=== PATIENT | male | born 1965 | race Native Hawaiian/Other Pacific Islander ===

== ENCOUNTER 2017-03-05 01:44 | Observation (INO) | payer SELFPAY ==
[2017-03-05] MEDS ORDERED: Tetanus/Diphtheria Toxoids 0.5 ml Syringe IM ONE (02:34)
[2017-03-05] MEDS ORDERED: Multivitamin (MVI) 10 ML, Thiamine 100 MG, Folic Acid 1 MG in Sodium Chloride 0.9% 1,00... IV ONE (02:34)
--- NOTE | 2017-03-05 02:36 | C.PDOC ---
History Of Present Illness <Lauren Kaur - Last Filed: 03/05/17 06:36> <Mauricio Millard - Last Filed: 03/05/17 14:21> 51 male BIBA due to public intoxication. At present time, pt appears intoxicated , awake, noted some scratches to Left index finger with mild finger. Pt unable to provide history of present illness due to intoxication. (Lauren Kaur) History Per: Patient, EMS <AaronoscarLauren shankar - Last Filed: 03/05/17 06:36> <Mauricio Millard - Last Filed: 03/05/17 14:21> Time Seen by Provider: 03/05/17 02:10 Chief Complaint (Nursing): Substance Abuse Past Medical History Reviewed: Historical Data, Nursing Documentation, Vital Signs - Medical History PMH: HTN Family History: States: Unknown Family Hx - Social History Hx Tobacco Use: No Hx Alcohol Use: Yes Hx Substance Use: No - Immunization History Hx Tetanus Toxoid Vaccination: No Hx Influenza Vaccination: No Hx Pneumococcal Vaccination: No <Lauren Kaur - Last Filed: 03/05/17 06:36> Review Of Systems Review Of Systems: ROS cannot be obtained secondary to pt's inabilty to answer questions. (pt intoxicated) <Lauren Kaur - Last Filed: 03/05/17 06:36> Physical Exam - Physical Exam Appears: Well Skin: Normal Color, Warm, Dry, Other (Left hand small punture wounds to Right 2nd and 3rd fingers. No cellulitis.) Eye(s): bilateral: PERRL (slugish eactive B/L) Nose: No Flaring Oral Mucosa: Moist Neck: Supple Cardiovascular: Rhythm Regular Respiratory: No Decreased Breath Sounds, No Accessory Muscle Use, No Rales, No Rhonchi, No Stridor, No Wheezing Gastrointestinal/Abdominal: Soft, No Tenderness, No Distention, No Guarding Extremity: Normal ROM, No Tenderness, No Pedal Edema, No Deformity Neurological/Psych: Normal Motor, Normal Reflexes <Lauren Kaur - Last Filed: 03/05/17 06:36> ED Course And Treatment - Laboratory Results Result Diagrams: 03/05/17 02:55 03/05/17 02:59 O2 Sat by Pulse Oximetry: 100 <Lauren Karu - Last Filed: 03/05/17 06:36> - Laboratory Results Result Diagrams: 03/05/17 02:55 03/05/17 02:59 <Mauricio Millard - Last Filed: 03/05/17 14:21> ED OBSERVATION Date of observation admission: 03/05/17 Time of observation admission: 02:10 <Lauren Kaur - Last Filed: 03/05/17 06:36> Discharge: Yes <Mauricio Millard - Last Filed: 03/05/17 14:21> - Observation admission statement Patient is being placed in observation because:: Alcohol intoxication (Lauren Kaur) - Goals of Observation Goals of observation are:: Diagnostics, neuro-re recheck, sx tx, sobriety, re-evaluation (Lauren Kaur) - Progress Note Progress Note: 03/05/17 03:43, pt sleeping comfortably, not n nay apparent distress. Pt is easily arousal to verbal stimuli. Neurologicaly intact. Blood work review and appears without acute abnormalities. Alcohol, serum 400 Bana bag infusion. 05:51, pt sleeping comfortably, not n nay apparent distress. Pt is easily arousal to verbal stimuli. Neurologicaly intact. Hydration continue At 06:36, pt sleeping , not in any apparent distress. case sign out to CAITLYN Hood and . Sobriety, re-evaluation, dispo- pending (Lauren Kaur) 830 Sleeping. 1030 Sleeping. 1230 Sleeping. 1420 Patient awake, dressed, steady gait, will discharge. (Mauricio Millard) Disposition <Lauren Kaur - Last Filed: 03/05/17 06:36> - Disposition Disposition Time: 02:10 <Mauricio Millard - Last Filed: 03/05/17 14:21> - Disposition Disposition: HOME/ ROUTINE Condition: STABLE - Clinical Impression Clinical Impression: Intoxication
[2017-03-05 02:59] LABS: BASO # 0.1 K/uL (0.0-0.2); BASO % 1.7 % (0.0-2.0); EOS % 0.7 % (0.0-4.0); LYMPH # 1.9 K/uL (1.0-4.3); LYMPH % 38.2 % (20.0-40.0); MEAN CELL VOLUME 78.4 fL (80.0-94.0); MEAN CORPUSCULAR HEMOGLOBIN 24.8 pg (27.0-31.0); MEAN CORPUSCULAR HGB CONC 31.7 g/dL (33.0-37.0); MONO # 0.4 K/uL (0.0-0.8); NRBC % 0.3 % (0.0-2.0); RED CELL DISTRIBUTION WIDTH 21.2 % (11.5-14.5); WHITE BLOOD COUNT 4.9 K/uL (4.8-10.8)
[2017-03-05 03:04] LABS: CHLORIDE 95 mmol/L (98-107); SODIUM 142 mmol/L (132-148)
[2017-03-05 03:06] LABS: GFR AFRICAN-AMERICAN > 60
[2017-03-05 03:07] LABS: ALB/GLOB RATIO 0.9 (1.0-2.1); ALKALINE PHOSPHATASE 181 U/L (38-126); ALT/SGPT 44 U/L (21-72); AST/SGOT 195 U/L (17-59); BILIRUBIN,TOTAL 1.4 mg/dL (0.2-1.3); BLOOD UREA NITROGEN 8 mg/dL (9-20); CALCIUM 8.2 mg/dl (8.6-10.4); CARBON DIOXIDE 26 mmol/L (22-30); GLUCOSE,RANDOM 81 mg/dL (75-110); TOTAL PROTEIN 7.5 g/dL (6.3-8.3)
[2017-03-05 03:30] LABS: ALCOHOL SERUM 460 mg/dl (0-10)
[2017-03-05 07:23] VITALS: TEMP 97.7
[2017-03-05 14:29] VITALS: BP 119/80; PULSE 79; RESP 15; O2SAT 99
== END 2017-03-05 14:21 | disposition home or self-care (01) ==
LOC: C.ER 01:44 → C.9OBSV 02:35
PROVIDERS: ADMIT Emergency Medicine; ATTEND Emergency Medicine
DX: F10.120 Alcohol abuse with intoxication, uncomplicated (principal); Y90.8 Blood alcohol level of 240 mg/100 ml or more; I10 Essential (primary) hypertension
CPT/HCPCS: 80053; 85025; 90471; 90714; 99284; G0378; G0480; J3411; J7040

== ENCOUNTER 2017-06-07 00:37 | Emergency (ER) | payer SELFPAY ==
[2017-06-07 01:13] VITALS: O2SAT 100
--- NOTE | 2017-06-07 05:06 | C.PDOC ---
History Of Present Illness 51 year old male presents to the ER with a complaint of chronic body aches. Patient admits to ETOH use tonight; denies fever or other complaints at this time. Time Seen by Provider: 06/07/17 02:02 Chief Complaint (Nursing): Abdominal Pain History Per: Patient History/Exam Limitations: no limitations Onset/Duration Of Symptoms: Hrs Current Symptoms Are (Timing): Still Present Location Of Pain/Discomfort: Other (Chronic body aches) Radiation Of Pain To:: None Quality Of Discomfort: Unable To Describe Associated Symptoms: denies: Fever, Chills Exacerbating Factors: None Alleviating Factors: None Recent travel outside of the [place]: No Past Medical History Reviewed: Historical Data, Nursing Documentation, Vital Signs Vital Signs: Last Vital Signs Temp 97.6 F 06/07/17 01:10 Pulse 98 H 06/07/17 01:10 Resp 16 06/07/17 01:10 BP 117/84 06/07/17 01:10 Pulse Ox 100 06/07/17 05:12 - Medical History PMH: HTN Surgical History: No Surg Hx Family History: States: Unknown Family Hx - Social History Hx Tobacco Use: No Hx Alcohol Use: Yes Hx Substance Use: No - Immunization History Hx Tetanus Toxoid Vaccination: No Hx Influenza Vaccination: No Hx Pneumococcal Vaccination: No Review Of Systems Constitutional: Positive for: Other (Chronic body aches). Negative for: Fever, Chills Gastrointestinal: Negative for: Nausea, Vomiting, Diarrhea Physical Exam - Physical Exam Appears: Non-toxic, No Acute Distress, Other (ETOH on breath) Skin: Normal Color, Warm, Dry Head: Atraumatic, Normacephalic Eye(s): bilateral: Normal Inspection, EOMI Oral Mucosa: Moist Neck: Normal, No Midline Cervical Tenderness, No Paracervical Tenderness, Supple Chest: Symmetrical, No Tenderness Cardiovascular: Rhythm Regular Respiratory: Normal Breath Sounds, No Rales, No Rhonchi, No Wheezing Gastrointestinal/Abdominal: Soft, No Tenderness Back: No CVA Tenderness, No Vertebral Tenderness, No Paraspinal Tenderness Extremity: Normal ROM (x4) Extremity: Bilateral: Atraumatic Neurological/Psych: Oriented x3, Normal Speech Gait: Unsteady ED Course And Treatment O2 Sat by Pulse Oximetry: 100 (Room air) Pulse Ox Interpretation: Normal Progress Note: Pt is now awake and ambulatory in ED with steady gait Disposition - Disposition Disposition: HOME/ ROUTINE Disposition Time: 06:15 Condition: STABLE Instructions: Abuse of Alcohol (ED) Forms: [email or web address] (Fijian) - Clinical Impression Clinical Impression: Alcohol dependence - Scribe Statement The provider has reviewed the documentation as recorded by the Scribsalvatore Huffman All medical record entries made by the Scribe were at my direction and personally dictated by me. I have reviewed the chart and agree that the record accurately reflects my personal performance of the history, physical exam, medical decision making, and the department course for this patient. I have also personally directed, reviewed, and agree with the discharge instructions and disposition.
[2017-06-07 06:51] VITALS: BP 126/72; PULSE 76; RESP 20; TEMP 98.2
== END 2017-06-07 06:30 | disposition home or self-care (01) ==
LOC: C.ER 00:37
DX: F10.20 Alcohol dependence, uncomplicated (principal); Y90.9 Presence of alcohol in blood, level not specified

== ENCOUNTER 2017-06-22 20:28 | Emergency (ER) | payer SELFPAY ==
--- NOTE | 2017-06-22 20:51 | C.PDOC ---
History Of Present Illness 51 year old male is brought to the ED by EMS for evaluation after he was found publicly intoxicated prior to arrival. Patient admits he has been drinking since noon today and has no physical complaints at this time. Chief Complaint (Nursing): Substance Abuse History Per: Patient, EMS History/Exam Limitations: intoxication Onset/Duration Of Symptoms: Hrs Current Symptoms Are (Timing): Still Present Suicide/Self Injury Attempted (Context): None Modifying Factor(s): Alcohol Associated Symptoms: denies: Suicidal Thoughts, Suicidal Plan Involuntary Hold By: None Recent travel outside of the [place]: No Additional History Per: Patient, EMS Past Medical History Reviewed: Historical Data, Nursing Documentation, Vital Signs Vital Signs: Last Vital Signs Temp 98.8 F 06/23/17 01:24 Pulse 98 H 06/23/17 01:24 Resp 18 06/23/17 01:24 BP 100/50 L 06/23/17 01:24 Pulse Ox 97 06/23/17 01:24 - Medical History PMH: HTN Surgical History: No Surg Hx Family History: States: Unknown Family Hx - Social History Hx Tobacco Use: No Hx Alcohol Use: Yes Hx Substance Use: No - Immunization History Hx Tetanus Toxoid Vaccination: No Hx Influenza Vaccination: No Hx Pneumococcal Vaccination: No Review Of Systems Psych: Positive for: Other (EtOH intoxication ). Negative for: Suicidal ideation Physical Exam - Physical Exam Appears: No Acute Distress, Other (visibly intoxicated ) Skin: Normal Color, Warm, Dry Head: Atraumatic, Normacephalic Eye(s): bilateral: Normal Inspection Oral Mucosa: Moist, Other (alcohol odor on breath ) Neck: Supple Chest: Symmetrical, No Deformity, No Tenderness Cardiovascular: Rhythm Regular, No Murmur Respiratory: Normal Breath Sounds, No Rales, No Rhonchi, No Wheezing Extremity: Normal ROM, Capillary Refill (less than 2 seconds ) Neurological/Psych: Other (arousable to touch and verbal stimuli) Gait: Unsteady ED Course And Treatment O2 Sat by Pulse Oximetry: 98 (on RA) Pulse Ox Interpretation: Normal Disposition Counseled Patient/Family Regarding: Diagnosis - Disposition Referrals: [facility] [Outside] Disposition: HOME/ ROUTINE Disposition Time: 06:00 Condition: STABLE Instructions: Alcohol Intoxication (GEN), Abuse of Alcohol (ED) Forms: [employer] (Swiss) - POA Present On Arrival: None - Clinical Impression Clinical Impression: Intoxication, Alcohol abuse - Scribe Statement The provider has reviewed the documentation as recorded by the Scribe (Lesly Peng) Provider Attestation: All medical record entries made by the Scribe were at my direction and personally dictated by me. I have reviewed the chart and agree that the record accurately reflects my personal performance of the history, physical exam, medical decision making, and the department course for this patient. I have also personally directed, reviewed, and agree with the discharge instructions and disposition.
[2017-06-23 01:26] VITALS: RESP 18
[2017-06-23 05:06] VITALS: O2SAT 98
[2017-06-23 05:19] VITALS: BP 111/61; PULSE 90; TEMP 98.6
== END 2017-06-23 05:21 | disposition home or self-care (01) ==
LOC: C.ER 20:28
DX: F10.129 Alcohol abuse with intoxication, unspecified (principal); Y90.9 Presence of alcohol in blood, level not specified

== ENCOUNTER 2017-07-17 21:11 | Inpatient (IN) | payer OTHER ==
[2017-07-17] MEDS ORDERED: Multivitamin (MVI) 10 ML, Thiamine 100 MG, Folic Acid 1 MG in Sodium Chloride 0.9% 1,00... IV ONE (21:49)
[2017-07-17] MEDS ORDERED: Sodium Chloride 0.9% 1,000 ML ONE (21:55)
--- NOTE | 2017-07-17 21:57 | C.PDOC ---
History Of Present Illness 51 y/o M BIBEMS with alcohol intoxication. Patient states he has had abdominal pain for 1 week with NBNB vomiting and NB diarrhea. Denies fever, chills, chest pain, dyspnea. Time Seen by Provider: 07/17/17 21:30 Chief Complaint (Nursing): Substance Abuse Past Medical History Vital Signs: Last Vital Signs Temp 98.3 F 07/17/17 21:24 Pulse 84 07/17/17 21:24 Resp 18 07/17/17 21:24 BP 113/71 07/17/17 21:24 Pulse Ox 100 07/18/17 00:27 - Medical History PMH: HTN Denies: Chronic Kidney Disease Family History: States: Unknown Family Hx - Social History Hx Tobacco Use: No Hx Alcohol Use: Yes Hx Substance Use: No - Immunization History Hx Tetanus Toxoid Vaccination: No Hx Influenza Vaccination: No Hx Pneumococcal Vaccination: No Review Of Systems Except As Marked, All Systems Reviewed And Found Negative. Constitutional: Negative for: Fever Cardiovascular: Negative for: Chest Pain Physical Exam - Physical Exam Additional Physical Exam Comments: Constitutional: No acute distress. Head: Normocephalic. Atraumatic. Eyes: PERRL. ENT: Moist mucous membranes. Neck: Supple. Cardiovascular: Regular rate. Radial pulse 2+ bilaterally. Chest: No tenderness. Respiratory: Clear to auscultation bilaterally. GI: Soft. RUQ tenderness. Nondistended. Back: No CVA tenderness. Musculoskeletal: No tenderness or swelling of extremities. Skin: No rash. Neurologic: Alert, no focal deficit. No hand tremor. No tongue fasciculations. ED Course And Treatment - Laboratory Results Result Diagrams: 07/17/17 22:18 07/17/17 22:18 O2 Sat by Pulse Oximetry: 100 Medical Decision Making Medical Decision Making: CXR no acute disease. IMPRESSION: Significant bowel wall thickening involving the colon, appearance most consistent with acute colitis, cannot exclude underlying neoplasm. Small to moderate ascites. Fatty infiltration of the liver. Heterogeneous appearance to hepatic parenchyma. Some of appearance may be due to transient hepatic attenuation differences, concern for underlying lesion. Followup multiphase CT imaging with dedicated protocol or MRI recommended. Hiatal hernia. Cipro/Flagyl administered. EKG NSR 95 bpm, no ST elevations. Potassium supplementation initiated. Disposition - Disposition Disposition: HOSPITALIZED Disposition Time: 00:31 Condition: GUARDED Forms: [employer] (Serbian) - Clinical Impression Clinical Impression: Hypokalemia, Acute colitis, Alcohol intoxication
[2017-07-17 22:26] LABS: BASO # 0.1 K/uL (0.0-0.2); BASO % 1.5 % (0.0-2.0); LYMPH # 1.5 K/uL (1.0-4.3); LYMPH % 18.6 % (20.0-40.0); MEAN CELL VOLUME 87.5 fL (80.0-94.0); MEAN CORPUSCULAR HEMOGLOBIN 29.6 pg (27.0-31.0); MEAN CORPUSCULAR HGB CONC 33.8 g/dL (33.0-37.0); MEAN PLATELET VOLUME 7.6 fL (7.2-11.7); MONO # 0.7 K/uL (0.0-0.8); MONO % 8.9 % (0.0-10.0); NEUT # 5.8 K/uL (1.8-7.0); NRBC % 0.1 % (0.0-2.0); RBC 2.79 Mil/uL (4.40-5.90); RED CELL DISTRIBUTION WIDTH 23.1 % (11.5-14.5); WHITE BLOOD COUNT 8.2 K/uL (4.8-10.8)
[2017-07-17 22:27] LABS: HEMOGLOBIN 8.3 g/dL (12.0-18.0)
[2017-07-17 22:40] LABS: ALB/GLOB RATIO 0.8 (1.0-2.1); ALBUMIN 2.9 g/dL (3.5-5.0); ALT/SGPT 41 U/L (21-72); AST/SGOT 201 U/L (17-59); BLOOD UREA NITROGEN 4 mg/dL (9-20); CALCIUM 7.1 mg/dl (8.6-10.4); GFR AFRICAN-AMERICAN > 60; GFR NON-AFRICAN AMERICAN > 60; LIPASE 116 U/L (23-300)
[2017-07-17] MEDS ORDERED: Iodixanol 320 MG/ML 100 ML BOTTLE IV ONE (23:03)
--- NOTE | 2017-07-18 00:25 | CT ---
EXAM: CT Abdomen and Pelvis With Intravenous Contrast CLINICAL HISTORY: 51 years old, male; Pain; Abdominal pain; Generalized; Additional info: Abd pain TECHNIQUE: Axial computed tomography images of the abdomen and pelvis with intravenous contrast. All CT scans at this facility use one or more dose reduction techniques, viz.: automated exposure control; ma/kV adjustment per patient size (including targeted exams where dose is matched to indication; i.e. head); or iterative reconstruction technique. Coronal and sagittal reformatted images were created and reviewed. CONTRAST: 100 mL of [id number] administered intravenously. COMPARISON: No relevant prior studies available. FINDINGS: Lower thorax: Small left effusion. ABDOMEN: Liver: Fatty infiltration of the liver. Heterogeneous appearance to hepatic parenchyma. Some of appearance may be due to transient hepatic attenuation differences, concern for underlying lesion. Followup multiphase imaging recommended. Gallbladder and bile ducts: No acute abnormality as visualized. Pancreas: No acute abnormality as visualized. Spleen: No splenomegaly. Adrenals: No acute abnormality as visualized. Kidneys and ureters: Symmetric emhancement. No hydronephrosis. Stomach and bowel: Limited evaluation without enteric contrast. Small hiatal hernia. Significant bowel wall thickening involving the colon, appearance most consistent with acute colitis, cannot exclude underlying neoplasm. No obstruction. PELVIS: Bladder: No acute abnormality as visualized. Reproductive: No acute abnormality as visualized. ABDOMEN and PELVIS: Intraperitoneal space: Small to moderate ascites. No free air. Bones: Degenerative changes. Soft tissues: No acute abnormality as visualized. Vasculature: No acute abnormality as visualized. No abdominal aortic aneurysm. Lymph nodes: No acute abnormality as visualized. IMPRESSION: Significant bowel wall thickening involving the colon, appearance most consistent with acute colitis, cannot exclude underlying neoplasm. Small to moderate ascites. Fatty infiltration of the liver. Heterogeneous appearance to hepatic parenchyma. Some of appearance may be due to transient hepatic attenuation differences, concern for underlying lesion. Followup multiphase CT imaging with dedicated protocol or MRI recommended. Hiatal hernia.
[2017-07-18] MEDS ORDERED: Ciprofloxacin 400mg/200ml D5W 400 MG/200 ML BAG IVPB STA (00:30)
[2017-07-18] MEDS ORDERED: metroNIDAZOLE IV 500 mg/100 ml 500 MG/100 ML BAG IVPB STA (00:30)
[2017-07-18] MEDS ORDERED: Multivitamin (MVI) 10 ML, Thiamine 100 MG, Folic Acid 1 MG in Sodium Chloride 0.9% 1,00... IV ONE (01:32)
[2017-07-18] MEDS: Potassium Chloride 20 mEq ER Tab PO SCH ×4 (01:55→14:39)
[2017-07-18] MEDS ORDERED: Potassium Chloride 20 mEq ER Tab PO ONE ×2 (01:56→01:58)
[2017-07-18] MEDS ORDERED: Ciprofloxacin 400mg/200ml D5W 400 MG/200 ML BAG IVPB SCH (02:00)
[2017-07-18] MEDS ORDERED: metroNIDAZOLE IV 500 mg/100 ml 500 MG/100 ML BAG ONE (02:15)
[2017-07-18] MEDS ORDERED: Ciprofloxacin 400mg/200ml D5W 400 MG/200 ML BAG IVPB ONE (02:16)
--- NOTE | 2017-07-18 02:51 | CP.PCM.HP ---
<Tima Beth - Last Filed: 07/18/17 02:53> History of Present Illness - History of Present Illness History of Present Illness: PGY-1 H&P for Dr[address] Tinajero CC: abdominal pain This is a 51 year old male with PMHx alcohol abuse who presents to the ED complaining of abdominal pain that began 1 week ago. Patient states that it is a sharp pain localized on the right side of the abdomen and radiates diffusely. It is constant and nothing seems to alleviate it. Patient complains of 8-10 bouts of diarrhea during this week as well. Denies fever, chills, nausea, vomiting, chest pain, dyspnea, dysuria. PMHx: Denies PSHx: Denies Allergies: Denies Social: Denies ever smoking. Denies drugs. Patient has 2-3 drinks of Bacardi daily. Family Hx: denies PMD: denies Present on Admission - Present on Admission Any Indicators Present on Admission: No Review of Systems - Constitutional Constitutional: absent: Chills, Fever - EENT Eyes: absent: Change in Vision Ears: absent: Decreased Hearing Nose/Mouth/Throat: absent: Nasal Congestion - Cardiovascular Cardiovascular: absent: Chest Pain - Respiratory Respiratory: absent: Dyspnea - Gastrointestinal Gastrointestinal: Abdominal Pain (right sided), Diarrhea. absent: Constipation , Nausea, Vomiting - Genitourinary Genitourinary: absent: Dysuria - Musculoskeletal Musculoskeletal: absent: Back Pain - Integumentary Integumentary: absent: Rash - Neurological Neurological: absent: Weakness - Psychiatric Psychiatric: absent: Anxiety - Endocrine Endocrine: absent: Fatigue, Palpitations Past Patient History - Infectious Disease Hx of Infectious Diseases: None - Past Social History Smoking Status: Never Smoked - CARDIAC Hx Hypertension: Yes - PULMONARY Hx Respiratory Disorders: No - NEUROLOGICAL Hx Neurological Disorder: No - HEENT Hx HEENT Problems: No - RENAL Hx Chronic Kidney Disease: No - ENDOCRINE/METABOLIC Hx Endocrine Disorders: No - HEMATOLOGICAL/ONCOLOGICAL Hx Blood Disorders: No - INTEGUMENTARY Hx Dermatological Problems: No - MUSCULOSKELETAL/RHEUMATOLOGICAL Hx Musculoskeletal Disorders: No - GASTROINTESTINAL Hx Gastrointestinal Disorders: Yes Hx Liver Failure: Yes Other/Comment: LIVER CIRRHOSIS AND ASCITES. - GENITOURINARY/GYNECOLOGICAL Hx Genitourinary Disorders: No - PSYCHIATRIC Hx Substance Use: No - SURGICAL HISTORY Hx Surgeries: No - ANESTHESIA Hx Anesthesia: No Meds Allergies/Adverse Reactions: Allergies Allergy/AdvReac Type Severity Reaction Status Date / Time No Known Allergies Allergy Verified 06/22/17 20:40 Physical Exam - Constitutional Appears: No Acute Distress - Head Exam Head Exam: ATRAUMATIC, NORMOCEPHALIC - Eye Exam Eye Exam: EOMI, PERRL - ENT Exam ENT Exam: Mucous Membranes Moist - Respiratory Exam Respiratory Exam: Clear to Auscultation Bilateral. absent: Rales, Rhonchi, Wheezes - Cardiovascular Exam Cardiovascular Exam: REGULAR RHYTHM, +S1, +S2 - GI/Abdominal Exam GI & Abdominal Exam: Distended, Guarding, Normal Bowel Sounds, Soft, Tenderness (diffusely). absent: Firm - Extremities Exam Extremities exam: Positive for: pedal pulses present. Negative for: pedal edema , tenderness - Neurological Exam Neurological exam: Alert, CN II-XII Intact, Oriented x3 - Psychiatric Exam Psychiatric exam: Normal Affect, Normal Mood - Skin Skin Exam: Dry, Warm Results - Vital Signs Recent Vital Signs: Last Vital Signs Temp 97.8 F 07/18/17 02:30 Pulse 83 07/18/17 02:30 Resp 16 07/18/17 02:30 BP 115/76 07/18/17 02:30 Pulse Ox 95 07/18/17 02:30 - Labs Result Diagrams: 07/17/17 22:18 07/17/17 22:18 Labs: Laboratory Results - last 24 hr 07/17/17 07/17/17 07/17/17 21:35 22:18 22:18 WBC 8.2 D RBC 2.79 L Hgb 8.3 L Hct 24.4 L MCV 87.5 D MCH 29.6 MCHC 33.8 RDW 23.1 H Plt Count 215 D MPV 7.6 Neut % (Auto) 71.0 Lymph % (Auto) 18.6 L Whitman % (Auto) 8.9 Eos % (Auto) 0.0 Baso % (Auto) 1.5 Neut # 5.8 Lymph # 1.5 Whitman # 0.7 Eos # 0.0 Baso # 0.1 Sodium 134 Potassium 1.8 L* D Chloride 94 L Carbon Dioxide 26 Anion Gap 16 BUN 4 L Creatinine 0.5 L Est GFR ( Amer) > 60 Est GFR (Non-Af Amer) > 60 POC Glucose (mg/dL) 130 H Random Glucose 120 H Calcium 7.1 L Magnesium Total Bilirubin 2.2 H AST 201 H ALT 41 Alkaline Phosphatase 267 H Total Protein 6.5 Albumin 2.9 L Globulin 3.7 Albumin/Globulin Ratio 0.8 L Lipase 116 Alcohol, Quantitative 292 H 07/18/17 01:12 WBC RBC Hgb Hct MCV MCH MCHC RDW Plt Count MPV Neut % (Auto) Lymph % (Auto) Whitman % (Auto) Eos % (Auto) Baso % (Auto) Neut # Lymph # Whitman # Eos # Baso # Sodium Potassium Chloride Carbon Dioxide Anion Gap BUN Creatinine Est GFR ( Amer) Est GFR (Non-Af Amer) POC Glucose (mg/dL) Random Glucose Calcium Magnesium 1.4 L Total Bilirubin AST ALT Alkaline Phosphatase Total Protein Albumin Globulin Albumin/Globulin Ratio Lipase Alcohol, Quantitative Assessment & Plan - Assessment and Plan (Free Text) Plan: Colitis CT abd/pelvis with IV contrast: Significant bowel wall thickening involving the colon, appearance most consistent with acute colitis, cannot exclude underlying neoplasm. Small to moderate ascites. Fatty infiltration of the liver. Heterogeneous appearance to hepatic parenchyma. Some of appearance may be due to transient hepatic attenuation differences, concern for underlying lesion. Cipro 400 IV daily Flagyl 500 IV Q8 Alcohol abuse Elevated serum alcohol Initiated Ativan taper due to elevated LFTs CIWA protocol Seizure and aspiration precautions Banana Bag x1 IV multivitamins IV folate and thiamine NS 100cc/hr Hypokalemia K riders given in ED Kdurr 40 mEq PO Q4H Prophylactic Measure SCDs NPO for now Case DW Dr. Tanvi Beth PGY-1 <Julio Tinajero - Last Filed: 07/18/17 05:35> Results - Vital Signs Recent Vital Signs: Last Vital Signs Temp 97.4 F L 07/18/17 03:32 Pulse 103 H 07/18/17 03:45 Resp 21 07/18/17 03:32 BP 112/71 07/18/17 03:32 Pulse Ox 97 07/18/17 03:32 - Labs Result Diagrams: 07/17/17 22:18 07/17/17 22:18 Labs: Laboratory Results - last 24 hr 07/17/17 07/17/17 07/17/17 21:35 22:18 22:18 WBC 8.2 D RBC 2.79 L Hgb 8.3 L Hct 24.4 L MCV 87.5 D MCH 29.6 MCHC 33.8 RDW 23.1 H Plt Count 215 D MPV 7.6 Neut % (Auto) 71.0 Lymph % (Auto) 18.6 L Whitman % (Auto) 8.9 Eos % (Auto) 0.0 Baso % (Auto) 1.5 Neut # 5.8 Lymph # 1.5 Whitman # 0.7 Eos # 0.0 Baso # 0.1 Sodium 134 Potassium 1.8 L* D Chloride 94 L Carbon Dioxide 26 Anion Gap 16 BUN 4 L Creatinine 0.5 L Est GFR ( Amer) > 60 Est GFR (Non-Af Amer) > 60 POC Glucose (mg/dL) 130 H Random Glucose 120 H Calcium 7.1 L Magnesium Total Bilirubin 2.2 H AST 201 H ALT 41 Alkaline Phosphatase 267 H Total Protein 6.5 Albumin 2.9 L Globulin 3.7 Albumin/Globulin Ratio 0.8 L Lipase 116 Alcohol, Quantitative 292 H 07/18/17 01:12 WBC RBC Hgb Hct MCV MCH MCHC RDW Plt Count MPV Neut % (Auto) Lymph % (Auto) Whitman % (Auto) Eos % (Auto) Baso % (Auto) Neut # Lymph # Whitman # Eos # Baso # Sodium Potassium Chloride Carbon Dioxide Anion Gap BUN Creatinine Est GFR ( Amer) Est GFR (Non-Af Amer) POC Glucose (mg/dL) Random Glucose Calcium Magnesium 1.4 L Total Bilirubin AST ALT Alkaline Phosphatase Total Protein Albumin Globulin Albumin/Globulin Ratio Lipase Alcohol, Quantitative Assessment & Plan - Date & Time Date: 07/18/17 (I have seen and examined the patient. I agree with the findings and plan of care as documented by Dr. Beth. Patient with colitis. Cipro and Flagyl for now. Also with hypokalemia. Replete. Check Magnesium level. [facility] protocol for history of alcohol abuse. Monitor for acute changes.) Time: 05:33 Attending/Attestation - Attestation I have personally seen and examined this patient.: Yes I have fully participated in the care of the patient.: Yes I have reviewed all pertinent clinical information: Yes
[2017-07-18] MEDS ORDERED: Moxifloxacin IV 400mg/250ml NS 400 MG/250 ML BAG IVPB SCH (05:00)
[2017-07-18] MEDS ORDERED: metroNIDAZOLE IV 500 mg/100 ml 500 MG/100 ML BAG IVPB SCH ×2 (06:00→08:00)
[2017-07-18] MEDS: metroNIDAZOLE IV 500 mg/100 ml 500 MG/100 ML BAG IVPB SCH ×2 (08:27→15:56)
[2017-07-18] MEDS ORDERED: Sodium Chloride 0.9% 1,000 ML IV SCH ×2 (08:30→11:28)
--- NOTE | 2017-07-18 08:38 | RAD ---
HISTORY: hypokalemia COMPARISON: Comparison is made with 11/18/2015 FINDINGS: LUNGS: No evidence of new infiltrate or consolidation in the lungs PLEURA: No significant pleural effusion identified, no pneumothorax apparent. CARDIOVASCULAR: Normal. OSSEOUS STRUCTURES: No significant abnormalities. VISUALIZED UPPER ABDOMEN: Normal. OTHER FINDINGS: None. IMPRESSION: No significant interval change in the lungs noted since the previous exam.
[2017-07-18 08:40] LABS: BASO # 0.1 K/uL (0.0-0.2); EOS % 0.4 % (0.0-4.0); HEMOGLOBIN 8.6 g/dL (12.0-18.0); LYMPH # 1.5 K/uL (1.0-4.3); LYMPH % 21.6 % (20.0-40.0); MEAN CELL VOLUME 88.2 fL (80.0-94.0); MEAN CORPUSCULAR HEMOGLOBIN 29.7 pg (27.0-31.0); MEAN CORPUSCULAR HGB CONC 33.7 g/dL (33.0-37.0); MEAN PLATELET VOLUME 8.1 fL (7.2-11.7); MONO # 0.5 K/uL (0.0-0.8); MONO % 7.3 % (0.0-10.0); RBC 2.9 Mil/uL (4.40-5.90); RED CELL DISTRIBUTION WIDTH 23.2 % (11.5-14.5)
[2017-07-18] MEDS ORDERED: Magnesium Sulfate 1 gm in D5W 1 GM/100 ML BAG IVPB ONE ×2 (09:30→16:00)
[2017-07-18 09:52] LABS: ALB/GLOB RATIO 0.7 (1.0-2.1); ALBUMIN 2.5 g/dL (3.5-5.0); ALT/SGPT 34 U/L (21-72); AST/SGOT 217 U/L (17-59); BLOOD UREA NITROGEN 4 mg/dL (9-20); CALCIUM 6.9 mg/dl (8.6-10.4); GFR AFRICAN-AMERICAN > 60; GFR NON-AFRICAN AMERICAN > 60
[2017-07-18] MEDS: Thiamine 100 mg/ml Inj IV SCH (10:18)
--- NOTE | 2017-07-18 11:16 | CP.PCM.PN ---
<Abebe Kendrick - Last Filed: 07/18/17 12:06> Subjective - Date & Time of Evaluation Date of Evaluation: 07/18/17 Time of Evaluation: 11:14 - Subjective Subjective: PGY-[address] Huitron. No acute events overnight noted. Patient states he has diffuse abdominal pain but states it is worse in the upper right quadrant. He had 3 episodes of diarrhea last night. He denies vomiting. He remains lethargic but is able to follow commands. He denies chest pain, shortness of breath, fever, chills. Objective - Vital Signs/Intake and Output Vital Signs (last 24 hours): Temp Pulse Resp BP Pulse Ox 97.7 F 104 H 20 123/79 99 07/18/17 07:52 07/18/17 07:52 07/18/17 07:52 07/18/17 07:52 07/18/17 07:52 - Medications Medications: Current Medications Folic Acid 1 mg/ Sodium (Chloride) 100.2 mls @ 60 mls/hr IV DAILY [facility] Metronidazole (Flagyl) 500 mg in 100 mls @ 100 mls/hr IVPB Q8H [facility] Last Admin: 07/18/17 08:27 Dose: 100 mls/hr Ciprofloxacin (Cipro 400mg/200ml Dsw) 400 mg in 200 mls @ 133 mls/hr IVPB Q12H [facility] Sodium Chloride (Sodium Chloride 0.9%) 1,000 mls @ 100 mls/hr IV .Q10H [facility] Potassium Chloride (Potassium Chloride 20 Meq/100 Ml) 20 meq in 100 mls @ 50 mls/hr IVPB ONCE ONE Stop: 07/18/17 12:04 Lorazepam (Ativan) 2 mg PO Q4H [facility] PRN Reason: Taper Stop: 07/23/17 01:44 Last Admin: 07/18/17 05:39 Dose: 2 mg Pneumococcal Polyvalent Vaccine (Pneumovax 23 Vaccine) 0.5 ml IM .ONCE ONE Stop: 07/20/17 14:01 Potassium Chloride (K-Dur 20 Meq Er Tab) 40 meq PO Q4H [facility] Stop: 07/19/17 01:46 Last Admin: 07/18/17 05:39 Dose: 40 meq Thiamine HCl (Vitamin B1 Inj) 100 mg IV DAILY [facility] - Labs Labs: 07/18/17 08:18 07/18/17 09:37 - Additional Findings Additional findings: - Constitutional Appears: No Acute Distress - Head Exam Head Exam: ATRAUMATIC, NORMOCEPHALIC - Eye Exam Eye Exam: EOMI, PERRL - ENT Exam ENT Exam: Mucous Membranes Moist - Respiratory Exam Respiratory Exam: Clear to Auscultation Bilateral. absent: Rales, Rhonchi, Wheezes - Cardiovascular Exam Cardiovascular Exam: REGULAR RHYTHM, +S1, +S2 - GI/Abdominal Exam GI & Abdominal Exam: Distended, Guarding, Normal Bowel Sounds, Soft, Tenderness (diffusely). absent: Firm - Extremities Exam Extremities exam: Positive for: pedal pulses present. Negative for: pedal edema , tenderness - Neurological Exam Neurological exam: Alert, CN II-XII Intact, Oriented x3 No asterixis visible - Psychiatric Exam Psychiatric exam: Normal Affect, Normal Mood - Skin Skin Exam: Dry, Warm Assessment and Plan - Assessment and Plan (Free Text) Assessment: Colitis No leukocytosis, afebrile Consult GI, Dr South F/U Stool Giardia Ag, F/U Blood Culture, F/U Stool Culture, F/U Stool Ova and Parastie, F/U Stool leukocytes, F/U Clostridium Difficile Imaging: CT abd/pelvis with IV contrast 07/17: Significant bowel wall thickening involving the colon, appearance most consistent with acute colitis, cannot exclude underlying neoplasm. Small to moderate ascites. Fatty infiltration of the liver. Heterogeneous appearance to hepatic parenchyma. Some of appearance may be due to transient hepatic attenuation differences, concern for underlying lesion. Meds: Cipro 400 IV daily Flagyl 500 IV Q8 Alcohol abuse Elevated serum alcohol on admission 292 CIWA protocol Seizure and aspiration precautions Banana Bag x1, IV multivitamins, IV folate and thiamine Lipase NORMAL Ativan 2mg PO Q4h PRN NS 100cc/h F/U ammonia Ascites Consult GI, Dr South Likely 2/2 to [address] liver disease CT abd/pelvis shows small to moderate ascites IR for paracentesis * F/U cell count/differential, culture, albumin, total protein, cytology, amylase, triglycerides Hypokalemia Potassium 1.8 on admission K riders 20meq x3 given 07/17/17-07/18/17 Kdur 40 mEq PO Q4H Prophylactic Measure SCDs NPO for now Will wait for INR to return before starting pharm VTE prophylaxis <Kumaresan,Arulnangai - Last Filed: 07/19/17 14:58> Objective - Vital Signs/Intake and Output Vital Signs (last 24 hours): Temp Pulse Resp BP Pulse Ox 99.1 F 123 H 20 131/82 99 07/18/17 15:20 07/18/17 15:20 07/18/17 15:20 07/18/17 15:20 07/18/17 15:20 Intake and Output: 07/18/17 07/19/17 18:59 06:59 Intake Total 1220 Output Total 500 Balance 720 - Medications Medications: Current Medications Folic Acid 1 mg/ Sodium (Chloride) 100.2 mls @ 60 mls/hr IV DAILY [facility] Last Admin: 07/18/17 10:00 Dose: 60 mls/hr Metronidazole (Flagyl) 500 mg in 100 mls @ 100 mls/hr IVPB Q8H [facility] Last Admin: 07/18/17 15:56 Dose: 100 mls/hr Ciprofloxacin (Cipro 400mg/200ml Dsw) 400 mg in 200 mls @ 133 mls/hr IVPB Q12H [facility] Last Admin: 07/18/17 14:39 Dose: 133 mls/hr Potassium Chloride 20 meq/ (Sodium Chloride) 1,010 mls @ 100 mls/hr IV .Q10H6M [facility] Last Admin: 07/18/17 18:25 Dose: 100 mls/hr Lorazepam (Ativan) 2 mg PO Q4H PRN Pneumococcal Polyvalent Vaccine (Pneumovax 23 Vaccine) 0.5 ml IM .ONCE ONE Stop: 07/20/17 14:01 Potassium Chloride (Potassium Chloride Oral Soln) 40 meq PO Q6 [facility] Stop: 07/19/17 07:00 Last Admin: 07/18/17 17:26 Dose: 40 meq Thiamine HCl (Vitamin B1 Inj) 100 mg IV DAILY [facility] Last Admin: 07/18/17 10:18 Dose: Not Given - Labs Labs: 07/18/17 08:18 07/18/17 13:55 PT 16.9 SECONDS (9.7-12.2) H 07/18/17 13:52 INR 1.5 07/18/17 13:52 APTT 34 SECONDS (21-34) 07/18/17 13:52 Attending/Attestation - Attestation I have personally seen and examined this patient.: Yes I have fully participated in the care of the patient.: Yes I have reviewed all pertinent clinical information, including history, physical exam and plan: Yes Notes (Text): Patient was seen and examined.He was sleepy. case discussed with the resident plan-continue antibiotics,follow stool srudy paracentesis tomorrow. continue K supplement and monitor potassium level closely
--- NOTE | 2017-07-18 12:57 | CP.PCM.CON ---
History of Present Illness - History of Present Illness History of Present Illness: This is a 51 year old man withabdominal pain and diarrhea. Patient has a history of alcohol abuse, 2-3 drinks of rum daily, who developed sharp abdominal pain, maximal in the RUQ but radiating diffusely, one week ago. In addition , he noted diarrhea, 8-10 times daily, without bleeding. He denies having fever, chills, nausea, vomiting. Evaluation i [facility] ER showed anemia, HGB 8.3, hypokalemia (1.8), and elevated LFTs: AST 201, ALT 41, ALKP 267, TBILI 2.2. CT scan showed fatty liver, normal GB and bile ducts, colonic wall thickening suggestive of colitis, small to moderate ascites. Review of Systems - Constitutional Constitutional: absent: Chills, Fever - Cardiovascular Cardiovascular: absent: Chest Pain - Gastrointestinal Gastrointestinal: Abdominal Pain, Diarrhea. absent: Constipation, Nausea, Vomiting - Genitourinary Genitourinary: absent: Dysuria - Musculoskeletal Musculoskeletal: absent: Back Pain - Integumentary Integumentary: absent: Rash Past Patient History - Infectious Disease Hx of Infectious Diseases: None - Past Medical History & Family History Past Medical History?: Yes - Past Social History Smoking Status: Never Smoked - CARDIAC Hx Hypertension: Yes - PULMONARY Hx Respiratory Disorders: No - NEUROLOGICAL Hx Neurological Disorder: No - HEENT Hx HEENT Problems: No - RENAL Hx Chronic Kidney Disease: No - ENDOCRINE/METABOLIC Hx Endocrine Disorders: No - HEMATOLOGICAL/ONCOLOGICAL Hx Blood Disorders: No - INTEGUMENTARY Hx Dermatological Problems: No - MUSCULOSKELETAL/RHEUMATOLOGICAL Hx Musculoskeletal Disorders: No Hx Falls: No - GASTROINTESTINAL Hx Gastrointestinal Disorders: Yes Hx Liver Failure: Yes Other/Comment: LIVER CIRRHOSIS AND ASCITES. - GENITOURINARY/GYNECOLOGICAL Hx Genitourinary Disorders: No - PSYCHIATRIC Hx Substance Use: No - SURGICAL HISTORY Hx Surgeries: No - ANESTHESIA Hx Anesthesia: No Meds Allergies/Adverse Reactions: Allergies Allergy/AdvReac Type Severity Reaction Status Date / Time No Known Allergies Allergy Verified 06/22/17 20:40 - Medications Medications: Current Medications Folic Acid 1 mg/ Sodium (Chloride) 100.2 mls @ 60 mls/hr IV DAILY [facility] Last Admin: 07/18/17 10:00 Dose: 60 mls/hr Metronidazole (Flagyl) 500 mg in 100 mls @ 100 mls/hr IVPB Q8H [facility] Last Admin: 07/18/17 08:27 Dose: 100 mls/hr Ciprofloxacin (Cipro 400mg/200ml Dsw) 400 mg in 200 mls @ 133 mls/hr IVPB Q12H [facility] Sodium Chloride (Sodium Chloride 0.9%) 1,000 mls @ 100 mls/hr IV .Q10H [facility] Last Admin: 07/18/17 11:41 Dose: 100 mls/hr Lorazepam (Ativan) 2 mg PO Q4H [facility]N Pneumococcal Polyvalent Vaccine (Pneumovax 23 Vaccine) 0.5 ml IM .ONCE ONE Stop: 07/20/17 14:01 Potassium Chloride (K-Dur 20 Meq Er Tab) 40 meq PO Q4H [facility] Stop: 07/19/17 01:46 Last Admin: 07/18/17 10:32 Dose: 40 meq Thiamine HCl (Vitamin B1 Inj) 100 mg IV DAILY [facility] Physical Exam - Head Exam Head Exam: ATRAUMATIC, NORMOCEPHALIC - Neck Exam Neck exam: Negative for: Lymphadenopathy, Thyromegaly - Respiratory Exam Respiratory Exam: NORMAL BREATHING PATTERN. absent: Rales, Rhonchi, Wheezes - Cardiovascular Exam Cardiovascular Exam: REGULAR RHYTHM, +S1, +S2. absent: Gallop, Rubs, Systolic Murmur - GI/Abdominal Exam GI & Abdominal Exam: Distended, Normal Bowel Sounds, Soft. absent: Mass, Organomegaly, Tenderness - Rectal Exam Rectal Exam: Deferred - Extremities Exam Extremities exam: Negative for: calf tenderness, pedal edema Results - Vital Signs Recent Vital Signs: Last Vital Signs Temp 97.7 F 07/18/17 07:52 Pulse 104 H 07/18/17 07:52 Resp 20 07/18/17 07:52 BP 123/79 07/18/17 07:52 Pulse Ox 99 07/18/17 07:52 - Labs Result Diagrams: 07/18/17 08:18 07/18/17 09:37 Labs: Laboratory Results - last 24 hr 07/17/17 07/17/17 07/17/17 21:35 22:18 22:18 WBC 8.2 D RBC 2.79 L Hgb 8.3 L Hct 24.4 L MCV 87.5 D MCH 29.6 MCHC 33.8 RDW 23.1 H Plt Count 215 D MPV 7.6 Neut % (Auto) 71.0 Lymph % (Auto) 18.6 L [place] % (Auto) 8.9 Eos % (Auto) 0.0 Baso % (Auto) 1.5 Neut # 5.8 Lymph # 1.5 [place] # 0.7 Eos # 0.0 Baso # 0.1 Sodium 134 Potassium 1.8 L* D Chloride 94 L Carbon Dioxide 26 Anion Gap 16 BUN 4 L Creatinine 0.5 L Est GFR ( Amer) > 60 Est GFR (Non-Af Amer) > 60 POC Glucose (mg/dL) 130 H Random Glucose 120 H Calcium 7.1 L Magnesium Total Bilirubin 2.2 H AST 201 H ALT 41 Alkaline Phosphatase 267 H Total Protein 6.5 Albumin 2.9 L Globulin 3.7 Albumin/Globulin Ratio 0.8 L Lipase 116 Alcohol, Quantitative 292 H 07/18/17 07/18/17 07/18/17 01:12 08:18 09:37 WBC 7.0 RBC 2.90 L Hgb 8.6 L Hct 25.6 L MCV 88.2 MCH 29.7 MCHC 33.7 RDW 23.2 H Plt Count 192 MPV 8.1 Neut % (Auto) Lymph % (Auto) 21.6 [place] % (Auto) 7.3 Eos % (Auto) 0.4 Baso % (Auto) 1.0 Neut # Lymph # 1.5 [place] # 0.5 Eos # 0.0 Baso # 0.1 Sodium 135 Potassium 2.1 L* Chloride 98 Carbon Dioxide 26 Anion Gap 13 BUN 4 L Creatinine 0.4 L Est GFR ( Amer) > 60 Est GFR (Non-Af Amer) > 60 POC Glucose (mg/dL) Random Glucose 95 Calcium 6.9 L Magnesium 1.4 L Total Bilirubin 2.2 H AST 217 H ALT 34 Alkaline Phosphatase 244 H Total Protein 6.0 L Albumin 2.5 L Globulin 3.5 Albumin/Globulin Ratio 0.7 L Lipase Alcohol, Quantitative Assessment & Plan (1) Alcoholic hepatitis Assessment and Plan: CT shows fatty liver, and the AST is elevated disproportionately, consistent with alcoholic hepatitis. Agree with checking the PT so that the discriminant function can be calculated. Status: Acute (2) Diarrhea Assessment and Plan: Diarrhea is of recent onset, and investigation should be directed at finding possible infections. If stool cultures are negative, will consider colonoscopy. Status: Acute (3) Ascites Assessment and Plan: Ascites is apparently of recent onset. Agree with plans for paracentesis. Status: Acute
[2017-07-18 14:11] LABS: INR 1.5; PROTHROMBIN TIME 16.9 SECONDS (9.7-12.2)
[2017-07-18 14:30] LABS: IRON 110 ug/dL (49-181)
[2017-07-18] MEDS: Ciprofloxacin 400mg/200ml D5W 400 MG/200 ML BAG IVPB SCH (14:39)
[2017-07-18 14:40] LABS: ALB/GLOB RATIO 0.7 (1.0-2.1); ALBUMIN 2.5 g/dL (3.5-5.0); ALT/SGPT 34 U/L (21-72); AST/SGOT 194 U/L (17-59); BLOOD UREA NITROGEN 3 mg/dL (9-20); CALCIUM 7.2 mg/dl (8.6-10.4); GFR AFRICAN-AMERICAN > 60; GFR NON-AFRICAN AMERICAN > 60
[2017-07-18 14:43] LABS: TOTAL IRON BINDING CAPACITY 152 ug/dL (250-450)
[2017-07-18 14:44] LABS: % IRON SATURATION 73 (20-55)
[2017-07-18 15:45] LABS: FOLATE > 20.0 ng/mL
[2017-07-18] MEDS ORDERED: Albumin Human 25% (12.5 gm/50 ml) IV ONE (15:55)
[2017-07-18] MEDS ORDERED: Potassium Chloride 20 mEq/15 ml LIQ UD PO STA (16:16)
[2017-07-18] MEDS: Potassium Chloride 20 mEq/15 ml LIQ UD PO SCH (17:26)
[2017-07-18 19:50] LABS: MAGNESIUM 1.5 mg/dL (1.6-2.3)
[2017-07-19] MEDS ORDERED: Ciprofloxacin 400mg/200ml D5W 400 MG/200 ML BAG IVPB SCH
[2017-07-19] MEDS: Potassium Chloride 20 mEq/15 ml LIQ UD PO SCH ×2 (00:53→05:28)
[2017-07-19] MEDS: metroNIDAZOLE IV 500 mg/100 ml 500 MG/100 ML BAG IVPB SCH ×3 (00:53→16:41)
[2017-07-19] MEDS: Ciprofloxacin 400mg/200ml D5W 400 MG/200 ML BAG IVPB SCH ×2 (02:26→15:05)
[2017-07-19 07:47] LABS: BASO # 0.1 K/uL (0.0-0.2); BASO % 0.7 % (0.0-2.0); EOS % 0.1 % (0.0-4.0); LYMPH # 1.3 K/uL (1.0-4.3); LYMPH % 15.9 % (20.0-40.0); MEAN CELL VOLUME 89.4 fL (80.0-94.0); MEAN CORPUSCULAR HEMOGLOBIN 30.2 pg (27.0-31.0); MEAN CORPUSCULAR HGB CONC 33.7 g/dL (33.0-37.0); MEAN PLATELET VOLUME 8.4 fL (7.2-11.7); MONO # 0.8 K/uL (0.0-0.8); MONO % 9.1 % (0.0-10.0); NEUT # 6.2 K/uL (1.8-7.0); NEUT % 74.2 % (50.0-75.0); NRBC % 0.5 % (0.0-2.0); RBC 2.64 Mil/uL (4.40-5.90); RED CELL DISTRIBUTION WIDTH 22.8 % (11.5-14.5); WHITE BLOOD COUNT 8.4 K/uL (4.8-10.8)
[2017-07-19 08:11] LABS: ALB/GLOB RATIO 0.8 (1.0-2.1); ALBUMIN 2.5 g/dL (3.5-5.0); ALT/SGPT 35 U/L (21-72); AST/SGOT 173 U/L (17-59); BLOOD UREA NITROGEN < 2 mg/dL (9-20); CALCIUM 6.9 mg/dl (8.6-10.4); GFR AFRICAN-AMERICAN > 60; GFR NON-AFRICAN AMERICAN > 60; MAGNESIUM 1.3 mg/dL (1.6-2.3)
--- NOTE | 2017-07-19 08:58 | CP.PCM.PN ---
Subjective - Date & Time of Evaluation Date of Evaluation: 07/19/17 Time of Evaluation: 08:55 - Subjective Subjective: Patient continues to complain of RUQ pain. He denies having nausea or vomiting. Paracentesis is scheduled for today. Objective - Vital Signs/Intake and Output Vital Signs (last 24 hours): Temp Pulse Resp BP Pulse Ox 98.3 F 118 H 20 121/79 95 07/19/17 07:58 07/19/17 07:58 07/19/17 07:58 07/19/17 07:58 07/19/17 07:58 Intake and Output: 07/19/17 07/19/17 06:59 18:59 Intake Total 450 Output Total 700 Balance -250 - Medications Medications: Current Medications Folic Acid 1 mg/ Sodium (Chloride) 100.2 mls @ 60 mls/hr IV DAILY [facility] Last Admin: 07/18/17 10:00 Dose: 60 mls/hr Metronidazole (Flagyl) 500 mg in 100 mls @ 100 mls/hr IVPB Q8H [facility] Last Admin: 07/19/17 08:23 Dose: 100 mls/hr Ciprofloxacin (Cipro 400mg/200ml Dsw) 400 mg in 200 mls @ 133 mls/hr IVPB Q12H [facility] Last Admin: 07/19/17 02:26 Dose: 133 mls/hr Potassium Chloride 20 meq/ (Sodium Chloride) 1,010 mls @ 100 mls/hr IV .Q10H6M [facility] Last Admin: 07/19/17 05:29 Dose: 100 mls/hr Lorazepam (Ativan) 2 mg PO Q4H [facility] Last Admin: 07/19/17 00:53 Dose: 2 mg Pneumococcal Polyvalent Vaccine (Pneumovax 23 Vaccine) 0.5 ml IM .ONCE ONE Stop: 07/20/17 14:01 Thiamine HCl (Vitamin B1 Inj) 100 mg IV DAILY [facility] Last Admin: 07/18/17 10:18 Dose: Not Given - Labs Labs: 07/19/17 07:37 07/19/17 07:37 PT 16.9 SECONDS (9.7-12.2) H 07/18/17 13:52 INR 1.5 07/18/17 13:52 APTT 34 SECONDS (21-34) 07/18/17 13:52 - Constitutional Appears: No Acute Distress - Head Exam Head Exam: ATRAUMATIC, NORMOCEPHALIC - Neck Exam Neck Exam: absent: Lymphadenopathy, Thyromegaly - Respiratory Exam Respiratory Exam: NORMAL BREATHING PATTERN. absent: Rales, Rhonchi, Wheezes - Cardiovascular Exam Cardiovascular Exam: REGULAR RHYTHM, +S1, +S2. absent: Gallop, Rubs, Murmur - GI/Abdominal Exam GI & Abdominal Exam: Soft, Normal Bowel Sounds. absent: Tenderness, Mass, Organomegaly - Rectal Exam Rectal Exam: Deferred - Extremities Exam Extremities Exam: absent: Calf Tenderness, Pedal Edema Assessment and Plan (1) Alcoholic hepatitis Assessment & Plan: Repeat LFTs show AST 173 (217), ALT 35 (34), ALKP 236 (244), TBILI 4.5 (2.2). The Discriminant Function is 27, below the threshold for considering steroid therapy. Status: Acute (2) Diarrhea Assessment & Plan: Stool cultures pending. Status: Acute (3) Ascites Assessment & Plan: Paracentesis is scheduled for today. Status: Acute
--- NOTE | 2017-07-19 10:40 | PCM.SURG1 ---
Surgeon's Initial Post Op Note - Surgeon's Notes Surgeon: Eagle Mendoza MD [employer] Equipment Operator: None Type of Anesthesia: Local Pre-Operative Diagnosis: Ascites Operative Findings: Moderate ascites Post-Operative Diagnosis: Same Operation Performed: US guided paracentesis Specimen/Specimens Removed: 2.1 L straw-colored fluid removed. Sample submitted. Estimated Blood Loss: EBL {In ML}: 0 Date of Surgery/Procedure: 07/19/17 Time of Surgery/Procedure: 10:00
--- NOTE | 2017-07-19 10:44 | CP.PCM.PN ---
<Amanda Whitley - Last Filed: 07/19/17 12:57> Subjective - Date & Time of Evaluation Date of Evaluation: 07/19/17 Time of Evaluation: 10:00 - Subjective Subjective: PGY1- Medicine Note- Dr. Huitron's service Patient seen and examined s/p paracentesis. Patient says he is feeling very tired and weak. Patient admits to nausea, diarrhea, and abdominal pain. Patient denies shortness of breath or chest pain. Objective - Vital Signs/Intake and Output Vital Signs (last 24 hours): Temp Pulse Resp BP Pulse Ox 98.3 F 118 H 20 121/79 95 07/19/17 07:58 07/19/17 07:58 07/19/17 07:58 07/19/17 07:58 07/19/17 07:58 Intake and Output: 07/19/17 07/19/17 06:59 18:59 Intake Total 450 Output Total 700 Balance -250 - Medications Medications: Current Medications Folic Acid 1 mg/ Sodium (Chloride) 100.2 mls @ 60 mls/hr IV DAILY [facility] Last Admin: 07/18/17 10:00 Dose: 60 mls/hr Metronidazole (Flagyl) 500 mg in 100 mls @ 100 mls/hr IVPB Q8H [facility] Last Admin: 07/19/17 08:23 Dose: 100 mls/hr Ciprofloxacin (Cipro 400mg/200ml Dsw) 400 mg in 200 mls @ 133 mls/hr IVPB Q12H [facility] Last Admin: 07/19/17 02:26 Dose: 133 mls/hr Magnesium Sulfate/Dextrose (Magnesium Sulfate 1 Gm/100 Ml D5w) 1 gm in 100 mls @ 100 mls/hr IVPB Q1H [facility] Stop: 07/19/17 12:14 Lorazepam (Ativan) 2 mg PO Q4H [facility]N Last Admin: 07/19/17 00:53 Dose: 2 mg Pneumococcal Polyvalent Vaccine (Pneumovax 23 Vaccine) 0.5 ml IM .ONCE ONE Stop: 07/20/17 14:01 Thiamine HCl (Vitamin B1 Inj) 100 mg IV DAILY [facility] Last Admin: 07/18/17 10:18 Dose: Not Given - Labs Labs: 07/19/17 07:37 07/19/17 07:37 PT 16.9 SECONDS (9.7-12.2) H 07/18/17 13:52 INR 1.5 07/18/17 13:52 APTT 34 SECONDS (21-34) 07/18/17 13:52 - Constitutional Appears: Non-toxic, No Acute Distress - Head Exam Head Exam: ATRAUMATIC, NORMAL INSPECTION, NORMOCEPHALIC - Eye Exam Eye Exam: EOMI, Normal appearance - ENT Exam ENT Exam: Mucous Membranes Moist - Respiratory Exam Respiratory Exam: Clear to Ausculation Bilateral, NORMAL BREATHING PATTERN. absent: Rales, Rhonchi, Wheezes - Cardiovascular Exam Cardiovascular Exam: REGULAR RHYTHM, +S1 - GI/Abdominal Exam GI & Abdominal Exam: Distended, Soft, Tenderness, Normal Bowel Sounds - Extremities Exam Extremities Exam: Normal Inspection. absent: Pedal Edema - Neurological Exam Neurological Exam: Alert, Awake - Psychiatric Exam Psychiatric exam: Normal Affect, Normal Mood - Skin Skin Exam: Dry, Normal Color, Warm Assessment and Plan - Assessment and Plan (Free Text) Assessment: Colitis No leukocytosis, afebrile Consult GIDr South F/U Stool Giardia Ag, F/U Blood Culture, F/U Stool Culture, F/U Stool Ova and Parastie, F/U Stool leukocytes, F/U Clostridium Difficile Imaging: CT abd/pelvis with IV contrast 07/17: Significant bowel wall thickening involving the colon, appearance most consistent with acute colitis, cannot exclude underlying neoplasm. Small to moderate ascites. Fatty infiltration of the liver. Heterogeneous appearance to hepatic parenchyma. Some of appearance may be due to transient hepatic attenuation differences, concern for underlying lesion. Meds: Cipro 400 IV daily Flagyl 500 IV Q8 Alcohol abuse Elevated serum alcohol on admission 292 [facility] protocol Seizure and aspiration precautions Lipase NORMAL 07/19/17: AST: 173, ALT: 35, Alk Phos: 236 T bili: 4.5 ammonia 32 on 07/18/17 Ativan 2mg PO Q4h PRN Thiamine 100 mg daily Folic acid 1 mg daily Ascites Consult Dr Brannon WALKER Likely 2/[address] to [address] liver disease CT abd/pelvis shows small to moderate ascites Paracentesis done today 07/19/17 with 2.1 L straw colored fluid removed. * f/u fluid culture, albumin, total protein, cytology, amylase, triglycerides * Fluid WBC: 147, RBC: 216, neut: 41, lymph: 43, monocyte/macrophage: 15 Hypokalemia, resolved K on 07/19: 3.7 NS with KCl stopped Potassium 1.8 on admission K riders 20meq x3 given 07/17/17-07/18/17 + Kdur 40 mEq PO Q4H Hypomagnesemia 1.3mg , 2g given on 07/19/17 monitor Anemia H/H: 03/09.6, monitor- will transfuse if continues to decrease stool occult blood negative Prophylactic Measure SCDs NS @75 cc/hr CLD, will upgrade further if tolerating <Ruth Huitron - Last Filed: 07/19/17 15:01> Objective - Vital Signs/Intake and Output Vital Signs (last 24 hours): Temp Pulse Resp BP Pulse Ox 98.3 F 118 H 20 121/79 95 07/19/17 07:58 07/19/17 07:58 07/19/17 07:58 07/19/17 07:58 07/19/17 07:58 Intake and Output: 07/19/17 07/19/17 06:59 18:59 Intake Total 450 Output Total 700 Balance -250 - Medications Medications: Current Medications Folic Acid 1 mg/ Sodium (Chloride) 100.2 mls @ 60 mls/hr IV DAILY [facility] Last Admin: 07/19/17 13:23 Dose: 60 mls/hr Metronidazole (Flagyl) 500 mg in 100 mls @ 100 mls/hr IVPB Q8H [facility] Last Admin: 07/19/17 08:23 Dose: 100 mls/hr Ciprofloxacin (Cipro 400mg/200ml Dsw) 400 mg in 200 mls @ 133 mls/hr IVPB Q12H [facility] Last Admin: 07/19/17 02:26 Dose: 133 mls/hr Sodium Chloride (Sodium Chloride 0.9%) 1,000 mls @ 75 mls/hr IV .[id number] [facility] Last Admin: 07/19/17 13:25 Dose: 75 mls/hr Lorazepam (Ativan) 2 mg PO Q4H PRN Last Admin: 07/19/17 00:53 Dose: 2 mg Pneumococcal Polyvalent Vaccine (Pneumovax 23 Vaccine) 0.5 ml IM .ONCE ONE Stop: 07/20/17 14:01 Thiamine HCl (Vitamin B1 Inj) 100 mg IV DAILY [facility] Last Admin: 07/19/17 10:52 Dose: 100 mg - Labs Labs: 07/19/17 07:37 07/19/17 07:37 PT 16.9 SECONDS (9.7-12.2) H 07/18/17 13:52 INR 1.5 07/18/17 13:52 APTT 34 SECONDS (21-34) 07/18/17 13:52 Attending/Attestation - Attestation I have personally seen and examined this patient.: Yes I have fully participated in the care of the patient.: Yes I have reviewed all pertinent clinical information, including history, physical exam and plan: Yes Notes (Text): Seen and examined He is more alert and talkative today Mild abdominal pain,no fever s/p Paracentesis continue antibiotics for his colitis, amonia level noted. PT evaluation monitor for alcohol withdrawal Anemia likely chronic disease.His stool OB negative need out pt colonoscopy to rule out colon malignancy
--- NOTE | 2017-07-19 10:47 | US ---
PROCEDURE: ULTRASOUND-GUIDED PARACENTESIS CLINICAL HISTORY: 51-year-old male with alcoholic hepatitis and ascites is referred to Interventional Radiology for ultrasound-guided paracentesis. COMPARISON: Correlations made to CT scan of the abdomen and pelvis dated 07/17/2017. PROCEDURE: 1. Ultrasound-guided paracentesis. PRE-PROCEDURE FINDINGS: 1. Moderate volume ascites. POST-PROCEDURE FINDINGS: 1. No evidence of post-procedural complication. INTERVENTIONAL RADIOLOGIST: Eagle Mendoza M.D. (the attending was present for the entire procedure) ANESTHESIA: None. MEDICATION: Lidocaine 1% for local subcutaneous analgesia. COMPLICATIONS: None. PROCEDURE DESCRIPTION AND FINDINGS: The risks, benefits, alternatives and possible complications of the procedure were fully discussed; all questions were answered and informed consent was obtained. The patient was brought into the interventional suite and a pre-procedure 'time-out' was performed. The patient was placed on the fluoroscopy table in the supine position. Preliminary ultrasound images of the right lower quadrant demonstrate a moderate amount of ascites. The right lower quadrant was prepped and draped in the usual sterile fashion. Maximum sterile barrier precautions were maintained throughout the entire procedure. Following subcutaneous infiltration of lidocaine 1% for local analgesia, under real-time ultrasound guidance, a 5 [place] centesis catheter was advanced into the right lower quadrant with real-time visualization of needle entry. The ultrasound images were permanently recorded and submitted to the PACS. The inner stylet was removed and the catheter was attached to gentle vacuum suction. A total of 2.1 liters of straw-colored fluid were aspirated. A sample was submitted to the laboratory for analysis. The drainage catheter was then removed. A sterile adhesive bandage was placed over the puncture site. The patient tolerated the procedure well without immediate post-procedure complications and was transferred back to the floor in stable condition. IMPRESSION: SUCCESSFUL ULTRASOUND-GUIDED DIAGNOSTIC AND THERAPEUTIC PARACENTESIS.
[2017-07-19] MEDS: Thiamine 100 mg/ml Inj IV SCH (10:52)
[2017-07-19] MEDS: Magnesium Sulfate 1 gm in D5W 1 GM/100 ML BAG IVPB SCH ×2 (10:53→12:16)
[2017-07-19 11:34] LABS: BODY FLUID TYPE PERITONEAL
[2017-07-19 12:15] LABS: BODY FLUID MONO/MACROPHAGE 15 % (0-0)
[2017-07-19 12:16] LABS: BF GROSS APPEARANCE SL CLOUDY (CLEAR)
[2017-07-19 13:08] LABS: C DIFF TOXIN A B NEGATIVE (NEGATIVE)
--- NOTE | 2017-07-19 13:20 | CARD ---
APPROVED REPORT EKG Measurement Heart [id number] <Conclusion> Normal sinus rhythm ST & T wave abnormality, consider inferior ischemia Abnormal ECG
[2017-07-19] MEDS: Sodium Chloride 0.9% 1,000 ML IV SCH (13:25)
[2017-07-19 15:13] LABS: FECAL LEUKOCYTES NEGATIVE (NEGATIVE)
[2017-07-20] MEDS: metroNIDAZOLE IV 500 mg/100 ml 500 MG/100 ML BAG IVPB SCH ×3 (00:23→16:28)
[2017-07-20] MEDS: Ciprofloxacin 400mg/200ml D5W 400 MG/200 ML BAG IVPB SCH ×2 (01:24→14:02)
[2017-07-20 07:49] LABS: BASO # 0.1 K/uL (0.0-0.2); EOS % 0.4 % (0.0-4.0); HEMOGLOBIN 7.9 g/dL (12.0-18.0); LYMPH # 1.6 K/uL (1.0-4.3); LYMPH % 18.3 % (20.0-40.0); MEAN CELL VOLUME 89.1 fL (80.0-94.0); MEAN CORPUSCULAR HEMOGLOBIN 29.7 pg (27.0-31.0); MEAN CORPUSCULAR HGB CONC 33.4 g/dL (33.0-37.0); MEAN PLATELET VOLUME 8.4 fL (7.2-11.7); MONO # 0.5 K/uL (0.0-0.8); MONO % 5.3 % (0.0-10.0); NEUT # 6.7 K/uL (1.8-7.0); NRBC % 0.3 % (0.0-2.0); RBC 2.64 Mil/uL (4.40-5.90)
[2017-07-20 08:20] LABS: ALB/GLOB RATIO 0.7 (1.0-2.1); ALBUMIN 2.3 g/dL (3.5-5.0); ALT/SGPT 32 U/L (21-72); AST/SGOT 127 U/L (17-59); BLOOD UREA NITROGEN < 2 mg/dL (9-20); CALCIUM 6.7 mg/dl (8.6-10.4); GFR AFRICAN-AMERICAN > 60; GFR NON-AFRICAN AMERICAN > 60; MAGNESIUM 1.2 mg/dL (1.6-2.3)
[2017-07-20] MEDS ORDERED: Potassium Chloride 20 mEq ER Tab PO ONE ×2 (08:54→13:00)
--- NOTE | 2017-07-20 09:48 | CP.PCM.PN ---
<Amanda Whitley - Last Filed: 07/20/17 14:56> Subjective - Date & Time of Evaluation Date of Evaluation: 07/20/17 Time of Evaluation: 07:00 - Subjective Subjective: PGY1- Medicine Note- Dr. Huitron's Service Patient seen and examined at bedside and in no acute distress. Patient complains of abdominal pain, about 6 episodes of diarrhea and trouble falling and staying asleep. He also feels some pins and needles on his left foot. Patient denies chest pain, shortness of breath, nausea, or vomiting. Objective - Vital Signs/Intake and Output Vital Signs (last 24 hours): Temp Pulse Resp BP Pulse Ox 98.5 F 109 H 20 121/76 95 07/20/17 08:13 07/20/17 08:13 07/20/17 08:13 07/20/17 08:13 07/20/17 08:13 Intake and Output: 07/20/17 07/20/17 06:59 18:59 Intake Total 900 Output Total 200 Balance 700 - Medications Medications: Current Medications Folic Acid 1 mg/ Sodium (Chloride) 100.2 mls @ 60 mls/hr IV DAILY [facility] Last Admin: 07/19/17 13:23 Dose: 60 mls/hr Metronidazole (Flagyl) 500 mg in 100 mls @ 100 mls/hr IVPB Q8H [facility] Last Admin: 07/20/17 08:34 Dose: 100 mls/hr Ciprofloxacin (Cipro 400mg/200ml Dsw) 400 mg in 200 mls @ 133 mls/hr IVPB Q12H [facility] Last Admin: 07/20/17 01:24 Dose: 133 mls/hr Sodium Chloride (Sodium Chloride 0.9%) 1,000 mls @ 75 mls/hr IV .[id number] [facility] Last Admin: 07/19/17 13:25 Dose: 75 mls/hr Potassium Chloride (Potassium Chloride 10 Meq/100 Ml) 10 meq in 100 mls @ 100 mls/hr IVPB ONCE ONE Stop: 07/20/17 09:53 Lorazepam (Ativan) 2 mg PO Q4H PRN Last Admin: 07/19/17 00:53 Dose: 2 mg Pneumococcal Polyvalent Vaccine (Pneumovax 23 Vaccine) 0.5 ml IM .ONCE ONE Stop: 07/20/17 14:01 Potassium Chloride (K-Dur 20 Meq Er Tab) 40 meq PO ONCE ONE Stop: 07/20/17 13:01 Thiamine HCl (Vitamin B1 Inj) 100 mg IV DAILY [facility] Last Admin: 07/19/17 10:52 Dose: 100 mg - Labs Labs: 07/20/17 07:40 07/20/17 07:40 PT 16.9 SECONDS (9.7-12.2) H 07/18/17 13:52 INR 1.5 07/18/17 13:52 APTT 34 SECONDS (21-34) 07/18/17 13:52 - Constitutional Appears: Non-toxic, No Acute Distress, Chronically Ill - Head Exam Head Exam: ATRAUMATIC, NORMAL INSPECTION, NORMOCEPHALIC - Eye Exam Eye Exam: EOMI, Normal appearance - ENT Exam ENT Exam: Mucous Membranes Moist - Respiratory Exam Respiratory Exam: Clear to Ausculation Bilateral, NORMAL BREATHING PATTERN - Cardiovascular Exam Cardiovascular Exam: REGULAR RHYTHM, +S1, +S2 - GI/Abdominal Exam GI & Abdominal Exam: Distended, Soft, Normal Bowel Sounds - Extremities Exam Extremities Exam: Normal Inspection. absent: Pedal Edema - Neurological Exam Neurological Exam: Alert, Awake - Psychiatric Exam Psychiatric exam: Normal Affect, Normal Mood - Skin Skin Exam: Intact, Normal Color, Warm Assessment and Plan - Assessment and Plan (Free Text) Assessment: Colitis No leukocytosis, afebrile Consult Dr Brannon WALKER stool ova and parasite negative, stool culture negative, blood culture negative Imaging: CT abd/pelvis with IV contrast 07/17: Significant bowel wall thickening involving the colon, appearance most consistent with acute colitis, cannot exclude underlying neoplasm. Small to moderate ascites. Fatty infiltration of the liver. Heterogeneous appearance to hepatic parenchyma. Some of appearance may be due to transient hepatic attenuation differences, concern for underlying lesion. Meds: Cipro 400 IV daily Flagyl 500 IV Q8 Alcohol abuse Elevated serum alcohol on admission 292 CICT protocol Seizure and aspiration precautions Lipase NORMAL 07/19/17: AST: 173, ALT: 35, Alk Phos: 236 T bili: 4.5 ammonia 32 on 07/18/17 Ativan 2mg PO Q4h PRN Thiamine 100 mg daily Folic acid 1 mg daily Ascites Consult Dr Brannon WALKER Likely 2/2 to [address] liver disease CT abd/pelvis shows small to moderate ascites Paracentesis done today 07/19/17 with 2.1 L straw colored fluid removed. * peritoneal fluid no growth * Fluid WBC: 147, RBC: 216, neut: 41, lymph: 43, monocyte/macrophage: 15 Hypokalemia K on 07/20: 2.7- 40kdur given x2 and 10KCl IV K on 07/19: 3.7 NS with KCl stopped Potassium 1.8 on admission K riders 20meq x3 given 07/17/17-07/18/17 + Kdur 40 mEq PO Q4H Hypomagnesemia 1.2mg, 2g given on 07/20/17 1.3mg , 2g given on 07/19/17 monitor Anemia HgB decreased to 7.9 Heme/onc consulted, Dr. Tran help appreciated transfuse 1 u PRBC as per Dr. Tran stool occult blood negative Prophylactic Measure SCDs NS @75 cc/hr CLD, will upgrade further if tolerating <Ruth Huitron - Last Filed: 08/24/17 08:15> Objective - Vital Signs/Intake and Output Vital Signs (last 24 hours): Temp Pulse Resp BP Pulse Ox 98.2 F 97 H 20 103/71 98 08/23/17 23:50 08/24/17 00:00 08/23/17 23:50 08/23/17 23:50 08/23/17 23:50 Intake and Output: 08/24/17 08/24/17 06:59 18:59 Output Total 750 Balance -750 - Medications Medications: Current Medications Albuterol/Ipratropium (Duoneb 3 Mg/0.5 Mg (3 Ml) Ud) 3 ml INH RBID [facility] Last Admin: 08/23/17 20:50 Dose: 3 ml Cholestyramine Resin (Questran) 4 gm PO TIDPC [facility] Last Admin: 08/23/17 18:44 Dose: 4 gm Folic Acid (Folic Acid) 1 mg PO DAILY [facility] Last Admin: 08/23/17 10:00 Dose: 1 mg Lactulose (Enulose) 10 gm PO BID [facility] Last Admin: 08/23/17 18:43 Dose: Not Given Pantoprazole Sodium (Protonix Ec Tab) 40 mg PO DAILY [facility] Last Admin: 08/23/17 09:59 Dose: 40 mg Petrolatum (Desitin Original) 1 gm TOP TID [facility] Last Admin: 02/06/18 21:20 Dose: 1 applic Rifaximin (Xifaxan) 550 mg PO BID [facility] Last Admin: 08/23/17 18:44 Dose: 550 mg Sodium Bicarbonate (Sodium Bicarbonate Tab) 1,300 mg PO TID [facility] Last Admin: 08/23/17 18:44 Dose: 1,300 mg Sodium Chloride (Sodium Chloride Tab) 1 gm PO BID [facility] Last Admin: 08/23/17 18:44 Dose: 1 gm Spironolactone (Aldactone) 50 mg PO BID [facility] Last Admin: 08/23/17 18:42 Dose: 50 mg Thiamine HCl (Vitamin B1 Tab) 100 mg PO BID [facility] Last Admin: 08/23/17 18:44 Dose: 100 mg - Labs Labs: 08/22/17 11:37 08/22/17 11:37 PT 17.9 SECONDS (9.7-12.2) H 08/16/17 07:11 INR 1.6 08/16/17 07:11 APTT 34 SECONDS (21-34) 07/18/17 13:52 Attending/Attestation - Attestation I have personally seen and examined this patient.: Yes I have fully participated in the care of the patient.: Yes I have reviewed all pertinent clinical information, including history, physical exam and plan: Yes Notes (Text): Seen and examined I agree with the documentation
[2017-07-20] MEDS: Thiamine 100 mg/ml Inj IV SCH (10:07)
--- NOTE | 2017-07-20 11:26 | CP.PCM.CON ---
History of Present Illness - History of Present Illness History of Present Illness: 51 year old male with a history of alcohol abuse, admitted with abdominal pain, with anemia. The patient reports to increasing sharp abdominal pain associated with diarrhea. He denies fevers and chills. He has mild nausea but no vomiting. He denies abnormal bleeding and bruising. Hgb has nadired at 7.9. CT scan shows bowel wall thickening. Past medical history: alcohol abuse Past surgical history: None Family history: Denies hematologic and oncologic problems Social history: Drinks 4-5 "small" bottles of liquor, denies illicit drug use. Allergies: NKA Review of systems: All remaining review of systems including HEENT, cardiovascular, respiratory, gastrointestinal, genitourinary, musculoskeletal, dermatologic, neurologic, and psychiatric are negative unless mentioned in the HPI. Past Patient History - Infectious Disease Hx of Infectious Diseases: None - Past Medical History & Family History Past Medical History?: Yes - Past Social History Smoking Status: Never Smoked - CARDIAC Hx Hypertension: Yes - PULMONARY Hx Respiratory Disorders: No - NEUROLOGICAL Hx Neurological Disorder: No - HEENT Hx HEENT Problems: No - RENAL Hx Chronic Kidney Disease: No - ENDOCRINE/METABOLIC Hx Endocrine Disorders: No - HEMATOLOGICAL/ONCOLOGICAL Hx Blood Disorders: No - INTEGUMENTARY Hx Dermatological Problems: No - MUSCULOSKELETAL/RHEUMATOLOGICAL Hx Musculoskeletal Disorders: No Hx Falls: No - GASTROINTESTINAL Hx Gastrointestinal Disorders: Yes Hx Liver Failure: Yes Other/Comment: LIVER CIRRHOSIS AND ASCITES. - GENITOURINARY/GYNECOLOGICAL Hx Genitourinary Disorders: No - PSYCHIATRIC Hx Substance Use: No - SURGICAL HISTORY Hx Surgeries: No - ANESTHESIA Hx Anesthesia: No Meds Allergies/Adverse Reactions: Allergies Allergy/AdvReac Type Severity Reaction Status Date / Time No Known Allergies Allergy Verified 06/22/17 20:40 - Medications Medications: Current Medications Folic Acid 1 mg/ Sodium (Chloride) 100.2 mls @ 60 mls/hr IV DAILY [facility] Last Admin: 07/20/17 11:00 Dose: 60 mls/hr Metronidazole (Flagyl) 500 mg in 100 mls @ 100 mls/hr IVPB Q8H [facility] Last Admin: 07/20/17 08:34 Dose: 100 mls/hr Ciprofloxacin (Cipro 400mg/200ml Dsw) 400 mg in 200 mls @ 133 mls/hr IVPB Q12H [facility] Last Admin: 07/20/17 01:24 Dose: 133 mls/hr Sodium Chloride (Sodium Chloride 0.9%) 1,000 mls @ 75 mls/hr IV .[id number] [facility] Last Admin: 07/19/17 13:25 Dose: 75 mls/hr Magnesium Sulfate/Dextrose (Magnesium Sulfate 1 Gm/100 Ml D5w) 1 gm in 100 mls @ 300 mls/hr IVPB Q30M [facility] Stop: 07/20/17 12:04 Lorazepam (Ativan) 2 mg PO Q4H PRN Last Admin: 07/19/17 00:53 Dose: 2 mg Pneumococcal Polyvalent Vaccine (Pneumovax 23 Vaccine) 0.5 ml IM .ONCE ONE Stop: 07/20/17 14:01 Potassium Chloride (K-Dur 20 Meq Er Tab) 40 meq PO ONCE ONE Stop: 07/20/17 13:01 Thiamine HCl (Vitamin B1 Inj) 100 mg IV DAILY [facility] Last Admin: 07/20/17 10:07 Dose: 100 mg Physical Exam - Head Exam Head Exam: ATRAUMATIC - Eye Exam Eye Exam: Normal appearance - ENT Exam ENT Exam: Mucous Membranes Dry - Respiratory Exam Respiratory Exam: NORMAL BREATHING PATTERN - Cardiovascular Exam Cardiovascular Exam: +S1, +S2 - GI/Abdominal Exam GI & Abdominal Exam: Normal Bowel Sounds - Extremities Exam Extremities exam: Positive for: normal inspection Results - Vital Signs Recent Vital Signs: Last Vital Signs Temp 98.5 F 07/20/17 08:13 Pulse 109 H 07/20/17 08:13 Resp 20 07/20/17 08:13 BP 121/76 07/20/17 08:13 Pulse Ox 95 07/20/17 08:13 - Labs Result Diagrams: 07/20/17 07:40 07/20/17 16:47 Labs: Laboratory Results - last 24 hr 07/18/17 07/19/17 07/19/17 12:04 11:22 11:29 WBC RBC Hgb Hct MCV MCH MCHC RDW Plt Count MPV Neut % (Auto) Lymph % (Auto) Cotton % (Auto) Eos % (Auto) Baso % (Auto) Neut # Lymph # Cotton # Eos # Baso # Sodium Potassium Chloride Carbon Dioxide Anion Gap BUN Creatinine Est GFR ( Amer) Est GFR (Non-Af Amer) Random Glucose Calcium Phosphorus Magnesium Total Bilirubin AST ALT Alkaline Phosphatase Ammonia Total Protein Albumin Globulin Albumin/Globulin Ratio Fluid Source Peritoneal Fluid Appearance Sl cloudy Fluid WBC 147.0 Fluid RBC 216.0 H Fluid Tot Cell Count TEST NOT PERFORMED Fluid Neutrophils 41.0 H Fluid Lymphocytes 43.0 H Fld Monocyte/Macrophag 15 H Fluid Comment Stool Occult Blood Negative Stool Leukocytes, Qual Negative C. difficile Ag & Toxin Negative 07/20/17 07/20/17 07/20/17 07:40 07:40 07:40 WBC 9.0 RBC 2.64 L Hgb 7.9 L Hct 23.5 L MCV 89.1 MCH 29.7 MCHC 33.4 RDW 23.0 H Plt Count 158 MPV 8.4 Neut % (Auto) 75.0 Lymph % (Auto) 18.3 L Cotton % (Auto) 5.3 Eos % (Auto) 0.4 Baso % (Auto) 1.0 Neut # 6.7 Lymph # 1.6 Cotton # 0.5 Eos # 0.0 Baso # 0.1 Sodium 134 Potassium 2.7 L Chloride 100 Carbon Dioxide 27 Anion Gap 9 L BUN < 2 L Creatinine 0.5 L Est GFR ( Amer) > 60 Est GFR (Non-Af Amer) > 60 Random Glucose 104 Calcium 6.7 L Phosphorus 1.9 L Magnesium 1.2 L Total Bilirubin 6.1 H AST 127 H D ALT 32 Alkaline Phosphatase 212 H Ammonia 20 D Total Protein 5.7 L Albumin 2.3 L Globulin 3.4 Albumin/Globulin Ratio 0.7 L Fluid Source Fluid Appearance Fluid WBC Fluid RBC Fluid Tot Cell Count Fluid Neutrophils Fluid Lymphocytes Fld Monocyte/Macrophag Fluid Comment Stool Occult Blood Stool Leukocytes, Qual C. difficile Ag & Toxin Assessment & Plan (1) Anemia Assessment and Plan: anemia consistent with hypoproliferative erythroid response anemia of chronic disease, bone marrow suppression from ETOH fractionate rising tbili transfusion support PRN Status: Acute (2) Colonic thickening Assessment and Plan: by CT scan outpatient surveillance colonoscopy Thank you for this interesting consult. Status: Acute
[2017-07-20] MEDS: Magnesium Sulfate 1 gm in D5W 1 GM/100 ML BAG IVPB SCH ×2 (11:45→12:05)
--- NOTE | 2017-07-20 13:55 | PCM.PSYCH ---
Initial Psychiatric Evaluation - Initial Psychiatric Evaluation Type of Admission: Voluntary Chief Complaint (in patient's own words): Alcohol Detox History of Present Illness and Precipitating Events: Consultation requested by medical team for alcohol abuse. Patient is a 51 year old American male with an unknown past medical history, who is with 2 children (in their 20s), unemployed, and homeless. The patient stays at [facility]. 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 Patient reports he drinks 2-3 mini bottles of Bacardi daily for 15-16 years. He drinks every day and states he has never been sober. Patient's last drink was right before coming to the hospital; he does not remember how much or what he drank. Patient is a poor historian and states he does not remember a lot of his history. He states he thinks he has been to rehab once, but does not remember why, when, or where. Patient denies ever having DT's, hallucinations, or tremors. Patient denies using drugs or smoking cigarettes, however, admits to using chewing tobacco since he was 18 years old. Patient denies having a past medical history or past psychiatric history. Patient says his father used tobacco, but denies any other family history. Patient is oriented to person, place, and time. PMHX: denies FamHx: Father- tobacco; otherwise denies Current Medications: Active Medications Generic Name Dose Route Start Last Admin Trade Name Freq PRN Reason Stop Dose Admin Folic Acid 1 mg/ Sodium 100.2 mls @ 60 mls/hr 07/18/17 10:00 07/20/17 11:00 Chloride IV 60 mls/hr DAILY [facility] Administration Metronidazole 500 mg in 100 mls @ 100 mls/hr 07/18/17 08:00 07/20/17 08:34 Flagyl IVPB 100 mls/hr Q8H [facility] Administration Ciprofloxacin 400 mg in 200 mls @ 133 mls/hr 07/18/17 14:00 07/20/17 01:24 Cipro 400mg/200ml Dsw IVPB 133 mls/hr Q12H [facility] Administration Sodium Chloride 1,000 mls @ 75 mls/hr 07/19/17 13:00 07/19/17 13:25 Sodium Chloride 0.9% IV 75 mls/hr .[id number] [facility] Administration Lorazepam 2 mg 07/18/17 11:59 07/19/17 00:53 Ativan PO 2 mg Q4H PRN Administration Nicotine 1 patch 07/21/17 10:00 Nicoderm Cq TD DAILY [facility] Pneumococcal Polyvalent Vaccine 0.5 ml 07/20/17 14:00 Pneumovax 23 Vaccine IM 07/20/17 14:01 .ONCE ONE Thiamine HCl 100 mg 07/18/17 10:00 07/20/17 10:07 Vitamin B1 Inj IV 100 mg DAILY [facility] Administration Past Psychiatric History - Past Psychiatric History Pertinent Medical Hx (Current Medical&Sleep Prob, Allergies): Allergies Allergy/AdvReac Type Severity Reaction Status Date / Time No Known Allergies Allergy Verified 06/22/17 20:40 No Known Home Med 11/18/15 Review of Systems - Neurological Neurological: Memory Loss, Tremor - Psychiatric Psychiatric: Memory Loss. absent: Anxiety, Auditory Hallucinations, Depression , Hallucinations, Visual Hallucinations, Tactile Hallucinations Mental Status Examination - Personal Presentation Personal Presentation: Looks older than stated age - Affect Affect: Constricted - Motor Activity Motor Activity: Calm - Reliability in Providing Information Reliability in Providing Information: Other (Poor, due to memory loss and poor historian) - Speech Speech: Organized - Mood Mood: Neutral - Formal Thought Process Formal Thought Process: No Impairment - Obsessions/Compulsions Obsessions: No Compulsions: No - Cognitive Functions Orientation: Person, Place, Situation, Time Sensorium: Alert Attention/Concentration: Attentive Estimate of Intelligence: Below average Judgement: Imparied, as evidence by: Poor judgement Memory: Remote impaired as evidenced by: Inability to recall historical events - Risk Risk: Withdrawal, Diminished functioning - Limitations Limitations: Decreased memory, recent, Other (homeless, no family support) DSM 5 DX - DSM 5 DSM 5 Diagnosis: Alcohol Use Disorder - Recommended/Plan of Treatment Treatment Recommendations and Plan of Treatment: Alcohol detox Elevated serum alcohol on admission: 292 CIWA protocol Seizure and aspiration precaution Ativan taper - 2mg Q6 on 07/20 - 2mg Q8 on 07/21, - 2mg Q12 on 07/22, - 2mg Q24 on 07/23 Ativan 1mg Q4 PRN Continue Folic acid, Thiamine Refer to outpatient follow up, AA meetings Smoking cessation with Nicotine patch 34 min - Smoking Cessation Smoking Cessation Initiated: Yes
[2017-07-20] MEDS ORDERED: Pneumococcal 23-Valent Vaccine IM ONE (14:00)
[2017-07-20] MEDS ORDERED: Magnesium Citrate Oral SOL (300 ml) PO ONE (16:38)
--- NOTE | 2017-07-20 16:44 | CP.PCM.PN ---
Subjective - Date & Time of Evaluation Date of Evaluation: 07/20/17 Time of Evaluation: 16:41 - Subjective Subjective: Patient continues to complain of abdominal pain. Nurses report persistent diarrhea. Objective - Vital Signs/Intake and Output Vital Signs (last 24 hours): Temp Pulse Resp BP Pulse Ox 98.6 F 106 H 20 100/69 98 07/20/17 15:40 07/20/17 15:40 07/20/17 15:40 07/20/17 15:40 07/20/17 15:40 Intake and Output: 07/20/17 07/20/17 06:59 18:59 Intake Total 900 Output Total 200 Balance 700 - Medications Medications: Current Medications Folic Acid 1 mg/ Sodium (Chloride) 100.2 mls @ 60 mls/hr IV DAILY [facility] Last Admin: 07/20/17 11:00 Dose: 60 mls/hr Metronidazole (Flagyl) 500 mg in 100 mls @ 100 mls/hr IVPB Q8H [facility] Last Admin: 07/20/17 16:28 Dose: 100 mls/hr Ciprofloxacin (Cipro 400mg/200ml Dsw) 400 mg in 200 mls @ 133 mls/hr IVPB Q12H [facility] Last Admin: 07/20/17 14:02 Dose: 133 mls/hr Sodium Chloride (Sodium Chloride 0.9%) 1,000 mls @ 75 mls/hr IV .[id number] [facility] Last Admin: 07/19/17 13:25 Dose: 75 mls/hr Lorazepam (Ativan) 1 mg PO Q4H PRN PRN Reason: Anxiety Lorazepam (Ativan) 2 mg IVP Q6H [facility] Stop: 07/21/17 00:01 Last Admin: 07/20/17 16:29 Dose: 2 mg Lorazepam (Ativan) 2 mg IVP Q8H [facility] Stop: 07/22/17 00:01 Lorazepam (Ativan) 2 mg IVP Q12H [facility] Stop: 07/23/17 00:01 Lorazepam (Ativan) 2 mg IVP Q24H [facility] Stop: 07/24/17 00:01 Magnesium Citrate (Citrate Of Mag) 300 ml PO ONCE ONE Stop: 07/20/17 16:39 Nicotine (Nicoderm Cq) 1 patch TD DAILY [facility] Thiamine HCl (Vitamin B1 Inj) 100 mg IV DAILY [facility] Last Admin: 07/20/17 10:07 Dose: 100 mg Trazodone HCl (Desyrel) 50 mg PO HS [facility] - Labs Labs: 07/20/17 07:40 07/20/17 07:40 PT 16.9 SECONDS (9.7-12.2) H 07/18/17 13:52 INR 1.5 07/18/17 13:52 APTT 34 SECONDS (21-34) 07/18/17 13:52 - Constitutional Appears: No Acute Distress - Head Exam Head Exam: ATRAUMATIC, NORMOCEPHALIC - Neck Exam Neck Exam: absent: Lymphadenopathy, Thyromegaly - Respiratory Exam Respiratory Exam: NORMAL BREATHING PATTERN. absent: Rales, Rhonchi, Wheezes - Cardiovascular Exam Cardiovascular Exam: REGULAR RHYTHM, +S1, +S2. absent: Gallop, Rubs, Murmur - GI/Abdominal Exam GI & Abdominal Exam: Distended, Soft, Tenderness, Normal Bowel Sounds. absent: Organomegaly - Rectal Exam Rectal Exam: Deferred - Extremities Exam Extremities Exam: absent: Calf Tenderness, Pedal Edema Assessment and Plan (1) Alcoholic hepatitis Assessment & Plan: Transaminases are improving, AST 127, ALT 32, but bilirubin continues to rise. Will repeat PT. Status: Acute (2) Diarrhea Assessment & Plan: Diarrhea continues, with negative leukocytes, occult blood and leukocytes. Will schedule colonoscopy for tomorrow. Status: Acute (3) Ascites Assessment & Plan: Paracentesis shows 147 WBC, 41% polys, not consistent with SBP. Chemistry on the fluid is piending. Status: Acute
[2017-07-20] MEDS: Sodium Chloride 0.9% 1,000 ML IV SCH (16:48)
[2017-07-20 17:12] LABS: BLOOD UREA NITROGEN < 2 mg/dL (9-20); CALCIUM 6.6 mg/dl (8.6-10.4); GFR AFRICAN-AMERICAN > 60; GFR NON-AFRICAN AMERICAN > 60
[2017-07-20] MEDS ORDERED: Potassium Chloride 20 mEq ER Tab PO STA (17:22)
[2017-07-20 19:33] LABS: SQUAMOUS EPITHIAL 1 /hpf (0-5); URINE BILIRUBIN 1+ (NEGATIVE); URINE BLOOD 3+ (NEGATIVE); URINE CLARITY Clear (Clear); URINE COLOR Amber (YELLOW); URINE GLUCOSE (UA) NORMAL (Normal); URINE LEUKOCYTE ESTERASE TRACE Leu/uL (Negative); URINE NITRATE NEGATIVE (NEGATIVE); URINE PROTEIN 1+ mg/dL (NEGATIVE)
[2017-07-21] MEDS: metroNIDAZOLE IV 500 mg/100 ml 500 MG/100 ML BAG IVPB SCH ×3 (00:29→15:57)
[2017-07-21] MEDS: Ciprofloxacin 400mg/200ml D5W 400 MG/200 ML BAG IVPB SCH ×2 (01:40→13:12)
[2017-07-21] MEDS: Sodium Chloride 0.9% 1,000 ML IV SCH ×3 (06:28→22:32)
[2017-07-21 07:07] LABS: BASO % 0.5 % (0.0-2.0); EOS % 0.3 % (0.0-4.0); LYMPH # 1.3 K/uL (1.0-4.3); LYMPH % 14.3 % (20.0-40.0); MEAN CELL VOLUME 88.3 fL (80.0-94.0); MEAN CORPUSCULAR HEMOGLOBIN 29.9 pg (27.0-31.0); MEAN CORPUSCULAR HGB CONC 33.9 g/dL (33.0-37.0); MEAN PLATELET VOLUME 8.6 fL (7.2-11.7); MONO # 0.4 K/uL (0.0-0.8); MONO % 5.1 % (0.0-10.0); NEUT % 79.8 % (50.0-75.0); NRBC % 0.2 % (0.0-2.0); RBC 3.02 Mil/uL (4.40-5.90); RED CELL DISTRIBUTION WIDTH 21.4 % (11.5-14.5); WHITE BLOOD COUNT 8.8 K/uL (4.8-10.8)
[2017-07-21 07:31] LABS: ALB/GLOB RATIO 0.7 (1.0-2.1); ALBUMIN 2.6 g/dL (3.5-5.0); ALT/SGPT 36 U/L (21-72); AST/SGOT 116 U/L (17-59); BILIRUBIN,DIRECT 3.7 mg/dL (0.0-0.4); BLOOD UREA NITROGEN < 2 mg/dL (9-20); CALCIUM 7.3 mg/dl (8.6-10.4); GFR AFRICAN-AMERICAN > 60; GFR NON-AFRICAN AMERICAN > 60; MAGNESIUM 1.7 mg/dL (1.6-2.3)
[2017-07-21] MEDS ORDERED: Potassium Phosphate 15 MMOLE in Sodium Chloride 0.9% 250 ML IVPB ONE (10:00)
[2017-07-21] MEDS: Thiamine 100 mg/ml Inj IV SCH (11:36)
[2017-07-21 12:20] LABS: INR 2.1
--- NOTE | 2017-07-21 13:11 | CP.PCM.PN ---
Subjective - Date & Time of Evaluation Date of Evaluation: 07/21/17 Time of Evaluation: 13:09 - Subjective Subjective: Patient was brought to Endoscopy for colonoscopy, but was found to be confused, in restraints. No family was available to provide consent, so the procedure was canceled. Today's blood work shows a slight improvement in TBILI and AST: TBILI is now 5.1 (down from 6.1) , AST 116 (127). Objective - Vital Signs/Intake and Output Vital Signs (last 24 hours): Temp Pulse Resp BP Pulse Ox 98.2 F 115 H 20 109/78 95 07/21/17 08:02 07/21/17 08:02 07/21/17 08:02 07/21/17 08:02 07/21/17 08:02 Intake and Output: 07/21/17 07/21/17 06:59 18:59 Intake Total 531 Output Total 500 Balance 31 - Medications Medications: Current Medications Folic Acid 1 mg/ Sodium (Chloride) 100.2 mls @ 60 mls/hr IV DAILY [facility] Last Admin: 07/21/17 11:36 Dose: 60 mls/hr Metronidazole (Flagyl) 500 mg in 100 mls @ 100 mls/hr IVPB Q8H [facility] Last Admin: 07/21/17 08:20 Dose: 100 mls/hr Ciprofloxacin (Cipro 400mg/200ml Dsw) 400 mg in 200 mls @ 133 mls/hr IVPB Q12H [facility] Last Admin: 07/21/17 01:40 Dose: 133 mls/hr Sodium Chloride (Sodium Chloride 0.9%) 1,000 mls @ 75 mls/hr IV .[id number] [facility] Last Admin: 07/21/17 06:28 Dose: 75 mls/hr Potassium Phosphate 15 mmole/ (Sodium Chloride) 255 mls @ 42.5 mls/hr IVPB ONCE ONE Stop: 07/21/17 15:59 Last Admin: 07/21/17 11:00 Dose: 42.5 mls/hr Lorazepam (Ativan) 1 mg PO Q4H PRN PRN Reason: Anxiety Lorazepam (Ativan) 2 mg IVP Q8H [facility] Stop: 07/22/17 00:01 Last Admin: 07/21/17 10:26 Dose: 2 mg Lorazepam (Ativan) 2 mg IVP Q12H [facility] Stop: 07/23/17 00:01 Lorazepam (Ativan) 2 mg IVP Q24H [facility] Stop: 07/24/17 00:01 Nicotine (Nicoderm Cq) 1 patch TD DAILY [facility] Last Admin: 07/21/17 10:20 Dose: 1 patch Thiamine HCl (Vitamin B1 Inj) 100 mg IV DAILY [facility] Last Admin: 07/21/17 11:36 Dose: 100 mg Trazodone HCl (Desyrel) 50 mg PO HS [facility] Last Admin: 07/20/17 21:36 Dose: 50 mg - Labs Labs: 07/21/17 06:56 07/21/17 06:56 PT 25.0 SECONDS (9.7-12.2) H D 07/21/17 12:08 INR 2.1 D 07/21/17 12:08 APTT 34 SECONDS (21-34) 07/18/17 13:52 - Constitutional Appears: Confused - Head Exam Head Exam: ATRAUMATIC, NORMOCEPHALIC - Eye Exam Eye Exam: EOMI, Scleral icterus - Neck Exam Neck Exam: absent: Lymphadenopathy, Thyromegaly - Respiratory Exam Respiratory Exam: NORMAL BREATHING PATTERN. absent: Rales, Rhonchi, Wheezes - Cardiovascular Exam Cardiovascular Exam: REGULAR RHYTHM, +S1, +S2. absent: Gallop, Rubs, Murmur - GI/Abdominal Exam GI & Abdominal Exam: Distended, Soft, Normal Bowel Sounds. absent: Tenderness, Organomegaly - Rectal Exam Rectal Exam: Deferred - Extremities Exam Extremities Exam: absent: Calf Tenderness, Pedal Edema Assessment and Plan (1) Alcoholic hepatitis Assessment & Plan: Bilirubin is improving slowly. Discriminant function today is Status: Acute (2) Diarrhea Assessment & Plan: Awaiting consent for colonoscopy. Status: Acute (3) Ascites Assessment & Plan: Awaiting results of albumin, total protein, cytology Status: Acute
[2017-07-21] MEDS ORDERED: Phytonadione 10 mg/ml Inj (Adult) SC STA ×2 (13:14→13:40)
[2017-07-21] MEDS ORDERED: Albumin Human 25% (12.5 gm/50 ml) IV ONE ×2 (13:39→14:00)
--- NOTE | 2017-07-21 13:51 | CP.PCM.PN ---
<Amanda Whitley - Last Filed: 07/21/17 13:48> Subjective - Date & Time of Evaluation Date of Evaluation: 07/21/17 Time of Evaluation: 07:00 - Subjective Subjective: PGY1- Medicine Note- Dr. Huitron's Service Patient seen and examined at bedside and in no acute distress. As per nursing patient was agitated overnight and had to be placed in restraints. Today patient is lethargic but not agitated. He complains of mild generalized abdominal pain. Patient denies any chest pain, nausea, vomiting. Objective - Vital Signs/Intake and Output Vital Signs (last 24 hours): Temp Pulse Resp BP Pulse Ox 98.4 F 100 H 20 112/76 99 07/21/17 13:37 07/21/17 13:37 07/21/17 13:37 07/21/17 13:37 07/21/17 13:37 Intake and Output: 07/21/17 07/21/17 06:59 18:59 Intake Total 531 Output Total 500 Balance 31 - Medications Medications: Current Medications Albumin Human (Albumin Human 25% (12.5 Gm/50 Ml)) 12.5 gm IV ONCE ONE Stop: 07/21/17 13:40 Albumin Human (Albumin Human 25% (12.5 Gm/50 Ml)) 12.5 gm IV ONCE ONE Stop: 07/21/17 13:41 Folic Acid 1 mg/ Sodium (Chloride) 100.2 mls @ 60 mls/hr IV DAILY [facility] Last Admin: 07/21/17 11:36 Dose: 60 mls/hr Metronidazole (Flagyl) 500 mg in 100 mls @ 100 mls/hr IVPB Q8H [facility] Last Admin: 07/21/17 08:20 Dose: 100 mls/hr Ciprofloxacin (Cipro 400mg/200ml Dsw) 400 mg in 200 mls @ 133 mls/hr IVPB Q12H [facility] Last Admin: 07/21/17 13:12 Dose: 133 mls/hr Sodium Chloride (Sodium Chloride 0.9%) 1,000 mls @ 75 mls/hr IV .[id number] [facility] Last Admin: 07/21/17 06:28 Dose: 75 mls/hr Potassium Phosphate 15 mmole/ (Sodium Chloride) 255 mls @ 42.5 mls/hr IVPB ONCE ONE Stop: 07/21/17 15:59 Last Admin: 07/21/17 11:00 Dose: 42.5 mls/hr Lorazepam (Ativan) 1 mg PO Q4H PRN PRN Reason: Anxiety Lorazepam (Ativan) 2 mg IVP Q8H [facility] Stop: 07/22/17 00:01 Last Admin: 07/21/17 10:26 Dose: 2 mg Lorazepam (Ativan) 2 mg IVP Q12H [facility] Stop: 07/23/17 00:01 Lorazepam (Ativan) 2 mg IVP Q24H [facility] Stop: 07/24/17 00:01 Nicotine (Nicoderm Cq) 1 patch TD DAILY [facility] Last Admin: 07/21/17 10:20 Dose: 1 patch Thiamine HCl (Vitamin B1 Inj) 100 mg IV DAILY [facility] Last Admin: 07/21/17 11:36 Dose: 100 mg Trazodone HCl (Desyrel) 50 mg PO HS [facility] Last Admin: 07/20/17 21:36 Dose: 50 mg - Labs Labs: 07/21/17 06:56 07/21/17 06:56 PT 25.0 SECONDS (9.7-12.2) H D 07/21/17 12:08 INR 2.1 D 07/21/17 12:08 APTT 34 SECONDS (21-34) 07/18/17 13:52 - Constitutional Appears: Non-toxic, Chronically Ill - Head Exam Head Exam: ATRAUMATIC, NORMAL INSPECTION, NORMOCEPHALIC - Eye Exam Eye Exam: EOMI, Normal appearance - ENT Exam ENT Exam: Mucous Membranes Moist - Respiratory Exam Respiratory Exam: Clear to Ausculation Bilateral, NORMAL BREATHING PATTERN. absent: Rales, Rhonchi, Wheezes, Respiratory Distress, Stridor - Cardiovascular Exam Cardiovascular Exam: REGULAR RHYTHM, +S1, +S2 - GI/Abdominal Exam GI & Abdominal Exam: Distended, Soft, Normal Bowel Sounds. absent: Tenderness - Extremities Exam Extremities Exam: Normal Inspection. absent: Pedal Edema - Neurological Exam Neurological Exam: Alert, Awake - Psychiatric Exam Psychiatric exam: Normal Affect, Normal Mood - Skin Skin Exam: Intact, Normal Color, Warm Assessment and Plan - Assessment and Plan (Free Text) Assessment: Colitis No leukocytosis, afebrile Consult GI, Dr Brannon ma dif neg, giardia negative, stool ova and parasite negative, stool culture negative, blood culture negative patient to get colonoscopy once consent is obtained Imaging: CT abd/pelvis with IV contrast 07/17: Significant bowel wall thickening involving the colon, appearance most consistent with acute colitis, cannot exclude underlying neoplasm. Small to moderate ascites. Fatty infiltration of the liver. Heterogeneous appearance to hepatic parenchyma. Some of appearance may be due to transient hepatic attenuation differences, concern for underlying lesion. Meds: Cipro 400 IV daily Flagyl 500 IV Q8 Alcohol abuse Elevated serum alcohol on admission 292 CIWA protocol Seizure and aspiration precautions Lipase NORMAL 07/19/17: AST: 173, ALT: 35, Alk Phos: 236 T bili: 4.5 ammonia 32 on 07/18/17 Ativan 1mg PO Q4h PRN Ativan taper Thiamine 100 mg daily Folic acid 1 mg daily Psych consult, Dr. Man, help appreciated Ascites Consult GI, Dr South Likely 08/19 to [address] liver disease CT abd/pelvis shows small to moderate ascites Paracentesis done today 07/19/17 with 2.1 L straw colored fluid removed. 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 Tran help appreciated stool occult blood negative Tobacco use disorder Nicotine patch Urinary Retention bladder scan showed 337ml retained, probably due to clogged valdez d/c valdez monitor urine output Prophylactic Measure SCDs NS @75 cc/hr CLD, will upgrade further if tolerating <Ruth Huitron - Last Filed: 07/21/17 17:20> Objective - Vital Signs/Intake and Output Vital Signs (last 24 hours): Temp Pulse Resp BP Pulse Ox 99.1 F 94 H 20 108/73 98 07/21/17 15:20 07/21/17 15:20 07/21/17 15:20 07/21/17 15:20 07/21/17 15:20 Intake and Output: 07/21/17 07/21/17 06:59 18:59 Intake Total 531 100 Output Total 500 Balance 31 100 - Medications Medications: Current Medications Albumin Human (Albumin Human 25% (12.5 Gm/50 Ml)) 12.5 gm IV Q1H [facility] Stop: 07/21/17 18:01 Folic Acid 1 mg/ Sodium (Chloride) 100.2 mls @ 60 mls/hr IV DAILY [facility] Last Admin: 07/21/17 11:36 Dose: 60 mls/hr Metronidazole (Flagyl) 500 mg in 100 mls @ 100 mls/hr IVPB Q8H [facility] Last Admin: 07/21/17 15:57 Dose: 100 mls/hr Ciprofloxacin (Cipro 400mg/200ml Dsw) 400 mg in 200 mls @ 133 mls/hr IVPB Q12H [facility] Last Admin: 07/21/17 13:12 Dose: 133 mls/hr Sodium Chloride (Sodium Chloride 0.9%) 1,000 mls @ 75 mls/hr IV .[id number] [facility] Last Admin: 07/21/17 06:28 Dose: 75 mls/hr Lorazepam (Ativan) 1 mg PO Q4H PRN PRN Reason: Anxiety Lorazepam (Ativan) 2 mg IVP Q8H [facility] Stop: 07/22/17 00:01 Last Admin: 07/21/17 15:57 Dose: 2 mg Lorazepam (Ativan) 2 mg IVP Q12H [facility] Stop: 07/23/17 00:01 Lorazepam (Ativan) 2 mg IVP Q24H [facility] Stop: 07/24/17 00:01 Nicotine (Nicoderm Cq) 1 patch TD DAILY [facility] Last Admin: 07/21/17 10:20 Dose: 1 patch Phytonadione (Vitamin K Inj) 10 mg SC ONCE ONE Stop: 07/22/17 10:01 Thiamine HCl (Vitamin B1 Inj) 100 mg IV DAILY [facility] Last Admin: 07/21/17 11:36 Dose: 100 mg Trazodone HCl (Desyrel) 50 mg PO HS [facility] Last Admin: 07/20/17 21:36 Dose: 50 mg - Labs Labs: 07/21/17 06:56 07/21/17 06:56 PT 25.0 SECONDS (9.7-12.2) H D 07/21/17 12:08 INR 2.1 D 07/21/17 12:08 APTT 34 SECONDS (21-34) 07/18/17 13:52 Attending/Attestation - Attestation I have personally seen and examined this patient.: Yes I have fully participated in the care of the patient.: Yes I have reviewed all pertinent clinical information, including history, physical exam and plan: Yes Notes (Text): Patient was seen and examined He is confused and pulling things.d/w RN Patient was interviewed with the help of Gujarati speaking senior financial reporting accountant He states that he lives in [place].not oriented to place,person and time this afternoon Colonoscopy was canceled. seen by psychiatrist.continue ativan for alcohol withdrawal. d/w the resident I agree with the documentation of the resident's assessment and the plan 07/21/17 17:16
[2017-07-21] MEDS: Albumin Human 25% (12.5 gm/50 ml) IV SCH ×2 (17:18→18:21)
[2017-07-21 22:51] LABS: TRIGLYCERIDES PERITONEAL FLUID 50 mg/dL (<65)
--- NOTE | 2017-07-21 23:24 | RAD ---
EXAM: XR Chest, 1 View CLINICAL HISTORY: 51 years old, male; Signs and symptoms; Other: Fever TECHNIQUE: Frontal view of the chest. COMPARISON: CR - CHEST PORTABLE 2015-11-18 12:20 FINDINGS: Lungs: Moderate underinflation. Minimal subsegmental atelectasis. Mild patchy opacity left lung base. Probable RUL calcified granuloma. Pleural space: Cannot exclude small pleural effusions. No pneumothorax. Heart: No cardiomegaly. Mediastinum: Unremarkable. Bones/joints: No acute fracture. Tubes, lines and devices: Leads overlying chest. IMPRESSION: 1. Left basilar atelectasis versus pneumonia. 2. Incidental/non-acute findings are described above.
[2017-07-22] MEDS: metroNIDAZOLE IV 500 mg/100 ml 500 MG/100 ML BAG IVPB SCH ×3 (00:44→16:17)
[2017-07-22 00:47] LABS: BASO % 0.5 % (0.0-2.0); EOS % 0.1 % (0.0-4.0); HEMOGLOBIN 8.6 g/dL (12.0-18.0); LYMPH # 1.2 K/uL (1.0-4.3); LYMPH % 14.1 % (20.0-40.0); MEAN CELL VOLUME 88.4 fL (80.0-94.0); MEAN CORPUSCULAR HEMOGLOBIN 29.7 pg (27.0-31.0); MEAN CORPUSCULAR HGB CONC 33.7 g/dL (33.0-37.0); MEAN PLATELET VOLUME 8.9 fL (7.2-11.7); MONO # 0.7 K/uL (0.0-0.8); MONO % 8.1 % (0.0-10.0); NEUT # 6.8 K/uL (1.8-7.0); NEUT % 77.2 % (50.0-75.0); NRBC % 0.1 % (0.0-2.0); RBC 2.9 Mil/uL (4.40-5.90); RED CELL DISTRIBUTION WIDTH 21.9 % (11.5-14.5); WHITE BLOOD COUNT 8.8 K/uL (4.8-10.8)
[2017-07-22 00:55] LABS: ALBUMIN 2.7 g/dL (3.5-5.0); ALT/SGPT 32 U/L (21-72); AST/SGOT 101 U/L (17-59); BLOOD UREA NITROGEN 2 mg/dL (9-20); CALCIUM 7.2 mg/dl (8.6-10.4); GFR AFRICAN-AMERICAN > 60; GFR NON-AFRICAN AMERICAN > 60
[2017-07-22 00:57] LABS: ALB/GLOB RATIO 0.8 (1.0-2.1)
[2017-07-22 01:19] LABS: GRANULAR CAST 5 /lpf (0-1); SQUAMOUS EPITHIAL 2 /hpf (0-5); URINE BACTERIA RARE (<OCC); URINE BILIRUBIN 1+ (NEGATIVE); URINE BLOOD 2+ (NEGATIVE); URINE CLARITY Clear (Clear); URINE COLOR Amber (YELLOW); URINE GLUCOSE (UA) NORMAL (Normal); URINE HYALINE CAST >20 /lpf (0-2); URINE LEUKOCYTE ESTERASE 1+ Leu/uL (Negative); URINE NITRATE NEGATIVE (NEGATIVE); URINE PROTEIN 2+ mg/dL (NEGATIVE)
[2017-07-22] MEDS: Ciprofloxacin 400mg/200ml D5W 400 MG/200 ML BAG IVPB SCH ×2 (01:40→13:43)
[2017-07-22 01:45] LABS: VENOUS BLOOD GAS BASE EXCESS -0.9 mmol/L (0.0-2.0); VENOUS BLOOD GAS PCO2 31 mmHg (40-60); VENOUS BLOOD GAS PO2 31 mm/Hg (30-55); VENOUS BLOOD PH 7.46 (7.32-7.43)
[2017-07-22 02:52] LABS: AMYLASE PERITONEAL FLUID <10 U/L
[2017-07-22 07:25] LABS: BASO # 0.1 K/uL (0.0-0.2); BASO % 0.7 % (0.0-2.0); EOS % 0.5 % (0.0-4.0); HEMOGLOBIN 8.1 g/dL (12.0-18.0); LYMPH # 1.4 K/uL (1.0-4.3); LYMPH % 17.9 % (20.0-40.0); MEAN CELL VOLUME 89.1 fL (80.0-94.0); MEAN CORPUSCULAR HEMOGLOBIN 30.1 pg (27.0-31.0); MEAN CORPUSCULAR HGB CONC 33.8 g/dL (33.0-37.0); MEAN PLATELET VOLUME 8.5 fL (7.2-11.7); MONO # 0.5 K/uL (0.0-0.8); NEUT # 5.7 K/uL (1.8-7.0); NEUT % 73.9 % (50.0-75.0); NRBC % 0.1 % (0.0-2.0); RBC 2.7 Mil/uL (4.40-5.90); RED CELL DISTRIBUTION WIDTH 21.7 % (11.5-14.5); WHITE BLOOD COUNT 7.7 K/uL (4.8-10.8)
[2017-07-22 07:32] LABS: INR 2.4; PROTHROMBIN TIME 27.3 SECONDS (9.7-12.2)
--- NOTE | 2017-07-22 08:17 | CP.PCM.PN ---
Subjective - Date & Time of Evaluation Date of Evaluation: 07/22/17 Time of Evaluation: 08:12 - Subjective Subjective: Patient is calmer, out of restraints. He has no new complaints. Objective - Vital Signs/Intake and Output Vital Signs (last 24 hours): Temp Pulse Resp BP Pulse Ox 97.6 F 102 H 20 113/74 95 07/22/17 07:23 07/22/17 07:23 07/22/17 07:23 07/22/17 07:23 07/22/17 07:23 Intake and Output: 07/22/17 07/22/17 06:59 18:59 Intake Total 380 300 Output Total 100 185 Balance 280 115 - Medications Medications: Current Medications Folic Acid 1 mg/ Sodium (Chloride) 100.2 mls @ 60 mls/hr IV DAILY [facility] Last Admin: 07/21/17 11:36 Dose: 60 mls/hr Metronidazole (Flagyl) 500 mg in 100 mls @ 100 mls/hr IVPB Q8H [facility] Last Admin: 07/22/17 00:44 Dose: 100 mls/hr Ciprofloxacin (Cipro 400mg/200ml Dsw) 400 mg in 200 mls @ 133 mls/hr IVPB Q12H [facility] Last Admin: 07/22/17 01:40 Dose: 133 mls/hr Potassium Chloride 20 meq/ (Sodium Chloride) 1,010 mls @ 100 mls/hr IV .Q10H6M [facility] Lorazepam (Ativan) 1 mg PO Q4H PRN PRN Reason: Anxiety Lorazepam (Ativan) 2 mg IVP Q12H [facility] Stop: 07/23/17 00:01 Last Admin: 07/22/17 00:25 Dose: 2 mg Lorazepam (Ativan) 2 mg IVP Q24H [facility] Stop: 07/24/17 00:01 Nicotine (Nicoderm Cq) 1 patch TD DAILY [facility] Last Admin: 07/21/17 10:20 Dose: 1 patch Phytonadione (Vitamin K Inj) 10 mg SC ONCE ONE Stop: 07/22/17 10:01 Potassium Chloride (Potassium Chloride Oral Soln) 40 meq PO ONCE ONE Stop: 07/22/17 08:00 Thiamine HCl (Vitamin B1 Inj) 100 mg IV DAILY [facility] Last Admin: 07/21/17 11:36 Dose: 100 mg Trazodone HCl (Desyrel) 50 mg PO [facility] Last Admin: 07/21/17 22:00 Dose: 50 mg - Labs Labs: 07/22/17 07:16 07/22/17 00:36 PT 27.3 SECONDS (9.7-12.2) H 07/22/17 07:16 INR 2.4 07/22/17 07:16 APTT 34 SECONDS (21-34) 07/18/17 13:52 - Constitutional Appears: No Acute Distress - Head Exam Head Exam: ATRAUMATIC, NORMOCEPHALIC - Neck Exam Neck Exam: absent: Lymphadenopathy, Thyromegaly - Respiratory Exam Respiratory Exam: NORMAL BREATHING PATTERN. absent: Rales, Rhonchi, Wheezes - Cardiovascular Exam Cardiovascular Exam: REGULAR RHYTHM, +S1, +S2. absent: Gallop, Rubs, Murmur - GI/Abdominal Exam GI & Abdominal Exam: Distended, Soft, Normal Bowel Sounds. absent: Tenderness, Organomegaly Additional comments: Positive fluid wave - Rectal Exam Rectal Exam: Deferred - Extremities Exam Extremities Exam: absent: Calf Tenderness, Pedal Edema Assessment and Plan (1) Alcoholic hepatitis Assessment & Plan: Total bilirubin (4.4) and other LFTs (ast 101, alt 32, alkp 199) continue to improve slowly. However, the PT is up to 27.3. Will continue to follow PT and monitor. Status: Acute (2) Diarrhea Assessment & Plan: Stool culture and O and P are negative. If consent is obtained, colonoscopy can be scheduled for Tuesday. Status: Acute (3) Ascites Assessment & Plan: Fluid total protein is <3.0, not consistent with CHF. Amylase and triglycerides are within normal limits. Awaiting ascitic fluid albumin. Status: Acute
[2017-07-22] MEDS ORDERED: Potassium Chloride 20 mEq/15 ml LIQ UD PO ONE (08:30)
[2017-07-22 08:34] LABS: ALB/GLOB RATIO 0.7 (1.0-2.1); ALBUMIN 2.4 g/dL (3.5-5.0); ALT/SGPT 29 U/L (21-72); AST/SGOT 78 U/L (17-59); BLOOD UREA NITROGEN 2 mg/dL (9-20); GFR AFRICAN-AMERICAN > 60; GFR NON-AFRICAN AMERICAN > 60; MAGNESIUM 1.3 mg/dL (1.6-2.3)
[2017-07-22] MEDS ORDERED: Phytonadione 10 mg/ml Inj (Adult) SC ONE (10:00)
[2017-07-22] MEDS ORDERED: Potassium Phosphate 15 MMOLE in Sodium Chloride 0.9% 250 ML IVPB ONE (10:00)
[2017-07-22] MEDS: Magnesium Sulfate 1 gm in D5W 1 GM/100 ML BAG IVPB SCH ×2 (10:13→11:20)
[2017-07-22] MEDS: Thiamine 100 mg/ml Inj IV SCH (10:14)
[2017-07-22 12:07] LABS: HEPATITIS B SURFACE AG NEGATIVE (NEGATIVE)
[2017-07-22 12:12] LABS: HEPATITIS A IGM NEGATIVE (NEGATIVE); HEPATITIS B CORE AB Negative (NEGATIVE)
[2017-07-22 12:24] LABS: HEPATITIS C ANTIBODY Negative (NEGATIVE)
[2017-07-22] MEDS ORDERED: Potassium Chloride 20 mEq ER Tab PO ONE (13:00)
--- NOTE | 2017-07-22 13:44 | PCM.PYCHPN ---
Psychiatric Progress Note - Psychiatric Progress Note Patient seen today, length of contact: 16 Patient Chief Complaint: Alcohol Detox Problems Identified/Issues Discussed: Theptis seen, chart reviewed, case discussed with staff. Theptis compliant with medications and reports no side-effects. Symptoms are improving but needs more time to stabilize.Patient reports feeling tired. While speaking with patient, required multiple attempts to regain attention and focus as he kept falling asleep. Patient denies tremors, auditory and visual hallucinations. Oriented x3. After care discussed, support andpsychoeducationgiven. Medication Change: Yes (daily detox changes) Medical Record Reviewed: Yes Mental Status Examination - Cognitive Function Orientation: Person, Place, Situation, Time Attention: Poor Concentration: Poor Fund of Knowledge: Poor - Mood Mood: Neutral - Affect Affect: Constricted - Speech Speech: Soft (mumbling) - Suicidal Ideation Suicidal Ideation: No - Homicidal Ideation Homicidal Ideation: No Goal/Treatment Plan - Goal/Treatment Plan Need for Continued Stay: Discharge may exacerbated symptoms, Severe functional impairment Progress Toward Problem(s) and Goals/Treatment Plan: Alcohol detox Elevated serum alcohol on admission: 292 CIWA protocol Seizure and aspiration precaution Ativan taper - 2mg Q12 on 07/22 - 2mg Q24 on 07/23 Ativan 1mg Q4 PRN Continue Folic acid, Thiamine Refer to outpatient follow up, AA meetings Smoking cessation with Nicotine patch - Smoking Cessation Smoking Cessation Initiated: Yes
--- NOTE | 2017-07-22 15:01 | CP.PCM.PN ---
Addendum entered and electronically signed by Amanda Whitley 07/22/17 16:25 : Toby Peng () - [phone] Luis (friend) - [phone] Original Note: <Amanda Whitley Nehemiah - Last Filed: 07/22/17 14:46> Subjective - Date & Time of Evaluation Date of Evaluation: 07/22/17 Time of Evaluation: 07:00 - Subjective Subjective: PGY1- Medicine Note- Dr. Huitron's service Patient seen and examined at bedside and in no acute distress. Patient is oriented x3, but forgetful. Today patient is less lethargic than yesterday and not agitated. He complains of generalized abdominal pain which comes and goes. Patient is still having diarrhea. Patient denies any chest pain, nausea, vomiting. He understands that he will need a colonoscopy. Patient has minimal appetite and says he is not hungry despite only being on liquid diet. Patient explains he has a and friend which he is somewhat in contact with and provided me with phone numbers. Patient's called, but she was not home. Objective - Vital Signs/Intake and Output Vital Signs (last 24 hours): Temp Pulse Resp BP Pulse Ox 97.6 F 102 H 20 113/74 95 07/22/17 07:23 07/22/17 07:23 07/22/17 07:23 07/22/17 07:23 07/22/17 07:23 Intake and Output: 07/22/17 07/22/17 06:59 18:59 Intake Total 380 500 Output Total 100 185 Balance 280 315 - Medications Medications: Current Medications Folic Acid 1 mg/ Sodium (Chloride) 100.2 mls @ 60 mls/hr IV DAILY [facility] Last Admin: 07/22/17 10:13 Dose: 60 mls/hr Metronidazole (Flagyl) 500 mg in 100 mls @ 100 mls/hr IVPB Q8H [facility] Last Admin: 07/22/17 08:33 Dose: 100 mls/hr Ciprofloxacin (Cipro 400mg/200ml Dsw) 400 mg in 200 mls @ 133 mls/hr IVPB Q12H [facility] Last Admin: 07/22/17 13:43 Dose: 133 mls/hr Potassium Chloride 20 meq/ (Sodium Chloride) 1,010 mls @ 100 mls/hr IV .Q10H6M [facility] Last Admin: 07/22/17 11:18 Dose: 100 mls/hr Lactulose (Enulose) 20 gm PO DAILY [facility] Last Admin: 07/22/17 10:21 Dose: 20 gm Lorazepam (Ativan) 1 mg PO Q4H PRN PRN Reason: Anxiety Lorazepam (Ativan) 2 mg IVP Q12H [facility] Stop: 07/23/17 00:01 Last Admin: 07/22/17 11:51 Dose: Not Given Lorazepam (Ativan) 2 mg IVP Q24H [facility] Stop: 07/24/17 00:01 Nicotine (Nicoderm Cq) 1 patch TD DAILY [facility] Last Admin: 07/22/17 10:13 Dose: 1 patch Phytonadione (Vitamin K Inj) 10 mg SC ONCE [facility] Rifaximin (Xifaxan) 550 mg PO BID [facility] Last Admin: 07/22/17 11:50 Dose: 550 mg Thiamine HCl (Vitamin B1 Inj) 100 mg IV DAILY [facility] Last Admin: 07/22/17 10:14 Dose: 100 mg Trazodone HCl (Desyrel) 50 mg PO HS [facility] Last Admin: 07/21/17 22:00 Dose: 50 mg - Labs Labs: 07/22/17 07:16 07/22/17 07:16 PT 27.3 SECONDS (9.7-12.2) H 07/22/17 07:16 INR 2.4 07/22/17 07:16 APTT 34 SECONDS (21-34) 07/18/17 13:52 - Constitutional Appears: Non-toxic, No Acute Distress - Head Exam Head Exam: ATRAUMATIC, NORMAL INSPECTION, NORMOCEPHALIC - Eye Exam Eye Exam: EOMI, Normal appearance - ENT Exam ENT Exam: Mucous Membranes Dry - Neck Exam Neck Exam: Full ROM - Respiratory Exam Respiratory Exam: Clear to Ausculation Bilateral, NORMAL BREATHING PATTERN - Cardiovascular Exam Cardiovascular Exam: REGULAR RHYTHM, +S1, +S2 - GI/Abdominal Exam GI & Abdominal Exam: Distended, Soft, Tenderness, Normal Bowel Sounds - Extremities Exam Extremities Exam: Normal Inspection. absent: Pedal Edema - Neurological Exam Neurological Exam: Alert, Awake, Oriented x3 - Psychiatric Exam Psychiatric exam: Normal Affect, Normal Mood - Skin Skin Exam: Intact, Normal Color, Warm Assessment and Plan - Assessment and Plan (Free Text) Assessment: Colitis No leukocytosis, afebrile Consult GI, Dr Brannon ma dif neg, giardia negative, stool ova and parasite negative, stool culture negative, blood culture negative patient to get colonoscopy once consent is obtained Imaging: CT abd/pelvis with IV contrast 07/17: Significant bowel wall thickening involving the colon, appearance most consistent with acute colitis, cannot exclude underlying neoplasm. Small to moderate ascites. Fatty infiltration of the liver. Heterogeneous appearance to hepatic parenchyma. Some of appearance may be due to transient hepatic attenuation differences, concern for underlying lesion. Meds: Cipro 400 IV daily Flagyl 500 IV Q8 f/u repeat c dif f/u HIV and Hep panel Alcohol abuse Elevated serum alcohol on admission 292 CIWA protocol Seizure and aspiration precautions Lipase NORMAL 07/19/17: AST: 173, ALT: 35, Alk Phos: 236 T bili: 4.5 ammonia 32 on 07/18/17 Ativan 1mg PO Q4h PRN Ativan taper Thiamine 100 mg daily Folic acid 1 mg daily Psych consult, Dr. Man, help appreciated Ascites Consult GI, Dr South Likely 08/[address] to [address] liver disease CT abd/pelvis shows small to moderate ascites Paracentesis done today 07/19/17 with 2.1 L straw colored fluid removed. 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 Tran help appreciated stool occult blood negative Tobacco use disorder Nicotine patch Urinary Retention bladder scan prn monitor urine output Prophylactic Measure SCDs NS @75 cc/hr diarrhea management diet, soft <[id number] - Last Filed: 08/24/17 08:37> Objective - Vital Signs/Intake and Output Vital Signs (last 24 hours): Temp Pulse Resp BP Pulse Ox 97.9 F 112 H 18 125/81 100 07/22/17 15:20 07/22/17 19:03 07/22/17 15:20 07/22/17 15:20 07/22/17 15:20 Intake and Output: 07/22/17 07/23/17 18:59 06:59 Intake Total 500 Output Total 185 Balance 315 - Medications Medications: Current Medications Folic Acid 1 mg/ Sodium (Chloride) 100.2 mls @ 60 mls/hr IV DAILY [facility] Last Admin: 07/22/17 10:13 Dose: 60 mls/hr Metronidazole (Flagyl) 500 mg in 100 mls @ 100 mls/hr IVPB Q8H [facility] Last Admin: 07/22/17 16:17 Dose: 100 mls/hr Ciprofloxacin (Cipro 400mg/200ml Dsw) 400 mg in 200 mls @ 133 mls/hr IVPB Q12H [facility] Last Admin: 07/22/17 13:43 Dose: 133 mls/hr Potassium Chloride 20 meq/ (Sodium Chloride) 1,010 mls @ 100 mls/hr IV .Q10H6M [facility] Last Admin: 07/22/17 18:21 Dose: Not Given Lactulose (Enulose) 20 gm PO DAILY [facility] Last Admin: 07/22/17 10:21 Dose: 20 gm Lorazepam (Ativan) 1 mg PO Q4H PRN PRN Reason: Anxiety Lorazepam (Ativan) 2 mg IVP Q12H [facility] Stop: 07/23/17 00:01 Last Admin: 07/22/17 11:51 Dose: Not Given Lorazepam (Ativan) 2 mg IVP Q24H [facility] Stop: 07/24/17 00:01 Multivitamins (Hexavitamin) 1 tab PO DAILY [facility] Last Admin: 07/22/17 16:17 Dose: 1 tab Nicotine (Nicoderm Cq) 1 patch TD DAILY [facility] Last Admin: 07/22/17 10:13 Dose: 1 patch Phytonadione (Vitamin K Inj) 10 mg SC ONCE [facility] Rifaximin (Xifaxan) 550 mg PO BID [facility] Last Admin: 07/22/17 17:13 Dose: 550 mg Thiamine HCl (Vitamin B1 Inj) 100 mg IV DAILY [facility] Last Admin: 07/22/17 10:14 Dose: 100 mg Trazodone HCl (Desyrel) 50 mg PO [facility] Last Admin: 07/21/17 22:00 Dose: 50 mg - Labs Labs: 07/22/17 07:16 07/22/17 07:16 PT 27.3 SECONDS (9.7-12.2) H 07/22/17 07:16 INR 2.4 07/22/17 07:16 APTT 34 SECONDS (21-34) 07/18/17 13:52 Attending/Attestation - Attestation I have personally seen and examined this patient.: Yes I have fully participated in the care of the patient.: Yes I have reviewed all pertinent clinical information, including history, physical exam and plan: Yes
[2017-07-22] MEDS: Multiple Vitamins Tab PO SCH (16:17)
[2017-07-23] MEDS: metroNIDAZOLE IV 500 mg/100 ml 500 MG/100 ML BAG IVPB SCH ×3 (01:39→17:46)
[2017-07-23] MEDS: Ciprofloxacin 400mg/200ml D5W 400 MG/200 ML BAG IVPB SCH ×2 (02:41→13:54)
[2017-07-23 07:31] LABS: BASO # 0.1 K/uL (0.0-0.2); BASO % 0.7 % (0.0-2.0); EOS # 0.1 K/uL (0.0-0.7); EOS % 0.8 % (0.0-4.0); HEMOGLOBIN 8.1 g/dL (12.0-18.0); LYMPH # 1.3 K/uL (1.0-4.3); LYMPH % 16.8 % (20.0-40.0); MEAN CELL VOLUME 89.7 fL (80.0-94.0); MEAN CORPUSCULAR HGB CONC 33.5 g/dL (33.0-37.0); MEAN PLATELET VOLUME 8.6 fL (7.2-11.7); MONO # 0.7 K/uL (0.0-0.8); MONO % 9.9 % (0.0-10.0); NEUT # 5.4 K/uL (1.8-7.0); NEUT % 71.8 % (50.0-75.0); NRBC % 0.1 % (0.0-2.0); RBC 2.69 Mil/uL (4.40-5.90); RED CELL DISTRIBUTION WIDTH 22.3 % (11.5-14.5); WHITE BLOOD COUNT 7.5 K/uL (4.8-10.8)
[2017-07-23 07:36] LABS: INR 2.1; PROTHROMBIN TIME 24.7 SECONDS (9.7-12.2)
[2017-07-23 08:01] LABS: ALB/GLOB RATIO 0.7 (1.0-2.1); ALBUMIN 2.2 g/dL (3.5-5.0); ALT/SGPT 29 U/L (21-72); AST/SGOT 68 U/L (17-59); BLOOD UREA NITROGEN 3 mg/dL (9-20); CALCIUM 7.1 mg/dl (8.6-10.4); GFR AFRICAN-AMERICAN > 60; GFR NON-AFRICAN AMERICAN > 60
[2017-07-23] MEDS: Multiple Vitamins Tab PO SCH (09:44)
[2017-07-23] MEDS ORDERED: Phytonadione 10 mg/ml Inj (Adult) SC SCH (10:00)
[2017-07-23 10:20] LABS: MAGNESIUM 1.6 mg/dL (1.6-2.3)
--- NOTE | 2017-07-23 12:06 | CP.PCM.PN ---
Subjective - Date & Time of Evaluation Date of Evaluation: 07/23/17 Time of Evaluation: 12:03 - Subjective Subjective: Covering dr South +Diarrhea, begun on Lactulose. Also on Rifaximin for Hepatic encephalopathy Alert, follows simple commands Disoriented Objective - Vital Signs/Intake and Output Vital Signs (last 24 hours): Temp Pulse Resp BP Pulse Ox 98.8 F 106 H 18 105/72 97 07/23/17 07:35 07/23/17 07:35 07/23/17 07:35 07/23/17 07:35 07/23/17 07:35 Intake and Output: 07/23/17 07/23/17 06:59 18:59 Intake Total 2100 Output Total 200 Balance 1900 - Medications Medications: Current Medications Folic Acid 1 mg/ Sodium (Chloride) 100.2 mls @ 60 mls/hr IV DAILY [facility] Last Admin: 07/22/17 10:13 Dose: 60 mls/hr Metronidazole (Flagyl) 500 mg in 100 mls @ 100 mls/hr IVPB Q8H [facility] Last Admin: 07/23/17 01:39 Dose: 100 mls/hr Ciprofloxacin (Cipro 400mg/200ml Dsw) 400 mg in 200 mls @ 133 mls/hr IVPB Q12H [facility] Last Admin: 07/23/17 02:41 Dose: 133 mls/hr Potassium Chloride 20 meq/ (Sodium Chloride) 1,010 mls @ 100 mls/hr IV .Q10H6M [facility] Last Admin: 07/22/17 18:21 Dose: Not Given Lorazepam (Ativan) 1 mg PO Q4H PRN PRN Reason: Anxiety Lorazepam (Ativan) 2 mg IVP Q24H [facility] Stop: 07/24/17 00:01 Last Admin: 07/23/17 01:38 Dose: Not Given Multivitamins (Hexavitamin) 1 tab PO DAILY [facility] Last Admin: 07/23/17 09:44 Dose: 1 tab Nicotine (Nicoderm Cq) 1 patch TD DAILY [facility] Last Admin: 07/22/17 10:13 Dose: 1 patch Phytonadione (Vitamin K Inj) 10 mg SC ONCE [facility] Rifaximin (Xifaxan) 550 mg PO BID [facility] Last Admin: 07/23/17 09:44 Dose: 550 mg Thiamine HCl (Vitamin B1 Inj) 100 mg IV DAILY [facility] Last Admin: 07/22/17 10:14 Dose: 100 mg Trazodone HCl (Desyrel) 50 mg PO HS [facility] Last Admin: 07/22/17 21:27 Dose: 50 mg - Labs Labs: 07/23/17 07:41 07/23/17 07:20 PT 24.7 SECONDS (9.7-12.2) H 07/23/17 07:20 INR 2.1 07/23/17 07:20 APTT 34 SECONDS (21-34) 07/18/17 13:52 - Constitutional Appears: Confused, Chronically Ill - Head Exam Head Exam: NORMOCEPHALIC - Eye Exam Eye Exam: Scleral icterus - Cardiovascular Exam Cardiovascular Exam: REGULAR RHYTHM - GI/Abdominal Exam GI & Abdominal Exam: Soft. absent: Tenderness Assessment and Plan (1) Alcoholic hepatitis Assessment & Plan: Remains unchanged. Encephalopathic. SAAG > 1.1 consistent with cirrhosis Supportive care in progress Continue Rifaximin Status: Acute (2) Diarrhea Assessment & Plan: Stool studies negative Would not add lactulose in presence of diarrhea Colonoscopy by Dr South if/when consent can be obtained Status: Acute
[2017-07-23] MEDS ORDERED: Potassium Chloride 20 mEq ER Tab PO ONE ×2 (12:28→16:00)
[2017-07-23] MEDS: Thiamine 100 mg/ml Inj IV SCH (14:56)
--- NOTE | 2017-07-23 16:37 | CP.PCM.PN ---
Subjective - Date & Time of Evaluation Date of Evaluation: 07/23/17 Time of Evaluation: 10:00 - Subjective Subjective: Seen and examined,lying comfortable, poor appetite D/W [employer],pt is incontinent of urine,Has condom catheter,Has small amount of diarrhea/non bloody greenish stool with mucus,intake poor on IV fluids unable to reach his family Toby Peng () - [phone] Luis (friend) - [phone] Objective - Vital Signs/Intake and Output Vital Signs (last 24 hours): Temp Pulse Resp BP Pulse Ox 98.8 F 115 H 18 105/72 97 07/23/17 07:35 07/23/17 09:00 07/23/17 07:35 07/23/17 07:35 07/23/17 07:35 Intake and Output: 07/23/17 07/23/17 06:59 18:59 Intake Total 2100 Output Total 200 Balance 1900 - Medications Medications: Current Medications Folic Acid 1 mg/ Sodium (Chloride) 100.2 mls @ 60 mls/hr IV DAILY [facility] Last Admin: 07/23/17 11:00 Dose: 60 mls/hr Metronidazole (Flagyl) 500 mg in 100 mls @ 100 mls/hr IVPB Q8H [facility] Last Admin: 07/23/17 11:00 Dose: 100 mls/hr Ciprofloxacin (Cipro 400mg/200ml Dsw) 400 mg in 200 mls @ 133 mls/hr IVPB Q12H [facility] Last Admin: 07/23/17 13:54 Dose: 133 mls/hr Potassium Chloride 20 meq/ (Sodium Chloride) 1,010 mls @ 100 mls/hr IV .Q10H6M [facility] Last Admin: 07/22/17 18:21 Dose: Not Given Lorazepam (Ativan) 1 mg PO Q4H PRN PRN Reason: Anxiety Lorazepam (Ativan) 2 mg IVP Q24H [facility] Stop: 07/24/17 00:01 Last Admin: 07/23/17 01:38 Dose: Not Given Multivitamins (Hexavitamin) 1 tab PO DAILY [facility] Last Admin: 07/23/17 09:44 Dose: 1 tab Nicotine (Nicoderm Cq) 1 patch TD DAILY [facility] Last Admin: 07/23/17 15:06 Dose: 1 patch Phytonadione (Vitamin K Inj) 10 mg SC ONCE [facility] Rifaximin (Xifaxan) 550 mg PO BID [facility] Last Admin: 07/23/17 09:44 Dose: 550 mg Thiamine HCl (Vitamin B1 Inj) 100 mg IV DAILY [facility] Last Admin: 07/23/17 14:56 Dose: 100 mg Trazodone HCl (Desyrel) 50 mg PO HS [facility] Last Admin: 07/22/17 21:27 Dose: 50 mg - Labs Labs: 07/23/17 07:41 07/23/17 07:20 PT 24.7 SECONDS (9.7-12.2) H 07/23/17 07:20 INR 2.1 07/23/17 07:20 APTT 34 SECONDS (21-34) 07/18/17 13:52 - Constitutional Appears: Non-toxic, No Acute Distress - Head Exam Head Exam: ATRAUMATIC - Eye Exam Pupil Exam: NORMAL ACCOMODATION - ENT Exam ENT Exam: Mucous Membranes Moist - Neck Exam Neck Exam: Full ROM - Respiratory Exam Respiratory Exam: Clear to Ausculation Bilateral, NORMAL BREATHING PATTERN - Cardiovascular Exam Cardiovascular Exam: REGULAR RHYTHM - GI/Abdominal Exam GI & Abdominal Exam: Distended, Soft, Normal Bowel Sounds. absent: Guarding, Mass - Back Exam Back Exam: NORMAL INSPECTION - Neurological Exam Neurological Exam: Alert. absent: Oriented x3 (confused) - Psychiatric Exam Psychiatric exam: Normal Mood - Skin Skin Exam: Rash (deidre anal) Assessment and Plan - Assessment and Plan (Free Text) Plan: 1.Colitis and Diarrhea No leukocytosis, afebrile c dif neg, giardia negative, stool ova and parasite negative, stool culture negative, blood culture negative negative HIV and hep panel patient to get colonoscopy once consent is obtained . (Toby Peng () - [phone] Luis (friend) - [phone] ) stool study fos fat content done Imaging: CT abd/pelvis with IV contrast 07/17: Significant bowel wall thickening involving the colon, appearance most consistent with acute colitis, cannot exclude underlying neoplasm. Small to moderate ascites. Fatty infiltration of the liver. Heterogeneous appearance to hepatic parenchyma. Some of appearance may be due to transient hepatic attenuation differences, concern for underlying lesion. Meds: Cipro 400 IV daily Flagyl 500 IV Q8 2.Alcohol abuse/alcohol intoxication/alcohol withdrawal Elevated serum alcohol on admission 292 Seizure and aspiration precautions Ativan taper Thiamine 100 mg daily Folic acid 1 mg daily Psych consult, Dr. Man, help appreciated 3. Ascites and hepatic encephalopathy Consult GI, Dr South CT abd/pelvis shows small to moderate ascites Paracentesis done today 07/19/17 with 2.1 L straw colored fluid removed. 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 Tran help appreciated stool occult blood negative 6.Tobacco use disorder Nicotine patch 7 .S/P Urinary Retention monitor urine output 7.Prophylactic Measure/supportive care SCDs IV fluids
--- NOTE | 2017-07-23 20:07 | CP.PCM.PN ---
Subjective - Date & Time of Evaluation Date of Evaluation: 07/23/17 Time of Evaluation: 18:00 - Subjective Subjective: Appears comfortable Objective - Vital Signs/Intake and Output Vital Signs (last 24 hours): Temp Pulse Resp BP Pulse Ox 98.8 F 115 H 18 105/72 97 07/23/17 07:35 07/23/17 09:00 07/23/17 07:35 07/23/17 07:35 07/23/17 07:35 - Medications Medications: Current Medications Famotidine (Pepcid) 20 mg PO BID [facility] Last Admin: 07/23/17 17:46 Dose: 20 mg Folic Acid 1 mg/ Sodium (Chloride) 100.2 mls @ 60 mls/hr IV DAILY [facility] Last Admin: 07/23/17 11:00 Dose: 60 mls/hr Metronidazole (Flagyl) 500 mg in 100 mls @ 100 mls/hr IVPB Q8H [facility] Last Admin: 07/23/17 17:46 Dose: 100 mls/hr Ciprofloxacin (Cipro 400mg/200ml Dsw) 400 mg in 200 mls @ 133 mls/hr IVPB Q12H [facility] Last Admin: 07/23/17 13:54 Dose: 133 mls/hr Lorazepam (Ativan) 1 mg PO Q4H PRN PRN Reason: Anxiety Lorazepam (Ativan) 2 mg IVP Q24H [facility] Stop: 07/24/17 00:01 Last Admin: 07/23/17 01:38 Dose: Not Given Morphine Sulfate (Morphine) 1 mg IVP Q6H PRN PRN Reason: Pain, severe (8-10) Last Admin: 07/23/17 19:35 Dose: 1 mg Multivitamins (Hexavitamin) 1 tab PO DAILY [facility] Last Admin: 07/23/17 09:44 Dose: 1 tab Nicotine (Nicoderm Cq) 1 patch TD DAILY [facility] Last Admin: 07/23/17 15:06 Dose: 1 patch Phytonadione (Vitamin K Inj) 10 mg SC ONCE [facility] Rifaximin (Xifaxan) 550 mg PO BID [facility] Last Admin: 07/23/17 17:46 Dose: 550 mg Thiamine HCl (Vitamin B1 Inj) 100 mg IV DAILY [facility] Last Admin: 07/23/17 14:56 Dose: 100 mg Trazodone HCl (Desyrel) 50 mg PO [facility] Last Admin: 07/22/17 21:27 Dose: 50 mg - Labs Labs: 07/23/17 07:41 07/23/17 07:20 PT 24.7 SECONDS (9.7-12.2) H 07/23/17 07:20 INR 2.1 07/23/17 07:20 APTT 34 SECONDS (21-34) 07/18/17 13:52 - Head Exam Head Exam: ATRAUMATIC - ENT Exam ENT Exam: Mucous Membranes Dry - Respiratory Exam Respiratory Exam: NORMAL BREATHING PATTERN - Cardiovascular Exam Cardiovascular Exam: +S1, +S2 - GI/Abdominal Exam GI & Abdominal Exam: Normal Bowel Sounds Assessment and Plan (1) Anemia Assessment & Plan: H/H fairly stable chronic disease/ETOH for possible colonoscopy no iron/b12/folate deficiency Status: Acute (2) Colonic thickening Status: Acute
[2017-07-24] MEDS: metroNIDAZOLE IV 500 mg/100 ml 500 MG/100 ML BAG IVPB SCH ×4 (01:49→23:05)
[2017-07-24] MEDS: Ciprofloxacin 400mg/200ml D5W 400 MG/200 ML BAG IVPB SCH ×2 (01:52→14:07)
[2017-07-24 08:51] LABS: BASO # 0.1 K/uL (0.0-0.2); BASO % 1.2 % (0.0-2.0); EOS # 0.1 K/uL (0.0-0.7); EOS % 0.8 % (0.0-4.0); HEMOGLOBIN 8.3 g/dL (12.0-18.0); LYMPH # 1.2 K/uL (1.0-4.3); LYMPH % 16.3 % (20.0-40.0); MEAN CORPUSCULAR HEMOGLOBIN 30.8 pg (27.0-31.0); MEAN CORPUSCULAR HGB CONC 34.2 g/dL (33.0-37.0); MEAN PLATELET VOLUME 8.8 fL (7.2-11.7); MONO # 0.8 K/uL (0.0-0.8); MONO % 11.4 % (0.0-10.0); NEUT % 70.3 % (50.0-75.0); RBC 2.68 Mil/uL (4.40-5.90); RED CELL DISTRIBUTION WIDTH 22.7 % (11.5-14.5); WHITE BLOOD COUNT 7.1 K/uL (4.8-10.8)
[2017-07-24 09:19] LABS: ALB/GLOB RATIO 0.6 (1.0-2.1); ALBUMIN 2.1 g/dL (3.5-5.0); ALT/SGPT 28 U/L (21-72); AST/SGOT 74 U/L (17-59); BLOOD UREA NITROGEN 4 mg/dL (9-20); CALCIUM 7.1 mg/dl (8.6-10.4); GFR AFRICAN-AMERICAN > 60; GFR NON-AFRICAN AMERICAN > 60; MAGNESIUM 1.4 mg/dL (1.6-2.3)
[2017-07-24] MEDS ORDERED: Albumin Human 25% (12.5 gm/50 ml) IV ONE (10:14)
[2017-07-24] MEDS: Multiple Vitamins Tab PO SCH (11:00)
[2017-07-24] MEDS: Potassium Chloride 20 mEq ER Tab PO SCH ×2 (11:29→14:13)
[2017-07-24] MEDS: Thiamine 100 mg/ml Inj IV SCH (11:39)
[2017-07-24] MEDS: Magnesium Sulfate 1 gm in D5W 1 GM/100 ML BAG IVPB SCH ×2 (11:48→13:33)
[2017-07-24] MEDS ORDERED: Iodixanol 320 MG/ML 100 ML BOTTLE IV ONE (16:20)
--- NOTE | 2017-07-24 17:38 | CP.PCM.PN ---
<Amanda Whitley - Last Filed: 07/24/17 17:32> Subjective - Date & Time of Evaluation Date of Evaluation: 07/24/17 Time of Evaluation: 07:00 - Subjective Subjective: PGY1- Medicine Note- Dr. Huitron's patient Patient seen and examined at bedside and in no acute distress. Patient is much more alert and awake today. Patient is answering questions in Arabic. Patient says his abdominal pain is decreasing. Patient says he is still having diarrhea , but it is less watery and more formed now. Patient denies any shortness of breath, chest pain, nausea, or vomiting. When asked where patient is he gets quiet and doesn't answer. When asked what city we are in patient doesn't answer. Objective - Vital Signs/Intake and Output Vital Signs (last 24 hours): Temp Pulse Resp BP Pulse Ox 98.6 F 93 H 20 120/83 98 07/24/17 15:54 07/24/17 16:00 07/24/17 15:54 07/24/17 15:54 07/24/17 15:54 Intake and Output: 07/24/17 07/24/17 06:59 18:59 Intake Total 300 Balance 300 - Medications Medications: Current Medications Famotidine (Pepcid) 20 mg PO BID [facility] Last Admin: 07/24/17 17:27 Dose: 20 mg Folic Acid 1 mg/ Sodium (Chloride) 100.2 mls @ 60 mls/hr IV DAILY [facility] Last Admin: 07/24/17 11:25 Dose: 60 mls/hr Metronidazole (Flagyl) 500 mg in 100 mls @ 100 mls/hr IVPB Q8H [facility] Last Admin: 07/24/17 17:27 Dose: 100 mls/hr Ciprofloxacin (Cipro 400mg/200ml Dsw) 400 mg in 200 mls @ 133 mls/hr IVPB Q12H [facility] Last Admin: 07/24/17 14:07 Dose: 133 mls/hr Lorazepam (Ativan) 1 mg PO Q4H PRN PRN Reason: Anxiety Morphine Sulfate (Morphine) 1 mg IVP Q6H PRN PRN Reason: Pain, severe (8-10) Last Admin: 07/23/17 19:35 Dose: 1 mg Multivitamins (Hexavitamin) 1 tab PO DAILY [facility] Last Admin: 07/24/17 11:00 Dose: 1 tab Nicotine (Nicoderm Cq) 1 patch TD DAILY [facility] Last Admin: 07/24/17 11:00 Dose: 1 patch Phytonadione (Vitamin K Inj) 10 mg SC ONCE [facility] Rifaximin (Xifaxan) 550 mg PO BID [facility] Last Admin: 07/24/17 17:27 Dose: 550 mg Thiamine HCl (Vitamin B1 Inj) 100 mg IV DAILY [facility] Last Admin: 07/24/17 11:39 Dose: 100 mg Trazodone HCl (Desyrel) 50 mg PO HS [facility] Last Admin: 07/23/17 22:03 Dose: 50 mg - Labs Labs: 07/24/17 08:39 07/24/17 08:37 PT 23.0 SECONDS (9.7-12.2) H 07/24/17 08:39 INR 2.0 07/24/17 08:39 APTT 34 SECONDS (21-34) 07/18/17 13:52 - Constitutional Appears: Non-toxic, No Acute Distress - Head Exam Head Exam: ATRAUMATIC, NORMAL INSPECTION, NORMOCEPHALIC - Eye Exam Eye Exam: EOMI, Normal appearance - ENT Exam ENT Exam: Mucous Membranes Moist - Respiratory Exam Respiratory Exam: Clear to Ausculation Bilateral, NORMAL BREATHING PATTERN. absent: Rales, Rhonchi, Wheezes, Respiratory Distress, Stridor - Cardiovascular Exam Cardiovascular Exam: Tachycardia, REGULAR RHYTHM, +S1, +S2 - GI/Abdominal Exam GI & Abdominal Exam: Distended, Soft, Normal Bowel Sounds. absent: Tenderness - Extremities Exam Extremities Exam: Normal Inspection. absent: Pedal Edema, Tenderness - Neurological Exam Neurological Exam: Alert, Awake. absent: Oriented x3 - Psychiatric Exam Psychiatric exam: Normal Affect, Normal Mood - Skin Skin Exam: Intact, Normal Color, Warm Assessment and Plan - Assessment and Plan (Free Text) Assessment: 1.Colitis and Diarrhea No leukocytosis, afebrile giardia negative, stool ova and parasite negative, stool culture negative blood culture negative negative HIV and hep panel fecal fat study: normal c dif neg x 2, f/u 3rd c dif Imaging: CT abd/pelvis with IV contrast 07/17: Significant bowel wall thickening involving the colon, appearance most consistent with acute colitis, cannot exclude underlying neoplasm. Small to moderate ascites. Fatty infiltration of the liver. Heterogeneous appearance to hepatic parenchyma. Some of appearance may be due to transient hepatic attenuation differences, concern for underlying lesion. Meds: Cipro 400 IV daily Flagyl 500 IV Q8 patient to get colonoscopy once consent is obtained: Toby Peng () - ; Luis (friend) - [phone] 2.Alcohol abuse/alcohol intoxication/alcohol withdrawal Elevated serum alcohol on admission 292 Seizure and aspiration precautions Ativan taper Thiamine 100 mg daily Folic acid 1 mg daily Psych consult, Dr. Man, help appreciated 3. Ascites and hepatic encephalopathy Consult GI, Dr South CT abd/pelvis shows small to moderate ascites Paracentesis done today 07/19/17 with 2.1 L straw colored fluid removed. 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 Tran help appreciated stool occult blood negative 6.Tobacco use disorder Nicotine patch 7 .S/P Urinary Retention condom catheter monitor urine output 7.Prophylactic Measure/supportive care Pepcid 20mg po BID SCDs IV fluids <Ruth Huitron - Last Filed: 07/24/17 18:45> Objective - Vital Signs/Intake and Output Vital Signs (last 24 hours): Temp Pulse Resp BP Pulse Ox 98.6 F 93 H 20 120/83 98 07/24/17 15:54 07/24/17 16:00 07/24/17 15:54 07/24/17 15:54 07/24/17 15:54 Intake and Output: 07/24/17 07/24/17 06:59 18:59 Intake Total 300 Balance 300 - Medications Medications: Current Medications Famotidine (Pepcid) 20 mg PO BID [facility] Last Admin: 07/24/17 17:27 Dose: 20 mg Folic Acid 1 mg/ Sodium (Chloride) 100.2 mls @ 60 mls/hr IV DAILY [facility] Last Admin: 07/24/17 11:25 Dose: 60 mls/hr Metronidazole (Flagyl) 500 mg in 100 mls @ 100 mls/hr IVPB Q8H [facility] Last Admin: 07/24/17 17:27 Dose: 100 mls/hr Ciprofloxacin (Cipro 400mg/200ml Dsw) 400 mg in 200 mls @ 133 mls/hr IVPB Q12H [facility] Last Admin: 07/24/17 14:07 Dose: 133 mls/hr Lorazepam (Ativan) 1 mg PO Q4H PRN PRN Reason: Anxiety Morphine Sulfate (Morphine) 1 mg IVP Q6H PRN PRN Reason: Pain, severe (8-10) Last Admin: 07/23/17 19:35 Dose: 1 mg Multivitamins (Hexavitamin) 1 tab PO DAILY [facility] Last Admin: 07/24/17 11:00 Dose: 1 tab Nicotine (Nicoderm Cq) 1 patch TD DAILY [facility] Last Admin: 07/24/17 11:00 Dose: 1 patch Phytonadione (Vitamin K Inj) 10 mg SC ONCE [facility] Rifaximin (Xifaxan) 550 mg PO BID [facility] Last Admin: 07/24/17 17:27 Dose: 550 mg Thiamine HCl (Vitamin B1 Inj) 100 mg IV DAILY [facility] Last Admin: 07/24/17 11:39 Dose: 100 mg Trazodone HCl (Desyrel) 50 mg PO HS [facility] Last Admin: 07/23/17 22:03 Dose: 50 mg - Labs Labs: 07/24/17 08:39 07/24/17 08:37 PT 23.0 SECONDS (9.7-12.2) H 07/24/17 08:39 INR 2.0 07/24/17 08:39 APTT 34 SECONDS (21-34) 07/18/17 13:52 Attending/Attestation - Attestation I have personally seen and examined this patient.: Yes I have fully participated in the care of the patient.: Yes I have reviewed all pertinent clinical information, including history, physical exam and plan: Yes Notes (Text): Seen and examined feels better today,alert and oriented.Oriented to person,not place and time Unable to reach his .Spoke to his friend.He is coming to see him tomorrow.He wants to help.As per his friend pt doesn't have good relationship with his .He is planning to go back to [place] [facility] () - [phone] Luis (friend) - [phone] d/w resident I agree with the assessment and the plan of the resident
[2017-07-25] MEDS: Ciprofloxacin 400mg/200ml D5W 400 MG/200 ML BAG IVPB SCH ×2 (01:04→13:55)
--- NOTE | 2017-07-25 08:03 | CP.PCM.PN ---
Subjective - Date & Time of Evaluation Date of Evaluation: 07/25/17 Time of Evaluation: 07:00 - Subjective Subjective: PGY1- Medicine Note- Dr. Tony's service Patient seen and examined at bedside and in no acute distress. Patient is alert and awake today and explains his abdominal pain is less. Patient says he only had 5 episodes of soft stools yesterday and that his diarrhea is getting better. Patient is using the urinal instead of the condom catheter today. Patient understands he may be going for a colonoscopy today. Patient told his friend was going to come today and had little response. Patient told he would need to sign a consent for the colonoscopy and he agreed. Patient told he would first have to answer some questions to which he said he did not want to answer more questions and became quite. Patient unable to state which city he is in, but says he is at [facility]. Patient able to state his birthday. Patient denies any chest pain, shortness of breath, nausea, or vomiting. Objective - Vital Signs/Intake and Output Vital Signs (last 24 hours): Temp Pulse Resp BP Pulse Ox 98.4 F 99 H 20 121/78 99 07/24/17 23:31 07/24/17 23:57 07/24/17 23:31 07/24/17 23:31 07/24/17 23:31 - Medications Medications: Current Medications Famotidine (Pepcid) 20 mg PO BID [facility] Last Admin: 07/24/17 17:27 Dose: 20 mg Folic Acid 1 mg/ Sodium (Chloride) 100.2 mls @ 60 mls/hr IV DAILY [facility] Last Admin: 07/24/17 11:25 Dose: 60 mls/hr Metronidazole (Flagyl) 500 mg in 100 mls @ 100 mls/hr IVPB Q8H [facility] Last Admin: 07/24/17 23:05 Dose: 100 mls/hr Ciprofloxacin (Cipro 400mg/200ml Dsw) 400 mg in 200 mls @ 133 mls/hr IVPB Q12H [facility] Last Admin: 07/25/17 01:04 Dose: 133 mls/hr Lorazepam (Ativan) 1 mg PO Q4H PRN PRN Reason: Anxiety Morphine Sulfate (Morphine) 1 mg IVP Q6H PRN PRN Reason: Pain, severe (8-10) Last Admin: 07/23/17 19:35 Dose: 1 mg Multivitamins (Hexavitamin) 1 tab PO DAILY [facility] Last Admin: 07/24/17 11:00 Dose: 1 tab Nicotine (Nicoderm Cq) 1 patch TD DAILY [facility] Last Admin: 07/24/17 11:00 Dose: 1 patch Phytonadione (Vitamin K Inj) 10 mg SC ONCE [facility] Rifaximin (Xifaxan) 550 mg PO BID [facility] Last Admin: 07/24/17 17:27 Dose: 550 mg Thiamine HCl (Vitamin B1 Inj) 100 mg IV DAILY [facility] Last Admin: 07/24/17 11:39 Dose: 100 mg Trazodone HCl (Desyrel) 50 mg PO HS [facility] Last Admin: 07/24/17 21:22 Dose: 50 mg - Labs Labs: 07/24/17 08:39 07/24/17 08:37 PT 23.0 SECONDS (9.7-12.2) H 07/24/17 08:39 INR 2.0 07/24/17 08:39 APTT 34 SECONDS (21-34) 07/18/17 13:52 - Additional Findings Additional findings: - Constitutional Appears: Non-toxic, No Acute Distress - Head Exam Head Exam: ATRAUMATIC, NORMAL INSPECTION, NORMOCEPHALIC - Eye Exam Eye Exam: EOMI, Normal appearance - ENT Exam ENT Exam: Mucous Membranes Moist - Respiratory Exam Respiratory Exam: Clear to Ausculation Bilateral, NORMAL BREATHING PATTERN. absent: Rales, Rhonchi, Wheezes, Respiratory Distress, Stridor - Cardiovascular Exam Cardiovascular Exam: Tachycardia, REGULAR RHYTHM, +S1, +S2 - GI/Abdominal Exam GI & Abdominal Exam: Distended, Soft, Normal Bowel Sounds. absent: Tenderness - Extremities Exam Extremities Exam: Normal Inspection. absent: Pedal Edema, Tenderness - Neurological Exam Neurological Exam: Alert, Awake. absent: Oriented x3 - Psychiatric Exam Psychiatric exam: Normal Affect, Normal Mood - Skin Skin Exam: Intact, Normal Color, Warm Assessment and Plan - Assessment and Plan (Free Text) Assessment: 1.Colitis and Diarrhea No leukocytosis, afebrile giardia negative, stool ova and parasite negative, stool culture negative blood culture negative negative HIV and hep panel fecal fat study: normal c dif neg x 3 Imaging: CT abd/pelvis with IV contrast 07/17: Significant bowel wall thickening involving the colon, appearance most consistent with acute colitis, cannot exclude underlying neoplasm. Small to moderate ascites. Fatty infiltration of the liver. Heterogeneous appearance to hepatic parenchyma. Some of appearance may be due to transient hepatic attenuation differences, concern for underlying lesion. Meds: Cipro 400 IV daily Flagyl 500 IV Q8 patient to get colonoscopy once consent is obtained: Toby Peng () - [phone]; Luis (friend) - [phone] 2.Alcohol abuse/alcohol intoxication/alcohol withdrawal Elevated serum alcohol on admission 292 Seizure and aspiration precautions Ativan taper Thiamine 100 mg daily Folic acid 1 mg daily Psych consult, Dr. Man, help appreciated 3. Ascites and hepatic encephalopathy Consult GI, Dr South CT abd/pelvis shows small to moderate ascites Paracentesis done today 07/19/17 with 2.1 L straw colored fluid removed. 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 Tran help appreciated stool occult blood negative 6.Tobacco use disorder Nicotine patch 7 .S/P Urinary Retention patient urinating in urinal today monitor urine output 7.Prophylactic Measure/supportive care Pepcid 20mg po BID SCDs IV fluids
[2017-07-25] MEDS: metroNIDAZOLE IV 500 mg/100 ml 500 MG/100 ML BAG IVPB SCH ×2 (08:37→16:50)
--- NOTE | 2017-07-25 09:59 | CP.PCM.PN ---
Subjective - Date & Time of Evaluation Date of Evaluation: 07/25/17 Time of Evaluation: 09:56 - Subjective Subjective: No new complaints. Objective - Vital Signs/Intake and Output Vital Signs (last 24 hours): Temp Pulse Resp BP Pulse Ox 98.4 F 95 H 20 121/78 99 07/24/17 23:31 07/25/17 07:45 07/24/17 23:31 07/24/17 23:31 07/24/17 23:31 - Medications Medications: Current Medications Famotidine (Pepcid) 20 mg PO BID [facility] Last Admin: 07/24/17 17:27 Dose: 20 mg Folic Acid 1 mg/ Sodium (Chloride) 100.2 mls @ 60 mls/hr IV DAILY [facility] Last Admin: 07/24/17 11:25 Dose: 60 mls/hr Metronidazole (Flagyl) 500 mg in 100 mls @ 100 mls/hr IVPB Q8H [facility] Last Admin: 07/25/17 08:37 Dose: 100 mls/hr Ciprofloxacin (Cipro 400mg/200ml Dsw) 400 mg in 200 mls @ 133 mls/hr IVPB Q12H [facility] Last Admin: 07/25/17 01:04 Dose: 133 mls/hr Lorazepam (Ativan) 1 mg PO Q4H PRN PRN Reason: Anxiety Morphine Sulfate (Morphine) 1 mg IVP Q6H PRN PRN Reason: Pain, severe (8-10) Last Admin: 07/23/17 19:35 Dose: 1 mg Multivitamins (Hexavitamin) 1 tab PO DAILY [facility] Last Admin: 07/24/17 11:00 Dose: 1 tab Nicotine (Nicoderm Cq) 1 patch TD DAILY [facility] Last Admin: 07/24/17 11:00 Dose: 1 patch Phytonadione (Vitamin K Inj) 10 mg SC ONCE [facility] Phytonadione (Vitamin K Inj) 10 mg SC ONCE ONE Stop: 07/25/17 10:01 Rifaximin (Xifaxan) 550 mg PO BID [facility] Last Admin: 07/24/17 17:27 Dose: 550 mg Thiamine HCl (Vitamin B1 Inj) 100 mg IV DAILY [facility] Last Admin: 07/24/17 11:39 Dose: 100 mg Trazodone HCl (Desyrel) 50 mg PO HS [facility] Last Admin: 07/24/17 21:22 Dose: 50 mg - Labs Labs: 07/24/17 08:39 07/24/17 08:37 PT 23.0 SECONDS (9.7-12.2) H 07/24/17 08:39 INR 2.0 07/24/17 08:39 APTT 34 SECONDS (21-34) 07/18/17 13:52 - Constitutional Appears: No Acute Distress - Head Exam Head Exam: ATRAUMATIC, NORMOCEPHALIC - Neck Exam Neck Exam: absent: Lymphadenopathy, Thyromegaly - Respiratory Exam Respiratory Exam: NORMAL BREATHING PATTERN. absent: Rales, Rhonchi, Wheezes - Cardiovascular Exam Cardiovascular Exam: REGULAR RHYTHM, +S1, +S2. absent: Gallop, Rubs, Murmur - GI/Abdominal Exam GI & Abdominal Exam: Distended, Soft, Normal Bowel Sounds. absent: Tenderness, Organomegaly - Rectal Exam Rectal Exam: Deferred - Extremities Exam Extremities Exam: absent: Calf Tenderness, Pedal Edema Assessment and Plan (1) Alcoholic hepatitis Assessment & Plan: Bilirubin and AST continue to improve, now 3.7 and 74, respectively. Coagulopathy is also slightly better after vitamin K, PT 23, INR 2.0, down from 27.3, INR 2.4. Continue to follow LFTs. Will need a formal evaluation of patient's competence to give informed consent. Status: Acute (2) Diarrhea Status: Acute (3) Ascites Assessment & Plan: SAAG is 2.0 (2.5-0.5), consistent with portal hypertension. The cell count is not suggestive of SBP. Status: Acute
[2017-07-25] MEDS ORDERED: Phytonadione 10 mg/ml Inj (Adult) SC ONE (10:00)
[2017-07-25] MEDS: Multiple Vitamins Tab PO SCH (10:12)
[2017-07-25 10:13] LABS: BASO # 0.1 K/uL (0.0-0.2); BASO % 0.8 % (0.0-2.0); EOS % 0.3 % (0.0-4.0); HEMOGLOBIN 8.3 g/dL (12.0-18.0); LYMPH # 1.8 K/uL (1.0-4.3); LYMPH % 19.8 % (20.0-40.0); MEAN CELL VOLUME 91.7 fL (80.0-94.0); MEAN CORPUSCULAR HEMOGLOBIN 29.7 pg (27.0-31.0); MEAN CORPUSCULAR HGB CONC 32.4 g/dL (33.0-37.0); MEAN PLATELET VOLUME 8.6 fL (7.2-11.7); MONO # 1.3 K/uL (0.0-0.8); MONO % 14.3 % (0.0-10.0); NEUT # 5.9 K/uL (1.8-7.0); NEUT % 64.8 % (50.0-75.0); NRBC % 0.1 % (0.0-2.0); RBC 2.81 Mil/uL (4.40-5.90); WHITE BLOOD COUNT 9.1 K/uL (4.8-10.8)
[2017-07-25] MEDS: Thiamine 100 mg/ml Inj IV SCH (10:16)
[2017-07-25 10:17] LABS: PROTHROMBIN TIME 22.8 SECONDS (9.7-12.2)
[2017-07-25 11:07] LABS: ALB/GLOB RATIO 0.7 (1.0-2.1); ALBUMIN 2.3 g/dL (3.5-5.0); ALT/SGPT 28 U/L (21-72); AST/SGOT 77 U/L (17-59); BLOOD UREA NITROGEN 5 mg/dL (9-20); CALCIUM 7.1 mg/dl (8.6-10.4); GFR AFRICAN-AMERICAN > 60; GFR NON-AFRICAN AMERICAN > 60; MAGNESIUM 1.4 mg/dL (1.6-2.3)
[2017-07-26] MEDS: metroNIDAZOLE IV 500 mg/100 ml 500 MG/100 ML BAG IVPB SCH ×3 (00:10→16:29)
[2017-07-26] MEDS: Ciprofloxacin 400mg/200ml D5W 400 MG/200 ML BAG IVPB SCH ×2 (02:04→13:38)
[2017-07-26 08:23] LABS: BASO # 0.1 K/uL (0.0-0.2); BASO % 1.3 % (0.0-2.0); EOS % 0.2 % (0.0-4.0); HEMOGLOBIN 8.9 g/dL (12.0-18.0); LYMPH # 1.3 K/uL (1.0-4.3); LYMPH % 16.6 % (20.0-40.0); MEAN CELL VOLUME 91.2 fL (80.0-94.0); MEAN CORPUSCULAR HGB CONC 32.9 g/dL (33.0-37.0); NEUT # 5.6 K/uL (1.8-7.0); NEUT % 69.9 % (50.0-75.0); NRBC % 0.1 % (0.0-2.0); RBC 2.95 Mil/uL (4.40-5.90); RED CELL DISTRIBUTION WIDTH 22.6 % (11.5-14.5)
[2017-07-26 08:28] LABS: INR 1.9; PROTHROMBIN TIME 21.9 SECONDS (9.7-12.2)
--- NOTE | 2017-07-26 08:49 | PCM.PYCHPN ---
Psychiatric Progress Note - Psychiatric Progress Note Patient seen today, length of contact: 17 min Patient Chief Complaint: "Pain in my stomach" Problems Identified/Issues Discussed: Seen with a staff cruise staff member. Not as confused: "Kamlesh... Hesham...2016..?" close mistakes Calm and cooperative Knows his illness but minimizes alcoholism. Agrees with treatment though Not delusional but had AH during his delirium Wdw sxs under control Not depressed, not suicidal Currently he has the capacity to make decisions Medication Change: No Medical Record Reviewed: Yes Mental Status Examination - Cognitive Function Orientation: Person, Place, Situation, Time Memory: Intact Attention: Poor Concentration: Poor Association: WNL Fund of Knowledge: Poor - Mood Mood: Neutral - Affect Affect: Constricted - Speech Speech: Soft (mumbling) - Formal Thought Process Formal Thought Process: No Impairment - Suicidal Ideation Suicidal Ideation: No - Homicidal Ideation Homicidal Ideation: No Goal/Treatment Plan - Goal/Treatment Plan Need for Continued Stay: Other (medical) Progress Toward Problem(s) and Goals/Treatment Plan: Continue supportive tx SW can refer him to [facility] in [place] when he is medically cleared, or if rejected by , he can go to [facility] on [facility] and stay in a halfway Psych will sign off
[2017-07-26 09:01] LABS: ALB/GLOB RATIO 0.7 (1.0-2.1); ALBUMIN 2.5 g/dL (3.5-5.0); ALT/SGPT 30 U/L (21-72); AST/SGOT 103 U/L (17-59); BLOOD UREA NITROGEN 6 mg/dL (9-20); CALCIUM 7.1 mg/dl (8.6-10.4); GFR AFRICAN-AMERICAN > 60; GFR NON-AFRICAN AMERICAN > 60; MAGNESIUM 1.2 mg/dL (1.6-2.3)
[2017-07-26] MEDS: Thiamine 100 mg/ml Inj IV SCH (10:44)
[2017-07-26] MEDS: Multiple Vitamins Tab PO SCH (10:44)
--- NOTE | 2017-07-26 11:12 | CP.PCM.PN ---
Subjective - Date & Time of Evaluation Date of Evaluation: 07/26/17 Time of Evaluation: 11:07 - Subjective Subjective: Patient continues to complain of abdominal pain and diarrhea. Weights have not been charted with I and O. Objective - Vital Signs/Intake and Output Vital Signs (last 24 hours): Temp Pulse Resp BP Pulse Ox 98.4 F 100 H 18 107/70 98 07/26/17 08:00 07/26/17 08:00 07/26/17 08:00 07/26/17 10:45 07/26/17 08:00 Intake and Output: 07/26/17 07/26/17 06:59 18:59 Intake Total 800 Output Total 450 Balance 350 - Medications Medications: Current Medications Famotidine (Pepcid) 20 mg PO BID [facility] Last Admin: 07/26/17 10:44 Dose: 20 mg Furosemide (Lasix) 40 mg PO DAILY [facility] Last Admin: 07/26/17 10:45 Dose: 40 mg Folic Acid 1 mg/ Sodium (Chloride) 100.2 mls @ 60 mls/hr IV DAILY [facility] Last Admin: 07/25/17 10:16 Dose: 60 mls/hr Metronidazole (Flagyl) 500 mg in 100 mls @ 100 mls/hr IVPB Q8H [facility] Last Admin: 07/26/17 08:02 Dose: 100 mls/hr Ciprofloxacin (Cipro 400mg/200ml Dsw) 400 mg in 200 mls @ 133 mls/hr IVPB Q12H [facility] Last Admin: 07/26/17 02:04 Dose: 133 mls/hr Lorazepam (Ativan) 1 mg PO Q4H PRN PRN Reason: Anxiety Morphine Sulfate (Morphine) 1 mg IVP Q6H PRN PRN Reason: Pain, severe (8-10) Last Admin: 07/23/17 19:35 Dose: 1 mg Multivitamins (Hexavitamin) 1 tab PO DAILY [facility] Last Admin: 07/26/17 10:44 Dose: 1 tab Nicotine (Nicoderm Cq) 1 patch TD DAILY [facility] Last Admin: 07/26/17 10:44 Dose: 1 patch Phytonadione (Vitamin K Inj) 10 mg SC ONCE [facility] Phytonadione (Vitamin K Tab) 5 mg PO DAILY [facility] Rifaximin (Xifaxan) 550 mg PO BID [facility] Last Admin: 07/26/17 10:44 Dose: 550 mg Spironolactone (Aldactone) 25 mg PO BID [facility] Last Admin: 07/26/17 10:43 Dose: 25 mg Thiamine HCl (Vitamin B1 Inj) 100 mg IV DAILY [facility] Last Admin: 07/26/17 10:44 Dose: 100 mg Trazodone HCl (Desyrel) 50 mg PO HS [facility] Last Admin: 07/25/17 21:34 Dose: 50 mg - Labs Labs: 07/26/17 08:16 07/26/17 08:16 PT 21.9 SECONDS (9.7-12.2) H 07/26/17 08:16 INR 1.9 07/26/17 08:16 APTT 34 SECONDS (21-34) 07/18/17 13:52 - Constitutional Appears: No Acute Distress - Neck Exam Neck Exam: absent: Lymphadenopathy, Thyromegaly - Respiratory Exam Respiratory Exam: NORMAL BREATHING PATTERN. absent: Rales, Rhonchi, Wheezes - Cardiovascular Exam Cardiovascular Exam: REGULAR RHYTHM, +S1, +S2. absent: Gallop, Rubs, Murmur - GI/Abdominal Exam GI & Abdominal Exam: Distended, Soft, Normal Bowel Sounds. absent: Tenderness - Rectal Exam Rectal Exam: Deferred - Extremities Exam Extremities Exam: absent: Calf Tenderness, Pedal Edema Assessment and Plan (1) Alcoholic hepatitis Assessment & Plan: Bilirubin continues to decline, now 3.4, compared to maximal value of 6.1 last week. There has been slight improvement in PT which is now 21.9, INR 1.9, compared to maximal value of 27.3 with INR 2.4. Plan to follow LFTs and PT. Status: Acute (2) Diarrhea Assessment & Plan: Patient continues to complain of diarrhea, and nurses notes indicate 5 bowel movements yesterday. Stool analysis has been non-diagnostic. Plan is for colonoscopy on . Status: Acute (3) Ascites Assessment & Plan: Abdomen seems more distended. Check daily weights. EGD to rule out esophageal varices. Check urine sodium. Consider repeat paracentesis. Status: Acute
[2017-07-26] MEDS ORDERED: Sodium Chloride 0.9% 500 ML IV ONE (17:11)
--- NOTE | 2017-07-26 17:32 | CP.PCM.PN ---
Subjective - Date & Time of Evaluation Date of Evaluation: 07/26/17 Time of Evaluation: 07:00 - Subjective Subjective: PGY1- Medicine Note- Dr. Tony's service Patient seen and examined at bedside and in no acute distress. Patient is alert and awake today and explains his abdominal pain is less. Patient thinks his diarrhea is decreasing. Patient has abdominal pain and distention. Patient denies any chest pain, shortness of breath, nausea, or vomiting. Objective - Vital Signs/Intake and Output Vital Signs (last 24 hours): Temp Pulse Resp BP Pulse Ox 99.6 F 109 H 20 100/66 97 07/26/17 16:18 07/26/17 16:18 07/26/17 16:18 07/26/17 16:18 07/26/17 16:18 Intake and Output: 07/26/17 07/26/17 06:59 18:59 Intake Total 800 Output Total 450 Balance 350 - Medications Medications: Current Medications Famotidine (Pepcid) 20 mg PO BID [facility] Last Admin: 07/26/17 10:44 Dose: 20 mg Furosemide (Lasix) 40 mg PO DAILY [facility] Last Admin: 07/26/17 10:45 Dose: 40 mg Folic Acid 1 mg/ Sodium (Chloride) 100.2 mls @ 60 mls/hr IV DAILY [facility] Last Admin: 07/26/17 11:52 Dose: 60 mls/hr Metronidazole (Flagyl) 500 mg in 100 mls @ 100 mls/hr IVPB Q8H [facility] Last Admin: 07/26/17 16:29 Dose: 100 mls/hr Ciprofloxacin (Cipro 400mg/200ml Dsw) 400 mg in 200 mls @ 133 mls/hr IVPB Q12H [facility] Last Admin: 07/26/17 13:38 Dose: 133 mls/hr Sodium Chloride (Sodium Chloride 0.9%) 500 mls @ 1,000 mls/hr IV .Q30M ONE Stop: 07/26/17 17:40 Lorazepam (Ativan) 1 mg PO Q4H PRN PRN Reason: Anxiety Morphine Sulfate (Morphine) 1 mg IVP Q6H PRN PRN Reason: Pain, severe (8-10) Last Admin: 07/23/17 19:35 Dose: 1 mg Multivitamins (Hexavitamin) 1 tab PO DAILY [facility] Last Admin: 07/26/17 10:44 Dose: 1 tab Nicotine (Nicoderm Cq) 1 patch TD DAILY [facility] Last Admin: 07/26/17 10:44 Dose: 1 patch Phytonadione (Vitamin K Tab) 5 mg PO DAILY [facility] Stop: 07/30/17 10:01 Last Admin: 07/26/17 13:37 Dose: 5 mg Rifaximin (Xifaxan) 550 mg PO BID [facility] Last Admin: 07/26/17 10:44 Dose: 550 mg Simethicone (Mylicon Chew Tab) 80 mg PO BID [facility] Spironolactone (Aldactone) 25 mg PO BID [facility] Last Admin: 07/26/17 10:43 Dose: 25 mg Thiamine HCl (Vitamin B1 Inj) 100 mg IV DAILY [facility] Last Admin: 07/26/17 10:44 Dose: 100 mg Trazodone HCl (Desyrel) 50 mg PO HS [facility] Last Admin: 07/25/17 21:34 Dose: 50 mg - Labs Labs: 07/26/17 08:16 07/26/17 08:16 PT 21.9 SECONDS (9.7-12.2) H 07/26/17 08:16 INR 1.9 07/26/17 08:16 APTT 34 SECONDS (21-34) 07/18/17 13:52 - Additional Findings Additional findings: - Constitutional Appears: Non-toxic, No Acute Distress - Head Exam Head Exam: ATRAUMATIC, NORMAL INSPECTION, NORMOCEPHALIC - Eye Exam Eye Exam: EOMI, Normal appearance - ENT Exam ENT Exam: Mucous Membranes Moist - Respiratory Exam Respiratory Exam: Clear to Ausculation Bilateral, NORMAL BREATHING PATTERN. absent: Rales, Rhonchi, Wheezes, Respiratory Distress, Stridor - Cardiovascular Exam Cardiovascular Exam: Tachycardia, REGULAR RHYTHM, +S1, +S2 - GI/Abdominal Exam GI & Abdominal Exam: Distended, Soft, Normal Bowel Sounds. absent: Tenderness - Extremities Exam Extremities Exam: Normal Inspection. absent: Pedal Edema, Tenderness - Neurological Exam Neurological Exam: Alert, Awake. absent: Oriented x3 - Psychiatric Exam Psychiatric exam: Normal Affect, Normal Mood - Skin Skin Exam: Intact, Normal Color, Warm Assessment and Plan - Assessment and Plan (Free Text) Assessment: 1.Colitis and Diarrhea No leukocytosis, afebrile giardia negative, stool ova and parasite negative, stool culture negative blood culture negative negative HIV and hep panel fecal fat study: normal c dif neg x 3 Imaging: CT abd/pelvis with IV contrast 07/17: Significant bowel wall thickening involving the colon, appearance most consistent with acute colitis, cannot exclude underlying neoplasm. Small to moderate ascites. Fatty infiltration of the liver. Heterogeneous appearance to hepatic parenchyma. Some of appearance may be due to transient hepatic attenuation differences, concern for underlying lesion. Meds: Cipro 400 IV daily Flagyl 500 IV Q8 patient to get colonoscopy on 07/28/17 2.Alcohol abuse/alcohol intoxication/alcohol withdrawal Elevated serum alcohol on admission 292 Seizure and aspiration precautions Ativan taper Thiamine 100 mg daily Folic acid 1 mg daily Psych consult, Dr. Man, help appreciated 3. Ascites and hepatic encephalopathy Consult GI, Dr South CT abd/pelvis shows small to moderate ascites Paracentesis done today 07/19/17 with 2.1 L straw colored fluid removed. 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 Tran help appreciated stool occult blood negative 6.Tobacco use disorder Nicotine patch 7 .S/P Urinary Retention patient urinating in urinal today monitor urine output 8. Elevated INR trending down Vitamin K 5mg po daily continue to monitor 9.Prophylactic Measure/supportive care Pepcid 20mg po BID SCDs IV fluids
[2017-07-26] MEDS: Simethicone 80 mg Chewtab PO SCH (18:25)
[2017-07-27] MEDS: metroNIDAZOLE IV 500 mg/100 ml 500 MG/100 ML BAG IVPB SCH ×3 (00:47→18:48)
[2017-07-27] MEDS: Ciprofloxacin 400mg/200ml D5W 400 MG/200 ML BAG IVPB SCH ×2 (03:00→19:53)
--- NOTE | 2017-07-27 06:22 | CP.PCM.PN ---
Subjective - Date & Time of Evaluation Date of Evaluation: 07/27/17 Time of Evaluation: 07:00 - Subjective Subjective: PGY1- Medicine Note- Dr. Tony's service Patient seen and examined at bedside and in no acute distress. Patient is alert and awake today and explains his abdominal pain is less. Patient thinks his diarrhea is decreasing. Patient has abdominal pain and distention. Patient denies any chest pain, shortness of breath, nausea, or vomiting. Objective - Vital Signs/Intake and Output Vital Signs (last 24 hours): Temp Pulse Resp BP Pulse Ox 98.2 F 97 H 18 117/76 97 07/27/17 00:00 07/27/17 04:00 07/27/17 00:00 07/27/17 00:00 07/27/17 00:00 Intake and Output: 07/26/17 07/27/17 18:59 06:59 Intake Total 1100 Balance 1100 - Medications Medications: Current Medications Famotidine (Pepcid) 20 mg PO BID [facility] Last Admin: 07/26/17 18:25 Dose: 20 mg Furosemide (Lasix) 40 mg PO DAILY [facility] Last Admin: 07/26/17 10:45 Dose: 40 mg Folic Acid 1 mg/ Sodium (Chloride) 100.2 mls @ 60 mls/hr IV DAILY [facility] Last Admin: 07/26/17 11:52 Dose: 60 mls/hr Metronidazole (Flagyl) 500 mg in 100 mls @ 100 mls/hr IVPB Q8H [facility] Last Admin: 07/27/17 00:47 Dose: 100 mls/hr Ciprofloxacin (Cipro 400mg/200ml Dsw) 400 mg in 200 mls @ 133 mls/hr IVPB Q12H [facility] Last Admin: 07/27/17 03:00 Dose: 133 mls/hr Lorazepam (Ativan) 1 mg PO Q4H PRN PRN Reason: Anxiety Morphine Sulfate (Morphine) 1 mg IVP Q6H PRN PRN Reason: Pain, severe (8-10) Last Admin: 07/23/17 19:35 Dose: 1 mg Multivitamins (Hexavitamin) 1 tab PO DAILY [facility] Last Admin: 07/26/17 10:44 Dose: 1 tab Nicotine (Nicoderm Cq) 1 patch TD DAILY [facility] Last Admin: 07/26/17 10:44 Dose: 1 patch Phytonadione (Vitamin K Tab) 5 mg PO DAILY [facility] Stop: 07/30/17 10:01 Last Admin: 07/26/17 13:37 Dose: 5 mg Rifaximin (Xifaxan) 550 mg PO BID [facility] Last Admin: 07/26/17 18:25 Dose: 550 mg Simethicone (Mylicon Chew Tab) 80 mg PO BID [facility] Last Admin: 07/26/17 18:25 Dose: 80 mg Spironolactone (Aldactone) 25 mg PO BID [facility] Last Admin: 07/26/17 18:25 Dose: 25 mg Thiamine HCl (Vitamin B1 Inj) 100 mg IV DAILY [facility] Last Admin: 07/26/17 10:44 Dose: 100 mg Trazodone HCl (Desyrel) 50 mg PO [facility] Last Admin: 07/26/17 21:46 Dose: 50 mg - Labs Labs: 07/26/17 08:16 07/26/17 08:16 PT 21.9 SECONDS (9.7-12.2) H 07/26/17 08:16 INR 1.9 07/26/17 08:16 APTT 34 SECONDS (21-34) 07/18/17 13:52 - Additional Findings Additional findings: - Constitutional Appears: Non-toxic, No Acute Distress - Head Exam Head Exam: ATRAUMATIC, NORMAL INSPECTION, NORMOCEPHALIC - Eye Exam Eye Exam: EOMI, Normal appearance - ENT Exam ENT Exam: Mucous Membranes Moist - Respiratory Exam Respiratory Exam: Clear to Ausculation Bilateral, NORMAL BREATHING PATTERN. absent: Rales, Rhonchi, Wheezes, Respiratory Distress, Stridor - Cardiovascular Exam Cardiovascular Exam: Tachycardia, REGULAR RHYTHM, +S1, +S2 - GI/Abdominal Exam GI & Abdominal Exam: Distended, Soft, Normal Bowel Sounds. absent: Tenderness - Extremities Exam Extremities Exam: Normal Inspection. absent: Pedal Edema, Tenderness - Neurological Exam Neurological Exam: Alert, Awake. absent: Oriented x3 - Psychiatric Exam Psychiatric exam: Normal Affect, Normal Mood - Skin Skin Exam: Intact, Normal Color, Warm Assessment and Plan - Assessment and Plan (Free Text) Assessment: 1.Colitis and Diarrhea No leukocytosis, afebrile giardia negative, stool ova and parasite negative, stool culture negative blood culture negative negative HIV and hep panel fecal fat study: normal c dif neg x 3 Imaging: CT abd/pelvis with IV contrast 07/17: Significant bowel wall thickening involving the colon, appearance most consistent with acute colitis, cannot exclude underlying neoplasm. Small to moderate ascites. Fatty infiltration of the liver. Heterogeneous appearance to hepatic parenchyma. Some of appearance may be due to transient hepatic attenuation differences, concern for underlying lesion. Meds: Cipro 400 IV daily Flagyl 500 IV Q8 patient to get colonoscopy on 07/28/17 2.Alcohol abuse/alcohol intoxication/alcohol withdrawal Elevated serum alcohol on admission 292 Seizure and aspiration precautions Ativan taper Thiamine 100 mg daily Folic acid 1 mg daily Psych consult, Dr. Man, help appreciated 3. Ascites and hepatic encephalopathy Consult GI, Dr South CT abd/pelvis shows small to moderate ascites Paracentesis done today 07/19/17 with 2.1 L straw colored fluid removed. * peritoneal fluid no growth * Fluid WBC: 147, RBC: 216, neut: 41, lymph: 43, monocyte/macrophage: 15 Albumin 12.5 gm x 2 given on 07/21/17 ammonia level: increased to 64 on 07/22/17 Continue xifaxan 550mg po BID,not on lactulose due to diarrhea no paracentesis at this time started Lasix 40 mg po daily and Aldactone 25mg po BID on 07/25/17 4.Hypokalemia and Hypomagnesemia follow levels with supplementation Mg 1.1 on 07/27 K 2.5 on 07/27 5. 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 Tran help appreciated stool occult blood negative 6.Tobacco use disorder Nicotine patch 7 . S/P Urinary Retention patient urinating in urinal today monitor urine output 8. Elevated INR trending down Vitamin K 5mg po daily continue to monitor 9.Prophylactic Measure/supportive care Pepcid 20mg po BID SCDs IV fluids
[2017-07-27 08:33] LABS: BASO # 0.1 K/uL (0.0-0.2); BASO % 1.2 % (0.0-2.0); EOS % 0.2 % (0.0-4.0); HEMOGLOBIN 8.2 g/dL (12.0-18.0); LYMPH % 20.3 % (20.0-40.0); MEAN CELL VOLUME 90.4 fL (80.0-94.0); MEAN CORPUSCULAR HGB CONC 33.2 g/dL (33.0-37.0); MEAN PLATELET VOLUME 8.8 fL (7.2-11.7); MONO # 1.1 K/uL (0.0-0.8); NEUT # 6.5 K/uL (1.8-7.0); NEUT % 67.3 % (50.0-75.0); RBC 2.72 Mil/uL (4.40-5.90); RED CELL DISTRIBUTION WIDTH 22.3 % (11.5-14.5); WHITE BLOOD COUNT 9.7 K/uL (4.8-10.8)
[2017-07-27 08:37] LABS: INR 1.8; PROTHROMBIN TIME 21.3 SECONDS (9.7-12.2)
[2017-07-27] MEDS: Multiple Vitamins Tab PO SCH (09:37)
[2017-07-27] MEDS: Simethicone 80 mg Chewtab PO SCH ×2 (09:37→18:41)
[2017-07-27 10:06] LABS: ALB/GLOB RATIO 0.7 (1.0-2.1); ALBUMIN 2.4 g/dL (3.5-5.0); ALT/SGPT 27 U/L (21-72); AST/SGOT 112 U/L (17-59); BLOOD UREA NITROGEN 6 mg/dL (9-20); CALCIUM 6.9 mg/dl (8.6-10.4); GFR AFRICAN-AMERICAN > 60; GFR NON-AFRICAN AMERICAN > 60; MAGNESIUM 1.1 mg/dL (1.6-2.3)
[2017-07-27] MEDS: Magnesium Sulfate 1 gm in D5W 1 GM/100 ML BAG IVPB SCH ×3 (10:52→23:59)
[2017-07-27] MEDS ORDERED: Potassium Chloride 20 mEq ER Tab PO ONE (11:00)
[2017-07-27] MEDS: Potassium Chloride 20 mEq ER Tab PO SCH ×3 (11:46→23:42)
[2017-07-27] MEDS: Thiamine 100 mg/ml Inj IV SCH (12:59)
[2017-07-27] MEDS: Magnesium Oxide 400 mg Tab UD PO SCH ×2 (14:25→18:40)
[2017-07-27] MEDS ORDERED: Enoxaparin 40 mg Syringe SC ONE ×2 (17:25→18:30)
[2017-07-27] MEDS ORDERED: Peg-Electrolyte Oral Soln 4L (Golytely) PO ONE (18:00)
[2017-07-27 22:01] LABS: BLOOD UREA NITROGEN 5 mg/dL (9-20); CALCIUM 6.4 mg/dl (8.6-10.4); GFR AFRICAN-AMERICAN > 60; GFR NON-AFRICAN AMERICAN > 60; MAGNESIUM 1.4 mg/dL (1.6-2.3)
[2017-07-28] MEDS: metroNIDAZOLE IV 500 mg/100 ml 500 MG/100 ML BAG IVPB SCH ×3 (00:06→18:47)
[2017-07-28 01:19] LABS: STOOL SODIUM 57.5 mEq/L
[2017-07-28] MEDS ORDERED: Peg-Electrolyte Oral Soln 4L (Golytely) PO ONE (06:00)
[2017-07-28] MEDS: Magnesium Sulfate 1 gm in D5W 1 GM/100 ML BAG IVPB SCH (06:08)
[2017-07-28] MEDS: Ciprofloxacin 400mg/200ml D5W 400 MG/200 ML BAG IVPB SCH (06:09)
[2017-07-28 08:25] LABS: BASO # 0.1 K/uL (0.0-0.2); BASO % 0.7 % (0.0-2.0); EOS % 0.2 % (0.0-4.0); HEMOGLOBIN 8.2 g/dL (12.0-18.0); LYMPH # 1.2 K/uL (1.0-4.3); LYMPH % 13.8 % (20.0-40.0); MEAN CELL VOLUME 90.6 fL (80.0-94.0); MEAN CORPUSCULAR HEMOGLOBIN 30.4 pg (27.0-31.0); MEAN CORPUSCULAR HGB CONC 33.6 g/dL (33.0-37.0); MEAN PLATELET VOLUME 8.9 fL (7.2-11.7); MONO # 0.8 K/uL (0.0-0.8); MONO % 9.9 % (0.0-10.0); NEUT # 6.4 K/uL (1.8-7.0); NEUT % 75.4 % (50.0-75.0); NRBC % 0.1 % (0.0-2.0); RBC 2.69 Mil/uL (4.40-5.90); RED CELL DISTRIBUTION WIDTH 21.6 % (11.5-14.5); WHITE BLOOD COUNT 8.4 K/uL (4.8-10.8)
[2017-07-28 08:28] LABS: INR 1.8; PROTHROMBIN TIME 20.4 SECONDS (9.7-12.2)
[2017-07-28 08:56] LABS: ALB/GLOB RATIO 0.7 (1.0-2.1); ALBUMIN 2.4 g/dL (3.5-5.0); ALT/SGPT 36 U/L (21-72); AST/SGOT 122 U/L (17-59); BLOOD UREA NITROGEN 5 mg/dL (9-20); CALCIUM 7.1 mg/dl (8.6-10.4); GFR AFRICAN-AMERICAN > 60; GFR NON-AFRICAN AMERICAN > 60; MAGNESIUM 1.8 mg/dL (1.6-2.3)
[2017-07-28] MEDS: Magnesium Oxide 400 mg Tab UD PO SCH ×2 (10:07→18:50)
[2017-07-28] MEDS: Multiple Vitamins Tab PO SCH (10:08)
[2017-07-28] MEDS: Thiamine 100 mg/ml Inj IV SCH (10:09)
[2017-07-28] MEDS: Simethicone 80 mg Chewtab PO SCH ×2 (12:03→18:47)
[2017-07-28] MEDS ORDERED: Lactated Ringer's 1,000 ML IV ONE (13:15)
[2017-07-28] MEDS ORDERED: Propofol 10 mg/ml Inj (20 ML) ONE ×3 (13:20→13:38)
--- NOTE | 2017-07-28 15:01 | CP.PCM.PN ---
Subjective - Date & Time of Evaluation Date of Evaluation: 07/28/17 Time of Evaluation: 07:00 - Subjective Subjective: PGY1- Medicine Note- Dr. Tony's service Patient seen and examined at bedside and in no acute distress. Patient is alert and awake today. Patient is having difficulty with drinking all of his [place] for his endoscopy and colonoscopy. Patient denies any chest pain, shortness of breath, nausea, or vomiting. Objective - Vital Signs/Intake and Output Vital Signs (last 24 hours): Temp Pulse Resp BP Pulse Ox 98.4 F 81 18 102/70 100 07/28/17 14:45 07/28/17 14:45 07/28/17 14:45 07/28/17 14:45 07/28/17 14:45 Intake and Output: 07/28/17 07/28/17 06:59 18:59 Intake Total 900 Balance 900 - Medications Medications: Current Medications Famotidine (Pepcid) 20 mg PO BID [facility] Last Admin: 07/28/17 12:02 Dose: 20 mg Furosemide (Lasix) 40 mg PO DAILY [facility] Last Admin: 07/28/17 10:08 Dose: Not Given Folic Acid 1 mg/ Sodium (Chloride) 100.2 mls @ 60 mls/hr IV DAILY [facility] Last Admin: 07/28/17 11:40 Dose: 60 mls/hr Metronidazole (Flagyl) 500 mg in 100 mls @ 100 mls/hr IVPB Q8H [facility] Last Admin: 07/28/17 10:07 Dose: 100 mls/hr Ciprofloxacin (Cipro 400mg/200ml Dsw) 400 mg in 200 mls @ 133 mls/hr IVPB Q12H [facility] Last Admin: 07/28/17 06:09 Dose: 133 mls/hr Lorazepam (Ativan) 1 mg PO Q4H PRN PRN Reason: Anxiety Magnesium Oxide (Mag-Ox) 800 mg PO TID [facility] Last Admin: 07/28/17 10:07 Dose: 800 mg Morphine Sulfate (Morphine) 1 mg IVP Q6H PRN PRN Reason: Pain, severe (8-10) Last Admin: 07/23/17 19:35 Dose: 1 mg Multivitamins (Hexavitamin) 1 tab PO DAILY [facility] Last Admin: 07/28/17 10:08 Dose: 1 tab Nicotine (Nicoderm Cq) 1 patch TD DAILY [facility] Last Admin: 07/28/17 10:09 Dose: 1 patch Phytonadione (Vitamin K Tab) 5 mg PO DAILY [facility] Stop: 07/30/17 10:01 Last Admin: 07/28/17 10:09 Dose: 5 mg Rifaximin (Xifaxan) 550 mg PO BID [facility] Last Admin: 07/28/17 10:09 Dose: 550 mg Simethicone (Mylicon Chew Tab) 80 mg PO BID [facility] Last Admin: 07/28/17 12:03 Dose: Not Given Spironolactone (Aldactone) 25 mg PO BID [facility] Last Admin: 07/28/17 10:07 Dose: 25 mg Thiamine HCl (Vitamin B1 Inj) 100 mg IV DAILY [facility] Last Admin: 07/28/17 10:09 Dose: 100 mg Trazodone HCl (Desyrel) 50 mg PO HS [facility] Last Admin: 07/27/17 21:30 Dose: 50 mg - Labs Labs: 07/28/17 08:17 07/28/17 08:17 PT 20.4 SECONDS (9.7-12.2) H 07/28/17 08:17 INR 1.8 07/28/17 08:17 APTT 34 SECONDS (21-34) 07/18/17 13:52 - Additional Findings Additional findings: - Constitutional Appears: Non-toxic, No Acute Distress - Head Exam Head Exam: ATRAUMATIC, NORMAL INSPECTION, NORMOCEPHALIC - Eye Exam Eye Exam: EOMI, Normal appearance - ENT Exam ENT Exam: Mucous Membranes Moist - Respiratory Exam Respiratory Exam: Clear to Ausculation Bilateral, NORMAL BREATHING PATTERN. absent: Rales, Rhonchi, Wheezes, Respiratory Distress, Stridor - Cardiovascular Exam Cardiovascular Exam: Tachycardia, REGULAR RHYTHM, +S1, +S2 - GI/Abdominal Exam GI & Abdominal Exam: Distended, Soft, Normal Bowel Sounds. absent: Tenderness - Extremities Exam Extremities Exam: Normal Inspection. absent: Pedal Edema, Tenderness - Neurological Exam Neurological Exam: Alert, Awake. absent: Oriented x3 - Psychiatric Exam Psychiatric exam: Normal Affect, Normal Mood - Skin Skin Exam: Intact, Normal Color, Warm Assessment and Plan - Assessment and Plan (Free Text) Assessment: 1.Colitis and Diarrhea No leukocytosis, afebrile giardia negative, stool ova and parasite negative, stool culture negative blood culture negative negative HIV and hep panel fecal fat study: normal c dif neg x 3 Imaging: CT abd/pelvis with IV contrast 07/17: Significant bowel wall thickening involving the colon, appearance most consistent with acute colitis, cannot exclude underlying neoplasm. Small to moderate ascites. Fatty infiltration of the liver. Heterogeneous appearance to hepatic parenchyma. Some of appearance may be due to transient hepatic attenuation differences, concern for underlying lesion. Meds: Cipro 400 IV daily Flagyl 500 IV Q8 patient went for colonoscopy and endoscopy today 07/28/17 2.Alcohol abuse/alcohol intoxication/alcohol withdrawal Elevated serum alcohol on admission 292 Seizure and aspiration precautions Ativan taper Thiamine 100 mg daily Folic acid 1 mg daily Psych consult, Dr. Man, help appreciated 3. Ascites and hepatic encephalopathy Consult GI, Dr South CT abd/pelvis shows small to moderate ascites Paracentesis done today 07/19/17 with 2.1 L straw colored fluid removed. * peritoneal fluid no growth * Fluid WBC: 147, RBC: 216, neut: 41, lymph: 43, monocyte/macrophage: 15 Albumin 12.5 gm x 2 given on 07/21/17 ammonia level: increased to 64 on 07/22/17 Continue xifaxan 550mg po BID,not on lactulose due to diarrhea no paracentesis at this time started Lasix 40 mg po daily and Aldactone 25mg po BID on 07/25/17 4.Hypokalemia and Hypomagnesemia follow levels with supplementation Mg 1.8 on 07/28 from 1.1 on 07/27 K 3.5 on 07/28 from 2.5 on 07/27 5. 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 Tran help appreciated stool occult blood negative 6.Tobacco use disorder Nicotine patch 7 . S/P Urinary Retention patient urinating in urinal today monitor urine output 8. Elevated INR trending down Vitamin K 5mg po daily continue to monitor 9.Prophylactic Measure/supportive care Pepcid 20mg po BID [facility] Simethicone 80mg po BID PT/OT
[2017-07-29] MEDS: metroNIDAZOLE IV 500 mg/100 ml 500 MG/100 ML BAG IVPB SCH ×4 (00:09→23:48)
[2017-07-29] MEDS: Ciprofloxacin 400mg/200ml D5W 400 MG/200 ML BAG IVPB SCH ×2 (01:36→13:58)
[2017-07-29 07:32] LABS: INR 1.7; PROTHROMBIN TIME 20.2 SECONDS (9.7-12.2)
[2017-07-29 07:45] LABS: BASO # 0.1 K/uL (0.0-0.2); BASO % 1.1 % (0.0-2.0); EOS % 0.2 % (0.0-4.0); HEMOGLOBIN 7.7 g/dL (12.0-18.0); LYMPH # 1.2 K/uL (1.0-4.3); LYMPH % 15.6 % (20.0-40.0); MEAN CELL VOLUME 89.9 fL (80.0-94.0); MEAN CORPUSCULAR HEMOGLOBIN 30.1 pg (27.0-31.0); MEAN CORPUSCULAR HGB CONC 33.4 g/dL (33.0-37.0); MONO # 0.7 K/uL (0.0-0.8); MONO % 8.4 % (0.0-10.0); NEUT # 5.9 K/uL (1.8-7.0); NEUT % 74.7 % (50.0-75.0); NRBC % 0.1 % (0.0-2.0); RBC 2.55 Mil/uL (4.40-5.90); RED CELL DISTRIBUTION WIDTH 21.4 % (11.5-14.5); WHITE BLOOD COUNT 7.8 K/uL (4.8-10.8)
--- NOTE | 2017-07-29 08:18 | CP.PCM.PN ---
Subjective - Date & Time of Evaluation Date of Evaluation: 07/29/17 Time of Evaluation: 08:15 - Subjective Subjective: Patient continues to complain of diarrhea. EGD yesterday showed hiatal hernia, mild gastritis; biopsies were taken to rule out celiac disease. Colonoscopy showed mucosal nodules of uncertain clinical significance. There was no endoscopic evidence of colitis. Objective - Vital Signs/Intake and Output Vital Signs (last 24 hours): Temp Pulse Resp BP Pulse Ox 98.8 F 103 H 20 96/66 L 96 07/29/17 07:05 07/29/17 07:05 07/29/17 07:05 07/29/17 07:05 07/29/17 07:05 - Medications Medications: Current Medications Famotidine (Pepcid) 20 mg PO BID [facility] Last Admin: 07/28/17 18:47 Dose: 20 mg Furosemide (Lasix) 40 mg PO DAILY [facility] Last Admin: 07/28/17 10:08 Dose: Not Given Folic Acid 1 mg/ Sodium (Chloride) 100.2 mls @ 60 mls/hr IV DAILY [facility] Last Admin: 07/28/17 11:40 Dose: 60 mls/hr Metronidazole (Flagyl) 500 mg in 100 mls @ 100 mls/hr IVPB Q8H [facility] Last Admin: 07/29/17 00:09 Dose: 100 mls/hr Ciprofloxacin (Cipro 400mg/200ml Dsw) 400 mg in 200 mls @ 133 mls/hr IVPB Q12H [facility] Last Admin: 07/29/17 01:36 Dose: 133 mls/hr Lorazepam (Ativan) 1 mg PO Q4H PRN PRN Reason: Anxiety Magnesium Oxide (Mag-Ox) 800 mg PO TID [facility] Last Admin: 07/28/17 18:50 Dose: 800 mg Morphine Sulfate (Morphine) 1 mg IVP Q6H PRN PRN Reason: Pain, severe (8-10) Last Admin: 07/23/17 19:35 Dose: 1 mg Multivitamins (Hexavitamin) 1 tab PO DAILY [facility] Last Admin: 07/28/17 10:08 Dose: 1 tab Nicotine (Nicoderm Cq) 1 patch TD DAILY [facility] Last Admin: 07/28/17 10:09 Dose: 1 patch Phytonadione (Vitamin K Tab) 5 mg PO DAILY [facility] Stop: 07/30/17 10:01 Last Admin: 07/28/17 10:09 Dose: 5 mg Rifaximin (Xifaxan) 550 mg PO BID [facility] Last Admin: 07/28/17 18:47 Dose: 550 mg Simethicone (Mylicon Chew Tab) 80 mg PO BID [facility] Last Admin: 07/28/17 18:47 Dose: 80 mg Spironolactone (Aldactone) 25 mg PO BID [facility] Last Admin: 07/28/17 18:47 Dose: 25 mg Thiamine HCl (Vitamin B1 Inj) 100 mg IV DAILY [facility] Last Admin: 07/28/17 10:09 Dose: 100 mg Trazodone HCl (Desyrel) 50 mg PO HS [facility] Last Admin: 07/28/17 22:27 Dose: 50 mg - Labs Labs: 07/29/17 07:14 07/29/17 07:14 PT 20.2 SECONDS (9.7-12.2) H 07/29/17 07:14 INR 1.7 07/29/17 07:14 APTT 34 SECONDS (21-34) 07/18/17 13:52 - Constitutional Appears: No Acute Distress - Head Exam Head Exam: ATRAUMATIC, NORMOCEPHALIC - Neck Exam Neck Exam: absent: Lymphadenopathy, Thyromegaly - Respiratory Exam Respiratory Exam: NORMAL BREATHING PATTERN. absent: Rales, Rhonchi, Wheezes - Cardiovascular Exam Cardiovascular Exam: REGULAR RHYTHM, +S1, +S2. absent: Gallop, Rubs, Murmur - GI/Abdominal Exam GI & Abdominal Exam: Distended, Soft, Normal Bowel Sounds. absent: Tenderness, Mass - Rectal Exam Rectal Exam: Deferred - Extremities Exam Extremities Exam: absent: Calf Tenderness, Pedal Edema Assessment and Plan (1) Alcoholic hepatitis Assessment & Plan: LFTs continue to improve slowly. TBILI is down to 3.0 and PT to 20.2. Status: Acute (2) Diarrhea Assessment & Plan: Biopsies from EGD and colonoscopy are pending. Status: Acute (3) Ascites Status: Acute
[2017-07-29 08:20] LABS: ALB/GLOB RATIO 0.7 (1.0-2.1); ALBUMIN 2.2 g/dL (3.5-5.0); ALT/SGPT 32 U/L (21-72); AST/SGOT 130 U/L (17-59); BLOOD UREA NITROGEN 5 mg/dL (9-20); GFR AFRICAN-AMERICAN > 60; GFR NON-AFRICAN AMERICAN > 60; MAGNESIUM 1.6 mg/dL (1.6-2.3)
[2017-07-29] MEDS: Magnesium Oxide 400 mg Tab UD PO SCH ×3 (09:48→17:23)
[2017-07-29] MEDS: Multiple Vitamins Tab PO SCH (09:48)
[2017-07-29] MEDS: Simethicone 80 mg Chewtab PO SCH ×2 (09:48→17:23)
[2017-07-29] MEDS: Thiamine 100 mg/ml Inj IV SCH (09:49)
[2017-07-29] MEDS ORDERED: Potassium Chloride 20 mEq ER Tab PO ONE (10:00)
[2017-07-29] MEDS ORDERED: Magnesium Sulfate 1 gm in D5W 1 GM/100 ML BAG IVPB ONE (13:51)
--- NOTE | 2017-07-29 14:07 | CP.PCM.PN ---
Subjective - Date & Time of Evaluation Date of Evaluation: 07/29/17 Time of Evaluation: 07:00 - Subjective Subjective: PGY1- Medicine Note- Dr. Tony's service Patient seen and examined at bedside and in no acute distress. Patient is alert and awake today. Patient had colonoscopy and endoscopy yesterday. Patient still having diarrhea. Patient denies any chest pain, shortness of breath, nausea, or vomiting. Objective - Vital Signs/Intake and Output Vital Signs (last 24 hours): Temp Pulse Resp BP Pulse Ox 98.8 F 103 H 20 99/66 L 96 07/29/17 07:05 07/29/17 07:05 07/29/17 07:05 07/29/17 09:51 07/29/17 07:05 - Medications Medications: Current Medications Cholestyramine Resin (Questran) 4 gm PO DAILY [facility] Famotidine (Pepcid) 20 mg PO BID [facility] Last Admin: 07/29/17 09:48 Dose: 20 mg Furosemide (Lasix) 40 mg PO DAILY [facility] Last Admin: 07/29/17 09:51 Dose: Not Given Folic Acid 1 mg/ Sodium (Chloride) 100.2 mls @ 60 mls/hr IV DAILY [facility] Last Admin: 07/29/17 09:48 Dose: 60 mls/hr Metronidazole (Flagyl) 500 mg in 100 mls @ 100 mls/hr IVPB Q8H [facility] Last Admin: 07/29/17 08:30 Dose: 100 mls/hr Ciprofloxacin (Cipro 400mg/200ml Dsw) 400 mg in 200 mls @ 133 mls/hr IVPB Q12H [facility] Last Admin: 07/29/17 01:36 Dose: 133 mls/hr Magnesium Sulfate/Dextrose (Magnesium Sulfate 1 Gm/100 Ml D5w) 1 gm in 100 mls @ 200 mls/hr IVPB ONCE ONE Stop: 07/29/17 14:20 Lorazepam (Ativan) 1 mg PO Q4H PRN PRN Reason: Anxiety Magnesium Oxide (Mag-Ox) 800 mg PO TID [facility] Last Admin: 07/29/17 09:48 Dose: 800 mg Multivitamins (Hexavitamin) 1 tab PO DAILY [facility] Last Admin: 07/29/17 09:48 Dose: 1 tab Nicotine (Nicoderm Cq) 1 patch TD DAILY [facility] Last Admin: 07/29/17 09:49 Dose: 1 patch Phytonadione (Vitamin K Tab) 5 mg PO DAILY [facility] Stop: 07/30/17 10:01 Last Admin: 07/29/17 09:50 Dose: 5 mg Rifaximin (Xifaxan) 550 mg PO BID [facility] Last Admin: 07/29/17 09:50 Dose: 550 mg Simethicone (Mylicon Chew Tab) 80 mg PO BID [facility] Last Admin: 07/29/17 09:48 Dose: 80 mg Spironolactone (Aldactone) 25 mg PO BID [facility] Last Admin: 07/29/17 09:48 Dose: 25 mg Thiamine HCl (Vitamin B1 Inj) 100 mg IV DAILY [facility] Last Admin: 07/29/17 09:49 Dose: 100 mg Trazodone HCl (Desyrel) 50 mg PO HS [facility] Last Admin: 07/28/17 22:27 Dose: 50 mg - Labs Labs: 07/29/17 07:14 07/29/17 07:14 PT 20.2 SECONDS (9.7-12.2) H 07/29/17 07:14 INR 1.7 07/29/17 07:14 APTT 34 SECONDS (21-34) 07/18/17 13:52 - Constitutional Appears: Non-toxic, No Acute Distress - Head Exam Head Exam: ATRAUMATIC, NORMAL INSPECTION, NORMOCEPHALIC - Eye Exam Eye Exam: EOMI, Normal appearance - ENT Exam ENT Exam: Mucous Membranes Moist - Respiratory Exam Respiratory Exam: Clear to Ausculation Bilateral, NORMAL BREATHING PATTERN. absent: Rales, Rhonchi, Wheezes, Respiratory Distress, Stridor - Cardiovascular Exam Cardiovascular Exam: REGULAR RHYTHM, RRR, +S1, +S2 - GI/Abdominal Exam GI & Abdominal Exam: Distended, Firm, Tenderness, Normal Bowel Sounds - Extremities Exam Extremities Exam: Normal Inspection. absent: Pedal Edema - Neurological Exam Neurological Exam: Alert, Awake, Oriented x3 - Psychiatric Exam Psychiatric exam: Normal Affect, Normal Mood - Skin Skin Exam: Intact, Normal Color, Warm Assessment and Plan - Assessment and Plan (Free Text) Assessment: 1.Colitis and Diarrhea No leukocytosis, afebrile giardia negative, stool ova and parasite negative, stool culture negative blood culture negative negative HIV and hep panel fecal fat study: normal c dif neg x 3 Imaging: CT abd/pelvis with IV contrast 07/17: Significant bowel wall thickening involving the colon, appearance most consistent with acute colitis, cannot exclude underlying neoplasm. Small to moderate ascites. Fatty infiltration of the liver. Heterogeneous appearance to hepatic parenchyma. Some of appearance may be due to transient hepatic attenuation differences, concern for underlying lesion. Meds: Cipro 400 IV daily Flagyl 500 IV Q8 Endoscopy (07/28): small hiatal hernia, patchy mild inflammation in gastric antrum biopsies, scalloped mucosa found in duodenum, suspicious for celiac disease- biopsied Colonoscopy (07/28): internal hemorrhoids, mucosal nodule in the sigmoid colon, in transverse colon and in the ascending colon- biopsied 2.Alcohol abuse/alcohol intoxication/alcohol withdrawal Elevated serum alcohol on admission 292 Seizure and aspiration precautions Ativan 1mg q4h prn for agitation Thiamine 100 mg daily Folic acid 1 mg daily Psych consult, Dr. Man, help appreciated 3. Ascites and hepatic encephalopathy Consult GI, Dr South CT abd/pelvis shows small to moderate ascites Paracentesis done today 07/19/17 with 2.1 L straw colored fluid removed. * peritoneal fluid no growth * Fluid WBC: 147, RBC: 216, neut: 41, lymph: 43, monocyte/macrophage: 15 Albumin 12.5 gm x 2 given on 07/21/17 ammonia level: increased to 64 on 07/22/17 Continue xifaxan 550mg po BID,not on lactulose due to diarrhea no paracentesis at this time started Lasix 40 mg po daily and Aldactone 25mg po BID on 07/25/17 Lasix held on 07/29/17 due to hypotension, restart when blood pressure increases 4.Hypokalemia and Hypomagnesemia follow levels with supplementation 5. 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 Tran help appreciated stool occult blood negative 6.Tobacco use disorder Nicotine patch 7 . S/P Urinary Retention patient urinating in urinal today monitor urine output 8. Elevated INR trending down Vitamin K 5mg po daily for a total of 5 days (day 1 on 07/26, last dose to be given on 07/30) continue to monitor 9.Prophylactic Measure/supportive care Pepcid 20mg po BID SCDs, Lovenox 40mg sc daily Simethicone 80mg po BID PT/OT
[2017-07-29] MEDS: Enoxaparin 40 mg Syringe SC SCH (14:54)
[2017-07-29] MEDS: Cholestyramine 4 gm/Pkt UD PO SCH (14:54)
[2017-07-29 16:52] LABS: BASO # 0.1 K/uL (0.0-0.2); BASO % 0.7 % (0.0-2.0); EOS % 0.3 % (0.0-4.0); LYMPH # 1.6 K/uL (1.0-4.3); LYMPH % 16.1 % (20.0-40.0); MEAN CELL VOLUME 90.3 fL (80.0-94.0); MEAN CORPUSCULAR HEMOGLOBIN 29.9 pg (27.0-31.0); MEAN CORPUSCULAR HGB CONC 33.1 g/dL (33.0-37.0); MEAN PLATELET VOLUME 8.6 fL (7.2-11.7); MONO % 10.1 % (0.0-10.0); NEUT # 7.3 K/uL (1.8-7.0); NEUT % 72.8 % (50.0-75.0); RBC 2.66 Mil/uL (4.40-5.90); RED CELL DISTRIBUTION WIDTH 20.9 % (11.5-14.5)
[2017-07-29 17:07] LABS: ALB/GLOB RATIO 0.7 (1.0-2.1); ALBUMIN 2.3 g/dL (3.5-5.0); ALT/SGPT 37 U/L (21-72); AST/SGOT 150 U/L (17-59); BLOOD UREA NITROGEN 6 mg/dL (9-20); CALCIUM 7.3 mg/dl (8.6-10.4); GFR AFRICAN-AMERICAN > 60; GFR NON-AFRICAN AMERICAN > 60
[2017-07-30] MEDS: Ciprofloxacin 400mg/200ml D5W 400 MG/200 ML BAG IVPB SCH ×3 (01:17→15:02)
--- NOTE | 2017-07-30 07:51 | CP.PCM.PN ---
<Domonique Gerard - Last Filed: 07/30/17 12:22> Subjective - Date & Time of Evaluation Date of Evaluation: 07/30/17 Time of Evaluation: 12:22 - Subjective Subjective: Progress note for Dr. Shepard Patient seen and examined at bedside. He is still complaining of non-bloody, watery diarrhea. Admits to dizziness, weakness, abdominal pain. denies fatigue, chest pain, headache, cough, constipation Objective - Vital Signs/Intake and Output Vital Signs (last 24 hours): Temp Pulse Resp BP Pulse Ox 98.4 F 93 H 20 113/80 100 07/29/17 23:15 07/30/17 04:00 07/29/17 23:15 07/29/17 23:15 07/29/17 23:15 Intake and Output: 07/30/17 07/30/17 06:59 18:59 Intake Total 100 Balance 100 - Medications Medications: Current Medications Cholestyramine Resin (Questran) 4 gm PO DAILY [facility] Last Admin: 07/29/17 14:54 Dose: 4 gm Enoxaparin Sodium (Lovenox) 40 mg SC DAILY [facility] Last Admin: 07/29/17 14:54 Dose: 40 mg Famotidine (Pepcid) 20 mg PO BID [facility] Last Admin: 07/29/17 17:23 Dose: 20 mg Furosemide (Lasix) 40 mg PO DAILY [facility] Last Admin: 07/29/17 09:51 Dose: Not Given Folic Acid 1 mg/ Sodium (Chloride) 100.2 mls @ 60 mls/hr IV DAILY [facility] Last Admin: 07/29/17 09:48 Dose: 60 mls/hr Metronidazole (Flagyl) 500 mg in 100 mls @ 100 mls/hr IVPB Q8H [facility] Last Admin: 07/29/17 23:48 Dose: 100 mls/hr Ciprofloxacin (Cipro 400mg/200ml Dsw) 400 mg in 200 mls @ 133 mls/hr IVPB Q12H [facility] Last Admin: 07/30/17 01:17 Dose: 133 mls/hr Lorazepam (Ativan) 1 mg PO Q4H PRN PRN Reason: Anxiety Magnesium Oxide (Mag-Ox) 800 mg PO TID [facility] Last Admin: 07/29/17 17:23 Dose: 800 mg Multivitamins (Hexavitamin) 1 tab PO DAILY [facility] Last Admin: 07/29/17 09:48 Dose: 1 tab Nicotine (Nicoderm Cq) 1 patch TD DAILY [facility] Last Admin: 07/29/17 09:49 Dose: 1 patch Phytonadione (Vitamin K Tab) 5 mg PO DAILY [facility] Stop: 07/30/17 10:01 Last Admin: 07/29/17 09:50 Dose: 5 mg Rifaximin (Xifaxan) 550 mg PO BID [facility] Last Admin: 07/29/17 17:23 Dose: 550 mg Simethicone (Mylicon Chew Tab) 80 mg PO TID [facility] Last Admin: 07/29/17 17:23 Dose: 80 mg Spironolactone (Aldactone) 25 mg PO BID [facility] Last Admin: 07/29/17 17:23 Dose: 25 mg Thiamine HCl (Vitamin B1 Inj) 100 mg IV DAILY [facility] Last Admin: 07/29/17 09:49 Dose: 100 mg Trazodone HCl (Desyrel) 50 mg PO HS [facility] Last Admin: 07/29/17 21:24 Dose: 50 mg - Labs Labs: 07/29/17 16:43 07/29/17 16:43 PT 20.2 SECONDS (9.7-12.2) H 07/29/17 07:14 INR 1.7 07/29/17 07:14 APTT 34 SECONDS (21-34) 07/18/17 13:52 - Constitutional Appears: Non-toxic, No Acute Distress - Head Exam Head Exam: NORMAL INSPECTION - Eye Exam Eye Exam: EOMI, Normal appearance Pupil Exam: NORMAL ACCOMODATION - ENT Exam ENT Exam: Mucous Membranes Moist - Neck Exam Neck Exam: Full ROM - Respiratory Exam Respiratory Exam: Decreased Breath Sounds, NORMAL BREATHING PATTERN - Cardiovascular Exam Cardiovascular Exam: REGULAR RHYTHM, +S1, +S2 - GI/Abdominal Exam GI & Abdominal Exam: Distended, Soft, Tenderness, Normal Bowel Sounds - Extremities Exam Extremities Exam: Full ROM - Neurological Exam Neurological Exam: Alert, Awake, CN II-XII Intact - Psychiatric Exam Psychiatric exam: Normal Affect, Normal Mood - Skin Skin Exam: Dry, Normal Color, Warm Assessment and Plan - Assessment and Plan (Free Text) Assessment: 41M with PMH alcohol abuse, presents with abdominal pain for one week, with diarrhea. 1.Colitis and Diarrhea No leukocytosis, afebrile giardia negative, stool ova and parasite negative, stool culture negative blood culture negative negative HIV and hep panel fecal fat study: normal c dif neg x 3 Imaging: CT abd/pelvis with IV contrast 07/17: Significant bowel wall thickening involving the colon, appearance most consistent with acute colitis, cannot exclude underlying neoplasm. Small to moderate ascites. Fatty infiltration of the liver. Heterogeneous appearance to hepatic parenchyma. Some of appearance may be due to transient hepatic attenuation differences, concern for underlying lesion. Meds: Cipro 400 IV daily Flagyl 500 IV Q8 Endoscopy (07/28): small hiatal hernia, patchy mild inflammation in gastric antrum biopsies, scalloped mucosa found in duodenum, suspicious for celiac disease- biopsied Colonoscopy (07/28): internal hemorrhoids, mucosal nodule in the sigmoid colon, in transverse colon and in the ascending colon- biopsied f/u upright abdominal xray and repeat c diff toxin 2.Alcohol abuse/alcohol intoxication/alcohol withdrawal Elevated serum alcohol on admission 292 Seizure and aspiration precautions Ativan 1mg q4h prn for agitation Thiamine 100 mg daily Folic acid 1 mg daily Psych consult, Dr. Man, help appreciated 3. Ascites and hepatic encephalopathy Consult GI, Dr South CT abd/pelvis shows small to moderate ascites Paracentesis done today 07/19/17 with 2.1 L straw colored fluid removed. * peritoneal fluid no growth * Fluid WBC: 147, RBC: 216, neut: 41, lymph: 43, monocyte/macrophage: 15 Albumin 12.5 gm x 2 given on 07/21/17 ammonia level: increased to 64 on 07/22/17 Continue xifaxan 550mg po BID,not on lactulose due to diarrhea no paracentesis at this time started Lasix 40 mg po daily and Aldactone 25mg po BID on 07/25/17 Lasix held on 07/29/17 due to hypotension, restart when blood pressure increases 4.Hypokalemia and Hypomagnesemia follow levels with supplementation 5. 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 Tran help appreciated stool occult blood negative 6.Tobacco use disorder Nicotine patch 7 . S/P Urinary Retention patient urinating in urinal today monitor urine output 8. Elevated INR trending down Vitamin K 5mg po daily for a total of 5 days (day 1 on 07/26, last dose to be given on 07/30) continue to monitor 9.Prophylactic Measure/supportive care Pepcid 20mg po BID SCD[facility], Lovenox 40mg sc daily Simethicone 80mg po BID PT/OT discussed with Dr. Devyn Gerard, DO PGY1 <Purnima Shepard V - Last Filed: 07/30/17 17:53> Objective - Vital Signs/Intake and Output Vital Signs (last 24 hours): Temp Pulse Resp BP Pulse Ox 98 F 94 H 20 117/82 98 07/30/17 15:00 07/30/17 16:00 07/30/17 15:00 07/30/17 15:00 07/30/17 15:00 Intake and Output: 07/30/17 07/30/17 06:59 18:59 Intake Total 100 Balance 100 - Medications Medications: Current Medications [facility] Enoxaparin Sodium (Lovenox) 40 mg SC DAILY [facility] Last Admin: 07/30/17 09:55 Dose: 40 mg Famotidine (Pepcid) 20 mg PO BID [facility] Last Admin: 07/30/17 09:56 Dose: 20 mg Furosemide (Lasix) 40 mg PO DAILY [facility] Last Admin: 07/29/17 09:51 Dose: Not Given Folic Acid 1 mg/ Sodium (Chloride) 100.2 mls @ 60 mls/hr IV DAILY [facility] Last Admin: 07/30/17 10:06 Dose: 60 mls/hr Metronidazole (Flagyl) 500 mg in 100 mls @ 100 mls/hr IVPB Q8H [facility] Last Admin: 07/30/17 08:14 Dose: 100 mls/hr Ciprofloxacin (Cipro 400mg/200ml Dsw) 400 mg in 200 mls @ 133 mls/hr IVPB Q12H [facility] Last Admin: 07/30/17 15:02 Dose: 133 mls/hr Lorazepam (Ativan) 1 mg PO Q4H PRN PRN Reason: Anxiety Magnesium Oxide (Mag-Ox) 800 mg PO TID [facility] Last Admin: 07/30/17 15:04 Dose: 800 mg Multivitamins (Hexavitamin) 1 tab PO DAILY [facility] Last Admin: 07/30/17 09:57 Dose: 1 tab Nicotine (Nicoderm Cq) 1 patch TD DAILY [facility] Last Admin: 07/30/17 09:55 Dose: 1 patch Rifaximin (Xifaxan) 550 mg PO BID [facility] Last Admin: 07/30/17 09:54 Dose: 550 mg Simethicone (Mylicon Chew Tab) 80 mg PO TID [facility] Last Admin: 07/30/17 15:04 Dose: 80 mg Spironolactone (Aldactone) 25 mg PO BID [facility] Last Admin: 07/30/17 09:54 Dose: 25 mg Thiamine HCl (Vitamin B1 Inj) 100 mg IV DAILY [facility] Last Admin: 07/30/17 09:54 Dose: 100 mg Trazodone HCl (Desyrel) 50 mg PO HS [facility] Last Admin: 07/29/17 21:24 Dose: 50 mg - Labs Labs: 07/30/17 07:56 07/30/17 07:56 PT 18.5 SECONDS (9.7-12.2) H 07/30/17 07:56 INR 1.6 07/30/17 07:56 APTT 34 SECONDS (21-34) 07/18/17 13:52 Attending/Attestation - Attestation I have personally seen and examined this patient.: Yes I have fully participated in the care of the patient.: Yes I have reviewed all pertinent clinical information, including history, physical exam and plan: Yes Notes (Text): Patient seen, examined, case discussed with biomedical engineer. This is a first encounter with the patient with a prior history of alcohol abuse alcohol withdrawal associated ascites. Patient is postoperative day 1 of colonoscopy. Patient was started on cholestyramine last night for chronic diarrhea of unknown etiology. Patient on exam does report 5 watery stools on general exam he is distended with hyperactive bowel sounds. Patient is ordered for an upright abdominal x-ray and CAT scan abdomen and pel pelvis patient is currently on IV antibiotics to cover her colitis. Patient has prior 3 negative C. difficile. Electrolytes supplemented. Assessment/Plan 1.Colitis and Diarrhea * Dr. South (GI) on board-->helpa appreciated * No leukocytosis, afebrile * giardia negative, stool ova and parasite negative, stool culture negative * Blood culture (07/18/17): no growth after 5 days X2 * Blood cultures (07/21/17): no growth after 5 days X2 * negative HIV and hep panel * fecal fat study: normal * c dif neg x 3 * Stool ova and parasite (07/18/17): no ova and parasite * Endoscopy (07/18/17): Small hiatus hernia. Gastritis, Scalloped mucosa was found duodenum, suspicious for celiac disease. Biopsied * Colonoscopy (07/28/17): internal hemorrhoids. Mucosal nodule in the sigmoid colon, in the tranverse colon, and in the ascending colon Imaging: * CT abd/pelvis with IV contrast 07/17: Significant bowel wall thickening involving the colon, appearance most consistent with acute colitis, cannot exclude underlying neoplasm. Small to moderate ascites. Fatty infiltration of the liver. Heterogeneous appearance to hepatic parenchyma. Some of appearance may be due to transient hepatic attenuation differences, concern for underlying lesion. * Upright Abdominal Xray (07/30/17): luceny in the right hemidiaphragm, possibly atelectasis at the right lung base rather than free air. Meds: * Cipro 400mg IVPB Q12H (active since 07/18/17) * Flagyl 500 IV Q8H (active since 07/18/17) 2.Alcohol abuse/alcohol intoxication/alcohol withdrawal * Psych consult, Dr. Man, help appreciated * Elevated serum alcohol on admission 292 (07/17) * Seizure and aspiration precautions * Ativan 1mg q4h prn for agitation * Thiamine 100 mg daily * Folic acid 1 mg daily 3. Ascites and hepatic encephalopathy * Consult GI, Dr South on board help appreciated * CT abd/pelvis with IV contrast 07/17: Significant bowel wall thickening involving the colon, appearance most consistent with acute colitis, cannot exclude underlying neoplasm. Small to moderate ascites. Fatty infiltration of the liver. Heterogeneous appearance to hepatic parenchyma. Some of appearance may be due to transient hepatic attenuation differences, concern for underlying lesion. * Paracentesis--> 07/19/17--> 2.1 L straw colored fluid removed. * Peritoneal fluid no growth * Fluid WBC: 147, RBC: 216, neut: 41, lymph: 43, monocyte/macrophage: 15 * ammonia level: increased to 64 on 07/22/17 * Continue xifaxan 550mg po BID,not on lactulose due to diarrhea * Started Lasix 40 mg PO daily and Aldactone 25mg po BID * Lasix held on 07/29/17 due to hypotension, restart when blood pressure increases 4. Hypokalemia and Hypomagnesemia * follow levels with supplementation 5. Anemia * Heme/onc consulted, Dr. Tran help appreciated * secondary to bone marrow suppression from ETOH * patient transfused 1 u PRBC on 07/20/17 * stool occult blood negative 6.Tobacco use disorder * Nicotine patch 7 . S/P Urinary Retention * patient urinating in urinal today * monitor urine output 8. Coagulopathy * Vitamin K 5mg po daily for a total of 5 days (day 1 on 07/26, last dose to be given on 07/30) * trending down * continue to monitor 9.Prophylactic Measure * Pepcid 20mg po BID * SCDs * Lovenox 40mg subq daily * Simethicone 80mg po BID * PT/OT
[2017-07-30 08:08] LABS: BASO # 0.1 K/uL (0.0-0.2); BASO % 0.8 % (0.0-2.0); EOS % 0.3 % (0.0-4.0); LYMPH # 1.3 K/uL (1.0-4.3); LYMPH % 14.2 % (20.0-40.0); MEAN CELL VOLUME 90.1 fL (80.0-94.0); MEAN CORPUSCULAR HEMOGLOBIN 30.9 pg (27.0-31.0); MEAN CORPUSCULAR HGB CONC 34.3 g/dL (33.0-37.0); MEAN PLATELET VOLUME 8.8 fL (7.2-11.7); MONO # 0.7 K/uL (0.0-0.8); MONO % 7.2 % (0.0-10.0); NEUT # 7.3 K/uL (1.8-7.0); NEUT % 77.5 % (50.0-75.0); RBC 2.6 Mil/uL (4.40-5.90); RED CELL DISTRIBUTION WIDTH 20.5 % (11.5-14.5); WHITE BLOOD COUNT 9.4 K/uL (4.8-10.8)
[2017-07-30] MEDS: metroNIDAZOLE IV 500 mg/100 ml 500 MG/100 ML BAG IVPB SCH ×2 (08:14→15:35)
[2017-07-30 08:15] LABS: INR 1.6; PROTHROMBIN TIME 18.5 SECONDS (9.7-12.2)
[2017-07-30 08:33] LABS: ALB/GLOB RATIO 0.6 (1.0-2.1); ALBUMIN 2.2 g/dL (3.5-5.0); ALT/SGPT 41 U/L (21-72); AST/SGOT 144 U/L (17-59); BLOOD UREA NITROGEN 5 mg/dL (9-20); CALCIUM 7.2 mg/dl (8.6-10.4); GFR AFRICAN-AMERICAN > 60; GFR NON-AFRICAN AMERICAN > 60; MAGNESIUM 1.5 mg/dL (1.6-2.3)
[2017-07-30] MEDS: Thiamine 100 mg/ml Inj IV SCH (09:54)
[2017-07-30] MEDS: Simethicone 80 mg Chewtab PO SCH ×3 (09:54→18:13)
[2017-07-30] MEDS: Enoxaparin 40 mg Syringe SC SCH (09:55)
[2017-07-30] MEDS: Magnesium Oxide 400 mg Tab UD PO SCH ×4 (09:57→18:13)
[2017-07-30] MEDS: Multiple Vitamins Tab PO SCH (09:57)
[2017-07-30] MEDS: Magnesium Sulfate 1 gm in D5W 1 GM/100 ML BAG IVPB SCH ×2 (11:18→12:36)
--- NOTE | 2017-07-30 12:43 | CP.PCM.PN ---
Subjective - Date & Time of Evaluation Date of Evaluation: 07/30/17 Time of Evaluation: 12:40 - Subjective Subjective: COVERING DR VIDAL Reports five loose stools today Pathology pending from endoscopic workup C diff negative Objective - Vital Signs/Intake and Output Vital Signs (last 24 hours): Temp Pulse Resp BP Pulse Ox 98.5 F 85 20 110/75 97 07/30/17 07:35 07/30/17 07:35 07/30/17 07:35 07/30/17 07:35 07/30/17 07:35 Intake and Output: 07/30/17 07/30/17 06:59 18:59 Intake Total 100 Balance 100 - Medications Medications: Current Medications Cholestyramine Resin (Questran) 4 gm PO DAILY [facility] Last Admin: 07/29/17 14:54 Dose: 4 gm Enoxaparin Sodium (Lovenox) 40 mg SC DAILY [facility] Last Admin: 07/30/17 09:55 Dose: 40 mg Famotidine (Pepcid) 20 mg PO BID [facility] Last Admin: 07/30/17 09:56 Dose: 20 mg Furosemide (Lasix) 40 mg PO DAILY [facility] Last Admin: 07/29/17 09:51 Dose: Not Given Folic Acid 1 mg/ Sodium (Chloride) 100.2 mls @ 60 mls/hr IV DAILY [facility] Last Admin: 07/30/17 10:06 Dose: 60 mls/hr Metronidazole (Flagyl) 500 mg in 100 mls @ 100 mls/hr IVPB Q8H [facility] Last Admin: 07/30/17 08:14 Dose: 100 mls/hr Ciprofloxacin (Cipro 400mg/200ml Dsw) 400 mg in 200 mls @ 133 mls/hr IVPB Q12H [facility] Last Admin: 07/30/17 01:17 Dose: 133 mls/hr Potassium Chloride (Potassium Chloride 20 Meq/100 Ml) 20 meq in 100 mls @ 50 mls/hr IVPB ONCE ONE Stop: 07/30/17 13:04 Last Admin: 07/30/17 11:19 Dose: 50 mls/hr Lorazepam (Ativan) 1 mg PO Q4H PRN PRN Reason: Anxiety Magnesium Oxide (Mag-Ox) 800 mg PO TID [facility] Last Admin: 07/30/17 09:57 Dose: 800 mg Multivitamins (Hexavitamin) 1 tab PO DAILY [facility] Last Admin: 07/30/17 09:57 Dose: 1 tab Nicotine (Nicoderm Cq) 1 patch TD DAILY [facility] Last Admin: 07/30/17 09:55 Dose: 1 patch Rifaximin (Xifaxan) 550 mg PO BID [facility] Last Admin: 07/30/17 09:54 Dose: 550 mg Simethicone (Mylicon Chew Tab) 80 mg PO TID [facility] Last Admin: 07/30/17 09:54 Dose: 80 mg Spironolactone (Aldactone) 25 mg PO BID [facility] Last Admin: 07/30/17 09:54 Dose: 25 mg Thiamine HCl (Vitamin B1 Inj) 100 mg IV DAILY [facility] Last Admin: 07/30/17 09:54 Dose: 100 mg Trazodone HCl (Desyrel) 50 mg PO HS [facility] Last Admin: 07/29/17 21:24 Dose: 50 mg - Labs Labs: 07/30/17 07:56 07/30/17 07:56 PT 18.5 SECONDS (9.7-12.2) H 07/30/17 07:56 INR 1.6 07/30/17 07:56 APTT 34 SECONDS (21-34) 07/18/17 13:52 - Constitutional Appears: No Acute Distress - Head Exam Head Exam: ATRAUMATIC, NORMOCEPHALIC - Eye Exam Eye Exam: EOMI, PERRL - Respiratory Exam Respiratory Exam: NORMAL BREATHING PATTERN - Cardiovascular Exam Cardiovascular Exam: REGULAR RHYTHM - GI/Abdominal Exam GI & Abdominal Exam: Soft, Normal Bowel Sounds. absent: Distended, Firm, Guarding, Tenderness, Mass - Extremities Exam Extremities Exam: Normal Inspection Assessment and Plan (1) Alcoholic hepatitis Assessment & Plan: Labs continue to trend down. abstain from alcohol ingestion. Repeat labs next week. Status: Acute (2) Ascites Assessment & Plan: Likely due to above. Status: Acute (3) Diarrhea Assessment & Plan: Etiology remains unclear. Nodularity seen on colonoscopy yesterday and biopsies and fecal studies pending. C diff toxin and Ag both negative. Continue supportive care Status: Acute
[2017-07-30] MEDS: Cholestyramine 4 gm/Pkt UD PO SCH ×2 (12:45→18:30)
--- NOTE | 2017-07-30 15:50 | RAD ---
HISTORY: abdominal distension COMPARISON: CT abdomen and pelvis with IV contrast performed 07/17/17 FINDINGS: Bibasilar atelectasis/infiltrates. BOWEL: Nonobstructive bowel gas pattern. Question lucency at the right hemidiaphragm ; this is favored to reflect artifact and possibly atelectasis at the right lung base rather than free air. BONES: Osseous demineralization. Degenerative changes. OTHER FINDINGS: None. IMPRESSION: Question lucency at the right hemidiaphragm ; this is favored to reflect artifact and possibly atelectasis at the right lung base rather than free air. Recommend clinical correlation. PA and lateral chest x-ray including the upper abdomen recommended for further evaluation if indicated. Findings discussed with patient's RN Natasha on 07/30/17 at 3:33 p.m..
[2017-07-30] MEDS ORDERED: Iohexol 240 (50 ml) PO ONE (20:30)
--- NOTE | 2017-07-31 01:15 | CT ---
EXAM: CT Abdomen and Pelvis With Intravenous Contrast EXAM DATE/TIME: 07/30/2017 4:17 PM CLINICAL HISTORY: 51 years old, male; Signs and symptoms; Bloating; Additional info: Minor watery bowel movements, increased distension TECHNIQUE: Axial computed tomography images of the abdomen and pelvis with intravenous contrast. All CT scans at this facility use one or more dose reduction techniques, viz.: automated exposure control; ma/kV adjustment per patient size (including targeted exams where dose is matched to indication; i.e. head); or iterative reconstruction technique. Coronal and sagittal reformatted images were created and reviewed. CONTRAST: 50 mL of [id number] administered intravenously. COMPARISON: CT - ABD PELVIS IV CONTRAST ONLY 2017-07-17 23:34 FINDINGS: Lower thorax: Heart size is normal. There are coronary artery calcifications. There is decreased attenuation of cardiac borders myocardium. There has been interval increase in the size of the left effusion. There is now a small right effusion. There are atelectatic changes at the lung bases left greater than right. There is small granulomas in the left lower lobe. ABDOMEN: Liver: Hepatic contours are nodular. Attenuation of the liver is heterogeneous. The liver is enlarged. Gallbladder and bile ducts: Gallbladder is incompletely distended. Common duct is unremarkable. Pancreas: Pancreas is atrophic. There is edema in and around the pancreatic head. Spleen: unremarkable Adrenals: unremarkable Kidneys and ureters: unremarkable Stomach and bowel: Stomach is almost completely empty. There is mild duodenal wall thickening. Rotation is normal. There is mild proximal small bowel wall thickening. Small bowel wall thickening decreases distally. There is fluid and air throughout the small bowel. There is contrast in mid and distal small bowel. There is mild terminal ileal wall thickening. There is diffuse colonic wall thickening. Appendix: See stomach and bowel PELVIS: Bladder: unremarkable Reproductive: Seminal vesicles and prostate are unremarkable. ABDOMEN and PELVIS: Intraperitoneal space: There is large volume ascites in the abdomen and pelvis. There is no free air. Bones/joints: There are no acute osseous abnormalities. Soft tissues: unremarkable Vasculature: Vascular structures are unremarkable. Lymph nodes: There is no pathologic adenopathy. IMPRESSION: Enterocolitis; possible pancreatitis; cirrhosis, fatty liver and ascites, similar finding seen on the prior study; bibasilar atelectasis with interval increase in left pleural effusion with new right effusion Additional nonemergent findings as described above.
[2017-07-31] MEDS: Ciprofloxacin 400mg/200ml D5W 400 MG/200 ML BAG IVPB SCH ×2 (01:23→14:41)
[2017-07-31] MEDS: metroNIDAZOLE IV 500 mg/100 ml 500 MG/100 ML BAG IVPB SCH ×3 (07:49→15:35)
[2017-07-31 08:34] LABS: BASO # 0.1 K/uL (0.0-0.2); BASO % 1.1 % (0.0-2.0); EOS % 0.3 % (0.0-4.0); HEMOGLOBIN 8.2 g/dL (12.0-18.0); LYMPH # 1.9 K/uL (1.0-4.3); LYMPH % 17.5 % (20.0-40.0); MEAN CELL VOLUME 89.8 fL (80.0-94.0); MEAN CORPUSCULAR HEMOGLOBIN 30.5 pg (27.0-31.0); MEAN CORPUSCULAR HGB CONC 33.9 g/dL (33.0-37.0); MEAN PLATELET VOLUME 8.9 fL (7.2-11.7); MONO # 0.7 K/uL (0.0-0.8); MONO % 6.3 % (0.0-10.0); NEUT # 8.2 K/uL (1.8-7.0); NEUT % 74.8 % (50.0-75.0); RBC 2.7 Mil/uL (4.40-5.90); RED CELL DISTRIBUTION WIDTH 20.6 % (11.5-14.5); WHITE BLOOD COUNT 10.9 K/uL (4.8-10.8)
[2017-07-31 08:52] LABS: ALBUMIN 2.3 g/dL (3.5-5.0)
[2017-07-31 08:53] LABS: ALB/GLOB RATIO 0.7 (1.0-2.1)
[2017-07-31 08:55] LABS: ALT/SGPT 38 U/L (21-72); AST/SGOT 165 U/L (17-59); BLOOD UREA NITROGEN 4 mg/dL (9-20); CALCIUM 7.3 mg/dl (8.6-10.4); GFR AFRICAN-AMERICAN > 60; GFR NON-AFRICAN AMERICAN > 60; LIPASE 35 U/L (23-300); MAGNESIUM 1.5 mg/dL (1.6-2.3)
[2017-07-31] MEDS: Enoxaparin 40 mg Syringe SC SCH (10:11)
[2017-07-31] MEDS: Magnesium Oxide 400 mg Tab UD PO SCH ×3 (10:11→18:24)
[2017-07-31] MEDS: Multiple Vitamins Tab PO SCH (10:11)
[2017-07-31] MEDS: Cholestyramine 4 gm/Pkt UD PO SCH ×2 (10:12→17:56)
[2017-07-31] MEDS: Simethicone 80 mg Chewtab PO SCH ×3 (10:16→17:55)
[2017-07-31] MEDS: Potassium Chloride 20 mEq ER Tab PO SCH ×2 (12:05→14:46)
--- NOTE | 2017-07-31 13:00 | CP.PCM.PN ---
Subjective - Date & Time of Evaluation Date of Evaluation: 07/31/17 Time of Evaluation: 12:57 - Subjective Subjective: COVERING DR VIDAL Still with diarrhea but somewhat less Pathology pending Objective - Vital Signs/Intake and Output Vital Signs (last 24 hours): Temp Pulse Resp BP Pulse Ox 97.3 F L 96 H 20 127/79 97 07/31/17 07:50 07/31/17 12:52 07/31/17 07:50 07/31/17 07:50 07/31/17 07:50 Intake and Output: 07/31/17 07/31/17 06:59 18:59 Intake Total 700 Output Total 500 Balance 200 - Medications Medications: Current Medications Cholestyramine Resin (Questran) [facility] Last Admin: 07/31/17 10:12 Dose: 4 gm Enoxaparin Sodium (Lovenox) 40 mg SC DAILY [facility] Last Admin: 07/31/17 10:11 Dose: 40 mg Famotidine (Pepcid) 20 mg PO BID [facility] Last Admin: 07/31/17 10:11 Dose: 20 mg Folic Acid (Folic Acid) 1 mg PO DAILY [facility] Last Admin: 07/31/17 10:11 Dose: 1 mg Furosemide (Lasix) 40 mg PO DAILY [facility] Last Admin: 07/29/17 09:51 Dose: Not Given Metronidazole (Flagyl) 500 mg in 100 mls @ 100 mls/hr IVPB Q8H [facility] Last Admin: 07/31/17 07:49 Dose: 100 mls/hr Ciprofloxacin (Cipro 400mg/200ml Dsw) 400 mg in 200 mls @ 133 mls/hr IVPB Q12H [facility] Last Admin: 07/31/17 01:23 Dose: 133 mls/hr Lorazepam (Ativan) 1 mg PO Q4H PRN PRN Reason: Anxiety Magnesium Oxide (Mag-Ox) 800 mg PO TID [facility] Last Admin: 07/31/17 10:11 Dose: 800 mg Multivitamins (Hexavitamin) 1 tab PO DAILY [facility] Last Admin: 07/31/17 10:11 Dose: 1 tab Nicotine (Nicoderm Cq) 1 patch TD DAILY [facility] Last Admin: 07/31/17 10:12 Dose: 1 patch Potassium Chloride (K-Dur 20 Meq Er Tab) 40 meq PO Q4H [facility] Stop: 07/31/17 15:46 Last Admin: 07/31/17 12:05 Dose: 40 meq Rifaximin (Xifaxan) 550 mg PO BID [facility] Last Admin: 07/31/17 10:13 Dose: 550 mg Simethicone (Mylicon Chew Tab) 80 mg PO TID [facility] Last Admin: 07/31/17 10:16 Dose: 80 mg Spironolactone (Aldactone) 25 mg PO BID [facility] Last Admin: 07/31/17 10:11 Dose: 25 mg Thiamine HCl (Vitamin B1 Tab) 100 mg PO BID [facility] Last Admin: 07/31/17 10:11 Dose: 100 mg - Labs Labs: 07/31/17 08:22 07/31/17 08:22 PT 18.5 SECONDS (9.7-12.2) H 07/30/17 07:56 INR 1.6 07/30/17 07:56 APTT 34 SECONDS (21-34) 07/18/17 13:52 - Constitutional Appears: No Acute Distress - Head Exam Head Exam: ATRAUMATIC, NORMOCEPHALIC - Respiratory Exam Respiratory Exam: NORMAL BREATHING PATTERN - Cardiovascular Exam Cardiovascular Exam: REGULAR RHYTHM - GI/Abdominal Exam GI & Abdominal Exam: Soft, Normal Bowel Sounds. absent: Distended, Tenderness, Rebound - Extremities Exam Extremities Exam: Normal Inspection Assessment and Plan (1) Alcoholic hepatitis Assessment & Plan: No real change in LFTs. Continue supportive care and abstinence. Status: Acute (2) Ascites Status: Acute (3) Diarrhea Assessment & Plan: Awaiting biopsies from colonoscopy On Cholestyramine bid as bile acid binder, improves diarrhea. Status: Acute
--- NOTE | 2017-07-31 15:17 | CP.PCM.PN ---
Subjective - Date & Time of Evaluation Date of Evaluation: 07/31/17 Time of Evaluation: 13:00 - Subjective Subjective: Seen and examined Pt was interviewed with the help of RN leighs Eliot "Feels Better today" Knows that he is at [facility],no able to tell date, month and year. Had totla 4 Bm,yellow and watery as per the pt,no nausea,no vomiting. lying comfortable mild right side abdominal pain. Objective - Vital Signs/Intake and Output Vital Signs (last 24 hours): Temp Pulse Resp BP Pulse Ox 97.3 F L 96 H 20 127/79 97 07/31/17 07:50 07/31/17 12:52 07/31/17 07:50 07/31/17 07:50 07/31/17 07:50 Intake and Output: 07/31/17 07/31/17 06:59 18:59 Intake Total 700 600 Output Total 500 Balance 200 600 - Medications Medications: Current Medications Cholestyramine Resin (Questran) 4 gm PO BIDPC [facility] Last Admin: 07/31/17 10:12 Dose: 4 gm Enoxaparin Sodium (Lovenox) 40 mg SC DAILY [facility] Last Admin: 07/31/17 10:11 Dose: 40 mg Famotidine (Pepcid) 20 mg PO BID [facility] Last Admin: 07/31/17 10:11 Dose: 20 mg Folic Acid (Folic Acid) 1 mg PO DAILY [facility] Last Admin: 07/31/17 10:11 Dose: 1 mg Furosemide (Lasix) 40 mg PO DAILY [facility] Last Admin: 07/29/17 09:51 Dose: Not Given Metronidazole (Flagyl) 500 mg in 100 mls @ 100 mls/hr IVPB Q8H [facility] Last Admin: 07/31/17 07:49 Dose: 100 mls/hr Ciprofloxacin (Cipro 400mg/200ml Dsw) 400 mg in 200 mls @ 133 mls/hr IVPB Q12H [facility] Last Admin: 07/31/17 14:41 Dose: 133 mls/hr Lorazepam (Ativan) 1 mg PO Q4H PRN PRN Reason: Anxiety Magnesium Oxide (Mag-Ox) 800 mg PO TID [facility] Last Admin: 07/31/17 14:44 Dose: 800 mg Multivitamins (Hexavitamin) 1 tab PO DAILY [facility] Last Admin: 07/31/17 10:11 Dose: 1 tab Nicotine (Nicoderm Cq) 1 patch TD DAILY [facility] Last Admin: 07/31/17 10:12 Dose: 1 patch Potassium Chloride (K-Dur 20 Meq Er Tab) 40 meq PO Q4H [facility] Stop: 07/31/17 15:46 Last Admin: 07/31/17 14:46 Dose: 40 meq Rifaximin (Xifaxan) 550 mg PO BID [facility] Last Admin: 07/31/17 10:13 Dose: 550 mg Simethicone (Mylicon Chew Tab) 80 mg PO TID [facility] Last Admin: 07/31/17 15:04 Dose: 80 mg Spironolactone (Aldactone) 25 mg PO BID [facility] Last Admin: 07/31/17 10:11 Dose: 25 mg Thiamine HCl (Vitamin B1 Tab) 100 mg PO BID [facility] Last Admin: 07/31/17 10:11 Dose: 100 mg - Labs Labs: 07/31/17 08:22 07/31/17 08:22 PT 18.5 SECONDS (9.7-12.2) H 07/30/17 07:56 INR 1.6 07/30/17 07:56 APTT 34 SECONDS (21-34) 07/18/17 13:52 - Constitutional Appears: Non-toxic - Head Exam Head Exam: NORMAL INSPECTION - Eye Exam Eye Exam: Normal appearance - ENT Exam ENT Exam: Mucous Membranes Moist - Neck Exam Neck Exam: Normal Inspection - Respiratory Exam Respiratory Exam: Clear to Ausculation Bilateral - Cardiovascular Exam Cardiovascular Exam: REGULAR RHYTHM - GI/Abdominal Exam GI & Abdominal Exam: Distended, Soft, Normal Bowel Sounds - Extremities Exam Extremities Exam: Full ROM - Back Exam Back Exam: NORMAL INSPECTION - Neurological Exam Neurological Exam: Altered, Awake - Psychiatric Exam Psychiatric exam: Normal Mood - Skin Skin Exam: Intact Assessment and Plan - Assessment and Plan (Free Text) Plan: 1.Colitis and Diarrhea GI follow up appreciated He has No leukocytosis, afebrile,giardia negative, stool ova and parasite negative, stool culture negative , Blood culture (07/18/17) and (07/21/17),negative HIV and hep panel,fecal fat study is normal ,c dif neg x 3 Stool ova and parasite (07/18/17): no ova and parasite EGD (07/18/17): Small hiatus hernia. Gastritis, Scalloped mucosa was found duodenum, suspicious for celiac disease. Biopsied Colonoscopy (07/28/17): internal hemorrhoids. Mucosal nodule in the sigmoid colon , in the tranverse colon, and in the ascending colon.Follow biopsy Imaging-CT abd/pelvis with IV contrast 07/17: Significant bowel wall thickening involving the colon, appearance most consistent with acute colitis, cannot exclude underlying neoplasm. Small to moderate ascites. Fatty infiltration of the liver. Heterogeneous appearance to hepatic parenchyma. Some of appearance may be due to transient hepatic attenuation differences, concern for underlying lesion. Upright Abdominal Xray (07/30/17): luceny in the right hemidiaphragm, possibly atelectasis at the right lung base rather than free air. Meds:On Cipro 400mg IVPB Q12H (active since 07/18/17),Flagyl 500 IV Q8H (active since 07/18/17) Started on Cholestyramine bile acid binder 2.Alcohol abuse/alcohol intoxication/alcohol withdrawal Improving Dr. Man, help appreciated follow LFT , * Thiamine 100 mg daily * Folic acid 1 mg daily 3. Ascites and hepatic encephalopathy s/p Paracentesis--> 07/19/17--> 2.1 L straw colored fluid removed. fluid no growth Follow amonia as needed Continue xifaxan 550mg po BID,not on lactulose due to diarrhea Started Lasix 40 mg PO daily and Aldactone 25mg po BID 4. Hypokalemia and Hypomagnesemia * follow levels with supplementation 5. Anemia * Heme/onc consulted, Dr. Tran help appreciated * secondary to bone marrow suppression from ETOH * patient transfused 1 u PRBC on 07/20/17 * stool occult blood negative 6.Tobacco use disorder * Nicotine patch 7 . S/P Urinary Retention * patient urinating in urinal today * monitor urine output 8. Coagulopathy Continue to monitor 9.Prophylactic Measure * Pepcid 20mg po BID * SCDs * Lovenox 40mg subq daily * PT/OT
[2017-08-01] MEDS: metroNIDAZOLE IV 500 mg/100 ml 500 MG/100 ML BAG IVPB SCH ×3 (00:03→17:35)
[2017-08-01] MEDS: Ciprofloxacin 400mg/200ml D5W 400 MG/200 ML BAG IVPB SCH ×2 (01:02→14:40)
[2017-08-01 01:07] LABS: CK-MB 0.52 ng/mL (0.0-3.38)
[2017-08-01 08:01] LABS: BASO # 0.1 K/uL (0.0-0.2); BASO % 0.7 % (0.0-2.0); EOS % 0.1 % (0.0-4.0); HEMOGLOBIN 8.3 g/dL (12.0-18.0); LYMPH % 16.6 % (20.0-40.0); MEAN CELL VOLUME 89.7 fL (80.0-94.0); MEAN CORPUSCULAR HEMOGLOBIN 30.1 pg (27.0-31.0); MEAN CORPUSCULAR HGB CONC 33.5 g/dL (33.0-37.0); MEAN PLATELET VOLUME 8.7 fL (7.2-11.7); MONO # 0.7 K/uL (0.0-0.8); MONO % 5.9 % (0.0-10.0); NEUT # 9.3 K/uL (1.8-7.0); NEUT % 76.7 % (50.0-75.0); RBC 2.77 Mil/uL (4.40-5.90); WHITE BLOOD COUNT 12.2 K/uL (4.8-10.8)
--- NOTE | 2017-08-01 08:10 | CP.PCM.PN ---
<Tima Beth - Last Filed: 08/01/17 18:17> Subjective - Date & Time of Evaluation Date of Evaluation: 08/01/17 Time of Evaluation: 08:00 - Subjective Subjective: Medicine progress note for Dr. Huitron Patient seen and examined at bedside. Patient admits to 6 episodes of watery stools today and 10 episodes yesterday. Patient admits to continued abdominal tenderness but states that he is otherwise feeling well. Patient's stool was witnessed as green and mucoid, watery with some formed element. Objective - Vital Signs/Intake and Output Vital Signs (last 24 hours): Temp Pulse Resp BP Pulse Ox 98.5 F 102 H 18 106/78 97 07/31/17 23:50 07/31/17 23:50 07/31/17 23:50 07/31/17 23:50 07/31/17 23:50 Intake and Output: 08/01/17 08/01/17 06:59 18:59 Output Total 140 Balance -140 - Medications Medications: Current Medications Cholestyramine Resin (Questran) 4 gm PO BIDPC [facility] Last Admin: 07/31/17 17:56 Dose: 4 gm Enoxaparin Sodium (Lovenox) 40 mg SC DAILY [facility] Last Admin: 07/31/17 10:11 Dose: 40 mg Famotidine (Pepcid) 20 mg PO BID [facility] Last Admin: 07/31/17 17:55 Dose: 20 mg Folic Acid (Folic Acid) 1 mg PO DAILY [facility] Last Admin: 07/31/17 10:11 Dose: 1 mg Furosemide (Lasix) 40 mg PO DAILY [facility] Last Admin: 07/29/17 09:51 Dose: Not Given Metronidazole (Flagyl) 500 mg in 100 mls @ 100 mls/hr IVPB Q8H [facility] Last Admin: 08/01/17 00:03 Dose: 100 mls/hr Ciprofloxacin (Cipro 400mg/200ml Dsw) 400 mg in 200 mls @ 133 mls/hr IVPB Q12H [facility] Last Admin: 08/01/17 01:02 Dose: 133 mls/hr Lorazepam (Ativan) 1 mg PO Q4H PRN PRN Reason: Anxiety Magnesium Oxide (Mag-Ox) 800 mg PO TID [facility] Last Admin: 07/31/17 18:24 Dose: 800 mg Multivitamins (Hexavitamin) 1 tab PO DAILY [facility] Last Admin: 07/31/17 10:11 Dose: 1 tab Nicotine (Nicoderm Cq) 1 patch TD DAILY [facility] Last Admin: 07/31/17 10:12 Dose: 1 patch Rifaximin (Xifaxan) 550 mg PO BID [facility] Last Admin: 07/31/17 17:55 Dose: 550 mg Simethicone (Mylicon Chew Tab) 80 mg PO TID [facility] Last Admin: 07/31/17 17:55 Dose: 80 mg Spironolactone (Aldactone) 25 mg PO BID [facility] Last Admin: 07/31/17 17:55 Dose: 25 mg Thiamine HCl (Vitamin B1 Tab) 100 mg PO BID [facility] Last Admin: 07/31/17 17:55 Dose: 100 mg - Labs Labs: 07/31/17 08:22 07/31/17 08:22 PT 18.5 SECONDS (9.7-12.2) H 07/30/17 07:56 INR 1.6 07/30/17 07:56 APTT 34 SECONDS (21-34) 07/18/17 13:52 - Constitutional Appears: No Acute Distress - Head Exam Head Exam: ATRAUMATIC, NORMOCEPHALIC - Eye Exam Eye Exam: EOMI, Normal appearance - ENT Exam ENT Exam: Mucous Membranes Moist - Respiratory Exam Respiratory Exam: Clear to Ausculation Bilateral. absent: Rales, Rhonchi, Wheezes - Cardiovascular Exam Cardiovascular Exam: REGULAR RHYTHM, +S1, +S2 - GI/Abdominal Exam GI & Abdominal Exam: Distended, Soft, Tenderness (right sided tenderness worse in upper quadrant than the lower quadrant), Normal Bowel Sounds - Extremities Exam Extremities Exam: absent: Pedal Edema - Back Exam Additional comments: Excoriation on the gluteals and sacral area due to incontinence of loose stools. - Neurological Exam Neurological Exam: Alert, Awake - Psychiatric Exam Psychiatric exam: Normal Affect, Normal Mood - Skin Skin Exam: Dry, Warm Assessment and Plan - Assessment and Plan (Free Text) Plan: 1.Colitis and Diarrhea No leukocytosis, afebrile giardia negative, stool ova and parasite negative, stool culture negative blood culture negative negative HIV and hep panel fecal fat study: normal c dif neg x 3 Desitin cream ordered for gluteal and sacral excoriations due to the uncontrolled loose stools Imaging: CT abd/pelvis with IV contrast 07/17: Significant bowel wall thickening involving the colon, appearance most consistent with acute colitis, cannot exclude underlying neoplasm. Small to moderate ascites. Fatty infiltration of the liver. Heterogeneous appearance to hepatic parenchyma. Some of appearance may be due to transient hepatic attenuation differences, concern for underlying lesion. Meds: Cipro 400 IV daily Flagyl 500 IV Q8 Endoscopy (07/28): small hiatal hernia, patchy mild inflammation in gastric antrum biopsies, scalloped mucosa found in duodenum, suspicious for celiac disease- biopsied Colonoscopy (07/28): internal hemorrhoids, mucosal nodule in the sigmoid colon, in transverse colon and in the ascending colon- biopsied f/u upright abdominal xray and repeat c diff toxin Per Dr. South, he suspects pancreatic insufficiency as possible cause due to low stool pancreatic elastase and ordered an MRCP f/u MRCP Dr. South consulted Dr. Guerrero (help appreciated) for evaluation of possible chronic pancreatitis and possible EUS work up 2.Alcohol abuse/alcohol intoxication/alcohol withdrawal Elevated serum alcohol on admission 292 Seizure and aspiration precautions Ativan 1mg q4h prn for agitation Thiamine 100 mg daily Folic acid 1 mg daily Psych consult, Dr. Man, help appreciated 3. Ascites and hepatic encephalopathy Consult GI, Dr South CT abd/pelvis shows small to moderate ascites Paracentesis done today 07/19/17 with 2.1 L straw colored fluid removed. * peritoneal fluid no growth * Fluid WBC: 147, RBC: 216, neut: 41, lymph: 43, monocyte/macrophage: 15 Albumin 12.5 gm x 2 given on 07/21/17 ammonia level: increased to 64 on 07/22/17 Continue xifaxan 550mg po BID,not on lactulose due to diarrhea no paracentesis at this time started Lasix 40 mg po daily and Aldactone 25mg po BID on 07/25/17 Lasix held on 07/29/17 due to hypotension, restart when blood pressure increases 4.Hypokalemia and Hypomagnesemia follow levels with supplementation 5. 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 Tran help appreciated stool occult blood negative 6.Tobacco use disorder Nicotine patch 7 . S/P Urinary Retention patient urinating in urinal today monitor urine output 8. Elevated INR trending down Vitamin K 5mg po daily for a total of 5 days (day 1 on 07/26, last dose to be given on 07/30) continue to monitor 9.Prophylactic Measure/supportive care Pepcid 20mg po BID SCDs, Lovenox 40mg sc daily Simethicone 80mg po BID PT/OT Case DW Dr. Tomy Beth PGY-1 <Ruth Huitron - Last Filed: 08/03/17 19:19> Objective - Vital Signs/Intake and Output Vital Signs (last 24 hours): Temp Pulse Resp BP Pulse Ox 98.5 F 99 H 20 100/67 97 08/01/17 16:40 08/01/17 16:40 08/01/17 16:40 08/01/17 16:40 08/01/17 16:40 Intake and Output: 08/01/17 08/01/17 06:59 18:59 Intake Total 700 Output Total 140 Balance -140 700 - Medications Medications: Current Medications Cholestyramine Resin (Questran) 4 gm PO BIDPC [facility] Last Admin: 08/01/17 09:21 Dose: 4 gm Enoxaparin Sodium (Lovenox) 40 mg SC DAILY [facility] Last Admin: 08/01/17 09:21 Dose: 40 mg Folic Acid (Folic Acid) 1 mg PO DAILY [facility] Last Admin: 08/01/17 09:21 Dose: 1 mg Furosemide (Lasix) 40 mg PO DAILY [facility] Last Admin: 07/29/17 09:51 Dose: Not Given Metronidazole (Flagyl) 500 mg in 100 mls @ 100 mls/hr IVPB Q8H [facility] Last Admin: 08/01/17 09:09 Dose: 100 mls/hr Ciprofloxacin (Cipro 400mg/200ml Dsw) 400 mg in 200 mls @ 133 mls/hr IVPB Q12H [facility] Last Admin: 08/01/17 14:40 Dose: 133 mls/hr Lorazepam (Ativan) 1 mg PO Q4H PRN PRN Reason: Anxiety Magnesium Oxide (Mag-Ox) 800 mg PO TID [facility] Last Admin: 08/01/17 14:47 Dose: Not Given Multivitamins (Hexavitamin) 1 tab PO DAILY [facility] Last Admin: 08/01/17 09:21 Dose: 1 tab Nicotine (Nicoderm Cq) 1 patch TD DAILY [facility] Last Admin: 08/01/17 09:21 Dose: 1 patch Pantoprazole Sodium (Protonix Ec Tab) 40 mg PO DAILY [facility] Petrolatum (Desitin Original) 1 gm TOP TID [facility] Last Admin: 08/01/17 15:21 Dose: 1 applic Simethicone (Mylicon Chew Tab) 80 mg PO TID [facility] Last Admin: 08/01/17 14:41 Dose: 80 mg Spironolactone (Aldactone) 50 mg PO BID [facility] Thiamine HCl (Vitamin B1 Tab) 100 mg PO BID [facility] Last Admin: 08/01/17 09:20 Dose: 100 mg - Labs Labs: 08/01/17 07:50 08/01/17 07:50 PT 18.5 SECONDS (9.7-12.2) H 07/30/17 07:56 INR 1.6 07/30/17 07:56 APTT 34 SECONDS (21-34) 07/18/17 13:52 Attending/Attestation - Attestation I have personally seen and examined this patient.: Yes I have fully participated in the care of the patient.: Yes I have reviewed all pertinent clinical information, including history, physical exam and plan: Yes Notes (Text): patient was seen and examined c/o diarrhea d/w resident and I agree with the documentation of the assessment and the plan
[2017-08-01 08:30] LABS: ALB/GLOB RATIO 0.7 (1.0-2.1); ALBUMIN 2.2 g/dL (3.5-5.0); ALT/SGPT 50 U/L (21-72); AST/SGOT 184 U/L (17-59); BLOOD UREA NITROGEN 4 mg/dL (9-20); CALCIUM 6.8 mg/dl (8.6-10.4); GFR AFRICAN-AMERICAN > 60; GFR NON-AFRICAN AMERICAN > 60; MAGNESIUM 1.3 mg/dL (1.6-2.3)
[2017-08-01] MEDS: Simethicone 80 mg Chewtab PO SCH ×3 (09:20→18:59)
[2017-08-01] MEDS: Multiple Vitamins Tab PO SCH (09:21)
[2017-08-01] MEDS: Cholestyramine 4 gm/Pkt UD PO SCH ×2 (09:21→18:58)
[2017-08-01] MEDS: Enoxaparin 40 mg Syringe SC SCH (09:21)
[2017-08-01] MEDS ORDERED: Potassium Chloride 20 mEq ER Tab PO ONE ×2 (09:57→14:15)
--- NOTE | 2017-08-01 10:11 | CP.PCM.PN ---
Subjective - Date & Time of Evaluation Date of Evaluation: 08/01/17 Time of Evaluation: 10:08 - Subjective Subjective: Patient remains more alert. He denies having nausea, vomiting. Abdominal pain in RUQ is unchanged. Diarrhea persists. Objective - Vital Signs/Intake and Output Vital Signs (last 24 hours): Temp Pulse Resp BP Pulse Ox 98.8 F 68 20 108/80 98 08/01/17 08:31 08/01/17 08:31 08/01/17 08:31 08/01/17 08:31 08/01/17 08:31 Intake and Output: 08/01/17 08/01/17 06:59 18:59 Output Total 140 Balance -140 - Medications Medications: Current Medications Cholestyramine Resin (Questran) 4 gm PO BIDPC [facility] Last Admin: 08/01/17 09:21 Dose: 4 gm Enoxaparin Sodium (Lovenox) 40 mg SC DAILY [facility] Last Admin: 08/01/17 09:21 Dose: 40 mg Famotidine (Pepcid) 20 mg PO BID [facility] Last Admin: 08/01/17 09:21 Dose: 20 mg Folic Acid (Folic Acid) 1 mg PO DAILY [facility] Last Admin: 08/01/17 09:21 Dose: 1 mg Furosemide (Lasix) 40 mg PO DAILY [facility] Last Admin: 07/29/17 09:51 Dose: Not Given Metronidazole (Flagyl) 500 mg in 100 mls @ 100 mls/hr IVPB Q8H [facility] Last Admin: 08/01/17 09:09 Dose: 100 mls/hr Ciprofloxacin (Cipro 400mg/200ml Dsw) 400 mg in 200 mls @ 133 mls/hr IVPB Q12H [facility] Last Admin: 08/01/17 01:02 Dose: 133 mls/hr Magnesium Sulfate/Dextrose (Magnesium Sulfate 1 Gm/100 Ml D5w) 1 gm in 100 mls @ 200 mls/hr IVPB Q30M [facility] Stop: 08/01/17 10:59 Lorazepam (Ativan) 1 mg PO Q4H PRN PRN Reason: Anxiety Magnesium Oxide (Mag-Ox) 800 mg PO TID [facility] Last Admin: 07/31/17 18:24 Dose: 800 mg Multivitamins (Hexavitamin) 1 tab PO DAILY [facility] Last Admin: 08/01/17 09:21 Dose: 1 tab Nicotine (Nicoderm Cq) 1 patch TD DAILY [facility] Last Admin: 08/01/17 09:21 Dose: 1 patch Potassium Chloride (K-Dur 20 Meq Er Tab) 20 meq PO ONCE ONE Stop: 08/01/17 09:58 Rifaximin (Xifaxan) 550 mg PO BID [facility] Last Admin: 08/01/17 09:21 Dose: 550 mg Simethicone (Mylicon Chew Tab) 80 mg PO TID [facility] Last Admin: 08/01/17 09:20 Dose: 80 mg Spironolactone (Aldactone) 25 mg PO BID [facility] Last Admin: 08/01/17 09:20 Dose: 25 mg Thiamine HCl (Vitamin B1 Tab) 100 mg PO BID [facility] Last Admin: 08/01/17 09:20 Dose: 100 mg - Labs Labs: 08/01/17 07:50 08/01/17 07:50 PT 18.5 SECONDS (9.7-12.2) H 07/30/17 07:56 INR 1.6 07/30/17 07:56 APTT 34 SECONDS (21-34) 07/18/17 13:52 - Constitutional Appears: No Acute Distress - Head Exam Head Exam: ATRAUMATIC, NORMOCEPHALIC - Eye Exam Eye Exam: EOMI, PERRL - Neck Exam Neck Exam: absent: Lymphadenopathy, Thyromegaly - Respiratory Exam Respiratory Exam: NORMAL BREATHING PATTERN. absent: Rales, Rhonchi, Wheezes - Cardiovascular Exam Cardiovascular Exam: REGULAR RHYTHM, +S1, +S2. absent: Gallop, Rubs, Murmur - GI/Abdominal Exam GI & Abdominal Exam: Distended, Soft, Normal Bowel Sounds. absent: Tenderness, Mass - Rectal Exam Rectal Exam: Deferred - Extremities Exam Extremities Exam: absent: Calf Tenderness, Pedal Edema Assessment and Plan (1) Alcoholic hepatitis Assessment & Plan: LIver continues to improve slowly: TBILI down to 2.5, PT 18.5, INR 1.6. Status: Acute (2) Diarrhea Assessment & Plan: Diarrhea persists. Stool cultures have been non-diagnostic. We are awaiting the results of colon biopsies. However, fecal elastase is low at 52, consistent with pancreatic exocrine insufficiency. No anatomic abnormalities of the pancreatic duct have been described on CT. Will order MRCP; consider EUS Status: Acute (3) Ascites Status: Acute
--- NOTE | 2017-08-01 12:30 | CP.PCM.CON ---
<Laurie Suarez - Last Filed: 08/01/17 15:18> History of Present Illness - History of Present Illness History of Present Illness: GI consult note for Dr Guerrero's service. Reason for consult: Low fecal elastase, r/o chronic pancreatitis Patient is a 51 y/o male with PMH of alcohol abuse presented on 07/17 with sharp right upper quadrant abdominal pain and 8-10 bouts of watery, non- bloody diarrhea. Gi is being consulted for low fecal elastase. On presentation, patient had a CT abdomen and pelvis revealing acute colitis, small to moderate ascites and fatty infiltration of the liver. Patients discriminant function on 07/18/17 was 23.8 points, with MELD score of 16 points. Patient was started on antibiotics for colitis. Patient underwent paracentesis on the with the removal of 2.1 litters of ascetic fluid, SBP was rule out. Admission labs with AST of 200s, and normal ALT, T micki 2.2. Patient was also anemic with hemoglobin of 8.3 with electrolytes imbalance. Alcohol level was 292. Patient became agitated and altered at some point during the admission likely due to alcohol DTs versus hepatic encephalopathy with elevated ammonia level. Patient underwent alcohol detox, and was also started on rifaximin. Patient underwent hep panel with negative results. Patient underwent EGD and colonoscopy 07/28/16 revealing small hiatal hernia, gastritis, scalloped mucosa in the duodenum. On the colonoscopy patient was found to have internal hemorrhoids, mucosal nodule in the sigmoid, and transverse colon. Gastric biopsy revealed gastritis with no h pylo on the pathology report. Pending colonoscopy pathology report. Patients abdominal pain somewhat persisted with persistent diarrhea. Stool cultures were normal. Repeat CT abdomen and pelvis on 07/30 revealing pancreatitis, cirrhosis, fatty liver and ascites with pleural effusion and atelectasis. Stool pancreatic elastase was low at 52, thus Dr. Guerrero was consulted to r/o chronic pancreatitis. Patient was seen and examined at the bed side. Patient states the abdominal pain is still persistent. States the abdominal pain is more diffuse. Pt states he is still experiencing watery, non-bloody diarrhea, had 5 episodes so far today. Admits to nausea, denies vomiting. Denies sob, or chest pain. Denies fever, but admits to occasional chills. As of today, Meld score as of 1/8 is 25 points, with discriminant function of 53.1. AST has been fluctuating, went down to 77, however trended up to 184 today. Electrolytes has also been worsening with hyponatremia, hypomagnesemia and hypokalemia. PMH: Alcohol abuse PSH: Denies FMH: Denies Social: states he chews tobacco since age of 18, drinks 3 glasses of rum daily for the past 15 years. Homeless. Home meds: None Allergy: NKDA Review of Systems - Constitutional Constitutional: Chills, Fatigue, Weakness. absent: Fever, Headache, Increased Appetite, Malaise - EENT Eyes: absent: Blurred Vision, Change in Vision Ears: absent: Dizziness Nose/Mouth/Throat: absent: Bleeding Gums, Dysphagia, Sore Throat - Cardiovascular Cardiovascular: absent: Chest Pain, Chest Pain at Rest, Dyspnea, Dyspnea on Exertion, Edema - Respiratory Respiratory: absent: Cough, Hemoptysis, Wheezing - Gastrointestinal Gastrointestinal: Abdominal Pain, Diarrhea, Nausea. absent: Belching, Bloating , Change in Bowel Habits, Coffee Ground Emesis, Constipation, Cramping, Early Satiety, Excessive Flatus, Fecal Incontinence, Heartburn, Hematemesis, Hematochezia, Melena, Odynophagia, Temesmus, Vomiting - Genitourinary Genitourinary: absent: Difficulty Urinating, Dysuria, Hematuria - Musculoskeletal Musculoskeletal: absent: Arthralgias, Atrophy, Back Pain - Integumentary Integumentary: absent: Rash - Neurological Neurological: absent: Dizziness, Syncope - Psychiatric Psychiatric: absent: Confusion, Depression - Endocrine Endocrine: Fatigue. absent: Polyphagia, Polyuria Past Patient History - Infectious Disease Hx of Infectious Diseases: None - Tetanus Immunizations Tetanus Immunization: Unknown - Past Medical History & Family History Past Medical History?: Yes - Past Social History Smoking Status: Never Smoked Chewing Tobacco Use: Yes Alcohol: > 2 Drinks/Day Drugs: Denies Home Situation {Lives}: Homeless - CARDIAC Hx Hypertension: Yes - PULMONARY Hx Respiratory Disorders: No - NEUROLOGICAL Hx Neurological Disorder: No - HEENT Hx HEENT Problems: No - RENAL Hx Chronic Kidney Disease: No - ENDOCRINE/METABOLIC Hx Endocrine Disorders: No - HEMATOLOGICAL/ONCOLOGICAL Hx Blood Disorders: No - INTEGUMENTARY Hx Dermatological Problems: No - MUSCULOSKELETAL/RHEUMATOLOGICAL Hx Musculoskeletal Disorders: No Hx Falls: No - GASTROINTESTINAL Hx Gastrointestinal Disorders: Yes Hx Liver Failure: Yes Other/Comment: LIVER CIRRHOSIS AND ASCITES. - GENITOURINARY/GYNECOLOGICAL Hx Genitourinary Disorders: No - PSYCHIATRIC Hx Substance Use: No - SURGICAL HISTORY Hx Surgeries: No - ANESTHESIA Hx Anesthesia: No Meds Allergies/Adverse Reactions: Allergies Allergy/AdvReac Type Severity Reaction Status Date / Time No Known Allergies Allergy Verified 06/22/17 20:40 - Medications Medications: Current Medications Cholestyramine Resin (Questran) 4 gm PO BIDPC [facility] Last Admin: 08/01/17 09:21 Dose: 4 gm Enoxaparin Sodium (Lovenox) 40 mg SC DAILY [facility] Last Admin: 08/01/17 09:21 Dose: 40 mg Famotidine (Pepcid) 20 mg PO BID [facility] Last Admin: 08/01/17 09:21 Dose: 20 mg Folic Acid (Folic Acid) 1 mg PO DAILY [facility] Last Admin: 08/01/17 09:21 Dose: 1 mg Furosemide (Lasix) 40 mg PO DAILY [facility] Last Admin: 07/29/17 09:51 Dose: Not Given Metronidazole (Flagyl) 500 mg in 100 mls @ 100 mls/hr IVPB Q8H [facility] Last Admin: 08/01/17 09:09 Dose: 100 mls/hr Ciprofloxacin (Cipro 400mg/200ml Dsw) 400 mg in 200 mls @ 133 mls/hr IVPB Q12H [facility] Last Admin: 08/01/17 01:02 Dose: 133 mls/hr Lorazepam (Ativan) 1 mg PO Q4H PRN PRN Reason: Anxiety Magnesium Oxide (Mag-Ox) 800 mg PO TID [facility] Last Admin: 07/31/17 18:24 Dose: 800 mg Multivitamins (Hexavitamin) 1 tab PO DAILY [facility] Last Admin: 08/01/17 09:21 Dose: 1 tab Nicotine (Nicoderm Cq) 1 patch TD DAILY [facility] Last Admin: 08/01/17 09:21 Dose: 1 patch Rifaximin (Xifaxan) 550 mg PO BID [facility] Last Admin: 08/01/17 09:21 Dose: 550 mg Simethicone (Mylicon Chew Tab) 80 mg PO TID [facility] Last Admin: 08/01/17 09:20 Dose: 80 mg Spironolactone (Aldactone) 25 mg PO BID [facility] Last Admin: 08/01/17 09:20 Dose: 25 mg Thiamine HCl (Vitamin B1 Tab) 100 mg PO BID [facility] Last Admin: 08/01/17 09:20 Dose: 100 mg Physical Exam - Constitutional Appears: No Acute Distress, Older Than Stated Age, Cachectic, Chronically Ill - Head Exam Head Exam: ATRAUMATIC, NORMAL INSPECTION, NORMOCEPHALIC - Eye Exam Eye Exam: EOMI, PERRL, Scleral icterus. absent: Normal appearance Pupil Exam: NORMAL ACCOMODATION - ENT Exam ENT Exam: Mucous Membranes Dry - Neck Exam Neck exam: Positive for: Normal Inspection. Negative for: Lymphadenopathy - Respiratory Exam Respiratory Exam: Rales (mild at the bases), NORMAL BREATHING PATTERN. absent: Prolonged Expiratory Phase, Rhonchi, Wheezes, Respiratory Distress, Stridor - Cardiovascular Exam Cardiovascular Exam: Tachycardia, Irregular Rhythm, +S1, +S2, Systolic Murmur. absent: Clicks, Gallop, JVD, Rubs - GI/Abdominal Exam GI & Abdominal Exam: Distended, Firm, Normal Bowel Sounds, Rigid, Tenderness ( ruq). absent: Guarding, Rebound Additional comments: + fluid wave, + ecchymosis on the abdomen. - Extremities Exam Extremities exam: Positive for: normal inspection. Negative for: pedal edema, tenderness - Back Exam Back exam: NORMAL INSPECTION - Neurological Exam Neurological exam: Alert, Oriented x3, Reflexes Normal - Psychiatric Exam Psychiatric exam: Normal Affect, Normal Mood - Skin Skin Exam: Abrasion, Dry, Intact, Warm Additional comments: + Jaundice Results - Vital Signs Recent Vital Signs: Last Vital Signs Temp 98.8 F 08/01/17 08:31 Pulse 68 08/01/17 08:31 Resp 20 08/01/17 08:31 BP 108/80 08/01/17 08:31 Pulse Ox 98 08/01/17 08:31 - Labs Result Diagrams: 08/01/17 07:50 08/01/17 07:50 Labs: Laboratory Results - last 24 hr 07/31/17 08/01/17 08/01/17 18:01 00:16 07:50 WBC 12.2 H RBC 2.77 L Hgb 8.3 L Hct 24.8 L MCV 89.7 MCH 30.1 MCHC 33.5 RDW 20.0 H Plt Count 250 MPV 8.7 Neut % (Auto) 76.7 H Lymph % (Auto) 16.6 L [place] % (Auto) 5.9 Eos % (Auto) 0.1 Baso % (Auto) 0.7 Neut # 9.3 H Lymph # 2.0 [place] # 0.7 Eos # 0.0 Baso # 0.1 Sodium Potassium Chloride Carbon Dioxide Anion Gap BUN Creatinine Est GFR ( Amer) Est GFR (Non-Af Amer) Random Glucose Calcium Phosphorus Magnesium Total Bilirubin AST ALT Alkaline Phosphatase Total Creatine Kinase < 20 L CK-MB (Mass) 0.52 Troponin I < 0.0120 Total Protein Albumin Globulin Albumin/Globulin Ratio C. difficile Ag & Toxin Negative 08/01/17 07:50 WBC RBC Hgb Hct MCV MCH MCHC RDW Plt Count MPV Neut % (Auto) Lymph % (Auto) [place] % (Auto) Eos % (Auto) Baso % (Auto) Neut # Lymph # [place] # Eos # Baso # Sodium 125 L Potassium 3.4 L Chloride 98 Carbon Dioxide 21 L Anion Gap 9 L BUN 4 L Creatinine 0.5 L Est GFR ( Amer) > 60 Est GFR (Non-Af Amer) > 60 Random Glucose 97 Calcium 6.8 L Phosphorus 2.9 Magnesium 1.3 L Total Bilirubin 2.5 H AST 184 H ALT 50 Alkaline Phosphatase 163 H Total Creatine Kinase CK-MB (Mass) Troponin I Total Protein 5.5 L Albumin 2.2 L Globulin 3.3 Albumin/Globulin Ratio 0.7 L C. difficile Ag & Toxin Assessment & Plan - Assessment and Plan (Free Text) Assessment: Patient is a 51 y/o with PMH of alcohol abuse presented with abdominal pain with profuse diarrhea and was found to have alcohol hepatitis, ascites, and cirrhosis of the liver currnelty being managed by Dr South. Dr Guerrero is consulted for low pancreatic elastase rule out chronic pancreatitis. Plan: 1) Pancreatic insufficiency 2) Possibly chronic pancreatitis 3) Liver cirrhosis 4) Alcohol hepatitis 5) Ascites 6) Electrolytes disturbances Will increase spironolactone to 50mg bid, Continue with Lasix 40 mg daily. Will start patient of pancreatic enzymes. Recommending vitamin deficiency work up including folate, vit D, iron. Follow up as outpatient for EUS. Patient seen, examined and case discussed with Dr Guerrero. - Date & Time Date: 08/01/17 Time: 11:30 <Frantz Guerrero - Last Filed: 08/01/17 20:54> Meds - Medications Medications: Current Medications Cholestyramine Resin (Questran) 4 gm PO BIDPC [facility] Last Admin: 08/01/17 18:58 Dose: 4 gm Enoxaparin Sodium (Lovenox) 40 mg SC DAILY [facility] Last Admin: 08/01/17 09:21 Dose: 40 mg Folic Acid (Folic Acid) 1 mg PO DAILY [facility] Last Admin: 08/01/17 09:21 Dose: 1 mg Furosemide (Lasix) 40 mg PO DAILY [facility] Last Admin: 07/29/17 09:51 Dose: Not Given Metronidazole (Flagyl) 500 mg in 100 mls @ 100 mls/hr IVPB Q8H [facility] Last Admin: 08/01/17 17:35 Dose: 100 mls/hr Ciprofloxacin (Cipro 400mg/200ml Dsw) 400 mg in 200 mls @ 133 mls/hr IVPB Q12H [facility] Last Admin: 08/01/17 14:40 Dose: 133 mls/hr Lorazepam (Ativan) 1 mg PO Q4H PRN PRN Reason: Anxiety Magnesium Oxide (Mag-Ox) 800 mg PO TID [facility] Last Admin: 08/01/17 14:47 Dose: Not Given Multivitamins (Hexavitamin) 1 tab PO DAILY [facility] Last Admin: 08/01/17 09:21 Dose: 1 tab Nicotine (Nicoderm Cq) 1 patch TD DAILY [facility] Last Admin: 08/01/17 09:21 Dose: 1 patch Pantoprazole Sodium (Protonix Ec Tab) 40 mg PO DAILY [facility] Last Admin: 08/01/17 18:59 Dose: 40 mg Petrolatum (Desitin Original) 1 gm TOP TID [facility] Last Admin: 08/01/17 18:59 Dose: 1 applic Simethicone (Mylicon Chew Tab) 80 mg PO TID [facility] Last Admin: 08/01/17 18:59 Dose: 80 mg Spironolactone (Aldactone) 50 mg PO BID [facility] Last Admin: 08/01/17 18:59 Dose: 50 mg Thiamine HCl (Vitamin B1 Tab) 100 mg PO BID [facility] Last Admin: 08/01/17 18:59 Dose: 100 mg Results - Vital Signs Recent Vital Signs: Last Vital Signs Temp 98.5 F 08/01/17 16:40 Pulse 99 H 08/01/17 16:40 Resp 20 08/01/17 16:40 BP 100/67 08/01/17 16:40 Pulse Ox 97 08/01/17 16:40 - Labs Result Diagrams: 08/01/17 07:50 08/01/17 07:50 Labs: Laboratory Results - last 24 hr 07/31/17 08/01/17 08/01/17 18:01 00:16 07:50 WBC 12.2 H RBC 2.77 L Hgb 8.3 L Hct 24.8 L MCV 89.7 MCH 30.1 MCHC 33.5 RDW 20.0 H Plt Count 250 MPV 8.7 Neut % (Auto) 76.7 H Lymph % (Auto) 16.6 L [place] % (Auto) 5.9 Eos % (Auto) 0.1 Baso % (Auto) 0.7 Neut # 9.3 H Lymph # 2.0 [place] # 0.7 Eos # 0.0 Baso # 0.1 Sodium Potassium Chloride Carbon Dioxide Anion Gap BUN Creatinine Est GFR ( Amer) Est GFR (Non-Af Amer) Random Glucose Calcium Phosphorus Magnesium Total Bilirubin AST ALT Alkaline Phosphatase Total Creatine Kinase < 20 L CK-MB (Mass) 0.52 Troponin I < 0.0120 Total Protein Albumin Globulin Albumin/Globulin Ratio C. difficile Ag & Toxin Negative 08/01/17 07:50 WBC RBC Hgb Hct MCV MCH MCHC RDW Plt Count MPV Neut % (Auto) Lymph % (Auto) [place] % (Auto) Eos % (Auto) Baso % (Auto) Neut # Lymph # [place] # Eos # Baso # Sodium 125 L Potassium 3.4 L Chloride 98 Carbon Dioxide 21 L Anion Gap 9 L BUN 4 L Creatinine 0.5 L Est GFR ( Amer) > 60 Est GFR (Non-Af Amer) > 60 Random Glucose 97 Calcium 6.8 L Phosphorus 2.9 Magnesium 1.3 L Total Bilirubin 2.5 H AST 184 H ALT 50 Alkaline Phosphatase 163 H Total Creatine Kinase CK-MB (Mass) Troponin I Total Protein 5.5 L Albumin 2.2 L Globulin 3.3 Albumin/Globulin Ratio 0.7 L C. difficile Ag & Toxin Attending/Attestation - Attestation I have personally seen and examined this patient.: Yes I have fully participated in the care of the patient.: Yes I have reviewed all pertinent clinical information: Yes Notes (Text): 08/01/17 20:48 51 year old male with h/o EtOH Abuse, Alcoholic cirrhosis c/b ascites and encephalopathy, also with chronic diarrhea, we are consulted for possible chronic pancreatitis. 1. Pancreatic insufficiency 2. Chronic pancreatitis Plan: -overall clinical picture is suggestive of chronic pancreatitis with h/o significant etoh abuse, evidence of pancreatic atrophy on CT scan, and pancreatic insufficiency on stool studies in the setting of chronic diarrhea -agree with plan for MRI -CT imaging reviewed, no evidence of pancreatic mass, calcifications, or ductal dilation, just atrophy -an elective EUS may be helpful in establishing the diagnosis of chronic pancreatitis, as there may be findings evident on EUS prior to CT scan, however , would pursue this on an elective outpatient basis, as opposed to inpatient evaluation -would recommend empiric therapy for chronic pancreatitis and pancreatic insufficiency with enzyme replacement therapy, would give [id number] units of lipase with each meal along with daily PPI to see if this improves his diarrhea -would also recommend checking for vitamin deficiencies such as vitamin d and b12 and replace as necessary -advised etoh abstinence and smoking abstinence
[2017-08-01] MEDS: Magnesium Sulfate 1 gm in D5W 1 GM/100 ML BAG IVPB SCH ×4 (14:35→14:46)
[2017-08-01] MEDS: Magnesium Oxide 400 mg Tab UD PO SCH (14:47)
[2017-08-01] MEDS: Zinc Oxide Topical 30 gm Tube TOP SCH ×2 (15:21→18:59)
[2017-08-01] MEDS: LIPASE/PROTEASE/AMYLASE 4,200 U ECC PO SCH (18:58)
[2017-08-01] MEDS: Pantoprazole 40 mg EC Tab PO SCH (18:59)
[2017-08-02] MEDS: metroNIDAZOLE IV 500 mg/100 ml 500 MG/100 ML BAG IVPB SCH ×3 (00:38→16:30)
[2017-08-02] MEDS: Ciprofloxacin 400mg/200ml D5W 400 MG/200 ML BAG IVPB SCH ×3 (02:10→22:30)
--- NOTE | 2017-08-02 07:13 | CP.PCM.PN ---
<Tima Beth S - Last Filed: 08/02/17 13:15> Subjective - Date & Time of Evaluation Date of Evaluation: 08/02/17 Time of Evaluation: 07:10 - Subjective Subjective: Medicine progress note for Dr. Huitron Patient seen and examined at bedside. Patient states that he is still experiencing diarrhea, 2 bouts as of this morning. Patient is tolerating diet but states that he prefers saltier foods. Objective - Vital Signs/Intake and Output Vital Signs (last 24 hours): Temp Pulse Resp BP Pulse Ox 98.6 F 103 H 20 105/75 97 08/01/17 23:50 08/02/17 04:00 08/01/17 23:50 08/01/17 23:50 08/01/17 23:50 Intake and Output: 08/02/17 08/02/17 06:59 18:59 Intake Total 350 Balance 350 - Medications Medications: Current Medications Cholestyramine Resin (Questran) 4 gm PO BIDPC [facility] Last Admin: 08/01/17 18:58 Dose: 4 gm Enoxaparin Sodium (Lovenox) 40 mg SC DAILY [facility] Last Admin: 08/01/17 09:21 Dose: 40 mg Folic Acid (Folic Acid) 1 mg PO DAILY [facility] Last Admin: 08/01/17 09:21 Dose: 1 mg Furosemide (Lasix) 40 mg PO DAILY [facility] Last Admin: 07/29/17 09:51 Dose: Not Given Metronidazole (Flagyl) 500 mg in 100 mls @ 100 mls/hr IVPB Q8H [facility] Last Admin: 08/02/17 00:38 Dose: 100 mls/hr Ciprofloxacin (Cipro 400mg/200ml Dsw) 400 mg in 200 mls @ 133 mls/hr IVPB Q12H [facility] Last Admin: 08/02/17 02:10 Dose: 133 mls/hr Lorazepam (Ativan) 1 mg PO Q4H PRN PRN Reason: Anxiety Magnesium Oxide (Mag-Ox) 800 mg PO TID [facility] Last Admin: 08/01/17 14:47 Dose: Not Given Multivitamins (Hexavitamin) 1 tab PO DAILY [facility] Last Admin: 08/01/17 09:21 Dose: 1 tab Nicotine (Nicoderm Cq) 1 patch TD DAILY [facility] Last Admin: 08/01/17 09:21 Dose: 1 patch Pantoprazole Sodium (Protonix Ec Tab) 40 mg PO DAILY [facility] Last Admin: 08/01/17 18:59 Dose: 40 mg Petrolatum (Desitin Original) 1 gm TOP TID [facility] Last Admin: 08/01/17 18:59 Dose: 1 applic Simethicone (Mylicon Chew Tab) 80 mg PO TID [facility] Last Admin: 08/01/17 18:59 Dose: 80 mg Spironolactone (Aldactone) 50 mg PO BID [facility] Last Admin: 08/01/17 18:59 Dose: 50 mg Thiamine HCl (Vitamin B1 Tab) 100 mg PO BID [facility] Last Admin: 08/01/17 18:59 Dose: 100 mg - Labs Labs: 08/01/17 07:50 08/01/17 07:50 PT 18.5 SECONDS (9.7-12.2) H 07/30/17 07:56 INR 1.6 07/30/17 07:56 APTT 34 SECONDS (21-34) 07/18/17 13:52 - Constitutional Appears: No Acute Distress - Head Exam Head Exam: ATRAUMATIC, NORMOCEPHALIC - Eye Exam Eye Exam: EOMI, Normal appearance - ENT Exam ENT Exam: Mucous Membranes Moist - Respiratory Exam Respiratory Exam: Clear to Ausculation Bilateral. absent: Rales, Rhonchi, Wheezes - Cardiovascular Exam Cardiovascular Exam: REGULAR RHYTHM, +S1, +S2 - GI/Abdominal Exam GI & Abdominal Exam: Distended, Soft, Tenderness (right sided tenderness worse in upper quadrant vs lower), Normal Bowel Sounds - Extremities Exam Extremities Exam: absent: Pedal Edema, Tenderness - Back Exam Additional comments: Excoriation on the gluteals and sacral area due to incontinence of loose stools - Neurological Exam Neurological Exam: Alert, Awake - Psychiatric Exam Psychiatric exam: Normal Affect, Normal Mood - Skin Skin Exam: Dry, Warm Assessment and Plan - Assessment and Plan (Free Text) Plan: 1.Colitis and Diarrhea No leukocytosis, afebrile giardia negative, stool ova and parasite negative, stool culture negative blood culture negative negative HIV and hep panel fecal fat study: normal c dif neg x 3 Desitin cream ordered for gluteal and sacral excoriations due to the uncontrolled loose stools Imaging: CT abd/pelvis with IV contrast 07/17: Significant bowel wall thickening involving the colon, appearance most consistent with acute colitis, cannot exclude underlying neoplasm. Small to moderate ascites. Fatty infiltration of the liver. Heterogeneous appearance to hepatic parenchyma. Some of appearance may be due to transient hepatic attenuation differences, concern for underlying lesion. Meds: Cipro 400 IV daily Flagyl 500 IV Q8 Endoscopy (07/28): small hiatal hernia, patchy mild inflammation in gastric antrum biopsies, scalloped mucosa found in duodenum, suspicious for celiac disease- biopsied Colonoscopy (07/28): internal hemorrhoids, mucosal nodule in the sigmoid colon, in transverse colon and in the ascending colon- biopsied Per Dr. South, he suspects pancreatic insufficiency as possible cause due to low stool pancreatic elastase and ordered an MRCP f/u MRCP Dr. South consulted Dr. Guerrero (help appreciated) for evaluation of possible chronic pancreatitis and possible EUS work up * Per Dr. Guerrero, pursue EUS as an outpatient for definitive diagnosis of chronic pancreatitis * Pancreatic enzymes were started with meals and Aldactone increased to 50 mg PO BID by GI team 2.Alcohol abuse/alcohol intoxication/alcohol withdrawal Elevated serum alcohol on admission 292 Seizure and aspiration precautions Ativan 1mg q4h prn for agitation Thiamine 100 mg daily Folic acid 1 mg daily Psych consult, Dr. Man, help appreciated 3. Ascites and hepatic encephalopathy Consult GI, Dr South CT abd/pelvis shows small to moderate ascites Paracentesis done today 07/19/17 with 2.1 L straw colored fluid removed. * peritoneal fluid no growth * Fluid WBC: 147, RBC: 216, neut: 41, lymph: 43, monocyte/macrophage: 15 Albumin 12.5 gm x 2 given on 07/21/17 ammonia level: increased to 64 on 07/22/17 Continue xifaxan 550mg po BID,not on lactulose due to diarrhea no paracentesis at this time started Lasix 40 mg po daily and Aldactone 25mg po BID on 07/25/17 Lasix held on 07/29/17 due to hypotension, restart when blood pressure increases 4.Hypokalemia and Hypomagnesemia follow levels with supplementation 5. 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 Tran help appreciated stool occult blood negative 6.Tobacco use disorder Nicotine patch 7 . S/P Urinary Retention patient urinating in urinal today monitor urine output 8. Elevated INR trending down Vitamin K 5mg po daily for a total of 5 days (day 1 on 07/26, last dose to be given on 07/30) continue to monitor 9.Prophylactic Measure/supportive care Pepcid 20mg po BID SCDs, Lovenox 40mg sc daily Simethicone 80mg po BID PT/OT Disposition: Patient started on pancreatic enzymes per Dr. Guerrero's team. Patient awaiting MRCP as still not able to get ahold of family for MRI checklist. Case DW Dr. Tomy Beth PGY-1 <Ruth Huitron - Last Filed: 08/03/17 19:26> Objective - Vital Signs/Intake and Output Vital Signs (last 24 hours): Temp Pulse Resp BP Pulse Ox 98.5 F 101 H 20 112/78 97 08/03/17 16:08 08/03/17 16:08 08/03/17 16:08 08/03/17 16:08 08/03/17 16:08 - Medications Medications: Current Medications Cholestyramine Resin (Questran) 4 gm PO BIDPC [facility] Last Admin: 08/03/17 18:21 Dose: 4 gm Enoxaparin Sodium (Lovenox) 40 mg SC DAILY [facility] Last Admin: 08/03/17 10:09 Dose: 40 mg Folic Acid (Folic Acid) 1 mg PO DAILY [facility] Last Admin: 08/03/17 10:00 Dose: Not Given Furosemide (Lasix) 40 mg PO DAILY [facility] Last Admin: 08/03/17 10:00 Dose: Not Given Metronidazole (Flagyl) 500 mg in 100 mls @ 100 mls/hr IVPB Q8H [facility] Last Admin: 08/03/17 15:07 Dose: 100 mls/hr Ciprofloxacin (Cipro 400mg/200ml Dsw) 400 mg in 200 mls @ 133 mls/hr IVPB Q12 [facility] Last Admin: 08/03/17 10:03 Dose: 133 mls/hr Magnesium Sulfate/Dextrose (Magnesium Sulfate 1 Gm/100 Ml D5w) 1 gm in 100 mls @ 100 mls/hr IVPB Q1H [facility] Stop: 08/03/17 21:59 Loperamide HCl (Imodium) 2 mg PO QID PRN PRN Reason: Diarrhea Lorazepam (Ativan) 1 mg PO Q4H PRN PRN Reason: Anxiety Magnesium Oxide (Mag-Ox) 800 mg PO TID [facility] Last Admin: 08/01/17 14:47 Dose: Not Given Multivitamins (Hexavitamin) 1 tab PO DAILY [facility] Last Admin: 08/03/17 10:00 Dose: Not Given Nicotine (Nicoderm Cq) 1 patch TD DAILY [facility] Last Admin: 08/03/17 10:00 Dose: Not Given Pantoprazole Sodium (Protonix Ec Tab) 40 mg PO DAILY [facility] Last Admin: 08/03/17 10:00 Dose: Not Given Petrolatum (Desitin Original) 1 gm TOP TID [facility] Last Admin: 08/03/17 14:00 Dose: Not Given Simethicone (Mylicon Chew Tab) 80 mg PO TID [facility] Last Admin: 08/03/17 18:19 Dose: 80 mg Spironolactone (Aldactone) 50 mg PO BID [facility] Last Admin: 08/03/17 18:22 Dose: 50 mg Thiamine HCl (Vitamin B1 Tab) 100 mg PO BID [facility] Last Admin: 08/03/17 18:19 Dose: 100 mg - Labs Labs: 08/03/17 08:26 08/03/17 08:26 PT 21.0 SECONDS (9.7-12.2) H 08/03/17 08:26 INR 1.8 08/03/17 08:26 APTT 34 SECONDS (21-34) 07/18/17 13:52 Attending/Attestation - Attestation I have personally seen and examined this patient.: Yes I have fully participated in the care of the patient.: Yes I have reviewed all pertinent clinical information, including history, physical exam and plan: Yes Notes (Text): seen and examined patient has diarrhea started on pancreatic enzymes Fecal elastase was low, suggesting pancreatic insufficiency. His friend Mamadou visited him. patient used to stay with his friend and knows him for a long time. His friend is trying to help him and planning to send him back to [facility] when he gets better. He will help to do MRI screen 08/03/17 19:23
[2017-08-02] MEDS: Cholestyramine 4 gm/Pkt UD PO SCH ×2 (09:24→17:25)
[2017-08-02] MEDS: Zinc Oxide Topical 30 gm Tube TOP SCH ×3 (10:00→17:27)
[2017-08-02] MEDS: Enoxaparin 40 mg Syringe SC SCH (10:23)
[2017-08-02] MEDS: Pantoprazole 40 mg EC Tab PO SCH (11:19)
[2017-08-02] MEDS: LIPASE/PROTEASE/AMYLASE 4,200 U ECC PO SCH ×3 (11:20→17:37)
[2017-08-02] MEDS: Multiple Vitamins Tab PO SCH (11:20)
[2017-08-02] MEDS: Simethicone 80 mg Chewtab PO SCH ×3 (11:20→17:25)
[2017-08-02 12:32] LABS: BASO # 0.1 K/uL (0.0-0.2); BASO % 0.9 % (0.0-2.0); EOS % 0.2 % (0.0-4.0); HEMOGLOBIN 8.1 g/dL (12.0-18.0); LYMPH # 1.2 K/uL (1.0-4.3); LYMPH % 12.3 % (20.0-40.0); MEAN CORPUSCULAR HEMOGLOBIN 30.3 pg (27.0-31.0); MEAN CORPUSCULAR HGB CONC 33.6 g/dL (33.0-37.0); MEAN PLATELET VOLUME 8.7 fL (7.2-11.7); MONO # 0.7 K/uL (0.0-0.8); MONO % 7.4 % (0.0-10.0); NEUT # 7.9 K/uL (1.8-7.0); NEUT % 79.2 % (50.0-75.0); RBC 2.68 Mil/uL (4.40-5.90)
[2017-08-02 13:03] LABS: ALB/GLOB RATIO 0.5 (1.0-2.1); ALBUMIN 2.2 g/dL (3.5-5.0); ALT/SGPT 50 U/L (21-72); AST/SGOT 185 U/L (17-59); BLOOD UREA NITROGEN 3 mg/dL (9-20); GFR AFRICAN-AMERICAN > 60; GFR NON-AFRICAN AMERICAN > 60; MAGNESIUM 1.3 mg/dL (1.6-2.3)
[2017-08-02] MEDS: Magnesium Sulfate 1 gm in D5W 1 GM/100 ML BAG IVPB SCH ×2 (13:30→14:30)
--- NOTE | 2017-08-02 16:39 | CP.PCM.PN ---
Subjective - Date & Time of Evaluation Date of Evaluation: 08/02/17 Time of Evaluation: 16:36 - Subjective Subjective: No new complaints. Patient continues to complain of abdominal pain and diarrhea. Objective - Vital Signs/Intake and Output Vital Signs (last 24 hours): Temp Pulse Resp BP Pulse Ox 97.9 F 107 H 20 99/71 L 99 08/02/17 16:00 08/02/17 16:00 08/02/17 16:00 08/02/17 16:00 08/02/17 16:00 Intake and Output: 08/02/17 08/02/17 06:59 18:59 Intake Total 350 Balance 350 - Medications Medications: Current Medications Cholestyramine Resin (Questran) 4 gm PO BIDPC [facility] Last Admin: 08/02/17 09:24 Dose: 4 gm Enoxaparin Sodium (Lovenox) 40 mg SC DAILY [facility] Last Admin: 08/02/17 10:23 Dose: 40 mg Folic Acid (Folic Acid) 1 mg PO DAILY [facility] Last Admin: 08/02/17 11:20 Dose: 1 mg Furosemide (Lasix) 40 mg PO DAILY [facility] Last Admin: 07/29/17 09:51 Dose: Not Given Metronidazole (Flagyl) 500 mg in 100 mls @ 100 mls/hr IVPB Q8H [facility] Last Admin: 08/02/17 10:00 Dose: 100 mls/hr Ciprofloxacin (Cipro 400mg/200ml Dsw) 400 mg in 200 mls @ 133 mls/hr IVPB Q12H [facility] Last Admin: 08/02/17 13:25 Dose: 133 mls/hr Lorazepam (Ativan) 1 mg PO Q4H PRN PRN Reason: Anxiety Magnesium Oxide (Mag-Ox) 800 mg PO TID [facility] Last Admin: 08/01/17 14:47 Dose: Not Given Multivitamins (Hexavitamin) 1 tab PO DAILY [facility] Last Admin: 08/02/17 11:20 Dose: 1 tab Nicotine (Nicoderm Cq) 1 patch TD DAILY [facility] Last Admin: 08/02/17 11:21 Dose: 1 patch Pantoprazole Sodium (Protonix Ec Tab) 40 mg PO DAILY [facility] Last Admin: 08/02/17 11:19 Dose: 40 mg Petrolatum (Desitin Original) 1 gm TOP TID [facility] Last Admin: 08/02/17 14:38 Dose: Not Given Simethicone (Mylicon Chew Tab) 80 mg PO TID [facility] Last Admin: 08/02/17 14:34 Dose: 80 mg Spironolactone (Aldactone) 50 mg PO BID [facility] Last Admin: 08/02/17 11:20 Dose: 50 mg Thiamine HCl (Vitamin B1 Tab) 100 mg PO BID [facility] Last Admin: 08/02/17 11:19 Dose: 100 mg - Labs Labs: 08/02/17 12:28 08/02/17 12:28 PT 18.5 SECONDS (9.7-12.2) H 07/30/17 07:56 INR 1.6 07/30/17 07:56 APTT 34 SECONDS (21-34) 07/18/17 13:52 - Constitutional Appears: No Acute Distress - Head Exam Head Exam: ATRAUMATIC, NORMOCEPHALIC - Neck Exam Neck Exam: absent: Lymphadenopathy, Thyromegaly - Respiratory Exam Respiratory Exam: NORMAL BREATHING PATTERN. absent: Rales, Rhonchi, Wheezes - Cardiovascular Exam Cardiovascular Exam: REGULAR RHYTHM, +S1, +S2. absent: Gallop, Rubs, Murmur - GI/Abdominal Exam GI & Abdominal Exam: Distended, Soft, Normal Bowel Sounds. absent: Tenderness, Organomegaly Additional comments: Positive fluid wave - Rectal Exam Rectal Exam: Deferred - Extremities Exam Extremities Exam: absent: Calf Tenderness, Pedal Edema Assessment and Plan (1) Alcoholic hepatitis Assessment & Plan: Total bilirubin continues to improve, now down to 2.2. AST was 185 and ALT 50. PT was not done. Status: Acute (2) Diarrhea Assessment & Plan: Fecal elastase was low, suggesting pancreatic insufficiency. Previously, iron level was 110, TIBC 152, ferritin 238, B12 772 and folate 7.2 (as of 07/18/17). Quantitiative fecal fat is pending. Agree with pancreatic enzymes. Dr. Guerrero is planning on EUS as an outpatient. Status: Acute
[2017-08-02] MEDS ORDERED: Ciprofloxacin 400mg/200ml D5W 400 MG/200 ML BAG IVPB SCH (18:15)
--- NOTE | 2017-08-03 00:08 | CARD ---
APPROVED REPORT EKG Measurement Heart [id number] VT [id number] <Conclusion> Sinus tachycardia with fusion complexes Nonspecific T wave abnormality Abnormal ECG
[2017-08-03] MEDS: metroNIDAZOLE IV 500 mg/100 ml 500 MG/100 ML BAG IVPB SCH ×3 (00:55→15:07)
--- NOTE | 2017-08-03 07:11 | CP.PCM.PN ---
<Tima Beth - Last Filed: 08/03/17 19:06> Subjective - Date & Time of Evaluation Date of Evaluation: 08/03/17 Time of Evaluation: 07:40 - Subjective Subjective: Medicine progress note for Dr. Huitron Patient seen and examined at bedside. Patient states he had 5 episodes of watery diarrhea. Patient also complaining of subjective fevers. Objective - Vital Signs/Intake and Output Vital Signs (last 24 hours): Temp Pulse Resp BP Pulse Ox 98.1 F 105 H 20 107/71 97 08/02/17 23:15 08/02/17 23:20 08/02/17 23:15 08/02/17 23:15 08/02/17 23:15 Intake and Output: 08/03/17 08/03/17 06:59 18:59 Intake Total 600 Output Total 100 Balance 500 - Medications Medications: Current Medications Cholestyramine Resin (Questran) 4 gm PO BIDPC [facility] Last Admin: 08/02/17 17:25 Dose: 4 gm Enoxaparin Sodium (Lovenox) 40 mg SC DAILY [facility] Last Admin: 08/02/17 10:23 Dose: 40 mg Folic Acid (Folic Acid) 1 mg PO DAILY [facility] Last Admin: 08/02/17 11:20 Dose: 1 mg Furosemide (Lasix) 40 mg PO DAILY [facility] Last Admin: 07/29/17 09:51 Dose: Not Given Metronidazole (Flagyl) 500 mg in 100 mls @ 100 mls/hr IVPB Q8H [facility] Last Admin: 08/03/17 00:55 Dose: 100 mls/hr Ciprofloxacin (Cipro 400mg/200ml Dsw) 400 mg in 200 mls @ 133 mls/hr IVPB Q12 [facility] Last Admin: 08/02/17 22:30 Dose: Not Given Lorazepam (Ativan) 1 mg PO Q4H PRN PRN Reason: Anxiety Magnesium Oxide (Mag-Ox) 800 mg PO TID [facility] Last Admin: 08/01/17 14:47 Dose: Not Given Multivitamins (Hexavitamin) 1 tab PO DAILY [facility] Last Admin: 08/02/17 11:20 Dose: 1 tab Nicotine (Nicoderm Cq) 1 patch TD DAILY [facility] Last Admin: 08/02/17 11:21 Dose: 1 patch Pantoprazole Sodium (Protonix Ec Tab) 40 mg PO DAILY [facility] Last Admin: 08/02/17 11:19 Dose: 40 mg Petrolatum (Desitin Original) 1 gm TOP TID [facility] Last Admin: 08/02/17 17:27 Dose: Not Given Simethicone (Mylicon Chew Tab) 80 mg PO TID [facility] Last Admin: 08/02/17 17:25 Dose: 80 mg Spironolactone (Aldactone) 50 mg PO BID [facility] Last Admin: 08/02/17 17:25 Dose: 50 mg Thiamine HCl (Vitamin B1 Tab) 100 mg PO BID [facility] Last Admin: 08/02/17 17:25 Dose: 100 mg - Labs Labs: 08/02/17 12:28 08/02/17 12:28 PT 18.5 SECONDS (9.7-12.2) H 07/30/17 07:56 INR 1.6 07/30/17 07:56 APTT 34 SECONDS (21-34) 07/18/17 13:52 - Constitutional Appears: No Acute Distress - Head Exam Head Exam: ATRAUMATIC, NORMOCEPHALIC - Eye Exam Eye Exam: EOMI, Normal appearance - ENT Exam ENT Exam: Mucous Membranes Moist - Respiratory Exam Respiratory Exam: Clear to Ausculation Bilateral. absent: Rales, Rhonchi, Wheezes - Cardiovascular Exam Cardiovascular Exam: REGULAR RHYTHM, +S1, +S2 - GI/Abdominal Exam GI & Abdominal Exam: Distended, Soft, Tenderness (right sided tenderness worse in upper quadrant vs lower), Normal Bowel Sounds - Extremities Exam Extremities Exam: absent: Pedal Edema, Tenderness - Back Exam Additional comments: Excoriation on the gluteals and sacral area due to incontinence of loose stools - Neurological Exam Neurological Exam: Alert, Awake - Psychiatric Exam Psychiatric exam: Normal Affect, Normal Mood - Skin Skin Exam: Dry, Warm Assessment and Plan - Assessment and Plan (Free Text) Plan: 1.Colitis and Diarrhea No leukocytosis, afebrile giardia negative, stool ova and parasite negative, stool culture negative blood culture negative negative HIV and hep panel fecal fat study: normal c dif neg x 3 Desitin cream ordered for gluteal and sacral excoriations due to the uncontrolled loose stools Imaging: CT abd/pelvis with IV contrast 07/17: Significant bowel wall thickening involving the colon, appearance most consistent with acute colitis, cannot exclude underlying neoplasm. Small to moderate ascites. Fatty infiltration of the liver. Heterogeneous appearance to hepatic parenchyma. Some of appearance may be due to transient hepatic attenuation differences, concern for underlying lesion. Meds: Cipro 400 IV daily Flagyl 500 IV Q8 Endoscopy (07/28): small hiatal hernia, patchy mild inflammation in gastric antrum biopsies, scalloped mucosa found in duodenum, suspicious for celiac disease- biopsied Colonoscopy (07/28): internal hemorrhoids, mucosal nodule in the sigmoid colon, in transverse colon and in the ascending colon- biopsied Per Dr. South, he suspects pancreatic insufficiency as possible cause due to low stool pancreatic elastase and ordered an MRCP MRCP unable to be obtained due to patient restlessness Dr. South consulted Dr. Guerrero (help appreciated) for evaluation of possible chronic pancreatitis and possible EUS work up * Per Dr. Guerrero, pursue EUS as an outpatient for definitive diagnosis of chronic pancreatitis * Pancreatic enzymes were started with meals and Aldactone increased to 50 mg PO BID by GI team Pancreaze increased by Dr. Suoth on 08/03/17 2.Alcohol abuse/alcohol intoxication/alcohol withdrawal Elevated serum alcohol on admission 292 Seizure and aspiration precautions Ativan 1mg q4h prn for agitation Thiamine 100 mg daily Folic acid 1 mg daily Psych consult, Dr. Man, help appreciated 3. Ascites and hepatic encephalopathy Consult GI, Dr South CT abd/pelvis shows small to moderate ascites Paracentesis done today 07/19/17 with 2.1 L straw colored fluid removed. * peritoneal fluid no growth * Fluid WBC: 147, RBC: 216, neut: 41, lymph: 43, monocyte/macrophage: 15 Albumin 12.5 gm x 2 given on 07/21/17 ammonia level: increased to 64 on 07/22/17 Continue xifaxan 550mg po BID,not on lactulose due to diarrhea no paracentesis at this time started Lasix 40 mg po daily and Aldactone 25mg po BID on 07/25/17 Lasix held on 07/29/17 due to hypotension, restart when blood pressure increases 4.Hypokalemia and Hypomagnesemia follow levels with supplementation 5. 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 Tran help appreciated stool occult blood negative 6.Tobacco use disorder Nicotine patch 7 . S/P Urinary Retention patient urinating in urinal today monitor urine output 8. Elevated INR trending down Vitamin K 5mg po daily for a total of 5 days (day 1 on 07/26, last dose to be given on 07/30) continue to monitor 9.Prophylactic Measure/supportive care Pepcid 20mg po BID SCDs, Lovenox 40mg sc daily Simethicone 80mg po BID PT/OT Disposition: Per nursing, patient unable to complete MRCP due to restlessness. Pancreatic enzymes were increased and Imodium was started today. Discharge pending later this week. Case DW Dr. Tomy Beth PGY-1 <Ruth Huitron - Last Filed: 08/24/17 10:02> Objective - Vital Signs/Intake and Output Vital Signs (last 24 hours): Temp Pulse Resp BP Pulse Ox 98.3 F 87 20 100/66 100 08/24/17 08:40 08/24/17 08:40 08/24/17 08:40 08/24/17 08:40 08/24/17 08:40 Intake and Output: 08/24/17 08/24/17 06:59 18:59 Output Total 750 Balance -750 - Medications Medications: Current Medications Albuterol/Ipratropium (Duoneb 3 Mg/0.5 Mg (3 Ml) Ud) 3 ml INH RBID [facility] Last Admin: 08/24/17 07:14 Dose: 3 ml Cholestyramine Resin (Questran) 4 gm PO TIDPC [facility] Last Admin: 08/24/17 08:45 Dose: 4 gm Folic Acid (Folic Acid) 1 mg PO DAILY [facility] Last Admin: 08/24/17 09:27 Dose: 1 mg Lactulose (Enulose) 10 gm PO BID [facility] Last Admin: 08/24/17 09:26 Dose: 10 gm Pantoprazole Sodium (Protonix Ec Tab) 40 mg PO DAILY [facility] Last Admin: 08/24/17 09:26 Dose: 40 mg Petrolatum (Desitin Original) 1 gm TOP TID [facility] Last Admin: 08/24/17 09:27 Dose: 1 applic Rifaximin (Xifaxan) 550 mg PO BID [facility] Last Admin: 08/24/17 09:26 Dose: 550 mg Sodium Bicarbonate (Sodium Bicarbonate Tab) 1,300 mg PO TID [facility] Last Admin: 08/24/17 09:26 Dose: 1,300 mg Sodium Chloride (Sodium Chloride Tab) 1 gm PO BID [facility] Last Admin: 08/24/17 09:26 Dose: 1 gm Spironolactone (Aldactone) 50 mg PO BID [facility] Last Admin: 08/24/17 09:27 Dose: 50 mg Thiamine HCl (Vitamin B1 Tab) 100 mg PO BID [facility] Last Admin: 08/24/17 09:27 Dose: 100 mg - Labs Labs: 08/22/17 11:37 08/22/17 11:37 PT 17.9 SECONDS (9.7-12.2) H 08/16/17 07:11 INR 1.6 08/16/17 07:11 APTT 34 SECONDS (21-34) 07/18/17 13:52 Attending/Attestation - Attestation I have personally seen and examined this patient.: Yes I have fully participated in the care of the patient.: Yes I have reviewed all pertinent clinical information, including history, physical exam and plan: Yes Notes (Text): seen and examined I agree withe the documentation 08/24/17 09:55
[2017-08-03] MEDS: LIPASE/PROTEASE/AMYLASE 4,200 U ECC PO SCH ×4 (08:00→18:20)
[2017-08-03 08:31] LABS: BASO # 0.1 K/uL (0.0-0.2); BASO % 0.5 % (0.0-2.0); EOS % 0.2 % (0.0-4.0); HEMOGLOBIN 8.9 g/dL (12.0-18.0); LYMPH # 1.5 K/uL (1.0-4.3); LYMPH % 13.7 % (20.0-40.0); MEAN CELL VOLUME 89.7 fL (80.0-94.0); MEAN CORPUSCULAR HEMOGLOBIN 30.2 pg (27.0-31.0); MEAN CORPUSCULAR HGB CONC 33.7 g/dL (33.0-37.0); MEAN PLATELET VOLUME 8.6 fL (7.2-11.7); MONO # 0.6 K/uL (0.0-0.8); MONO % 5.5 % (0.0-10.0); NEUT # 8.8 K/uL (1.8-7.0); NEUT % 80.1 % (50.0-75.0); RBC 2.96 Mil/uL (4.40-5.90); RED CELL DISTRIBUTION WIDTH 19.4 % (11.5-14.5); WHITE BLOOD COUNT 10.9 K/uL (4.8-10.8)
[2017-08-03 08:43] LABS: INR 1.8
[2017-08-03 08:46] LABS: ALB/GLOB RATIO 0.7 (1.0-2.1); ALBUMIN 2.5 g/dL (3.5-5.0); ALT/SGPT 58 U/L (21-72); AST/SGOT 213 U/L (17-59); BLOOD UREA NITROGEN 3 mg/dL (9-20); CALCIUM 7.3 mg/dl (8.6-10.4); GFR AFRICAN-AMERICAN > 60; GFR NON-AFRICAN AMERICAN > 60; MAGNESIUM 1.4 mg/dL (1.6-2.3)
[2017-08-03] MEDS: Cholestyramine 4 gm/Pkt UD PO SCH ×2 (09:00→18:21)
[2017-08-03] MEDS ORDERED: Midazolam 2 MG/2 ML VIAL ONE (09:14)
[2017-08-03] MEDS ORDERED: Propofol 10 mg/ml Inj (20 ML) ONE (09:14)
[2017-08-03] MEDS ORDERED: Rocuronium 10 mg/ml (5 ml) ONE (09:15)
[2017-08-03] MEDS: Simethicone 80 mg Chewtab PO SCH ×3 (10:00→18:19)
[2017-08-03] MEDS: Zinc Oxide Topical 30 gm Tube TOP SCH ×3 (10:00→16:19)
[2017-08-03] MEDS: Multiple Vitamins Tab PO SCH (10:00)
[2017-08-03] MEDS: Pantoprazole 40 mg EC Tab PO SCH (10:00)
[2017-08-03] MEDS: Ciprofloxacin 400mg/200ml D5W 400 MG/200 ML BAG IVPB SCH ×2 (10:03→23:00)
[2017-08-03] MEDS: Enoxaparin 40 mg Syringe SC SCH (10:09)
--- NOTE | 2017-08-03 15:13 | MRI ---
MRCP Indication: Pancreatic insufficiency, see HR pancreatitis Technique: Multiplanar, multisequence MR images of the abdomen were obtained, including heavily T2 weighted MRCP images of the biliary system. Rotating maximum intensity projection images of the biliary system were generated. A total of 705 images were submitted for review. MRI of the abdomen without and with IV contrast was not performed at this time as examination was suboptimal due to patient condition/motion throughout the initial part of this examination. Comparison: CT of the abdomen and pelvis without IV contrast performed 07/31/17 Findings: Examination markedly limited suboptimal examination due to patient motion/noncompliance with instruction. Nodular hepatic contour. Ascites. Decompressed gallbladder. Dilatation of the common bile duct and pancreatic duct are not appreciated however they are not adequately visualized. The pancreas is not well visualized. The limited noncontrast views of the adrenal glands, kidneys, and spleen appear grossly unremarkable. No bulky abdominal lymphadenopathy is seen. No ascites. Limited visualization of the lung bases demonstrates moderate pleural effusions bilaterally. Small to moderate hiatal hernia. Partially imaged upper abdomen reveals bowel wall thickening possibly related to enteritis/colitis. No acute osseous abnormality is detected. Impression: Examination markedly limited suboptimal examination due to patient motion/noncompliance with instruction. Recommend repeat study when clinically feasible. Nodular hepatic contour. Ascites. Decompressed gallbladder. Dilatation of the common bile duct and pancreatic duct are not appreciated however they are not adequately visualized. Moderate pleural effusions bilaterally. Partially imaged upper abdomen reveals bowel wall thickening possibly related to enteritis/colitis. Small to moderate hiatal hernia.
[2017-08-03] MEDS: Magnesium Sulfate 1 gm in D5W 1 GM/100 ML BAG IVPB SCH ×2 (20:45→22:00)
[2017-08-04] MEDS: metroNIDAZOLE IV 500 mg/100 ml 500 MG/100 ML BAG IVPB SCH ×3 (00:19→17:39)
--- NOTE | 2017-08-04 07:07 | CP.PCM.PN ---
<Tima Beth - Last Filed: 08/04/17 18:06> Subjective - Date & Time of Evaluation Date of Evaluation: 08/04/17 Time of Evaluation: 07:20 - Subjective Subjective: Medicine progress note for Dr. Huitron Patient seen and examined at bedside. Patient continues to complain of diarrhea but there is a discrepancy in frequency based on what the patient reports and how often the clinical partners need to clean. Patient states he is unable to get to the bedside commode in time and will sometimes defecate on the floor. Patient is for therapeutic paracentesis. Objective - Vital Signs/Intake and Output Vital Signs (last 24 hours): Temp Pulse Resp BP Pulse Ox 99 F 104 H 20 113/79 98 08/04/17 00:35 08/04/17 00:35 08/04/17 00:35 08/04/17 00:35 08/04/17 00:35 Intake and Output: 08/04/17 08/04/17 06:59 18:59 Intake Total 760 Balance 760 - Medications Medications: Current Medications Cholestyramine Resin (Questran) 4 gm PO BIDPC [facility] Last Admin: 08/03/17 18:21 Dose: 4 gm Enoxaparin Sodium (Lovenox) 40 mg SC DAILY [facility] Last Admin: 08/03/17 10:09 Dose: 40 mg Folic Acid (Folic Acid) 1 mg PO DAILY [facility] Last Admin: 08/03/17 10:00 Dose: Not Given Furosemide (Lasix) 40 mg PO DAILY [facility] Last Admin: 08/03/17 10:00 Dose: Not Given Metronidazole (Flagyl) 500 mg in 100 mls @ 100 mls/hr IVPB Q8H [facility] Last Admin: 08/04/17 00:19 Dose: 100 mls/hr Ciprofloxacin (Cipro 400mg/200ml Dsw) 400 mg in 200 mls @ 133 mls/hr IVPB Q12 [facility] Last Admin: 08/03/17 23:00 Dose: 133 mls/hr Loperamide HCl (Imodium) 2 mg PO QID PRN PRN Reason: Diarrhea Lorazepam (Ativan) 1 mg PO Q4H PRN PRN Reason: Anxiety Magnesium Oxide (Mag-Ox) 800 mg PO TID [facility] Last Admin: 08/01/17 14:47 Dose: Not Given Multivitamins (Hexavitamin) 1 tab PO DAILY [facility] Last Admin: 08/03/17 10:00 Dose: Not Given Nicotine (Nicoderm Cq) 1 patch TD DAILY [facility] Last Admin: 08/03/17 10:00 Dose: Not Given Pantoprazole Sodium (Protonix Ec Tab) 40 mg PO DAILY [facility] Last Admin: 08/03/17 10:00 Dose: Not Given Petrolatum (Desitin Original) 1 gm TOP TID [facility] Last Admin: 08/03/17 16:19 Dose: 1 applic Simethicone (Mylicon Chew Tab) 80 mg PO TID [facility] Last Admin: 08/03/17 18:19 Dose: 80 mg Spironolactone (Aldactone) 50 mg PO BID [facility] Last Admin: 08/03/17 18:22 Dose: 50 mg Thiamine HCl (Vitamin B1 Tab) 100 mg PO BID [facility] Last Admin: 08/03/17 18:19 Dose: 100 mg - Labs Labs: 08/03/17 08:26 08/03/17 08:26 PT 21.0 SECONDS (9.7-12.2) H 08/03/17 08:26 INR 1.8 08/03/17 08:26 APTT 34 SECONDS (21-34) 07/18/17 13:52 - Constitutional Appears: No Acute Distress - Head Exam Head Exam: ATRAUMATIC, NORMOCEPHALIC - Eye Exam Eye Exam: EOMI, Normal appearance - ENT Exam ENT Exam: Mucous Membranes Moist - Respiratory Exam Respiratory Exam: Clear to Ausculation Bilateral. absent: Rales, Rhonchi, Wheezes - Cardiovascular Exam Cardiovascular Exam: REGULAR RHYTHM, +S1, +S2 - GI/Abdominal Exam GI & Abdominal Exam: Distended, Soft, Tenderness (right sided tenderness worse in upper quadrant vs lower), Normal Bowel Sounds - Extremities Exam Extremities Exam: absent: Pedal Edema, Tenderness - Neurological Exam Neurological Exam: Alert, Awake - Psychiatric Exam Psychiatric exam: Normal Affect, Normal Mood - Skin Skin Exam: Dry, Warm Assessment and Plan - Assessment and Plan (Free Text) Plan: 1.Colitis and Diarrhea No leukocytosis, afebrile giardia negative, stool ova and parasite negative, stool culture negative blood culture negative negative HIV and hep panel fecal fat study: normal c dif neg x 3 Desitin cream ordered for gluteal and sacral excoriations due to the uncontrolled loose stools Imaging: CT abd/pelvis with IV contrast 07/17: Significant bowel wall thickening involving the colon, appearance most consistent with acute colitis, cannot exclude underlying neoplasm. Small to moderate ascites. Fatty infiltration of the liver. Heterogeneous appearance to hepatic parenchyma. Some of appearance may be due to transient hepatic attenuation differences, concern for underlying lesion. Meds: Cipro 400 IV daily Flagyl 500 IV Q8 Endoscopy (07/28): small hiatal hernia, patchy mild inflammation in gastric antrum biopsies, scalloped mucosa found in duodenum, suspicious for celiac disease- biopsied Colonoscopy (07/28): internal hemorrhoids, mucosal nodule in the sigmoid colon, in transverse colon and in the ascending colon- biopsied Per Dr. South, he suspects pancreatic insufficiency as possible cause due to low stool pancreatic elastase and ordered an MRCP MRCP unable to be obtained due to patient restlessness Dr. South consulted Dr. Guerrero (help appreciated) for evaluation of possible chronic pancreatitis and possible EUS work up * Per Dr. Guerrero, pursue EUS as an outpatient for definitive diagnosis of chronic pancreatitis * Pancreatic enzymes were started with meals and Aldactone increased to 50 mg PO BID by GI team Pancreaze increased by Dr. South on 08/03/17 2.Alcohol abuse/alcohol intoxication/alcohol withdrawal Elevated serum alcohol on admission 292 Seizure and aspiration precautions Ativan 1mg q4h prn for agitation Thiamine 100 mg daily Folic acid 1 mg daily Psych consult, Dr. Man, help appreciated 3. Ascites and hepatic encephalopathy Consult GI, Dr South CT abd/pelvis shows small to moderate ascites Paracentesis done today 07/19/17 with 2.1 L straw colored fluid removed. * peritoneal fluid no growth * Fluid WBC: 147, RBC: 216, neut: 41, lymph: 43, monocyte/macrophage: 15 Albumin 12.5 gm x 2 given on 07/21/17 ammonia level: increased to 64 on 07/22/17 Continue xifaxan 550mg po BID,not on lactulose due to diarrhea started Lasix 40 mg po daily and Aldactone 25mg po BID on 07/25/17 Repeat paracentesis 08/04/17--4 Liters removed. Replenished with albumin 12.5 gm x2 doses 4.Hypokalemia and Hypomagnesemia follow levels with supplementation 5. 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 Tran help appreciated stool occult blood negative 6.Tobacco use disorder Nicotine patch 7 . S/P Urinary Retention patient urinating in urinal today monitor urine output 8. Elevated INR trending down Vitamin K 5mg po daily for a total of 5 days (day 1 on 07/26, last dose to be given on 07/30) continue to monitor 9.Prophylactic Measure/supportive care Pepcid 20mg po BID SCDs, Lovenox 40mg sc daily Simethicone 80mg po BID PT/OT Disposition: Bowel movements appear to be less frequent considering how often the patient needs to be cleaned. Paracentesis with improvement in distention. Repleted with 2 doses of Albumin 12.[address] Tomy Beth PGY-1 <uRth Huitron - Last Filed: 08/24/17 15:24> Objective - Vital Signs/Intake and Output Vital Signs (last 24 hours): Temp Pulse Resp BP Pulse Ox 98.3 F 87 20 100/66 100 08/24/17 08:40 08/24/17 08:40 08/24/17 08:40 08/24/17 08:40 08/24/17 08:40 Intake and Output: 08/24/17 08/24/17 06:59 18:59 Output Total 750 Balance -750 - Medications Medications: Current Medications Albuterol/Ipratropium (Duoneb 3 Mg/0.5 Mg (3 Ml) Ud) 3 ml INH RBID [facility] Last Admin: 08/24/17 07:14 Dose: 3 ml Cholestyramine Resin (Questran) 4 gm PO TIDPC [facility] Last Admin: 08/24/17 13:43 Dose: 4 gm Folic Acid (Folic Acid) 1 mg PO DAILY [facility] Last Admin: 08/24/17 09:27 Dose: 1 mg Lactulose (Enulose) 10 gm PO BID [facility] Last Admin: 08/24/17 09:26 Dose: 10 gm Pantoprazole Sodium (Protonix Ec Tab) 40 mg PO DAILY [facility] Last Admin: 08/24/17 09:26 Dose: 40 mg Petrolatum (Desitin Original) 1 gm TOP TID [facility] Last Admin: 08/24/17 09:27 Dose: 1 applic Rifaximin (Xifaxan) 550 mg PO BID [facility] Last Admin: 08/24/17 09:26 Dose: 550 mg Sodium Bicarbonate (Sodium Bicarbonate Tab) 1,300 mg PO TID [facility] Last Admin: 08/24/17 13:43 Dose: 1,300 mg Sodium Chloride (Sodium Chloride Tab) 1 gm PO BID [facility] Last Admin: 08/24/17 09:26 Dose: 1 gm Spironolactone (Aldactone) 50 mg PO BID [facility] Last Admin: 08/24/17 09:27 Dose: 50 mg Thiamine HCl (Vitamin B1 Tab) 100 mg PO BID [facility] Last Admin: 08/24/17 09:27 Dose: 100 mg - Labs Labs: 08/22/17 11:37 08/22/17 11:37 PT 17.9 SECONDS (9.7-12.2) H 08/16/17 07:11 INR 1.6 08/16/17 07:11 APTT 34 SECONDS (21-34) 07/18/17 13:52 Attending/Attestation - Attestation I have personally seen and examined this patient.: Yes I have fully participated in the care of the patient.: Yes I have reviewed all pertinent clinical information, including history, physical exam and plan: Yes Notes (Text): Seen and examined c/o diarrhea,not able to reach bedside commode
[2017-08-04] MEDS: LIPASE/PROTEASE/AMYLASE 4,200 U ECC PO SCH ×3 (08:51→17:40)
[2017-08-04] MEDS: Ciprofloxacin 400mg/200ml D5W 400 MG/200 ML BAG IVPB SCH ×2 (11:23→21:34)
[2017-08-04] MEDS: Cholestyramine 4 gm/Pkt UD PO SCH ×2 (11:23→21:34)
[2017-08-04] MEDS: Simethicone 80 mg Chewtab PO SCH ×3 (11:24→17:39)
[2017-08-04] MEDS: Multiple Vitamins Tab PO SCH (11:24)
[2017-08-04] MEDS: Enoxaparin 40 mg Syringe SC SCH (11:25)
[2017-08-04] MEDS: Zinc Oxide Topical 30 gm Tube TOP SCH ×3 (11:25→17:39)
[2017-08-04] MEDS: Pantoprazole 40 mg EC Tab PO SCH (11:25)
--- NOTE | 2017-08-04 14:16 | CP.PCM.PN ---
Subjective - Date & Time of Evaluation Date of Evaluation: 08/04/17 Time of Evaluation: 14:12 - Subjective Subjective: Patient had repeat paracentesis today. No new complaints. Objective - Vital Signs/Intake and Output Vital Signs (last 24 hours): Temp Pulse Resp BP Pulse Ox 98.3 F 107 H 20 117/83 98 08/04/17 07:40 08/04/17 07:40 08/04/17 07:40 08/04/17 11:38 08/04/17 07:40 Intake and Output: 08/04/17 08/04/17 06:59 18:59 Intake Total 760 Balance 760 - Medications Medications: Current Medications Cholestyramine Resin (Questran) 4 gm PO BIDPC [facility] Last Admin: 08/04/17 11:23 Dose: 4 gm Enoxaparin Sodium (Lovenox) 40 mg SC DAILY [facility] Last Admin: 08/04/17 11:25 Dose: 40 mg Folic Acid (Folic Acid) 1 mg PO DAILY [facility] Last Admin: 08/04/17 11:24 Dose: 1 mg Furosemide (Lasix) 40 mg PO DAILY [facility] Last Admin: 08/04/17 11:38 Dose: 40 mg Metronidazole (Flagyl) 500 mg in 100 mls @ 100 mls/hr IVPB Q8H [facility] Last Admin: 08/04/17 08:51 Dose: 100 mls/hr Ciprofloxacin (Cipro 400mg/200ml Dsw) 400 mg in 200 mls @ 133 mls/hr IVPB Q12 [facility] Last Admin: 08/04/17 11:23 Dose: 133 mls/hr Loperamide HCl (Imodium) 2 mg PO QID PRN PRN Reason: Diarrhea Last Admin: 08/04/17 11:38 Dose: 2 mg Lorazepam (Ativan) 1 mg PO Q4H PRN PRN Reason: Anxiety Magnesium Oxide (Mag-Ox) 800 mg PO TID [facility] Last Admin: 08/01/17 14:47 Dose: Not Given Multivitamins (Hexavitamin) 1 tab PO DAILY [facility] Last Admin: 08/04/17 11:24 Dose: 1 tab Nicotine (Nicoderm Cq) 1 patch TD DAILY [facility] Last Admin: 08/04/17 11:39 Dose: 1 patch Pantoprazole Sodium (Protonix Ec Tab) 40 mg PO DAILY [facility] Last Admin: 08/04/17 11:25 Dose: 40 mg Petrolatum (Desitin Original) 1 gm TOP TID [facility] Last Admin: 08/04/17 11:25 Dose: 1 applic Simethicone (Mylicon Chew Tab) 80 mg PO TID [facility] Last Admin: 08/04/17 11:24 Dose: 80 mg Spironolactone (Aldactone) 50 mg PO BID [facility] Last Admin: 08/04/17 11:38 Dose: 50 mg Thiamine HCl (Vitamin B1 Tab) 100 mg PO BID [facility] Last Admin: 08/04/17 11:24 Dose: 100 mg - Labs Labs: 08/03/17 08:26 08/03/17 08:26 PT 21.0 SECONDS (9.7-12.2) H 08/03/17 08:26 INR 1.8 08/03/17 08:26 APTT 34 SECONDS (21-34) 07/18/17 13:52 - Constitutional Appears: No Acute Distress - Head Exam Head Exam: ATRAUMATIC, NORMOCEPHALIC - Eye Exam Eye Exam: EOMI, PERRL - Neck Exam Neck Exam: absent: Lymphadenopathy, Thyromegaly - Respiratory Exam Respiratory Exam: NORMAL BREATHING PATTERN. absent: Rales, Rhonchi, Wheezes - Cardiovascular Exam Cardiovascular Exam: REGULAR RHYTHM, +S1, +S2. absent: Gallop, Rubs, Murmur - GI/Abdominal Exam GI & Abdominal Exam: Distended, Soft, Normal Bowel Sounds. absent: Tenderness, Mass, Organomegaly - Rectal Exam Rectal Exam: Deferred - Extremities Exam Extremities Exam: absent: Calf Tenderness, Pedal Edema Assessment and Plan (1) Alcoholic hepatitis Assessment & Plan: Liver function has declined slightly, with AST 213, ALT 58, PT 21, TBILI 2.8. Will recheck following paracentesis. Status: Acute (2) Diarrhea Assessment & Plan: Pathology from colonoscopy is still pending. Status: Acute
--- NOTE | 2017-08-04 14:16 | PCM.SURG1 ---
Surgeon's Initial Post Op Note - Surgeon's Notes Surgeon: Luis Carlos Doshi MD Supervisor Composing Room: None Type of Anesthesia: Local Pre-Operative Diagnosis: Ascites Operative Findings: US showed moderate ascites Post-Operative Diagnosis: Ascites Operation Performed: US guided paracentesis. Specimen/Specimens Removed: 4 liters of straw colored fluid Estimated Blood Loss: EBL {In ML}: 0 Blood Products Given: N/A Drains Used: No Drains Post-Op Condition: Fair Date of Surgery/Procedure: 08/04/17 Time of Surgery/Procedure: 14:00
--- NOTE | 2017-08-04 15:04 | US ---
Date of Procedure: 08/04/2017 PROCEDURE: Ultrasound-guided paracentesis, CPT 10304 Medications: 7 cc 1% Lidocaine HISTORY: Ascites, abdominal pain, cirrhosis TECHNIQUE: Following informed consent , the patient was placed supine on the stretcher and the site was marked. A limited abdominal ultrasound was performed that showed a large amount of intra-abdominal fluid. Procedural time out was called and the Pt's abdomen was marked and prepped and draped in the usual sterile fashion. Ultrasound-guided large volume paracentesis performed. A total of 4 liters of straw colored fluid was removed without complication. IMPRESSION: Ultrasound-guided large volume paracentesis.
[2017-08-04] MEDS: Albumin Human 25% (12.5 gm/50 ml) IV SCH ×2 (20:06→21:33)
[2017-08-05] MEDS: metroNIDAZOLE IV 500 mg/100 ml 500 MG/100 ML BAG IVPB SCH ×3 (00:30→17:48)
--- NOTE | 2017-08-05 07:27 | CP.PCM.PN ---
<Tima Beth - Last Filed: 08/06/17 00:05> Subjective - Date & Time of Evaluation Date of Evaluation: 08/05/17 Time of Evaluation: 07:30 - Subjective Subjective: Medicine progress note for Dr. Huitron Patient seen and examined at bedside. Patient still has ongoing diarrhea but they seem to be less frequent. He is able to make it to the commode occasionally now. Objective - Vital Signs/Intake and Output Vital Signs (last 24 hours): Temp Pulse Resp BP Pulse Ox 98.5 F 93 H 20 97/64 L 98 08/04/17 23:50 08/05/17 01:52 08/04/17 23:50 08/04/17 23:50 08/04/17 23:50 Intake and Output: 08/05/17 08/05/17 06:59 18:59 Intake Total 1050 Output Total 450 Balance 600 - Medications Medications: Current Medications Cholestyramine Resin (Questran) 4 gm PO BIDPC [facility] Last Admin: 08/04/17 21:34 Dose: 4 gm Enoxaparin Sodium (Lovenox) 40 mg SC DAILY [facility] Last Admin: 08/04/17 11:25 Dose: 40 mg Folic Acid (Folic Acid) 1 mg PO DAILY [facility] Last Admin: 08/04/17 11:24 Dose: 1 mg Furosemide (Lasix) 40 mg PO DAILY [facility] Last Admin: 08/04/17 11:38 Dose: 40 mg Metronidazole (Flagyl) 500 mg in 100 mls @ 100 mls/hr IVPB Q8H [facility] Last Admin: 08/05/17 00:30 Dose: 100 mls/hr Ciprofloxacin (Cipro 400mg/200ml Dsw) 400 mg in 200 mls @ 133 mls/hr IVPB Q12 [facility] Last Admin: 08/04/17 21:34 Dose: 133 mls/hr Loperamide HCl (Imodium) 2 mg PO QID PRN PRN Reason: Diarrhea Last Admin: 08/04/17 11:38 Dose: 2 mg Magnesium Oxide (Mag-Ox) 800 mg PO TID [facility] Last Admin: 08/01/17 14:47 Dose: Not Given Multivitamins (Hexavitamin) 1 tab PO DAILY [facility] Last Admin: 08/04/17 11:24 Dose: 1 tab Nicotine (Nicoderm Cq) 1 patch TD DAILY [facility] Last Admin: 08/04/17 11:39 Dose: 1 patch Pantoprazole Sodium (Protonix Ec Tab) 40 mg PO DAILY [facility] Last Admin: 08/04/17 11:25 Dose: 40 mg Petrolatum (Desitin Original) 1 gm TOP TID [facility] Last Admin: 08/04/17 17:39 Dose: 1 applic Simethicone (Mylicon Chew Tab) 80 mg PO TID [facility] Last Admin: 08/04/17 17:39 Dose: 80 mg Spironolactone (Aldactone) 50 mg PO BID [facility] Last Admin: 08/04/17 17:38 Dose: Not Given Thiamine HCl (Vitamin B1 Tab) 100 mg PO BID [facility] Last Admin: 08/04/17 17:39 Dose: 100 mg - Labs Labs: 08/03/17 08:26 08/03/17 08:26 PT 21.0 SECONDS (9.7-12.2) H 08/03/17 08:26 INR 1.8 08/03/17 08:26 APTT 34 SECONDS (21-34) 07/18/17 13:52 - Additional Findings Additional findings: - Constitutional Appears: No Acute Distress - Head Exam Head Exam: ATRAUMATIC, NORMOCEPHALIC - Eye Exam Eye Exam: EOMI, Normal appearance - ENT Exam ENT Exam: Mucous Membranes Moist - Respiratory Exam Respiratory Exam: Clear to Ausculation Bilateral. absent: Rales, Rhonchi, Wheezes - Cardiovascular Exam Cardiovascular Exam: REGULAR RHYTHM, +S1, +S2 - GI/Abdominal Exam GI & Abdominal Exam: Distended, Soft, Tenderness (right sided tenderness worse in upper quadrant vs lower), Normal Bowel Sounds - Extremities Exam Extremities Exam: absent: Pedal Edema, Tenderness - Neurological Exam Neurological Exam: Alert, Awake - Psychiatric Exam Psychiatric exam: Normal Affect, Normal Mood - Skin Skin Exam: Dry, Warm Assessment and Plan - Assessment and Plan (Free Text) Plan: 1.Colitis and Diarrhea No leukocytosis, afebrile giardia negative, stool ova and parasite negative, stool culture negative blood culture negative negative HIV and hep panel fecal fat study: normal c dif neg x 3 Desitin cream ordered for gluteal and sacral excoriations due to the uncontrolled loose stools Imaging: CT abd/pelvis with IV contrast 07/17: Significant bowel wall thickening involving the colon, appearance most consistent with acute colitis, cannot exclude underlying neoplasm. Small to moderate ascites. Fatty infiltration of the liver. Heterogeneous appearance to hepatic parenchyma. Some of appearance may be due to transient hepatic attenuation differences, concern for underlying lesion. Meds: Cipro 400 IV daily Flagyl 500 IV Q8 Endoscopy (07/28): small hiatal hernia, patchy mild inflammation in gastric antrum biopsies, scalloped mucosa found in duodenum, suspicious for celiac disease- biopsied Colonoscopy (07/28): internal hemorrhoids, mucosal nodule in the sigmoid colon, in transverse colon and in the ascending colon- biopsied Per Dr. South, he suspects pancreatic insufficiency as possible cause due to low stool pancreatic elastase and ordered an MRCP MRCP unable to be obtained due to patient restlessness Dr. South consulted Dr. Guerrero (help appreciated) for evaluation of possible chronic pancreatitis and possible EUS work up * Per Dr. Guerrero, pursue EUS as an outpatient for definitive diagnosis of chronic pancreatitis * Pancreatic enzymes were started with meals and Aldactone increased to 50 mg PO BID by GI team Pancreaze increased by Dr. South on 08/03/17 2.Alcohol abuse/alcohol intoxication/alcohol withdrawal Elevated serum alcohol on admission 292 Seizure and aspiration precautions Ativan 1mg q4h prn for agitation Thiamine 100 mg daily Folic acid 1 mg daily Psych consult, Dr. Man, help appreciated 3. Ascites and hepatic encephalopathy Consult GI, Dr South CT abd/pelvis shows small to moderate ascites Paracentesis done today 07/19/17 with 2.1 L straw colored fluid removed. * peritoneal fluid no growth * Fluid WBC: 147, RBC: 216, neut: 41, lymph: 43, monocyte/macrophage: 15 Albumin 12.5 gm x 2 given on 07/21/17 ammonia level: increased to 64 on 07/22/17 Continue xifaxan 550mg po BID,not on lactulose due to diarrhea started Lasix 40 mg po daily and Aldactone 25mg po BID on 07/25/17 Repeat paracentesis 08/04/17--4 Liters removed. Replenished with albumin 12.5 gm x2 doses 4.Hypokalemia and Hypomagnesemia follow levels with supplementation 5. 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 Tran help appreciated stool occult blood negative 6.Tobacco use disorder Nicotine patch 7 . S/P Urinary Retention patient urinating in urinal today monitor urine output 8. Elevated INR trending down Vitamin K 5mg po daily for a total of 5 days (day 1 on 07/26, last dose to be given on 07/30) continue to monitor 9.Prophylactic Measure/supportive care Pepcid 20mg po BID SCDs, Lovenox 40mg sc daily Simethicone 80mg po BID PT/OT Disposition: Patient is an unsafe discharge at this time. He is still unsteady on his feet and incontinent of stools. There is no family support. Case DW Dr. Tomy Beth <Ruth Huitron - Last Filed: 08/24/17 15:46> Objective - Vital Signs/Intake and Output Vital Signs (last 24 hours): Temp Pulse Resp BP Pulse Ox 98.3 F 87 20 100/66 100 08/24/17 08:40 08/24/17 08:40 08/24/17 08:40 08/24/17 08:40 08/24/17 08:40 Intake and Output: 08/24/17 08/24/17 06:59 18:59 Output Total 750 Balance -750 - Medications Medications: Current Medications Albuterol/Ipratropium (Duoneb 3 Mg/0.5 Mg (3 Ml) Ud) 3 ml INH RBID [facility] Last Admin: 08/24/17 07:14 Dose: 3 ml Cholestyramine Resin (Questran) 4 gm PO TIDPC [facility] Last Admin: 08/24/17 13:43 Dose: 4 gm Folic Acid (Folic Acid) 1 mg PO DAILY [facility] Last Admin: 08/24/17 09:27 Dose: 1 mg Lactulose (Enulose) 10 gm PO BID [facility] Last Admin: 08/24/17 09:26 Dose: 10 gm Pantoprazole Sodium (Protonix Ec Tab) 40 mg PO DAILY [facility] Last Admin: 08/24/17 09:26 Dose: 40 mg Petrolatum (Desitin Original) 1 gm TOP TID [facility] Last Admin: 08/24/17 09:27 Dose: 1 applic Rifaximin (Xifaxan) 550 mg PO BID [facility] Last Admin: 08/24/17 09:26 Dose: 550 mg Sodium Bicarbonate (Sodium Bicarbonate Tab) 1,300 mg PO TID [facility] Last Admin: 08/24/17 13:43 Dose: 1,300 mg Sodium Chloride (Sodium Chloride Tab) 1 gm PO BID [facility] Last Admin: 08/24/17 09:26 Dose: 1 gm Spironolactone (Aldactone) 50 mg PO BID [facility] Last Admin: 08/24/17 09:27 Dose: 50 mg Thiamine HCl (Vitamin B1 Tab) 100 mg PO BID [facility] Last Admin: 08/24/17 09:27 Dose: 100 mg - Labs Labs: 08/22/17 11:37 08/22/17 11:37 PT 17.9 SECONDS (9.7-12.2) H 08/16/17 07:11 INR 1.6 08/16/17 07:11 APTT 34 SECONDS (21-34) 07/18/17 13:52 Attending/Attestation - Attestation I have personally seen and examined this patient.: Yes I have fully participated in the care of the patient.: Yes I have reviewed all pertinent clinical information, including history, physical exam and plan: Yes Notes (Text): discussed withe resident I agree withe documentation of the resident's assessment and the plan
[2017-08-05 07:49] LABS: BASO # 0.1 K/uL (0.0-0.2); BASO % 0.7 % (0.0-2.0); EOS % 0.3 % (0.0-4.0); HEMOGLOBIN 8.2 g/dL (12.0-18.0); LYMPH # 1.6 K/uL (1.0-4.3); LYMPH % 19.6 % (20.0-40.0); MEAN CELL VOLUME 88.9 fL (80.0-94.0); MEAN CORPUSCULAR HGB CONC 33.8 g/dL (33.0-37.0); MEAN PLATELET VOLUME 8.6 fL (7.2-11.7); MONO # 0.6 K/uL (0.0-0.8); MONO % 7.4 % (0.0-10.0); NEUT # 5.9 K/uL (1.8-7.0); RBC 2.72 Mil/uL (4.40-5.90); RED CELL DISTRIBUTION WIDTH 19.4 % (11.5-14.5); WHITE BLOOD COUNT 8.3 K/uL (4.8-10.8)
[2017-08-05 07:52] LABS: INR 2.3; PROTHROMBIN TIME 26.6 SECONDS (9.7-12.2)
[2017-08-05] MEDS: Cholestyramine 4 gm/Pkt UD PO SCH ×2 (08:15→17:48)
[2017-08-05] MEDS: LIPASE/PROTEASE/AMYLASE 4,200 U ECC PO SCH ×3 (08:16→17:47)
[2017-08-05 08:28] LABS: ALB/GLOB RATIO 0.7 (1.0-2.1); ALBUMIN 2.3 g/dL (3.5-5.0); ALT/SGPT 51 U/L (21-72); AST/SGOT 149 U/L (17-59); BLOOD UREA NITROGEN < 2 mg/dL (9-20); CALCIUM 7.4 mg/dl (8.6-10.4); GFR AFRICAN-AMERICAN > 60; GFR NON-AFRICAN AMERICAN > 60; MAGNESIUM 1.1 mg/dL (1.6-2.3)
[2017-08-05] MEDS: Zinc Oxide Topical 30 gm Tube TOP SCH ×3 (10:00→17:48)
[2017-08-05] MEDS: Enoxaparin 40 mg Syringe SC SCH (10:02)
[2017-08-05] MEDS: Simethicone 80 mg Chewtab PO SCH ×3 (10:03→17:48)
[2017-08-05] MEDS: Pantoprazole 40 mg EC Tab PO SCH (10:03)
[2017-08-05] MEDS: Multiple Vitamins Tab PO SCH (10:03)
[2017-08-05] MEDS: Ciprofloxacin 400mg/200ml D5W 400 MG/200 ML BAG IVPB SCH ×2 (10:07→21:55)
[2017-08-06] MEDS: metroNIDAZOLE IV 500 mg/100 ml 500 MG/100 ML BAG IVPB SCH ×2 (00:40→07:58)
[2017-08-06] MEDS: Potassium Chloride 20 mEq ER Tab PO SCH ×3 (00:40→07:58)
[2017-08-06] MEDS: Magnesium Sulfate 1 gm in D5W 1 GM/100 ML BAG IVPB SCH ×3 (02:40→04:18)
[2017-08-06] MEDS ORDERED: Magnesium Sulfate 1 gm in D5W 1 GM/100 ML BAG IVPB SCH (04:15)
[2017-08-06] MEDS: LIPASE/PROTEASE/AMYLASE 4,200 U ECC PO SCH ×3 (07:59→17:53)
--- NOTE | 2017-08-06 08:33 | CP.PCM.PN ---
Subjective - Date & Time of Evaluation Date of Evaluation: 08/06/17 Time of Evaluation: 08:15 - Subjective Subjective: Patient continues to complain of abdominal pain. The diarrhea also persists, three times this morning. Objective - Vital Signs/Intake and Output Vital Signs (last 24 hours): Temp Pulse Resp BP Pulse Ox 98.4 F 92 H 20 99/70 L 98 08/06/17 07:40 08/06/17 07:40 08/06/17 07:40 08/06/17 07:40 08/06/17 07:40 Intake and Output: 08/06/17 08/06/17 06:59 18:59 Intake Total 800 Balance 800 - Medications Medications: Current Medications Cholestyramine Resin (Questran) 4 gm PO BIDPC [facility] Last Admin: 08/05/17 17:48 Dose: 4 gm Folic Acid (Folic Acid) 1 mg PO DAILY [facility] Last Admin: 08/05/17 10:03 Dose: 1 mg Furosemide (Lasix) 40 mg PO DAILY [facility] Last Admin: 08/05/17 10:03 Dose: 40 mg Metronidazole (Flagyl) 500 mg in 100 mls @ 100 mls/hr IVPB Q8H [facility] Last Admin: 08/06/17 07:58 Dose: 100 mls/hr Ciprofloxacin (Cipro 400mg/200ml Dsw) 400 mg in 200 mls @ 133 mls/hr IVPB Q12 [facility] Last Admin: 08/05/17 21:55 Dose: 133 mls/hr Loperamide HCl (Imodium) 2 mg PO QID PRN PRN Reason: Diarrhea Last Admin: 08/05/17 10:03 Dose: 2 mg Magnesium Oxide (Mag-Ox) 800 mg PO TID [facility] Last Admin: 08/01/17 14:47 Dose: Not Given Multivitamins (Hexavitamin) 1 tab PO DAILY [facility] Last Admin: 08/05/17 10:03 Dose: 1 tab Nicotine (Nicoderm Cq) 1 patch TD DAILY [facility] Last Admin: 08/05/17 10:02 Dose: 1 patch Pantoprazole Sodium (Protonix Ec Tab) 40 mg PO DAILY [facility] Last Admin: 08/05/17 10:03 Dose: 40 mg Petrolatum (Desitin Original) 1 gm TOP TID [facility] Last Admin: 08/05/17 17:48 Dose: 1 applic Potassium Chloride (K-Dur 20 Meq Er Tab) 40 meq PO Q4H [facility] Stop: 08/06/17 08:16 Last Admin: 08/06/17 07:58 Dose: 40 meq Simethicone (Mylicon Chew Tab) 80 mg PO TID [facility] Last Admin: 08/05/17 17:48 Dose: 80 mg Spironolactone (Aldactone) 50 mg PO BID [facility] Last Admin: 08/05/17 17:05 Dose: Not Given Thiamine HCl (Vitamin B1 Tab) 100 mg PO BID [facility] Last Admin: 08/05/17 17:47 Dose: 100 mg - Labs Labs: 08/05/17 07:25 08/05/17 07:25 PT 26.6 SECONDS (9.7-12.2) H D 08/05/17 07:25 INR 2.3 D 08/05/17 07:25 APTT 34 SECONDS (21-34) 07/18/17 13:52 - Constitutional Appears: No Acute Distress - Neck Exam Neck Exam: absent: Lymphadenopathy, Thyromegaly - Respiratory Exam Respiratory Exam: NORMAL BREATHING PATTERN. absent: Rales, Rhonchi, Wheezes - Cardiovascular Exam Cardiovascular Exam: REGULAR RHYTHM, +S1, +S2. absent: Gallop, Rubs, Murmur - GI/Abdominal Exam GI & Abdominal Exam: Distended, Soft, Normal Bowel Sounds. absent: Tenderness, Mass, Organomegaly - Rectal Exam Rectal Exam: Deferred - Extremities Exam Extremities Exam: absent: Calf Tenderness, Pedal Edema Assessment and Plan (1) Alcoholic hepatitis Assessment & Plan: Liver function is declining: TBILI 2.7, PT 26.6, AST 149, ALT 51. Will repeat vitamin K for three days. Status: Acute (2) Diarrhea Assessment & Plan: Diarrhea persists. Will increase pancreatic enzymes to four capsules with each meal. Status: Acute
[2017-08-06] MEDS: Zinc Oxide Topical 30 gm Tube TOP SCH ×3 (10:33→17:53)
[2017-08-06] MEDS: Pantoprazole 40 mg EC Tab PO SCH (10:34)
[2017-08-06] MEDS: Multiple Vitamins Tab PO SCH (10:34)
[2017-08-06] MEDS: Cholestyramine 4 gm/Pkt UD PO SCH ×2 (10:34→17:53)
[2017-08-06] MEDS: Simethicone 80 mg Chewtab PO SCH ×3 (10:34→17:52)
[2017-08-06 13:08] LABS: ALB/GLOB RATIO 0.7 (1.0-2.1); ALBUMIN 2.4 g/dL (3.5-5.0); ALT/SGPT 60 U/L (21-72); AST/SGOT 198 U/L (17-59); BLOOD UREA NITROGEN 2 mg/dL (9-20); CALCIUM 7.6 mg/dl (8.6-10.4); GFR AFRICAN-AMERICAN > 60; GFR NON-AFRICAN AMERICAN > 60; MAGNESIUM 1.7 mg/dL (1.6-2.3)
[2017-08-06] MEDS ORDERED: Phytonadione 10 mg/ml Inj (Adult) SC SCH (17:00)
--- NOTE | 2017-08-06 17:22 | CP.PCM.PN ---
<Js Abdi - Last Filed: 08/06/17 17:28> Subjective - Date & Time of Evaluation Date of Evaluation: 08/06/17 Time of Evaluation: 08:15 - Subjective Subjective: Medicine progress note for Dr. Huitron Patient seen and examined at bedside. Patient reports abdominal pain is mild today. He reports 2 episodes of diarrhea this morning, semi-formed but mainly liquid. He is using the commode. No additional acute complaints. Objective - Vital Signs/Intake and Output Vital Signs (last 24 hours): Temp Pulse Resp BP Pulse Ox 98.0 F 98 H 20 103/72 97 08/06/17 16:11 08/06/17 16:11 08/06/17 16:11 08/06/17 16:11 08/06/17 16:11 Intake and Output: 08/06/17 08/06/17 06:59 18:59 Intake Total 800 450 Output Total 3 Balance 800 447 - Medications Medications: Current Medications Cholestyramine Resin (Questran) 4 gm PO BIDPC [facility] Last Admin: 08/06/17 10:34 Dose: 4 gm Folic Acid (Folic Acid) 1 mg PO DAILY [facility] Last Admin: 08/06/17 10:34 Dose: 1 mg Furosemide (Lasix) 40 mg PO DAILY [facility] Last Admin: 08/06/17 10:34 Dose: 40 mg Loperamide HCl (Imodium) 2 mg PO QID PRN PRN Reason: Diarrhea Last Admin: 08/05/17 10:03 Dose: 2 mg Magnesium Oxide (Mag-Ox) 800 mg PO TID [facility] Last Admin: 08/01/17 14:47 Dose: Not Given Nicotine (Nicoderm Cq) 1 patch TD DAILY [facility] Last Admin: 08/06/17 10:34 Dose: 1 patch Pantoprazole Sodium (Protonix Ec Tab) 40 mg PO DAILY [facility] Last Admin: 08/06/17 10:34 Dose: 40 mg Petrolatum (Desitin Original) 1 gm TOP TID [facility] Last Admin: 08/06/17 13:48 Dose: 1 applic Phytonadione (Vitamin K Inj) 10 mg SC QD5 [facility] Stop: 08/08/17 17:01 Simethicone (Mylicon Chew Tab) 80 mg PO TID [facility] Last Admin: 08/06/17 13:48 Dose: 80 mg Spironolactone (Aldactone) 50 mg PO BID [facility] Last Admin: 08/06/17 10:33 Dose: 50 mg Thiamine HCl (Vitamin B1 Tab) 100 mg PO BID [facility] Last Admin: 08/06/17 10:35 Dose: 100 mg - Labs Labs: 08/05/17 07:25 08/06/17 12:41 PT 26.6 SECONDS (9.7-12.2) H D 08/05/17 07:25 INR 2.3 D 08/05/17 07:25 APTT 34 SECONDS (21-34) 07/18/17 13:52 - Additional Findings Additional findings: - Constitutional Appears: No Acute Distress - Head Exam Head Exam: ATRAUMATIC, NORMOCEPHALIC - Eye Exam Eye Exam: EOMI, Normal appearance - ENT Exam ENT Exam: Mucous Membranes Moist - Respiratory Exam Respiratory Exam: Clear to Ausculation Bilateral. absent: Rales, Rhonchi, Wheezes - Cardiovascular Exam Cardiovascular Exam: REGULAR RHYTHM, +S1, +S2 - GI/Abdominal Exam GI & Abdominal Exam: Distended, Soft, Tenderness (mild right sided tenderness [id number]>[id number]), Normal Bowel Sounds - Extremities Exam Extremities Exam: absent: Pedal Edema, Tenderness - Neurological Exam Neurological Exam: Alert, Awake - Psychiatric Exam Psychiatric exam: Normal Affect, Normal Mood - Skin Skin Exam: Dry, Warm Assessment and Plan - Assessment and Plan (Free Text) Assessment: Colitis and Diarrhea 08/06: persistent 2 episodes this am. GI Dr. South on board -> Will increase pancreatic enzymes to four capsules with each meal. No leukocytosis, afebrile giardia negative, stool ova and parasite negative, stool culture negative blood culture negative negative HIV and hep panel fecal fat study: normal c dif neg x 3 Desitin cream ordered for gluteal and sacral excoriations due to the uncontrolled loose stools Imaging: CT abd/pelvis with IV contrast 07/17: Significant bowel wall thickening involving the colon, appearance most consistent with acute colitis, cannot exclude underlying neoplasm. Small to moderate ascites. Fatty infiltration of the liver. Heterogeneous appearance to hepatic parenchyma. Some of appearance may be due to transient hepatic attenuation differences, concern for underlying lesion. Meds: Cipro 400 IV daily Flagyl 500 IV Q8 Endoscopy (07/28): small hiatal hernia, patchy mild inflammation in gastric antrum biopsies, scalloped mucosa found in duodenum, suspicious for celiac disease- biopsied Colonoscopy (07/28): internal hemorrhoids, mucosal nodule in the sigmoid colon, in transverse colon and in the ascending colon- biopsied Per Dr. South, he suspects pancreatic insufficiency as possible cause due to low stool pancreatic elastase and ordered an MRCP MRCP unable to be obtained due to patient restlessness Dr. South consulted Dr. Guerrero (help appreciated) for evaluation of possible chronic pancreatitis and possible EUS work up * Per Dr. Guerrero, pursue EUS as an outpatient for definitive diagnosis of chronic pancreatitis * Pancreatic enzymes were started with meals and Aldactone increased to 50 mg PO BID by GI team Pancreaze increased by Dr. South on 08/03/17 Alcohol abuse/alcohol intoxication/alcohol withdrawal Elevated serum alcohol on admission 292 Seizure and aspiration precautions Ativan 1mg q4h prn for agitation Thiamine 100 mg daily Folic acid 1 mg daily Psych consult, Dr. Man, help appreciated Ascites and hepatic encephalopathy 08/06: GI Dr. South on board -> Liver function is declining: TBILI 2.7, PT 26.6, AST 149, ALT 51. Will repeat vitamin K for three days. Consult GI, Dr South CT abd/pelvis shows small to moderate ascites Paracentesis done today 07/19/17 with 2.1 L straw colored fluid removed. * peritoneal fluid no growth * Fluid WBC: 147, RBC: 216, neut: 41, lymph: 43, monocyte/macrophage: 15 Albumin 12.5 gm x 2 given on 07/21/17 ammonia level: increased to 64 on 07/22/17 Continue xifaxan 550mg po BID,not on lactulose due to diarrhea started Lasix 40 mg po daily and Aldactone 25mg po BID on 07/25/17 Repeat paracentesis 08/04/17--4 Liters removed. Replenished with albumin 12.5 gm x2 doses Hyponatremia 08/06: Na 122L; likely due to third spacing; Nephro consult Dr. Middleton, f/u recs Hypokalemia and Hypomagnesemia 08/06: K 4.6 / Mg 1.7 - improved; continue to monitor ollow levels with supplementation Anemia 08/06: CBC not drawn; will followup am reading secondary to bone marrow suppresion from ETOH patient transfused 1 u PRBC on 07/20/17 Heme/onc consulted, Dr. Tran help appreciated stool occult blood negative Tobacco use disorder Nicotine patch S/P Urinary Retention patient urinating in urinal today monitor urine output Elevated INR trending down Vitamin K 5mg po daily for a total of 5 days (day 1 on 07/26, last dose to be given on 07/30) continue to monitor Prophylactic Measure/supportive care Pepcid 20mg po BID SCDs, Lovenox 40mg sc daily Simethicone 80mg po BID PT/OT Disposition: Patient is an unsafe discharge at this time. He is still unsteady on his feet and incontinent of stools. There is no family support. Case DW Dr. Tomy Abdi, PGY2 <Ruth Huitron - Last Filed: 08/24/17 17:58> Objective - Vital Signs/Intake and Output Vital Signs (last 24 hours): Temp Pulse Resp BP Pulse Ox 99.0 F 87 20 111/72 100 08/24/17 15:00 08/24/17 15:00 08/24/17 15:00 08/24/17 15:00 08/24/17 15:00 Intake and Output: 08/24/17 08/24/17 06:59 18:59 Output Total 750 Balance -750 - Medications Medications: Current Medications Albuterol/Ipratropium (Duoneb 3 Mg/0.5 Mg (3 Ml) Ud) 3 ml INH RBID [facility] Last Admin: 08/24/17 07:14 Dose: 3 ml Cholestyramine Resin (Questran) 4 gm PO TIDPC [facility] Last Admin: 08/24/17 13:43 Dose: 4 gm Folic Acid (Folic Acid) 1 mg PO DAILY [facility] Last Admin: 08/24/17 09:27 Dose: 1 mg Lactulose (Enulose) 10 gm PO BID [facility] Last Admin: 08/24/17 09:26 Dose: 10 gm Pantoprazole Sodium (Protonix Ec Tab) 40 mg PO DAILY [facility] Last Admin: 08/24/17 09:26 Dose: 40 mg Petrolatum (Desitin Original) 1 gm TOP TID [facility] Last Admin: 08/24/17 09:27 Dose: 1 applic Rifaximin (Xifaxan) 550 mg PO BID [facility] Last Admin: 08/24/17 09:26 Dose: 550 mg Sodium Bicarbonate (Sodium Bicarbonate Tab) 1,300 mg PO TID [facility] Last Admin: 08/24/17 13:43 Dose: 1,300 mg Sodium Chloride (Sodium Chloride Tab) 1 gm PO BID [facility] Last Admin: 08/24/17 09:26 Dose: 1 gm Spironolactone (Aldactone) 50 mg PO BID [facility] Last Admin: 08/24/17 09:27 Dose: 50 mg Thiamine HCl (Vitamin B1 Tab) 100 mg PO BID [facility] Last Admin: 08/24/17 09:27 Dose: 100 mg - Labs Labs: 08/22/17 11:37 08/22/17 11:37 PT 17.9 SECONDS (9.7-12.2) H 08/16/17 07:11 INR 1.6 08/16/17 07:11 APTT 34 SECONDS (21-34) 07/18/17 13:52 Attending/Attestation - Attestation I have personally seen and examined this patient.: Yes I have fully participated in the care of the patient.: Yes I have reviewed all pertinent clinical information, including history, physical exam and plan: Yes Notes (Text): Discussed with the resident I agree with the documentation of the assessment and the plan
--- NOTE | 2017-08-07 09:06 | CP.PCM.PN ---
Subjective - Date & Time of Evaluation Date of Evaluation: 08/07/17 Time of Evaluation: 09:04 - Subjective Subjective: Patient states that the abdominal pain in the RUQ is unchanged. He continues to experience diarrhea, five or six times already today. His appetite is good. he denies having nausea or vomiting. Objective - Vital Signs/Intake and Output Vital Signs (last 24 hours): Temp Pulse Resp BP Pulse Ox 98.3 F 85 20 103/69 98 08/07/17 08:24 08/07/17 08:24 08/07/17 08:24 08/07/17 08:24 08/07/17 08:24 - Medications Medications: Current Medications Cholestyramine Resin (Questran) 4 gm PO BIDPC [facility] Last Admin: 08/06/17 17:53 Dose: 4 gm Folic Acid (Folic Acid) 1 mg PO DAILY [facility] Last Admin: 08/06/17 10:34 Dose: 1 mg Furosemide (Lasix) 40 mg PO DAILY [facility] Last Admin: 08/06/17 10:34 Dose: 40 mg Loperamide HCl (Imodium) 2 mg PO QID PRN PRN Reason: Diarrhea Last Admin: 08/05/17 10:03 Dose: 2 mg Magnesium Oxide (Mag-Ox) 800 mg PO TID [facility] Last Admin: 08/01/17 14:47 Dose: Not Given Nicotine (Nicoderm Cq) 1 patch TD DAILY [facility] Last Admin: 08/06/17 10:34 Dose: 1 patch Pantoprazole Sodium (Protonix Ec Tab) 40 mg PO DAILY [facility] Last Admin: 08/06/17 10:34 Dose: 40 mg Petrolatum (Desitin Original) 1 gm TOP TID [facility] Last Admin: 08/06/17 17:53 Dose: 1 applic Phytonadione (Vitamin K Inj) 10 mg SC QD5 [facility] Stop: 08/08/17 17:01 Simethicone (Mylicon Chew Tab) 80 mg PO TID [facility] Last Admin: 08/06/17 17:52 Dose: 80 mg Spironolactone (Aldactone) 50 mg PO BID [facility] Last Admin: 08/06/17 17:52 Dose: 50 mg Thiamine HCl (Vitamin B1 Tab) 100 mg PO BID [facility] Last Admin: 08/06/17 17:52 Dose: 100 mg - Labs Labs: 08/05/17 07:25 08/06/17 12:41 PT 26.6 SECONDS (9.7-12.2) H D 08/05/17 07:25 INR 2.3 D 08/05/17 07:25 APTT 34 SECONDS (21-34) 07/18/17 13:52 - Constitutional Appears: No Acute Distress - Head Exam Head Exam: ATRAUMATIC, NORMOCEPHALIC - Eye Exam Eye Exam: absent: Scleral icterus - Neck Exam Neck Exam: absent: Lymphadenopathy, Thyromegaly - Respiratory Exam Respiratory Exam: NORMAL BREATHING PATTERN. absent: Rales, Rhonchi, Wheezes - Cardiovascular Exam Cardiovascular Exam: REGULAR RHYTHM, +S1, +S2. absent: Gallop, Rubs, Murmur - GI/Abdominal Exam GI & Abdominal Exam: Distended, Soft, Normal Bowel Sounds. absent: Tenderness, Organomegaly Additional comments: Positive fluid wave - Rectal Exam Rectal Exam: Deferred - Extremities Exam Extremities Exam: absent: Calf Tenderness, Pedal Edema Assessment and Plan (1) Alcoholic hepatitis Assessment & Plan: Liver function is slowly worsening, with increasing bilirubin and prothrombin time. today's labs are pending. As of 08/06/17, TBILI was 2.6, up from renea of 2.2. The most recent PT/INR was 26.6/2.3, up from naidr of 18.5/1.6. Status: Acute (2) Diarrhea Assessment & Plan: Diarrhea persists despite increased dose of pancreatic enzyme supplements. Status: Acute
[2017-08-07] MEDS: Simethicone 80 mg Chewtab PO SCH ×3 (09:45→18:21)
[2017-08-07] MEDS: Pantoprazole 40 mg EC Tab PO SCH (09:45)
[2017-08-07] MEDS: LIPASE/PROTEASE/AMYLASE 4,200 U ECC PO SCH ×3 (09:54→18:20)
[2017-08-07] MEDS: Cholestyramine 4 gm/Pkt UD PO SCH ×2 (09:56→18:21)
[2017-08-07] MEDS: Zinc Oxide Topical 30 gm Tube TOP SCH ×3 (09:57→18:24)
[2017-08-07] MEDS ORDERED: Sodium Chloride 0.9% 500 ML IV ONE (11:07)
[2017-08-07 12:18] LABS: INR 1.9; PROTHROMBIN TIME 21.8 SECONDS (9.7-12.2)
[2017-08-07 12:19] LABS: BASO # 0.1 K/uL (0.0-0.2); BASO % 0.8 % (0.0-2.0); EOS % 0.3 % (0.0-4.0); HEMOGLOBIN 8.4 g/dL (12.0-18.0); LYMPH # 1.7 K/uL (1.0-4.3); LYMPH % 16.3 % (20.0-40.0); MEAN CELL VOLUME 89.1 fL (80.0-94.0); MEAN CORPUSCULAR HEMOGLOBIN 30.1 pg (27.0-31.0); MEAN CORPUSCULAR HGB CONC 33.8 g/dL (33.0-37.0); MONO # 0.8 K/uL (0.0-0.8); MONO % 7.6 % (0.0-10.0); NEUT # 7.6 K/uL (1.8-7.0); NRBC % 0.1 % (0.0-2.0); RBC 2.81 Mil/uL (4.40-5.90); RED CELL DISTRIBUTION WIDTH 19.2 % (11.5-14.5); WHITE BLOOD COUNT 10.2 K/uL (4.8-10.8)
[2017-08-07 12:28] LABS: OSMOLALITY,URINE 461 mosm/kg (300-1000)
[2017-08-07 12:57] LABS: ALB/GLOB RATIO 0.7 (1.0-2.1); ALBUMIN 2.4 g/dL (3.5-5.0); ALT/SGPT 62 U/L (21-72); AST/SGOT 190 U/L (17-59); BLOOD UREA NITROGEN 3 mg/dL (9-20); CALCIUM 7.7 mg/dl (8.6-10.4); GFR AFRICAN-AMERICAN > 60; GFR NON-AFRICAN AMERICAN > 60; MAGNESIUM 1.5 mg/dL (1.6-2.3)
--- NOTE | 2017-08-07 15:13 | CP.PCM.CON ---
History of Present Illness - History of Present Illness History of Present Illness: RENAL CONSULT for Hyponatremia HPI: 51 yo M w/ pmh of etoh abuse, cirrhosis that was initially admitted w/ acute colitis and concern for HALE. He was treated w/ abx for the colitis and as work up for his cirrhosis had paracenesis performed. He also had EGD and colo during the admission as well. He has continued to have persistent diarrhea through the admission. His NA has been dropping in the interim and we are consulted for the hyponatremia. The etiology of cirrhosis presumable is secondary to etoh cirrhosis. ros: a full detailed ros is negative except as in my hpi PMH: Alcohol abuse PSH: Denies FMH: Denies esrd Social: + etoh, + tobacco no ivdu states he chews tobacco since age of 18, drinks 3 glasses of rum daily for the past 15 years. Homeless. Home meds: None Allergy: NKDA vs as below gen: nad sclera non icteric op clear poor dentition neck supple cv: +S1+s2 no rub lungs cta anteriorlly abd slightly distended neuro: follows command psych: flat skin no rash imp: hyponatremia / colitis / anemia / hypomagnesemia/ cirrhosis plan: Na - not clear if hyponatremia is due to cirrhosis or hypovolemia from diuretics. Would suggest trial of holding timoteo and lasix to see if na improves. replete mag f/u GI re: cirrhosis monitor H and H discussed w/ hospitalist. Past Patient History - Infectious Disease Hx of Infectious Diseases: None - Tetanus Immunizations Tetanus Immunization: Unknown - Past Medical History & Family History Past Medical History?: Yes - Past Social History Smoking Status: Never Smoked Chewing Tobacco Use: Yes Alcohol: > 2 Drinks/Day Drugs: Denies Home Situation {Lives}: Homeless - CARDIAC Hx Hypertension: Yes - PULMONARY Hx Respiratory Disorders: No - NEUROLOGICAL Hx Neurological Disorder: No - HEENT Hx HEENT Problems: No - RENAL Hx Chronic Kidney Disease: No - ENDOCRINE/METABOLIC Hx Endocrine Disorders: No - HEMATOLOGICAL/ONCOLOGICAL Hx Blood Disorders: No - INTEGUMENTARY Hx Dermatological Problems: No - MUSCULOSKELETAL/RHEUMATOLOGICAL Hx Musculoskeletal Disorders: No Hx Falls: No - GASTROINTESTINAL Hx Gastrointestinal Disorders: Yes Hx Liver Failure: Yes Other/Comment: LIVER CIRRHOSIS AND ASCITES. - GENITOURINARY/GYNECOLOGICAL Hx Genitourinary Disorders: No - PSYCHIATRIC Hx Substance Use: No - SURGICAL HISTORY Hx Surgeries: No - ANESTHESIA Hx Anesthesia: No Meds Allergies/Adverse Reactions: Allergies Allergy/AdvReac Type Severity Reaction Status Date / Time No Known Allergies Allergy Verified 06/22/17 20:40 - Medications Medications: Current Medications Cholestyramine Resin (Questran) 4 gm PO BIDPC [facility] Last Admin: 08/07/17 09:56 Dose: 4 gm Folic Acid (Folic Acid) 1 mg PO DAILY [facility] Last Admin: 08/07/17 09:45 Dose: 1 mg Furosemide (Lasix) 40 mg PO DAILY [facility] Last Admin: 08/07/17 09:56 Dose: Not Given Sodium Chloride (Sodium Chloride 0.9%) 500 mls @ 100 mls/hr IV .Q5H ONE Stop: 08/07/17 16:06 Last Admin: 08/07/17 11:23 Dose: 100 mls/hr Loperamide HCl (Imodium) 2 mg PO QID PRN PRN Reason: Diarrhea Last Admin: 08/07/17 09:45 Dose: 2 mg Magnesium Oxide (Mag-Ox) 800 mg PO TID [facility] Last Admin: 08/01/17 14:47 Dose: Not Given Nicotine (Nicoderm Cq) 1 patch TD DAILY [facility] Last Admin: 08/07/17 09:56 Dose: 1 patch Pantoprazole Sodium (Protonix Ec Tab) 40 mg PO DAILY [facility] Last Admin: 08/07/17 09:45 Dose: 40 mg Petrolatum (Desitin Original) 1 gm TOP TID [facility] Last Admin: 08/07/17 13:24 Dose: 1 applic Phytonadione (Vitamin K Inj) 10 mg SC QD5 [facility] Stop: 08/08/17 17:01 Simethicone (Mylicon Chew Tab) 80 mg PO TID [facility] Last Admin: 08/07/17 13:20 Dose: 80 mg Spironolactone (Aldactone) 50 mg PO BID [facility] Last Admin: 08/07/17 09:45 Dose: 50 mg Thiamine HCl (Vitamin B1 Tab) 100 mg PO BID [facility] Last Admin: 08/07/17 09:45 Dose: 100 mg Results - Vital Signs Recent Vital Signs: Last Vital Signs Temp 98.3 F 08/07/17 08:24 Pulse 85 08/07/17 08:24 Resp 20 08/07/17 08:24 BP 103/69 08/07/17 08:24 Pulse Ox 98 01/21/18 08:24 - Labs Result Diagrams: 08/07/17 12:06 08/07/17 12:06 Labs: Laboratory Results - last 24 hr 08/06/17 08/07/17 08/07/17 22:58 12:06 12:06 WBC 10.2 RBC 2.81 L Hgb 8.4 L Hct 25.0 L MCV 89.1 MCH 30.1 MCHC 33.8 RDW 19.2 H Plt Count 237 MPV 9.0 Neut % (Auto) 75.0 Lymph % (Auto) 16.3 L Lake % (Auto) 7.6 Eos % (Auto) 0.3 Baso % (Auto) 0.8 Neut # 7.6 H Lymph # 1.7 Lake # 0.8 Eos # 0.0 Baso # 0.1 PT INR Sodium 125 L Potassium 4.5 Chloride 96 L Carbon Dioxide 22 Anion Gap 11 BUN 3 L Creatinine 0.6 L Est GFR ( Amer) > 60 Est GFR (Non-Af Amer) > 60 Random Glucose 108 Serum Osmolality 270 L Calcium 7.7 L Phosphorus 2.6 Magnesium 1.5 L Total Bilirubin 2.0 H AST 190 H ALT 62 Alkaline Phosphatase 196 H Total Protein 5.8 L Albumin 2.4 L Globulin 3.4 Albumin/Globulin Ratio 0.7 L Urine Osmolality Ur Random Sodium 08/07/17 08/07/17 12:06 12:13 WBC RBC Hgb Hct MCV MCH MCHC RDW Plt Count MPV Neut % (Auto) Lymph % (Auto) Lake % (Auto) Eos % (Auto) Baso % (Auto) Neut # Lymph # Lake # Eos # Baso # PT 21.8 H INR 1.9 Sodium Potassium Chloride Carbon Dioxide Anion Gap BUN Creatinine Est GFR ( Amer) Est GFR (Non-Af Amer) Random Glucose Serum Osmolality Calcium Phosphorus Magnesium Total Bilirubin AST ALT Alkaline Phosphatase Total Protein Albumin Globulin Albumin/Globulin Ratio Urine Osmolality 461 Ur Random Sodium 43
--- NOTE | 2017-08-07 20:56 | CP.PCM.PN ---
<Js Abdi - Last Filed: 08/07/17 20:54> Subjective - Date & Time of Evaluation Date of Evaluation: 08/07/17 Time of Evaluation: 08:05 - Subjective Subjective: Medicine progress note for Dr. Huitron Patient seen and examined at bedside. Patient reports continued diffuse abdominal pain, rated 3/10. He continues to reports diarrhea, 3 episodes today, however per nursing, frequency / volume. Denies nausea / vomiting. Patient is ambulating. No additional acute complaints. Objective - Vital Signs/Intake and Output Vital Signs (last 24 hours): Temp Pulse Resp BP Pulse Ox 98.3 F 112 H 20 103/68 95 08/07/17 15:00 08/07/17 16:00 08/07/17 15:00 08/07/17 15:00 08/07/17 15:00 Intake and Output: 08/07/17 08/08/17 18:59 06:59 Intake Total 1020 Balance 1020 - Medications Medications: Current Medications Cholestyramine Resin (Questran) 4 gm PO BIDPC [facility] Last Admin: 08/07/17 18:21 Dose: 4 gm Folic Acid (Folic Acid) 1 mg PO DAILY [facility] Last Admin: 08/07/17 09:45 Dose: 1 mg Furosemide (Lasix) 40 mg PO DAILY [facility] Last Admin: 08/07/17 09:56 Dose: Not Given Loperamide HCl (Imodium) 2 mg PO QID PRN PRN Reason: Diarrhea Last Admin: 08/07/17 09:45 Dose: 2 mg Magnesium Oxide (Mag-Ox) 800 mg PO TID [facility] Last Admin: 08/01/17 14:47 Dose: Not Given Nicotine (Nicoderm Cq) 1 patch TD DAILY [facility] Last Admin: 08/07/17 09:56 Dose: 1 patch Pantoprazole Sodium (Protonix Ec Tab) 40 mg PO DAILY [facility] Last Admin: 08/07/17 09:45 Dose: 40 mg Petrolatum (Desitin Original) 1 gm TOP TID [facility] Last Admin: 08/07/17 18:24 Dose: 1 applic Phytonadione (Vitamin K Inj) 10 mg SC QD5 [facility] Stop: 08/08/17 17:01 Simethicone (Mylicon Chew Tab) 80 mg PO TID [facility] Last Admin: 08/07/17 18:21 Dose: 80 mg Spironolactone (Aldactone) 50 mg PO BID [facility] Last Admin: 08/07/17 09:45 Dose: 50 mg Thiamine HCl (Vitamin B1 Tab) 100 mg PO BID [facility] Last Admin: 08/07/17 18:21 Dose: 100 mg - Labs Labs: 08/07/17 12:06 08/07/17 12:06 PT 21.8 SECONDS (9.7-12.2) H 08/07/17 12:06 INR 1.9 08/07/17 12:06 APTT 34 SECONDS (21-34) 07/18/17 13:52 - Additional Findings Additional findings: - Constitutional Appears: No Acute Distress - Head Exam Head Exam: ATRAUMATIC, NORMOCEPHALIC - Eye Exam Eye Exam: EOMI, Normal appearance - ENT Exam ENT Exam: Mucous Membranes Moist - Respiratory Exam Respiratory Exam: Clear to Ausculation Bilateral. absent: Rales, Rhonchi, Wheezes - Cardiovascular Exam Cardiovascular Exam: REGULAR RHYTHM, +S1, +S2 - GI/Abdominal Exam GI & Abdominal Exam: Distended, Soft, Tenderness (mild diffuse), Normal Bowel Sounds - Extremities Exam Extremities Exam: absent: Pedal Edema, Tenderness - Neurological Exam Neurological Exam: Alert, Awake - Psychiatric Exam Psychiatric exam: Normal Affect, Normal Mood - Skin Skin Exam: Dry, Warm Assessment and Plan - Assessment and Plan (Free Text) Assessment: Colitis and Diarrhea 08/07: diarrhea persists, however patient may not be a great historian (possible 2/2 ETOH dementia). 08/06: persistent 2 episodes this am. GI Dr. South on board -> Will increase pancreatic enzymes to four capsules with each meal. No leukocytosis, afebrile giardia negative, stool ova and parasite negative, stool culture negative blood culture negative negative HIV and hep panel fecal fat study: normal c dif neg x 3 Desitin cream ordered for gluteal and sacral excoriations due to the uncontrolled loose stools Imaging: CT abd/pelvis with IV contrast 07/17: Significant bowel wall thickening involving the colon, appearance most consistent with acute colitis, cannot exclude underlying neoplasm. Small to moderate ascites. Fatty infiltration of the liver. Heterogeneous appearance to hepatic parenchyma. Some of appearance may be due to transient hepatic attenuation differences, concern for underlying lesion. Meds: Cipro 400 IV daily Flagyl 500 IV Q8 Endoscopy (07/28): small hiatal hernia, patchy mild inflammation in gastric antrum biopsies, scalloped mucosa found in duodenum, suspicious for celiac disease- biopsied Colonoscopy (07/28): internal hemorrhoids, mucosal nodule in the sigmoid colon, in transverse colon and in the ascending colon- biopsied Per Dr. South, he suspects pancreatic insufficiency as possible cause due to low stool pancreatic elastase and ordered an MRCP MRCP unable to be obtained due to patient restlessness Dr. South consulted Dr. Guerrero (help appreciated) for evaluation of possible chronic pancreatitis and possible EUS work up * Per Dr. Guerrero, pursue EUS as an outpatient for definitive diagnosis of chronic pancreatitis * Pancreatic enzymes were started with meals and Aldactone increased to 50 mg PO BID by GI team Pancreaze increased by Dr. South on 08/03/17 Alcohol abuse/alcohol intoxication/alcohol withdrawal Elevated serum alcohol on admission 292 Seizure and aspiration precautions Ativan 1mg q4h prn for agitation Thiamine 100 mg daily Folic acid 1 mg daily Psych consult, Dr. Man, help appreciated Ascites and hepatic encephalopathy 08/07: Liver function slightly worst today. AST 198. Patient in no acute distress. GI on board. 08/06: GI Dr. South on board -> Liver function is declining: TBILI 2.7, PT 26.6, AST 149, ALT 51. Will repeat vitamin K for three days. Consult GI, Dr South CT abd/pelvis shows small to moderate ascites Paracentesis done today 07/19/17 with 2.1 L straw colored fluid removed. * peritoneal fluid no growth * Fluid WBC: 147, RBC: 216, neut: 41, lymph: 43, monocyte/macrophage: 15 Albumin 12.5 gm x 2 given on 07/21/17 ammonia level: increased to 64 on 07/22/17 Continue xifaxan 550mg po BID,not on lactulose due to diarrhea started Lasix 40 mg po daily and Aldactone 25mg po BID on 07/25/17 Repeat paracentesis 08/04/17--4 Liters removed. Replenished with albumin 12.5 gm x2 doses Hyponatremia 08/07: Dr. Middleton, Nephro on board -> not clear if hyponatremia is due to cirrhosis or hypovolemia from diuretics. Trial of holding John and lasix performed. f/u repeat labs. 08/06: Na 122L; likely due to third spacing; Nephro consult Dr. Middleton, f/u recs Hypokalemia and Hypomagnesemia 08/07: resolved 08/06: K 4.6 / Mg 1.7 - improved; continue to monitor ollow levels with supplementation Anemia 08/07: patient stable. Hemeonc on board. Likely 2/2 bone marrow suppresion from ETOH 08/06: CBC not drawn; will followup am reading patient transfused 1 u PRBC on 07/20/17 Heme/onc consulted, Dr. Tran help appreciated stool occult blood negative Tobacco use disorder Nicotine patch S/P Urinary Retention patient urinating in urinal today monitor urine output Elevated INR trending down Vitamin K 5mg po daily for a total of 5 days (day 1 on 07/26, last dose to be given on 07/30) continue to monitor Prophylactic Measure/supportive care Pepcid 20mg po BID SCDs, Lovenox 40mg sc daily Simethicone 80mg po BID PT/OT Disposition: Patient is an unsafe discharge at this time. He is still unsteady on his feet and incontinent of stools. There is no family support. Case DW Dr. Tomy Abdi, PGY2 <Ruth Huitron - Last Filed: 08/07/17 22:37> Objective - Vital Signs/Intake and Output Vital Signs (last 24 hours): Temp Pulse Resp BP Pulse Ox 98.3 F 112 H 20 103/68 95 08/07/17 15:00 08/07/17 16:00 08/07/17 15:00 08/07/17 15:00 08/07/17 15:00 Intake and Output: 08/07/17 08/08/17 18:59 06:59 Intake Total 1020 Balance 1020 - Medications Medications: Current Medications Cholestyramine Resin (Questran) 4 gm PO BIDPC [facility] Last Admin: 08/07/17 18:21 Dose: 4 gm Folic Acid (Folic Acid) 1 mg PO DAILY [facility] Last Admin: 08/07/17 09:45 Dose: 1 mg Furosemide (Lasix) 40 mg PO DAILY [facility] Last Admin: 08/07/17 09:56 Dose: Not Given Loperamide HCl (Imodium) 2 mg PO QID PRN PRN Reason: Diarrhea Last Admin: 08/07/17 09:45 Dose: 2 mg Magnesium Oxide (Mag-Ox) 800 mg PO TID [facility] Last Admin: 08/01/17 14:47 Dose: Not Given Nicotine (Nicoderm Cq) 1 patch TD DAILY [facility] Last Admin: 08/07/17 09:56 Dose: 1 patch Pantoprazole Sodium (Protonix Ec Tab) 40 mg PO DAILY [facility] Last Admin: 08/07/17 09:45 Dose: 40 mg Petrolatum (Desitin Original) 1 gm TOP TID [facility] Last Admin: 08/07/17 18:24 Dose: 1 applic Phytonadione (Vitamin K Inj) 10 mg SC QD5 [facility] Stop: 08/08/17 17:01 Simethicone (Mylicon Chew Tab) 80 mg PO TID [facility] Last Admin: 08/07/17 18:21 Dose: 80 mg Spironolactone (Aldactone) 50 mg PO BID [facility] Last Admin: 08/07/17 09:45 Dose: 50 mg Thiamine HCl (Vitamin B1 Tab) 100 mg PO BID [facility] Last Admin: 08/07/17 18:21 Dose: 100 mg - Labs Labs: 08/07/17 12:06 08/07/17 12:06 PT 21.8 SECONDS (9.7-12.2) H 08/07/17 12:06 INR 1.9 08/07/17 12:06 APTT 34 SECONDS (21-34) 07/18/17 13:52 Attending/Attestation - Attestation I have personally seen and examined this patient.: Yes I have fully participated in the care of the patient.: Yes I have reviewed all pertinent clinical information, including history, physical exam and plan: Yes Notes (Text): Seen and examined C/O diarrhea. d/w RN patient was able to walk to toilet himself. Rn is not sure how many BM. Pt states that he had diarrhea His sodium is low. D/W Dr Smiley . recommended to hold lasix and aldactone and give NS 500ml we will follow sodium level d/w the resident I agree with the assessment and the plan 08/07/17 22:35
--- NOTE | 2017-08-08 07:35 | CP.PCM.PN ---
<Tima Beth S - Last Filed: 08/08/17 17:10> Subjective - Date & Time of Evaluation Date of Evaluation: 08/08/17 Time of Evaluation: 07:50 - Subjective Subjective: Medicine progress note for Dr. Evans Patient seen and examined at bedside. Patient reporting 2 bowel movements in the middle of the night and 3 this morning. Patient is able to make it to the bathroom in time now which is an improvement from before. Right sided abdominal pain remains the same. Patient tolerating diet and has no other acute complaints at this time. Objective - Vital Signs/Intake and Output Vital Signs (last 24 hours): Temp Pulse Resp BP Pulse Ox 98.8 F 99 H 20 102/67 98 08/07/17 23:55 08/07/17 23:55 08/07/17 23:55 08/07/17 23:55 08/07/17 23:55 Intake and Output: 08/08/17 08/08/17 06:59 18:59 Intake Total 700 Balance 700 - Medications Medications: Current Medications Cholestyramine Resin (Questran) 4 gm PO BIDPC [facility] Last Admin: 08/07/17 18:21 Dose: 4 gm Folic Acid (Folic Acid) 1 mg PO DAILY [facility] Last Admin: 08/07/17 09:45 Dose: 1 mg Furosemide (Lasix) 40 mg PO DAILY [facility] Last Admin: 08/07/17 09:56 Dose: Not Given Loperamide HCl (Imodium) 2 mg PO QID PRN PRN Reason: Diarrhea Last Admin: 08/07/17 09:45 Dose: 2 mg Magnesium Oxide (Mag-Ox) 800 mg PO TID [facility] Last Admin: 08/01/17 14:47 Dose: Not Given Nicotine (Nicoderm Cq) 1 patch TD DAILY [facility] Last Admin: 08/07/17 09:56 Dose: 1 patch Pantoprazole Sodium (Protonix Ec Tab) 40 mg PO DAILY [facility] Last Admin: 08/07/17 09:45 Dose: 40 mg Petrolatum (Desitin Original) 1 gm TOP TID [facility] Last Admin: 08/07/17 18:24 Dose: 1 applic Phytonadione (Vitamin K Inj) 10 mg SC QD5 [facility] Stop: 08/08/17 17:01 Simethicone (Mylicon Chew Tab) 80 mg PO TID [facility] Last Admin: 08/07/17 18:21 Dose: 80 mg Spironolactone (Aldactone) 50 mg PO BID [facility] Last Admin: 08/07/17 09:45 Dose: 50 mg Thiamine HCl (Vitamin B1 Tab) 100 mg PO BID [facility] Last Admin: 08/07/17 18:21 Dose: 100 mg - Labs Labs: 08/07/17 12:06 08/07/17 12:06 PT 21.8 SECONDS (9.7-12.2) H 08/07/17 12:06 INR 1.9 08/07/17 12:06 APTT 34 SECONDS (21-34) 07/18/17 13:52 - Additional Findings Additional findings: - Constitutional Appears: No Acute Distress - Head Exam Head Exam: ATRAUMATIC, NORMOCEPHALIC - Eye Exam Eye Exam: EOMI, Normal appearance - ENT Exam ENT Exam: Mucous Membranes Moist - Respiratory Exam Respiratory Exam: Clear to Ausculation Bilateral. absent: Rales, Rhonchi, Wheezes - Cardiovascular Exam Cardiovascular Exam: REGULAR RHYTHM, +S1, +S2 - GI/Abdominal Exam GI & Abdominal Exam: Distended (mild), Soft, Tenderness (mild right sided upper and lower quadrants), Normal Bowel Sounds - Extremities Exam Extremities Exam: absent: Pedal Edema, Tenderness - Neurological Exam Neurological Exam: Alert, Awake - Psychiatric Exam Psychiatric exam: Normal Affect, Normal Mood - Skin Skin Exam: Dry, Warm Assessment and Plan - Assessment and Plan (Free Text) Plan: Colitis and Diarrhea 08/07: diarrhea persists, however patient may not be a great historian (possible 2/2 ETOH dementia). 08/06: persistent 2 [address] am[address] GI Dr. South on board -> Will increase pancreatic enzymes to four capsules with each meal. No leukocytosis, afebrile giardia negative, stool ova and parasite negative, stool culture negative blood culture negative negative HIV and hep panel fecal fat study: normal c dif neg x 3 Desitin cream ordered for gluteal and sacral excoriations due to the uncontrolled loose stools Imaging: CT abd/pelvis with IV contrast 07/17: Significant bowel wall thickening involving the colon, appearance most consistent with acute colitis, cannot exclude underlying neoplasm. Small to moderate ascites. Fatty infiltration of the liver. Heterogeneous appearance to hepatic parenchyma. Some of appearance may be due to transient hepatic attenuation differences, concern for underlying lesion. Meds: Cipro 400 IV daily Flagyl 500 IV Q8 Endoscopy (07/28): small hiatal hernia, patchy mild inflammation in gastric antrum biopsies, scalloped mucosa found in duodenum, suspicious for celiac disease- biopsied Colonoscopy (07/28): internal hemorrhoids, mucosal nodule in the sigmoid colon, in transverse colon and in the ascending colon- biopsied Per Dr. South, he suspects pancreatic insufficiency as possible cause due to low stool pancreatic elastase and ordered an MRCP MRCP unable to be obtained due to patient restlessness Dr. South consulted Dr. Guerrero (help appreciated) for evaluation of possible chronic pancreatitis and possible EUS work up * Per Dr. Guerrero, pursue EUS as an outpatient for definitive diagnosis of chronic pancreatitis * Pancreatic enzymes were started with meals and Aldactone increased to 50 mg PO BID by GI team [place] [address] units TID with meals Alcohol abuse/alcohol intoxication/alcohol withdrawal Elevated serum alcohol on admission 292 Seizure and aspiration precautions Ativan 1mg q4h prn for agitation Thiamine 100 mg daily Folic acid 1 mg daily Psych consult, Dr. Man, help appreciated Ascites and hepatic encephalopathy 08/07: Liver function slightly worst today. AST 198. Patient in no acute distress. GI on board. 08/06: GI Dr. South on board -> Liver function is declining: TBILI 2.7, PT 26.6, AST 149, ALT 51. Will repeat vitamin K for three days. Consult GI, Dr South CT abd/pelvis shows small to moderate ascites Paracentesis done today 07/19/17 with 2.1 L straw colored fluid removed. * peritoneal fluid no growth * Fluid WBC: 147, RBC: 216, neut: 41, lymph: 43, monocyte/macrophage: 15 Albumin 12.5 gm x 2 given on 07/21/17 ammonia level: increased to 64 on 07/22/17 Continue xifaxan 550mg po BID,not on lactulose due to diarrhea started Lasix 40 mg po daily and Aldactone 25mg po BID on 07/25/17 Repeat paracentesis 08/04/17--4 Liters removed. Replenished with albumin 12.5 gm x2 doses Hyponatremia Nephrology consult Dr. Middleton, help appreciated Unclear if hyponatremia is due to cirrhosis or hypovolemia from diuretics. Trial of holding John and lasix performed. f/u repeat labs, though patient refusing so far. Hypokalemia and Hypomagnesemia f/u and replete, though patient refusing morning labs today Anemia patient transfused 1 u PRBC on 07/20/17 Heme/onc consulted, Dr. Tran help appreciated stool occult blood negative Likely due from bone marrow suppression due to alcohol Tobacco use disorder Nicotine patch S/P Urinary Retention monitor urine output Elevated INR Vitamin K 5mg po daily for a total of 5 days (day 1 on 07/26, last dose to be given on 07/30) continue to monitor Prophylactic Measure/supportive care Pepcid 20mg po BID SCDs, Lovenox 40mg sc daily Simethicone 80mg po BID PT/OT Imodium prn Disposition: Patient is still not a safe discharge at this time. Patient was witnessed walking from the bathroom to his bed slowly. Waiting on hopeful improvement in diarrhea as electrolytes have been needing to be repleted almost daily. No family support. Case DW Dr. Cristina Beth PGY-1 <Js Evans H - Last Filed: 08/08/17 18:06> Objective - Vital Signs/Intake and Output Vital Signs (last 24 hours): Temp Pulse Resp BP Pulse Ox 98.3 F 108 H 20 108/74 98 08/08/17 16:00 08/08/17 16:00 08/08/17 16:00 08/08/17 16:00 08/08/17 16:00 Intake and Output: 08/08/17 08/08/17 06:59 18:59 Intake Total 700 400 Balance 700 400 - Medications Medications: Current Medications Cholestyramine Resin (Questran) 4 gm PO BIDPC [facility] Last Admin: 08/08/17 08:09 Dose: 4 gm Folic Acid (Folic Acid) 1 mg PO DAILY [facility] Last Admin: 08/08/17 09:58 Dose: 1 mg Furosemide (Lasix) 40 mg PO DAILY [facility] Last Admin: 08/07/17 09:56 Dose: Not Given Sodium Chloride (Sodium Chloride 0.9%) 1,000 mls @ 100 mls/hr IV .Q10H [facility] Loperamide HCl (Imodium) 2 mg PO QID PRN PRN Reason: Diarrhea Last Admin: 08/08/17 10:01 Dose: 2 mg Magnesium Oxide (Mag-Ox) 800 mg PO TID [facility] Last Admin: 08/01/17 14:47 Dose: Not Given Nicotine (Nicoderm Cq) 1 patch TD DAILY [facility] Last Admin: 08/08/17 10:01 Dose: 1 patch Pantoprazole Sodium (Protonix Ec Tab) 40 mg PO DAILY [facility] Last Admin: 08/08/17 09:58 Dose: 40 mg Petrolatum (Desitin Original) 1 gm TOP TID [facility] Last Admin: 08/08/17 14:04 Dose: 1 applic Simethicone (Mylicon Chew Tab) 80 mg PO TID [facility] Last Admin: 08/08/17 14:04 Dose: 80 mg Spironolactone (Aldactone) 50 mg PO BID [facility] Last Admin: 08/07/17 09:45 Dose: 50 mg Thiamine HCl (Vitamin B1 Tab) 100 mg PO BID [facility] Last Admin: 08/08/17 09:58 Dose: 100 mg - Labs Labs: 08/07/17 12:06 08/07/17 12:06 PT 21.8 SECONDS (9.7-12.2) H 08/07/17 12:06 INR 1.9 08/07/17 12:06 APTT 34 SECONDS (21-34) 07/18/17 13:52 Attending/Attestation - Attestation I have personally seen and examined this patient.: Yes I have fully participated in the care of the patient.: Yes I have reviewed all pertinent clinical information, including history, physical exam and plan: Yes Notes (Text): 08/08/17 18:06 Medical attending: Patient was seen and examined, I reviewed and agree with the above note by medical lab technologist. This is a patient with extensive alcohol drinking history. When we saw him today he reported that his abdominal pain was subsided however he still having some diarrhea. He said that earlier in the morning the stool seemed more form to him but later on during the day they seem watery in nature. He is being placed on pancreatic enzymes to be used every time he eats. He remains on Cipro and Flagyl at this time With regards to his hyponatremia will continue to monitor lab work, his Lasix and Aldactone are being held at the moment I was able to observe him walking as well as in the room he is able to do so without assistance however slowly. Thank you very much, Js Evans
[2017-08-08] MEDS: LIPASE/PROTEASE/AMYLASE 4,200 U ECC PO SCH ×3 (08:08→18:55)
[2017-08-08] MEDS: Cholestyramine 4 gm/Pkt UD PO SCH ×2 (08:09→18:54)
[2017-08-08] MEDS: Pantoprazole 40 mg EC Tab PO SCH (09:58)
[2017-08-08] MEDS: Simethicone 80 mg Chewtab PO SCH ×3 (09:58→18:54)
[2017-08-08] MEDS: Zinc Oxide Topical 30 gm Tube TOP SCH ×3 (09:59→18:55)
[2017-08-08] MEDS: Sodium Chloride 0.9% 1,000 ML IV SCH (16:20)
--- NOTE | 2017-08-08 18:49 | CP.PCM.PN ---
Subjective - Date & Time of Evaluation Date of Evaluation: 08/08/17 Time of Evaluation: 18:44 - Subjective Subjective: Follow up Nephrology Consultation Note Assessment: Stable Hyponatremia likely hypovolemic, due to diuretics and ongoing GI volume loss due to enterocolitis Cirrhosis, smoker and Etoh abuse Plan agree to hold diuretics. may resume aldactone if allowed by BP will start NS @ 100 ml/hr supplement electrolytes as needed avoid correction in serum Na >6-8 meq/24 hr. no need for hypertonic saline at this time Glycemic control supplement electrolytes as needed Further work up for as per primary team Thanks for allowing me to participate in care of your patient. Will follow patient with you. Please call if any Qs Dr Ciro Middleton Office: [phone] Subjective: Noted events overnight. Patients feels sick Denies chest pain, palpitation, shortness of breath, leg swelling. All other negative except as c/o abdomen distension, multiple episodes of diarrhoea and dcreased oral intake Physical Examination: General Appearance: Comfortable, in no acute respiratory distress, co-operative . ill appearing Vitals reviewed and noted as below Head; Atraumatic, normocephalic ENT: no ulcers no thrush. Tongue is midline. Oropharynx: no rash or ulcers. EYES: Pupils are equal, round and reactive to light accommodation. Eye muscles and extraocular movement intact. Sclera is anicteric. Neck; supple no lymphadenopathy, no thyromegaly or bruit Lungs: Normal respiratory rate/effort. Breath sounds bilateral equal and clear Heart: Increased rate. s1s2 normal. No rub or gallop. Extremities: no edema. No varicose veins Neurological: Patient is alert, awake and oriented to person, place and time. No focal deficit. Strength bilateral appropriate and equal Skin: Warm and dry. Normal turgor. No rash. Palpitation: Normal elasticity for age Abdomen: Abdomen is soft. Bowel sounds +. There is mild abdominal tenderness, no guarding/rigidity no organomegaly. has ascites Psych: normal insight and normal affect/mood MSK: no joint tenderness or swelling. Digits and nails normal, no deformity : kidney or bladder not palpable Labs/imaging reviewed. Past medical history, past surgical history, family history, social history, allergy reviewed and noted as below Family hx: no hx of CKD. Rest non-contributory Imaging: enterocolitis and atrophic pancreas urine Na 43 and urine osmol 401 Objective - Vital Signs/Intake and Output Vital Signs (last 24 hours): Temp Pulse Resp BP Pulse Ox 98.3 F 108 H 20 108/74 98 08/08/17 16:00 08/08/17 16:00 08/08/17 16:00 08/08/17 16:00 08/08/17 16:00 Intake and Output: 08/08/17 08/08/17 06:59 18:59 Intake Total 700 400 Balance 700 400 - Medications Medications: Current Medications Cholestyramine Resin (Questran) 4 gm PO BIDPC [facility] Last Admin: 08/08/17 08:09 Dose: 4 gm Folic Acid (Folic Acid) 1 mg PO DAILY [facility] Last Admin: 08/08/17 09:58 Dose: 1 mg Furosemide (Lasix) 40 mg PO DAILY [facility] Last Admin: 08/07/17 09:56 Dose: Not Given Sodium Chloride (Sodium Chloride 0.9%) 1,000 mls @ 100 mls/hr IV .Q10H [facility] Loperamide HCl (Imodium) 2 mg PO QID PRN PRN Reason: Diarrhea Last Admin: 08/08/17 10:01 Dose: 2 mg Magnesium Oxide (Mag-Ox) 800 mg PO TID [facility] Last Admin: 08/01/17 14:47 Dose: Not Given Nicotine (Nicoderm Cq) 1 patch TD DAILY [facility] Last Admin: 08/08/17 10:01 Dose: 1 patch Pantoprazole Sodium (Protonix Ec Tab) 40 mg PO DAILY [facility] Last Admin: 08/08/17 09:58 Dose: 40 mg Petrolatum (Desitin Original) 1 gm TOP TID [facility] Last Admin: 08/08/17 14:04 Dose: 1 applic Simethicone (Mylicon Chew Tab) 80 mg PO TID [facility] Last Admin: 08/08/17 14:04 Dose: 80 mg Spironolactone (Aldactone) 50 mg PO BID [facility] Last Admin: 08/07/17 09:45 Dose: 50 mg Thiamine HCl (Vitamin B1 Tab) 100 mg PO BID [facility] Last Admin: 08/08/17 09:58 Dose: 100 mg - Labs Labs: 08/07/17 12:06 08/07/17 12:06 PT 21.8 SECONDS (9.7-12.2) H 08/07/17 12:06 INR 1.9 08/07/17 12:06 APTT 34 SECONDS (21-34) 07/18/17 13:52
[2017-08-09] MEDS: Sodium Chloride 0.9% 1,000 ML IV SCH (02:15)
[2017-08-09 08:07] LABS: BASO # 0.1 K/uL (0.0-0.2); BASO % 0.9 % (0.0-2.0); EOS # 0.1 K/uL (0.0-0.7); LYMPH # 1.9 K/uL (1.0-4.3); LYMPH % 18.4 % (20.0-40.0); MEAN CELL VOLUME 88.3 fL (80.0-94.0); MEAN CORPUSCULAR HEMOGLOBIN 29.9 pg (27.0-31.0); MEAN CORPUSCULAR HGB CONC 33.9 g/dL (33.0-37.0); MEAN PLATELET VOLUME 8.7 fL (7.2-11.7); MONO # 0.9 K/uL (0.0-0.8); MONO % 8.4 % (0.0-10.0); NEUT # 7.3 K/uL (1.8-7.0); NEUT % 71.3 % (50.0-75.0); RBC 2.69 Mil/uL (4.40-5.90); WHITE BLOOD COUNT 10.2 K/uL (4.8-10.8)
[2017-08-09 08:26] LABS: ALB/GLOB RATIO 0.7 (1.0-2.1); ALBUMIN 2.3 g/dL (3.5-5.0); ALT/SGPT 60 U/L (21-72); AST/SGOT 159 U/L (17-59); BLOOD UREA NITROGEN 3 mg/dL (9-20); CALCIUM 7.5 mg/dl (8.6-10.4); GFR AFRICAN-AMERICAN > 60; GFR NON-AFRICAN AMERICAN > 60; MAGNESIUM 1.2 mg/dL (1.6-2.3)
[2017-08-09] MEDS ORDERED: Tolvaptan 15 MG TAB PO ONE (09:41)
[2017-08-09] MEDS: LIPASE/PROTEASE/AMYLASE 4,200 U ECC PO SCH ×3 (10:25→17:30)
[2017-08-09] MEDS: Magnesium Sulfate 1 gm in D5W 1 GM/100 ML BAG IVPB SCH ×4 (10:25→15:13)
[2017-08-09] MEDS: Cholestyramine 4 gm/Pkt UD PO SCH ×2 (10:26→22:20)
[2017-08-09] MEDS: Zinc Oxide Topical 30 gm Tube TOP SCH ×3 (10:27→17:32)
[2017-08-09] MEDS: Pantoprazole 40 mg EC Tab PO SCH (10:27)
[2017-08-09] MEDS: Simethicone 80 mg Chewtab PO SCH ×3 (10:27→17:30)
--- NOTE | 2017-08-09 10:29 | CP.PCM.PN ---
<Tima eBth - Last Filed: 08/09/17 17:20> Subjective - Date & Time of Evaluation Date of Evaluation: 08/09/17 Time of Evaluation: 08:10 - Subjective Subjective: Medicine progress note for Dr. Evans Patient seen and examined at bedside. Patient reports ongoing bouts of diarrhea. He stated that he had 9 episodes last night. Patient was later seen on rounds and was tired and sleepy. Objective - Vital Signs/Intake and Output Vital Signs (last 24 hours): Temp Pulse Resp BP Pulse Ox 98.3 F 95 H 20 111/78 97 08/09/17 07:40 08/09/17 08:00 08/09/17 07:40 08/09/17 07:40 08/09/17 07:40 Intake and Output: 08/09/17 08/09/17 06:59 18:59 Intake Total 1500 Balance 1500 - Medications Medications: Current Medications Cholestyramine Resin (Questran) 4 gm PO BIDPC [facility] Last Admin: 08/08/17 18:54 Dose: 4 gm Folic Acid (Folic Acid) 1 mg PO DAILY [facility] Last Admin: 08/08/17 09:58 Dose: 1 mg Furosemide (Lasix) 40 mg PO DAILY [facility] Last Admin: 08/07/17 09:56 Dose: Not Given Sodium Chloride (Sodium Chloride 0.9%) 1,000 mls @ 100 mls/hr IV .Q10H [facility] Last Admin: 08/09/17 02:15 Dose: Not Given Magnesium Sulfate/Dextrose (Magnesium Sulfate 1 Gm/100 Ml D5w) 1 gm in 100 mls @ 300 mls/hr IVPB Q30M [facility] Stop: 08/09/17 10:34 Magnesium Sulfate/Dextrose (Magnesium Sulfate 1 Gm/100 Ml D5w) 1 gm in 100 mls @ 300 mls/hr IVPB Q30M [facility] Stop: 08/09/17 10:49 Loperamide HCl (Imodium) 2 mg PO QID PRN PRN Reason: Diarrhea Last Admin: 08/08/17 10:01 Dose: 2 mg Magnesium Oxide (Mag-Ox) 800 mg PO TID [facility] Last Admin: 08/01/17 14:47 Dose: Not Given Nicotine (Nicoderm Cq) 1 patch TD DAILY [facility] Last Admin: 08/08/17 10:01 Dose: 1 patch Pantoprazole Sodium (Protonix Ec Tab) 40 mg PO DAILY [facility] Last Admin: 08/08/17 09:58 Dose: 40 mg Petrolatum (Desitin Original) 1 gm TOP TID [facility] Last Admin: 08/08/17 18:55 Dose: 1 applic Simethicone (Mylicon Chew Tab) 80 mg PO TID [facility] Last Admin: 08/08/17 18:54 Dose: 80 mg Spironolactone (Aldactone) 50 mg PO BID [facility] Last Admin: 08/07/17 09:45 Dose: 50 mg Thiamine HCl (Vitamin B1 Tab) 100 mg PO BID [facility] Last Admin: 08/08/17 18:54 Dose: 100 mg - Labs Labs: 08/09/17 07:54 08/09/17 07:54 PT 21.8 SECONDS (9.7-12.2) H 08/07/17 12:06 INR 1.9 08/07/17 12:06 APTT 34 SECONDS (21-34) 07/18/17 13:52 - Additional Findings Additional findings: - Constitutional Appears: No Acute Distress - Head Exam Head Exam: ATRAUMATIC, NORMOCEPHALIC - Eye Exam Eye Exam: EOMI, Normal appearance - ENT Exam ENT Exam: Mucous Membranes Moist - Respiratory Exam Respiratory Exam: Clear to Ausculation Bilateral. absent: Rales, Rhonchi, Wheezes - Cardiovascular Exam Cardiovascular Exam: REGULAR RHYTHM, +S1, +S2 - GI/Abdominal Exam GI & Abdominal Exam: Distended (mild with fluid shift), Soft, Tenderness (mild right sided upper and lower quadrants), Normal Bowel Sounds - Extremities Exam Extremities Exam: absent: Pedal Edema, Tenderness - Neurological Exam Neurological Exam: Alert, Awake - Psychiatric Exam Psychiatric exam: Normal Affect, Normal Mood - Skin Skin Exam: Dry, Warm Assessment and Plan - Assessment and Plan (Free Text) Plan: Colitis and Diarrhea 08/07: diarrhea persists, however patient may not be a great historian (possible 2/2 ETOH dementia). 08/06: persistent [address] am[address] GI Dr. South on board -> Will increase pancreatic enzymes to four capsules with each meal. No leukocytosis, afebrile giardia negative, stool ova and parasite negative, stool culture negative blood culture negative negative HIV and hep panel fecal fat study: normal c dif neg x 3 Desitin cream ordered for gluteal and sacral excoriations due to the uncontrolled loose stools Imaging: CT abd/pelvis with IV contrast 07/17: Significant bowel wall thickening involving the colon, appearance most consistent with acute colitis, cannot exclude underlying neoplasm. Small to moderate ascites. Fatty infiltration of the liver. Heterogeneous appearance to hepatic parenchyma. Some of appearance may be due to transient hepatic attenuation differences, concern for underlying lesion. Meds: Cipro 400 IV daily--discontinued Flagyl 500 IV Q8--discontinued Endoscopy (07/28): small hiatal hernia, patchy mild inflammation in gastric antrum biopsies, scalloped mucosa found in duodenum, suspicious for celiac disease- biopsied Colonoscopy (07/28): internal hemorrhoids, mucosal nodule in the sigmoid colon, in transverse colon and in the ascending colon- biopsied Per Dr. South, he suspects pancreatic insufficiency as possible cause due to low stool pancreatic elastase and ordered an MRCP MRCP unable to be obtained due to patient restlessness Dr. South consulted Dr. Guerrero (help appreciated) for evaluation of possible chronic pancreatitis and possible EUS work up * Per Dr. Guerrero, pursue EUS as an outpatient for definitive diagnosis of chronic pancreatitis * Pancreatic enzymes were started with meals and Aldactone increased to 50 mg PO BID by GI team [place] [id number] units TID with meals Alcohol abuse/alcohol intoxication/alcohol withdrawal Elevated serum alcohol on admission 292 Seizure and aspiration precautions Ativan 1mg q4h prn for agitation Thiamine 100 mg daily Folic acid 1 mg daily Psych consult, Dr. Man, help appreciated Ascites and hepatic encephalopathy 08/07: Liver function slightly worst today. AST 198. Patient in no acute distress. GI on board. 08/06: GI Dr. South on board -> Liver function is declining: TBILI 2.7, PT 26.6, AST 149, ALT 51. Will repeat vitamin K for three days. Consult GI, Dr South CT abd/pelvis shows small to moderate ascites Paracentesis done today 07/19/17 with 2.1 L straw colored fluid removed. * peritoneal fluid no growth * Fluid WBC: 147, RBC: 216, neut: 41, lymph: 43, monocyte/macrophage: 15 Repeat paracentesis 08/04/17--4 Liters removed. Replenished with albumin 12.5 gm x2 doses Ammonia level on 08/09: 57--Xifaximin 550 mg PO BID restarted Hyponatremia Nephrology consult Dr. Middleton, help appreciated Unclear if hyponatremia is due to cirrhosis or hypovolemia from diuretics. Trial of holding John and lasix performed. f/u repeat labs, though patient refusing so far. Patient previously on trial of NS 100 cc/hr without improvement Given one dose of Tolvaptan on 08/09/17 Hypokalemia and Hypomagnesemia f/u and replete, though patient intermittently refuses labs Anemia patient transfused 1 u PRBC on 07/20/17 Heme/onc consulted, Dr. Tran help appreciated stool occult blood negative Likely due from bone marrow suppression due to alcohol Tobacco use disorder Nicotine patch S/P Urinary Retention monitor urine output Elevated INR Vitamin K 5mg po daily for a total of 5 days (day 1 on 07/26, last dose to be given on 07/30) continue to monitor Prophylactic Measure/supportive care Pepcid 20mg po BID SCDs, Lovenox 40mg sc daily Simethicone 80mg po BID PT/OT Imodium prn Disposition: Patient is still not a safe discharge at this time. Waiting on hopeful improvement in diarrhea as electrolytes have been needing to be repleted almost daily. No family support. Case DW Dr. Cristina Beth PGY-1 <Js Evans H - Last Filed: 08/09/17 18:30> Objective - Vital Signs/Intake and Output Vital Signs (last 24 hours): Temp Pulse Resp BP Pulse Ox 99.0 F 103 H 20 104/69 98 08/09/17 16:29 08/09/17 16:29 08/09/17 16:29 08/09/17 16:29 08/09/17 16:29 Intake and Output: 08/09/17 08/09/17 06:59 18:59 Intake Total 1500 Balance 1500 - Medications Medications: Current Medications Cholestyramine Resin (Questran) 4 gm PO BIDPC [facility] Last Admin: 08/09/17 10:26 Dose: 4 gm Folic Acid (Folic Acid) 1 mg PO DAILY [facility] Last Admin: 08/09/17 10:27 Dose: 1 mg Furosemide (Lasix) 40 mg PO DAILY [facility] Last Admin: 08/07/17 09:56 Dose: Not Given Sodium Chloride (Hypertonic Saline 3%) 400 mls @ 20 mls/hr IV .Q20H ONE Stop: 08/10/17 13:29 Loperamide HCl (Imodium) 2 mg PO QID PRN PRN Reason: Diarrhea Last Admin: 08/08/17 10:01 Dose: 2 mg Magnesium Oxide (Mag-Ox) 800 mg PO TID [facility] Last Admin: 08/01/17 14:47 Dose: Not Given Nicotine (Nicoderm Cq) 1 patch TD DAILY [facility] Last Admin: 08/09/17 10:31 Dose: 1 patch Pantoprazole Sodium (Protonix Ec Tab) 40 mg PO DAILY [facility] Last Admin: 08/09/17 10:27 Dose: 40 mg Petrolatum (Desitin Original) 1 gm TOP TID [facility] Last Admin: 08/09/17 17:32 Dose: 1 applic Rifaximin (Xifaxan) 550 mg PO BID [facility] Simethicone (Mylicon Chew Tab) 80 mg PO TID [facility] Last Admin: 08/09/17 17:30 Dose: 80 mg Sodium Chloride (Hypertonic Saline 3%) 400 ml IV ONCE ONE Stop: 08/09/17 10:31 Spironolactone (Aldactone) 50 mg PO BID [facility] Last Admin: 08/09/17 17:30 Dose: 50 mg Thiamine HCl (Vitamin B1 Tab) 100 mg PO BID [facility] Last Admin: 08/09/17 10:27 Dose: 100 mg - Labs Labs: 08/09/17 07:54 08/09/17 13:53 PT 21.8 SECONDS (9.7-12.2) H 08/07/17 12:06 INR 1.9 08/07/17 12:06 APTT 34 SECONDS (21-34) 07/18/17 13:52 Attending/Attestation - Attestation I have personally seen and examined this patient.: Yes I have fully participated in the care of the patient.: Yes I have reviewed all pertinent clinical information, including history, physical exam and plan: Yes Notes (Text): 08/09/17 18:30 Medical attending: Patient was seen and examined by me, reviewed the above note by certified medical records coder and agree Today when we came and examined the patient he was awake and verbal however he appeared confused today. He was not following commands like he was previous day. We checked additional lab work after we saw the patient in appears that he has elevated ammonia level. He did previously have an elevated ammonia level when he came in and at that time was placed on both lactulose as well as Xifaxan. Because of his ongoing diarrhea we didn't restart the lactulose but he will restart the Xifaxan at this time. And were to continue to monitor his mental status. Nephrology is attempting to address the hyponatremia with hypertonic saline as well as PO tolvaptam Thank you very much, Js Evans
[2017-08-09] MEDS ORDERED: Sodium Chloride 0.9% 1,000 ML IV SCH ×2 (10:30→17:15)
--- NOTE | 2017-08-09 12:36 | CP.PCM.PN ---
Subjective - Date & Time of Evaluation Date of Evaluation: 08/09/17 Time of Evaluation: 10:00 - Subjective Subjective: Follow up Nephrology Consultation Note Assessment: critical Hyponatremia likely hypovolemic, due to diuretics and ongoing GI volume loss due to enterocolitis Cirrhosis, smoker and Etoh abuse Lethargy less likely due to hyponatremia considering more or less stable Na over last 1 week Hypomagnesemia Plan agree to hold diuretics. may resume aldactone if allowed by BP d/c normal saline. supplement electrolytes as needed avoid correction in serum Na >6-8 meq/24 hr. will give hypertonic saline 100 mL over 1 hr then next 400 mL @ 20 ml/hr. plan to d/c it once serum Na 129. d/w floor RN Glycemic control supplement electrolytes as needed Further work up for AMS as per primary team Thanks for allowing me to participate in care of your patient. Will follow patient with you. Please call if any Qs. d/w team Dr Ciro Middleton Office: [phone] Subjective: Noted events overnight. Patients sleepy today. not able to provide much hx Physical Examination: General Appearance: Comfortable, in no acute respiratory distress, co-operative . ill appearing Vitals reviewed and noted as below Head; Atraumatic, normocephalic ENT: no ulcers no thrush. Tongue is midline. Oropharynx: no rash or ulcers. EYES: Pupils are equal, round and reactive to light accommodation. Eye muscles and extraocular movement intact. Sclera is anicteric. Neck; supple no lymphadenopathy, no thyromegaly or bruit Lungs: Normal respiratory rate/effort. Breath sounds bilateral equal and clear Heart: normal rate. s1s2 normal. No rub or gallop. Extremities: no edema. No varicose veins Neurological: Patient is arousable but intermittently sleepy Skin: Warm and dry. Normal turgor. No rash. Palpitation: Normal elasticity for age Abdomen: Abdomen is soft. Bowel sounds +. There is mild abdominal tenderness, no guarding/rigidity no organomegaly. has ascites Psych: unable MSK: no joint tenderness or swelling. Digits and nails normal, no deformity : kidney or bladder not palpable Labs/imaging reviewed. Past medical history, past surgical history, family history, social history, allergy reviewed and noted as below Family hx: no hx of CKD. Rest non-contributory Imaging: enterocolitis and atrophic pancreas urine Na 43 and urine osmol 401 Objective - Vital Signs/Intake and Output Vital Signs (last 24 hours): Temp Pulse Resp BP Pulse Ox 98.3 F 95 H 20 111/78 97 08/09/17 07:40 08/09/17 08:00 08/09/17 07:40 08/09/17 07:40 08/09/17 07:40 Intake and Output: 08/09/17 08/09/17 06:59 18:59 Intake Total 1500 Balance 1500 - Medications Medications: Current Medications Cholestyramine Resin (Questran) 4 gm PO BIDPC [facility] Last Admin: 08/09/17 10:26 Dose: 4 gm Folic Acid (Folic Acid) 1 mg PO DAILY [facility] Last Admin: 08/09/17 10:27 Dose: 1 mg Furosemide (Lasix) 40 mg PO DAILY [facility] Last Admin: 08/07/17 09:56 Dose: Not Given Loperamide HCl (Imodium) 2 mg PO QID PRN PRN Reason: Diarrhea Last Admin: 08/08/17 10:01 Dose: 2 mg Magnesium Oxide (Mag-Ox) 800 mg PO TID [facility] Last Admin: 08/01/17 14:47 Dose: Not Given Nicotine (Nicoderm Cq) 1 patch TD DAILY [facility] Last Admin: 08/09/17 10:31 Dose: 1 patch Pantoprazole Sodium (Protonix Ec Tab) 40 mg PO DAILY [facility] Last Admin: 08/09/17 10:27 Dose: 40 mg Petrolatum (Desitin Original) 1 gm TOP TID [facility] Last Admin: 08/09/17 10:27 Dose: 1 applic Simethicone (Mylicon Chew Tab) 80 mg PO TID [facility] Last Admin: 08/09/17 10:27 Dose: 80 mg Sodium Chloride (Hypertonic Saline 3%) 100 ml IV ONCE ONE Stop: 08/09/17 10:31 Sodium Chloride (Hypertonic Saline 3%) 400 ml IV ONCE ONE Stop: 08/09/17 10:31 Spironolactone (Aldactone) 50 mg PO BID [facility] Last Admin: 08/09/17 10:27 Dose: 50 mg Thiamine HCl (Vitamin B1 Tab) 100 mg PO BID [facility] Last Admin: 08/09/17 10:27 Dose: 100 mg - Labs Labs: 08/09/17 07:54 08/09/17 07:54 PT 21.8 SECONDS (9.7-12.2) H 08/07/17 12:06 INR 1.9 08/07/17 12:06 APTT 34 SECONDS (21-34) 07/18/17 13:52
[2017-08-09] MEDS ORDERED: Magnesium Sulfate 1 gm in D5W 1 GM/100 ML BAG IVPB SCH (14:00)
[2017-08-09] MEDS ORDERED: Tolvaptan 15 MG TAB PO STA (16:07)
[2017-08-10 02:52] LABS: MAGNESIUM 1.6 mg/dL (1.6-2.3)
--- NOTE | 2017-08-10 07:33 | CP.PCM.PN ---
<Tima Beth - Last Filed: 08/10/17 13:32> Subjective - Date & Time of Evaluation Date of Evaluation: 08/10/17 Time of Evaluation: 07:50 - Subjective Subjective: Medicine progress note for Dr. Evans Patient seen and examined at bedside. Patient states that he continues to have abdominal pain and diarrhea. He has stopped keeping track of the number after having 5 bowel movements. Patient feels sleepy and fatigued but has no other complaints at this time. Objective - Vital Signs/Intake and Output Vital Signs (last 24 hours): Temp Pulse Resp BP Pulse Ox 98.8 F 98 H 18 99/68 L 97 08/10/17 00:00 08/10/17 04:00 08/10/17 00:00 08/10/17 00:00 08/10/17 00:00 Intake and Output: 08/10/17 08/10/17 06:59 18:59 Intake Total 150 Output Total 900 Balance -750 - Medications Medications: Current Medications Cholestyramine Resin (Questran) 4 gm PO BIDPC [facility] Last Admin: 08/09/17 22:20 Dose: 4 gm Folic Acid (Folic Acid) 1 mg PO DAILY [facility] Last Admin: 08/09/17 10:27 Dose: 1 mg Furosemide (Lasix) 40 mg PO DAILY [facility] Last Admin: 08/07/17 09:56 Dose: Not Given Sodium Chloride (Hypertonic Saline 3%) 400 mls @ 20 mls/hr IV .Q20H ONE Stop: 08/10/17 13:29 Last Admin: 08/09/17 19:18 Dose: 20 mls/hr Loperamide HCl (Imodium) 2 mg PO QID PRN PRN Reason: Diarrhea Last Admin: 08/08/17 10:01 Dose: 2 mg Magnesium Oxide (Mag-Ox) 800 mg PO TID [facility] Last Admin: 08/01/17 14:47 Dose: Not Given Nicotine (Nicoderm Cq) 1 patch TD DAILY [facility] Last Admin: 08/09/17 10:31 Dose: 1 patch Pantoprazole Sodium (Protonix Ec Tab) 40 mg PO DAILY [facility] Last Admin: 08/09/17 10:27 Dose: 40 mg Petrolatum (Desitin Original) 1 gm TOP TID [facility] Last Admin: 08/09/17 17:32 Dose: 1 applic Rifaximin (Xifaxan) 550 mg PO BID [facility] Last Admin: 08/09/17 22:20 Dose: 550 mg Simethicone (Mylicon Chew Tab) 80 mg PO TID [facility] Last Admin: 08/09/17 17:30 Dose: 80 mg Spironolactone (Aldactone) 50 mg PO BID [facility] Last Admin: 08/09/17 17:30 Dose: 50 mg Thiamine HCl (Vitamin B1 Tab) 100 mg PO BID [facility] Last Admin: 08/09/17 22:20 Dose: 100 mg - Labs Labs: 08/09/17 07:54 08/10/17 02:35 PT 21.8 SECONDS (9.7-12.2) H 08/07/17 12:06 INR 1.9 08/07/17 12:06 APTT 34 SECONDS (21-34) 07/18/17 13:52 - Additional Findings Additional findings: - Constitutional Appears: No Acute Distress - Head Exam Head Exam: ATRAUMATIC, NORMOCEPHALIC - Eye Exam Eye Exam: EOMI, Normal appearance - ENT Exam ENT Exam: Mucous Membranes Moist - Respiratory Exam Respiratory Exam: Clear to Ausculation Bilateral. absent: Rales, Rhonchi, Wheezes - Cardiovascular Exam Cardiovascular Exam: REGULAR RHYTHM, +S1, +S2 - GI/Abdominal Exam GI & Abdominal Exam: Distended (fluid shift), Soft, Tenderness (diffuse but primarily on the right side), Normal Bowel Sounds - Extremities Exam Extremities Exam: absent: Pedal Edema, Tenderness - Neurological Exam Neurological Exam: Awake Additional Comments: Not oriented to place and time. - Psychiatric Exam Psychiatric exam: Normal Affect, Normal Mood - Skin Skin Exam: Dry, Warm Assessment and Plan - Assessment and Plan (Free Text) Plan: Colitis and Diarrhea 08/07: diarrhea persists, however patient may not be a great historian (possible 2/2 ETOH dementia). 08/06: persistent 2 episodes this am. GI Dr. South on board -> Will increase pancreatic enzymes to four capsules with each meal. No leukocytosis, afebrile giardia negative, stool ova and parasite negative, stool culture negative blood culture negative negative HIV and hep panel fecal fat study: normal c dif neg x 3 Desitin cream ordered for gluteal and sacral excoriations due to the uncontrolled loose stools Imaging: CT abd/pelvis with IV contrast 07/17: Significant bowel wall thickening involving the colon, appearance most consistent with acute colitis, cannot exclude underlying neoplasm. Small to moderate ascites. Fatty infiltration of the liver. Heterogeneous appearance to hepatic parenchyma. Some of appearance may be due to transient hepatic attenuation differences, concern for underlying lesion. Meds: Cipro 400 IV daily--discontinued Flagyl 500 IV Q8--discontinued Endoscopy (07/28): small hiatal hernia, patchy mild inflammation in gastric antrum biopsies, scalloped mucosa found in duodenum, suspicious for celiac disease- biopsied Colonoscopy (07/28): internal hemorrhoids, mucosal nodule in the sigmoid colon, in transverse colon and in the ascending colon- biopsied Per Dr. South, he suspects pancreatic insufficiency as possible cause due to low stool pancreatic elastase and ordered an MRCP MRCP unable to be obtained due to patient restlessness Dr. South consulted Dr. Guerrero (help appreciated) for evaluation of possible chronic pancreatitis and possible EUS work up * Per Dr. Guerrero, pursue EUS as an outpatient for definitive diagnosis of chronic pancreatitis * Pancreatic enzymes were started with meals and Aldactone increased to 50 mg PO BID by GI team [place] [address] units TID with meals Alcohol abuse/alcohol intoxication/alcohol withdrawal Elevated serum alcohol on admission 292 Seizure and aspiration precautions Ativan 1mg q4h prn for agitation Thiamine 100 mg daily Folic acid 1 mg daily Psych consult, Dr. Man, help appreciated Ascites and hepatic encephalopathy Consult GI, Dr South, help appreciated CT abd/pelvis shows small to moderate ascites Paracentesis done 07/19/17 with 2.1 L straw colored fluid removed. * peritoneal fluid no growth * Fluid WBC: 147, RBC: 216, neut: 41, lymph: 43, monocyte/macrophage: 15 Repeat paracentesis 08/04/17--4 Liters removed. Replenished with albumin 12.5 gm x2 doses Ammonia level on 08/09: 57--Xifaximin 550 mg PO BID restarted Lactulose 20 mg PO BID was added on 08/10 due to current mental status. Hyponatremia Nephrology consult Dr. Middleton, help appreciated Unclear if hyponatremia is due to cirrhosis or hypovolemia from diuretics. Trial of holding John and lasix performed. f/u repeat labs, though patient refusing so far. Patient previously on trial of NS 100 cc/hr without improvement Hypertonic saline solution on 08/09/17--corrected sodium to 130 Hypokalemia and Hypomagnesemia f/u and replete, though patient intermittently refuses labs Anemia patient transfused 1 u PRBC on 07/20/17 Heme/onc consulted, Dr. Tran help appreciated stool occult blood negative Likely due from bone marrow suppression due to alcohol Tobacco use disorder Nicotine patch S/P Urinary Retention monitor urine output Elevated INR Vitamin K 5mg po daily for a total of 5 days (day 1 on 07/26, last dose to be given on 07/30) continue to monitor Prophylactic Measure/supportive care Pepcid 20mg po BID SCDs, Lovenox 40mg sc daily Simethicone 80mg po BID PT/OT Imodium prn Disposition: Patient currently encephalopathic. Lactulose was added to the Xifaxin despite the side effect of diarrhea because it was felt that the benefits outweigh the risks. Case DW Dr. Cristina Beth PGY-1 <Js Evans H - Last Filed: 08/10/17 14:42> Objective - Vital Signs/Intake and Output Vital Signs (last 24 hours): Temp Pulse Resp BP Pulse Ox 99.1 F 107 H 20 100/68 97 08/10/17 07:45 08/10/17 08:00 08/10/17 07:45 08/10/17 10:39 08/10/17 07:45 Intake and Output: 08/10/17 08/10/17 06:59 18:59 Intake Total 150 Output Total 900 Balance -750 - Medications Medications: Current Medications [facility] Last Admin: 08/10/17 09:24 Dose: 4 gm Folic Acid (Folic Acid) 1 mg PO DAILY [facility] Last Admin: 08/10/17 09:23 Dose: 1 mg Furosemide (Lasix) 40 mg PO DAILY [facility] Last Admin: 08/10/17 10:39 Dose: 40 mg Lactulose (Enulose) 20 gm PO BID [facility] Loperamide HCl (Imodium) 2 mg PO QID PRN PRN Reason: Diarrhea Last Admin: 08/08/17 10:01 Dose: 2 mg Magnesium Oxide (Mag-Ox) 800 mg PO TID [facility] Last Admin: 08/01/17 14:47 Dose: Not Given Nicotine (Nicoderm Cq) 1 patch TD DAILY [facility] Last Admin: 08/10/17 09:22 Dose: 1 patch Pantoprazole Sodium (Protonix Ec Tab) 40 mg PO DAILY [facility] Last Admin: 08/10/17 09:22 Dose: 40 mg Petrolatum (Desitin Original) 1 gm TOP TID [facility] Last Admin: 08/10/17 14:08 Dose: 1 applic Rifaximin (Xifaxan) 550 mg PO BID [facility] Last Admin: 08/10/17 09:22 Dose: 550 mg Simethicone (Mylicon Chew Tab) 80 mg PO TID [facility] Last Admin: 08/10/17 14:08 Dose: 80 mg Spironolactone (Aldactone) 50 mg PO BID [facility] Last Admin: 08/10/17 09:23 Dose: 50 mg Thiamine HCl (Vitamin B1 Tab) 100 mg PO BID [facility] Last Admin: 08/10/17 09:22 Dose: 100 mg - Labs Labs: 08/10/17 08:08 08/10/17 08:24 PT 21.8 SECONDS (9.7-12.2) H 08/07/17 12:06 INR 1.9 08/07/17 12:06 APTT 34 SECONDS (21-34) 07/18/17 13:52 Attending/Attestation - Attestation I have personally seen and examined this patient.: Yes I have fully participated in the care of the patient.: Yes I have reviewed all pertinent clinical information, including history, physical exam and plan: Yes Notes (Text): 08/10/17 14:42 Medical attending: Patient was seen and examined by me, agrees the above note by medical stenographer. Patient status has declined substantially The patient was awake, however confused. He did not know person place and time. We had to have a doubler helper with us. He has been observed still walking around however less frequently than before. He needs assistance. Because of the ammonia levels the patient placed back on Xifaxan and lactulose. And will have to monitor his mental status. This being said he still having ongoing diarrhea Overall prognosis is very poor Thank you very much, Js Evans
[2017-08-10 08:24] LABS: BASO # 0.1 K/uL (0.0-0.2); BASO % 1.3 % (0.0-2.0); EOS % 0.5 % (0.0-4.0); HEMOGLOBIN 7.9 g/dL (12.0-18.0); LYMPH # 1.8 K/uL (1.0-4.3); LYMPH % 17.8 % (20.0-40.0); MEAN CELL VOLUME 88.8 fL (80.0-94.0); MEAN CORPUSCULAR HEMOGLOBIN 30.1 pg (27.0-31.0); MEAN CORPUSCULAR HGB CONC 33.9 g/dL (33.0-37.0); MEAN PLATELET VOLUME 9.1 fL (7.2-11.7); MONO # 0.7 K/uL (0.0-0.8); MONO % 7.2 % (0.0-10.0); NEUT # 7.3 K/uL (1.8-7.0); NEUT % 73.2 % (50.0-75.0); RBC 2.64 Mil/uL (4.40-5.90); RED CELL DISTRIBUTION WIDTH 18.1 % (11.5-14.5)
[2017-08-10 09:12] LABS: ALB/GLOB RATIO 0.7 (1.0-2.1); ALBUMIN 2.3 g/dL (3.5-5.0); ALT/SGPT 61 U/L (21-72); AST/SGOT 149 U/L (17-59); BLOOD UREA NITROGEN 4 mg/dL (9-20); CALCIUM 7.8 mg/dl (8.6-10.4); GFR AFRICAN-AMERICAN > 60; GFR NON-AFRICAN AMERICAN > 60
[2017-08-10] MEDS: Pantoprazole 40 mg EC Tab PO SCH (09:22)
[2017-08-10] MEDS: LIPASE/PROTEASE/AMYLASE 4,200 U ECC PO SCH ×3 (09:22→16:22)
[2017-08-10] MEDS: Simethicone 80 mg Chewtab PO SCH ×3 (09:23→18:36)
[2017-08-10] MEDS: Cholestyramine 4 gm/Pkt UD PO SCH ×2 (09:24→18:36)
[2017-08-10] MEDS: Zinc Oxide Topical 30 gm Tube TOP SCH ×3 (10:39→18:39)
--- NOTE | 2017-08-10 16:04 | CP.PCM.PN ---
Subjective - Date & Time of Evaluation Date of Evaluation: 08/10/17 Time of Evaluation: 16:01 - Subjective Subjective: Follow up Nephrology Consultation Note Assessment: critical Hyponatremia likely hypovolemic, due to diuretics and ongoing GI volume loss due to enterocolitis Cirrhosis, smoker and Etoh abuse Lethargy less likely due to hyponatremia considering more or less stable Na over last 1 week Hypomagnesemia Plan continue to hold diuretics. can resume aldactone if allowed by BP supplement electrolytes as needed avoid correction in serum Na >6-8 meq/24 hr. d/c hypertonic saline as serum Na 130 Glycemic control supplement electrolytes as needed repeat urine studies as urine Na/osmol Further work up as per primary team Thanks for allowing me to participate in care of your patient. Will follow patient with you. Please call if any Qs. Dr Ciro Middleton Office: [phone] Subjective: Noted events overnight. Patients irritable today. not able to provide much significant reliable hx Physical Examination: General Appearance: Comfortable, in no acute respiratory distress, co-operative . ill appearing Vitals reviewed and noted as below Head; Atraumatic, normocephalic ENT: no ulcers no thrush. Tongue is midline. Oropharynx: no rash or ulcers. EYES: Pupils are equal, round and reactive to light accommodation. Eye muscles and extraocular movement intact. Sclera is anicteric. Neck; supple no lymphadenopathy, no thyromegaly or bruit Lungs: Normal respiratory rate/effort. Breath sounds bilateral equal and clear Heart: normal rate. s1s2 normal. No rub or gallop. Extremities: no edema. No varicose veins Neurological: Patient is awake but irritable Skin: Warm and dry. Normal turgor. No rash. Palpitation: Normal elasticity for age Abdomen: Abdomen is soft. Bowel sounds +. There is mild abdominal tenderness, no guarding/rigidity no organomegaly. has ascites Psych: unable MSK: no joint tenderness or swelling. Digits and nails normal, no deformity : kidney or bladder not palpable Labs/imaging reviewed. Past medical history, past surgical history, family history, social history, allergy reviewed and noted as below Family hx: no hx of CKD. Rest non-contributory Imaging: enterocolitis and atrophic pancreas urine Na 43 and urine osmol 401 Objective - Vital Signs/Intake and Output Vital Signs (last 24 hours): Temp Pulse Resp BP Pulse Ox 99.1 F 103 H 20 100/68 97 08/10/17 07:45 08/10/17 15:53 08/10/17 07:45 08/10/17 10:39 08/10/17 07:45 Intake and Output: 08/10/17 08/10/17 06:59 18:59 Intake Total 150 300 Output Total 900 Balance -750 300 - Medications Medications: Current Medications [facility] Last Admin: 08/10/17 09:24 Dose: 4 gm Folic Acid (Folic Acid) 1 mg PO DAILY [facility] Last Admin: 08/10/17 09:23 Dose: 1 mg Furosemide (Lasix) 40 mg PO DAILY [facility] Last Admin: 08/10/17 10:39 Dose: 40 mg Lactulose (Enulose) 20 gm PO BID [facility] Loperamide HCl (Imodium) 2 mg PO QID PRN PRN Reason: Diarrhea Last Admin: 08/08/17 10:01 Dose: 2 mg Magnesium Oxide (Mag-Ox) 800 mg PO TID [facility] Last Admin: 08/01/17 14:47 Dose: Not Given Nicotine (Nicoderm Cq) 1 patch TD DAILY [facility] Last Admin: 08/10/17 09:22 Dose: 1 patch Pantoprazole Sodium (Protonix Ec Tab) 40 mg PO DAILY [facility] Last Admin: 08/10/17 09:22 Dose: 40 mg Petrolatum (Desitin Original) 1 gm TOP TID [facility] Last Admin: 08/10/17 14:08 Dose: 1 applic Rifaximin (Xifaxan) 550 mg PO BID [facility] Last Admin: 08/10/17 09:22 Dose: 550 mg Simethicone (Mylicon Chew Tab) 80 mg PO TID [facility] Last Admin: 08/10/17 14:08 Dose: 80 mg Spironolactone (Aldactone) 50 mg PO BID [facility] Last Admin: 08/10/17 09:23 Dose: 50 mg Thiamine HCl (Vitamin B1 Tab) 100 mg PO BID [facility] Last Admin: 08/10/17 09:22 Dose: 100 mg - Labs Labs: 08/10/17 08:08 08/10/17 08:24 PT 21.8 SECONDS (9.7-12.2) H 08/07/17 12:06 INR 1.9 08/07/17 12:06 APTT 34 SECONDS (21-34) 07/18/17 13:52
[2017-08-11 05:09] LABS: SQUAMOUS EPITHIAL 1 /hpf (0-5); URINE BACTERIA RARE (<OCC); URINE BILIRUBIN NEGATIVE (NEGATIVE); URINE BLOOD 2+ (NEGATIVE); URINE CLARITY Clear (Clear); URINE COLOR Yellow (YELLOW); URINE GLUCOSE (UA) NORMAL (Normal); URINE LEUKOCYTE ESTERASE NEG Leu/uL (Negative); URINE NITRATE NEGATIVE (NEGATIVE); URINE PROTEIN 2+ mg/dL (NEGATIVE); URINE UROBILINOGEN NORMAL mg/dL (0.2-1.0)
[2017-08-11 06:23] LABS: OSMOLALITY,URINE 348 mosm/kg (300-1000)
--- NOTE | 2017-08-11 06:54 | CP.PCM.PN ---
<Tima Beth - Last Filed: 08/11/17 11:19> Subjective - Date & Time of Evaluation Date of Evaluation: 08/11/17 Time of Evaluation: 07:10 - Subjective Subjective: Medicine progress note for Dr. Evans Patient seen and examined at bedside. Patient complains of ongoing diarrhea and abdominal pain. He seems to be more alert when seen in the morning, but when we returned for rounds, patient was more lethargic. Patient continues to refuse morning labs per sewing machine repairer helper. Objective - Vital Signs/Intake and Output Vital Signs (last 24 hours): Temp Pulse Resp BP Pulse Ox 99.2 F 96 H 20 99/67 L 97 08/10/17 23:23 08/10/17 23:23 08/10/17 23:23 08/10/17 23:23 08/10/17 23:23 Intake and Output: 08/10/17 08/11/17 18:59 06:59 Intake Total 300 350 Output Total 350 Balance 300 0 - Medications Medications: Current Medications Cholestyramine Resin (Questran) 4 gm PO BIDPC [facility] Last Admin: 08/10/17 18:36 Dose: 4 gm Folic Acid (Folic Acid) 1 mg PO DAILY [facility] Last Admin: 08/10/17 09:23 Dose: 1 mg Furosemide (Lasix) 40 mg PO DAILY [facility] Last Admin: 08/10/17 10:39 Dose: 40 mg Lactulose (Enulose) 20 gm PO BID [facility] Last Admin: 08/10/17 18:36 Dose: 20 gm Loperamide HCl (Imodium) 2 mg PO QID PRN PRN Reason: Diarrhea Last Admin: 08/08/17 10:01 Dose: 2 mg Magnesium Oxide (Mag-Ox) 800 mg PO TID [facility] Last Admin: 08/01/17 14:47 Dose: Not Given Nicotine (Nicoderm Cq) 1 patch TD DAILY [facility] Last Admin: 08/10/17 09:22 Dose: 1 patch Pantoprazole Sodium (Protonix Ec Tab) 40 mg PO DAILY [facility] Last Admin: 08/10/17 09:22 Dose: 40 mg Petrolatum (Desitin Original) 1 gm TOP TID [facility] Last Admin: 08/10/17 18:39 Dose: 1 applic Rifaximin (Xifaxan) 550 mg PO BID [facility] Last Admin: 01/24/18 18:36 Dose: 550 mg Simethicone (Mylicon Chew Tab) 80 mg PO TID [facility] Last Admin: 08/10/17 18:36 Dose: 80 mg Spironolactone (Aldactone) 50 mg PO BID [facility] Last Admin: 08/10/17 18:36 Dose: 50 mg Thiamine HCl (Vitamin B1 Tab) 100 mg PO BID [facility] Last Admin: 08/10/17 18:36 Dose: 100 mg - Labs Labs: 08/10/17 08:08 08/10/17 08:24 PT 21.8 SECONDS (9.7-12.2) H 08/07/17 12:06 INR 1.9 08/07/17 12:06 APTT 34 SECONDS (21-34) 07/18/17 13:52 - Additional Findings Additional findings: - Constitutional Appears: No Acute Distress - Head Exam Head Exam: ATRAUMATIC, NORMOCEPHALIC - Eye Exam Eye Exam: EOMI, Normal appearance - ENT Exam ENT Exam: Mucous Membranes Moist - Respiratory Exam Respiratory Exam: Clear to Ausculation Bilateral. absent: Rales, Rhonchi, Wheezes - Cardiovascular Exam Cardiovascular Exam: REGULAR RHYTHM, +S1, +S2 - GI/Abdominal Exam GI & Abdominal Exam: Distended (fluid shift), Soft, Tenderness (diffuse but primarily on the right side), Normal Bowel Sounds - Extremities Exam Extremities Exam: absent: Pedal Edema, Tenderness - Neurological Exam Neurological Exam: Awake Additional Comments: Oriented to person and year but not month or place. - Psychiatric Exam Psychiatric exam: Normal Affect, Normal Mood - Skin Skin Exam: Dry, Warm Assessment and Plan - Assessment and Plan (Free Text) Plan: Ascites and hepatic encephalopathy Consult GI, Dr South, help appreciated CT abd/pelvis shows small to moderate ascites Paracentesis done 07/19/17 with 2.1 L straw colored fluid removed. * peritoneal fluid no growth * Fluid WBC: 147, RBC: 216, neut: 41, lymph: 43, monocyte/macrophage: 15 Repeat paracentesis 08/04/17--4 Liters removed. Replenished with albumin 12.5 gm x2 doses Ammonia level on 08/09: 57--Xifaximin 550 mg PO BID restarted Lactulose 20 mg PO BID was added on 08/10 due to mental status. Colitis and Diarrhea No leukocytosis, afebrile giardia negative, stool ova and parasite negative, stool culture negative blood culture negative negative HIV and hep panel fecal fat study: normal c dif neg x 3 Desitin cream ordered for gluteal and sacral excoriations due to the uncontrolled loose stools Imaging: CT abd/pelvis with IV contrast 07/17: Significant bowel wall thickening involving the colon, appearance most consistent with acute colitis, cannot exclude underlying neoplasm. Small to moderate ascites. Fatty infiltration of the liver. Heterogeneous appearance to hepatic parenchyma. Some of appearance may be due to transient hepatic attenuation differences, concern for underlying lesion. Meds: Cipro 400 IV daily--discontinued Flagyl 500 IV Q8--discontinued Endoscopy (07/28): small hiatal hernia, patchy mild inflammation in gastric antrum biopsies, scalloped mucosa found in duodenum, suspicious for celiac disease- biopsied Colonoscopy (07/28): internal hemorrhoids, mucosal nodule in the sigmoid colon, in transverse colon and in the ascending colon- biopsied Per Dr. South, he suspects pancreatic insufficiency as possible cause due to low stool pancreatic elastase and ordered an MRCP MRCP unable to be obtained due to patient restlessness Dr. South consulted Dr. Guerrero (help appreciated) for evaluation of possible chronic pancreatitis and possible EUS work up * Per Dr. Guerrero, pursue EUS as an outpatient for definitive diagnosis of chronic pancreatitis * Pancreatic enzymes were started with meals and Aldactone increased to 50 mg PO BID by GI team [place] [address] units TID with meals Alcohol abuse/alcohol intoxication/alcohol withdrawal Elevated serum alcohol on admission 292 Seizure and aspiration precautions Ativan 1mg q4h prn for agitation Thiamine 100 mg daily Folic acid 1 mg daily Psych consult, Dr. Man, help appreciated Hyponatremia Nephrology consult Dr. Middleton, help appreciated Unclear if hyponatremia is due to cirrhosis or hypovolemia from diuretics. Trial of holding John and lasix performed. f/u repeat labs, though patient refusing so far. Patient previously on trial of NS 100 cc/hr without improvement Hypertonic saline solution on 08/09/17--corrected sodium to 130 Hypokalemia and Hypomagnesemia f/u and replete, though patient intermittently refuses labs including today 08/11 Anemia patient transfused 1 u PRBC on 07/20/17 Heme/onc consulted, Dr. Tran help appreciated stool occult blood negative Likely due from bone marrow suppression due to alcohol Tobacco use disorder Nicotine patch S/P Urinary Retention monitor urine output Elevated INR Vitamin K 5mg po daily for a total of 5 days (day 1 on 07/26, last dose to be given on 07/30) continue to monitor Prophylactic Measure/supportive care Pepcid 20mg po BID SCDs, Lovenox 40mg sc daily Simethicone 80mg po BID PT/OT Imodium prn Disposition: Patient with overall poor prognosis. Cirrhosis with ascites, severe pancreatic insufficiency. Palliative care consulted for goals of care. Patient estranged from . Will attempt to reach friend Luis [phone] Cristina Beth <Js Evans H - Last Filed: 08/11/17 15:09> Objective - Vital Signs/Intake and Output Vital Signs (last 24 hours): Temp Pulse Resp BP Pulse Ox 98.6 F 102 H 20 104/70 97 08/11/17 08:00 08/11/17 08:00 08/11/17 08:00 08/11/17 10:30 08/11/17 08:00 Intake and Output: 08/11/17 08/11/17 06:59 18:59 Intake Total 350 Output Total 350 Balance 0 - Medications Medications: Current Medications [facility] Admin: 08/11/17 09:12 Dose: 4 gm Folic Acid (Folic Acid) 1 mg PO DAILY [facility] Last Admin: 08/11/17 09:13 Dose: 1 mg Furosemide (Lasix) 40 mg PO DAILY [facility] Last Admin: 08/11/17 10:30 Dose: 40 mg Lactulose (Enulose) 10 gm PO BID [facility] Loperamide HCl (Imodium) 2 mg PO QID PRN PRN Reason: Diarrhea Last Admin: 08/08/17 10:01 Dose: 2 mg Magnesium Oxide (Mag-Ox) 800 mg PO TID [facility] Last Admin: 08/01/17 14:47 Dose: Not Given Nicotine (Nicoderm Cq) 1 patch TD DAILY [facility] Last Admin: 08/11/17 09:12 Dose: 1 patch Pantoprazole Sodium (Protonix Ec Tab) 40 mg PO DAILY [facility] Last Admin: 08/11/17 09:13 Dose: 40 mg Petrolatum (Desitin Original) 1 gm TOP TID [facility] Last Admin: 08/11/17 14:31 Dose: 1 applic Rifaximin (Xifaxan) 550 mg PO BID [facility] Last Admin: 08/11/17 09:12 Dose: 550 mg Simethicone (Mylicon Chew Tab) 80 mg PO TID [facility] Last Admin: 08/11/17 14:30 Dose: 80 mg Spironolactone (Aldactone) 50 mg PO BID [facility] Last Admin: 08/11/17 10:30 Dose: 50 mg Thiamine HCl (Vitamin B1 Tab) 100 mg PO BID [facility] Last Admin: 08/11/17 09:13 Dose: 100 mg - Labs Labs: 08/10/17 08:08 08/10/17 08:24 PT 21.8 SECONDS (9.7-12.2) H 08/07/17 12:06 INR 1.9 08/07/17 12:06 APTT 34 SECONDS (21-34) 07/18/17 13:52 Attending/Attestation - Attestation I have personally seen and examined this patient.: Yes I have fully participated in the care of the patient.: Yes I have reviewed all pertinent clinical information, including history, physical exam and plan: Yes Notes (Text): Medical attending: Patient was seen and examined by me with the medical records analyst. I reviewed the above note by medical records analyst and agree. I spoke with the palliative care nurse who is able to reach out to a personal friend the patient. This friend is going to try get family members to come and see the patient. However he is not sure if he is able to do so but he will try. Today when we saw the patient he remained lethargic as before. According to the nurses he is able to observed eating earlier in the day We are rechecking another serum ammonia level. He's currently on Xifaxan as well as lactulose at this time. The overall prognosis appears to be poor. He's been refusing lab work from time to time and has to be convinced to do so. thank you sJ Evans
[2017-08-11] MEDS: Cholestyramine 4 gm/Pkt UD PO SCH (09:12)
[2017-08-11] MEDS: Pantoprazole 40 mg EC Tab PO SCH (09:13)
[2017-08-11] MEDS: LIPASE/PROTEASE/AMYLASE 4,200 U ECC PO SCH ×3 (09:13→17:50)
[2017-08-11] MEDS: Simethicone 80 mg Chewtab PO SCH ×3 (09:13→17:50)
[2017-08-11] MEDS: Zinc Oxide Topical 30 gm Tube TOP SCH ×3 (10:31→17:55)
--- NOTE | 2017-08-11 13:26 | CP.PCM.PN ---
Subjective - Date & Time of Evaluation Date of Evaluation: 08/11/17 Time of Evaluation: 13:22 - Subjective Subjective: Patient continues to complain of RUQ pain and diarrhea, unchanged. Objective - Vital Signs/Intake and Output Vital Signs (last 24 hours): Temp Pulse Resp BP Pulse Ox 98.6 F 102 H 20 104/70 97 08/11/17 08:00 08/11/17 08:00 08/11/17 08:00 08/11/17 10:30 08/11/17 08:00 Intake and Output: 08/11/17 08/11/17 06:59 18:59 Intake Total 350 Output Total 350 Balance 0 - Medications Medications: Current Medications [facility] Last Admin: 08/11/17 09:12 Dose: 4 gm Folic Acid (Folic Acid) 1 mg PO DAILY [facility] Last Admin: 08/11/17 09:13 Dose: 1 mg Furosemide (Lasix) 40 mg PO DAILY [facility] Last Admin: 08/11/17 10:30 Dose: 40 mg Lactulose (Enulose) 10 gm PO BID [facility] Loperamide HCl (Imodium) 2 mg PO QID PRN PRN Reason: Diarrhea Last Admin: 08/08/17 10:01 Dose: 2 mg Magnesium Oxide (Mag-Ox) 800 mg PO TID [facility] Last Admin: 08/01/17 14:47 Dose: Not Given Nicotine (Nicoderm Cq) 1 patch TD DAILY [facility] Last Admin: 08/11/17 09:12 Dose: 1 patch Pantoprazole Sodium (Protonix Ec Tab) 40 mg PO DAILY [facility] Last Admin: 08/11/17 09:13 Dose: 40 mg Petrolatum (Desitin Original) 1 gm TOP TID [facility] Last Admin: 08/11/17 10:31 Dose: 1 applic Rifaximin (Xifaxan) 550 mg PO BID [facility] Last Admin: 08/11/17 09:12 Dose: 550 mg Simethicone (Mylicon Chew Tab) 80 mg PO TID [facility] Last Admin: 08/11/17 09:13 Dose: 80 mg Spironolactone (Aldactone) 50 mg PO BID [facility] Last Admin: 08/11/17 10:30 Dose: 50 mg Thiamine HCl (Vitamin B1 Tab) 100 mg PO BID [facility] Last Admin: 01/25/18 09:13 Dose: 100 mg - Labs Labs: 08/10/17 08:08 08/10/17 08:24 PT 21.8 SECONDS (9.7-12.2) H 08/07/17 12:06 INR 1.9 08/07/17 12:06 APTT 34 SECONDS (21-34) 07/18/17 13:52 - Constitutional Appears: No Acute Distress - Head Exam Head Exam: ATRAUMATIC, NORMOCEPHALIC - Eye Exam Eye Exam: absent: Scleral icterus - Neck Exam Neck Exam: absent: Lymphadenopathy, Thyromegaly - Respiratory Exam Respiratory Exam: NORMAL BREATHING PATTERN. absent: Rales, Rhonchi, Wheezes - Cardiovascular Exam Cardiovascular Exam: REGULAR RHYTHM, +S1, +S2. absent: Gallop, Rubs, Murmur - GI/Abdominal Exam GI & Abdominal Exam: Distended, Soft, Normal Bowel Sounds. absent: Tenderness, Organomegaly Additional comments: Positive fluid wave Assessment and Plan (1) Alcoholic hepatitis Assessment & Plan: LFTs are stable. Status: Acute (2) Diarrhea Assessment & Plan: Patient has diarrhea which has not improved with the increased dose of pancreatic enzymes. The quantitative fecal fat is pending. The use of lactulose in this patient is problematic in that it will tend to cause diarrhea and counteract the effects of imodium and cholestyramine. Status: Acute (3) Hyponatremia Assessment & Plan: Serum sodium declined to 122 on 08/06/2017, and with a 1500 cc fluid restriction , has increased to 130 as of 08/10/2017. AASLD guidllines suggest that fluid restriction is unnecessary if the sodium is above 125. I would continue diuretics. Status: Acute
--- NOTE | 2017-08-11 14:23 | CP.PCM.CON ---
History of Present Illness - History of Present Illness History of Present Illness: Palliative consult requested by Ignacia MAC for goals of care discussion Patent is a 51 yo male admited from home intoxicated and with complaints of abdominal pain X 2 weeks. After multiple diagnostic studies and procedures at the hospital, patient was diagnosed with liver cirrhosis and colitis. Doctor Chelsea consulted for evaluation of possible malignancy. Patient is post colonscopy and pathology results are pending. Post paracentesis as well. Per psych eval , patient found capable of decisions making. However, patient is going in and out of confusion. PMH: HTN Soc. Hx: single, unemployed,estranged , two sons in [place], ETOH abuse Fam. Hx: Patient denies significant family Hx Review of Systems - Constitutional Constitutional: Daytime Sleepiness, Fatigue - EENT Eyes: absent: As Per HPI, Blind Spots, Blurred Vision, Change in Vision, Decreased Night Vision, Diplopia, Discharge, Dry Eye, Exophthalmos, Floaters, Irritation, Itchy Eyes, Loss of Peripheral Vision, Pain, Photophobia, Requires Corrective Lenses, Sees Flashes, Spots in Vision, Tunnel Vision, Other Visual Disturbances, Loss of Vision, Other Ears: absent: As Per HPI, Decreased Hearing, Ear Discharge, Ear Pain, Tinnitus, Abnormal Hearing, Disequilibrium, Dizziness, Other Nose/Mouth/Throat: absent: As Per HPI, Epistaxis, Nasal Congestion, Nasal Discharge, Nasal Obstruction, Nasal Trauma, Nose Pain, Post Nasal Drip, Sinus Pain, Sinus Pressure, Bleeding Gums, Change in Voice, Dental Pain, Dry Mouth, Dysphagia, Halitosis, Hoarsness, Lip Swelling, Mouth Lesions, Mouth Pain, Odynophagia, Sore Throat, Throat Swelling, Tongue Swelling, Facial Pain, Neck Pain, Neck Mass, Other - Cardiovascular Cardiovascular: absent: As Per HPI, Acrocyanosis, Chest Pain, Chest Pain at Rest , Chest Pain with Activity, Claudication, Diaphoresis, Dyspnea, Dyspnea on Exertion, Edema, Irregular Heart Rhythm, Pain Radiating to Arm/Neck/Jaw, Leg Edema, Leg Ulcers, Lightheadedness, Orthopnea, Palpitations, Paroxysmal Nocturnal Dyspnea, Pedal Edema, Radiating Pain, Rapid Heart Rate, Slow Heart Rate, Syncope, Other - Respiratory Respiratory: Cough - Gastrointestinal Gastrointestinal: Bloating, Diarrhea - Genitourinary Genitourinary: absent: As Per HPI, Change in Urinary Stream, Difficulty Urinating, Dysuria, Flank Pain, Hematuria, Pyuria, Nocturia, Urinary Incontinence, Urinary Frequency, Urinary Hesitance, Urinary Urgency, Voiding Freq/Small Amts, Freq UTI, Hx Renal/Bladder Calculi, Hx /Renal Surgery, Bladder Distension, Other - Musculoskeletal Musculoskeletal: Limited Range of Motion - Integumentary Integumentary: Change in Pigmentation - Neurological Neurological: Confusion, Memory Loss - Psychiatric Psychiatric: Irritability - Endocrine Endocrine: Fatigue Past Patient History - Infectious Disease Hx of Infectious Diseases: None - Tetanus Immunizations Tetanus Immunization: Unknown - Past Medical History & Family History Past Medical History?: Yes - Past Social History Smoking Status: Never Smoked Chewing Tobacco Use: Yes Alcohol: > 2 Drinks/Day Drugs: Denies Home Situation {Lives}: Homeless - CARDIAC Hx Hypertension: Yes - PULMONARY Hx Respiratory Disorders: No - NEUROLOGICAL Hx Neurological Disorder: No - HEENT Hx HEENT Problems: No - RENAL Hx Chronic Kidney Disease: No - ENDOCRINE/METABOLIC Hx Endocrine Disorders: No - HEMATOLOGICAL/ONCOLOGICAL Hx Blood Disorders: No - INTEGUMENTARY Hx Dermatological Problems: No - MUSCULOSKELETAL/RHEUMATOLOGICAL Hx Musculoskeletal Disorders: No Hx Falls: No - GASTROINTESTINAL Hx Gastrointestinal Disorders: Yes Hx Liver Failure: Yes Other/Comment: LIVER CIRRHOSIS AND ASCITES. - GENITOURINARY/GYNECOLOGICAL Hx Genitourinary Disorders: No - PSYCHIATRIC Hx Substance Use: No - SURGICAL HISTORY Hx Surgeries: No - ANESTHESIA Hx Anesthesia: No Meds Allergies/Adverse Reactions: Allergies Allergy/AdvReac Type Severity Reaction Status Date / Time No Known Allergies Allergy Verified 06/22/17 20:40 - Medications Medications: Current Medications [facility] ([facility] Last Admin: 08/11/17 09:12 Dose: 4 gm Folic Acid (Folic Acid) 1 mg PO DAILY [facility] Last Admin: 08/11/17 09:13 Dose: 1 mg Furosemide (Lasix) 40 mg PO DAILY [facility] Last Admin: 08/11/17 10:30 Dose: 40 mg Lactulose (Enulose) 10 gm PO BID [facility] Loperamide HCl (Imodium) 2 mg PO QID PRN PRN Reason: Diarrhea Last Admin: 08/08/17 10:01 Dose: 2 mg Magnesium Oxide (Mag-Ox) 800 mg PO TID [facility] Last Admin: 08/01/17 14:47 Dose: Not Given Nicotine (Nicoderm Cq) 1 patch TD DAILY [facility] Last Admin: 08/11/17 09:12 Dose: 1 patch Pantoprazole Sodium (Protonix Ec Tab) 40 mg PO DAILY [facility] Last Admin: 08/11/17 09:13 Dose: 40 mg Petrolatum (Desitin Original) 1 gm TOP TID [facility] Last Admin: 08/11/17 10:31 Dose: 1 applic Rifaximin (Xifaxan) 550 mg PO BID [facility] Last Admin: 08/11/17 09:12 Dose: 550 mg Simethicone (Mylicon Chew Tab) 80 mg PO TID [facility] Last Admin: 08/11/17 09:13 Dose: 80 mg Spironolactone (Aldactone) 50 mg PO BID [facility] Last Admin: 08/11/17 10:30 Dose: 50 mg Thiamine HCl (Vitamin B1 Tab) 100 mg PO BID [facility] Last Admin: 08/11/17 09:13 Dose: 100 mg Physical Exam - Constitutional Appears: Chronically Ill - Head Exam Head Exam: ATRAUMATIC, NORMAL INSPECTION, NORMOCEPHALIC - Eye Exam Eye Exam: EOMI, Normal appearance, PERRL, Scleral icterus Pupil Exam: NORMAL ACCOMODATION, PERRL - ENT Exam ENT Exam: Mucous Membranes Dry, Normal Exam - Neck Exam Neck exam: Positive for: Normal Inspection - Respiratory Exam Respiratory Exam: Decreased Breath Sounds, NORMAL BREATHING PATTERN Additional comments: dry cough - Cardiovascular Exam Cardiovascular Exam: Tachycardia - GI/Abdominal Exam GI & Abdominal Exam: Diminished Bowel Sounds, Distended, Firm, Guarding - Rectal Exam Rectal Exam: Deferred - Exam Exam: NORMAL INSPECTION - Extremities Exam Extremities exam: Positive for: normal inspection - Back Exam Back exam: NORMAL INSPECTION - Neurological Exam Neurological exam: Alert, Altered - Psychiatric Exam Psychiatric exam: Anxious - Skin Skin Exam: Pallor Results - Vital Signs Recent Vital Signs: Last Vital Signs Temp 98.6 F 08/11/17 08:00 Pulse 102 H 08/11/17 08:00 Resp 20 08/11/17 08:00 BP 104/70 08/11/17 10:30 Pulse Ox 97 08/11/17 08:00 - Labs Result Diagrams: 08/10/17 08:08 08/10/17 08:24 Labs: Laboratory Results - last 24 hr 01/25/18 01/25/18 01/25/18 04:58 06:05 06:35 POC Glucose (mg/dL) 105 Urine Color Yellow Urine Clarity Clear Urine pH 5.0 Ur Specific Tensed 1.011 Urine Protein 2+ H Urine Glucose (UA) Normal Urine Ketones Negative Urine Blood 2+ H Urine Nitrate Negative Urine Bilirubin Negative Urine Urobilinogen Normal Ur Leukocyte Esterase Neg Urine WBC (Auto) 9 H Urine RBC (Auto) 15 H Ur Squamous Epith Cells 1 Urine Bacteria Rare Hyaline Casts 6-10 H Urine Yeast (Budding) Occ H Urine Osmolality 348 Ur Random Sodium 49 08/11/17 11:22 POC Glucose (mg/dL) 118 H Urine Color Urine Clarity Urine pH Ur Specific Tensed Urine Protein Urine Glucose (UA) Urine Ketones Urine Blood Urine Nitrate Urine Bilirubin Urine Urobilinogen Ur Leukocyte Esterase Urine WBC (Auto) Urine RBC (Auto) Ur Squamous Epith Cells Urine Bacteria Hyaline Casts Urine Yeast (Budding) Urine Osmolality Ur Random Sodium Assessment & Plan - Assessment and Plan (Free Text) Assessment: Palliative consult Code status Full Code, there is no Advance Directive on chart, PPS 20 % I reviewed medical records, all diagnostic studies, examined and interviewed patient in the bed. Patient is alert, altered, looking ill with affect that is anxious. When asked if he knew where he was , patient answered " sometimes I know, sometimes I do not".Skin and sclera yellowish. T Deric elevated at 2.5. Interview was limited due to his intermittent confusion. Patient strongly denid having family members here in [facility], his did not want to hear about him and his two children were in [place]. Than patient insisted he was tired, wanted to sleep and asked me " to come back in 1 hr". Physical exam reveals dry cough; o2Sat 97 % RA, tachycardia HR 102,distended and rigid abdomen , reports abdominal pain. Pain is diffused throughout the whole abdomen and feels like pressure. patient is S/P paracentesis. Patient reports loose BMs. Lactulose on board due to high Amonia level. With help from Rocio I was able to get in touch with patient's friend Mr. Danish Fischer. Mr. Fischer stated knowing patient for > 20 years. Per him, patient has been drinking heavily and left him. Per Mr. Fischer, while patient was more alert, he stated his wishes were to return to [place]. I suggested that it should be further discussed with PMD and my Opinion was that could be a very risky plan due to long flight to [place]. I asked Mr. Fischer to get me patient's children phone numbers in [place], what he promised he was going to do. This was shared with Doctor Cristina. Impression * This is acutelly ill man due to symptoms due to liver cirrhosis 2nd to ETOH * Patient is with intermittent confusion due to elevated Ammonia level * Patient's wishes for end of life care are not known * Patient is unable to participate in decision making process due to confusion * Only call or contact centre manager is patient's friend Danish Fischer [phone] * Per friend, patient wished to return to [facility] * There is no family support, estranged, children in [place] * Abdominal pain due to distention * Day time sleepiness * Fatigue Suggestion * Continue Lactulose * Promote safety * Would consider Morphine 5 mg IV Q 4 hr for severe pain * Will continue to fallow up with patient once his Ammonia level is normal and patient is more alert. Will discuss Code status Time spent in Advance care planing 45 min Thank you very much for consulting Palliative Care
--- NOTE | 2017-08-11 14:46 | CP.PCM.PN ---
Subjective - Date & Time of Evaluation Date of Evaluation: 08/11/17 Time of Evaluation: 14:45 - Subjective Subjective: Follow up Nephrology Consultation Note Assessment: critical Hyponatremia likely hypovolemic, due to diuretics and ongoing GI volume loss due to enterocolitis Cirrhosis, smoker and Etoh abuse Lethargy less likely due to hyponatremia considering more or less stable Na over last 1 week Hypomagnesemia Plan continue to hold diuretics. can resume aldactone if allowed by BP supplement electrolytes as needed avoid correction in serum Na >6-8 meq/24 hr. d/c hypertonic saline as serum Na 130 glycemic control supplement electrolytes as needed repeat BMP Further work up as per primary team Thanks for allowing me to participate in care of your patient. Will follow patient with you. Please call if any Qs. Dr Ciro Middleton Office: [phone] Subjective: Noted events overnight. Patients not able to provide much significant reliable hx due to confusion Physical Examination: General Appearance: Comfortable, in no acute respiratory distress, co-operative . ill appearing Vitals reviewed and noted as below Head; Atraumatic, normocephalic ENT: no ulcers no thrush. Tongue is midline. Oropharynx: no rash or ulcers. EYES: Pupils are equal, round and reactive to light accommodation. Eye muscles and extraocular movement intact. Sclera is anicteric. Neck; supple no lymphadenopathy, no thyromegaly or bruit Lungs: Normal respiratory rate/effort. Breath sounds bilateral equal and clear Heart: normal rate. s1s2 normal. No rub or gallop. Extremities: no edema. No varicose veins Neurological: Patient is awake confused Skin: Warm and dry. Normal turgor. No rash. Palpitation: Normal elasticity for age Abdomen: Abdomen is soft. Bowel sounds +. There is mild abdominal tenderness, no guarding/rigidity no organomegaly. has ascites Psych: unable MSK: no joint tenderness or swelling. Digits and nails normal, no deformity : kidney or bladder not palpable Labs/imaging reviewed. Past medical history, past surgical history, family history, social history, allergy reviewed and noted as below Family hx: no hx of CKD. Rest non-contributory Imaging: enterocolitis and atrophic pancreas urine Na 43 and urine osmol 401 Objective - Vital Signs/Intake and Output Vital Signs (last 24 hours): Temp Pulse Resp BP Pulse Ox 98.6 F 102 H 20 104/70 97 08/11/17 08:00 08/11/17 08:00 08/11/17 08:00 08/11/17 10:30 08/11/17 08:00 Intake and Output: 08/11/17 08/11/17 06:59 18:59 Intake Total 350 Output Total 350 Balance 0 - Medications Medications: Current Medications [facility] Admin: 08/11/17 09:12 Dose: 4 gm Folic Acid (Folic Acid) 1 mg PO DAILY [facility] Last Admin: 08/11/17 09:13 Dose: 1 mg Furosemide (Lasix) 40 mg PO DAILY [facility] Last Admin: 08/11/17 10:30 Dose: 40 mg Lactulose (Enulose) 10 gm PO BID [facility] Loperamide HCl (Imodium) 2 mg PO QID PRN PRN Reason: Diarrhea Last Admin: 08/08/17 10:01 Dose: 2 mg Magnesium Oxide (Mag-Ox) 800 mg PO TID [facility] Last Admin: 08/01/17 14:47 Dose: Not Given Nicotine (Nicoderm Cq) 1 patch TD DAILY [facility] Last Admin: 08/11/17 09:12 Dose: 1 patch Pantoprazole Sodium (Protonix Ec Tab) 40 mg PO DAILY [facility] Last Admin: 08/11/17 09:13 Dose: 40 mg Petrolatum (Desitin Original) 1 gm TOP TID [facility] Last Admin: 08/11/17 14:31 Dose: 1 applic Rifaximin (Xifaxan) 550 mg PO BID [facility] Last Admin: 08/11/17 09:12 Dose: 550 mg Simethicone (Mylicon Chew Tab) 80 mg PO TID [facility] Last Admin: 08/11/17 14:30 Dose: 80 mg Spironolactone (Aldactone) 50 mg PO BID [facility] Last Admin: 08/11/17 10:30 Dose: 50 mg Thiamine HCl (Vitamin B1 Tab) 100 mg PO BID [facility] Last Admin: 08/11/17 09:13 Dose: 100 mg - Labs Labs: 08/10/17 08:08 08/10/17 08:24 PT 21.8 SECONDS (9.7-12.2) H 08/07/17 12:06 INR 1.9 08/07/17 12:06 APTT 34 SECONDS (21-34) 07/18/17 13:52
[2017-08-12] MEDS: LIPASE/PROTEASE/AMYLASE 4,200 U ECC PO SCH ×3 (08:34→16:23)
[2017-08-12] MEDS: Simethicone 80 mg Chewtab PO SCH ×3 (09:34→18:28)
[2017-08-12] MEDS: Pantoprazole 40 mg EC Tab PO SCH (09:34)
[2017-08-12] MEDS: Zinc Oxide Topical 30 gm Tube TOP SCH ×3 (09:37→18:29)
[2017-08-12] MEDS: Cholestyramine 4 gm/Pkt UD PO SCH ×2 (09:38→18:28)
[2017-08-12 11:34] LABS: BASO # 0.1 K/uL (0.0-0.2); EOS # 0.1 K/uL (0.0-0.7); EOS % 0.5 % (0.0-4.0); HEMOGLOBIN 8.1 g/dL (12.0-18.0); INR 1.6; LYMPH % 18.7 % (20.0-40.0); MEAN CELL VOLUME 89.4 fL (80.0-94.0); MEAN CORPUSCULAR HEMOGLOBIN 30.8 pg (27.0-31.0); MEAN CORPUSCULAR HGB CONC 34.5 g/dL (33.0-37.0); MEAN PLATELET VOLUME 8.9 fL (7.2-11.7); MONO # 0.8 K/uL (0.0-0.8); MONO % 7.2 % (0.0-10.0); NEUT # 7.9 K/uL (1.8-7.0); NEUT % 72.6 % (50.0-75.0); PROTHROMBIN TIME 18.6 SECONDS (9.7-12.2); RBC 2.64 Mil/uL (4.40-5.90); WHITE BLOOD COUNT 10.9 K/uL (4.8-10.8)
[2017-08-12 11:50] LABS: ALB/GLOB RATIO 0.7 (1.0-2.1); ALBUMIN 2.4 g/dL (3.5-5.0); ALT/SGPT 45 U/L (21-72); AST/SGOT 122 U/L (17-59); BLOOD UREA NITROGEN 6 mg/dL (9-20); GFR AFRICAN-AMERICAN > 60; GFR NON-AFRICAN AMERICAN > 60; MAGNESIUM 1.3 mg/dL (1.6-2.3)
[2017-08-12] MEDS: Magnesium Sulfate 1 gm in D5W 1 GM/100 ML BAG IVPB SCH ×2 (13:04→13:05)
--- NOTE | 2017-08-12 15:43 | CP.PCM.PN ---
Subjective - Date & Time of Evaluation Date of Evaluation: 08/12/17 Time of Evaluation: 15:41 - Subjective Subjective: Follow up Nephrology Consultation Note Assessment: stable Hyponatremia multifactorial, due to diuretics and ongoing GI volume loss due to enterocolitis, ADH stimulation, chronic etoh Cirrhosis, smoker and Etoh abuse Hypomagnesemia Plan continue to hold diuretics. continue with aldactone as allowed by BP supplement electrolytes as needed avoid correction in serum Na >6-8 meq/24 hr. started NaCl tab 1 gram bid glycemic control supplement electrolytes as needed Further work up as per primary team Thanks for allowing me to participate in care of your patient. Will follow patient with you. Please call if any Qs. Dr Ciro Middleton Office: [phone] Subjective: Noted events overnight. Patients denies CP/palpitation/SOB. had loose stool Physical Examination: General Appearance: Comfortable, in no acute respiratory distress, co-operative . ill appearing Vitals reviewed and noted as below Head; Atraumatic, normocephalic ENT: no ulcers no thrush. Tongue is midline. Oropharynx: no rash or ulcers. EYES: Pupils are equal, round and reactive to light accommodation. Eye muscles and extraocular movement intact. Sclera is anicteric. Neck; supple no lymphadenopathy, no thyromegaly or bruit Lungs: Normal respiratory rate/effort. Breath sounds bilateral equal and clear Heart: Increased rate. s1s2 normal. No rub or gallop. Extremities: no edema. No varicose veins Neurological: Patient is awake but intermittently confused Skin: Warm and dry. Normal turgor. No rash. Palpitation: Normal elasticity for age Abdomen: Abdomen is soft. Bowel sounds +. There is mild abdominal tenderness, no guarding/rigidity no organomegaly. has ascites Psych: unable MSK: no joint tenderness or swelling. Digits and nails normal, no deformity : kidney or bladder not palpable Labs/imaging reviewed. Past medical history, past surgical history, family history, social history, allergy reviewed and noted as below Family hx: no hx of CKD. Rest non-contributory Imaging: enterocolitis and atrophic pancreas urine Na 43 and urine osmol 401 Objective - Vital Signs/Intake and Output Vital Signs (last 24 hours): Temp Pulse Resp BP Pulse Ox 98.8 F 96 H 20 95/64 L 96 08/12/17 08:00 08/12/17 12:11 08/12/17 08:00 08/12/17 09:37 08/12/17 08:00 Intake and Output: 08/12/17 08/12/17 06:59 18:59 Intake Total 360 500 Balance 360 500 - Medications Medications: Current Medications [facility] ([facility] Last Admin: 08/12/17 09:38 Dose: 4 gm Folic Acid (Folic Acid) 1 mg PO DAILY [facility] Last Admin: 08/12/17 09:34 Dose: 1 mg Furosemide (Lasix) 40 mg PO DAILY [facility] Last Admin: 08/12/17 09:37 Dose: Not Given Lactulose (Enulose) 10 gm PO BID [facility] Last Admin: 08/12/17 09:37 Dose: 10 gm Magnesium Oxide (Mag-Ox) 800 mg PO TID [facility] Last Admin: 08/01/17 14:47 Dose: Not Given Nicotine (Nicoderm Cq) 1 patch TD DAILY [facility] Last Admin: 08/12/17 09:36 Dose: 1 patch Pantoprazole Sodium (Protonix Ec Tab) 40 mg PO DAILY [facility] Last Admin: 08/12/17 09:34 Dose: 40 mg Petrolatum (Desitin Original) 1 gm TOP TID [facility] Last Admin: 08/12/17 13:05 Dose: 1 applic Rifaximin (Xifaxan) 550 mg PO BID [facility] Last Admin: 08/12/17 09:36 Dose: 550 mg Simethicone (Mylicon Chew Tab) 80 mg PO TID [facility] Last Admin: 08/12/17 13:04 Dose: 80 mg Sodium Chloride (Sodium Chloride Tab) 1 gm PO BID [facility] Last Admin: 08/12/17 13:09 Dose: 1 gm Spironolactone (Aldactone) 50 mg PO BID [facility] Last Admin: 08/12/17 09:33 Dose: 50 mg Thiamine HCl (Vitamin B1 Tab) 100 mg PO BID [facility] Last Admin: 08/12/17 09:33 Dose: 100 mg - Labs Labs: 08/12/17 11:16 08/12/17 11:16 PT 18.6 SECONDS (9.7-12.2) H 08/12/17 11:16 INR 1.6 08/12/17 11:16 APTT 34 SECONDS (21-34) 07/18/17 13:52
--- NOTE | 2017-08-12 18:45 | CP.PCM.PN ---
Subjective - Date & Time of Evaluation Date of Evaluation: 08/12/17 Time of Evaluation: 07:00 - Subjective Subjective: Medicine Progress Note: Patient seen and examined at bedside. Patient complains of diarrhea and abdominal pain, but states that his abdominal pain has improved. Patient seems more alert today compared to yesterday. Patient oriented to person, and place, but not time. Patient complains of new onset cough without any phlegm production. Patient states that he feels hungry but is unable to eat. Objective - Vital Signs/Intake and Output Vital Signs (last 24 hours): Temp Pulse Resp BP Pulse Ox 98.6 F 110 H 20 117/77 98 08/12/17 16:50 08/12/17 16:50 08/12/17 16:50 08/12/17 16:50 08/12/17 16:50 Intake and Output: 08/12/17 08/12/17 06:59 18:59 Intake Total 360 500 Balance 360 500 - Medications Medications: Current Medications Cholestyramine Resin (Questran) 4 gm PO BIDPC [facility] Last Admin: 08/12/17 18:28 Dose: 4 gm Folic Acid (Folic Acid) 1 mg PO DAILY [facility] Last Admin: 08/12/17 09:34 Dose: 1 mg Furosemide (Lasix) 40 mg PO DAILY [facility] Last Admin: 08/12/17 09:37 Dose: Not Given Lactulose (Enulose) 10 gm PO BID [facility] Last Admin: 08/12/17 18:28 Dose: 10 gm Magnesium Oxide (Mag-Ox) 800 mg PO TID [facility] Last Admin: 08/01/17 14:47 Dose: Not Given Nicotine (Nicoderm Cq) 1 patch TD DAILY [facility] Last Admin: 08/12/17 09:36 Dose: 1 patch Pantoprazole Sodium (Protonix Ec Tab) 40 mg PO DAILY [facility] Last Admin: 08/12/17 09:34 Dose: 40 mg Petrolatum (Desitin Original) 1 gm TOP TID [facility] Last Admin: 08/12/17 18:29 Dose: 1 applic Rifaximin (Xifaxan) 550 mg PO BID [facility] Last Admin: 08/12/17 18:28 Dose: 550 mg Simethicone (Mylicon Chew Tab) 80 mg PO TID [facility] Last Admin: 08/12/17 18:28 Dose: 80 mg Sodium Chloride (Sodium Chloride Tab) 1 gm PO BID [facility] Last Admin: 08/12/17 18:27 Dose: 1 gm Spironolactone (Aldactone) 50 mg PO BID [facility] Last Admin: 08/12/17 18:28 Dose: 50 mg Thiamine HCl (Vitamin B1 Tab) 100 mg PO BID [facility] Last Admin: 08/12/17 18:34 Dose: 100 mg - Labs Labs: 08/12/17 11:16 08/12/17 11:16 PT 18.6 SECONDS (9.7-12.2) H 08/12/17 11:16 INR 1.6 08/12/17 11:16 APTT 34 SECONDS (21-34) 07/18/17 13:52 - Constitutional Appears: No Acute Distress, Chronically Ill - Head Exam Head Exam: ATRAUMATIC, NORMAL INSPECTION - Eye Exam Eye Exam: EOMI, Normal appearance - ENT Exam ENT Exam: Mucous Membranes Moist - Respiratory Exam Respiratory Exam: Clear to Ausculation Bilateral, NORMAL BREATHING PATTERN - Cardiovascular Exam Cardiovascular Exam: REGULAR RHYTHM, +S1, +S2 - GI/Abdominal Exam GI & Abdominal Exam: Distended, Soft, Tenderness (diffuse), Normal Bowel Sounds - Neurological Exam Neurological Exam: Alert, Awake. absent: Oriented x3 (oriented to person and place but not time ) - Psychiatric Exam Psychiatric exam: Normal Affect, Normal Mood - Skin Skin Exam: Dry, Warm Assessment and Plan - Assessment and Plan (Free Text) Assessment: Ascites and hepatic encephalopathy Consult GI, Dr South, help appreciated CT abd/pelvis shows small to moderate ascites Paracentesis done 07/19/17 with 2.1 L straw colored fluid removed. * peritoneal fluid no growth * Fluid WBC: 147, RBC: 216, neut: 41, lymph: 43, monocyte/macrophage: 15 Repeat paracentesis 08/04/17--4 Liters removed. Replenished with albumin 12.5 gm x2 doses Ammonia level on 08/09: 57--Xifaximin 550 mg PO BID restarted Lactulose 20 mg PO BID was added on 08/10 due to mental status. Colitis and Diarrhea No leukocytosis, afebrile giardia negative, stool ova and parasite negative, stool culture negative blood culture negative negative HIV and hep panel fecal fat study: normal c dif neg x 3 Desitin cream ordered for gluteal and sacral excoriations due to the uncontrolled loose stools Imaging: CT abd/pelvis with IV contrast 07/17: Significant bowel wall thickening involving the colon, appearance most consistent with acute colitis, cannot exclude underlying neoplasm. Small to moderate ascites. Fatty infiltration of the liver. Heterogeneous appearance to hepatic parenchyma. Some of appearance may be due to transient hepatic attenuation differences, concern for underlying lesion. Meds: Cipro 400 IV daily--discontinued Flagyl 500 IV Q8--discontinued Endoscopy (07/28): small hiatal hernia, patchy mild inflammation in gastric antrum biopsies, scalloped mucosa found in duodenum, suspicious for celiac disease- biopsied Colonoscopy (07/28): internal hemorrhoids, mucosal nodule in the sigmoid colon, in transverse colon and in the ascending colon- biopsied Per Dr. South, he suspects pancreatic insufficiency as possible cause due to low stool pancreatic elastase and ordered an MRCP MRCP unable to be obtained due to patient restlessness Dr. South consulted Dr. Guerrero (help appreciated) for evaluation of possible chronic pancreatitis and possible EUS work up * Per Dr. Guerrero, pursue EUS as an outpatient for definitive diagnosis of chronic pancreatitis * Pancreatic enzymes were started with meals and Aldactone increased to 50 mg PO BID by GI team [place] [address] units TID with meals Alcohol abuse/alcohol intoxication/alcohol withdrawal Elevated serum alcohol on admission 292 Seizure and aspiration precautions Ativan 1mg q4h prn for agitation Thiamine 100 mg daily Folic acid 1 mg daily Psych consult, Dr. Man, help appreciated Hyponatremia Nephrology consult Dr. Middleton, help appreciated Unclear if hyponatremia is due to cirrhosis or hypovolemia from diuretics. Trial of holding John and lasix performed. f/u repeat labs, though patient refusing so far. Patient previously on trial of NS 100 cc/hr without improvement Hypertonic saline solution on 08/09/17--corrected sodium to 130 Per nephrology to hold diuretics, continue aldactone as allowed by BP Hypokalemia and Hypomagnesemia f/u and replete, though patient intermittently refuses labs including today 08/11 Anemia patient transfused 1 u PRBC on 07/20/17 Heme/onc consulted, Dr. Tran help appreciated stool occult blood negative Likely due from bone marrow suppression due to alcohol Tobacco use disorder Nicotine patch S/P Urinary Retention monitor urine output Elevated INR Vitamin K 5mg po daily for a total of 5 days (day 1 on 07/26, last dose to be given on 07/30) continue to monitor Prophylactic Measure/supportive care Pepcid 20mg po BID SCDs, Lovenox 40mg sc daily Simethicone 80mg po BID PT/OT Imodium prn Disposition: Patient with overall poor prognosis. Cirrhosis with ascites, severe pancreatic insufficiency. Palliative care consulted for goals of care. Patient estranged from . Will attempt to reach friend Luis [phone]
--- NOTE | 2017-08-13 03:07 | CP.PCM.PN ---
<TraceyTima christensen S - Last Filed: 08/13/17 07:38> Subjective - Date & Time of Evaluation Date of Evaluation: 08/13/17 Time of Evaluation: 05:20 - Subjective Subjective: Medicine progress note for Dr. Evans Patient seen and examined at bedside. Patient states that diarrhea is ongoing. Pain has improved slightly. Patient continues to cough intermittently. Patient spiked fever overnight 102.8. Objective - Vital Signs/Intake and Output Vital Signs (last 24 hours): Temp Pulse Resp BP Pulse Ox 102.8 F H 112 H 20 101/64 95 08/12/17 23:50 08/13/17 01:00 08/12/17 23:50 08/12/17 23:50 08/12/17 23:50 Intake and Output: 08/12/17 08/13/17 18:59 06:59 Intake Total 500 Output Total 300 Balance 500 -300 - Medications Medications: Current Medications Cholestyramine Resin (Questran) 4 gm PO BIDPC [facility] Last Admin: 08/12/17 18:28 Dose: 4 gm Folic Acid (Folic Acid) 1 mg PO DAILY [facility] Last Admin: 08/12/17 09:34 Dose: 1 mg Furosemide (Lasix) 40 mg PO DAILY [facility] Last Admin: 08/12/17 09:37 Dose: Not Given Lactulose (Enulose) 10 gm PO BID [facility] Last Admin: 08/12/17 18:28 Dose: 10 gm Magnesium Oxide (Mag-Ox) 800 mg PO TID [facility] Last Admin: 08/01/17 14:47 Dose: Not Given Nicotine (Nicoderm Cq) 1 patch TD DAILY [facility] Last Admin: 08/12/17 09:36 Dose: 1 patch Pantoprazole Sodium (Protonix Ec Tab) 40 mg PO DAILY [facility] Last Admin: 08/12/17 09:34 Dose: 40 mg Petrolatum (Desitin Original) 1 gm TOP TID [facility] Last Admin: 08/12/17 18:29 Dose: 1 applic Rifaximin (Xifaxan) 550 mg PO BID [facility] Last Admin: 08/12/17 18:28 Dose: 550 mg Simethicone (Mylicon Chew Tab) 80 mg PO TID [facility] Last Admin: 08/12/17 18:28 Dose: 80 mg Sodium Chloride (Sodium Chloride Tab) 1 gm PO BID [facility] Last Admin: 08/12/17 18:27 Dose: 1 gm Spironolactone (Aldactone) 50 mg PO BID [facility] Last Admin: 08/12/17 18:28 Dose: 50 mg Thiamine HCl (Vitamin B1 Tab) 100 mg PO BID [facility] Last Admin: 08/12/17 18:34 Dose: 100 mg - Labs Labs: 08/12/17 11:16 08/12/17 11:16 PT 18.6 SECONDS (9.7-12.2) H 08/12/17 11:16 INR 1.6 08/12/17 11:16 APTT 34 SECONDS (21-34) 07/18/17 13:52 - Additional Findings Additional findings: - Constitutional Appears: No Acute Distress, Chronically Ill - Head Exam Head Exam: ATRAUMATIC, NORMAL INSPECTION - Eye Exam Eye Exam: EOMI, Normal appearance - ENT Exam ENT Exam: Mucous Membranes Moist - Respiratory Exam Respiratory Exam: Clear to Ausculation Bilateral, NORMAL BREATHING PATTERN - Cardiovascular Exam Cardiovascular Exam: REGULAR RHYTHM, +S1, +S2 - GI/Abdominal Exam GI & Abdominal Exam: Distended, Soft, Tenderness (diffuse), Normal Bowel Sounds - Neurological Exam Neurological Exam: Alert, Awake. absent: Oriented x3 (oriented to person and place but not time ) - Psychiatric Exam Psychiatric exam: Normal Affect, Normal Mood - Skin Skin Exam: Dry, Warm Assessment and Plan - Assessment and Plan (Free Text) Plan: Ascites and hepatic encephalopathy Consult GI, Dr South, help appreciated CT abd/pelvis shows small to moderate ascites Paracentesis done 07/19/17 with 2.1 L straw colored fluid removed. * peritoneal fluid no growth * Fluid WBC: 147, RBC: 216, neut: 41, lymph: 43, monocyte/macrophage: 15 Repeat paracentesis 08/04/17--4 Liters removed. Replenished with albumin 12.5 gm x2 doses Ammonia level on 08/09: 57--Xifaximin 550 mg PO BID restarted Lactulose 20 mg PO BID was added on 08/10 due to mental status. Colitis and Diarrhea No leukocytosis, afebrile giardia negative, stool ova and parasite negative, stool culture negative blood culture negative negative HIV and hep panel fecal fat study: normal c dif neg x 3 Desitin cream ordered for gluteal and sacral excoriations due to the uncontrolled loose stools Imaging: CT abd/pelvis with IV contrast 07/17: Significant bowel wall thickening involving the colon, appearance most consistent with acute colitis, cannot exclude underlying neoplasm. Small to moderate ascites. Fatty infiltration of the liver. Heterogeneous appearance to hepatic parenchyma. Some of appearance may be due to transient hepatic attenuation differences, concern for underlying lesion. Meds: Cipro 400 IV daily--discontinued Flagyl 500 IV Q8--discontinued Endoscopy (07/28): small hiatal hernia, patchy mild inflammation in gastric antrum biopsies, scalloped mucosa found in duodenum, suspicious for celiac disease- biopsied Colonoscopy (07/28): internal hemorrhoids, mucosal nodule in the sigmoid colon, in transverse colon and in the ascending colon- biopsied Per Dr. South, he suspects pancreatic insufficiency as possible cause due to low stool pancreatic elastase and ordered an MRCP MRCP unable to be obtained due to patient restlessness Dr. South consulted Dr. Guerrero (help appreciated) for evaluation of possible chronic pancreatitis and possible EUS work up * Per Dr. Guerrero, pursue EUS as an outpatient for definitive diagnosis of chronic pancreatitis * Pancreatic enzymes were started with meals and Aldactone increased to 50 mg PO BID by GI team [place] [address] units TID with meals Alcohol abuse/alcohol intoxication/alcohol withdrawal Elevated serum alcohol on admission 292 Seizure and aspiration precautions Ativan 1mg q4h prn for agitation Thiamine 100 mg daily Folic acid 1 mg daily Psych consult, Dr. Man, help appreciated Hyponatremia Nephrology consult Dr. Middleton, help appreciated Unclear if hyponatremia is due to cirrhosis or hypovolemia from diuretics. Trial of holding John and lasix performed. f/u repeat labs, though patient refusing so far. Patient previously on trial of NS 100 cc/hr without improvement Hypertonic saline solution on 08/09/17--corrected sodium to 130 Per nephrology to hold diuretics, continue aldactone as allowed by BP Hypokalemia and Hypomagnesemia f/u and replete, though patient intermittently refuses labs including today 08/11 Anemia patient transfused 1 u PRBC on 07/20/17 Heme/onc consulted, Dr. Tran help appreciated stool occult blood negative Likely due from bone marrow suppression due to alcohol Tobacco use disorder Nicotine patch S/P Urinary Retention monitor urine output Elevated INR Vitamin K 5mg po daily for a total of 5 days (day 1 on 07/26, last dose to be given on 07/30) continue to monitor Prophylactic Measure/supportive care Pepcid 20mg po BID SCDs, Lovenox 40mg sc daily Simethicone 80mg po BID PT/OT Imodium prn Disposition: Patient with overall poor prognosis. Cirrhosis with ascites, severe pancreatic insufficiency. Palliative care consulted for goals of care. Patient estranged from . Will discuss case with Dr. Cristina Beth PGY-1 <Js Evans H - Last Filed: 08/13/17 11:57> Objective - Vital Signs/Intake and Output Vital Signs (last 24 hours): Temp Pulse Resp BP Pulse Ox 97.4 F L 104 H 20 100/45 L 100 08/13/17 09:24 08/13/17 09:24 08/13/17 09:24 08/13/17 09:24 08/13/17 09:24 Intake and Output: 08/13/17 08/13/17 06:59 18:59 Output Total 300 Balance -300 - Medications Medications: Current Medications Cholestyramine Resin (Questran) 4 gm PO BIDPC [facility] Last Admin: 08/13/17 09:22 Dose: 4 gm Folic Acid (Folic Acid) 1 mg PO DAILY [facility] Last Admin: 08/13/17 09:21 Dose: 1 mg Furosemide (Lasix) 40 mg PO DAILY [facility] Last Admin: 08/13/17 09:21 Dose: 40 mg Lactulose (Enulose) 10 gm PO BID [facility] Last Admin: 08/13/17 09:21 Dose: 10 gm Magnesium Oxide (Mag-Ox) 800 mg PO TID [facility] Last Admin: 08/01/17 14:47 Dose: Not Given Nicotine (Nicoderm Cq) 1 patch TD DAILY [facility] Last Admin: 08/13/17 09:22 Dose: 1 patch Pantoprazole Sodium (Protonix Ec Tab) 40 mg PO DAILY [facility] Last Admin: 08/13/17 09:21 Dose: 40 mg Petrolatum (Desitin Original) 1 gm TOP TID [facility] Last Admin: 08/12/17 18:29 Dose: 1 applic Rifaximin (Xifaxan) 550 mg PO BID [facility] Last Admin: 08/13/17 09:22 Dose: 550 mg Simethicone (Mylicon Chew Tab) 80 mg PO TID [facility] Last Admin: 08/13/17 09:21 Dose: 80 mg Sodium Bicarbonate (Sodium Bicarbonate Tab) 650 mg PO TID [facility] Sodium Chloride (Sodium Chloride Tab) 1 gm PO BID [facility] Last Admin: 08/13/17 09:22 Dose: 1 gm Spironolactone (Aldactone) 50 mg PO BID [facility] Last Admin: 08/13/17 09:20 Dose: 50 mg Thiamine HCl (Vitamin B1 Tab) 100 mg PO BID [facility] Last Admin: 08/13/17 09:21 Dose: 100 mg - Labs Labs: 08/13/17 08:37 08/13/17 08:37 PT 19.7 SECONDS (9.7-12.2) H 08/13/17 08:37 INR 1.7 08/13/17 08:37 APTT 34 SECONDS (21-34) 07/18/17 13:52 Attending/Attestation - Attestation I have personally seen and examined this patient.: Yes I have fully participated in the care of the patient.: Yes I have reviewed all pertinent clinical information, including history, physical exam and plan: Yes Notes (Text): 08/13/17 11:54 Medical attending: Patient was seen and examined by me as well. Agree with the above note by the resident The patient YESTERDAY - ammonia level decreased - was much more awake and alert and we were able to have a conversation with jewel to his CODE status. He said he understood that his prognosis was poor but that he wished to remain FULL Code at this time. Today when I saw him at noon time he was awake, however not as alert as yesterday. Overnight did spike a fever, checking blood, urine culture. If fever persist or returns he may need another paracentsis for culture of the ascities fluid. thank you Js Evans
[2017-08-13 08:43] LABS: BASO # 0.1 K/uL (0.0-0.2); EOS % 0.4 % (0.0-4.0); HEMOGLOBIN 8.1 g/dL (12.0-18.0); LYMPH # 1.9 K/uL (1.0-4.3); LYMPH % 16.6 % (20.0-40.0); MEAN CORPUSCULAR HEMOGLOBIN 30.3 pg (27.0-31.0); MEAN CORPUSCULAR HGB CONC 33.7 g/dL (33.0-37.0); MEAN PLATELET VOLUME 8.9 fL (7.2-11.7); MONO # 0.7 K/uL (0.0-0.8); MONO % 5.9 % (0.0-10.0); NEUT # 8.7 K/uL (1.8-7.0); NEUT % 76.1 % (50.0-75.0); NRBC % 0.1 % (0.0-2.0); RBC 2.67 Mil/uL (4.40-5.90); RED CELL DISTRIBUTION WIDTH 18.4 % (11.5-14.5); WHITE BLOOD COUNT 11.5 K/uL (4.8-10.8)
[2017-08-13 08:47] LABS: INR 1.7; PROTHROMBIN TIME 19.7 SECONDS (9.7-12.2)
[2017-08-13 09:11] LABS: ALB/GLOB RATIO 0.7 (1.0-2.1); ALBUMIN 2.5 g/dL (3.5-5.0); ALT/SGPT 46 U/L (21-72); AST/SGOT 114 U/L (17-59); BLOOD UREA NITROGEN 9 mg/dL (9-20); GFR AFRICAN-AMERICAN > 60; GFR NON-AFRICAN AMERICAN > 60; MAGNESIUM 1.7 mg/dL (1.6-2.3)
[2017-08-13] MEDS: Pantoprazole 40 mg EC Tab PO SCH (09:21)
[2017-08-13] MEDS: Simethicone 80 mg Chewtab PO SCH (09:21)
[2017-08-13] MEDS: Cholestyramine 4 gm/Pkt UD PO SCH ×2 (09:22→17:14)
[2017-08-13] MEDS: LIPASE/PROTEASE/AMYLASE 4,200 U ECC PO SCH ×3 (10:22→17:15)
[2017-08-13] MEDS: Zinc Oxide Topical 30 gm Tube TOP SCH ×3 (13:43→17:14)
--- NOTE | 2017-08-14 00:05 | CP.PCM.PN ---
<IgnaciaTima S - Last Filed: 08/14/17 07:25> Subjective - Date & Time of Evaluation Date of Evaluation: 08/14/17 Time of Evaluation: 05:40 - Subjective Subjective: Medicine progress note for Dr. Evans Patient seen and examined at bedside. Patient states that diarrhea is ongoing. Pain has improved slightly. Patient with intermittent cough. Objective - Vital Signs/Intake and Output Vital Signs (last 24 hours): Temp Pulse Resp BP Pulse Ox 98.8 F 121 H 22 103/67 98 08/13/17 18:00 08/13/17 16:00 08/13/17 16:00 08/13/17 16:00 08/13/17 16:00 Intake and Output: 08/13/17 08/14/17 18:59 06:59 Intake Total 400 400 Balance 400 400 - Medications Medications: Current Medications Cholestyramine Resin (Questran) 4 gm PO BIDPC [facility] Last Admin: 08/13/17 17:14 Dose: 4 gm Folic Acid (Folic Acid) 1 mg PO DAILY [facility] Last Admin: 08/13/17 09:21 Dose: 1 mg Furosemide (Lasix) 40 mg PO DAILY [facility] Last Admin: 08/13/17 09:21 Dose: 40 mg Lactulose (Enulose) 10 gm PO BID [facility] Last Admin: 08/13/17 17:13 Dose: 10 gm Magnesium Oxide (Mag-Ox) 800 mg PO TID [facility] Last Admin: 08/01/17 14:47 Dose: Not Given Nicotine (Nicoderm Cq) 1 patch TD DAILY [facility] Last Admin: 08/13/17 09:22 Dose: 1 patch Pantoprazole Sodium (Protonix Ec Tab) 40 mg PO DAILY [facility] Last Admin: 08/13/17 09:21 Dose: 40 mg Petrolatum (Desitin Original) 1 gm TOP TID [facility] Last Admin: 08/13/17 17:14 Dose: 1 applic Rifaximin (Xifaxan) 550 mg PO BID [facility] Last Admin: 08/13/17 17:15 Dose: 550 mg Sodium Bicarbonate (Sodium Bicarbonate Tab) 650 mg PO TID [facility] Last Admin: 08/13/17 21:34 Dose: 650 mg Sodium Chloride (Sodium Chloride Tab) 1 gm PO BID [facility] Last Admin: 08/13/17 17:15 Dose: 1 gm Spironolactone (Aldactone) 50 mg PO BID [facility] Last Admin: 08/13/17 17:13 Dose: 50 mg Thiamine HCl (Vitamin B1 Tab) 100 mg PO BID [facility] Last Admin: 08/13/17 17:13 Dose: 100 mg - Labs Labs: 08/13/17 08:37 08/13/17 08:37 PT 19.7 SECONDS (9.7-12.2) H 08/13/17 08:37 INR 1.7 08/13/17 08:37 APTT 34 SECONDS (21-34) 07/18/17 13:52 - Additional Findings Additional findings: - Constitutional Appears: No Acute Distress, Chronically Ill - Head Exam Head Exam: ATRAUMATIC, NORMAL INSPECTION - Eye Exam Eye Exam: EOMI, Normal appearance - ENT Exam ENT Exam: Mucous Membranes Moist - Respiratory Exam Respiratory Exam: Clear to Ausculation Bilateral, NORMAL BREATHING PATTERN - Cardiovascular Exam Cardiovascular Exam: REGULAR RHYTHM, +S1, +S2 - GI/Abdominal Exam GI & Abdominal Exam: Distended, Soft, Tenderness (diffuse), Normal Bowel Sounds - Neurological Exam Neurological Exam: Alert, Awake. absent: Oriented x3 (oriented to person and place but not time ) - Psychiatric Exam Psychiatric exam: Normal Affect, Normal Mood - Skin Skin Exam: Dry, Warm Assessment and Plan - Assessment and Plan (Free Text) Plan: Ascites and hepatic encephalopathy Consult GI, Dr South, help appreciated CT abd/pelvis shows small to moderate ascites Paracentesis done 07/19/17 with 2.1 L straw colored fluid removed. * peritoneal fluid no growth * Fluid WBC: 147, RBC: 216, neut: 41, lymph: 43, monocyte/macrophage: 15 Repeat paracentesis 08/04/17--4 Liters removed. Replenished with albumin 12.5 gm x2 doses Ammonia level on 08/09: 57--Xifaximin 550 mg PO BID restarted Lactulose 20 mg PO BID was added on 08/10 due to mental status. Colitis and Diarrhea No leukocytosis, afebrile giardia negative, stool ova and parasite negative, stool culture negative blood culture negative negative HIV and hep panel fecal fat study: normal c dif neg x 3 Desitin cream ordered for gluteal and sacral excoriations due to the uncontrolled loose stools Imaging: CT abd/pelvis with IV contrast 07/17: Significant bowel wall thickening involving the colon, appearance most consistent with acute colitis, cannot exclude underlying neoplasm. Small to moderate ascites. Fatty infiltration of the liver. Heterogeneous appearance to hepatic parenchyma. Some of appearance may be due to transient hepatic attenuation differences, concern for underlying lesion. Meds: Cipro 400 IV daily--discontinued Flagyl 500 IV Q8--discontinued Endoscopy (07/28): small hiatal hernia, patchy mild inflammation in gastric antrum biopsies, scalloped mucosa found in duodenum, suspicious for celiac disease- biopsied Colonoscopy (07/28): internal hemorrhoids, mucosal nodule in the sigmoid colon, in transverse colon and in the ascending colon- biopsied Per Dr. South, he suspects pancreatic insufficiency as possible cause due to low stool pancreatic elastase and ordered an MRCP MRCP unable to be obtained due to patient restlessness Dr. South consulted Dr. Guerrero (help appreciated) for evaluation of possible chronic pancreatitis and possible EUS work up * Per Dr. Guerrero, pursue EUS as an outpatient for definitive diagnosis of chronic pancreatitis * Pancreatic enzymes were started with meals and Aldactone increased to 50 mg PO BID by GI team [place] [address] units TID with meals Alcohol abuse/alcohol intoxication/alcohol withdrawal Elevated serum alcohol on admission 292 Seizure and aspiration precautions Ativan 1mg q4h prn for agitation Thiamine 100 mg daily Folic acid 1 mg daily Psych consult, Dr. Man, help appreciated Hyponatremia Nephrology consult Dr. Middleton, help appreciated Unclear if hyponatremia is due to cirrhosis or hypovolemia from diuretics. Trial of holding John and lasix performed. f/u repeat labs, though patient refusing so far. Patient previously on trial of NS 100 cc/hr without improvement Hypertonic saline solution on 08/09/17--corrected sodium to 130 Per nephrology to hold diuretics, continue aldactone as allowed by BP Hypokalemia and Hypomagnesemia f/u and replete, though patient intermittently refuses labs including today 08/11 Anemia patient transfused 1 u PRBC on 07/20/17 Heme/onc consulted, Dr. Tran help appreciated stool occult blood negative Likely due from bone marrow suppression due to alcohol Tobacco use disorder Nicotine patch S/P Urinary Retention monitor urine output Elevated INR Vitamin K 5mg po daily for a total of 5 days (day 1 on 07/26, last dose to be given on 07/30) continue to monitor Prophylactic Measure/supportive care Pepcid 20mg po BID SCDs, Lovenox 40mg sc daily Simethicone 80mg po BID PT/OT Imodium prn Disposition: Patient with overall poor prognosis. Cirrhosis with ascites, severe pancreatic insufficiency. Goals of care unclear at present time. Patient estranged from . Will discuss case with Dr. Cristina Beth PGY-1 <Js Evans H - Last Filed: 08/14/17 15:28> Objective - Vital Signs/Intake and Output Vital Signs (last 24 hours): Temp Pulse Resp BP Pulse Ox 97.2 F L 111 H 20 118/65 99 08/14/17 07:55 08/14/17 07:55 08/14/17 07:55 08/14/17 10:02 08/14/17 07:55 Intake and Output: 08/14/17 08/14/17 06:59 18:59 Intake Total 700 Balance 700 - Medications Medications: Current Medications Cholestyramine Resin (Questran) 4 gm PO BIDPC [facility] Last Admin: 08/14/17 10:00 Dose: 4 gm Folic Acid (Folic Acid) 1 mg PO DAILY [facility] Last Admin: 08/14/17 10:02 Dose: 1 mg Furosemide (Lasix) 40 mg PO DAILY [facility] Last Admin: 08/14/17 10:02 Dose: 40 mg Lactulose (Enulose) 10 gm PO BID [facility] Last Admin: 08/14/17 10:01 Dose: 10 gm Magnesium Oxide (Mag-Ox) 800 mg PO TID [facility] Last Admin: 08/01/17 14:47 Dose: Not Given Nicotine (Nicoderm Cq) 1 patch TD DAILY [facility] Last Admin: 08/14/17 10:00 Dose: 1 patch Pantoprazole Sodium (Protonix Ec Tab) 40 mg PO DAILY [facility] Last Admin: 08/14/17 10:02 Dose: 40 mg Petrolatum (Desitin Original) 1 gm TOP TID [facility] Last Admin: 08/14/17 10:04 Dose: 1 applic Rifaximin (Xifaxan) 550 mg PO BID [facility] Last Admin: 08/14/17 10:00 Dose: 550 mg Sodium Bicarbonate (Sodium Bicarbonate Tab) 650 mg PO TID [facility] Last Admin: 08/14/17 13:53 Dose: 650 mg Sodium Chloride (Sodium Chloride Tab) 1 gm PO BID [facility] Last Admin: 08/14/17 10:00 Dose: 1 gm Spironolactone (Aldactone) 50 mg PO BID [facility] Last Admin: 08/14/17 11:14 Dose: 50 mg Thiamine HCl (Vitamin B1 Tab) 100 mg PO BID [facility] Last Admin: 08/14/17 10:01 Dose: 100 mg - Labs Labs: 08/14/17 11:10 08/14/17 11:10 PT 20.5 SECONDS (9.7-12.2) H 08/14/17 11:10 INR 1.8 08/14/17 11:10 APTT 34 SECONDS (21-34) 07/18/17 13:52 Attending/Attestation - Attestation I have personally seen and examined this patient.: Yes I have fully participated in the care of the patient.: Yes I have reviewed all pertinent clinical information, including history, physical exam and plan: Yes Notes (Text): 08/14/17 15:25 Medical attending: Patient was seen and examined by me as well. Agree with the above note by the resident Today there was no change in the overall condition of the patient. He remained mostly in bed. On Tuesday he was very awake and alert and we were able to have a conversation with jewel to his CODE status. He said he understood that his prognosis was poor but that he wished to remain FULL Code at this time. He has not had a fever in almost 48 hrs. The blood cultures negative at this moment. If fever persist or returns he may need another paracentsis for culture of the ascities fluid. thank you Js Evans 08/14/17 15:27
[2017-08-14] MEDS: LIPASE/PROTEASE/AMYLASE 4,200 U ECC PO SCH ×3 (08:27→17:26)
[2017-08-14] MEDS: Cholestyramine 4 gm/Pkt UD PO SCH ×2 (10:00→17:26)
[2017-08-14] MEDS: Pantoprazole 40 mg EC Tab PO SCH (10:02)
[2017-08-14] MEDS: Zinc Oxide Topical 30 gm Tube TOP SCH ×3 (10:04→17:29)
[2017-08-14 11:17] LABS: BASO % 0.4 % (0.0-2.0); EOS # 0.1 K/uL (0.0-0.7); EOS % 0.5 % (0.0-4.0); HEMOGLOBIN 8.2 g/dL (12.0-18.0); LYMPH # 1.2 K/uL (1.0-4.3); LYMPH % 12.1 % (20.0-40.0); MEAN CELL VOLUME 88.5 fL (80.0-94.0); MEAN CORPUSCULAR HEMOGLOBIN 29.5 pg (27.0-31.0); MEAN CORPUSCULAR HGB CONC 33.3 g/dL (33.0-37.0); MEAN PLATELET VOLUME 9.1 fL (7.2-11.7); MONO # 0.7 K/uL (0.0-0.8); MONO % 6.6 % (0.0-10.0); NEUT # 8.2 K/uL (1.8-7.0); NEUT % 80.4 % (50.0-75.0); RBC 2.78 Mil/uL (4.40-5.90); RED CELL DISTRIBUTION WIDTH 18.1 % (11.5-14.5); WHITE BLOOD COUNT 10.3 K/uL (4.8-10.8)
[2017-08-14 11:38] LABS: INR 1.8; PROTHROMBIN TIME 20.5 SECONDS (9.7-12.2)
[2017-08-14 11:41] LABS: ALB/GLOB RATIO 0.7 (1.0-2.1); ALBUMIN 2.3 g/dL (3.5-5.0); ALT/SGPT 60 U/L (21-72); AST/SGOT 224 U/L (17-59); BLOOD UREA NITROGEN 13 mg/dL (9-20); CALCIUM 7.9 mg/dl (8.6-10.4); GFR AFRICAN-AMERICAN > 60; GFR NON-AFRICAN AMERICAN > 60; MAGNESIUM 1.5 mg/dL (1.6-2.3)
--- NOTE | 2017-08-14 14:27 | CP.PCM.PN ---
Subjective - Date & Time of Evaluation Date of Evaluation: 08/14/17 Time of Evaluation: 14:26 - Subjective Subjective: Follow up Nephrology Consultation Note Assessment: stable Hyponatremia multifactorial, due to diuretics and ongoing GI volume loss due to enterocolitis, ADH stimulation, chronic etoh Cirrhosis, smoker and Etoh abuse Hypomagnesemia Plan continue to hold diuretics. continue with aldactone as allowed by BP supplement electrolytes as needed avoid correction in serum Na >6-8 meq/24 hr. started NaCl tab 1 gram bid. continue with bicarb supplements glycemic control supplement electrolytes as needed. dose of mag sulphate 2 gram Iv today Further work up as per primary team Thanks for allowing me to participate in care of your patient. Will follow patient with you. Please call if any Qs. Dr Ciro Middleton Office: [phone] Subjective: Noted events overnight. Patients denies CP/palpitation/SOB. had loose stool Physical Examination: General Appearance: Comfortable, in no acute respiratory distress, co-operative . ill appearing Vitals reviewed and noted as below Head; Atraumatic, normocephalic ENT: no ulcers no thrush. Tongue is midline. Oropharynx: no rash or ulcers. EYES: Pupils are equal, round and reactive to light accommodation. Eye muscles and extraocular movement intact. Sclera is anicteric. Neck; supple no lymphadenopathy, no thyromegaly or bruit Lungs: Normal respiratory rate/effort. Breath sounds bilateral equal and clear Heart: normal rate. s1s2 normal. No rub or gallop. Extremities: no edema. No varicose veins Neurological: Patient is awake alert Skin: Warm and dry. Normal turgor. No rash. Palpitation: Normal elasticity for age Abdomen: Abdomen is soft. Bowel sounds +. There is mild abdominal tenderness, no guarding/rigidity no organomegaly. has ascites Psych: limited insight MSK: no joint tenderness or swelling. Digits and nails normal, no deformity : kidney or bladder not palpable Labs/imaging reviewed. Past medical history, past surgical history, family history, social history, allergy reviewed and noted as below Family hx: no hx of CKD. Rest non-contributory Imaging: enterocolitis and atrophic pancreas urine Na 43 and urine osmol 401 Objective - Vital Signs/Intake and Output Vital Signs (last 24 hours): Temp Pulse Resp BP Pulse Ox 97.2 F L 111 H 20 118/65 99 08/14/17 07:55 08/14/17 07:55 08/14/17 07:55 08/14/17 10:02 08/14/17 07:55 Intake and Output: 08/14/17 08/14/17 06:59 18:59 Intake Total 700 Balance 700 - Medications Medications: Current Medications Cholestyramine Resin (Questran) 4 gm PO BIDPC [facility] Last Admin: 08/14/17 10:00 Dose: 4 gm Folic Acid (Folic Acid) 1 mg PO DAILY [facility] Last Admin: 08/14/17 10:02 Dose: 1 mg Furosemide (Lasix) 40 mg PO DAILY [facility] Last Admin: 08/14/17 10:02 Dose: 40 mg Magnesium Sulfate/Dextrose (Magnesium Sulfate 1 Gm/100 Ml D5w) 1 gm in 100 mls @ 300 mls/hr IVPB Q30M [facility] Stop: 08/14/17 15:19 Lactulose (Enulose) 10 gm PO BID [facility] Last Admin: 08/14/17 10:01 Dose: 10 gm Magnesium Oxide (Mag-Ox) 800 mg PO TID [facility] Last Admin: 08/01/17 14:47 Dose: Not Given Nicotine (Nicoderm Cq) 1 patch TD DAILY [facility] Last Admin: 08/14/17 10:00 Dose: 1 patch Pantoprazole Sodium (Protonix Ec Tab) 40 mg PO DAILY [facility] Last Admin: 08/14/17 10:02 Dose: 40 mg Petrolatum (Desitin Original) 1 gm TOP TID [facility] Last Admin: 08/14/17 10:04 Dose: 1 applic Rifaximin (Xifaxan) 550 mg PO BID [facility] Last Admin: 08/14/17 10:00 Dose: 550 mg Sodium Bicarbonate (Sodium Bicarbonate Tab) 650 mg PO TID [facility] Last Admin: 08/14/17 13:53 Dose: 650 mg Sodium Chloride (Sodium Chloride Tab) 1 gm PO BID [facility] Last Admin: 08/14/17 10:00 Dose: 1 gm Spironolactone (Aldactone) 50 mg PO BID [facility] Last Admin: 08/14/17 11:14 Dose: 50 mg Thiamine HCl (Vitamin B1 Tab) 100 mg PO BID [facility] Last Admin: 08/14/17 10:01 Dose: 100 mg - Labs Labs: 08/14/17 11:10 08/14/17 11:10 PT 20.5 SECONDS (9.7-12.2) H 08/14/17 11:10 INR 1.8 08/14/17 11:10 APTT 34 SECONDS (21-34) 07/18/17 13:52
[2017-08-14] MEDS: Magnesium Sulfate 1 gm in D5W 1 GM/100 ML BAG IVPB SCH ×2 (14:46→14:55)
--- NOTE | 2017-08-15 07:30 | CP.PCM.PN ---
Subjective - Date & Time of Evaluation Date of Evaluation: 08/15/17 Time of Evaluation: 07:20 - Subjective Subjective: Medicine progress note for Dr. Tony Patient seen and examined at bedside. Patient states that diarrhea is ongoing. Per nursing staff, he had two episodes overnight. Abdominal pain has improved slightly. Objective - Vital Signs/Intake and Output Vital Signs (last 24 hours): Temp Pulse Resp BP Pulse Ox 99.9 F H 89 20 98/64 L 97 08/15/17 04:32 08/15/17 04:32 08/15/17 04:32 08/15/17 04:32 08/15/17 04:32 Intake and Output: 08/15/17 08/15/17 06:59 18:59 Intake Total 410 Output Total 500 Balance -90 - Medications Medications: Current Medications Cholestyramine Resin (Questran) 4 gm PO BIDPC [facility] Last Admin: 08/14/17 17:26 Dose: 4 gm Folic Acid (Folic Acid) 1 mg PO DAILY [facility] Last Admin: 08/14/17 10:02 Dose: 1 mg Furosemide (Lasix) 40 mg PO DAILY [facility] Last Admin: 08/14/17 10:02 Dose: 40 mg Lactulose (Enulose) 10 gm PO BID [facility] Last Admin: 08/14/17 17:25 Dose: 10 gm Magnesium Oxide (Mag-Ox) 800 mg PO TID [facility] Last Admin: 08/01/17 14:47 Dose: Not Given Nicotine (Nicoderm Cq) 1 patch TD DAILY [facility] Last Admin: 08/14/17 10:00 Dose: 1 patch Pantoprazole Sodium (Protonix Ec Tab) 40 mg PO DAILY [facility] Last Admin: 08/14/17 10:02 Dose: 40 mg Petrolatum (Desitin Original) 1 gm TOP TID [facility] Last Admin: 08/14/17 17:29 Dose: 1 applic Rifaximin (Xifaxan) 550 mg PO BID [facility] Last Admin: 08/14/17 17:26 Dose: 550 mg Sodium Bicarbonate (Sodium Bicarbonate Tab) 650 mg PO TID [facility] Last Admin: 08/14/17 17:25 Dose: 650 mg Sodium Chloride (Sodium Chloride Tab) 1 gm PO BID [facility] Last Admin: 08/14/17 17:26 Dose: 1 gm Spironolactone (Aldactone) 50 mg PO BID [facility] Last Admin: 08/14/17 17:26 Dose: 50 mg Thiamine HCl (Vitamin B1 Tab) 100 mg PO BID [facility] Last Admin: 08/14/17 17:25 Dose: 100 mg - Labs Labs: 08/14/17 11:10 08/14/17 11:10 PT 20.5 SECONDS (9.7-12.2) H 08/14/17 11:10 INR 1.8 08/14/17 11:10 APTT 34 SECONDS (21-34) 07/18/17 13:52 - Additional Findings Additional findings: - Constitutional Appears: No Acute Distress, Chronically Ill - Head Exam Head Exam: ATRAUMATIC, NORMAL INSPECTION - Eye Exam Eye Exam: EOMI, Normal appearance - ENT Exam ENT Exam: Mucous Membranes Moist - Respiratory Exam Respiratory Exam: Clear to Ausculation Bilateral, NORMAL BREATHING PATTERN - Cardiovascular Exam Cardiovascular Exam: REGULAR RHYTHM, +S1, +S2 - GI/Abdominal Exam GI & Abdominal Exam: Distended, Soft, Tenderness (diffuse), Normal Bowel Sounds - Neurological Exam Neurological Exam: Alert, Awake, Oriented x3 - Psychiatric Exam Psychiatric exam: Normal Affect, Normal Mood - Skin Skin Exam: Dry, Warm Assessment and Plan - Assessment and Plan (Free Text) Plan: Ascites and hepatic encephalopathy Consult GI, Dr South, help appreciated CT abd/pelvis shows small to moderate ascites Paracentesis done 07/19/17 with 2.1 L straw colored fluid removed. * peritoneal fluid no growth * Fluid WBC: 147, RBC: 216, neut: 41, lymph: 43, monocyte/macrophage: 15 Repeat paracentesis 08/04/17--4 Liters removed. Replenished with albumin 12.5 gm x2 doses Ammonia level on 08/09: 57--Xifaximin 550 mg PO BID restarted Lactulose 10 mg PO BID with holding parameters in nursing communication to hold if more than 2 consecutive loose stool episodes. Fever, working diagnosis SBP Rocephin 1 gm daily empirically started on 08/15/17 Paracentesis ordered with fluid studies Colitis and Diarrhea No leukocytosis, afebrile giardia negative, stool ova and parasite negative, stool culture negative blood culture negative negative HIV and hep panel fecal fat study: normal c dif neg x 3 Desitin cream ordered for gluteal and sacral excoriations due to the uncontrolled loose stools. Excoriations improved. Imaging: CT abd/pelvis with IV contrast 07/17: Significant bowel wall thickening involving the colon, appearance most consistent with acute colitis, cannot exclude underlying neoplasm. Small to moderate ascites. Fatty infiltration of the liver. Heterogeneous appearance to hepatic parenchyma. Some of appearance may be due to transient hepatic attenuation differences, concern for underlying lesion. Meds: Cipro 400 IV daily--discontinued Flagyl 500 IV Q8--discontinued Endoscopy (07/28): small hiatal hernia, patchy mild inflammation in gastric antrum biopsies, scalloped mucosa found in duodenum, suspicious for celiac disease- biopsied Colonoscopy (07/28): internal hemorrhoids, mucosal nodule in the sigmoid colon, in transverse colon and in the ascending colon- biopsied Per Dr. South, he suspects pancreatic insufficiency as possible cause due to low stool pancreatic elastase and ordered an MRCP MRCP unable to be obtained due to patient restlessness Dr. South consulted Dr. Guerrero (help appreciated) for evaluation of possible chronic pancreatitis and possible EUS work up * Per Dr. Guerrero, pursue EUS as an outpatient for definitive diagnosis of chronic pancreatitis * Pancreatic enzymes were started with meals and Aldactone increased to 50 mg PO BID by GI team [place] [address] units TID with meals Alcohol abuse/alcohol intoxication/alcohol withdrawal Elevated serum alcohol on admission 292 Seizure and aspiration precautions Ativan 1mg q4h prn for agitation Thiamine 100 mg daily Folic acid 1 mg daily Psych consult, Dr. Man, help appreciated. Detox completed. Hyponatremia Nephrology consult Dr. Middleton, help appreciated Unclear if hyponatremia is due to cirrhosis or hypovolemia from diuretics. Patient previously on trial of NS 100 cc/hr without improvement Hypertonic saline solution on 08/09/17--corrected sodium to 130 Per nephrology to hold diuretics, continue aldactone as allowed by BP Per nephro, NaCL tab 1 gm BID and sodium bicarb supplement 1300 mg PO BID started on 08/15/17 Hypokalemia and Hypomagnesemia f/u and replete Patient intermittently refuses labs Magnesium Sulfate 2 bags were given today Anemia patient transfused 1 u PRBC on 07/20/17 Heme/onc consulted, Dr. Tran help appreciated stool occult blood negative Likely due from bone marrow suppression due to alcohol Tobacco use disorder Nicotine patch S/P Urinary Retention monitor urine output Elevated INR Vitamin K 5mg po daily for a total of 5 days (day 1 on 07/26, last dose to be given on 07/30) continue to monitor Prophylactic Measure/supportive care Pepcid 20mg po BID SCDs, Lovenox 40mg sc daily Simethicone 80mg po BID PT/OT Imodium prn Disposition: Patient with overall poor prognosis. Cirrhosis with ascites, severe pancreatic insufficiency. Goals of care unclear at present time. Patient estranged from . Case DW Dr. Chavo Beth PGY-1
[2017-08-15 07:43] LABS: INR 1.7; PROTHROMBIN TIME 19.4 SECONDS (9.7-12.2)
[2017-08-15 08:01] LABS: BASO # 0.1 K/uL (0.0-0.2); BASO % 0.8 % (0.0-2.0); EOS % 0.3 % (0.0-4.0); HEMOGLOBIN 7.3 g/dL (12.0-18.0); LYMPH % 22.9 % (20.0-40.0); MEAN CELL VOLUME 87.3 fL (80.0-94.0); MEAN CORPUSCULAR HEMOGLOBIN 29.6 pg (27.0-31.0); MEAN CORPUSCULAR HGB CONC 33.9 g/dL (33.0-37.0); MEAN PLATELET VOLUME 9.4 fL (7.2-11.7); MONO # 0.7 K/uL (0.0-0.8); MONO % 7.9 % (0.0-10.0); NEUT % 68.1 % (50.0-75.0); NRBC % 0.1 % (0.0-2.0); RBC 2.48 Mil/uL (4.40-5.90); RED CELL DISTRIBUTION WIDTH 17.7 % (11.5-14.5); WHITE BLOOD COUNT 8.8 K/uL (4.8-10.8)
[2017-08-15] MEDS: LIPASE/PROTEASE/AMYLASE 4,200 U ECC PO SCH ×3 (08:30→17:45)
[2017-08-15 08:54] LABS: ALB/GLOB RATIO 0.6 (1.0-2.1); ALBUMIN 2.1 g/dL (3.5-5.0); ALT/SGPT 47 U/L (21-72); AST/SGOT 177 U/L (17-59); BLOOD UREA NITROGEN 13 mg/dL (9-20); CALCIUM 7.6 mg/dl (8.6-10.4); GFR AFRICAN-AMERICAN > 60; GFR NON-AFRICAN AMERICAN > 60; MAGNESIUM 1.7 mg/dL (1.6-2.3)
[2017-08-15] MEDS: Pantoprazole 40 mg EC Tab PO SCH (09:50)
[2017-08-15] MEDS: Cholestyramine 4 gm/Pkt UD PO SCH ×3 (09:50→17:52)
[2017-08-15] MEDS: Zinc Oxide Topical 30 gm Tube TOP SCH ×3 (09:51→17:54)
[2017-08-15] MEDS: Magnesium Sulfate 1 gm in D5W 1 GM/100 ML BAG IVPB SCH ×2 (11:59→13:00)
--- NOTE | 2017-08-15 15:06 | PCM.SURG1 ---
Surgeon's Initial Post Op Note - Surgeon's Notes Surgeon: Luis Carlos Doshi MD Supervisor Cytogenetic Laboratory: NONE Type of Anesthesia: Local Pre-Operative Diagnosis: Ascites, SBP Operative Findings: US showed small amount ascites Post-Operative Diagnosis: Ascites Operation Performed: US guided paracentesis Specimen/Specimens Removed: 2.5 liters of straw colored fluid Estimated Blood Loss: EBL {In ML}: 1 Blood Products Given: N/A Drains Used: No Drains Post-Op Condition: Fair Date of Surgery/Procedure: 08/15/17 Time of Surgery/Procedure: 15:05
[2017-08-15 15:27] LABS: BODY FLUID TYPE PERITONEAL/ASCITES
--- NOTE | 2017-08-15 15:44 | CP.PCM.PN ---
Subjective - Date & Time of Evaluation Date of Evaluation: 08/15/17 Time of Evaluation: 11:00 - Subjective Subjective: Follow up Nephrology Consultation Note Assessment: stable Hyponatremia multifactorial, due to diuretics and ongoing GI volume loss due to enterocolitis, ADH stimulation, chronic etoh Cirrhosis, smoker and Etoh abuse Hypomagnesemia Plan continue to hold diuretics. continue with aldactone as allowed by BP supplement electrolytes as needed avoid correction in serum Na >6-8 meq/24 hr. started NaCl tab 1 gram bid. continue with bicarb supplements glycemic control supplement electrolytes as needed. dose of mag sulphate 2 gram Iv today Further work up as per primary team Thanks for allowing me to participate in care of your patient. Will follow patient with you. Please call if any Qs. Dr Ciro Middleton Office: [phone] Subjective: Noted events overnight. Patients denies CP/palpitation/SOB. had loose stool Physical Examination: General Appearance: Comfortable, in no acute respiratory distress, co-operative . ill appearing Vitals reviewed and noted as below Head; Atraumatic, normocephalic ENT: no ulcers no thrush. Tongue is midline. Oropharynx: no rash or ulcers. EYES: Pupils are equal, round and reactive to light accommodation. Eye muscles and extraocular movement intact. Sclera is anicteric. Neck; supple no lymphadenopathy, no thyromegaly or bruit Lungs: Normal respiratory rate/effort. Breath sounds bilateral equal and clear Heart: normal rate. s1s2 normal. No rub or gallop. Extremities: no edema. No varicose veins Neurological: Patient is awake alert Skin: Warm and dry. Normal turgor. No rash. Palpitation: Normal elasticity for age Abdomen: Abdomen is soft. Bowel sounds +. There is mild abdominal tenderness, no guarding/rigidity no organomegaly. has ascites Psych: limited insight MSK: no joint tenderness or swelling. Digits and nails normal, no deformity : kidney or bladder not palpable Labs/imaging reviewed. Past medical history, past surgical history, family history, social history, allergy reviewed and noted as below Family hx: no hx of CKD. Rest non-contributory Imaging: enterocolitis and atrophic pancreas urine Na 43 and urine osmol 401 Objective - Vital Signs/Intake and Output Vital Signs (last 24 hours): Temp Pulse Resp BP Pulse Ox 98.7 F 82 18 101/62 99 01/29/18 15:36 08/15/17 15:36 08/15/17 15:36 08/15/17 15:36 08/15/17 15:36 Intake and Output: 08/15/17 08/15/17 06:59 18:59 Intake Total 410 Output Total 500 Balance -90 - Medications Medications: Current Medications Cholestyramine Resin (Questran) 4 gm PO TIDPC [facility] Last Admin: 08/15/17 13:43 Dose: 4 gm Folic Acid (Folic Acid) 1 mg PO DAILY [facility] Last Admin: 08/15/17 09:50 Dose: 1 mg Ceftriaxone Sodium 1 gm/ (Sodium Chloride) 100 mls @ 100 mls/hr IVPB Q24H [facility] Lactulose (Enulose) 10 gm PO BID [facility] Last Admin: 08/15/17 09:51 Dose: 10 gm Nicotine (Nicoderm Cq) 1 patch TD DAILY [facility] Last Admin: 08/15/17 09:52 Dose: 1 patch Pantoprazole Sodium (Protonix Ec Tab) 40 mg PO DAILY [facility] Last Admin: 08/15/17 09:50 Dose: 40 mg Petrolatum (Desitin Original) 1 gm TOP TID [facility] Last Admin: 08/15/17 13:39 Dose: 1 applic Rifaximin (Xifaxan) 550 mg PO BID [facility] Last Admin: 08/15/17 09:50 Dose: 550 mg Sodium Bicarbonate (Sodium Bicarbonate Tab) 1,300 mg PO TID [facility] Last Admin: 08/15/17 13:41 Dose: 1,300 mg Sodium Chloride (Sodium Chloride Tab) 1 gm PO BID [facility] Last Admin: 08/15/17 09:52 Dose: 1 gm Spironolactone (Aldactone) 50 mg PO BID [facility] Last Admin: 08/15/17 09:50 Dose: Not Given Thiamine HCl (Vitamin B1 Tab) 100 mg PO BID [facility] Last Admin: 08/15/17 09:53 Dose: 100 mg - Labs Labs: 08/15/17 07:30 08/15/17 07:30 PT 19.4 SECONDS (9.7-12.2) H 08/15/17 07:30 INR 1.7 08/15/17 07:30 APTT 34 SECONDS (21-34) 07/18/17 13:52
[2017-08-15 16:07] LABS: BF GROSS APPEARANCE SL CLOUDY (CLEAR); BODY FLUID MONO/MACROPHAGE 7 % (0-0); BODY FLUID TOTAL COUNT 100 (0-0)
[2017-08-16 07:23] LABS: INR 1.6; PROTHROMBIN TIME 17.9 SECONDS (9.7-12.2)
[2017-08-16 07:24] LABS: BASO # 0.1 K/uL (0.0-0.2); BASO % 0.8 % (0.0-2.0); EOS # 0.1 K/uL (0.0-0.7); EOS % 0.8 % (0.0-4.0); HEMOGLOBIN 8.6 g/dL (12.0-18.0); LYMPH # 2.1 K/uL (1.0-4.3); LYMPH % 25.1 % (20.0-40.0); MEAN CORPUSCULAR HEMOGLOBIN 29.9 pg (27.0-31.0); MEAN PLATELET VOLUME 8.8 fL (7.2-11.7); MONO # 0.6 K/uL (0.0-0.8); MONO % 6.9 % (0.0-10.0); NEUT # 5.6 K/uL (1.8-7.0); NEUT % 66.4 % (50.0-75.0); NRBC % 0.1 % (0.0-2.0); RBC 2.89 Mil/uL (4.40-5.90); RED CELL DISTRIBUTION WIDTH 17.8 % (11.5-14.5); WHITE BLOOD COUNT 8.4 K/uL (4.8-10.8)
--- NOTE | 2017-08-16 07:24 | CP.PCM.PN ---
Subjective - Date & Time of Evaluation Date of Evaluation: 08/16/17 Time of Evaluation: 07:40 - Subjective Subjective: Medicine progress note for Dr. Tony Patient seen and examined at bedside. Patient is s/p day 1 of paracentesis where 2.5 liters of straw colored fluid were drained. Patient still has diarrhea but stools are starting to become more formed. Objective - Vital Signs/Intake and Output Vital Signs (last 24 hours): Temp Pulse Resp BP Pulse Ox 98 F 89 20 99/62 L 97 08/15/17 23:55 08/15/17 23:55 08/15/17 23:55 08/15/17 23:55 08/15/17 23:55 Intake and Output: 08/16/17 08/16/17 06:59 18:59 Intake Total 350 Balance 350 - Medications Medications: Current Medications Cholestyramine Resin (Questran) 4 gm PO TIDPC [facility] Last Admin: 08/15/17 17:52 Dose: 4 gm Folic Acid (Folic Acid) 1 mg PO DAILY [facility] Last Admin: 08/15/17 09:50 Dose: 1 mg Ceftriaxone Sodium 1 gm/ (Sodium Chloride) 100 mls @ 100 mls/hr IVPB Q24H [facility] Last Admin: 08/15/17 17:47 Dose: 100 mls/hr Lactulose (Enulose) 10 gm PO BID [facility] Last Admin: 08/15/17 17:45 Dose: 10 gm Nicotine (Nicoderm Cq) 1 patch TD DAILY [facility] Last Admin: 08/15/17 09:52 Dose: 1 patch Pantoprazole Sodium (Protonix Ec Tab) 40 mg PO DAILY [facility] Last Admin: 08/15/17 09:50 Dose: 40 mg Petrolatum (Desitin Original) 1 gm TOP TID [facility] Last Admin: 08/15/17 17:54 Dose: 1 applic Rifaximin (Xifaxan) 550 mg PO BID [facility] Last Admin: 08/15/17 17:46 Dose: 550 mg Sodium Bicarbonate (Sodium Bicarbonate Tab) 1,300 mg PO TID [facility] Last Admin: 08/15/17 17:46 Dose: 1,300 mg Sodium Chloride (Sodium Chloride Tab) 1 gm PO BID [facility] Last Admin: 08/15/17 17:47 Dose: 1 gm Spironolactone (Aldactone) 50 mg PO BID [facility] Last Admin: 08/15/17 17:55 Dose: 50 mg Thiamine HCl (Vitamin B1 Tab) 100 mg PO BID [facility] Last Admin: 08/15/17 17:53 Dose: 100 mg - Labs Labs: 08/15/17 07:30 08/15/17 07:30 PT 19.4 SECONDS (9.7-12.2) H 08/15/17 07:30 INR 1.7 08/15/17 07:30 APTT 34 SECONDS (21-34) 07/18/17 13:52 - Additional Findings Additional findings: - Constitutional Appears: No Acute Distress, Chronically Ill - Head Exam Head Exam: ATRAUMATIC, NORMAL INSPECTION - Eye Exam Eye Exam: EOMI, Normal appearance - ENT Exam ENT Exam: Mucous Membranes Moist - Respiratory Exam Respiratory Exam: Clear to Ausculation Bilateral, NORMAL BREATHING PATTERN, Wheezing - Cardiovascular Exam Cardiovascular Exam: REGULAR RHYTHM, +S1, +S2 - GI/Abdominal Exam GI & Abdominal Exam: Distended (much improved after paracentesis), Soft, Tenderness (diffuse), Normal Bowel Sounds - Neurological Exam Neurological Exam: Alert, Awake, Oriented x3 - Psychiatric Exam Psychiatric exam: Normal Affect, Normal Mood - Skin Skin Exam: Dry, Warm Assessment and Plan - Assessment and Plan (Free Text) Plan: Ascites and hepatic encephalopathy Consult GI, Dr South, help appreciated CT abd/pelvis shows small to moderate ascites Paracentesis done 07/19/17 with 2.1 L straw colored fluid removed. * peritoneal fluid no growth * Fluid WBC: 147, RBC: 216, neut: 41, lymph: 43, monocyte/macrophage: 15 Repeat paracentesis 08/04/17--4 Liters removed. Replenished with albumin 12.5 gm x2 doses Ammonia level on 08/09: 57--Xifaximin 550 mg PO BID restarted Lactulose 10 mg PO BID with holding parameters in nursing communication to hold if more than 2 consecutive loose stool episodes. Fever, working diagnosis SBP though unlikely due to fluid WBCs Rocephin 1 gm daily empirically started on 08/15/17. Likely not SBP but will treat for total of 3 days Paracentesis 08/16/17--2.5 liters of straw colored fluid f/u fluid studies Colitis and Diarrhea No leukocytosis, afebrile giardia negative, stool ova and parasite negative, stool culture negative blood culture negative negative HIV and hep panel fecal fat study: normal c dif neg x 3 Desitin cream ordered for gluteal and sacral excoriations due to the uncontrolled loose stools. Excoriations improved. Imaging: CT abd/pelvis with IV contrast 07/17: Significant bowel wall thickening involving the colon, appearance most consistent with acute colitis, cannot exclude underlying neoplasm. Small to moderate ascites. Fatty infiltration of the liver. Heterogeneous appearance to hepatic parenchyma. Some of appearance may be due to transient hepatic attenuation differences, concern for underlying lesion. Meds: Cipro 400 IV daily--discontinued Flagyl 500 IV Q8--discontinued Endoscopy (07/28): small hiatal hernia, patchy mild inflammation in gastric antrum biopsies, scalloped mucosa found in duodenum, suspicious for celiac disease- biopsied Colonoscopy (07/28): internal hemorrhoids, mucosal nodule in the sigmoid colon, in transverse colon and in the ascending colon- biopsied Per Dr. South, he suspects pancreatic insufficiency as possible cause due to low stool pancreatic elastase and ordered an MRCP MRCP unable to be obtained due to patient restlessness Dr. South consulted Dr. Guerrero (help appreciated) for evaluation of possible chronic pancreatitis and possible EUS work up * Per Dr. Guerrero, pursue EUS as an outpatient for definitive diagnosis of chronic pancreatitis * Pancreatic enzymes were started with meals and Aldactone increased to 50 mg PO BID by GI team [place] [address] units TID with meals Alcohol abuse/alcohol intoxication/alcohol withdrawal Elevated serum alcohol on admission 292 Seizure and aspiration precautions Ativan 1mg q4h prn for agitation Thiamine 100 mg daily Folic acid 1 mg daily Psych consult, Dr. Man, help appreciated. Detox completed. Hyponatremia Nephrology consult Dr. Middleton, help appreciated Unclear if hyponatremia is due to cirrhosis or hypovolemia from diuretics. Patient previously on trial of NS 100 cc/hr without improvement Hypertonic saline solution on 08/09/17--corrected sodium to 130 Per nephrology to hold diuretics, continue aldactone as allowed by BP Per nephro, NaCL tab 1 gm BID and sodium bicarb supplement 1300 mg PO BID started on 08/15/17 Hypokalemia and Hypomagnesemia f/u and replete Patient intermittently refuses labs Magnesium Sulfate 2 bags were given today Anemia patient transfused 1 u PRBC on 07/20/17 Heme/onc consulted, Dr. Tran help appreciated stool occult blood negative Likely due from bone marrow suppression due to alcohol Tobacco use disorder Nicotine patch S/P Urinary Retention monitor urine output Elevated INR Vitamin K 5mg po daily for a total of 5 days (day 1 on 07/26, last dose to be given on 07/30) continue to monitor Prophylactic Measure/supportive care Pepcid 20mg po BID SCDs, Lovenox 40mg sc daily Simethicone 80mg po BID PT/OT Imodium prn Disposition: Patient with overall poor prognosis. Cirrhosis with ascites, severe pancreatic insufficiency. Goals of care unclear at present time. Patient estranged from . Case DW Dr. Chavo Beth PGY-1
[2017-08-16 07:39] LABS: ALB/GLOB RATIO 0.6 (1.0-2.1); ALBUMIN 2.2 g/dL (3.5-5.0); ALT/SGPT 49 U/L (21-72); AST/SGOT 148 U/L (17-59); BLOOD UREA NITROGEN 11 mg/dL (9-20); CALCIUM 7.5 mg/dl (8.6-10.4); GFR AFRICAN-AMERICAN > 60; GFR NON-AFRICAN AMERICAN > 60; MAGNESIUM 1.7 mg/dL (1.6-2.3)
[2017-08-16] MEDS: LIPASE/PROTEASE/AMYLASE 4,200 U ECC PO SCH ×3 (08:18→17:34)
[2017-08-16] MEDS: Pantoprazole 40 mg EC Tab PO SCH (09:39)
[2017-08-16] MEDS: Cholestyramine 4 gm/Pkt UD PO SCH ×3 (09:40→17:36)
[2017-08-16] MEDS: Zinc Oxide Topical 30 gm Tube TOP SCH ×3 (09:41→17:42)
--- NOTE | 2017-08-16 11:23 | US ---
Date of Procedure: 08/16/2017 PROCEDURE: Ultrasound-guided paracentesis, CPT 05339 Medications: 7 cc 1% Lidocaine HISTORY: Ascites, abdominal pain, cirrhosis TECHNIQUE: Following informed consent , the patient was placed supine on the stretcher and the site was marked. A limited abdominal ultrasound was performed that showed a large amount of intra-abdominal fluid. Procedural time out was called and the Pt's abdomen was marked and prepped and draped in the usual sterile fashion. Ultrasound-guided large volume paracentesis performed. A total of 2.4 liters of straw colored fluid was removed without complication. Fluid specimen was sent for culture, sensitivity, cytology and chemistries. IMPRESSION: Ultrasound-guided large volume paracentesis.
--- NOTE | 2017-08-16 11:51 | CP.PCM.PN ---
Subjective - Date & Time of Evaluation Date of Evaluation: 08/16/17 Time of Evaluation: 10:00 - Subjective Subjective: Patient sitting up in the chair Awake and conscious Appear to be chronically ill and debilitated Objective - Vital Signs/Intake and Output Vital Signs (last 24 hours): Temp Pulse Resp BP Pulse Ox 99.1 F 81 20 102/68 99 08/16/17 08:02 08/16/17 08:02 08/16/17 08:02 08/16/17 08:02 08/16/17 08:02 Intake and Output: 08/16/17 08/16/17 06:59 18:59 Intake Total 350 Output Total 200 Balance 350 -200 - Medications Medications: Current Medications Albuterol/Ipratropium (Duoneb 3 Mg/0.5 Mg (3 Ml) Ud) 3 ml INH RBID [facility] Cholestyramine Resin (Questran) 4 gm PO TIDPC [facility] Last Admin: 08/16/17 09:40 Dose: 4 gm Folic Acid (Folic Acid) 1 mg PO DAILY [facility] Last Admin: 08/16/17 09:39 Dose: 1 mg Ceftriaxone Sodium 1 gm/ (Sodium Chloride) 100 mls @ 100 mls/hr IVPB Q24H [facility] Last Admin: 08/15/17 17:47 Dose: 100 mls/hr Lactulose (Enulose) 10 gm PO BID [facility] Last Admin: 08/16/17 09:39 Dose: 10 gm Nicotine (Nicoderm Cq) 1 patch TD DAILY [facility] Last Admin: 08/16/17 09:40 Dose: 1 patch Pantoprazole Sodium (Protonix Ec Tab) 40 mg PO DAILY [facility] Last Admin: 08/16/17 09:39 Dose: 40 mg Petrolatum (Desitin Original) 1 gm TOP TID [facility] Last Admin: 08/16/17 09:41 Dose: 1 applic Rifaximin (Xifaxan) 550 mg PO BID [facility] Last Admin: 08/16/17 09:40 Dose: 550 mg Sodium Bicarbonate (Sodium Bicarbonate Tab) 1,300 mg PO TID [facility] Last Admin: 08/16/17 09:39 Dose: 1,300 mg Sodium Chloride (Sodium Chloride Tab) 1 gm PO BID [facility] Last Admin: 08/16/17 09:40 Dose: 1 gm Spironolactone (Aldactone) 50 mg PO BID [facility] Last Admin: 08/16/17 09:40 Dose: 50 mg Thiamine HCl (Vitamin B1 Tab) 100 mg PO BID [facility] Last Admin: 08/15/17 17:53 Dose: 100 mg - Labs Labs: 08/16/17 07:11 08/16/17 07:11 PT 17.9 SECONDS (9.7-12.2) H 08/16/17 07:11 INR 1.6 08/16/17 07:11 APTT 34 SECONDS (21-34) 07/18/17 13:52 - Constitutional Appears: No Acute Distress - ENT Exam ENT Exam: Mucous Membranes Moist - Neck Exam Neck Exam: absent: Lymphadenopathy - Respiratory Exam Respiratory Exam: NORMAL BREATHING PATTERN - Cardiovascular Exam Cardiovascular Exam: absent: JVD, Rubs - GI/Abdominal Exam GI & Abdominal Exam: Soft, Normal Bowel Sounds - Extremities Exam Extremities Exam: absent: Calf Tenderness - Back Exam Back Exam: absent: CVA tenderness (L), CVA tenderness (R) - Neurological Exam Neurological Exam: Alert Assessment and Plan (1) Hyponatremia Assessment & Plan: Patient with multiple medical problems including liver cirrhosis debilitating and history of alcoholism. Hyponatremia has been improving somewhat at 130 I believe patient may benefit from Tolvaptan if sodium is not going up any higher. Hypomagnesemia has been corrected the last magnesium 1.7 although he may need continuation of supplement. Continue monitoring Status: Acute
[2017-08-16] MEDS: Albuterol-Ipratrop 3 mg / 0.5 (3 ml) UD INH SCH ×2 (13:15→19:13)
[2017-08-16 13:36] LABS: LIPASE 123 U/L (23-300)
[2017-08-16] MEDS: Magnesium Sulfate 1 gm in D5W 1 GM/100 ML BAG IVPB SCH ×3 (22:46→23:14)
--- NOTE | 2017-08-17 07:07 | CP.PCM.PN ---
<Tima Beth - Last Filed: 08/17/17 17:29> Subjective - Date & Time of Evaluation Date of Evaluation: 08/17/17 Time of Evaluation: 07:10 - Subjective Subjective: Medicine progress note for Dr. Huitron Patient seen and examined. Patient states that he has ongoing diarrhea and abdominal pain. Per nursing staff, his stools are now becoming more formed. He is more awake and alert today. Objective - Vital Signs/Intake and Output Vital Signs (last 24 hours): Temp Pulse Resp BP Pulse Ox 98.2 F 79 20 98/68 L 96 08/16/17 23:45 08/16/17 23:45 08/16/17 23:45 08/16/17 23:45 08/16/17 23:45 - Medications Medications: Current Medications Albuterol/Ipratropium (Duoneb 3 Mg/0.5 Mg (3 Ml) Ud) 3 ml INH RBID [facility] Last Admin: 08/16/17 19:13 Dose: 3 ml Cholestyramine Resin (Questran) 4 gm PO TIDPC [facility] Last Admin: 08/16/17 17:36 Dose: 4 gm Folic Acid (Folic Acid) 1 mg PO DAILY [facility] Last Admin: 08/16/17 09:39 Dose: 1 mg Ceftriaxone Sodium 1 gm/ (Sodium Chloride) 100 mls @ 100 mls/hr IVPB Q24H [facility] Last Admin: 08/16/17 14:28 Dose: 100 mls/hr Lactulose (Enulose) 10 gm PO BID [facility] Last Admin: 08/16/17 17:33 Dose: 10 gm Nicotine (Nicoderm Cq) 1 patch TD DAILY [facility] Last Admin: 08/16/17 09:40 Dose: 1 patch Pantoprazole Sodium (Protonix Ec Tab) 40 mg PO DAILY [facility] Last Admin: 08/16/17 09:39 Dose: 40 mg Petrolatum (Desitin Original) 1 gm TOP TID [facility] Last Admin: 08/16/17 17:42 Dose: 1 applic Rifaximin (Xifaxan) 550 mg PO BID [facility] Last Admin: 08/16/17 17:37 Dose: 550 mg Sodium Bicarbonate (Sodium Bicarbonate Tab) 1,300 mg PO TID [facility] Last Admin: 08/16/17 17:36 Dose: 1,300 mg Sodium Chloride (Sodium Chloride Tab) 1 gm PO BID [facility] Last Admin: 08/16/17 17:36 Dose: 1 gm Spironolactone (Aldactone) 50 mg PO BID [facility] Last Admin: 08/16/17 17:33 Dose: 50 mg Thiamine HCl (Vitamin B1 Tab) 100 mg PO BID [facility] Last Admin: 08/16/17 17:42 Dose: 100 mg - Labs Labs: 08/16/17 07:11 08/16/17 07:11 PT 17.9 SECONDS (9.7-12.2) H 08/16/17 07:11 INR 1.6 08/16/17 07:11 APTT 34 SECONDS (21-34) 07/18/17 13:52 - Additional Findings Additional findings: - Constitutional Appears: No Acute Distress, Chronically Ill - Head Exam Head Exam: ATRAUMATIC, NORMAL INSPECTION - Eye Exam Eye Exam: EOMI, Normal appearance - ENT Exam ENT Exam: Mucous Membranes Moist - Respiratory Exam Respiratory Exam: Clear to Ausculation Bilateral, NORMAL BREATHING PATTERN, Wheezing - Cardiovascular Exam Cardiovascular Exam: REGULAR RHYTHM, +S1, +S2 - GI/Abdominal Exam GI & Abdominal Exam: Soft, Tenderness (diffuse), Normal Bowel Sounds, Non- distended - Neurological Exam Neurological Exam: Alert, Awake, Oriented x3 - Psychiatric Exam Psychiatric exam: Normal Affect, Normal Mood - Skin Skin Exam: Dry, Warm Assessment and Plan - Assessment and Plan (Free Text) Plan: Ascites and hepatic encephalopathy Consult GI, Dr South, help appreciated CT abd/pelvis shows small to moderate ascites Paracentesis done 07/19/17 with 2.1 L straw colored fluid removed. * peritoneal fluid no growth * Fluid WBC: 147, RBC: 216, neut: 41, lymph: 43, monocyte/macrophage: 15 Repeat paracentesis 08/04/17--4 Liters removed. Replenished with albumin 12.5 gm x2 doses Ammonia level on 08/09: 57--Xifaximin 550 mg PO BID restarted Lactulose 10 mg PO BID with holding parameters in nursing communication to hold if more than 2 consecutive loose stool episodes. Fever, working diagnosis SBP though unlikely due to fluid WBCs Rocephin 1 gm daily empirically started on 08/15/17. Likely not SBP but will treat for total of 3 days Paracentesis 08/16/17--2.5 liters of straw colored fluid f/u fluid studies Colitis and Diarrhea No leukocytosis, afebrile giardia negative, stool ova and parasite negative, stool culture negative blood culture negative negative HIV and hep panel fecal fat study: normal c dif neg x 3 Desitin cream ordered for gluteal and sacral excoriations due to the uncontrolled loose stools. Excoriations improved. Imaging: CT abd/pelvis with IV contrast 07/17: Significant bowel wall thickening involving the colon, appearance most consistent with acute colitis, cannot exclude underlying neoplasm. Small to moderate ascites. Fatty infiltration of the liver. Heterogeneous appearance to hepatic parenchyma. Some of appearance may be due to transient hepatic attenuation differences, concern for underlying lesion. Meds: Cipro 400 IV daily--discontinued Flagyl 500 IV Q8--discontinued Endoscopy (07/28): small hiatal hernia, patchy mild inflammation in gastric antrum biopsies, scalloped mucosa found in duodenum, suspicious for celiac disease- biopsied Colonoscopy (07/28): internal hemorrhoids, mucosal nodule in the sigmoid colon, in transverse colon and in the ascending colon- biopsied Per Dr. South, he suspects pancreatic insufficiency as possible cause due to low stool pancreatic elastase and ordered an MRCP MRCP unable to be obtained due to patient restlessness Dr. South consulted Dr. Guerrero (help appreciated) for evaluation of possible chronic pancreatitis and possible EUS work up * Per Dr. Guerrero, pursue EUS as an outpatient for definitive diagnosis of chronic pancreatitis * Pancreatic enzymes were started with meals and Aldactone increased to 50 mg PO BID by GI team [place] [address] units TID with meals Alcohol abuse/alcohol intoxication/alcohol withdrawal Elevated serum alcohol on admission 292 Seizure and aspiration precautions Ativan 1mg q4h prn for agitation Thiamine 100 mg daily Folic acid 1 mg daily Psych consult, Dr. Man, help appreciated. Detox completed. Hyponatremia Nephrology consult Dr. Middleton, help appreciated Unclear if hyponatremia is due to cirrhosis or hypovolemia from diuretics. Patient previously on trial of NS 100 cc/hr without improvement Hypertonic saline solution on 08/09/17--corrected sodium to 130 Per nephrology to hold diuretics, continue aldactone as allowed by BP Per nephro, NaCL tab 1 gm BID and sodium bicarb supplement 1300 mg PO BID started on 08/15/17 Hypokalemia and Hypomagnesemia f/u and replete Patient intermittently refuses labs Magnesium Sulfate 2 bags were given today Anemia patient transfused 1 u PRBC on 07/20/17 Heme/onc consulted, Dr. Tran help appreciated stool occult blood negative Likely due from bone marrow suppression due to alcohol Tobacco use disorder Nicotine patch S/P Urinary Retention monitor urine output Elevated INR Vitamin K 5mg po daily for a total of 5 days (day 1 on 07/26, last dose to be given on 07/30) continue to monitor Prophylactic Measure/supportive care Pepcid 20mg po BID SCDs, Lovenox 40mg sc daily Simethicone 80mg po BID PT/OT Imodium prn Disposition: Patient with overall poor prognosis. Cirrhosis with ascites, severe pancreatic insufficiency. Patient now DNI/DNI after palliative care discussion. POLST form in the chart. We have moved to attempt to acquire a supply of pancreatic enzymes from [employer] program for the patient. Case DW Dr. Tomy Beth PGY-1 <Ruth Huitron - Last Filed: 08/17/17 18:31> Objective - Vital Signs/Intake and Output Vital Signs (last 24 hours): Temp Pulse Resp BP Pulse Ox 97.8 F 92 H 18 106/72 100 08/17/17 15:58 08/17/17 15:58 08/17/17 15:58 08/17/17 15:58 08/17/17 15:58 Intake and Output: 08/17/17 08/17/17 06:59 18:59 Intake Total 700 Output Total 300 Balance 400 - Medications Medications: Current Medications Albuterol/Ipratropium (Duoneb 3 Mg/0.5 Mg (3 Ml) Ud) 3 ml INH RBID [facility] Last Admin: 08/17/17 07:30 Dose: 3 ml Cholestyramine Resin (Questran) 4 gm PO TIDPC [facility] Last Admin: 08/17/17 14:24 Dose: 4 gm Folic Acid (Folic Acid) 1 mg PO DAILY [facility] Last Admin: 08/17/17 10:55 Dose: 1 mg Ceftriaxone Sodium 1 gm/ (Sodium Chloride) 100 mls @ 100 mls/hr IVPB Q24H [facility] Last Admin: 08/17/17 14:23 Dose: 100 mls/hr Lactulose (Enulose) 10 gm PO BID [facility] Last Admin: 01/31/18 10:55 Dose: 10 gm Nicotine (Nicoderm Cq) 1 patch TD DAILY [facility] Last Admin: 08/17/17 10:55 Dose: 1 patch Pantoprazole Sodium (Protonix Ec Tab) 40 mg PO DAILY [facility] Last Admin: 08/17/17 10:55 Dose: 40 mg Petrolatum (Desitin Original) 1 gm TOP TID [facility] Last Admin: 08/17/17 14:26 Dose: 1 applic Rifaximin (Xifaxan) 550 mg PO BID [facility] Last Admin: 08/17/17 10:55 Dose: 550 mg Sodium Bicarbonate (Sodium Bicarbonate Tab) 1,300 mg PO TID [facility] Last Admin: 08/17/17 14:24 Dose: 1,300 mg Sodium Chloride (Sodium Chloride Tab) 1 gm PO BID [facility] Last Admin: 08/17/17 10:55 Dose: 1 gm Spironolactone (Aldactone) 50 mg PO BID [facility] Last Admin: 08/17/17 10:55 Dose: 50 mg Thiamine HCl (Vitamin B1 Tab) 100 mg PO BID [facility] Last Admin: 08/17/17 10:55 Dose: 100 mg - Labs Labs: 08/17/17 08:30 08/17/17 08:30 PT 17.9 SECONDS (9.7-12.2) H 08/16/17 07:11 INR 1.6 08/16/17 07:11 APTT 34 SECONDS (21-34) 07/18/17 13:52 Attending/Attestation - Attestation I have personally seen and examined this patient.: Yes I have fully participated in the care of the patient.: Yes I have reviewed all pertinent clinical information, including history, physical exam and plan: Yes Notes (Text): patient was seen and examined,patient is alert and oriented x3 Feeling little better,His stool is more formed/not watery diarrhea d/W PT pt was able to ambulate with walker. He will need a walker on discharge. Patient is homeless/lives in a correction.He wants to go to [place] when he is able to travel. Discussed with the resident
[2017-08-17] MEDS: Albuterol-Ipratrop 3 mg / 0.5 (3 ml) UD INH SCH ×2 (07:30→19:44)
[2017-08-17 08:37] LABS: BASO # 0.1 K/uL (0.0-0.2); BASO % 0.6 % (0.0-2.0); EOS # 0.1 K/uL (0.0-0.7); EOS % 0.8 % (0.0-4.0); HEMOGLOBIN 9.3 g/dL (12.0-18.0); MEAN CELL VOLUME 88.6 fL (80.0-94.0); MEAN CORPUSCULAR HGB CONC 33.9 g/dL (33.0-37.0); MEAN PLATELET VOLUME 9.7 fL (7.2-11.7); MONO # 0.6 K/uL (0.0-0.8); NEUT # 4.8 K/uL (1.8-7.0); NEUT % 56.6 % (50.0-75.0); NRBC % 0.1 % (0.0-2.0); RBC 3.12 Mil/uL (4.40-5.90); RED CELL DISTRIBUTION WIDTH 18.1 % (11.5-14.5); WHITE BLOOD COUNT 8.4 K/uL (4.8-10.8)
[2017-08-17 08:58] LABS: ALB/GLOB RATIO 0.6 (1.0-2.1); ALBUMIN 2.4 g/dL (3.5-5.0); ALT/SGPT 46 U/L (21-72); AST/SGOT 153 U/L (17-59); BLOOD UREA NITROGEN 10 mg/dL (9-20); CALCIUM 7.6 mg/dl (8.6-10.4); GFR AFRICAN-AMERICAN > 60; GFR NON-AFRICAN AMERICAN > 60
[2017-08-17] MEDS: LIPASE/PROTEASE/AMYLASE 4,200 U ECC PO SCH ×3 (09:13→18:58)
[2017-08-17] MEDS ORDERED: Potassium Chloride 20 mEq ER Tab PO SCH (10:00)
[2017-08-17] MEDS: Zinc Oxide Topical 30 gm Tube TOP SCH ×3 (10:55→19:01)
[2017-08-17] MEDS: Pantoprazole 40 mg EC Tab PO SCH (10:55)
[2017-08-17] MEDS: Cholestyramine 4 gm/Pkt UD PO SCH ×3 (10:55→18:57)
[2017-08-17] MEDS ORDERED: Potassium Chloride 20 mEq ER Tab PO ONE (12:00)
--- NOTE | 2017-08-17 15:24 | CP.PCM.PN ---
Subjective - Date & Time of Evaluation Date of Evaluation: 08/17/17 Time of Evaluation: 01:00 - Subjective Subjective: Cries. denies pain/nausea Objective - Vital Signs/Intake and Output Vital Signs (last 24 hours): Temp Pulse Resp BP Pulse Ox 97.7 F 88 20 100/68 100 08/17/17 08:45 08/17/17 08:45 08/17/17 08:45 08/17/17 08:45 08/17/17 08:45 - Medications Medications: Current Medications Albuterol/Ipratropium (Duoneb 3 Mg/0.5 Mg (3 Ml) Ud) 3 ml INH RBID [facility] Last Admin: 08/17/17 07:30 Dose: 3 ml Cholestyramine Resin (Questran) 4 gm PO TIDPC [facility] Last Admin: 08/17/17 14:24 Dose: 4 gm Folic Acid (Folic Acid) 1 mg PO DAILY [facility] Last Admin: 08/17/17 10:55 Dose: 1 mg Ceftriaxone Sodium 1 gm/ (Sodium Chloride) 100 mls @ 100 mls/hr IVPB Q24H [facility] Last Admin: 08/17/17 14:23 Dose: 100 mls/hr Lactulose (Enulose) 10 gm PO BID [facility] Last Admin: 08/17/17 10:55 Dose: 10 gm Nicotine (Nicoderm Cq) 1 patch TD DAILY [facility] Last Admin: 08/17/17 10:55 Dose: 1 patch Pantoprazole Sodium (Protonix Ec Tab) 40 mg PO DAILY [facility] Last Admin: 08/17/17 10:55 Dose: 40 mg Petrolatum (Desitin Original) 1 gm TOP TID [facility] Last Admin: 08/17/17 14:26 Dose: 1 applic Rifaximin (Xifaxan) 550 mg PO BID [facility] Last Admin: 08/17/17 10:55 Dose: 550 mg Sodium Bicarbonate (Sodium Bicarbonate Tab) 1,300 mg PO TID [facility] Last Admin: 08/17/17 14:24 Dose: 1,300 mg Sodium Chloride (Sodium Chloride Tab) 1 gm PO BID [facility] Last Admin: 08/17/17 10:55 Dose: 1 gm Spironolactone (Aldactone) 50 mg PO BID [facility] Last Admin: 08/17/17 10:55 Dose: 50 mg Thiamine HCl (Vitamin B1 Tab) 100 mg PO BID [facility] Last Admin: 08/17/17 10:55 Dose: 100 mg - Labs Labs: 08/17/17 08:30 08/17/17 08:30 PT 17.9 SECONDS (9.7-12.2) H 08/16/17 07:11 INR 1.6 08/16/17 07:11 APTT 34 SECONDS (21-34) 07/18/17 13:52 - Constitutional Appears: No Acute Distress, Chronically Ill - Head Exam Head Exam: ATRAUMATIC, NORMAL INSPECTION, NORMOCEPHALIC - Eye Exam Eye Exam: EOMI, Normal appearance, PERRL Pupil Exam: NORMAL ACCOMODATION, PERRL - ENT Exam ENT Exam: Mucous Membranes Moist, Normal Exam - Neck Exam Neck Exam: Full ROM, Normal Inspection - Respiratory Exam Respiratory Exam: Decreased Breath Sounds, NORMAL BREATHING PATTERN - Cardiovascular Exam Cardiovascular Exam: Tachycardia, REGULAR RHYTHM - GI/Abdominal Exam GI & Abdominal Exam: Soft, Diminished Bowel Sounds - Rectal Exam Rectal Exam: Deferred - Exam Exam: NORMAL INSPECTION - Extremities Exam Extremities Exam: Normal Inspection - Back Exam Back Exam: NORMAL INSPECTION - Neurological Exam Neurological Exam: Alert, Oriented x3 Neuro motor strength exam: Left Upper Extremity: 3, Right Upper Extremity: 3, Left Lower Extremity: 3, Right Lower Extremity: 3 - Psychiatric Exam Psychiatric exam: Depressed, Normal Affect, Normal Mood - Skin Skin Exam: Normal Color, Warm Assessment and Plan - Assessment and Plan (Free Text) Assessment: Patient seen and examined in bed in no acute distress, alert, oriented X 3. patient looks much better than last time I saw him. Skin intact, normal color, Hb 9.3. Breath sounds diminished, denies cough, RR normal. Abdomen non distended , S/P paracentesis, + BM, on Lactulose PO. Denies abdominal pain,, states occasional nausea. Reports good food tolerance for the most part. Extremities mobile, no pedal edema. BP 98/68, HR 102, afebrile. T Deric 1.3, Albumin 2.4. Goals of care discussed. Patient acknowledges how severe his condition is. Patient cried. He wants to return to [place]. As of now no contact with his children made. Patient is homeless. His friend Mr. Perdue helps him a little bit but can not take him home with him. I suggested I was to talk to his friend Mr. Peng and see if he could contact his children in [place]. he agreed. Code status discussed. meaning of Code status reviewed with patient. Patient was very clear that he would not want his life prolonged by life support if his condition becomes terminal. POLST signed, he choose DNR/DNI. This was shared with Doctor Ignacia and nursing. I met today with patient's friend Mr. Peng, who confirmed that as of now he did not establish contact with patient's children. he will keep on trying. I gave him my contact information. Impression * This is a chronically ill man , with liver cirrhosis, ascites and severe pancreatic insuficiency * The acute symptoms are improved and patient is AAO X 3 today * Patient wishes to return home to [place] but as of now there is no contact with his family there * Homeless, lack of social, emotional and financial support * DNR/DNI chosen, CANELO on chart Suggestion * Symptoms control * Discharge to alf when ready. If contact with family in [place] established , his traveling there will depend on his condition at that time. * Agree with DNR/DNI
--- NOTE | 2017-08-17 16:42 | CP.PCM.PN ---
Subjective - Date & Time of Evaluation Date of Evaluation: 08/17/17 Time of Evaluation: 16:41 - Subjective Subjective: Follow up Nephrology Consultation Note Assessment: stable Hyponatremia multifactorial, due to diuretics and ongoing GI volume loss due to enterocolitis, ADH stimulation, chronic etoh Cirrhosis, smoker and Etoh abuse Hypomagnesemia Plan continue to hold diuretics. continue with aldactone as allowed by BP supplement electrolytes as needed avoid correction in serum Na >6-8 meq/24 hr. started NaCl tab 1 gram bid. continue with bicarb supplements glycemic control supplement electrolytes as needed. dose of KCL ordered for today Further work up as per primary team palliative care involved Thanks for allowing me to participate in care of your patient. Will follow patient with you. Please call if any Qs. Dr Ciro Middleton Office: [phone] Subjective: Noted events overnight. Patients denies CP/palpitation/SOB. had loose stool Physical Examination: General Appearance: Comfortable, in no acute respiratory distress, co-operative . ill appearing Vitals reviewed and noted as below Head; Atraumatic, normocephalic ENT: no ulcers no thrush. Tongue is midline. Oropharynx: no rash or ulcers. EYES: Pupils are equal, round and reactive to light accommodation. Eye muscles and extraocular movement intact. Sclera is anicteric. Neck; supple no lymphadenopathy, no thyromegaly or bruit Lungs: Normal respiratory rate/effort. Breath sounds bilateral equal and clear Heart: normal rate. s1s2 normal. No rub or gallop. Extremities: no edema. No varicose veins Neurological: Patient is awake alert Skin: Warm and dry. Normal turgor. No rash. Palpitation: Normal elasticity for age Abdomen: Abdomen is soft. Bowel sounds +. There is mild abdominal tenderness, no guarding/rigidity no organomegaly. has ascites Psych: limited insight MSK: no joint tenderness or swelling. Digits and nails normal, no deformity : kidney or bladder not palpable Labs/imaging reviewed. Past medical history, past surgical history, family history, social history, allergy reviewed and noted as below Family hx: no hx of CKD. Rest non-contributory Imaging: enterocolitis and atrophic pancreas urine Na 43 and urine osmol 401 Objective - Vital Signs/Intake and Output Vital Signs (last 24 hours): Temp Pulse Resp BP Pulse Ox 97.8 F 92 H 18 106/72 100 08/17/17 15:58 08/17/17 15:58 08/17/17 15:58 08/17/17 15:58 08/17/17 15:58 Intake and Output: 08/17/17 08/17/17 06:59 18:59 Intake Total 700 Output Total 300 Balance 400 - Medications Medications: Current Medications Albuterol/Ipratropium (Duoneb 3 Mg/0.5 Mg (3 Ml) Ud) 3 ml INH RBID [facility] Last Admin: 08/17/17 07:30 Dose: 3 ml Cholestyramine Resin (Questran) 4 gm PO TIDPC [facility] Last Admin: 08/17/17 14:24 Dose: 4 gm Folic Acid (Folic Acid) 1 mg PO DAILY [facility] Last Admin: 08/17/17 10:55 Dose: 1 mg Ceftriaxone Sodium 1 gm/ (Sodium Chloride) 100 mls @ 100 mls/hr IVPB Q24H [facility] Last Admin: 08/17/17 14:23 Dose: 100 mls/hr Lactulose (Enulose) 10 gm PO BID [facility] Last Admin: 08/17/17 10:55 Dose: 10 gm Nicotine (Nicoderm Cq) 1 patch TD DAILY [facility] Last Admin: 08/17/17 10:55 Dose: 1 patch Pantoprazole Sodium (Protonix Ec Tab) 40 mg PO DAILY [facility] Last Admin: 08/17/17 10:55 Dose: 40 mg Petrolatum (Desitin Original) 1 gm TOP TID [facility] Last Admin: 08/17/17 14:26 Dose: 1 applic Rifaximin (Xifaxan) 550 mg PO BID [facility] Last Admin: 08/17/17 10:55 Dose: 550 mg Sodium Bicarbonate (Sodium Bicarbonate Tab) 1,300 mg PO TID [facility] Last Admin: 08/17/17 14:24 Dose: 1,300 mg Sodium Chloride (Sodium Chloride Tab) 1 gm PO BID [facility] Last Admin: 08/17/17 10:55 Dose: 1 gm Spironolactone (Aldactone) 50 mg PO BID [facility] Last Admin: 08/17/17 10:55 Dose: 50 mg Thiamine HCl (Vitamin B1 Tab) 100 mg PO BID [facility] Last Admin: 08/17/17 10:55 Dose: 100 mg - Labs Labs: 08/17/17 08:30 08/17/17 08:30 PT 17.9 SECONDS (9.7-12.2) H 08/16/17 07:11 INR 1.6 08/16/17 07:11 APTT 34 SECONDS (21-34) 07/18/17 13:52
--- NOTE | 2017-08-18 07:27 | CP.PCM.PN ---
<Tima Beth - Last Filed: 08/18/17 13:16> Subjective - Date & Time of Evaluation Date of Evaluation: 08/18/17 Time of Evaluation: 07:30 - Subjective Subjective: Medicine progress note for Dr. Huitron Patient seen and examined. Patient complains of ongoing diarrhea this morning. Per nursing staff, yesterday the diarrhea was improving but is now worsening today. Patient continues to have abdominal tenderness. Objective - Vital Signs/Intake and Output Vital Signs (last 24 hours): Temp Pulse Resp BP Pulse Ox 98.2 F 92 H 20 107/70 100 08/18/17 00:00 08/18/17 00:00 08/18/17 00:00 08/18/17 00:00 08/18/17 00:00 Intake and Output: 08/18/17 08/18/17 06:59 18:59 Intake Total 10 Balance 10 - Medications Medications: Current Medications Albuterol/Ipratropium (Duoneb 3 Mg/0.5 Mg (3 Ml) Ud) 3 ml INH RBID [facility] Last Admin: 08/17/17 19:44 Dose: 3 ml Cholestyramine Resin (Questran) 4 gm PO TIDPC [facility] Last Admin: 08/17/17 18:57 Dose: 4 gm Folic Acid (Folic Acid) 1 mg PO DAILY [facility] Last Admin: 08/17/17 10:55 Dose: 1 mg Ceftriaxone Sodium 1 gm/ (Sodium Chloride) 100 mls @ 100 mls/hr IVPB Q24H [facility] Last Admin: 08/17/17 14:23 Dose: 100 mls/hr Lactulose (Enulose) 10 gm PO BID [facility] Last Admin: 08/17/17 18:58 Dose: 10 gm Nicotine (Nicoderm Cq) 1 patch TD DAILY [facility] Last Admin: 08/17/17 10:55 Dose: 1 patch Pantoprazole Sodium (Protonix Ec Tab) 40 mg PO DAILY [facility] Last Admin: 08/17/17 10:55 Dose: 40 mg Petrolatum (Desitin Original) 1 gm TOP TID [facility] Last Admin: 08/17/17 19:01 Dose: 1 applic Rifaximin (Xifaxan) 550 mg PO BID [facility] Last Admin: 08/17/17 18:59 Dose: 550 mg Sodium Bicarbonate (Sodium Bicarbonate Tab) 1,300 mg PO TID [facility] Last Admin: 08/17/17 18:59 Dose: 1,300 mg Sodium Chloride (Sodium Chloride Tab) 1 gm PO BID [facility] Last Admin: 08/17/17 18:59 Dose: 1 gm Spironolactone (Aldactone) 50 mg PO BID [facility] Last Admin: 08/17/17 18:59 Dose: 50 mg Thiamine HCl (Vitamin B1 Tab) 100 mg PO BID [facility] Last Admin: 08/17/17 19:00 Dose: 100 mg - Labs Labs: 08/17/17 08:30 08/17/17 08:30 PT 17.9 SECONDS (9.7-12.2) H 08/16/17 07:11 INR 1.6 08/16/17 07:11 APTT 34 SECONDS (21-34) 07/18/17 13:52 - Additional Findings Additional findings: - Constitutional Appears: No Acute Distress, Chronically Ill - Head Exam Head Exam: ATRAUMATIC, NORMAL INSPECTION - Eye Exam Eye Exam: EOMI, Normal appearance - ENT Exam ENT Exam: Mucous Membranes Moist - Respiratory Exam Respiratory Exam: Clear to Ausculation Bilateral, NORMAL BREATHING PATTERN, Wheezing - Cardiovascular Exam Cardiovascular Exam: REGULAR RHYTHM, +S1, +S2 - GI/Abdominal Exam GI & Abdominal Exam: Soft, Tenderness (diffuse), Normal Bowel Sounds, Non- distended - Neurological Exam Neurological Exam: Alert, Awake, Oriented x3 - Psychiatric Exam Psychiatric exam: Normal Affect, Normal Mood - Skin Skin Exam: Dry, Warm Assessment and Plan - Assessment and Plan (Free Text) Plan: Ascites and hepatic encephalopathy Consult GI, Dr South, help appreciated CT abd/pelvis shows small to moderate ascites Paracentesis done 07/19/17 with 2.1 L straw colored fluid removed. * peritoneal fluid no growth * Fluid WBC: 147, RBC: 216, neut: 41, lymph: 43, monocyte/macrophage: 15 Repeat paracentesis 08/04/17--4 Liters removed. Replenished with albumin 12.5 gm x2 doses Ammonia level on 08/09: 57--Xifaximin 550 mg PO BID restarted Lactulose 10 mg PO BID with holding parameters in nursing communication to hold if more than 2 consecutive loose stool episodes. Fever, working diagnosis SBP though unlikely due to fluid WBCs Rocephin 1 gm daily empirically started on 08/15/17. Likely not SBP but will treat for total of 3 days Paracentesis 08/16/17--2.5 liters of straw colored fluid f/u fluid studies Colitis and Diarrhea No leukocytosis, afebrile giardia negative, stool ova and parasite negative, stool culture negative blood culture negative negative HIV and hep panel fecal fat study: normal c dif neg x 3 Desitin cream ordered for gluteal and sacral excoriations due to the uncontrolled loose stools. Excoriations improved. Imaging: CT abd/pelvis with IV contrast 07/17: Significant bowel wall thickening involving the colon, appearance most consistent with acute colitis, cannot exclude underlying neoplasm. Small to moderate ascites. Fatty infiltration of the liver. Heterogeneous appearance to hepatic parenchyma. Some of appearance may be due to transient hepatic attenuation differences, concern for underlying lesion. Meds: Cipro 400 IV daily--discontinued Flagyl 500 IV Q8--discontinued Endoscopy (07/28): small hiatal hernia, patchy mild inflammation in gastric antrum biopsies, scalloped mucosa found in duodenum, suspicious for celiac disease- biopsied Colonoscopy (07/28): internal hemorrhoids, mucosal nodule in the sigmoid colon, in transverse colon and in the ascending colon- biopsied Per Dr. South, he suspects pancreatic insufficiency as possible cause due to low stool pancreatic elastase and ordered an MRCP MRCP unable to be obtained due to patient restlessness Dr. South consulted Dr. Guerrero (help appreciated) for evaluation of possible chronic pancreatitis and possible EUS work up * Per Dr. Guerrero, pursue EUS as an outpatient for definitive diagnosis of chronic pancreatitis * Pancreatic enzymes were started with meals and Aldactone increased to 50 mg PO BID by GI team [place] [address] units TID with meals Alcohol abuse/alcohol intoxication/alcohol withdrawal Elevated serum alcohol on admission 292 Seizure and aspiration precautions Ativan 1mg q4h prn for agitation Thiamine 100 mg daily Folic acid 1 mg daily Psych consult, Dr. Man, help appreciated. Detox completed. Hyponatremia Nephrology consult Dr. Middleton, help appreciated Unclear if hyponatremia is due to cirrhosis or hypovolemia from diuretics. Patient previously on trial of NS 100 cc/hr without improvement Hypertonic saline solution on 08/09/17--corrected sodium to 130 Per nephrology to hold diuretics, continue aldactone as allowed by BP Per nephro, NaCL tab 1 gm BID and sodium bicarb supplement 1300 mg PO BID started on 08/15/17 Hypokalemia and Hypomagnesemia f/u and replete Patient intermittently refuses labs Magnesium Sulfate 2 bags were given today Anemia patient transfused 1 u PRBC on 07/20/17 Heme/onc consulted, Dr. Tran help appreciated stool occult blood negative Likely due from bone marrow suppression due to alcohol Tobacco use disorder Nicotine patch S/P Urinary Retention monitor urine output Elevated INR Vitamin K 5mg po daily for a total of 5 days (day 1 on 07/26, last dose to be given on 07/30) continue to monitor Prophylactic Measure/supportive care Pepcid 20mg po BID SCDs, Lovenox 40mg sc daily Simethicone 80mg po BID PT/OT Imodium prn Disposition: Patient with overall poor prognosis. Cirrhosis with ascites, severe pancreatic insufficiency. Patient now DNI/DNI after palliative care discussion. POLST form in the chart. We have moved to attempt to acquire a supply of pancreatic enzymes from [employer] program for the patient. No updates at this time. Case DW Dr. Tomy Beth PGY-1 <Ruth Huitron - Last Filed: 08/20/17 11:33> Objective - Vital Signs/Intake and Output Vital Signs (last 24 hours): Temp Pulse Resp BP Pulse Ox 98.4 F 83 20 103/69 98 08/20/17 07:00 08/20/17 07:00 08/20/17 07:00 08/20/17 07:00 08/20/17 07:00 - Medications Medications: Current Medications Albuterol/Ipratropium (Duoneb 3 Mg/0.5 Mg (3 Ml) Ud) 3 ml INH RBID [facility] Last Admin: 08/19/17 19:21 Dose: 3 ml Cholestyramine Resin (Questran) 4 gm PO TIDPC [facility] Last Admin: 08/20/17 10:34 Dose: 4 gm Folic Acid (Folic Acid) 1 mg PO DAILY [facility] Last Admin: 08/20/17 10:33 Dose: 1 mg Lactulose (Enulose) 10 gm PO BID [facility] Last Admin: 08/20/17 10:37 Dose: 10 gm Pantoprazole Sodium (Protonix Ec Tab) 40 mg PO DAILY [facility] Last Admin: 08/20/17 10:33 Dose: 40 mg Petrolatum (Desitin Original) 1 gm TOP TID [facility] Last Admin: 08/20/17 10:33 Dose: 1 applic Rifaximin (Xifaxan) 550 mg PO BID [facility] Last Admin: 08/20/17 10:36 Dose: 550 mg Sodium Bicarbonate (Sodium Bicarbonate Tab) 1,300 mg PO TID [facility] Last Admin: 08/20/17 10:34 Dose: 1,300 mg Sodium Chloride (Sodium Chloride Tab) 1 gm PO BID [facility] Last Admin: 08/20/17 10:36 Dose: 1 gm Spironolactone (Aldactone) 50 mg PO BID [facility] Last Admin: 08/20/17 10:37 Dose: 50 mg Thiamine HCl (Vitamin B1 Tab) 100 mg PO BID [facility] Last Admin: 08/20/17 10:33 Dose: 100 mg - Labs Labs: 08/18/17 11:13 08/18/17 11:13 PT 17.9 SECONDS (9.7-12.2) H 08/16/17 07:11 INR 1.6 08/16/17 07:11 APTT 34 SECONDS (21-34) 07/18/17 13:52 Attending/Attestation - Attestation I have personally seen and examined this patient.: Yes I have fully participated in the care of the patient.: Yes I have reviewed all pertinent clinical information, including history, physical exam and plan: Yes Notes (Text): Seen and examined Frail male with liver cirrhosis,ascites and incontinent of bowel is homeless. Came from a intermediate where he has no support and uses the place to sleep. Patient wants to go to [place] to join with his family.Spoke to his Friend who was helping him in the past. Luis [phone] will be here this Tuesday to discuss about discharge and make arrangement to go to [facility] .
[2017-08-18] MEDS: Albuterol-Ipratrop 3 mg / 0.5 (3 ml) UD INH SCH ×2 (07:51→20:44)
[2017-08-18] MEDS: Cholestyramine 4 gm/Pkt UD PO SCH ×3 (08:08→18:55)
[2017-08-18] MEDS: LIPASE/PROTEASE/AMYLASE 4,200 U ECC PO SCH (08:09)
[2017-08-18] MEDS: Pantoprazole 40 mg EC Tab PO SCH (10:40)
[2017-08-18] MEDS: Zinc Oxide Topical 30 gm Tube TOP SCH ×3 (10:42→18:00)
[2017-08-18 11:20] LABS: BASO # 0.1 K/uL (0.0-0.2); BASO % 0.6 % (0.0-2.0); EOS # 0.1 K/uL (0.0-0.7); EOS % 0.9 % (0.0-4.0); HEMOGLOBIN 9.6 g/dL (12.0-18.0); LYMPH # 2.5 K/uL (1.0-4.3); LYMPH % 30.4 % (20.0-40.0); MEAN CELL VOLUME 90.2 fL (80.0-94.0); MEAN CORPUSCULAR HEMOGLOBIN 29.3 pg (27.0-31.0); MEAN CORPUSCULAR HGB CONC 32.5 g/dL (33.0-37.0); MEAN PLATELET VOLUME 9.8 fL (7.2-11.7); MONO # 0.5 K/uL (0.0-0.8); MONO % 6.2 % (0.0-10.0); NEUT # 5.1 K/uL (1.8-7.0); NEUT % 61.9 % (50.0-75.0); NRBC % 0.4 % (0.0-2.0); RBC 3.29 Mil/uL (4.40-5.90); RED CELL DISTRIBUTION WIDTH 17.9 % (11.5-14.5); WHITE BLOOD COUNT 8.3 K/uL (4.8-10.8)
[2017-08-18 11:33] LABS: ALB/GLOB RATIO 0.6 (1.0-2.1); ALBUMIN 2.5 g/dL (3.5-5.0); ALT/SGPT 45 U/L (21-72); AST/SGOT 145 U/L (17-59); BLOOD UREA NITROGEN 9 mg/dL (9-20); CALCIUM 7.8 mg/dl (8.6-10.4); GFR AFRICAN-AMERICAN > 60; GFR NON-AFRICAN AMERICAN > 60; MAGNESIUM 1.5 mg/dL (1.6-2.3)
[2017-08-18] MEDS: Magnesium Sulfate 1 gm in D5W 1 GM/100 ML BAG IVPB SCH (12:34)
[2017-08-18] MEDS: LIPASE/PROTEASE/AMYLASE 21,000 U ECC PO SCH ×2 (12:50→18:56)
--- NOTE | 2017-08-18 14:51 | CP.PCM.PN ---
Subjective - Date & Time of Evaluation Date of Evaluation: 08/18/17 Time of Evaluation: 14:51 - Subjective Subjective: Follow up Nephrology Consultation Note Assessment: stable Hyponatremia multifactorial, due to diuretics and ongoing GI volume loss due to enterocolitis, ADH stimulation, chronic etoh Cirrhosis, smoker and Etoh abuse Hypomagnesemia Plan continue to hold diuretics. continue with aldactone as allowed by BP supplement electrolytes as needed avoid correction in serum Na >6-8 meq/24 hr. started NaCl tab 1 gram bid. continue with bicarb supplements glycemic control supplement electrolytes as needed. Further work up as per primary team palliative care involved Thanks for allowing me to participate in care of your patient. Will follow patient with you. Please call if any Qs. Dr Ciro Middleton Office: [phone] Subjective: Noted events overnight. Patients denies CP/palpitation/SOB. had loose stool Physical Examination: General Appearance: Comfortable, in no acute respiratory distress, co-operative . ill appearing Vitals reviewed and noted as below Head; Atraumatic, normocephalic ENT: no ulcers no thrush. Tongue is midline. Oropharynx: no rash or ulcers. EYES: Pupils are equal, round and reactive to light accommodation. Eye muscles and extraocular movement intact. Sclera is anicteric. Neck; supple no lymphadenopathy, no thyromegaly or bruit Lungs: Normal respiratory rate/effort. Breath sounds bilateral equal and clear Heart: normal rate. s1s2 normal. No rub or gallop. Extremities: no edema. No varicose veins Neurological: Patient is awake alert Skin: Warm and dry. Normal turgor. No rash. Palpitation: Normal elasticity for age Abdomen: Abdomen is soft. Bowel sounds +. There is mild abdominal tenderness, no guarding/rigidity no organomegaly. has ascites Psych: limited insight MSK: no joint tenderness or swelling. Digits and nails normal, no deformity : kidney or bladder not palpable Labs/imaging reviewed. Past medical history, past surgical history, family history, social history, allergy reviewed and noted as below Family hx: no hx of CKD. Rest non-contributory Imaging: enterocolitis and atrophic pancreas urine Na 43 and urine osmol 401 Objective - Vital Signs/Intake and Output Vital Signs (last 24 hours): Temp Pulse Resp BP Pulse Ox 97.9 F 80 20 108/74 99 08/18/17 08:51 08/18/17 08:51 08/18/17 08:51 08/18/17 08:51 08/18/17 08:51 Intake and Output: 08/18/17 08/18/17 06:59 18:59 Intake Total 10 Balance 10 - Medications Medications: Current Medications Albuterol/Ipratropium (Duoneb 3 Mg/0.5 Mg (3 Ml) Ud) 3 ml INH RBID [facility] Last Admin: 08/18/17 07:51 Dose: 3 ml Cholestyramine Resin (Questran) 4 gm PO TIDPC [facility] Last Admin: 08/18/17 12:50 Dose: 4 gm Folic Acid (Folic Acid) 1 mg PO DAILY [facility] Last Admin: 08/18/17 10:40 Dose: 1 mg Ceftriaxone Sodium 1 gm/ (Sodium Chloride) 100 mls @ 100 mls/hr IVPB Q24H [facility] Last Admin: 08/18/17 14:03 Dose: 100 mls/hr Lactulose (Enulose) 10 gm PO BID [facility] Last Admin: 08/18/17 10:41 Dose: Not Given Nicotine (Nicoderm Cq) 1 patch TD DAILY [facility] Last Admin: 08/18/17 10:40 Dose: 1 patch Pantoprazole Sodium (Protonix Ec Tab) 40 mg PO DAILY [facility] Last Admin: 08/18/17 10:40 Dose: 40 mg Petrolatum (Desitin Original) 1 gm TOP TID [facility] Last Admin: 08/18/17 14:03 Dose: 1 applic Rifaximin (Xifaxan) 550 mg PO BID [facility] Last Admin: 08/18/17 10:40 Dose: 550 mg Sodium Bicarbonate (Sodium Bicarbonate Tab) 1,300 mg PO TID [facility] Last Admin: 08/18/17 10:40 Dose: 1,300 mg Sodium Chloride (Sodium Chloride Tab) 1 gm PO BID [facility] Last Admin: 08/18/17 10:40 Dose: 1 gm Spironolactone (Aldactone) 50 mg PO BID [facility] Last Admin: 08/18/17 10:40 Dose: 50 mg Thiamine HCl (Vitamin B1 Tab) 100 mg PO BID [facility] Last Admin: 08/18/17 10:40 Dose: 100 mg - Labs Labs: 08/18/17 11:13 08/18/17 11:13 PT 17.9 SECONDS (9.7-12.2) H 08/16/17 07:11 INR 1.6 08/16/17 07:11 APTT 34 SECONDS (21-34) 07/18/17 13:52
--- NOTE | 2017-08-19 07:10 | CP.PCM.PN ---
<Tima Beth - Last Filed: 08/19/17 17:46> Subjective - Date & Time of Evaluation Date of Evaluation: 08/19/17 Time of Evaluation: 07:00 - Subjective Subjective: Medicine progress note for Dr. Huitron Patient seen and examined. Patient with ongoing diarrhea and abdominal tenderness. Patient mentation is good today. Objective - Vital Signs/Intake and Output Vital Signs (last 24 hours): Temp Pulse Resp BP Pulse Ox 97.9 F 94 H 20 95/63 L 99 08/18/17 23:30 08/18/17 23:30 08/18/17 23:30 08/18/17 23:30 08/18/17 23:30 - Medications Medications: Current Medications Albuterol/Ipratropium (Duoneb 3 Mg/0.5 Mg (3 Ml) Ud) 3 ml INH RBID [facility] Last Admin: 08/18/17 20:44 Dose: Not Given Cholestyramine Resin (Questran) 4 gm PO TIDPC [facility] Last Admin: 08/18/17 18:55 Dose: 4 gm Folic Acid (Folic Acid) 1 mg PO DAILY [facility] Last Admin: 08/18/17 10:40 Dose: 1 mg Lactulose (Enulose) 10 gm PO BID [facility] Last Admin: 08/18/17 18:57 Dose: 10 gm Pantoprazole Sodium (Protonix Ec Tab) 40 mg PO DAILY [facility] Last Admin: 08/18/17 10:40 Dose: 40 mg Petrolatum (Desitin Original) 1 gm TOP TID [facility] Last Admin: 08/18/17 14:03 Dose: 1 applic Rifaximin (Xifaxan) 550 mg PO BID [facility] Last Admin: 08/18/17 18:55 Dose: 550 mg Sodium Bicarbonate (Sodium Bicarbonate Tab) 1,300 mg PO TID [facility] Last Admin: 08/18/17 18:56 Dose: 1,300 mg Sodium Chloride (Sodium Chloride Tab) 1 gm PO BID [facility] Last Admin: 08/18/17 18:55 Dose: 1 gm Spironolactone (Aldactone) 50 mg PO BID [facility] Last Admin: 08/18/17 18:55 Dose: 50 mg Thiamine HCl (Vitamin B1 Tab) 100 mg PO BID [facility] Last Admin: 08/18/17 19:02 Dose: 100 mg - Labs Labs: 08/18/17 11:13 08/18/17 11:13 PT 17.9 SECONDS (9.7-12.2) H 08/16/17 07:11 INR 1.6 08/16/17 07:11 APTT 34 SECONDS (21-34) 07/18/17 13:52 - Additional Findings Additional findings: - Constitutional Appears: No Acute Distress, Chronically Ill - Head Exam Head Exam: ATRAUMATIC, NORMAL INSPECTION - Eye Exam Eye Exam: EOMI, Normal appearance - ENT Exam ENT Exam: Mucous Membranes Moist - Respiratory Exam Respiratory Exam: Clear to Ausculation Bilateral, NORMAL BREATHING PATTERN, Wheezing - Cardiovascular Exam Cardiovascular Exam: REGULAR RHYTHM, +S1, +S2 - GI/Abdominal Exam GI & Abdominal Exam: Soft, Tenderness (diffuse), Normal Bowel Sounds, Non- distended - Neurological Exam Neurological Exam: Alert, Awake, Oriented x3 - Psychiatric Exam Psychiatric exam: Normal Affect, Normal Mood - Skin Skin Exam: Dry, Warm Assessment and Plan - Assessment and Plan (Free Text) Plan: Ascites and hepatic encephalopathy Consult GI, Dr South, help appreciated CT abd/pelvis shows small to moderate ascites Paracentesis done 07/19/17 with 2.1 L straw colored fluid removed. * peritoneal fluid no growth * Fluid WBC: 147, RBC: 216, neut: 41, lymph: 43, monocyte/macrophage: 15 Repeat paracentesis 08/04/17--4 Liters removed. Replenished with albumin 12.5 gm x2 doses Ammonia level on 08/09: 57--Xifaximin 550 mg PO BID restarted Lactulose 10 mg PO BID with holding parameters in nursing communication to hold if more than 2 consecutive loose stool episodes. Fever, working diagnosis SBP though unlikely due to fluid WBCs Rocephin 1 gm daily empirically started on 08/15/17. Likely not SBP but will treat for total of 3 days Paracentesis 08/16/17--2.5 liters of straw colored fluid f/u fluid studies Colitis and Diarrhea No leukocytosis, afebrile giardia negative, stool ova and parasite negative, stool culture negative blood culture negative negative HIV and hep panel fecal fat study: normal c dif neg x 3 Desitin cream ordered for gluteal and sacral excoriations due to the uncontrolled loose stools. Excoriations improved. Imaging: CT abd/pelvis with IV contrast 07/17: Significant bowel wall thickening involving the colon, appearance most consistent with acute colitis, cannot exclude underlying neoplasm. Small to moderate ascites. Fatty infiltration of the liver. Heterogeneous appearance to hepatic parenchyma. Some of appearance may be due to transient hepatic attenuation differences, concern for underlying lesion. Meds: Cipro 400 IV daily--discontinued Flagyl 500 IV Q8--discontinued Endoscopy (07/28): small hiatal hernia, patchy mild inflammation in gastric antrum biopsies, scalloped mucosa found in duodenum, suspicious for celiac disease- biopsied Colonoscopy (07/28): internal hemorrhoids, mucosal nodule in the sigmoid colon, in transverse colon and in the ascending colon- biopsied Per Dr. South, he suspects pancreatic insufficiency as possible cause due to low stool pancreatic elastase and ordered an MRCP MRCP unable to be obtained due to patient restlessness Dr. South consulted Dr. Guerrero (help appreciated) for evaluation of possible chronic pancreatitis and possible EUS work up * Per Dr. Guerrero, pursue EUS as an outpatient for definitive diagnosis of chronic pancreatitis * Pancreatic enzymes were started with meals and Aldactone increased to 50 mg PO BID by GI team [place] [address] units TID with meals Alcohol abuse/alcohol intoxication/alcohol withdrawal Elevated serum alcohol on admission 292 Seizure and aspiration precautions Ativan 1mg q4h prn for agitation Thiamine 100 mg daily Folic acid 1 mg daily Psych consult, Dr. Man, help appreciated. Detox completed. Hyponatremia Nephrology consult Dr. Middleton, help appreciated Unclear if hyponatremia is due to cirrhosis or hypovolemia from diuretics. Patient previously on trial of NS 100 cc/hr without improvement Hypertonic saline solution on 08/09/17--corrected sodium to 130 Per nephrology to hold diuretics, continue aldactone as allowed by BP Per nephro, NaCL tab 1 gm BID and sodium bicarb supplement 1300 mg PO BID started on 08/15/17 Hypokalemia and Hypomagnesemia f/u and replete Patient intermittently refuses labs Magnesium Sulfate 2 bags were given today Anemia patient transfused 1 u PRBC on 07/20/17 Heme/onc consulted, Dr. Tran help appreciated stool occult blood negative Likely due from bone marrow suppression due to alcohol Tobacco use disorder Nicotine patch S/P Urinary Retention monitor urine output Elevated INR Vitamin K 5mg po daily for a total of 5 days (day 1 on 07/26, last dose to be given on 07/30) continue to monitor Prophylactic Measure/supportive care Pepcid 20mg po BID SCDs, Lovenox 40mg sc daily Simethicone 80mg po BID PT/OT Imodium prn Disposition: Patient with overall poor prognosis. Cirrhosis with ascites, severe pancreatic insufficiency. Patient now DNI/DNI after palliative care discussion. POLST form in the chart. We have moved to attempt to acquire a supply of pancreatic enzymes from [employer] program for the patient. One month supply of medications was secured for the patient ([facility] pancreatic enzymes, cholestyramine, lactulose, and Rifaximin[though only 15 day supply was available from the pharmacy]). Case DW Dr. Tomy Beth PGY-1 <Ruth Huitron - Last Filed: 08/20/17 12:17> Objective - Vital Signs/Intake and Output Vital Signs (last 24 hours): Temp Pulse Resp BP Pulse Ox 98.4 F 83 20 103/69 98 08/20/17 07:00 08/20/17 07:00 08/20/17 07:00 08/20/17 07:00 08/20/17 07:00 - Medications Medications: Current Medications Albuterol/Ipratropium (Duoneb 3 Mg/0.5 Mg (3 Ml) Ud) 3 ml INH RBID [facility] Last Admin: 08/19/17 19:21 Dose: 3 ml Cholestyramine Resin (Questran) 4 gm PO TIDPC [facility] Last Admin: 08/20/17 10:34 Dose: 4 gm Folic Acid (Folic Acid) 1 mg PO DAILY [facility] Last Admin: 08/20/17 10:33 Dose: 1 mg Lactulose (Enulose) 10 gm PO BID [facility] Last Admin: 08/20/17 10:37 Dose: 10 gm Pantoprazole Sodium (Protonix Ec Tab) 40 mg PO DAILY [facility] Last Admin: 08/20/17 10:33 Dose: 40 mg Petrolatum (Desitin Original) 1 gm TOP TID [facility] Last Admin: 08/20/17 10:33 Dose: 1 applic Rifaximin (Xifaxan) 550 mg PO BID [facility] Last Admin: 08/20/17 10:36 Dose: 550 mg Sodium Bicarbonate (Sodium Bicarbonate Tab) 1,300 mg PO TID [facility] Last Admin: 08/20/17 10:34 Dose: 1,300 mg Sodium Chloride (Sodium Chloride Tab) 1 gm PO BID [facility] Last Admin: 08/20/17 10:36 Dose: 1 gm Spironolactone (Aldactone) 50 mg PO BID [facility] Last Admin: 08/20/17 10:37 Dose: 50 mg Thiamine HCl (Vitamin B1 Tab) 100 mg PO BID [facility] Last Admin: 08/20/17 10:33 Dose: 100 mg - Labs Labs: 08/18/17 11:13 08/18/17 11:13 PT 17.9 SECONDS (9.7-12.2) H 08/16/17 07:11 INR 1.6 08/16/17 07:11 APTT 34 SECONDS (21-34) 07/18/17 13:52 Attending/Attestation - Attestation I have personally seen and examined this patient.: Yes I have fully participated in the care of the patient.: Yes I have reviewed all pertinent clinical information, including history, physical exam and plan: Yes Notes (Text): Seen and examined formed stool yesterday/no diarrhea hold lactulose PRN continue Pancreatic enzyme ,aldactone,folic acid,thiamin,xifaxan ,lactulose and cholestyramine One month medications supply ready Encourage to use bedside commode. out of bed to chair and ambulate
[2017-08-19] MEDS: LIPASE/PROTEASE/AMYLASE 21,000 U ECC PO SCH ×3 (08:11→19:35)
[2017-08-19] MEDS: Albuterol-Ipratrop 3 mg / 0.5 (3 ml) UD INH SCH ×2 (08:57→19:21)
[2017-08-19] MEDS: Pantoprazole 40 mg EC Tab PO SCH (09:32)
[2017-08-19] MEDS: Cholestyramine 4 gm/Pkt UD PO SCH ×3 (09:33→19:38)
[2017-08-19] MEDS: Zinc Oxide Topical 30 gm Tube TOP SCH ×3 (09:35→19:40)
--- NOTE | 2017-08-19 11:38 | CP.PCM.PN ---
Subjective - Date & Time of Evaluation Date of Evaluation: 08/19/17 Time of Evaluation: 11:35 - Subjective Subjective: Patient is chronically debilitated muscle wasting No significant changes reported Objective - Vital Signs/Intake and Output Vital Signs (last 24 hours): Temp Pulse Resp BP Pulse Ox 99.4 F 95 H 18 100/66 99 08/19/17 08:15 08/19/17 08:15 08/19/17 08:15 08/19/17 08:15 08/19/17 08:15 - Medications Medications: Current Medications Albuterol/Ipratropium (Duoneb 3 Mg/0.5 Mg (3 Ml) Ud) 3 ml INH RBID [facility] Last Admin: 08/19/17 08:57 Dose: Not Given Cholestyramine Resin (Questran) 4 gm PO TIDPC [facility] Last Admin: 08/19/17 09:33 Dose: 4 gm Folic Acid (Folic Acid) 1 mg PO DAILY [facility] Last Admin: 08/19/17 09:33 Dose: 1 mg Lactulose (Enulose) 10 gm PO BID [facility] Last Admin: 08/19/17 10:56 Dose: Not Given Pantoprazole Sodium (Protonix Ec Tab) 40 mg PO DAILY [facility] Last Admin: 08/19/17 09:32 Dose: 40 mg Petrolatum (Desitin Original) 1 gm TOP TID [facility] Last Admin: 08/19/17 09:35 Dose: 1 applic Rifaximin (Xifaxan) 550 mg PO BID [facility] Last Admin: 08/19/17 09:32 Dose: 550 mg Sodium Bicarbonate (Sodium Bicarbonate Tab) 1,300 mg PO TID [facility] Last Admin: 08/19/17 09:33 Dose: 1,300 mg Sodium Chloride (Sodium Chloride Tab) 1 gm PO BID [facility] Last Admin: 08/19/17 09:32 Dose: 1 gm Spironolactone (Aldactone) 50 mg PO BID [facility] Last Admin: 08/19/17 10:56 Dose: 50 mg Thiamine HCl (Vitamin B1 Tab) 100 mg PO BID [facility] Last Admin: 08/19/17 10:58 Dose: 100 mg - Labs Labs: 08/18/17 11:13 08/18/17 11:13 PT 17.9 SECONDS (9.7-12.2) H 08/16/17 07:11 INR 1.6 08/16/17 07:11 APTT 34 SECONDS (21-34) 07/18/17 13:52 - Constitutional Appears: Older Than Stated Age, Cachectic - Eye Exam Eye Exam: Conjunctival injection - Neck Exam Neck Exam: absent: Lymphadenopathy - Cardiovascular Exam Cardiovascular Exam: absent: JVD, Rubs - GI/Abdominal Exam GI & Abdominal Exam: Soft, Normal Bowel Sounds - Extremities Exam Extremities Exam: absent: Calf Tenderness - Back Exam Back Exam: absent: CVA tenderness (L), CVA tenderness (R) - Neurological Exam Neurological Exam: Alert - Psychiatric Exam Psychiatric exam: Normal Affect - Skin Skin Exam: absent: Cyanosis Assessment and Plan (1) Hyponatremia Assessment & Plan: Sodium remained about 130 We may have to give them a slight normal saline perhaps 10 mL/h for the next 24 hours and to see what happens to the serum sodium and serum sodium dropping down he will need Tolvaptan. Hyponatremia multifactorial, due to diuretics and ongoing GI volume loss due to enterocolitis, ADH stimulation, chronic etoh Cirrhosis, smoker and Etoh abuse Hypomagnesemia Plan continue to hold diuretics. continue with aldactone as allowed by BP supplement electrolytes as needed avoid correction in serum Na >6-8 meq/24 hr. started NaCl tab 1 gram bid. continue with bicarb supplements glycemic control supplement electrolytes as needed. Further work up as per primary team Status: Acute
[2017-08-20] MEDS: LIPASE/PROTEASE/AMYLASE 21,000 U ECC PO SCH ×3 (08:34→17:49)
[2017-08-20] MEDS: Zinc Oxide Topical 30 gm Tube TOP SCH ×3 (10:33→18:10)
[2017-08-20] MEDS: Pantoprazole 40 mg EC Tab PO SCH (10:33)
[2017-08-20] MEDS: Cholestyramine 4 gm/Pkt UD PO SCH ×3 (10:34→17:49)
--- NOTE | 2017-08-20 12:51 | CP.PCM.PN ---
<Edith Moore - Last Filed: 08/20/17 12:45> Subjective - Date & Time of Evaluation Date of Evaluation: 08/20/17 Time of Evaluation: 07:00 - Subjective Subjective: Medicine progress note for Dr. Huitron Patient seen and examined. Patient with ongoing diarrhea and abdominal tenderness improving today. Patient mentation is good today. No new complains or events overnight per nursing. The patient will be having a friend visit today ([facility] [phone]) who is trying to arrange for the patient to travel back to [facility]. We will try and talk with is friend when he comes to the hospital about plans for discharge. Objective - Vital Signs/Intake and Output Vital Signs (last 24 hours): Temp Pulse Resp BP Pulse Ox 98.4 F 83 20 103/69 98 08/20/17 07:00 08/20/17 07:00 08/20/17 07:00 08/20/17 07:00 08/20/17 07:00 - Medications Medications: Current Medications Albuterol/Ipratropium (Duoneb 3 Mg/0.5 Mg (3 Ml) Ud) 3 ml INH RBID [facility] Last Admin: 08/19/17 19:21 Dose: 3 ml Cholestyramine Resin (Questran) 4 gm PO TIDPC [facility] Last Admin: 08/20/17 10:34 Dose: 4 gm Folic Acid (Folic Acid) 1 mg PO DAILY [facility] Last Admin: 08/20/17 10:33 Dose: 1 mg Lactulose (Enulose) 10 gm PO BID [facility] Last Admin: 08/20/17 10:37 Dose: 10 gm Pantoprazole Sodium (Protonix Ec Tab) 40 mg PO DAILY [facility] Last Admin: 08/20/17 10:33 Dose: 40 mg Petrolatum (Desitin Original) 1 gm TOP TID [facility] Last Admin: 08/20/17 10:33 Dose: 1 applic Rifaximin (Xifaxan) 550 mg PO BID [facility] Last Admin: 08/20/17 10:36 Dose: 550 mg Sodium Bicarbonate (Sodium Bicarbonate Tab) 1,300 mg PO TID [facility] Last Admin: 08/20/17 10:34 Dose: 1,300 mg Sodium Chloride (Sodium Chloride Tab) 1 gm PO BID [facility] Last Admin: 08/20/17 10:36 Dose: 1 gm Spironolactone (Aldactone) 50 mg PO BID [facility] Last Admin: 08/20/17 10:37 Dose: 50 mg Thiamine HCl (Vitamin B1 Tab) 100 mg PO BID [facility] Last Admin: 08/20/17 10:33 Dose: 100 mg - Labs Labs: 08/18/17 11:13 08/18/17 11:13 PT 17.9 SECONDS (9.7-12.2) H 08/16/17 07:11 INR 1.6 08/16/17 07:11 APTT 34 SECONDS (21-34) 07/18/17 13:52 - Constitutional Appears: Non-toxic, No Acute Distress, Chronically Ill - Head Exam Head Exam: ATRAUMATIC, NORMAL INSPECTION - Eye Exam Eye Exam: EOMI - ENT Exam ENT Exam: Mucous Membranes Moist - Respiratory Exam Respiratory Exam: Clear to Ausculation Bilateral, NORMAL BREATHING PATTERN. absent: Respiratory Distress - Cardiovascular Exam Cardiovascular Exam: REGULAR RHYTHM, +S1, +S2 - GI/Abdominal Exam GI & Abdominal Exam: Soft, Normal Bowel Sounds. absent: Distended, Firm, Guarding, Tenderness - Extremities Exam Extremities Exam: Normal Inspection - Back Exam Back Exam: NORMAL INSPECTION - Neurological Exam Neurological Exam: Alert, Awake - Psychiatric Exam Psychiatric exam: Normal Affect, Normal Mood Assessment and Plan - Assessment and Plan (Free Text) Assessment: Ascites and hepatic encephalopathy Consult GI, Dr South, help appreciated CT abd/pelvis shows small to moderate ascites Paracentesis done 07/19/17 with 2.1 L straw colored fluid removed. * peritoneal fluid no growth * Fluid WBC: 147, RBC: 216, neut: 41, lymph: 43, monocyte/macrophage: 15 Repeat paracentesis 08/04/17--4 Liters removed. Replenished with albumin 12.5 gm x2 doses Ammonia level on 08/09: 57--Xifaximin 550 mg PO BID restarted Lactulose 10 mg PO BID with holding parameters in nursing communication to hold if more than 2 consecutive loose stool episodes. Fever, working diagnosis SBP though unlikely due to fluid WBCs Rocephin 1 gm daily empirically started on 08/15/17. Likely not SBP but will treat for total of 3 days Paracentesis 08/16/17--2.5 liters of straw colored fluid f/u fluid studies Colitis and Diarrhea No leukocytosis, afebrile giardia negative, stool ova and parasite negative, stool culture negative blood culture negative negative HIV and hep panel fecal fat study: normal c dif neg x 3 Desitin cream ordered for gluteal and sacral excoriations due to the uncontrolled loose stools. Excoriations improved. Imaging: CT abd/pelvis with IV contrast 07/17: Significant bowel wall thickening involving the colon, appearance most consistent with acute colitis, cannot exclude underlying neoplasm. Small to moderate ascites. Fatty infiltration of the liver. Heterogeneous appearance to hepatic parenchyma. Some of appearance may be due to transient hepatic attenuation differences, concern for underlying lesion. Meds: Cipro 400 IV daily--discontinued Flagyl 500 IV Q8--discontinued Endoscopy (07/28): small hiatal hernia, patchy mild inflammation in gastric antrum biopsies, scalloped mucosa found in duodenum, suspicious for celiac disease- biopsied Colonoscopy (07/28): internal hemorrhoids, mucosal nodule in the sigmoid colon, in transverse colon and in the ascending colon- biopsied Per Dr. South, he suspects pancreatic insufficiency as possible cause due to low stool pancreatic elastase and ordered an MRCP MRCP unable to be obtained due to patient restlessness Dr. South consulted Dr. Guerrero (help appreciated) for evaluation of possible chronic pancreatitis and possible EUS work up * Per Dr. Guerrero, pursue EUS as an outpatient for definitive diagnosis of chronic pancreatitis * Pancreatic enzymes were started with meals and Aldactone increased to 50 mg PO BID by GI team [place] [id number] units TID with meals Alcohol abuse/alcohol intoxication/alcohol withdrawal Elevated serum alcohol on admission 292 Seizure and aspiration precautions Ativan 1mg q4h prn for agitation Thiamine 100 mg daily Folic acid 1 mg daily Psych consult, Dr. Man, help appreciated. Detox completed. Hyponatremia Nephrology consult Dr. Middleton, help appreciated Unclear if hyponatremia is due to cirrhosis or hypovolemia from diuretics. Patient previously on trial of NS 100 cc/hr without improvement Hypertonic saline solution on 08/09/17--corrected sodium to 130 Per nephrology to hold diuretics, continue aldactone as allowed by BP Per nephro, NaCL tab 1 gm BID and sodium bicarb supplement 1300 mg PO BID started on 08/15/17 Hypokalemia and Hypomagnesemia K 4.2 today Mg 1.5 today - Magnesium Sulfate 2 bags were given today Anemia Hgb 9.6 stable patient transfused 1 u PRBC on 07/20/17 Heme/onc consulted, Dr. Tran help appreciated stool occult blood negative Likely due from bone marrow suppression due to alcohol Tobacco use disorder Nicotine patch S/P Urinary Retention monitor urine output Elevated INR Vitamin K 5mg po daily for a total of 5 days (day 1 on 07/26, last dose to be given on 07/30) continue to monitor Prophylactic Measure/supportive care Pepcid 20mg po BID SCDs, Lovenox 40mg sc daily Simethicone 80mg po BID PT/OT Imodium prn Disposition: Patient with overall poor prognosis. Cirrhosis with ascites, severe pancreatic insufficiency. Patient now DNI/DNI after palliative care discussion. POLST form in the chart. We have moved to attempt to acquire a supply of pancreatic enzymes from [employer] program for the patient. One month supply of medications was secured for the patient (Creon pancreatic enzymes, cholestyramine, lactulose, and Rifaximin[though only 15 day supply was available from the pharmacy]). Will discuss with patient's friend about possible DC plans. The friend apparently wants to help the patient to travel back to [place]. We will discuss with the friend when he comes to visit the hospital today. Case DW Dr. Tomy Moore PGY 2 <Ruth Huitron - Last Filed: 08/20/17 17:37> Objective - Vital Signs/Intake and Output Vital Signs (last 24 hours): Temp Pulse Resp BP Pulse Ox 98.2 F 80 20 105/67 98 08/20/17 15:00 08/20/17 15:00 08/20/17 15:00 08/20/17 15:00 08/20/17 15:00 - Medications Medications: Current Medications Albuterol/Ipratropium (Duoneb 3 Mg/0.5 Mg (3 Ml) Ud) 3 ml INH RBID [facility] Last Admin: 08/19/17 19:21 Dose: 3 ml Cholestyramine Resin (Questran) 4 gm PO TIDPC [facility] Last Admin: 08/20/17 13:30 Dose: 4 gm Folic Acid (Folic Acid) 1 mg PO DAILY [facility] Last Admin: 08/20/17 10:33 Dose: 1 mg Lactulose (Enulose) 10 gm PO BID [facility] Last Admin: 08/20/17 10:37 Dose: 10 gm Pantoprazole Sodium (Protonix Ec Tab) 40 mg PO DAILY [facility] Last Admin: 08/20/17 10:33 Dose: 40 mg Petrolatum (Desitin Original) 1 gm TOP TID [facility] Last Admin: 08/20/17 13:31 Dose: 1 applic Rifaximin (Xifaxan) 550 mg PO BID [facility] Last Admin: 08/20/17 10:36 Dose: 550 mg Sodium Bicarbonate (Sodium Bicarbonate Tab) 1,300 mg PO TID [facility] Last Admin: 08/20/17 10:34 Dose: 1,300 mg Sodium Chloride (Sodium Chloride Tab) 1 gm PO BID [facility] Last Admin: 08/20/17 10:36 Dose: 1 gm Spironolactone (Aldactone) 50 mg PO BID [facility] Last Admin: 08/20/17 10:37 Dose: 50 mg Thiamine HCl (Vitamin B1 Tab) 100 mg PO BID [facility] Last Admin: 08/20/17 10:33 Dose: 100 mg - Labs Labs: 08/18/17 11:13 08/18/17 11:13 PT 17.9 SECONDS (9.7-12.2) H 08/16/17 07:11 INR 1.6 08/16/17 07:11 APTT 34 SECONDS (21-34) 07/18/17 13:52 Attending/Attestation - Attestation I have personally seen and examined this patient.: Yes I have fully participated in the care of the patient.: Yes I have reviewed all pertinent clinical information, including history, physical exam and plan: Yes Notes (Text): 08/20/17 17:26 lying on bed,no complain Denies diarrhea, Patient with overall poor prognosis. Cirrhosis with ascites, severe pancreatic insufficiency. Patient now DNI/DNI after palliative care discussion. POLST form in the chart. One month supply of medications was secured for the patient (Creon pancreatic enzymes, cholestyramine, lactulose, and Rifaximin d/w resident I agree with the documentation of the resident's
[2017-08-20] MEDS: Magnesium Sulfate 1 gm in D5W 1 GM/100 ML BAG IVPB SCH ×2 (13:22→14:23)
--- NOTE | 2017-08-20 17:14 | CP.PCM.PN ---
Subjective - Date & Time of Evaluation Date of Evaluation: 08/20/17 Time of Evaluation: 14:50 - Subjective Subjective: Assessment: stable Hyponatremia multifactorial, due to diuretics and ongoing GI volume loss due to enterocolitis, ADH stimulation, chronic etoh Cirrhosis, smoker and Etoh abuse Hypomagnesemia Plan no labs today continue NaCl tab 1 gram bid. continue with bicarb supplements recommend fluid restriction to 1.2-1.3 liter per day glycemic control supplement electrolytes as needed. Physical Examination: General Appearance: Comfortable, in no acute respiratory distress, co-operative . ill appearing Head; Atraumatic, normocephalic ENT: no ulcers EYES: Sclera is anicteric. Neck; supple Lungs: Normal respiratory rate/effort. Breath sounds bilateral equal and clear Heart: normal rate. s1s2 normal. No rub or gallop. Extremities: no edema. No varicose veins Neurological: Patient is awake alert Skin: Warm and dry. Abdomen: Abdomen is soft. Bowel sounds +. has ascites Psych: limited insight Objective - Vital Signs/Intake and Output Vital Signs (last 24 hours): Temp Pulse Resp BP Pulse Ox 98.2 F 80 20 105/67 98 08/20/17 15:00 08/20/17 15:00 08/20/17 15:00 08/20/17 15:00 08/20/17 15:00 - Medications Medications: Current Medications Albuterol/Ipratropium (Duoneb 3 Mg/0.5 Mg (3 Ml) Ud) 3 ml INH RBID [facility] Last Admin: 08/19/17 19:21 Dose: 3 ml Cholestyramine Resin (Questran) 4 gm PO TIDPC [facility] Last Admin: 08/20/17 13:30 Dose: 4 gm Folic Acid (Folic Acid) 1 mg PO DAILY [facility] Last Admin: 08/20/17 10:33 Dose: 1 mg Lactulose (Enulose) 10 gm PO BID [facility] Last Admin: 08/20/17 10:37 Dose: 10 gm Pantoprazole Sodium (Protonix Ec Tab) 40 mg PO DAILY [facility] Last Admin: 08/20/17 10:33 Dose: 40 mg Petrolatum (Desitin Original) 1 gm TOP TID [facility] Last Admin: 08/20/17 13:31 Dose: 1 applic Rifaximin (Xifaxan) 550 mg PO BID [facility] Last Admin: 08/20/17 10:36 Dose: 550 mg Sodium Bicarbonate (Sodium Bicarbonate Tab) 1,300 mg PO TID [facility] Last Admin: 08/20/17 10:34 Dose: 1,300 mg Sodium Chloride (Sodium Chloride Tab) 1 gm PO BID [facility] Last Admin: 08/20/17 10:36 Dose: 1 gm Spironolactone (Aldactone) 50 mg PO BID [facility] Last Admin: 08/20/17 10:37 Dose: 50 mg Thiamine HCl (Vitamin B1 Tab) 100 mg PO BID [facility] Last Admin: 08/20/17 10:33 Dose: 100 mg - Labs Labs: 08/18/17 11:13 08/18/17 11:13 PT 17.9 SECONDS (9.7-12.2) H 08/16/17 07:11 INR 1.6 08/16/17 07:11 APTT 34 SECONDS (21-34) 07/18/17 13:52
[2017-08-20] MEDS: Albuterol-Ipratrop 3 mg / 0.5 (3 ml) UD INH SCH (19:15)
--- NOTE | 2017-08-21 00:51 | CP.PCM.PN ---
<Rebeka Toney - Last Filed: 08/21/17 06:11> Subjective - Date & Time of Evaluation Date of Evaluation: 08/21/17 Time of Evaluation: 06:00 - Subjective Subjective: Medicine progress note for Dr. Huitron Patient seen and examined. Patient with ongoing diarrhea and abdominal tenderness improving today. Patient mentation is good today. No new complains or events overnight per nursing. Objective - Vital Signs/Intake and Output Vital Signs (last 24 hours): Temp Pulse Resp BP Pulse Ox 98.2 F 88 20 105/67 98 08/20/17 15:00 08/20/17 16:10 08/20/17 15:00 08/20/17 15:00 08/20/17 15:00 - Medications Medications: Current Medications Albuterol/Ipratropium (Duoneb 3 Mg/0.5 Mg (3 Ml) Ud) 3 ml INH RBID [facility] Last Admin: 08/20/17 19:15 Dose: Not Given Cholestyramine Resin (Questran) 4 gm PO TIDPC [facility] Last Admin: 08/20/17 17:49 Dose: 4 gm Folic Acid (Folic Acid) 1 mg PO DAILY [facility] Last Admin: 08/20/17 10:33 Dose: 1 mg Lactulose (Enulose) 10 gm PO BID [facility] Last Admin: 08/20/17 17:48 Dose: 10 gm Pantoprazole Sodium (Protonix Ec Tab) 40 mg PO DAILY [facility] Last Admin: 08/20/17 10:33 Dose: 40 mg Petrolatum (Desitin Original) 1 gm TOP TID [facility] Last Admin: 08/20/17 13:31 Dose: 1 applic Rifaximin (Xifaxan) 550 mg PO BID [facility] Last Admin: 08/20/17 17:50 Dose: 550 mg Sodium Bicarbonate (Sodium Bicarbonate Tab) 1,300 mg PO TID [facility] Last Admin: 08/20/17 17:49 Dose: 1,300 mg Sodium Chloride (Sodium Chloride Tab) 1 gm PO BID [facility] Last Admin: 08/20/17 17:50 Dose: 1 gm Spironolactone (Aldactone) 50 mg PO BID [facility] Last Admin: 08/20/17 17:51 Dose: 50 mg Thiamine HCl (Vitamin B1 Tab) 100 mg PO BID [facility] Last Admin: 08/20/17 17:52 Dose: 100 mg - Labs Labs: 08/18/17 11:13 08/18/17 11:13 PT 17.9 SECONDS (9.7-12.2) H 08/16/17 07:11 INR 1.6 08/16/17 07:11 APTT 34 SECONDS (21-34) 07/18/17 13:52 - Constitutional Appears: No Acute Distress, Chronically Ill - Head Exam Head Exam: ATRAUMATIC, NORMAL INSPECTION - Eye Exam Eye Exam: EOMI - ENT Exam ENT Exam: Mucous Membranes Moist - Respiratory Exam Respiratory Exam: Clear to Ausculation Bilateral, NORMAL BREATHING PATTERN - Cardiovascular Exam Cardiovascular Exam: REGULAR RHYTHM, +S1, +S2 - GI/Abdominal Exam GI & Abdominal Exam: Soft, Normal Bowel Sounds. absent: Tenderness - Extremities Exam Extremities Exam: Normal Inspection - Neurological Exam Neurological Exam: Alert, Awake - Psychiatric Exam Psychiatric exam: Normal Affect, Normal Mood Assessment and Plan - Assessment and Plan (Free Text) Assessment: Ascites and hepatic encephalopathy Consult GI, Dr South, help appreciated CT abd/pelvis shows small to moderate ascites Paracentesis done 07/19/17 with 2.1 L straw colored fluid removed. * peritoneal fluid no growth * Fluid WBC: 147, RBC: 216, neut: 41, lymph: 43, monocyte/macrophage: 15 Repeat paracentesis 08/04/17--4 Liters removed. Replenished with albumin 12.5 gm x2 doses Ammonia level on 08/09: 57--Xifaximin 550 mg PO BID restarted Lactulose 10 mg PO BID with holding parameters in nursing communication to hold if more than 2 consecutive loose stool episodes. Fever, working diagnosis SBP though unlikely due to fluid WBCs Rocephin 1 gm daily empirically started on 08/15/17. Likely not SBP but will treat for total of 3 days Paracentesis 08/16/17--2.5 liters of straw colored fluid f/u fluid studies Colitis and Diarrhea No leukocytosis, afebrile giardia negative, stool ova and parasite negative, stool culture negative blood culture negative negative HIV and hep panel fecal fat study: normal c dif neg x 3 Desitin cream ordered for gluteal and sacral excoriations due to the uncontrolled loose stools. Excoriations improved. Imaging: CT abd/pelvis with IV contrast 07/17: Significant bowel wall thickening involving the colon, appearance most consistent with acute colitis, cannot exclude underlying neoplasm. Small to moderate ascites. Fatty infiltration of the liver. Heterogeneous appearance to hepatic parenchyma. Some of appearance may be due to transient hepatic attenuation differences, concern for underlying lesion. Meds: Cipro 400 IV daily--discontinued Flagyl 500 IV Q8--discontinued Endoscopy (07/28): small hiatal hernia, patchy mild inflammation in gastric antrum biopsies, scalloped mucosa found in duodenum, suspicious for celiac disease- biopsied Colonoscopy (07/28): internal hemorrhoids, mucosal nodule in the sigmoid colon, in transverse colon and in the ascending colon- biopsied Per Dr. South, he suspects pancreatic insufficiency as possible cause due to low stool pancreatic elastase and ordered an MRCP MRCP unable to be obtained due to patient restlessness Dr. South consulted Dr. Guerrero (help appreciated) for evaluation of possible chronic pancreatitis and possible EUS work up * Per Dr. Guerrero, pursue EUS as an outpatient for definitive diagnosis of chronic pancreatitis * Pancreatic enzymes were started with meals and Aldactone increased to 50 mg PO BID by GI team [place] [address] units TID with meals Alcohol abuse/alcohol intoxication/alcohol withdrawal Elevated serum alcohol on admission 292 Seizure and aspiration precautions Ativan 1mg q4h prn for agitation Thiamine 100 mg daily Folic acid 1 mg daily Psych consult, Dr. Man, help appreciated. Detox completed. Hyponatremia Nephrology consult Dr. Middleton, help appreciated Unclear if hyponatremia is due to cirrhosis or hypovolemia from diuretics. Patient previously on trial of NS 100 cc/hr without improvement Hypertonic saline solution on 08/09/17--corrected sodium to 130 Per nephrology to hold diuretics, continue aldactone as allowed by BP Per nephro, NaCL tab 1 gm BID and sodium bicarb supplement 1300 mg PO BID started on 08/15/17 Hypokalemia and Hypomagnesemia K 4.2 today Mg 1.5 today - Magnesium Sulfate 2 bags were given today Anemia Hgb 9.6 stable patient transfused 1 u PRBC on 07/20/17 Heme/onc consulted, Dr. Tran help appreciated stool occult blood negative Likely due from bone marrow suppression due to alcohol Tobacco use disorder Nicotine patch S/P Urinary Retention monitor urine output Elevated INR Vitamin K 5mg po daily for a total of 5 days (day 1 on 07/26, last dose to be given on 07/30) continue to monitor Prophylactic Measure/supportive care Pepcid 20mg po BID SCDs, Lovenox 40mg sc daily Simethicone 80mg po BID PT/OT Imodium prn Disposition: Patient with overall poor prognosis. Cirrhosis with ascites, severe pancreatic insufficiency. Patient now DNI/DNI after palliative care discussion. POLST form in the chart. We have moved to attempt to acquire a supply of pancreatic enzymes from [facility] for the patient. One month supply of medications was secured for the patient (Creon pancreatic enzymes, cholestyramine, lactulose, and Rifaximin[though only 15 day supply was available from the pharmacy]). Will discuss with patient's friend about possible DC plans. The friend apparently wants to help the patient to travel back to [place]. We will discuss with the friend when he comes to visit the hospital today. <Ruth Huitron - Last Filed: 08/21/17 10:31> Objective - Vital Signs/Intake and Output Vital Signs (last 24 hours): Temp Pulse Resp BP Pulse Ox 99.4 F 89 20 85/65 L 97 08/21/17 08:41 08/21/17 08:41 08/21/17 08:41 08/21/17 08:41 08/21/17 08:41 Intake and Output: 08/21/17 08/21/17 06:59 18:59 Intake Total 150 Balance 150 - Medications Medications: Current Medications Albuterol/Ipratropium (Duoneb 3 Mg/0.5 Mg (3 Ml) Ud) 3 ml INH RBID [facility] Last Admin: 08/21/17 09:00 Dose: 3 ml Cholestyramine Resin (Questran) 4 gm PO TIDPC [facility] Last Admin: 08/21/17 09:12 Dose: 4 gm Folic Acid (Folic Acid) 1 mg PO DAILY [facility] Last Admin: 08/21/17 09:12 Dose: 1 mg Lactulose (Enulose) 10 gm PO BID [facility] Last Admin: 08/21/17 09:13 Dose: Not Given Pantoprazole Sodium (Protonix Ec Tab) 40 mg PO DAILY [facility] Last Admin: 08/21/17 09:12 Dose: 40 mg Petrolatum (Desitin Original) 1 gm TOP TID [facility] Last Admin: 08/21/17 09:13 Dose: 1 applic Rifaximin (Xifaxan) 550 mg PO BID [facility] Last Admin: 08/21/17 09:12 Dose: 550 mg Sodium Bicarbonate (Sodium Bicarbonate Tab) 1,300 mg PO TID [facility] Last Admin: 08/21/17 09:12 Dose: 1,300 mg Sodium Chloride (Sodium Chloride Tab) 1 gm PO BID [facility] Last Admin: 08/20/17 17:50 Dose: 1 gm Spironolactone (Aldactone) 50 mg PO BID [facility] Last Admin: 08/21/17 09:13 Dose: 50 mg Thiamine HCl (Vitamin B1 Tab) 100 mg PO BID [facility] Last Admin: 08/21/17 09:12 Dose: 100 mg - Labs Labs: 08/21/17 07:25 08/21/17 07:25 PT 17.9 SECONDS (9.7-12.2) H 08/16/17 07:11 INR 1.6 08/16/17 07:11 APTT 34 SECONDS (21-34) 07/18/17 13:52 Attending/Attestation - Attestation I have personally seen and examined this patient.: Yes I have fully participated in the care of the patient.: Yes I have reviewed all pertinent clinical information, including history, physical exam and plan: Yes Notes (Text): Seen and examined No complain. Had his lactulose last night.This morning loose BM. Able to sit on his bedside commode. No abdominal pain, continue current meds,monitor BP we will discuss with his friend about contacting his family in [place]. I agree with the assessment and the plan of the resident
[2017-08-21 07:59] LABS: BASO # 0.1 K/uL (0.0-0.2); BASO % 1.1 % (0.0-2.0); EOS # 0.1 K/uL (0.0-0.7); EOS % 1.8 % (0.0-4.0); LYMPH % 28.6 % (20.0-40.0); MEAN CORPUSCULAR HEMOGLOBIN 29.9 pg (27.0-31.0); MEAN CORPUSCULAR HGB CONC 34.4 g/dL (33.0-37.0); MEAN PLATELET VOLUME 9.7 fL (7.2-11.7); MONO # 0.6 K/uL (0.0-0.8); MONO % 8.9 % (0.0-10.0); NEUT # 4.1 K/uL (1.8-7.0); NEUT % 59.6 % (50.0-75.0); NRBC % 0.1 % (0.0-2.0); RBC 2.67 Mil/uL (4.40-5.90); RED CELL DISTRIBUTION WIDTH 17.2 % (11.5-14.5); WHITE BLOOD COUNT 6.9 K/uL (4.8-10.8)
[2017-08-21] MEDS: LIPASE/PROTEASE/AMYLASE 21,000 U ECC PO SCH ×3 (08:02→18:08)
[2017-08-21 08:10] LABS: MEAN CELL VOLUME 86.7 fL (80.0-94.0)
[2017-08-21 08:21] LABS: ALB/GLOB RATIO 0.6 (1.0-2.1); ALT/SGPT 38 U/L (21-72); AST/SGOT 97 U/L (17-59); BLOOD UREA NITROGEN 11 mg/dL (9-20); CALCIUM 7.7 mg/dl (8.6-10.4); GFR AFRICAN-AMERICAN > 60; GFR NON-AFRICAN AMERICAN > 60; MAGNESIUM 1.6 mg/dL (1.6-2.3)
[2017-08-21] MEDS: Albuterol-Ipratrop 3 mg / 0.5 (3 ml) UD INH SCH ×2 (09:00→19:37)
[2017-08-21] MEDS: Pantoprazole 40 mg EC Tab PO SCH (09:12)
[2017-08-21] MEDS: Cholestyramine 4 gm/Pkt UD PO SCH ×3 (09:12→18:10)
[2017-08-21] MEDS: Zinc Oxide Topical 30 gm Tube TOP SCH ×3 (09:13→18:09)
[2017-08-22] MEDS: Albuterol-Ipratrop 3 mg / 0.5 (3 ml) UD INH SCH ×2 (07:15→20:44)
--- NOTE | 2017-08-22 07:50 | CP.PCM.PN ---
Subjective - Date & Time of Evaluation Date of Evaluation: 08/22/17 Time of Evaluation: 07:00 - Subjective Subjective: Medicine progress note for Dr. Evans Patient seen and examined. Patient with intermittent loose stools and continued abdominal tenderness. No events overnight. Patient refused morning labs this morning but was amenable later during the day. Objective - Vital Signs/Intake and Output Vital Signs (last 24 hours): Temp Pulse Resp BP Pulse Ox 99.0 F 82 20 100/63 98 08/21/17 23:55 08/22/17 04:00 08/21/17 23:55 08/21/17 23:55 08/21/17 23:55 Intake and Output: 08/22/17 08/22/17 06:59 18:59 Intake Total 150 Balance 150 - Medications Medications: Current Medications Albuterol/Ipratropium (Duoneb 3 Mg/0.5 Mg (3 Ml) Ud) 3 ml INH RBID [facility] Last Admin: 08/21/17 19:37 Dose: 3 ml Cholestyramine Resin (Questran) 4 gm PO TIDPC [facility] Last Admin: 08/21/17 18:10 Dose: 4 gm Folic Acid (Folic Acid) 1 mg PO DAILY [facility] Last Admin: 08/21/17 09:12 Dose: 1 mg Lactulose (Enulose) 10 gm PO BID [facility] Last Admin: 08/21/17 18:10 Dose: Not Given Pantoprazole Sodium (Protonix Ec Tab) 40 mg PO DAILY [facility] Last Admin: 08/21/17 09:12 Dose: 40 mg Petrolatum (Desitin Original) 1 gm TOP TID [facility] Last Admin: 08/21/17 18:09 Dose: 1 applic Rifaximin (Xifaxan) 550 mg PO BID [facility] Last Admin: 08/21/17 18:11 Dose: 550 mg Sodium Bicarbonate (Sodium Bicarbonate Tab) 1,300 mg PO TID [facility] Last Admin: 08/21/17 18:11 Dose: 1,300 mg Sodium Chloride (Sodium Chloride Tab) 1 gm PO BID [facility] Last Admin: 08/21/17 18:11 Dose: 1 gm Spironolactone (Aldactone) 50 mg PO BID [facility] Last Admin: 08/21/17 18:09 Dose: 50 mg Thiamine HCl (Vitamin B1 Tab) 100 mg PO BID [facility] Last Admin: 08/21/17 18:11 Dose: 100 mg - Labs Labs: 08/21/17 07:25 08/21/17 07:25 PT 17.9 SECONDS (9.7-12.2) H 08/16/17 07:11 INR 1.6 08/16/17 07:11 APTT 34 SECONDS (21-34) 07/18/17 13:52 - Additional Findings Additional findings: - Constitutional Appears: No Acute Distress, Chronically Ill - Head Exam Head Exam: ATRAUMATIC, NORMAL INSPECTION - Eye Exam Eye Exam: EOMI, Normal appearance - ENT Exam ENT Exam: Mucous Membranes Moist - Respiratory Exam Respiratory Exam: Clear to Ausculation Bilateral, NORMAL BREATHING PATTERN, Wheezing - Cardiovascular Exam Cardiovascular Exam: REGULAR RHYTHM, +S1, +S2 - GI/Abdominal Exam GI & Abdominal Exam: Soft, Tenderness (diffuse), Normal Bowel Sounds, Non- distended - Neurological Exam Neurological Exam: Alert, Awake, Oriented x3 - Psychiatric Exam Psychiatric exam: Normal Affect, Normal Mood - Skin Skin Exam: Dry, Warm Assessment and Plan - Assessment and Plan (Free Text) Plan: Ascites and hepatic encephalopathy Consult GI, Dr South, help appreciated CT abd/pelvis shows small to moderate ascites Paracentesis done 07/19/17 with 2.1 L straw colored fluid removed. * peritoneal fluid no growth * Fluid WBC: 147, RBC: 216, neut: 41, lymph: 43, monocyte/macrophage: 15 Repeat paracentesis 08/04/17--4 Liters removed. Replenished with albumin 12.5 gm x2 doses Ammonia level on 08/09: 57--Xifaximin 550 mg PO BID restarted Lactulose 10 mg PO BID with holding parameters in nursing communication to hold if more than 2 consecutive loose stool episodes. Fever, working diagnosis SBP though unlikely due to fluid WBCs Rocephin 1 gm daily empirically started on 08/15/17. Likely not SBP but will treat for total of 3 days Paracentesis 08/16/17--2.5 liters of straw colored fluid f/u fluid studies Colitis and Diarrhea No leukocytosis, afebrile giardia negative, stool ova and parasite negative, stool culture negative blood culture negative negative HIV and hep panel fecal fat study: normal c dif neg x 3 Desitin cream ordered for gluteal and sacral excoriations due to the uncontrolled loose stools. Excoriations improved. Imaging: CT abd/pelvis with IV contrast 07/17: Significant bowel wall thickening involving the colon, appearance most consistent with acute colitis, cannot exclude underlying neoplasm. Small to moderate ascites. Fatty infiltration of the liver. Heterogeneous appearance to hepatic parenchyma. Some of appearance may be due to transient hepatic attenuation differences, concern for underlying lesion. Meds: Cipro 400 IV daily--discontinued Flagyl 500 IV Q8--discontinued Endoscopy (07/28): small hiatal hernia, patchy mild inflammation in gastric antrum biopsies, scalloped mucosa found in duodenum, suspicious for celiac disease- biopsied Colonoscopy (07/28): internal hemorrhoids, mucosal nodule in the sigmoid colon, in transverse colon and in the ascending colon- biopsied Per Dr. South, he suspects pancreatic insufficiency as possible cause due to low stool pancreatic elastase and ordered an MRCP MRCP unable to be obtained due to patient restlessness Dr. South consulted Dr. Guerrero (help appreciated) for evaluation of possible chronic pancreatitis and possible EUS work up * Per Dr. Guerrero, pursue EUS as an outpatient for definitive diagnosis of chronic pancreatitis * Pancreatic enzymes were started with meals and Aldactone increased to 50 mg PO BID by GI team [place] [address] units TID with meals Alcohol abuse/alcohol intoxication/alcohol withdrawal Elevated serum alcohol on admission 292 Seizure and aspiration precautions Ativan 1mg q4h prn for agitation Thiamine 100 mg daily Folic acid 1 mg daily Psych consult, Dr. Man, help appreciated. Detox completed. Hyponatremia Nephrology consult Dr. Middleton, help appreciated Unclear if hyponatremia is due to cirrhosis or hypovolemia from diuretics. Patient previously on trial of NS 100 cc/hr without improvement Hypertonic saline solution on 08/09/17--corrected sodium to 130 Per nephrology to hold diuretics, continue aldactone as allowed by BP Per nephro, NaCL tab 1 gm BID and sodium bicarb supplement 1300 mg PO BID started on 08/15/17 Hypokalemia and Hypomagnesemia Monitor and replete, though patient will intermittently refuse labs Anemia Hgb 9.6 stable patient transfused 1 u PRBC on 07/20/17 Heme/onc consulted, Dr. Tran help appreciated stool occult blood negative Likely due from bone marrow suppression due to alcohol Tobacco use disorder Nicotine patch S/P Urinary Retention monitor urine output Elevated INR Vitamin K 5mg po daily for a total of 5 days (day 1 on 07/26, last dose to be given on 07/30) continue to monitor Prophylactic Measure/supportive care Pepcid 20mg po BID SCDs, Lovenox 40mg sc daily Simethicone 80mg po BID PT/OT Imodium prn Disposition: Patient with overall poor prognosis. Cirrhosis with ascites, severe pancreatic insufficiency. Patient now DNI/DNI after palliative care discussion. POLST form in the chart. We have moved to attempt to acquire a supply of pancreatic enzymes from [employer] program for the patient. One month supply of medications was secured for the patient (Creon pancreatic enzymes, cholestyramine, lactulose, and Rifaximin[though only 15 day supply was available from the pharmacy]). Will discuss with patient's friend about possible DC plans. The friend apparently wants to help the patient to travel back to [place]. Case DW Dr. Cristina Beth PGY-1
[2017-08-22] MEDS: LIPASE/PROTEASE/AMYLASE 21,000 U ECC PO SCH ×3 (08:03→18:09)
[2017-08-22] MEDS: Cholestyramine 4 gm/Pkt UD PO SCH ×3 (08:03→18:09)
[2017-08-22] MEDS: Pantoprazole 40 mg EC Tab PO SCH (09:38)
[2017-08-22] MEDS: Zinc Oxide Topical 30 gm Tube TOP SCH ×3 (09:38→18:18)
--- NOTE | 2017-08-22 11:28 | CP.PCM.PN ---
Subjective - Date & Time of Evaluation Date of Evaluation: 08/22/17 Time of Evaluation: 10:25 - Subjective Subjective: RENAL FOLLOW UP Hyponatremia multifactorial, due to diuretics and ongoing GI volume loss due to enterocolitis, ADH stimulation, chronic etoh Cirrhosis, smoker and Etoh abuse Hypomagnesemia Plan no labs yet today na yesterday 128 on salt tabs on bicarb supplement, continue fluid restriction S: seen and examined has no complaints Physical Examination: General Appearance: Comfortable, in no acute respiratory distress, co-operative . ill appearing Head; Atraumatic, normocephalic ENT: no ulcers EYES: Sclera is anicteric. Neck; supple Lungs: Normal respiratory rate/effort. Breath sounds bilateral equal and clear Heart: normal rate. s1s2 normal. No rub or gallop. Extremities: no edema. No varicose veins Neurological: Patient is awake alert Skin: Warm and dry. Abdomen: Abdomen is soft. Bowel sounds +. + fluid wave Psych: limited insight Objective - Vital Signs/Intake and Output Vital Signs (last 24 hours): Temp Pulse Resp BP Pulse Ox 97.8 F 95 H 20 108/69 99 08/22/17 08:05 08/22/17 08:05 08/22/17 08:05 08/22/17 08:05 08/22/17 08:05 Intake and Output: 08/22/17 08/22/17 06:59 18:59 Intake Total 150 Balance 150 - Medications Medications: Current Medications Albuterol/Ipratropium (Duoneb 3 Mg/0.5 Mg (3 Ml) Ud) 3 ml INH RBID [facility] Last Admin: 08/22/17 07:15 Dose: 3 ml Cholestyramine Resin (Questran) 4 gm PO TIDPC [facility] Last Admin: 08/22/17 08:03 Dose: 4 gm Folic Acid (Folic Acid) 1 mg PO DAILY [facility] Last Admin: 08/22/17 09:38 Dose: 1 mg Lactulose (Enulose) 10 gm PO BID [facility] Last Admin: 08/22/17 09:38 Dose: Not Given Pantoprazole Sodium (Protonix Ec Tab) 40 mg PO DAILY [facility] Last Admin: 08/22/17 09:38 Dose: 40 mg Petrolatum (Desitin Original) 1 gm TOP TID [facility] Last Admin: 08/22/17 09:38 Dose: 1 applic Rifaximin (Xifaxan) 550 mg PO BID [facility] Last Admin: 08/22/17 09:37 Dose: 550 mg Sodium Bicarbonate (Sodium Bicarbonate Tab) 1,300 mg PO TID [facility] Last Admin: 08/22/17 09:37 Dose: 1,300 mg Sodium Chloride (Sodium Chloride Tab) 1 gm PO BID [facility] Last Admin: 08/22/17 09:38 Dose: 1 gm Spironolactone (Aldactone) 50 mg PO BID [facility] Last Admin: 08/22/17 09:38 Dose: 50 mg Thiamine HCl (Vitamin B1 Tab) 100 mg PO BID [facility] Last Admin: 08/22/17 09:38 Dose: 100 mg - Labs Labs: 08/21/17 07:25 08/21/17 07:25 PT 17.9 SECONDS (9.7-12.2) H 08/16/17 07:11 INR 1.6 08/16/17 07:11 APTT 34 SECONDS (21-34) 07/18/17 13:52
[2017-08-22 11:49] LABS: BASO # 0.1 K/uL (0.0-0.2); BASO % 1.4 % (0.0-2.0); EOS % 0.6 % (0.0-4.0); LYMPH # 1.9 K/uL (1.0-4.3); LYMPH % 25.3 % (20.0-40.0); MEAN CELL VOLUME 87.5 fL (80.0-94.0); MEAN CORPUSCULAR HEMOGLOBIN 29.9 pg (27.0-31.0); MEAN CORPUSCULAR HGB CONC 34.1 g/dL (33.0-37.0); MEAN PLATELET VOLUME 9.7 fL (7.2-11.7); MONO # 0.7 K/uL (0.0-0.8); MONO % 9.1 % (0.0-10.0); NEUT # 4.7 K/uL (1.8-7.0); NEUT % 63.6 % (50.0-75.0); RBC 2.68 Mil/uL (4.40-5.90); RED CELL DISTRIBUTION WIDTH 17.6 % (11.5-14.5); WHITE BLOOD COUNT 7.4 K/uL (4.8-10.8)
[2017-08-22 12:04] LABS: ALB/GLOB RATIO 0.6 (1.0-2.1); ALBUMIN 2.2 g/dL (3.5-5.0); ALT/SGPT 39 U/L (21-72); AST/SGOT 81 U/L (17-59); BLOOD UREA NITROGEN 10 mg/dL (9-20); CALCIUM 7.8 mg/dl (8.6-10.4); GFR AFRICAN-AMERICAN > 60; GFR NON-AFRICAN AMERICAN > 60; MAGNESIUM 1.4 mg/dL (1.6-2.3)
[2017-08-22] MEDS: Magnesium Sulfate 1 gm in D5W 1 GM/100 ML BAG IVPB SCH ×3 (13:39→15:04)
--- NOTE | 2017-08-23 04:52 | CP.PCM.PN ---
<Tima Beth - Last Filed: 08/23/17 14:56> Subjective - Date & Time of Evaluation Date of Evaluation: 08/23/17 Time of Evaluation: 07:40 - Subjective Subjective: Medicine progress note for Dr. Evans Patient seen and examined. Patient states that he remains unchanged from before. Patient states that he had 2 bowel movements overnight. Per nursing staff, one of them had formed elements. Patient remains with weakness and is mostly bedbound. Objective - Vital Signs/Intake and Output Vital Signs (last 24 hours): Temp Pulse Resp BP Pulse Ox 98.7 F 96 H 20 117/73 98 08/22/17 23:00 08/22/17 23:00 08/22/17 23:00 08/22/17 23:00 08/22/17 23:00 - Medications Medications: Current Medications Albuterol/Ipratropium (Duoneb 3 Mg/0.5 Mg (3 Ml) Ud) 3 ml INH RBID [facility] Last Admin: 08/22/17 20:44 Dose: 3 ml Cholestyramine Resin (Questran) 4 gm PO TIDPC [facility] Last Admin: 08/22/17 18:09 Dose: 4 gm Folic Acid (Folic Acid) 1 mg PO DAILY [facility] Last Admin: 08/22/17 09:38 Dose: 1 mg Lactulose (Enulose) 10 gm PO BID [facility] Last Admin: 08/22/17 18:08 Dose: 10 gm Pantoprazole Sodium (Protonix Ec Tab) 40 mg PO DAILY [facility] Last Admin: 08/22/17 09:38 Dose: 40 mg Petrolatum (Desitin Original) 1 gm TOP TID [facility] Last Admin: 08/22/17 18:18 Dose: 1 applic Rifaximin (Xifaxan) 550 mg PO BID [facility] Last Admin: 08/22/17 18:10 Dose: 550 mg Sodium Bicarbonate (Sodium Bicarbonate Tab) 1,300 mg PO TID [facility] Last Admin: 08/22/17 18:22 Dose: 1,300 mg Sodium Chloride (Sodium Chloride Tab) 1 gm PO BID [facility] Last Admin: 08/22/17 18:09 Dose: 1 gm Spironolactone (Aldactone) 50 mg PO BID [facility] Last Admin: 08/22/17 18:11 Dose: 50 mg Thiamine HCl (Vitamin B1 Tab) 100 mg PO BID [facility] Last Admin: 08/22/17 18:23 Dose: 100 mg - Labs Labs: 08/22/17 11:37 08/22/17 11:37 PT 17.9 SECONDS (9.7-12.2) H 08/16/17 07:11 INR 1.6 08/16/17 07:11 APTT 34 SECONDS (21-34) 07/18/17 13:52 - Additional Findings Additional findings: - Constitutional Appears: No Acute Distress, Chronically Ill - Head Exam Head Exam: ATRAUMATIC, NORMAL INSPECTION - Eye Exam Eye Exam: EOMI, Normal appearance - ENT Exam ENT Exam: Mucous Membranes Moist - Respiratory Exam Respiratory Exam: Clear to Auscultation Bilateral, NORMAL BREATHING PATTERN, Wheezing - Cardiovascular Exam Cardiovascular Exam: REGULAR RHYTHM, +S1, +S2 - GI/Abdominal Exam GI & Abdominal Exam: Soft, Tenderness (diffuse), Normal Bowel Sounds, Non- distended - Neurological Exam Neurological Exam: Alert, Awake, Oriented x3 - Psychiatric Exam Psychiatric exam: Normal Affect, Normal Mood - Skin Skin Exam: Dry, Warm Assessment and Plan - Assessment and Plan (Free Text) Plan: Ascites and hepatic encephalopathy Consult GI, Dr South, help appreciated CT abd/pelvis shows small to moderate ascites Paracentesis done 07/19/17 with 2.1 L straw colored fluid removed. * peritoneal fluid no growth * Fluid WBC: 147, RBC: 216, neut: 41, lymph: 43, monocyte/macrophage: 15 Repeat paracentesis 08/04/17--4 Liters removed. Replenished with albumin 12.5 gm x2 doses Ammonia level on 08/09: 57--Xifaximin 550 mg PO BID restarted Lactulose 10 mg PO BID with holding parameters in nursing communication to hold if more than 2 consecutive loose stool episodes. Fever, working diagnosis SBP though unlikely due to fluid WBCs Rocephin 1 gm daily empirically started on 08/15/17. Likely not SBP but will treat for total of 3 days Paracentesis 08/16/17--2.5 liters of straw colored fluid f/u fluid studies Colitis and Diarrhea No leukocytosis, afebrile giardia negative, stool ova and parasite negative, stool culture negative blood culture negative negative HIV and hep panel fecal fat study: normal c dif neg x 3 Desitin cream ordered for gluteal and sacral excoriations due to the uncontrolled loose stools. Excoriations improved. Imaging: CT abd/pelvis with IV contrast 07/17: Significant bowel wall thickening involving the colon, appearance most consistent with acute colitis, cannot exclude underlying neoplasm. Small to moderate ascites. Fatty infiltration of the liver. Heterogeneous appearance to hepatic parenchyma. Some of appearance may be due to transient hepatic attenuation differences, concern for underlying lesion. Meds: Cipro 400 IV daily--discontinued Flagyl 500 IV Q8--discontinued Endoscopy (07/28): small hiatal hernia, patchy mild inflammation in gastric antrum biopsies, scalloped mucosa found in duodenum, suspicious for celiac disease- biopsied Colonoscopy (07/28): internal hemorrhoids, mucosal nodule in the sigmoid colon, in transverse colon and in the ascending colon- biopsied Per Dr. South, he suspects pancreatic insufficiency as possible cause due to low stool pancreatic elastase and ordered an MRCP MRCP unable to be obtained due to patient restlessness Dr. South consulted Dr. Guerrero (help appreciated) for evaluation of possible chronic pancreatitis and possible EUS work up * Per Dr. Guerrero, pursue EUS as an outpatient for definitive diagnosis of chronic pancreatitis * Pancreatic enzymes were started with meals and Aldactone increased to 50 mg PO BID by GI team [place] [address] units TID with meals Alcohol abuse/alcohol intoxication/alcohol withdrawal Elevated serum alcohol on admission 292 Seizure and aspiration precautions Ativan 1mg q4h prn for agitation Thiamine 100 mg daily Folic acid 1 mg daily Psych consult, Dr. Man, help appreciated. Detox completed. Hyponatremia Nephrology consult Dr. Middleton, help appreciated Unclear if hyponatremia is due to cirrhosis or hypovolemia from diuretics. Patient previously on trial of NS 100 cc/hr without improvement Hypertonic saline solution on 08/09/17--corrected sodium to 130 Per nephrology to hold diuretics, continue aldactone as allowed by BP Per nephro, NaCL tab 1 gm BID and sodium bicarb supplement 1300 mg PO BID started on 08/15/17 One dose of Tolvaptan given on 08/23/17 by nephro with f/u BMP in the evening, although note that patient has refused lab work this morning. Hypokalemia and Hypomagnesemia Monitor and replete, though patient will intermittently refuse labs Anemia Stable patient transfused 1 u PRBC on 07/20/17 Heme/onc consulted, Dr. Tran help appreciated stool occult blood negative Likely due from bone marrow suppression due to alcohol Tobacco use disorder Nicotine patch S/P Urinary Retention monitor urine output Elevated INR Vitamin K 5mg po daily for a total of 5 days (day 1 on 07/26, last dose to be given on 07/30) continue to monitor Prophylactic Measure/supportive care Pepcid 20mg po BID SCDs, Lovenox 40mg sc daily Simethicone 80mg po BID PT/OT Imodium prn Disposition: Patient with overall poor prognosis. Cirrhosis with ascites, severe pancreatic insufficiency. Patient now DNR/DNI after palliative care discussion. POLST form in the chart. We have moved to attempt to acquire a supply of pancreatic enzymes from [employer] program for the patient. One month supply of medications was secured for the patient (Creon pancreatic enzymes, cholestyramine, lactulose, and Rifaximin[though only 15 day supply was available from the pharmacy]). Patient remains an unsafe discharge as he does not have support. Case DW Dr. Cristina Beth PGY-1 <Js Evans H - Last Filed: 08/23/17 15:40> Objective - Vital Signs/Intake and Output Vital Signs (last 24 hours): Temp Pulse Resp BP Pulse Ox 98.4 F 86 20 108/72 100 08/23/17 07:45 08/23/17 14:20 08/23/17 07:45 08/23/17 07:45 08/23/17 07:45 - Medications Medications: Current Medications Albuterol/Ipratropium (Duoneb 3 Mg/0.5 Mg (3 Ml) Ud) 3 ml INH RBID [facility] Last Admin: 08/23/17 07:00 Dose: 3 ml Cholestyramine Resin (Questran) 4 gm PO TIDPC [facility] Last Admin: 08/23/17 13:51 Dose: 4 gm Folic Acid (Folic Acid) 1 mg PO DAILY [facility] Last Admin: 08/23/17 10:00 Dose: 1 mg Lactulose (Enulose) 10 gm PO BID [facility] Last Admin: 08/23/17 10:00 Dose: 10 gm Pantoprazole Sodium (Protonix Ec Tab) 40 mg PO DAILY [facility] Last Admin: 08/23/17 09:59 Dose: 40 mg Petrolatum (Desitin Original) 1 gm TOP TID [facility] Last Admin: 08/23/17 14:06 Dose: 1 applic Rifaximin (Xifaxan) 550 mg PO BID [facility] Last Admin: 08/23/17 09:59 Dose: 550 mg Sodium Bicarbonate (Sodium Bicarbonate Tab) 1,300 mg PO TID [facility] Last Admin: 08/23/17 13:51 Dose: 1,300 mg Sodium Chloride (Sodium Chloride Tab) 1 gm PO BID [facility] Last Admin: 08/23/17 10:00 Dose: 1 gm Spironolactone (Aldactone) 50 mg PO BID [facility] Last Admin: 08/23/17 10:00 Dose: 50 mg Thiamine HCl (Vitamin B1 Tab) 100 mg PO BID [facility] Last Admin: 08/23/17 10:00 Dose: 100 mg - Labs Labs: 08/22/17 11:37 08/22/17 11:37 PT 17.9 SECONDS (9.7-12.2) H 08/16/17 07:11 INR 1.6 08/16/17 07:11 APTT 34 SECONDS (21-34) 07/18/17 13:52 Attending/Attestation - Attestation I have personally seen and examined this patient.: Yes I have fully participated in the care of the patient.: Yes I have reviewed all pertinent clinical information, including history, physical exam and plan: Yes Notes (Text): 08/23/17 15:40 Medical attending: Patient was seen and examined by me as well, agrees the above note by the back office medical assistant. So today I was asked by hospital administration if the patient could potentially be discharged home was halfway. Unfortunately the patient is mostly bedbound. He is able to get up and sit on his bedside commode. He still reports loose watery stools. As mentioned previously he has a lot of pancreatic insufficiency this is despite taking the oral pancreatic supplements. Likely this is related to the patient being on large doses of lactulose as well as xifaxan as he very easily develops high ammonia levels and altered mental status from hepatic encephalopathy His appetite remains minimal. We were able to contact the patient's "friend" however this friend explained that he actually doesn't know the patient very well at all and that his only family members are not in this country He is DNR/DNI, unfortunately before slowly seeing his health declined despite what were doing Js Evans
[2017-08-23] MEDS: Albuterol-Ipratrop 3 mg / 0.5 (3 ml) UD INH SCH ×2 (07:00→20:50)
[2017-08-23] MEDS: Cholestyramine 4 gm/Pkt UD PO SCH ×3 (08:18→18:44)
[2017-08-23] MEDS: LIPASE/PROTEASE/AMYLASE 21,000 U ECC PO SCH ×3 (08:18→18:43)
[2017-08-23] MEDS: Pantoprazole 40 mg EC Tab PO SCH (09:59)
[2017-08-23] MEDS: Zinc Oxide Topical 30 gm Tube TOP SCH ×3 (10:01→21:20)
--- NOTE | 2017-08-23 10:27 | CP.PCM.PN ---
Subjective - Date & Time of Evaluation Date of Evaluation: 08/23/17 Time of Evaluation: 10:24 - Subjective Subjective: Patient in bed Chronically ill debilitated Serum sodium continued to be in the range 127-128 Objective - Vital Signs/Intake and Output Vital Signs (last 24 hours): Temp Pulse Resp BP Pulse Ox 98.4 F 96 H 20 108/72 100 08/23/17 07:45 08/23/17 08:00 08/23/17 07:45 08/23/17 07:45 08/23/17 07:45 - Medications Medications: Current Medications Albuterol/Ipratropium (Duoneb 3 Mg/0.5 Mg (3 Ml) Ud) 3 ml INH RBID [facility] Last Admin: 08/23/17 07:00 Dose: 3 ml Cholestyramine Resin (Questran) 4 gm PO TIDPC [facility] Last Admin: 08/23/17 08:18 Dose: 4 gm Folic Acid (Folic Acid) 1 mg PO DAILY [facility] Last Admin: 08/23/17 10:00 Dose: 1 mg Lactulose (Enulose) 10 gm PO BID [facility] Last Admin: 08/23/17 10:00 Dose: 10 gm Pantoprazole Sodium (Protonix Ec Tab) 40 mg PO DAILY [facility] Last Admin: 08/23/17 09:59 Dose: 40 mg Petrolatum (Desitin Original) 1 gm TOP TID [facility] Last Admin: 08/23/17 10:01 Dose: 1 applic Rifaximin (Xifaxan) 550 mg PO BID [facility] Last Admin: 08/23/17 09:59 Dose: 550 mg Sodium Bicarbonate (Sodium Bicarbonate Tab) 1,300 mg PO TID [facility] Last Admin: 08/23/17 10:00 Dose: 1,300 mg Sodium Chloride (Sodium Chloride Tab) 1 gm PO BID [facility] Last Admin: 08/23/17 10:00 Dose: 1 gm Spironolactone (Aldactone) 50 mg PO BID [facility] Last Admin: 08/23/17 10:00 Dose: 50 mg Thiamine HCl (Vitamin B1 Tab) 100 mg PO BID [facility] Last Admin: 08/23/17 10:00 Dose: 100 mg - Labs Labs: 08/22/17 11:37 08/22/17 11:37 PT 17.9 SECONDS (9.7-12.2) H 08/16/17 07:11 INR 1.6 08/16/17 07:11 APTT 34 SECONDS (21-34) 07/18/17 13:52 - Constitutional Appears: No Acute Distress, Cachectic - ENT Exam ENT Exam: Mucous Membranes Moist - Neck Exam Neck Exam: absent: Lymphadenopathy - Respiratory Exam Respiratory Exam: NORMAL BREATHING PATTERN. absent: Chest Wall Tenderness - Cardiovascular Exam Cardiovascular Exam: absent: Gallop, JVD, Rubs - GI/Abdominal Exam GI & Abdominal Exam: Soft, Normal Bowel Sounds. absent: Guarding - Extremities Exam Extremities Exam: absent: Calf Tenderness - Back Exam Back Exam: absent: CVA tenderness (L) - Neurological Exam Neurological Exam: Altered - Psychiatric Exam Psychiatric exam: Depressed - Skin Skin Exam: absent: Cyanosis Assessment and Plan (1) Hyponatremia Assessment & Plan: Hyponatremia multifactorial, due to diuretics and ongoing GI volume loss due to enterocolitis, ADH stimulation, chronic etoh Cirrhosis, smoker and Etoh abuse Hypomagnesemia We will give Samsca 15 mg. Status: Acute
[2017-08-23] MEDS ORDERED: Tolvaptan 15 MG TAB PO ONE (10:28)
--- NOTE | 2017-08-24 07:01 | CP.PCM.PN ---
<Tima Beth S - Last Filed: 08/24/17 13:00> Subjective - Date & Time of Evaluation Date of Evaluation: 08/24/17 Time of Evaluation: 07:10 - Subjective Subjective: Medicine progress note for Dr. Evans Patient seen and examined. No BM overnight, but patient reports diarrhea in the morning. Patient was seen in the presence of his friend Mazin Peng. The friend was updated on the situation and reports that he will work with the other friend Nolberto to try to expedite the process of acquiring a ticket to send the patient to [facility]. Objective - Vital Signs/Intake and Output Vital Signs (last 24 hours): Temp Pulse Resp BP Pulse Ox 98.2 F 97 H 20 103/71 98 08/23/17 23:50 08/24/17 00:00 08/23/17 23:50 08/23/17 23:50 08/23/17 23:50 Intake and Output: 08/24/17 08/24/17 06:59 18:59 Output Total 750 Balance -750 - Medications Medications: Current Medications Albuterol/Ipratropium (Duoneb 3 Mg/0.5 Mg (3 Ml) Ud) 3 ml INH RBID ON [facility] OF [facility] Last Admin: 08/23/17 20:50 Dose: 3 ml Cholestyramine Resin (Questran) 4 gm PO TIDPC ON [facility] OF [facility] Last Admin: 08/23/17 18:44 Dose: 4 gm Folic Acid (Folic Acid) 1 mg PO DAILY ON [facility] OF [facility] Last Admin: 08/23/17 10:00 Dose: 1 mg Lactulose (Enulose) 10 gm PO BID ON [facility] OF [facility] Last Admin: 08/23/17 18:43 Dose: Not Given Pantoprazole Sodium (Protonix Ec Tab) 40 mg PO DAILY ON [facility] OF [facility] Last Admin: 08/23/17 09:59 Dose: 40 mg Petrolatum (Desitin Original) 1 gm TOP TID ON [facility] OF [facility] Last Admin: 08/23/17 21:20 Dose: 1 applic Rifaximin (Xifaxan) 550 mg PO BID ON [facility] OF [facility] Last Admin: 08/23/17 18:44 Dose: 550 mg Sodium Bicarbonate (Sodium Bicarbonate Tab) 1,300 mg PO TID ON [facility] OF [facility] Last Admin: 08/23/17 18:44 Dose: 1,300 mg Sodium Chloride (Sodium Chloride Tab) 1 gm PO BID ON [facility] OF [facility] Last Admin: 08/23/17 18:44 Dose: 1 gm Spironolactone (Aldactone) 50 mg PO BID ON [facility] OF [facility] Last Admin: 08/23/17 18:42 Dose: 50 mg Thiamine HCl (Vitamin B1 Tab) 100 mg PO BID ON [facility] OF [facility] Last Admin: 08/23/17 18:44 Dose: 100 mg - Labs Labs: 08/22/17 11:37 08/22/17 11:37 PT 17.9 SECONDS (9.7-12.2) H 08/16/17 07:11 INR 1.6 08/16/17 07:11 APTT 34 SECONDS (21-34) 07/18/17 13:52 - Additional Findings Additional findings: - Constitutional Appears: No Acute Distress, Chronically Ill - Head Exam Head Exam: ATRAUMATIC, NORMAL INSPECTION - Eye Exam Eye Exam: EOMI, Normal appearance - ENT Exam ENT Exam: Mucous Membranes Moist - Respiratory Exam Respiratory Exam: Clear to Auscultation Bilateral, NORMAL BREATHING PATTERN, Wheezing - Cardiovascular Exam Cardiovascular Exam: REGULAR RHYTHM, +S1, +S2 - GI/Abdominal Exam GI & Abdominal Exam: Soft, Tenderness (diffuse), Normal Bowel Sounds, Non- distended - Neurological Exam Neurological Exam: Alert, Awake, Oriented x3 - Psychiatric Exam Psychiatric exam: Normal Affect, Normal Mood - Skin Skin Exam: Dry, Warm Assessment and Plan - Assessment and Plan (Free Text) Plan: Ascites and hepatic encephalopathy Consult GI, Dr South, help appreciated CT abd/pelvis shows small to moderate ascites Paracentesis done 07/19/17 with 2.1 L straw colored fluid removed. * peritoneal fluid no growth * Fluid WBC: 147, RBC: 216, neut: 41, lymph: 43, monocyte/macrophage: 15 Repeat paracentesis 08/04/17--4 Liters removed. Replenished with albumin 12.5 gm x2 doses Ammonia level on 08/09: 57--Xifaximin 550 mg PO BID restarted Lactulose 10 mg PO BID with holding parameters in nursing communication to hold if more than 2 consecutive loose stool episodes. Fever, working diagnosis SBP though unlikely due to fluid WBCs Rocephin 1 gm daily empirically started on 08/15/17. Likely not SBP but will treat for total of 3 days Paracentesis 08/16/17--2.5 liters of straw colored fluid f/u fluid studies Colitis and Diarrhea No leukocytosis, afebrile giardia negative, stool ova and parasite negative, stool culture negative blood culture negative negative HIV and hep panel fecal fat study: normal c dif neg x 3 Desitin cream ordered for gluteal and sacral excoriations due to the uncontrolled loose stools. Excoriations improved. Imaging: CT abd/pelvis with IV contrast 07/17: Significant bowel wall thickening involving the colon, appearance most consistent with acute colitis, cannot exclude underlying neoplasm. Small to moderate ascites. Fatty infiltration of the liver. Heterogeneous appearance to hepatic parenchyma. Some of appearance may be due to transient hepatic attenuation differences, concern for underlying lesion. Meds: Cipro 400 IV daily--discontinued Flagyl 500 IV Q8--discontinued Endoscopy (07/28): small hiatal hernia, patchy mild inflammation in gastric antrum biopsies, scalloped mucosa found in duodenum, suspicious for celiac disease- biopsied Colonoscopy (07/28): internal hemorrhoids, mucosal nodule in the sigmoid colon, in transverse colon and in the ascending colon- biopsied Per Dr. South, he suspects pancreatic insufficiency as possible cause due to low stool pancreatic elastase and ordered an MRCP MRCP unable to be obtained due to patient restlessness Dr. South consulted Dr. Guerrero (help appreciated) for evaluation of possible chronic pancreatitis and possible EUS work up * Per Dr. Guerrero, pursue EUS as an outpatient for definitive diagnosis of chronic pancreatitis * Pancreatic enzymes were started with meals and Aldactone increased to 50 mg PO BID by GI team [place] [address] units TID with meals Alcohol abuse/alcohol intoxication/alcohol withdrawal Elevated serum alcohol on admission 292 Seizure and aspiration precautions Ativan 1mg q4h prn for agitation Thiamine 100 mg daily Folic acid 1 mg daily Psych consult, Dr. Man, help appreciated. Detox completed. Hyponatremia Nephrology consult Dr. Middleton, help appreciated Unclear if hyponatremia is due to cirrhosis or hypovolemia from diuretics. Patient previously on trial of NS 100 cc/hr without improvement Hypertonic saline solution on 08/09/17--corrected sodium to 130 Per nephrology to hold diuretics, continue aldactone as allowed by BP Per nephro, NaCL tab 1 gm BID and sodium bicarb supplement 1300 mg PO BID started on 08/15/17 One dose of Tolvaptan given on 08/23/17 by nephro with f/u BMP in the evening, although note that patient has refused lab work this morning. Hypokalemia and Hypomagnesemia Monitor and replete, though patient will intermittently refuse labs Anemia Stable patient transfused 1 u PRBC on 07/20/17 Heme/onc consulted, Dr. Tran help appreciated stool occult blood negative Likely due from bone marrow suppression due to alcohol Tobacco use disorder Nicotine patch S/P Urinary Retention monitor urine output Elevated INR Vitamin K 5mg po daily for a total of 5 days (day 1 on 07/26, last dose to be given on 07/30) continue to monitor Prophylactic Measure/supportive care Pepcid 20mg po BID SCDs, Lovenox 40mg sc daily Simethicone 80mg po BID PT/OT Imodium prn Disposition: Patient with overall poor prognosis. Cirrhosis with ascites, severe pancreatic insufficiency. Patient now DNR/DNI after palliative care discussion. POLST form in the chart. We have moved to attempt to acquire a supply of pancreatic enzymes from [employer] program for the patient. One month supply of medications was secured for the patient (Creon pancreatic enzymes, cholestyramine, lactulose, and Rifaximin[though only 15 day supply was available from the pharmacy]). Patient's friend Mazin Peng [phone] was at bedside on 08/24/17. The friend was updated on the situation, and he will work with the other friend Luis to secure a ticket to [facility] for the patient. Case DW Dr. Cristina Beth PGY-1 <Js Evans - Last Filed: 08/24/17 14:28> Objective - Vital Signs/Intake and Output Vital Signs (last 24 hours): Temp Pulse Resp BP Pulse Ox 98.3 F 87 20 100/66 100 08/24/17 08:40 08/24/17 08:40 08/24/17 08:40 08/24/17 08:40 08/24/17 08:40 Intake and Output: 08/24/17 08/24/17 06:59 18:59 Output Total 750 Balance -750 - Medications Medications: Current Medications Albuterol/Ipratropium (Duoneb 3 Mg/0.5 Mg (3 Ml) Ud) 3 ml INH RBID ON [facility] Last Admin: 08/24/17 07:14 Dose: 3 ml Cholestyramine Resin (Questran) 4 gm PO TIDPC ON [facility] Last Admin: 08/24/17 13:43 Dose: 4 gm Folic Acid (Folic Acid) 1 mg PO DAILY ON [facility] Last Admin: 08/24/17 09:27 Dose: 1 mg Lactulose (Enulose) 10 gm PO BID ON [facility] Last Admin: 08/24/17 09:26 Dose: 10 gm Pantoprazole Sodium (Protonix Ec Tab) 40 mg PO DAILY ON [facility] Last Admin: 08/24/17 09:26 Dose: 40 mg Petrolatum (Desitin Original) 1 gm TOP TID ON [facility] Last Admin: 08/24/17 09:27 Dose: 1 applic Rifaximin (Xifaxan) 550 mg PO BID ON [facility] Last Admin: 08/24/17 09:26 Dose: 550 mg Sodium Bicarbonate (Sodium Bicarbonate Tab) 1,300 mg PO TID ON [facility] Last Admin: 08/24/17 13:43 Dose: 1,300 mg Sodium Chloride (Sodium Chloride Tab) 1 gm PO BID ON [facility] Last Admin: 08/24/17 09:26 Dose: 1 gm Spironolactone (Aldactone) 50 mg PO BID ON [facility] Last Admin: 08/24/17 09:27 Dose: 50 mg Thiamine HCl (Vitamin B1 Tab) 100 mg PO BID ON [facility] Last Admin: 08/24/17 09:27 Dose: 100 mg - Labs Labs: 08/22/17 11:37 08/22/17 11:37 PT 17.9 SECONDS (9.7-12.2) H 08/16/17 07:11 INR 1.6 08/16/17 07:11 APTT 34 SECONDS (21-34) 07/18/17 13:52 Attending/Attestation - Attestation I have personally seen and examined this patient.: Yes I have fully participated in the care of the patient.: Yes I have reviewed all pertinent clinical information, including history, physical exam and plan: Yes Notes (Text): 08/24/17 14:28 Medical attending: Patient was seen and examined by me, agree with the above note by medical transcription supervisor. Today there was a different friend came to the room. He introduced himself us that Mr. Mazin Peng. His contact number was [phone]. Both this man and the patient were talking to each other. He explained that he's known the patient for quite some time now. He again also confirmed that the patient does not have family members in this country. He also understands that the patient wants to go back home to [place]. I explained to Mr.Anil Peng that the overall prognosis was poor. Mr Mazin Peng is aware of the other friend who sees the patient - he is trying to raise money to buy a plane ticket back to [place]. I asked Mr Mazin Peng to give us a call when they are able to aquire a ticket. The patient has a valid passport. Js Evans
[2017-08-24] MEDS: Albuterol-Ipratrop 3 mg / 0.5 (3 ml) UD INH SCH ×2 (07:14→19:06)
[2017-08-24] MEDS: LIPASE/PROTEASE/AMYLASE 21,000 U ECC PO SCH ×3 (08:45→18:35)
[2017-08-24] MEDS: Cholestyramine 4 gm/Pkt UD PO SCH ×3 (08:45→18:35)
[2017-08-24] MEDS: Pantoprazole 40 mg EC Tab PO SCH (09:26)
[2017-08-24] MEDS: Zinc Oxide Topical 30 gm Tube TOP SCH ×2 (09:27→18:36)
--- NOTE | 2017-08-24 14:32 | CP.PCM.PN ---
Subjective - Date & Time of Evaluation Date of Evaluation: 08/24/17 Time of Evaluation: 14:29 - Subjective Subjective: No significant changes noted Patient is chronically ill and debilitated He refused absolutely positively blood test to repeat serum sodium therefore I do not know the effect of Samsca was given yesterday Keep talking to the patient to accept a repeat the blood test hopefully by tomorrow Physical exam Chronically debilitated Chest no wheezing Heart no rubs Abdomen soft then patient and plan As we mentioned above hyponatremia and needs monitoring the rest of the medical problem as noted on previous note Objective - Vital Signs/Intake and Output Vital Signs (last 24 hours): Temp Pulse Resp BP Pulse Ox 98.3 F 87 20 100/66 100 08/24/17 08:40 08/24/17 08:40 08/24/17 08:40 08/24/17 08:40 08/24/17 08:40 Intake and Output: 08/24/17 08/24/17 06:59 18:59 Output Total 750 Balance -750 - Medications Medications: Current Medications Albuterol/Ipratropium (Duoneb 3 Mg/0.5 Mg (3 Ml) Ud) 3 ml [facility]H [facility]ID [facility] Last Admin: 08/24/17 07:14 Dose: 3 ml Cholestyramine Resin (Questran) 4 gm PO TIDPC [facility] Last Admin: 08/24/17 13:43 Dose: 4 gm Folic Acid (Folic Acid) 1 mg PO DAILY [facility] Last Admin: 08/24/17 09:27 Dose: 1 mg Lactulose (Enulose) 10 gm PO BID [facility] Last Admin: 08/24/17 09:26 Dose: 10 gm Pantoprazole Sodium (Protonix Ec Tab) 40 mg PO DAILY [facility] Last Admin: 08/24/17 09:26 Dose: 40 mg Petrolatum (Desitin Original) 1 gm TOP TID [facility] Last Admin: 08/24/17 09:27 Dose: 1 applic Rifaximin (Xifaxan) 550 mg PO BID [facility] Last Admin: 08/24/17 09:26 Dose: 550 mg Sodium Bicarbonate (Sodium Bicarbonate Tab) 1,300 mg PO TID [facility] Last Admin: 08/24/17 13:43 Dose: 1,300 mg Sodium Chloride (Sodium Chloride Tab) 1 gm PO BID [facility] Last Admin: 08/24/17 09:26 Dose: 1 gm Spironolactone (Aldactone) 50 mg PO BID [facility] Last Admin: 08/24/17 09:27 Dose: 50 mg Thiamine HCl (Vitamin B1 Tab) 100 mg PO BID [facility] Last Admin: 08/24/17 09:27 Dose: 100 mg - Labs Labs: 08/22/17 11:37 08/22/17 11:37 PT 17.9 SECONDS (9.7-12.2) H 08/16/17 07:11 INR 1.6 08/16/17 07:11 APTT 34 SECONDS (21-34) 07/18/17 13:52 Assessment and Plan (1) Hyponatremia Status: Acute
--- NOTE | 2017-08-25 07:14 | CP.PCM.PN ---
<Tima Beth S - Last Filed: 08/25/17 14:09> Subjective - Date & Time of Evaluation Date of Evaluation: 08/25/17 Time of Evaluation: 07:10 - Subjective Subjective: Medicine progress note for Dr. Evans Patient seen and examined. Patient reports continued loose stools. No acute events overnight. Objective - Vital Signs/Intake and Output Vital Signs (last 24 hours): Temp Pulse Resp BP Pulse Ox 98.2 F 79 20 92/59 L 98 08/24/17 23:50 08/25/17 04:00 08/24/17 23:50 08/24/17 23:50 08/24/17 23:50 - Medications Medications: Current Medications Albuterol/Ipratropium (Duoneb 3 Mg/0.5 Mg (3 Ml) Ud) 3 ml INH RBID [facility] Last Admin: 08/24/17 19:06 Dose: Not Given Cholestyramine Resin (Questran) 4 gm PO TIDPC [facility] Last Admin: 08/24/17 18:35 Dose: 4 gm Folic Acid (Folic Acid) 1 mg PO DAILY [facility] Last Admin: 08/24/17 09:27 Dose: 1 mg Lactulose (Enulose) 10 gm PO BID [facility] Last Admin: 08/24/17 18:34 Dose: Not Given Pantoprazole Sodium (Protonix Ec Tab) 40 mg PO DAILY [facility] Last Admin: 08/24/17 09:26 Dose: 40 mg Petrolatum (Desitin Original) 1 gm TOP TID [facility] Last Admin: 08/24/17 18:36 Dose: 1 applic Rifaximin (Xifaxan) 550 mg PO BID [facility] Last Admin: 08/24/17 18:35 Dose: 550 mg Sodium Bicarbonate (Sodium Bicarbonate Tab) 1,300 mg PO TID [facility] Last Admin: 08/24/17 18:35 Dose: 1,300 mg Sodium Chloride (Sodium Chloride Tab) 1 gm PO BID [facility] Last Admin: 08/24/17 18:35 Dose: 1 gm Spironolactone (Aldactone) 50 mg PO BID [facility] Last Admin: 08/24/17 18:33 Dose: 50 mg Thiamine HCl (Vitamin B1 Tab) 100 mg PO BID [facility] Last Admin: 08/24/17 18:35 Dose: 100 mg - Labs Labs: 08/22/17 11:37 08/22/17 11:37 PT 17.9 SECONDS (9.7-12.2) H 08/16/17 07:11 INR 1.6 08/16/17 07:11 APTT 34 SECONDS (21-34) 07/18/17 13:52 - Additional Findings Additional findings: - Constitutional Appears: No Acute Distress, Chronically Ill - Head Exam Head Exam: ATRAUMATIC, NORMAL INSPECTION - Eye Exam Eye Exam: EOMI, Normal appearance - ENT Exam ENT Exam: Mucous Membranes Moist - Respiratory Exam Respiratory Exam: Clear to Auscultation Bilateral, NORMAL BREATHING PATTERN, Wheezing - Cardiovascular Exam Cardiovascular Exam: REGULAR RHYTHM, +S1, +S2 - GI/Abdominal Exam GI & Abdominal Exam: Soft, Tenderness (diffuse), Normal Bowel Sounds, Non- distended - Neurological Exam Neurological Exam: Alert, Awake, Oriented x3 - Psychiatric Exam Psychiatric exam: Normal Affect, Normal Mood - Skin Skin Exam: Dry, Warm Assessment and Plan - Assessment and Plan (Free Text) Plan: Ascites and hepatic encephalopathy Consult GI, Dr South, help appreciated CT abd/pelvis shows small to moderate ascites Paracentesis done 07/19/17 with 2.1 L straw colored fluid removed. * peritoneal fluid no growth * Fluid WBC: 147, RBC: 216, neut: 41, lymph: 43, monocyte/macrophage: 15 Repeat paracentesis 08/04/17--4 Liters removed. Replenished with albumin 12.5 gm x2 doses Ammonia level on 08/09: 57--Xifaximin 550 mg PO BID restarted Lactulose 10 mg PO BID with holding parameters in nursing communication to hold if more than 2 consecutive loose stool episodes. Fever, working diagnosis SBP though unlikely due to fluid WBCs Rocephin 1 gm daily empirically started on 08/15/17. Likely not SBP but will treat for total of 3 days Paracentesis 08/16/17--2.5 liters of straw colored fluid f/u fluid studies Colitis and Diarrhea No leukocytosis, afebrile giardia negative, stool ova and parasite negative, stool culture negative blood culture negative negative HIV and hep panel fecal fat study: normal c dif neg x 3 Desitin cream ordered for gluteal and sacral excoriations due to the uncontrolled loose stools. Excoriations improved. Imaging: CT abd/pelvis with IV contrast 07/17: Significant bowel wall thickening involving the colon, appearance most consistent with acute colitis, cannot exclude underlying neoplasm. Small to moderate ascites. Fatty infiltration of the liver. Heterogeneous appearance to hepatic parenchyma. Some of appearance may be due to transient hepatic attenuation differences, concern for underlying lesion. Meds: Cipro 400 IV daily--discontinued Flagyl 500 IV Q8--discontinued Endoscopy (07/28): small hiatal hernia, patchy mild inflammation in gastric antrum biopsies, scalloped mucosa found in duodenum, suspicious for celiac disease- biopsied Colonoscopy (07/28): internal hemorrhoids, mucosal nodule in the sigmoid colon, in transverse colon and in the ascending colon- biopsied Per Dr. South, he suspects pancreatic insufficiency as possible cause due to low stool pancreatic elastase and ordered an MRCP MRCP unable to be obtained due to patient restlessness Dr. South consulted Dr. Guerrero (help appreciated) for evaluation of possible chronic pancreatitis and possible EUS work up * Per Dr. Guerrero, pursue EUS as an outpatient for definitive diagnosis of chronic pancreatitis * Pancreatic enzymes were started with meals and Aldactone increased to 50 mg PO BID by GI team [place] [address] units TID with meals Alcohol abuse/alcohol intoxication/alcohol withdrawal Elevated serum alcohol on admission 292 Seizure and aspiration precautions Ativan 1mg q4h prn for agitation Thiamine 100 mg daily Folic acid 1 mg daily Psych consult, Dr. Man, help appreciated. Detox completed. Hyponatremia Nephrology consult Dr. Middleton, help appreciated Unclear if hyponatremia is due to cirrhosis or hypovolemia from diuretics. Patient previously on trial of NS 100 cc/hr without improvement Hypertonic saline solution on 08/09/17--corrected sodium to 130 Per nephrology to hold diuretics, continue aldactone as allowed by BP Per nephro, NaCL tab 1 gm BID and sodium bicarb supplement 1300 mg PO BID started on 08/15/17 One dose of Tolvaptan given on 08/23/17 by nephro. Patient refused lab work up until 08/25/17 where his sodium was found to be 132. Hypokalemia and Hypomagnesemia Monitor and replete, though patient will intermittently refuse labs Anemia Stable patient transfused 1 u PRBC on 07/20/17 Heme/onc consulted, Dr. Tran help appreciated stool occult blood negative Likely due from bone marrow suppression due to alcohol Tobacco use disorder Nicotine patch S/P Urinary Retention monitor urine output Elevated INR Vitamin K 5mg po daily for a total of 5 days (day 1 on 07/26, last dose to be given on 07/30) continue to monitor Prophylactic Measure/supportive care Pepcid 20mg po BID SCDs, Lovenox 40mg sc daily Simethicone 80mg po BID PT/OT Imodium prn Disposition: Patient with overall poor prognosis. Cirrhosis with ascites, severe pancreatic insufficiency. Patient now DNR/DNI after palliative care discussion. POLST form in the chart. We have moved to attempt to acquire a supply of pancreatic enzymes from [employer] program for the patient. One month supply of medications was secured for the patient (Creon pancreatic enzymes, cholestyramine, lactulose, and Rifaximin[though only 15 day supply was available from the pharmacy]). Patient's friend Mazin Peng [phone] was at bedside on 08/24/17. The friend was updated on the situation, and he will work with the other friend Luis to secure a ticket to [facility] for the patient. We have re-consulted palliative care for hospice discussion. Case DW Dr. Cristina Beth PGY-1 <Js Evans H - Last Filed: 08/25/17 14:26> Objective - Vital Signs/Intake and Output Vital Signs (last 24 hours): Temp Pulse Resp BP Pulse Ox 98.5 F 92 H 20 102/66 100 08/25/17 08:29 08/25/17 08:29 08/25/17 08:29 08/25/17 08:29 08/25/17 08:29 - Medications Medications: Current Medications Albuterol/Ipratropium (Duoneb 3 Mg/0.5 Mg (3 Ml) Ud) 3 ml INH RBID [facility] Last Admin: 08/25/17 07:40 Dose: 3 ml Cholestyramine Resin (Questran) 4 gm PO TIDPC [facility] Last Admin: 08/25/17 13:16 Dose: 4 gm Folic Acid (Folic Acid) 1 mg PO DAILY [facility] Last Admin: 08/25/17 09:03 Dose: 1 mg Lactulose (Enulose) 10 gm PO BID [facility] Last Admin: 08/25/17 09:02 Dose: 10 gm Pantoprazole Sodium (Protonix Ec Tab) 40 mg PO DAILY [facility] Last Admin: 08/25/17 09:03 Dose: 40 mg Petrolatum (Desitin Original) 1 gm TOP TID [facility] Last Admin: 08/25/17 13:16 Dose: 1 applic Rifaximin (Xifaxan) 550 mg PO BID [facility] Last Admin: 08/25/17 09:03 Dose: 550 mg Sodium Bicarbonate (Sodium Bicarbonate Tab) 1,300 mg PO TID [facility] Last Admin: 08/25/17 13:16 Dose: 1,300 mg Sodium Chloride (Sodium Chloride Tab) 1 gm PO BID [facility] Last Admin: 08/25/17 09:03 Dose: 1 gm Spironolactone (Aldactone) 50 mg PO BID [facility] Last Admin: 08/25/17 09:03 Dose: 50 mg Thiamine HCl (Vitamin B1 Tab) 100 mg PO BID [facility] Last Admin: 08/25/17 09:03 Dose: 100 mg - Labs Labs: 08/25/17 07:03 08/25/17 07:03 PT 17.9 SECONDS (9.7-12.2) H 08/16/17 07:11 INR 1.6 08/16/17 07:11 APTT 34 SECONDS (21-34) 07/18/17 13:52 Attending/Attestation - Attestation I have personally seen and examined this patient.: Yes I have fully participated in the care of the patient.: Yes I have reviewed all pertinent clinical information, including history, physical exam and plan: Yes Notes (Text): Medical attending: Patient was seen and examined by me, we saw together the patient with the medical i d sales. I reviewed the above note by medical i d sales and agree. There've been no acute changes since yesterday. As mentioned previously the overall prognosis is very poor. His appetite is very minimal at this time will try to see if we get a hospice discussion with patient. We will ask the palliative care and discuss again with him hospice care Thank you Js Evans
[2017-08-25] MEDS: Albuterol-Ipratrop 3 mg / 0.5 (3 ml) UD INH SCH ×2 (07:40→20:15)
[2017-08-25 07:47] LABS: BASO # 0.1 K/uL (0.0-0.2); BASO % 1.3 % (0.0-2.0); EOS # 0.1 K/uL (0.0-0.7); EOS % 1.3 % (0.0-4.0); HEMOGLOBIN 7.5 g/dL (12.0-18.0); LYMPH # 1.8 K/uL (1.0-4.3); LYMPH % 24.1 % (20.0-40.0); MEAN CELL VOLUME 87.3 fL (80.0-94.0); MEAN CORPUSCULAR HEMOGLOBIN 29.8 pg (27.0-31.0); MEAN CORPUSCULAR HGB CONC 34.2 g/dL (33.0-37.0); MEAN PLATELET VOLUME 9.1 fL (7.2-11.7); MONO # 0.7 K/uL (0.0-0.8); MONO % 9.6 % (0.0-10.0); NEUT # 4.7 K/uL (1.8-7.0); NEUT % 63.7 % (50.0-75.0); NRBC % 0.1 % (0.0-2.0); RBC 2.51 Mil/uL (4.40-5.90); RED CELL DISTRIBUTION WIDTH 16.9 % (11.5-14.5); WHITE BLOOD COUNT 7.3 K/uL (4.8-10.8)
[2017-08-25 08:06] LABS: ALB/GLOB RATIO 0.6 (1.0-2.1); ALT/SGPT 27 U/L (21-72); AST/SGOT 66 U/L (17-59); BLOOD UREA NITROGEN 9 mg/dL (9-20); CALCIUM 7.8 mg/dl (8.6-10.4); GFR AFRICAN-AMERICAN > 60; GFR NON-AFRICAN AMERICAN > 60; MAGNESIUM 1.4 mg/dL (1.6-2.3)
[2017-08-25] MEDS: LIPASE/PROTEASE/AMYLASE 4,200 U ECC PO SCH ×3 (08:46→17:52)
[2017-08-25] MEDS: Pantoprazole 40 mg EC Tab PO SCH (09:03)
[2017-08-25] MEDS: Zinc Oxide Topical 30 gm Tube TOP SCH ×3 (09:03→17:52)
[2017-08-25] MEDS: Cholestyramine 4 gm/Pkt UD PO SCH ×3 (09:03→17:52)
[2017-08-25] MEDS: Magnesium Sulfate 1 gm in D5W 1 GM/100 ML BAG IVPB SCH ×3 (10:44→12:44)
--- NOTE | 2017-08-25 15:02 | CP.PCM.PN ---
Subjective - Date & Time of Evaluation Date of Evaluation: 08/25/17 Time of Evaluation: 15:01 - Subjective Subjective: RENAL FOLLOW UP Hyponatremia multifactorial, due to diuretics, cirrhosis, persistent adh stimulation Cirrhosis, smoker and Etoh abuse Hypomagnesemia Plan NA 132 today continu efree water restriction and salt tabs on bicarb supplement S: seen and examined has no complaints Physical Examination: General Appearance: Comfortable, in no acute respiratory distress, co-operative . ill appearing Head; Atraumatic, normocephalic ENT: no ulcers EYES: Sclera is anicteric. Neck; supple Lungs: Normal respiratory rate/effort. Breath sounds bilateral equal and clear Heart: normal rate. s1s2 normal. No rub or gallop. Extremities: no edema. No varicose veins Neurological: Patient is awake alert Skin: Warm and dry. Abdomen: Abdomen is soft. Bowel sounds +. + fluid wave Psych: limited insight Objective - Vital Signs/Intake and Output Vital Signs (last 24 hours): Temp Pulse Resp BP Pulse Ox 98.5 F 92 H 20 102/66 100 08/25/17 08:29 08/25/17 08:29 08/25/17 08:29 08/25/17 08:29 08/25/17 08:29 - Medications Medications: Current Medications Albuterol/Ipratropium (Duoneb 3 Mg/0.5 Mg (3 Ml) Ud) 3 ml INH RBID [facility] Last Admin: 08/25/17 07:40 Dose: 3 ml Cholestyramine Resin (Questran) 4 gm PO TIDPC [facility] Last Admin: 08/25/17 13:16 Dose: 4 gm Folic Acid (Folic Acid) 1 mg PO DAILY [facility] Last Admin: 08/25/17 09:03 Dose: 1 mg Pantoprazole Sodium (Protonix Ec Tab) 40 mg PO DAILY [facility] Last Admin: 08/25/17 09:03 Dose: 40 mg Petrolatum (Desitin Original) 1 gm TOP TID [facility] Last Admin: 08/25/17 13:16 Dose: 1 applic Rifaximin (Xifaxan) 550 mg PO BID [facility] Last Admin: 08/25/17 09:03 Dose: 550 mg Sodium Bicarbonate (Sodium Bicarbonate Tab) 1,300 mg PO TID [facility] Last Admin: 08/25/17 13:16 Dose: 1,300 mg Sodium Chloride (Sodium Chloride Tab) 1 gm PO BID [facility] Last Admin: 08/25/17 09:03 Dose: 1 gm Spironolactone (Aldactone) 50 mg PO BID [facility] Last Admin: 08/25/17 09:03 Dose: 50 mg Thiamine HCl (Vitamin B1 Tab) 100 mg PO BID [facility] Last Admin: 08/25/17 09:03 Dose: 100 mg - Labs Labs: 08/25/17 07:03 08/25/17 07:03 PT 17.9 SECONDS (9.7-12.2) H 08/16/17 07:11 INR 1.6 08/16/17 07:11 APTT 34 SECONDS (21-34) 07/18/17 13:52
--- NOTE | 2017-08-25 15:54 | CP.PCM.PN ---
Subjective - Date & Time of Evaluation Date of Evaluation: 08/25/17 Time of Evaluation: 15:28 - Subjective Subjective: Complaints of diarrhea Objective - Vital Signs/Intake and Output Vital Signs (last 24 hours): Temp Pulse Resp BP Pulse Ox 98.5 F 92 H 20 102/66 100 08/25/17 08:29 08/25/17 08:29 08/25/17 08:29 08/25/17 08:29 08/25/17 08:29 - Medications Medications: Current Medications Albuterol/Ipratropium (Duoneb 3 Mg/0.5 Mg (3 Ml) Ud) 3 ml INH RBID [facility] Last Admin: 08/25/17 07:40 Dose: 3 ml Cholestyramine Resin (Questran) 4 gm PO TIDPC [facility] Last Admin: 08/25/17 13:16 Dose: 4 gm Folic Acid (Folic Acid) 1 mg PO DAILY [facility] Last Admin: 08/25/17 09:03 Dose: 1 mg Pantoprazole Sodium (Protonix Ec Tab) 40 mg PO DAILY [facility] Last Admin: 08/25/17 09:03 Dose: 40 mg Petrolatum (Desitin Original) 1 gm TOP TID [facility] Last Admin: 08/25/17 13:16 Dose: 1 applic Rifaximin (Xifaxan) 550 mg PO BID [facility] Last Admin: 08/25/17 09:03 Dose: 550 mg Sodium Bicarbonate (Sodium Bicarbonate Tab) 1,300 mg PO TID [facility] Last Admin: 08/25/17 13:16 Dose: 1,300 mg Sodium Chloride (Sodium Chloride Tab) 1 gm PO BID [facility] Last Admin: 08/25/17 09:03 Dose: 1 gm Spironolactone (Aldactone) 50 mg PO BID [facility] Last Admin: 08/25/17 09:03 Dose: 50 mg Thiamine HCl (Vitamin B1 Tab) 100 mg PO BID [facility] Last Admin: 08/25/17 09:03 Dose: 100 mg - Labs Labs: 08/25/17 07:03 08/25/17 07:03 PT 17.9 SECONDS (9.7-12.2) H 08/16/17 07:11 INR 1.6 08/16/17 07:11 APTT 34 SECONDS (21-34) 07/18/17 13:52 - Constitutional Appears: No Acute Distress, Chronically Ill - Head Exam Head Exam: ATRAUMATIC, NORMAL INSPECTION, NORMOCEPHALIC - Eye Exam Eye Exam: EOMI, Normal appearance, PERRL Pupil Exam: NORMAL ACCOMODATION, PERRL - ENT Exam ENT Exam: Mucous Membranes Moist, Normal Exam - Neck Exam Neck Exam: Normal Inspection - Respiratory Exam Respiratory Exam: Decreased Breath Sounds, NORMAL BREATHING PATTERN - Cardiovascular Exam Cardiovascular Exam: REGULAR RHYTHM - GI/Abdominal Exam GI & Abdominal Exam: Distended, Firm, Guarding, Rigid, Diminished Bowel Sounds - Rectal Exam Rectal Exam: Deferred - Exam Exam: NORMAL INSPECTION - Extremities Exam Extremities Exam: Normal Inspection Additional comments: Complaints of pain to left fourth toes. Toes mobile warm to touch with equal sensation. - Neurological Exam Neurological Exam: Alert, Oriented x3 Neuro motor strength exam: Left Upper Extremity: 2/, Right Upper Extremity: 2/ , Left Lower Extremity: 2, Right Lower Extremity: 2 - Psychiatric Exam Psychiatric exam: Anxious, Depressed, Flat Affect - Skin Skin Exam: Pallor Assessment and Plan - Assessment and Plan (Free Text) Assessment: Palliative progress note Patient seen and examined in bed, alert orientated 3, Adventist and Czech speaking. Skin pale-appearing, hemoglobin 7.5, down from 9.6. Breath sounds diminished, denies cough, denies shortness of breath. Abdomen firm, distended, guarded. Patient reports having diarrhea. Lactulose onboard. Patient explained the purpose of being given lactulose. There is no pedal edema. Complaints of pain to left fourth toes. Pain is described as numbness. Able to ambulate to the bathroom. He was just called at the bedside. Reports staying on the bed for most of the time. Blood pressure 102/66. Temperature 98.7. Direct bilirubin 1.4. BUN 9.0. INR 1.6. MELD score 15, equal to 6%'s mortality rate. Goals of care discussed with the patient. Dr. Morales elizondo. The translation provided date by ABEL Peng. I first elicited patient's knowledge about his condition. Patient reported he was having diarrhea and asked be helped with. The rationale of leaving lactulose and diarrhea as a result of feet explained to the patient. Patient given detailed explanation about his condition, the liver cirrhosis and prognosis. Patient was informed that leave us urinalysis can be a deadly disease and management of the symptoms is the priority at this time. Patient listened and stated acknowledgment. I explained to the patient that the purpose of these meeting was to discuss the end of life care. I angie concerns regarding patient's lack of housing, and lack of income, as well as family support. In the previous meeting weeks patient's friend Mr. Peng, I learned that he was not able offer patient any further help. Friend who didn't get in touch with patient's family in [place]. I suggested that if these stage of his life the best "care would be a comfort care. In the light of lack of health insurance, I suggested that the [facility] hospice care was the best possible option for him at this time. Patient verbalized we wished o return to his friend's house where he thought he could stay . I question the patient if he understood the meaning of hospice and he said yes. Patient further elaborated on possibility of him going back to [place]. Dr. Nielsen and I were not sure if the patient would be able to fly for 24 hours. We agreed to talk to health social work professor and case management regarding placement at the [facility] hospice [place]. Patient agreed. We further discussed the need of repeated paracenteses to evacuate ascites. I discussed the possibility of surgically inserted Pleur -X and its purposes. Patient acknowledged 8 Impression -This is a chronically ill man approaching the end of his life -Denies lack of family and financial support, and housing -Patient is aware of his terminal diagnosis and is negotiating to prolong his hospital stay -I am not sure the patient will get any support from his friends once he leaves the hospital, therefore his best bet would be [facility] hospice [place] if the bed available Suggestions -Continue symptoms controlled -Discharge planning with possibility of hospice placement
--- NOTE | 2017-08-26 07:47 | CP.PCM.PN ---
<Tima Beth - Last Filed: 08/26/17 13:55> Subjective - Date & Time of Evaluation Date of Evaluation: 08/26/17 Time of Evaluation: 07:50 - Subjective Subjective: Medicine progress note for Dr. Evans Patient seen and examined. Patient reports no BM overnight. Per nursing staff, he had a soft BM later in the morning. Objective - Vital Signs/Intake and Output Vital Signs (last 24 hours): Temp Pulse Resp BP Pulse Ox 98.5 F 87 20 103/70 97 08/25/17 23:38 08/25/17 23:38 08/25/17 23:38 08/25/17 23:38 08/25/17 23:38 - Medications Medications: Current Medications Albuterol/Ipratropium (Duoneb 3 Mg/0.5 Mg (3 Ml) Ud) 3 ml INH RBID [facility] Last Admin: 08/25/17 20:15 Dose: Not Given Cholestyramine Resin (Questran) 4 gm PO TIDPC [facility] Last Admin: 08/25/17 17:52 Dose: 4 gm Folic Acid (Folic Acid) 1 mg PO DAILY [facility] Last Admin: 08/25/17 09:03 Dose: 1 mg Pantoprazole Sodium (Protonix Ec Tab) 40 mg PO DAILY [facility] Last Admin: 08/25/17 09:03 Dose: 40 mg Petrolatum (Desitin Original) 1 gm TOP TID [facility] Last Admin: 08/25/17 17:52 Dose: 1 applic Rifaximin (Xifaxan) 550 mg PO BID [facility] Last Admin: 08/25/17 17:52 Dose: 550 mg Sodium Bicarbonate (Sodium Bicarbonate Tab) 1,300 mg PO TID [facility] Last Admin: 08/25/17 17:55 Dose: 1,300 mg Sodium Chloride (Sodium Chloride Tab) 1 gm PO BID [facility] Last Admin: 08/25/17 17:52 Dose: 1 gm Spironolactone (Aldactone) 50 mg PO BID [facility] Last Admin: 08/25/17 17:52 Dose: 50 mg Thiamine HCl (Vitamin B1 Tab) 100 mg PO BID [facility] Last Admin: 08/25/17 17:55 Dose: 100 mg - Labs Labs: 08/25/17 07:03 08/25/17 07:03 PT 17.9 SECONDS (9.7-12.2) H 08/16/17 07:11 INR 1.6 08/16/17 07:11 APTT 34 SECONDS (21-34) 07/18/17 13:52 - Additional Findings Additional findings: - Constitutional Appears: No Acute Distress, Chronically Ill - Head Exam Head Exam: ATRAUMATIC, NORMAL INSPECTION - Eye Exam Eye Exam: EOMI, Normal appearance - ENT Exam ENT Exam: Mucous Membranes Moist - Respiratory Exam Respiratory Exam: Clear to Auscultation Bilateral, NORMAL BREATHING PATTERN, Wheezing - Cardiovascular Exam Cardiovascular Exam: REGULAR RHYTHM, +S1, +S2 - GI/Abdominal Exam GI & Abdominal Exam: Soft, Tenderness (diffuse), Normal Bowel Sounds, Non- distended - Neurological Exam Neurological Exam: Alert, Awake, Oriented x3 - Psychiatric Exam Psychiatric exam: Normal Affect, Normal Mood - Skin Skin Exam: Dry, Warm Assessment and Plan - Assessment and Plan (Free Text) Plan: Ascites and hepatic encephalopathy Consult GI, Dr South, help appreciated CT abd/pelvis shows small to moderate ascites Paracentesis done 07/19/17 with 2.1 L straw colored fluid removed. * peritoneal fluid no growth * Fluid WBC: 147, RBC: 216, neut: 41, lymph: 43, monocyte/macrophage: 15 Repeat paracentesis 08/04/17--4 Liters removed. Replenished with albumin 12.5 gm x2 doses Ammonia level on 08/09: 57--Xifaximin 550 mg PO BID restarted Lactulose 10 mg PO BID with holding parameters in nursing communication to hold if more than 2 consecutive loose stool episodes. Fever, working diagnosis SBP though unlikely due to fluid WBCs Rocephin 1 gm daily empirically started on 08/15/17. Likely not SBP but will treat for total of 3 days Paracentesis 08/16/17--2.5 liters of straw colored fluid f/u fluid studies Colitis and Diarrhea No leukocytosis, afebrile giardia negative, stool ova and parasite negative, stool culture negative blood culture negative negative HIV and hep panel fecal fat study: normal c dif neg x 3 Desitin cream ordered for gluteal and sacral excoriations due to the uncontrolled loose stools. Excoriations improved. Imaging: CT abd/pelvis with IV contrast 07/17: Significant bowel wall thickening involving the colon, appearance most consistent with acute colitis, cannot exclude underlying neoplasm. Small to moderate ascites. Fatty infiltration of the liver. Heterogeneous appearance to hepatic parenchyma. Some of appearance may be due to transient hepatic attenuation differences, concern for underlying lesion. Meds: Cipro 400 IV daily--discontinued Flagyl 500 IV Q8--discontinued Endoscopy (07/28): small hiatal hernia, patchy mild inflammation in gastric antrum biopsies, scalloped mucosa found in duodenum, suspicious for celiac disease- biopsied Colonoscopy (07/28): internal hemorrhoids, mucosal nodule in the sigmoid colon, in transverse colon and in the ascending colon- biopsied Per Dr. South, he suspects pancreatic insufficiency as possible cause due to low stool pancreatic elastase and ordered an MRCP MRCP unable to be obtained due to patient restlessness Dr. South consulted Dr. Guerrero (help appreciated) for evaluation of possible chronic pancreatitis and possible EUS work up * Per Dr. Guerrero, pursue EUS as an outpatient for definitive diagnosis of chronic pancreatitis * Pancreatic enzymes were started with meals and Aldactone increased to 50 mg PO BID by GI team [place] [address] units TID with meals Alcohol abuse/alcohol intoxication/alcohol withdrawal Elevated serum alcohol on admission 292 Seizure and aspiration precautions Ativan 1mg q4h prn for agitation Thiamine 100 mg daily Folic acid 1 mg daily Psych consult, Dr. Man, help appreciated. Detox completed. Hyponatremia Nephrology consult Dr. Middleton, help appreciated Unclear if hyponatremia is due to cirrhosis or hypovolemia from diuretics. Patient previously on trial of NS 100 cc/hr without improvement Hypertonic saline solution on 08/09/17--corrected sodium to 130 Per nephrology to hold diuretics, continue aldactone as allowed by BP Per nephro, NaCL tab 1 gm BID and sodium bicarb supplement 1300 mg PO BID started on 08/15/17 One dose of Tolvaptan given on 08/23/17 by nephro. Patient refused lab work up until 08/25/17 where his sodium was found to be 132. Hypokalemia and Hypomagnesemia Monitor and replete, though patient will intermittently refuse labs Anemia Stable patient transfused 1 u PRBC on 07/20/17 Heme/onc consulted, Dr. Tran help appreciated stool occult blood negative Likely due from bone marrow suppression due to alcohol Tobacco use disorder Nicotine patch S/P Urinary Retention monitor urine output Elevated INR Vitamin K 5mg po daily for a total of 5 days (day 1 on 07/26, last dose to be given on 07/30) continue to monitor Prophylactic Measure/supportive care Pepcid 20mg po BID SCDs, Lovenox 40mg sc daily Simethicone 80mg po BID PT/OT Imodium prn Disposition: Patient with overall poor prognosis. Cirrhosis with ascites, severe pancreatic insufficiency. Patient now DNR/DNI after palliative care discussion. POLST form in the chart. We have moved to attempt to acquire a supply of pancreatic enzymes from [employer] program for the patient. One month supply of medications was secured for the patient (Creon pancreatic enzymes, cholestyramine, lactulose, and Rifaximin[though only 15 day supply was available from the pharmacy]). Patient's friend Mazin Peng [phone] was at bedside on 08/24/17. The friend was updated on the situation, and he will work with the other friend Luis to secure a ticket to [facility] for the patient. Case management referral for hospice. Case DW Dr. Cristina Beth PGY-1 <Js Evans H - Last Filed: 08/26/17 15:32> Objective - Vital Signs/Intake and Output Vital Signs (last 24 hours): Temp Pulse Resp BP Pulse Ox 97.9 F 110 H 20 108/72 98 08/26/17 08:12 08/26/17 09:43 08/26/17 08:12 08/26/17 09:43 08/26/17 08:12 Intake and Output: 08/26/17 08/26/17 06:59 18:59 Intake Total 740 Balance 740 - Medications Medications: Current Medications Albuterol/Ipratropium (Duoneb 3 Mg/0.5 Mg (3 Ml) Ud) 3 ml INH RBID [facility] Last Admin: 08/25/17 20:15 Dose: Not Given Cholestyramine Resin (Questran) 4 gm PO TIDPC [facility] Last Admin: 08/26/17 12:32 Dose: 4 gm Folic Acid (Folic Acid) 1 mg PO DAILY [facility] Last Admin: 08/26/17 09:44 Dose: 1 mg Pantoprazole Sodium (Protonix Ec Tab) 40 mg PO DAILY [facility] Last Admin: 08/26/17 09:43 Dose: 40 mg Petrolatum (Desitin Original) 1 gm TOP TID [facility] Last Admin: 08/26/17 13:22 Dose: 1 applic Rifaximin (Xifaxan) 550 mg PO BID [facility] Last Admin: 08/26/17 09:44 Dose: 550 mg Sodium Bicarbonate (Sodium Bicarbonate Tab) 1,300 mg PO TID [facility] Last Admin: 08/26/17 13:21 Dose: 1,300 mg Sodium Chloride (Sodium Chloride Tab) 1 gm PO BID [facility] Last Admin: 08/26/17 09:44 Dose: 1 gm Spironolactone (Aldactone) 50 mg PO BID [facility] Last Admin: 08/26/17 09:44 Dose: 50 mg Thiamine HCl (Vitamin B1 Tab) 100 mg PO BID [facility] Last Admin: 08/26/17 09:44 Dose: 100 mg - Labs Labs: 08/25/17 07:03 08/25/17 07:03 PT 17.9 SECONDS (9.7-12.2) H 08/16/17 07:11 INR 1.6 08/16/17 07:11 APTT 34 SECONDS (21-34) 07/18/17 13:52 Attending/Attestation - Attestation I have personally seen and examined this patient.: Yes I have fully participated in the care of the patient.: Yes I have reviewed all pertinent clinical information, including history, physical exam and plan: Yes Notes (Text): Medical attending: Patient was seen and examined by me. Agree with the above note by the resident The patient's situtation remains very poor Per my discussion with nursing he is eating very minimally. Weight is 112lbs at this time. We tried to have a discussion with pedrords to hospice. thank you Js Evans
[2017-08-26] MEDS: Cholestyramine 4 gm/Pkt UD PO SCH ×3 (08:39→18:50)
[2017-08-26] MEDS: LIPASE/PROTEASE/AMYLASE 21,000 U ECC PO SCH ×3 (08:51→18:50)
[2017-08-26] MEDS: Pantoprazole 40 mg EC Tab PO SCH (09:43)
[2017-08-26] MEDS: Zinc Oxide Topical 30 gm Tube TOP SCH ×3 (09:46→18:52)
--- NOTE | 2017-08-26 11:49 | CP.PCM.PN ---
Subjective - Date & Time of Evaluation Date of Evaluation: 08/26/17 Time of Evaluation: 11:41 - Subjective Subjective: No significant changes clinically Vital signs remained stable No nausea no vomiting Electrolyte noted serum sodium 132 Hyponatremia related to multifactorial related to liver cirrhosis ethanol. Dilutional . Plan Continue fluid restriction about 900 mL per 24 hours Continue monitor Objective - Vital Signs/Intake and Output Vital Signs (last 24 hours): Temp Pulse Resp BP Pulse Ox 97.9 F 110 H 20 108/72 98 08/26/17 08:12 08/26/17 09:43 08/26/17 08:12 08/26/17 09:43 08/26/17 08:12 - Medications Medications: Current Medications Albuterol/Ipratropium (Duoneb 3 Mg/0.5 Mg (3 Ml) Ud) 3 ml INH RBID [facility] Last Admin: 08/25/17 20:15 Dose: Not Given Cholestyramine Resin (Questran) 4 gm PO TIDPC [facility] Last Admin: 08/26/17 08:39 Dose: 4 gm Folic Acid (Folic Acid) 1 mg PO DAILY [facility] Last Admin: 08/26/17 09:44 Dose: 1 mg Pantoprazole Sodium (Protonix Ec Tab) 40 mg PO DAILY [facility] Last Admin: 08/26/17 09:43 Dose: 40 mg Petrolatum (Desitin Original) 1 gm TOP TID [facility] Last Admin: 08/26/17 09:46 Dose: 1 applic Rifaximin (Xifaxan) 550 mg PO BID [facility] Last Admin: 08/26/17 09:44 Dose: 550 mg Sodium Bicarbonate (Sodium Bicarbonate Tab) 1,300 mg PO TID [facility] Last Admin: 08/26/17 09:44 Dose: 1,300 mg Sodium Chloride (Sodium Chloride Tab) 1 gm PO BID [facility] Last Admin: 08/26/17 09:44 Dose: 1 gm Spironolactone (Aldactone) 50 mg PO BID [facility] Last Admin: 08/26/17 09:44 Dose: 50 mg Thiamine HCl (Vitamin B1 Tab) 100 mg PO BID [facility] Last Admin: 08/26/17 09:44 Dose: 100 mg - Labs Labs: 08/25/17 07:03 08/25/17 07:03 PT 17.9 SECONDS (9.7-12.2) H 08/16/17 07:11 INR 1.6 08/16/17 07:11 APTT 34 SECONDS (21-34) 07/18/17 13:52 Assessment and Plan (1) Hyponatremia Status: Acute
[2017-08-26] MEDS: Albuterol-Ipratrop 3 mg / 0.5 (3 ml) UD INH SCH (19:28)
--- NOTE | 2017-08-27 01:48 | CP.PCM.PN ---
<Prakash Morales - Last Filed: 08/27/17 01:49> Subjective - Date & Time of Evaluation Date of Evaluation: 08/27/17 Time of Evaluation: 06:47 - Subjective Subjective: Medicine progress note for Dr. Evans Patient seen and examined. Patient reports no BM overnight. Per nursing staff, he had a soft BM later in the morning. Objective - Vital Signs/Intake and Output Vital Signs (last 24 hours): Temp Pulse Resp BP Pulse Ox 98.5 F 76 20 133/68 100 08/26/17 18:34 08/26/17 18:34 08/26/17 18:34 08/26/17 18:34 08/26/17 16:00 Intake and Output: 08/26/17 08/27/17 18:59 06:59 Intake Total 740 Output Total 100 Balance 640 - Medications Medications: Current Medications Albuterol/Ipratropium (Duoneb 3 Mg/0.5 Mg (3 Ml) Ud) 3 ml INH RBID [facility] Last Admin: 08/26/17 19:28 Dose: 3 ml Cholestyramine Resin (Questran) 4 gm PO TIDPC [facility] Last Admin: 08/26/17 18:50 Dose: 4 gm Folic Acid (Folic Acid) 1 mg PO DAILY [facility] Last Admin: 08/26/17 09:44 Dose: 1 mg Pantoprazole Sodium (Protonix Ec Tab) 40 mg PO DAILY [facility] Last Admin: 08/26/17 09:43 Dose: 40 mg Petrolatum (Desitin Original) 1 gm TOP TID [facility] Last Admin: 08/26/17 18:52 Dose: 1 applic Rifaximin (Xifaxan) 550 mg PO BID [facility] Last Admin: 08/26/17 18:51 Dose: 550 mg Sodium Bicarbonate (Sodium Bicarbonate Tab) 1,300 mg PO TID [facility] Last Admin: 08/26/17 18:51 Dose: 1,300 mg Sodium Chloride (Sodium Chloride Tab) 1 gm PO BID [facility] Last Admin: 08/26/17 18:51 Dose: 1 gm Spironolactone (Aldactone) 50 mg PO BID [facility] Last Admin: 08/26/17 18:49 Dose: 50 mg Thiamine HCl (Vitamin B1 Tab) 100 mg PO BID [facility] Last Admin: 08/26/17 18:51 Dose: 100 mg - Labs Labs: 08/25/17 07:03 02/08/18 07:03 PT 17.9 SECONDS (9.7-12.2) H 08/16/17 07:11 INR 1.6 08/16/17 07:11 APTT 34 SECONDS (21-34) 07/18/17 13:52 - Head Exam Head Exam: ATRAUMATIC, NORMAL INSPECTION, NORMOCEPHALIC - Eye Exam Eye Exam: EOMI, Normal appearance, PERRL. absent: Periorbital tenderness Pupil Exam: NORMAL ACCOMODATION, PERRL. absent: Irregular, Unequal - ENT Exam ENT Exam: Mucous Membranes Moist, Normal Oropharynx - Neck Exam Neck Exam: Normal Inspection. absent: Lymphadenopathy, Thyromegaly - Respiratory Exam Respiratory Exam: Clear to Ausculation Bilateral, NORMAL BREATHING PATTERN. absent: Chest Wall Tenderness, Prolonged Expiratory Phase, Respiratory Distress - Cardiovascular Exam Cardiovascular Exam: REGULAR RHYTHM, RRR, +S1, +S2. absent: Gallop, Rubs - GI/Abdominal Exam GI & Abdominal Exam: Soft, Normal Bowel Sounds. absent: Rigid, Hyperactive Bowel Sounds - Extremities Exam Extremities Exam: Full ROM, Normal Inspection. absent: Joint Swelling, Pedal Edema - Back Exam Back Exam: NORMAL INSPECTION. absent: CVA tenderness (L), CVA tenderness (R), paraspinal tenderness - Neurological Exam Neurological Exam: Alert, Awake, CN II-XII Intact, Oriented x3 - Psychiatric Exam Psychiatric exam: Normal Affect, Normal Mood - Skin Skin Exam: Dry, Intact Assessment and Plan - Assessment and Plan (Free Text) Plan: Ascites and hepatic encephalopathy Consult GI, Dr South, help appreciated CT abd/pelvis shows small to moderate ascites Paracentesis done 07/19/17 with 2.1 L straw colored fluid removed. * peritoneal fluid no growth * Fluid WBC: 147, RBC: 216, neut: 41, lymph: 43, monocyte/macrophage: 15 Repeat paracentesis 08/04/17--4 Liters removed. Replenished with albumin 12.5 gm x2 doses Ammonia level on 08/09: 57--Xifaximin 550 mg PO BID restarted Lactulose 10 mg PO BID with holding parameters in nursing communication to hold if more than 2 consecutive loose stool episodes. Fever, working diagnosis SBP though unlikely due to fluid WBCs Rocephin 1 gm daily empirically started on 08/15/17. Likely not SBP but will treat for total of 3 days Paracentesis 08/16/17--2.5 liters of straw colored fluid f/u fluid studies Colitis and Diarrhea No leukocytosis, afebrile giardia negative, stool ova and parasite negative, stool culture negative blood culture negative negative HIV and hep panel fecal fat study: normal c dif neg x 3 Desitin cream ordered for gluteal and sacral excoriations due to the uncontrolled loose stools. Excoriations improved. Imaging: CT abd/pelvis with IV contrast 07/17: Significant bowel wall thickening involving the colon, appearance most consistent with acute colitis, cannot exclude underlying neoplasm. Small to moderate ascites. Fatty infiltration of the liver. Heterogeneous appearance to hepatic parenchyma. Some of appearance may be due to transient hepatic attenuation differences, concern for underlying lesion. Meds: Cipro 400 IV daily--discontinued Flagyl 500 IV Q8--discontinued Endoscopy (07/28): small hiatal hernia, patchy mild inflammation in gastric antrum biopsies, scalloped mucosa found in duodenum, suspicious for celiac disease- biopsied Colonoscopy (07/28): internal hemorrhoids, mucosal nodule in the sigmoid colon, in transverse colon and in the ascending colon- biopsied Per Dr. South, he suspects pancreatic insufficiency as possible cause due to low stool pancreatic elastase and ordered an MRCP MRCP unable to be obtained due to patient restlessness Dr. South consulted Dr. Guerrero (help appreciated) for evaluation of possible chronic pancreatitis and possible EUS work up * Per Dr. Guerrero, pursue EUS as an outpatient for definitive diagnosis of chronic pancreatitis * Pancreatic enzymes were started with meals and Aldactone increased to 50 mg PO BID by GI team [place] [address] units TID with meals Alcohol abuse/alcohol intoxication/alcohol withdrawal Elevated serum alcohol on admission 292 Seizure and aspiration precautions Ativan 1mg q4h prn for agitation Thiamine 100 mg daily Folic acid 1 mg daily Psych consult, Dr. Man, help appreciated. Detox completed. Hyponatremia Nephrology consult Dr. Middleton, help appreciated Unclear if hyponatremia is due to cirrhosis or hypovolemia from diuretics. Patient previously on trial of NS 100 cc/hr without improvement Hypertonic saline solution on 08/09/17--corrected sodium to 130 Per nephrology to hold diuretics, continue aldactone as allowed by BP Per nephro, NaCL tab 1 gm BID and sodium bicarb supplement 1300 mg PO BID started on 08/15/17 One dose of Tolvaptan given on 08/23/17 by nephro. Patient refused lab work up until 08/25/17 where his sodium was found to be 132. Hypokalemia and Hypomagnesemia Monitor and replete, though patient will intermittently refuse labs Anemia Stable patient transfused 1 u PRBC on 07/20/17 Heme/onc consulted, Dr. Tran help appreciated stool occult blood negative Likely due from bone marrow suppression due to alcohol Tobacco use disorder Nicotine patch S/P Urinary Retention monitor urine output Elevated INR Vitamin K 5mg po daily for a total of 5 days (day 1 on 07/26, last dose to be given on 07/30) continue to monitor Prophylactic Measure/supportive care Pepcid 20mg po BID SCDs, Lovenox 40mg sc daily Simethicone 80mg po BID PT/OT Imodium prn Disposition: Patient with overall poor prognosis. Cirrhosis with ascites, severe pancreatic insufficiency. Patient now DNR/DNI after palliative care discussion. POLST form in the chart. We have moved to attempt to acquire a supply of pancreatic enzymes from [employer] program for the patient. One month supply of medications was secured for the patient (Creon pancreatic enzymes, cholestyramine, lactulose, and Rifaximin[though only 15 day supply was available from the pharmacy]). Patient's friend Mazin Peng [phone] was at bedside on 08/24/17. The friend was updated on the situation, and he will work with the other friend Luis to secure a ticket to [facility] for the patient. We have re-consulted palliative care for hospice discussion. <Js Evans - Last Filed: 08/27/17 10:15> Objective - Vital Signs/Intake and Output Vital Signs (last 24 hours): Temp Pulse Resp BP Pulse Ox 98.8 F 80 20 110/65 99 08/27/17 08:33 08/27/17 08:33 08/27/17 08:33 08/27/17 08:33 08/27/17 08:33 - Medications Medications: Current Medications Albuterol/Ipratropium (Duoneb 3 Mg/0.5 Mg (3 Ml) Ud) 3 ml INH RBID [facility] Last Admin: 08/27/17 07:45 Dose: 3 ml Cholestyramine Resin (Questran) 4 gm PO TIDPC [facility] Last Admin: 08/27/17 09:29 Dose: 4 gm Folic Acid (Folic Acid) 1 mg PO DAILY [facility] Last Admin: 08/27/17 09:29 Dose: 1 mg Pantoprazole Sodium (Protonix Ec Tab) 40 mg PO DAILY [facility] Last Admin: 08/27/17 09:29 Dose: 40 mg Petrolatum (Desitin Original) 1 gm TOP TID [facility] Last Admin: 08/27/17 09:29 Dose: 1 applic Rifaximin (Xifaxan) 550 mg PO BID [facility] Last Admin: 08/27/17 09:29 Dose: 550 mg Sodium Bicarbonate (Sodium Bicarbonate Tab) 1,300 mg PO TID [facility] Last Admin: 08/27/17 09:29 Dose: 1,300 mg Sodium Chloride (Sodium Chloride Tab) 1 gm PO BID [facility] Last Admin: 08/27/17 09:29 Dose: 1 gm Spironolactone (Aldactone) 50 mg PO BID [facility] Last Admin: 08/27/17 09:29 Dose: 50 mg Thiamine HCl (Vitamin B1 Tab) 100 mg PO BID [facility] Last Admin: 08/27/17 09:29 Dose: 100 mg - Labs Labs: 08/25/17 07:03 08/25/17 07:03 PT 17.9 SECONDS (9.7-12.2) H 08/16/17 07:11 INR 1.6 08/16/17 07:11 APTT 34 SECONDS (21-34) 07/18/17 13:52 Attending/Attestation - Attestation I have personally seen and examined this patient.: Yes I have fully participated in the care of the patient.: Yes I have reviewed all pertinent clinical information, including history, physical exam and plan: Yes Notes (Text): Medical attending: Patient was seen and examined by me Agree with the above note by the resident The patient reported two episodes of watery stool this morning. His appetite remains very minimal I appreciate palliative care nurse seeing patient again and having conversation with him Hospice Evaluation He is already DNR and DNI He does not have family, financial, or social support. There have been friends visiting however nothing has come from out meetings and discussion. He remains weak, difficulty walking. Js Evans
[2017-08-27] MEDS: Albuterol-Ipratrop 3 mg / 0.5 (3 ml) UD INH SCH ×2 (07:45→20:01)
[2017-08-27] MEDS: LIPASE/PROTEASE/AMYLASE 21,000 U ECC PO SCH ×3 (07:49→17:43)
[2017-08-27] MEDS: Zinc Oxide Topical 30 gm Tube TOP SCH ×3 (09:29→17:43)
[2017-08-27] MEDS: Cholestyramine 4 gm/Pkt UD PO SCH ×3 (09:29→17:43)
[2017-08-27] MEDS: Pantoprazole 40 mg EC Tab PO SCH (09:29)
[2017-08-27 11:41] LABS: BASO # 0.1 K/uL (0.0-0.2); BASO % 0.9 % (0.0-2.0); EOS % 0.4 % (0.0-4.0); HEMOGLOBIN 7.5 g/dL (12.0-18.0); LYMPH # 1.4 K/uL (1.0-4.3); LYMPH % 17.1 % (20.0-40.0); MEAN CELL VOLUME 86.8 fL (80.0-94.0); MEAN CORPUSCULAR HEMOGLOBIN 29.3 pg (27.0-31.0); MEAN CORPUSCULAR HGB CONC 33.7 g/dL (33.0-37.0); MEAN PLATELET VOLUME 8.7 fL (7.2-11.7); MONO # 0.6 K/uL (0.0-0.8); MONO % 7.6 % (0.0-10.0); NEUT # 6.1 K/uL (1.8-7.0); RBC 2.58 Mil/uL (4.40-5.90); RED CELL DISTRIBUTION WIDTH 17.2 % (11.5-14.5); WHITE BLOOD COUNT 8.3 K/uL (4.8-10.8)
[2017-08-27 11:55] LABS: ALB/GLOB RATIO 0.6 (1.0-2.1); ALBUMIN 2.2 g/dL (3.5-5.0); ALT/SGPT 28 U/L (21-72); AST/SGOT 57 U/L (17-59); BLOOD UREA NITROGEN 10 mg/dL (9-20); CALCIUM 7.8 mg/dl (8.6-10.4); GFR AFRICAN-AMERICAN > 60; GFR NON-AFRICAN AMERICAN > 60; MAGNESIUM 1.6 mg/dL (1.6-2.3)
--- NOTE | 2017-08-27 16:32 | CP.PCM.PN ---
Subjective - Date & Time of Evaluation Date of Evaluation: 08/27/17 Time of Evaluation: 16:31 - Subjective Subjective: RENAL FOLLOW UP Hyponatremia multifactorial, due to diuretics and ongoing GI volume loss due to enterocolitis, ADH stimulation, chronic etoh Cirrhosis, smoker and Etoh abuse Hypomagnesemia Plan na stable no need for tolvaptan today f/u palliative care on bicarb S: seen and examined has no complaints Physical Examination: General Appearance: Comfortable, in no acute respiratory distress, co-operative . ill appearing Head; Atraumatic, normocephalic ENT: no ulcers EYES: Sclera is anicteric. Neck; supple Lungs: Normal respiratory rate/effort. Breath sounds bilateral equal and clear Heart: normal rate. s1s2 normal. No rub or gallop. Extremities: no edema. No varicose veins Neurological: Patient is awake alert Skin: Warm and dry. Abdomen: Abdomen is soft. Bowel sounds +. + fluid wave Psych: limited insight Objective - Vital Signs/Intake and Output Vital Signs (last 24 hours): Temp Pulse Resp BP Pulse Ox 98.8 F 80 20 110/65 99 08/27/17 08:33 08/27/17 08:33 08/27/17 08:33 08/27/17 08:33 08/27/17 08:33 - Medications Medications: Current Medications Albuterol/Ipratropium (Duoneb 3 Mg/0.5 Mg (3 Ml) Ud) 3 ml INH RBID [facility] Last Admin: 08/27/17 07:45 Dose: 3 ml Cholestyramine Resin (Questran) 4 gm PO TIDPC [facility] Last Admin: 08/27/17 13:46 Dose: 4 gm Folic Acid (Folic Acid) 1 mg PO DAILY [facility] Last Admin: 08/27/17 09:29 Dose: 1 mg Pantoprazole Sodium (Protonix Ec Tab) 40 mg PO DAILY [facility] Last Admin: 08/27/17 09:29 Dose: 40 mg Petrolatum (Desitin Original) 1 gm TOP TID [facility] Last Admin: 08/27/17 13:46 Dose: 1 applic Rifaximin (Xifaxan) 550 mg PO BID [facility] Last Admin: 08/27/17 09:29 Dose: 550 mg Sodium Bicarbonate (Sodium Bicarbonate Tab) 1,300 mg PO TID [facility] Last Admin: 08/27/17 13:46 Dose: 1,300 mg Sodium Chloride (Sodium Chloride Tab) 1 gm PO BID [facility] Last Admin: 08/27/17 09:29 Dose: 1 gm Spironolactone (Aldactone) 50 mg PO BID [facility] Last Admin: 08/27/17 09:29 Dose: 50 mg Thiamine HCl (Vitamin B1 Tab) 100 mg PO BID [facility] Last Admin: 08/27/17 09:29 Dose: 100 mg - Labs Labs: 08/27/17 11:37 08/27/17 11:37 PT 17.9 SECONDS (9.7-12.2) H 08/16/17 07:11 INR 1.6 08/16/17 07:11 APTT 34 SECONDS (21-34) 07/18/17 13:52
--- NOTE | 2017-08-28 00:21 | CP.PCM.PN ---
Subjective - Date & Time of Evaluation Date of Evaluation: 08/28/17 Time of Evaluation: 06:20 - Subjective Subjective: Medicine progress note for Dr. Evans Patient seen and examined. Patient reports no BM overnight. Per nursing staff, he had a soft BM later in the morning. Objective - Vital Signs/Intake and Output Vital Signs (last 24 hours): Temp Pulse Resp BP Pulse Ox 97.8 F 131 H 20 101/64 95 08/27/17 16:57 08/27/17 16:57 08/27/17 16:57 08/27/17 16:57 08/27/17 16:57 - Medications Medications: Current Medications Albuterol/Ipratropium (Duoneb 3 Mg/0.5 Mg (3 Ml) Ud) 3 ml INH RBID [facility] Last Admin: 08/27/17 20:01 Dose: 3 ml Cholestyramine Resin (Questran) 4 gm PO TIDPC [facility] Last Admin: 08/27/17 17:43 Dose: 4 gm Folic Acid (Folic Acid) 1 mg PO DAILY [facility] Last Admin: 08/27/17 09:29 Dose: 1 mg Pantoprazole Sodium (Protonix Ec Tab) 40 mg PO DAILY [facility] Last Admin: 08/27/17 09:29 Dose: 40 mg Petrolatum (Desitin Original) 1 gm TOP TID [facility] Last Admin: 08/27/17 17:43 Dose: 1 applic Rifaximin (Xifaxan) 550 mg PO BID [facility] Last Admin: 08/27/17 17:45 Dose: 550 mg Sodium Bicarbonate (Sodium Bicarbonate Tab) 1,300 mg PO TID [facility] Last Admin: 08/27/17 17:43 Dose: 1,300 mg Sodium Chloride (Sodium Chloride Tab) 1 gm PO BID [facility] Last Admin: 08/27/17 17:43 Dose: 1 gm Spironolactone (Aldactone) 50 mg PO BID [facility] Last Admin: 08/27/17 17:43 Dose: 50 mg Thiamine HCl (Vitamin B1 Tab) 100 mg PO BID [facility] Last Admin: 08/27/17 17:43 Dose: 100 mg - Labs Labs: 08/27/17 11:37 08/27/17 11:37 PT 17.9 SECONDS (9.7-12.2) H 08/16/17 07:11 INR 1.6 08/16/17 07:11 APTT 34 SECONDS (21-34) 07/18/17 13:52 - Head Exam Head Exam: ATRAUMATIC, NORMAL INSPECTION, NORMOCEPHALIC - Eye Exam Eye Exam: EOMI, Normal appearance, PERRL Pupil Exam: NORMAL ACCOMODATION, PERRL - ENT Exam ENT Exam: Mucous Membranes Moist, Normal Oropharynx - Neck Exam Neck Exam: Normal Inspection. absent: Lymphadenopathy, Thyromegaly - Respiratory Exam Respiratory Exam: Clear to Ausculation Bilateral, NORMAL BREATHING PATTERN. absent: Chest Wall Tenderness, Prolonged Expiratory Phase, Respiratory Distress - Cardiovascular Exam Cardiovascular Exam: REGULAR RHYTHM, +S1, +S2 - GI/Abdominal Exam GI & Abdominal Exam: Soft, Normal Bowel Sounds - Extremities Exam Extremities Exam: absent: Pedal Edema - Back Exam Back Exam: NORMAL INSPECTION. absent: CVA tenderness (L), CVA tenderness (R), paraspinal tenderness - Neurological Exam Neurological Exam: Alert, Awake, CN II-XII Intact, Normal Gait - Psychiatric Exam Psychiatric exam: Normal Affect, Normal Mood - Skin Skin Exam: Dry, Intact Assessment and Plan - Assessment and Plan (Free Text) Plan: Ascites and hepatic encephalopathy Consult GI, Dr South, help appreciated CT abd/pelvis shows small to moderate ascites Paracentesis done 07/19/17 with 2.1 L straw colored fluid removed. * peritoneal fluid no growth * Fluid WBC: 147, RBC: 216, neut: 41, lymph: 43, monocyte/macrophage: 15 Repeat paracentesis 08/04/17--4 Liters removed. Replenished with albumin 12.5 gm x2 doses Ammonia level on 08/09: 57--Xifaximin 550 mg PO BID restarted Lactulose 10 mg PO BID with holding parameters in nursing communication to hold if more than 2 consecutive loose stool episodes. Fever, working diagnosis SBP though unlikely due to fluid WBCs Rocephin 1 gm daily empirically started on 08/15/17. Likely not SBP but will treat for total of 3 days Paracentesis 08/16/17--2.5 liters of straw colored fluid f/u fluid studies Colitis and Diarrhea No leukocytosis, afebrile giardia negative, stool ova and parasite negative, stool culture negative blood culture negative negative HIV and hep panel fecal fat study: normal c dif neg x 3 Desitin cream ordered for gluteal and sacral excoriations due to the uncontrolled loose stools. Excoriations improved. Imaging: CT abd/pelvis with IV contrast 07/17: Significant bowel wall thickening involving the colon, appearance most consistent with acute colitis, cannot exclude underlying neoplasm. Small to moderate ascites. Fatty infiltration of the liver. Heterogeneous appearance to hepatic parenchyma. Some of appearance may be due to transient hepatic attenuation differences, concern for underlying lesion. Meds: Cipro 400 IV daily--discontinued Flagyl 500 IV Q8--discontinued Endoscopy (07/28): small hiatal hernia, patchy mild inflammation in gastric antrum biopsies, scalloped mucosa found in duodenum, suspicious for celiac disease- biopsied Colonoscopy (07/28): internal hemorrhoids, mucosal nodule in the sigmoid colon, in transverse colon and in the ascending colon- biopsied Per Dr. South, he suspects pancreatic insufficiency as possible cause due to low stool pancreatic elastase and ordered an MRCP MRCP unable to be obtained due to patient restlessness Dr. South consulted Dr. Guerrero (help appreciated) for evaluation of possible chronic pancreatitis and possible EUS work up * Per Dr. Guerrero, pursue EUS as an outpatient for definitive diagnosis of chronic pancreatitis * Pancreatic enzymes were started with meals and Aldactone increased to 50 mg PO BID by GI team [place] [address] units TID with meals Alcohol abuse/alcohol intoxication/alcohol withdrawal Elevated serum alcohol on admission 292 Seizure and aspiration precautions Ativan 1mg q4h prn for agitation Thiamine 100 mg daily Folic acid 1 mg daily Psych consult, Dr. Man, help appreciated. Detox completed. Hyponatremia Nephrology consult Dr. Middleton, help appreciated Unclear if hyponatremia is due to cirrhosis or hypovolemia from diuretics. Patient previously on trial of NS 100 cc/hr without improvement Hypertonic saline solution on 08/09/17--corrected sodium to 130 Per nephrology to hold diuretics, continue aldactone as allowed by BP Per nephro, NaCL tab 1 gm BID and sodium bicarb supplement 1300 mg PO BID started on 08/15/17 One dose of Tolvaptan given on 08/23/17 by nephro. Patient refused lab work up until 08/25/17 where his sodium was found to be 132. Hypokalemia and Hypomagnesemia Monitor and replete, though patient will intermittently refuse labs Anemia Stable patient transfused 1 u PRBC on 07/20/17 Heme/onc consulted, Dr. Tran help appreciated stool occult blood negative Likely due from bone marrow suppression due to alcohol Tobacco use disorder Nicotine patch S/P Urinary Retention monitor urine output Elevated INR Vitamin K 5mg po daily for a total of 5 days (day 1 on 07/26, last dose to be given on 07/30) continue to monitor Prophylactic Measure/supportive care Pepcid 20mg po BID SCDs, Lovenox 40mg sc daily Simethicone 80mg po BID PT/OT Imodium prn Disposition: Patient with overall poor prognosis. Cirrhosis with ascites, severe pancreatic insufficiency. Patient now DNR/DNI after palliative care discussion. POLST form in the chart. We have moved to attempt to acquire a supply of pancreatic enzymes from [employer] program for the patient. One month supply of medications was secured for the patient (Creon pancreatic enzymes, cholestyramine, lactulose, and Rifaximin[though only 15 day supply was available from the pharmacy]). Patient's friend Mazin Peng [phone] was at bedside on 08/24/17. The friend was updated on the situation, and he will work with the other friend Luis to secure a ticket to [facility] for the patient. We have re-consulted palliative care for hospice discussion.
[2017-08-28] MEDS: Albuterol-Ipratrop 3 mg / 0.5 (3 ml) UD INH SCH (07:45)
[2017-08-28] MEDS: LIPASE/PROTEASE/AMYLASE 21,000 U ECC PO SCH ×3 (08:00→17:08)
[2017-08-28 08:29] LABS: BASO # 0.1 K/uL (0.0-0.2); BASO % 1.3 % (0.0-2.0); EOS # 0.1 K/uL (0.0-0.7); EOS % 1.2 % (0.0-4.0); HEMOGLOBIN 7.6 g/dL (12.0-18.0); LYMPH # 2.2 K/uL (1.0-4.3); LYMPH % 28.9 % (20.0-40.0); MEAN CELL VOLUME 86.4 fL (80.0-94.0); MEAN CORPUSCULAR HEMOGLOBIN 28.8 pg (27.0-31.0); MEAN CORPUSCULAR HGB CONC 33.4 g/dL (33.0-37.0); MEAN PLATELET VOLUME 8.9 fL (7.2-11.7); MONO # 0.7 K/uL (0.0-0.8); NEUT # 4.5 K/uL (1.8-7.0); NEUT % 59.6 % (50.0-75.0); RBC 2.65 Mil/uL (4.40-5.90); RED CELL DISTRIBUTION WIDTH 17.4 % (11.5-14.5); WHITE BLOOD COUNT 7.6 K/uL (4.8-10.8)
[2017-08-28 08:48] LABS: ALB/GLOB RATIO 0.6 (1.0-2.1); ALBUMIN 2.2 g/dL (3.5-5.0); ALT/SGPT 26 U/L (21-72); AST/SGOT 55 U/L (17-59); BLOOD UREA NITROGEN 9 mg/dL (9-20); CALCIUM 7.9 mg/dl (8.6-10.4); GFR AFRICAN-AMERICAN > 60; GFR NON-AFRICAN AMERICAN > 60; MAGNESIUM 1.4 mg/dL (1.6-2.3)
[2017-08-28] MEDS: Cholestyramine 4 gm/Pkt UD PO SCH ×3 (10:02→17:59)
[2017-08-28] MEDS: Pantoprazole 40 mg EC Tab PO SCH (10:03)
[2017-08-28] MEDS: Magnesium Sulfate 1 gm in D5W 1 GM/100 ML BAG IVPB SCH ×3 (17:04→18:08)
--- NOTE | 2017-08-29 10:25 | CP.PCM.PN ---
<TimothyNeetu - Last Filed: 08/29/17 13:44> Subjective - Date & Time of Evaluation Date of Evaluation: 08/29/17 Time of Evaluation: 10:22 - Subjective Subjective: Patient seen and examined at bedside. No acute events overnight. Patient resting comfortably in bed with no new complaints at this time. Still having right sided abdominal pain. Denies chest pain, SOB, n&v, diarrhea, leg pain/ swelling. Objective - Vital Signs/Intake and Output Vital Signs (last 24 hours): Temp Pulse Resp BP Pulse Ox 98.6 F 87 20 102/71 100 08/29/17 08:06 08/29/17 08:06 08/29/17 08:06 08/29/17 08:06 08/29/17 08:06 - Medications Medications: Current Medications Cholestyramine Resin (Questran) 4 gm PO TIDPC [facility] Last Admin: 08/28/17 17:59 Dose: 4 gm Pantoprazole Sodium (Protonix Ec Tab) 40 mg PO DAILY [facility] Last Admin: 08/28/17 10:03 Dose: 40 mg Rifaximin (Xifaxan) 550 mg PO BID [facility] Last Admin: 08/28/17 17:59 Dose: 550 mg Sodium Bicarbonate (Sodium Bicarbonate Tab) 1,300 mg PO TID [facility] Last Admin: 08/28/17 17:58 Dose: 1,300 mg Sodium Chloride (Sodium Chloride Tab) 1 gm PO BID [facility] Last Admin: 08/28/17 17:59 Dose: 1 gm Spironolactone (Aldactone) 50 mg PO BID [facility] Last Admin: 08/28/17 18:00 Dose: 50 mg - Labs Labs: 08/28/17 08:18 08/28/17 08:18 PT 17.9 SECONDS (9.7-12.2) H 08/16/17 07:11 INR 1.6 08/16/17 07:11 APTT 34 SECONDS (21-34) 07/18/17 13:52 - Constitutional Appears: Non-toxic, No Acute Distress - Head Exam Head Exam: NORMAL INSPECTION - Eye Exam Eye Exam: EOMI, PERRL - ENT Exam ENT Exam: Mucous Membranes Moist - Respiratory Exam Respiratory Exam: Clear to Ausculation Bilateral, NORMAL BREATHING PATTERN - Cardiovascular Exam Cardiovascular Exam: RRR, +S1, +S2 - GI/Abdominal Exam GI & Abdominal Exam: Distended (ascites ), Soft, Tenderness (LUQ, mild), Normal Bowel Sounds. absent: Guarding - Extremities Exam Extremities Exam: Normal Inspection. absent: Calf Tenderness, Pedal Edema - Neurological Exam Neurological Exam: Alert, Awake - Psychiatric Exam Psychiatric exam: Normal Affect, Normal Mood - Skin Skin Exam: Dry, Intact, Warm Assessment and Plan - Assessment and Plan (Free Text) Plan: Ascites and hepatic encephalopathy GI (Dr South) consulted, help appreciated CT abd/pelvis shows small to moderate ascites Paracentesis * 07/19/17: 2.1 L straw colored fluid removed * peritoneal fluid no growth, negative for malignant cells * Fluid WBC: 147, RBC: 216, neut: 41, lymph: 43, monocyte/macrophage: 15 * 08/04/17: 4 Liters removed - Replenished with albumin 12.5 gm x2 doses * 08/16/17: 2.5 liters of straw colored fluid Ammonia level on 08/09: 57 * Xifaximin 550 mg PO BID restarted * Lactulose 10 mg PO BID (nursing communication to hold if more than 2 consecutive loose stool episodes) Fever - resolved Afebrile since 08/14 Unlikely SBP - peritoneal WBCs too low for Dx 08/18: Discontinued Rocephin 1 gm daily (empirically started on 08/15/17) Colitis and Diarrhea No leukocytosis, afebrile giardia negative, stool ova and parasite negative, stool culture negative blood culture negative negative HIV and hep panel fecal fat study: normal c dif neg x 3 Meds: Completed course of Cipro 400 IV daily and Flagyl 500 IV Q8 Desitin cream ordered for gluteal and sacral excoriations due to the uncontrolled loose stools. Excoriations improved. Imaging: CT abd/pelvis with IV contrast 07/17: Significant bowel wall thickening involving the colon, appearance most consistent with acute colitis, cannot exclude underlying neoplasm. Small to moderate ascites. Fatty infiltration of the liver. Heterogeneous appearance to hepatic parenchyma. Some of appearance may be due to transient hepatic attenuation differences, concern for underlying lesion. Endoscopy (07/28): small hiatal hernia, patchy mild inflammation in gastric antrum biopsies, scalloped mucosa found in duodenum, suspicious for celiac disease- biopsied * Biopsy: chemical gastritis, otherwise benign Colonoscopy (07/28): internal hemorrhoids, mucosal nodule in the sigmoid colon, in transverse colon and in the ascending colon- biopsied * Biopsy: ascending colon edema, transverse colon and @20cm with edema and vascular ectasia Per Dr. South, he suspects pancreatic insufficiency as possible cause due to low stool pancreatic elastase and ordered an MRCP which was unable to be obtained due to patient restlessness Dr. South consulted Dr. Guerrero (help appreciated) for evaluation of possible chronic pancreatitis and possible EUS work up * Per Dr. Guerrero, pursue EUS as an outpatient for definitive diagnosis of chronic pancreatitis * Pancreatic enzymes were started with meals and Aldactone increased to 50 mg PO BID by GI team * [place] [address] units TID with meals Alcohol abuse/alcohol intoxication/alcohol withdrawal Elevated serum alcohol on admission 292 Seizure and aspiration precautions Ativan 1mg q4h prn for agitation Thiamine 100 mg daily Folic acid 1 mg daily Psych consult, Dr. Man, help appreciated. Detox completed. Hyponatremia Nephrology consult Dr. Middleton, help appreciated Unclear if hyponatremia is due to cirrhosis or hypovolemia from diuretics. Patient previously on trial of NS 100 cc/hr without improvement Hypertonic saline solution on 08/09/17--corrected sodium to 130 Per nephrology to hold diuretics, continue aldactone as allowed by BP Per nephro, NaCL tab 1 gm BID and sodium bicarb supplement 1300 mg PO BID started on 08/15/17 One dose of Tolvaptan given on 08/23/17 by nephro. Patient intermittently refusing lab work - last sodium 131 on 08/28 Hypokalemia and Hypomagnesemia Monitor and replete, though patient will intermittently refuse labs Anemia Stable patient transfused 1 u PRBC on 07/20/17 Heme/onc consulted, Dr. Tran help appreciated stool occult blood negative Likely due from bone marrow suppression due to alcohol Tobacco use disorder Nicotine patch S/P Urinary Retention monitor urine output Elevated INR Vitamin K 5mg po daily for a total of 5 days (day 1 on 07/26, last dose to be given on 07/30) Last 1.6 on 08/16 Prophylactic Measure/supportive care Pepcid 20mg po BID SCDs, Lovenox 40mg sc daily Simethicone 80mg po BID PT/OT Imodium prn Disposition: Patient with overall poor prognosis. Cirrhosis with ascites, severe pancreatic insufficiency. Patient now DNR/DNI after palliative care discussion. POLST form in the chart. We have moved to attempt to acquire a supply of pancreatic enzymes from [employer] [facility] for the patient. One month supply of medications was secured for the patient (Creon pancreatic enzymes, cholestyramine, lactulose, and Rifaximin[though only 15 day supply was available from the pharmacy]). Patient's friend Mazin Peng [phone] was at bedside on 08/24/17. The friend was updated on the situation, and he will work with the other friend Luis to secure a ticket to [facility] for the patient. We have re-consulted palliative care for hospice discussion - Brionna recommends [facility] [place] if bed available <Ruth Huitron - Last Filed: 08/29/17 15:50> Objective - Vital Signs/Intake and Output Vital Signs (last 24 hours): Temp Pulse Resp BP Pulse Ox 98.3 F 86 18 118/78 99 08/29/17 15:26 08/29/17 15:26 08/29/17 15:26 08/29/17 15:26 08/29/17 15:26 - Medications Medications: Current Medications Cholestyramine Resin (Questran) 4 gm PO TIDPC [facility] Last Admin: 08/29/17 13:28 Dose: 4 gm Pantoprazole Sodium (Protonix Ec Tab) 40 mg PO DAILY [facility] Last Admin: 08/29/17 10:44 Dose: 40 mg Rifaximin (Xifaxan) 550 mg PO BID [facility] Last Admin: 08/29/17 10:44 Dose: 550 mg Sodium Bicarbonate (Sodium Bicarbonate Tab) 1,300 mg PO TID [facility] Last Admin: 08/29/17 13:28 Dose: 1,300 mg Sodium Chloride (Sodium Chloride Tab) 1 gm PO BID [facility] Last Admin: 08/29/17 10:44 Dose: 1 gm Spironolactone (Aldactone) 50 mg PO BID [facility] Last Admin: 08/29/17 10:43 Dose: 50 mg - Labs Labs: 08/29/17 11:43 08/29/17 11:43 PT 17.9 SECONDS (9.7-12.2) H 08/16/17 07:11 INR 1.6 08/16/17 07:11 APTT 34 SECONDS (21-34) 07/18/17 13:52 Attending/Attestation - Attestation I have personally seen and examined this patient.: Yes I have fully participated in the care of the patient.: Yes I have reviewed all pertinent clinical information, including history, physical exam and plan: Yes Notes (Text): Seen and eamined Denies abdominal pain Patient states that his diarrhea is better.Complaining of difficulty control until he gets to bedside commode case discussed with the resident Nephrology consult appreciated.We will follow his sodium follow palliative care consult
[2017-08-29] MEDS: Cholestyramine 4 gm/Pkt UD PO SCH ×3 (10:43→18:01)
[2017-08-29] MEDS: Pantoprazole 40 mg EC Tab PO SCH (10:44)
[2017-08-29] MEDS: LIPASE/PROTEASE/AMYLASE 21,000 U ECC PO SCH ×3 (10:44→16:41)
[2017-08-29 11:53] LABS: BASO # 0.1 K/uL (0.0-0.2); BASO % 1.1 % (0.0-2.0); EOS # 0.1 K/uL (0.0-0.7); EOS % 1.2 % (0.0-4.0); HEMOGLOBIN 7.9 g/dL (12.0-18.0); LYMPH # 2.1 K/uL (1.0-4.3); LYMPH % 26.7 % (20.0-40.0); MEAN CELL VOLUME 86.2 fL (80.0-94.0); MEAN CORPUSCULAR HGB CONC 33.7 g/dL (33.0-37.0); MONO # 0.7 K/uL (0.0-0.8); MONO % 8.5 % (0.0-10.0); NEUT # 4.9 K/uL (1.8-7.0); NEUT % 62.5 % (50.0-75.0); RBC 2.72 Mil/uL (4.40-5.90); RED CELL DISTRIBUTION WIDTH 17.5 % (11.5-14.5); WHITE BLOOD COUNT 7.8 K/uL (4.8-10.8)
[2017-08-29 12:34] LABS: ALB/GLOB RATIO 0.6 (1.0-2.1); ALBUMIN 2.2 g/dL (3.5-5.0); ALT/SGPT 24 U/L (21-72); AST/SGOT 54 U/L (17-59); BLOOD UREA NITROGEN 9 mg/dL (9-20); CALCIUM 7.9 mg/dl (8.6-10.4); GFR AFRICAN-AMERICAN > 60; GFR NON-AFRICAN AMERICAN > 60; MAGNESIUM 1.8 mg/dL (1.6-2.3)
--- NOTE | 2017-08-29 15:43 | CP.PCM.PN ---
Subjective - Date & Time of Evaluation Date of Evaluation: 08/29/17 Time of Evaluation: 15:41 - Subjective Subjective: Follow up Nephrology Consultation Note Assessment: stable Hyponatremia multifactorial, due to diuretics and ongoing GI volume loss due to enterocolitis, ADH stimulation, chronic etoh Cirrhosis, smoker and Etoh abuse Hypomagnesemia Plan continue to hold diuretics. continue with aldactone as allowed by BP supplement electrolytes as needed avoid correction in serum Na >6-8 meq/24 hr. dose of tolvaptan if serum Na <125 as allowed by pharmacy started NaCl tab 1 gram bid. continue with bicarb supplements glycemic control supplement electrolytes as needed. Further work up as per primary team palliative care involved Thanks for allowing me to participate in care of your patient. Will follow patient with you. Please call if any Qs. Dr Ciro Middleton Office: [phone] Subjective: Noted events overnight. Patients denies CP/palpitation/SOB. had loose stool Physical Examination: General Appearance: Comfortable, in no acute respiratory distress, co-operative . ill appearing Vitals reviewed and noted as below Head; Atraumatic, normocephalic ENT: no ulcers no thrush. Tongue is midline. Oropharynx: no rash or ulcers. EYES: Pupils are equal, round and reactive to light accommodation. Eye muscles and extraocular movement intact. Sclera is anicteric. Neck; supple no lymphadenopathy, no thyromegaly or bruit Lungs: Normal respiratory rate/effort. Breath sounds bilateral equal and clear Heart: normal rate. s1s2 normal. No rub or gallop. Extremities: no edema. No varicose veins Neurological: Patient is awake alert Skin: Warm and dry. Normal turgor. No rash. Palpitation: Normal elasticity for age Abdomen: Abdomen is soft. Bowel sounds +. There is mild abdominal tenderness, no guarding/rigidity no organomegaly. has ascites Psych: limited insight MSK: no joint tenderness or swelling. Digits and nails normal, no deformity : kidney or bladder not palpable Labs/imaging reviewed. Past medical history, past surgical history, family history, social history, allergy reviewed and noted as below Family hx: no hx of CKD. Rest non-contributory Imaging: enterocolitis and atrophic pancreas urine Na 43 and urine osmol 401 Objective - Vital Signs/Intake and Output Vital Signs (last 24 hours): Temp Pulse Resp BP Pulse Ox 98.3 F 86 18 118/78 99 08/29/17 15:26 08/29/17 15:26 08/29/17 15:26 08/29/17 15:26 08/29/17 15:26 - Medications Medications: Current Medications Cholestyramine Resin (Questran) 4 gm PO TIDPC [facility] Last Admin: 08/29/17 13:28 Dose: 4 gm Pantoprazole Sodium (Protonix Ec Tab) 40 mg PO DAILY [facility] Last Admin: 08/29/17 10:44 Dose: 40 mg Rifaximin (Xifaxan) 550 mg PO BID [facility] Last Admin: 08/29/17 10:44 Dose: 550 mg Sodium Bicarbonate (Sodium Bicarbonate Tab) 1,300 mg PO TID [facility] Last Admin: 08/29/17 13:28 Dose: 1,300 mg Sodium Chloride (Sodium Chloride Tab) 1 gm PO BID [facility] Last Admin: 08/29/17 10:44 Dose: 1 gm Spironolactone (Aldactone) 50 mg PO BID [facility] Last Admin: 08/29/17 10:43 Dose: 50 mg - Labs Labs: 08/29/17 11:43 08/29/17 11:43 PT 17.9 SECONDS (9.7-12.2) H 08/16/17 07:11 INR 1.6 08/16/17 07:11 APTT 34 SECONDS (21-34) 07/18/17 13:52
[2017-08-30 07:22] LABS: BASO # 0.1 K/uL (0.0-0.2); BASO % 1.3 % (0.0-2.0); EOS # 0.1 K/uL (0.0-0.7); EOS % 1.4 % (0.0-4.0); HEMOGLOBIN 7.9 g/dL (12.0-18.0); LYMPH # 2.1 K/uL (1.0-4.3); MEAN CELL VOLUME 86.7 fL (80.0-94.0); MEAN CORPUSCULAR HEMOGLOBIN 29.3 pg (27.0-31.0); MEAN CORPUSCULAR HGB CONC 33.9 g/dL (33.0-37.0); MEAN PLATELET VOLUME 8.9 fL (7.2-11.7); MONO # 0.6 K/uL (0.0-0.8); MONO % 9.4 % (0.0-10.0); NEUT # 3.8 K/uL (1.8-7.0); NEUT % 56.9 % (50.0-75.0); RBC 2.68 Mil/uL (4.40-5.90); RED CELL DISTRIBUTION WIDTH 17.2 % (11.5-14.5); WHITE BLOOD COUNT 6.7 K/uL (4.8-10.8)
--- NOTE | 2017-08-30 07:45 | CP.PCM.PN ---
<TimothyWilyNeetu - Last Filed: 08/30/17 09:09> Subjective - Date & Time of Evaluation Date of Evaluation: 08/30/17 Time of Evaluation: 07:44 - Subjective Subjective: Patient seen and examined at bedside. No acute events overnight. Patient had 3 episodes of diarrhea this morning. He otherwise denies any new complaints at this time. Objective - Vital Signs/Intake and Output Vital Signs (last 24 hours): Temp Pulse Resp BP Pulse Ox 98.2 F 83 20 107/68 98 08/29/17 23:45 08/29/17 23:45 08/29/17 23:45 08/29/17 23:45 08/29/17 23:45 Intake and Output: 08/30/17 08/30/17 06:59 18:59 Output Total 300 Balance -300 - Medications Medications: Current Medications Cholestyramine Resin (Questran) 4 gm PO TIDPC [facility] Last Admin: 08/29/17 18:01 Dose: 4 gm Pantoprazole Sodium (Protonix Ec Tab) 40 mg PO DAILY [facility] Last Admin: 08/29/17 10:44 Dose: 40 mg Rifaximin (Xifaxan) 550 mg PO BID [facility] Last Admin: 08/29/17 18:01 Dose: 550 mg Sodium Bicarbonate (Sodium Bicarbonate Tab) 1,300 mg PO TID [facility] Last Admin: 08/29/17 18:01 Dose: 1,300 mg Sodium Chloride (Sodium Chloride Tab) 1 gm PO BID [facility] Last Admin: 08/29/17 18:01 Dose: 1 gm Spironolactone (Aldactone) 50 mg PO BID [facility] Last Admin: 08/29/17 18:01 Dose: 50 mg - Labs Labs: 08/30/17 07:06 08/29/17 11:43 PT 17.9 SECONDS (9.7-12.2) H 08/16/17 07:11 INR 1.6 08/16/17 07:11 APTT 34 SECONDS (21-34) 07/18/17 13:52 - Additional Findings Additional findings: - Constitutional Appears: Non-toxic, No Acute Distress - Head Exam Head Exam: NORMAL INSPECTION - Eye Exam Eye Exam: EOMI, PERRL - ENT Exam ENT Exam: Mucous Membranes Moist - Respiratory Exam Respiratory Exam: Clear to Ausculation Bilateral, NORMAL BREATHING PATTERN - Cardiovascular Exam Cardiovascular Exam: RRR, +S1, +S2 - GI/Abdominal Exam GI & Abdominal Exam: Distended (ascites ), Soft, Tenderness (LUQ, mild), Normal Bowel Sounds. absent: Guarding - Extremities Exam Extremities Exam: Normal Inspection. absent: Calf Tenderness, Pedal Edema - Neurological Exam Neurological Exam: Alert, Awake - Psychiatric Exam Psychiatric exam: Normal Affect, Normal Mood - Skin Skin Exam: Dry, Intact, Warm Assessment and Plan - Assessment and Plan (Free Text) Plan: Ascites and hepatic encephalopathy GI (Dr South) consulted, help appreciated CT abd/pelvis shows small to moderate ascites Paracentesis * 07/19/17: 2.1 L straw colored fluid removed * peritoneal fluid no growth, negative for malignant cells * Fluid WBC: 147, RBC: 216, neut: 41, lymph: 43, monocyte/macrophage: 15 * 08/04/17: 4 Liters removed - Replenished with albumin 12.5 gm x2 doses * 08/16/17: 2.5 liters of straw colored fluid Ammonia level on 08/09: 57 * Xifaximin 550 mg PO BID restarted * Lactulose 10 mg PO BID (nursing communication to hold if more than 2 consecutive loose stool episodes) Fever - resolved Afebrile since 08/14 Unlikely SBP - peritoneal WBCs too low for Dx 08/18: Discontinued Rocephin 1 gm daily (empirically started on 08/15/17) Colitis and Diarrhea No leukocytosis, afebrile giardia negative, stool ova and parasite negative, stool culture negative blood culture negative negative HIV and hep panel fecal fat study: normal c dif neg x 3 Meds: Completed course of Cipro 400 IV daily and Flagyl 500 IV Q8 Desitin cream ordered for gluteal and sacral excoriations due to the uncontrolled loose stools. Excoriations improved. Imaging: CT abd/pelvis with IV contrast 07/17: Significant bowel wall thickening involving the colon, appearance most consistent with acute colitis, cannot exclude underlying neoplasm. Small to moderate ascites. Fatty infiltration of the liver. Heterogeneous appearance to hepatic parenchyma. Some of appearance may be due to transient hepatic attenuation differences, concern for underlying lesion. Endoscopy (07/28): small hiatal hernia, patchy mild inflammation in gastric antrum biopsies, scalloped mucosa found in duodenum, suspicious for celiac disease- biopsied * Biopsy: chemical gastritis, otherwise benign Colonoscopy (07/28): internal hemorrhoids, mucosal nodule in the sigmoid colon, in transverse colon and in the ascending colon- biopsied * Biopsy: ascending colon edema, transverse colon and @20cm with edema and vascular ectasia Per Dr. South, he suspects pancreatic insufficiency as possible cause due to low stool pancreatic elastase and ordered an MRCP which was unable to be obtained due to patient restlessness Dr. South consulted Dr. Guerrero (help appreciated) for evaluation of possible chronic pancreatitis and possible EUS work up * Per Dr. Guerrero, pursue EUS as an outpatient for definitive diagnosis of chronic pancreatitis * Pancreatic enzymes were started with meals and Aldactone increased to 50 mg PO BID by GI team * [place] [address] units TID with meals Alcohol abuse/alcohol intoxication/alcohol withdrawal Elevated serum alcohol on admission 292 Seizure and aspiration precautions Ativan 1mg q4h prn for agitation Thiamine 100 mg daily Folic acid 1 mg daily Psych consult, Dr. Man, help appreciated. Detox completed. Hyponatremia Nephrology consult Dr. Middleton, help appreciated Unclear if hyponatremia is due to cirrhosis or hypovolemia from diuretics. Patient previously on trial of NS 100 cc/hr without improvement Hypertonic saline solution on 08/09/17--corrected sodium to 130 Per nephrology to hold diuretics, continue aldactone as allowed by BP Per nephro, NaCL tab 1 gm BID and sodium bicarb supplement 1300 mg PO BID started on 08/15/17 One dose of Tolvaptan given on 08/23/17 by nephro. Patient intermittently refusing lab work - last sodium 131 on 08/28 Hypokalemia and Hypomagnesemia Monitor and replete, though patient will intermittently refuse labs Anemia Stable patient transfused 1 u PRBC on 07/20/17 Heme/onc consulted, Dr. Tran help appreciated stool occult blood negative Likely due from bone marrow suppression due to alcohol Tobacco use disorder Nicotine patch S/P Urinary Retention monitor urine output Elevated INR Vitamin K 5mg po daily for a total of 5 days (day 1 on 07/26, last dose to be given on 07/30) Last 1.6 on 08/16 Prophylactic Measure/supportive care Pepcid 20mg po BID SCDs, Lovenox 40mg sc daily Simethicone 80mg po BID PT/OT Imodium prn Disposition: Patient with overall poor prognosis. Cirrhosis with ascites, severe pancreatic insufficiency. Patient now DNR/DNI after palliative care discussion. POLST form in the chart. We have moved to attempt to acquire a supply of pancreatic enzymes from [employer] program for the patient. One month supply of medications was secured for the patient (Creon pancreatic enzymes, cholestyramine, lactulose, and Rifaximin[though only 15 day supply was available from the pharmacy]). Patient's friend Mazin Peng [phone] was at bedside on 08/24/17. The friend was updated on the situation, and he will work with the other friend Luis to secure a ticket to [facility] for the patient. We have re-consulted palliative care for hospice discussion - Brionna recommends [facility] if bed available, will follow up with social work <Ruth Huitron - Last Filed: 08/30/17 14:15> Objective - Vital Signs/Intake and Output Vital Signs (last 24 hours): Temp Pulse Resp BP Pulse Ox 98.8 F 82 20 106/70 97 08/30/17 08:00 08/30/17 08:00 08/30/17 08:00 08/30/17 08:00 08/30/17 08:00 Intake and Output: 08/30/17 08/30/17 06:59 18:59 Output Total 300 Balance -300 - Medications Medications: Current Medications Cholestyramine Resin (Questran) 4 gm PO TIDPC [facility] Last Admin: 08/30/17 12:29 Dose: 4 gm Pantoprazole Sodium (Protonix Ec Tab) 40 mg PO DAILY [facility] Last Admin: 08/30/17 11:01 Dose: 40 mg Rifaximin (Xifaxan) 550 mg PO BID [facility] Last Admin: 08/30/17 11:01 Dose: 550 mg Sodium Bicarbonate (Sodium Bicarbonate Tab) 1,300 mg PO TID [facility] Last Admin: 08/30/17 11:01 Dose: 1,300 mg Sodium Chloride (Sodium Chloride Tab) 1 gm PO BID [facility] Last Admin: 08/30/17 11:01 Dose: 1 gm Spironolactone (Aldactone) 50 mg PO BID [facility] Last Admin: 08/30/17 11:01 Dose: 50 mg - Labs Labs: 08/30/17 07:06 08/30/17 07:06 PT 17.9 SECONDS (9.7-12.2) H 08/16/17 07:11 INR 1.6 08/16/17 07:11 APTT 34 SECONDS (21-34) 07/18/17 13:52 Attending/Attestation - Attestation I have personally seen and examined this patient.: Yes I have fully participated in the care of the patient.: Yes I have reviewed all pertinent clinical information, including history, physical exam and plan: Yes Notes (Text): seen and examined Patient was noted ambulating with PT No complain,s/p diarrhea/Loose stool this morning Patient was not able to recall his son's phone number or information. Patient friends wants to help him. He doesn't know where his passport.Not found with his belongings. Call made to his friend Luis. As per his friend his passport is with a travel agency. He is willing to find his passport. 08/30/17 14:08
[2017-08-30 07:55] LABS: ALB/GLOB RATIO 0.6 (1.0-2.1); ALT/SGPT 24 U/L (21-72); AST/SGOT 52 U/L (17-59); BLOOD UREA NITROGEN 9 mg/dL (9-20); CALCIUM 7.9 mg/dl (8.6-10.4); GFR AFRICAN-AMERICAN > 60; GFR NON-AFRICAN AMERICAN > 60; MAGNESIUM 1.5 mg/dL (1.6-2.3)
[2017-08-30] MEDS: Cholestyramine 4 gm/Pkt UD PO SCH ×3 (08:20→18:11)
[2017-08-30] MEDS: LIPASE/PROTEASE/AMYLASE 21,000 U ECC PO SCH ×3 (08:20→16:53)
[2017-08-30] MEDS: Pantoprazole 40 mg EC Tab PO SCH (11:01)
[2017-08-30] MEDS: Magnesium Sulfate 1 gm in D5W 1 GM/100 ML BAG IVPB SCH ×2 (11:01→12:26)
--- NOTE | 2017-08-30 12:58 | CP.PCM.PN ---
Subjective - Date & Time of Evaluation Date of Evaluation: 08/30/17 Time of Evaluation: 12:57 - Subjective Subjective: Follow up Nephrology Consultation Note Assessment: stable Hyponatremia multifactorial, due to diuretics and ongoing GI volume loss due to enterocolitis, ADH stimulation, chronic etoh Cirrhosis, smoker and Etoh abuse Hypomagnesemia Plan continue to hold diuretics. continue with aldactone as allowed by BP supplement electrolytes as needed avoid correction in serum Na >6-8 meq/24 hr. dose of tolvaptan 15 mg if serum Na <125 as allowed by pharmacy started NaCl tab 1 gram bid. continue with bicarb supplements glycemic control supplement electrolytes as needed. dose of IV mag ordered today Further work up as per primary team palliative care involved Thanks for allowing me to participate in care of your patient. Will sign off and see him further on PRN basis. Please call if any Qs. Dr Ciro Middleton Office: [phone] Subjective: Noted events overnight. Patients denies CP/palpitation/SOB. had loose stool Physical Examination: General Appearance: Comfortable, in no acute respiratory distress, co-operative . ill appearing Vitals reviewed and noted as below Head; Atraumatic, normocephalic ENT: no ulcers no thrush. Tongue is midline. Oropharynx: no rash or ulcers. EYES: Pupils are equal, round and reactive to light accommodation. Eye muscles and extraocular movement intact. Sclera is anicteric. Neck; supple no lymphadenopathy, no thyromegaly or bruit Lungs: Normal respiratory rate/effort. Breath sounds bilateral equal and clear Heart: normal rate. s1s2 normal. No rub or gallop. Extremities: no edema. No varicose veins Neurological: Patient is awake alert Skin: Warm and dry. Normal turgor. No rash. Palpitation: Normal elasticity for age Abdomen: Abdomen is soft. Bowel sounds +. There is mild abdominal tenderness, no guarding/rigidity no organomegaly. has ascites Psych: limited insight MSK: no joint tenderness or swelling. Digits and nails normal, no deformity : kidney or bladder not palpable Labs/imaging reviewed. Past medical history, past surgical history, family history, social history, allergy reviewed and noted as below Family hx: no hx of CKD. Rest non-contributory Imaging: enterocolitis and atrophic pancreas urine Na 43 and urine osmol 401 Objective - Vital Signs/Intake and Output Vital Signs (last 24 hours): Temp Pulse Resp BP Pulse Ox 98.8 F 82 20 106/70 97 08/30/17 08:00 08/30/17 08:00 08/30/17 08:00 08/30/17 08:00 08/30/17 08:00 Intake and Output: 08/30/17 08/30/17 06:59 18:59 Output Total 300 Balance -300 - Medications Medications: Current Medications Cholestyramine Resin (Questran) 4 gm PO TIDPC [facility] Last Admin: 08/30/17 12:29 Dose: 4 gm Pantoprazole Sodium (Protonix Ec Tab) 40 mg PO DAILY [facility] Last Admin: 08/30/17 11:01 Dose: 40 mg Rifaximin (Xifaxan) 550 mg PO BID [facility] Last Admin: 08/30/17 11:01 Dose: 550 mg Sodium Bicarbonate (Sodium Bicarbonate Tab) 1,300 mg PO TID [facility] Last Admin: 08/30/17 11:01 Dose: 1,300 mg Sodium Chloride (Sodium Chloride Tab) 1 gm PO BID [facility] Last Admin: 08/30/17 11:01 Dose: 1 gm Spironolactone (Aldactone) 50 mg PO BID [facility] Last Admin: 08/30/17 11:01 Dose: 50 mg - Labs Labs: 08/30/17 07:06 08/30/17 07:06 PT 17.9 SECONDS (9.7-12.2) H 08/16/17 07:11 INR 1.6 08/16/17 07:11 APTT 34 SECONDS (21-34) 07/18/17 13:52
--- NOTE | 2017-08-31 07:57 | CP.PCM.PN ---
<Neetu Aguirre - Last Filed: 08/31/17 13:54> Subjective - Date & Time of Evaluation Date of Evaluation: 08/31/17 Time of Evaluation: 07:53 - Subjective Subjective: Patient seen and examined at bedside. Patient resting comfortably in bed with no new complaints at this time. No acute events overnight. Patient is having left hallux pain since yesterday. Patient had 2 episodes of nonbloody diarrhea overnight. Objective - Vital Signs/Intake and Output Vital Signs (last 24 hours): Temp Pulse Resp BP Pulse Ox 98.6 F 89 20 101/68 98 08/30/17 23:50 08/30/17 23:50 08/30/17 23:50 08/30/17 23:50 08/30/17 23:50 Intake and Output: 08/31/17 08/31/17 06:59 18:59 Output Total 100 Balance -100 - Medications Medications: Current Medications Cholestyramine Resin (Questran) 4 gm PO TIDPC [facility] Last Admin: 08/30/17 18:11 Dose: 4 gm Pantoprazole Sodium (Protonix Ec Tab) 40 mg PO DAILY [facility] Last Admin: 08/30/17 11:01 Dose: 40 mg Rifaximin (Xifaxan) 550 mg PO BID [facility] Last Admin: 08/30/17 18:11 Dose: 550 mg Sodium Bicarbonate (Sodium Bicarbonate Tab) 1,300 mg PO TID [facility] Last Admin: 08/30/17 18:11 Dose: 1,300 mg Sodium Chloride (Sodium Chloride Tab) 1 gm PO BID [facility] Last Admin: 08/30/17 18:11 Dose: 1 gm Spironolactone (Aldactone) 50 mg PO BID [facility] Last Admin: 08/30/17 18:11 Dose: 50 mg - Labs Labs: 08/30/17 07:06 08/30/17 07:06 PT 17.9 SECONDS (9.7-12.2) H 08/16/17 07:11 INR 1.6 08/16/17 07:11 APTT 34 SECONDS (21-34) 07/18/17 13:52 - Additional Findings Additional findings: - Constitutional Appears: Non-toxic, No Acute Distress - Head Exam Head Exam: NORMAL INSPECTION - Eye Exam Eye Exam: EOMI, PERRL - ENT Exam ENT Exam: Mucous Membranes Moist - Respiratory Exam Respiratory Exam: Clear to Ausculation Bilateral, NORMAL BREATHING PATTERN - Cardiovascular Exam Cardiovascular Exam: RRR, +S1, +S2 - GI/Abdominal Exam GI & Abdominal Exam: Distended (ascites ), Soft, Tenderness (LUQ, mild), Normal Bowel Sounds. absent: Guarding - Extremities Exam Extremities Exam: Normal Inspection. absent: Calf Tenderness, Pedal Edema - Neurological Exam Neurological Exam: Alert, Awake - Psychiatric Exam Psychiatric exam: Normal Affect, Normal Mood - Skin Skin Exam: Dry, Intact, Warm Assessment and Plan - Assessment and Plan (Free Text) Plan: Ascites and hepatic encephalopathy GI (Dr South) consulted, help appreciated CT abd/pelvis shows small to moderate ascites Paracentesis * 07/19/17: 2.1 L straw colored fluid removed * peritoneal fluid no growth, negative for malignant cells * Fluid WBC: 147, RBC: 216, neut: 41, lymph: 43, monocyte/macrophage: 15 * 08/04/17: 4 Liters removed - Replenished with albumin 12.5 gm x2 doses * 08/16/17: 2.5 liters of straw colored fluid Ammonia level on 08/09: 57 * Xifaximin 550 mg PO BID restarted * Lactulose 10 mg PO BID (nursing communication to hold if more than 2 consecutive loose stool episodes) Fever - resolved Afebrile since 08/14 Unlikely SBP - peritoneal WBCs too low for Dx 08/18: Discontinued Rocephin 1 gm daily (empirically started on 08/15/17) Colitis and Diarrhea No leukocytosis, afebrile giardia negative, stool ova and parasite negative, stool culture negative blood culture negative negative HIV and hep panel fecal fat study: normal c dif neg x 3 Meds: Completed course of Cipro 400 IV daily and Flagyl 500 IV Q8 Desitin cream ordered for gluteal and sacral excoriations due to the uncontrolled loose stools. Excoriations improved. Imaging: CT abd/pelvis with IV contrast 07/17: Significant bowel wall thickening involving the colon, appearance most consistent with acute colitis, cannot exclude underlying neoplasm. Small to moderate ascites. Fatty infiltration of the liver. Heterogeneous appearance to hepatic parenchyma. Some of appearance may be due to transient hepatic attenuation differences, concern for underlying lesion. Endoscopy (07/28): small hiatal hernia, patchy mild inflammation in gastric antrum biopsies, scalloped mucosa found in duodenum, suspicious for celiac disease- biopsied * Biopsy: chemical gastritis, otherwise benign Colonoscopy (07/28): internal hemorrhoids, mucosal nodule in the sigmoid colon, in transverse colon and in the ascending colon- biopsied * Biopsy: ascending colon edema, transverse colon and @20cm with edema and vascular ectasia Per Dr. South, he suspects pancreatic insufficiency as possible cause due to low stool pancreatic elastase and ordered an MRCP which was unable to be obtained due to patient restlessness Dr. South consulted Dr. Guerrero (help appreciated) for evaluation of possible chronic pancreatitis and possible EUS work up * Per Dr. Guerrero, pursue EUS as an outpatient for definitive diagnosis of chronic pancreatitis * Pancreatic enzymes were started with meals and Aldactone increased to 50 mg PO BID by GI team * [place] [address] units TID with meals Alcohol abuse/alcohol intoxication/alcohol withdrawal Elevated serum alcohol on admission 292 Seizure and aspiration precautions Ativan 1mg q4h prn for agitation Thiamine 100 mg daily Folic acid 1 mg daily Psych consult, Dr. Man, help appreciated. Detox completed. Hyponatremia Nephrology consult Dr. Middleton, help appreciated Unclear if hyponatremia is due to cirrhosis or hypovolemia from diuretics. Patient previously on trial of NS 100 cc/hr without improvement Hypertonic saline solution on 08/09/17--corrected sodium to 130 Per nephrology to hold diuretics, continue aldactone as allowed by BP Per nephro, NaCL tab 1 gm BID and sodium bicarb supplement 1300 mg PO BID started on 08/15/17 One dose of Tolvaptan given on 08/23/17 by nephro. Patient intermittently refusing lab work - last sodium 131 on 08/28 Hypokalemia and Hypomagnesemia Monitor and replete, though patient will intermittently refuse labs Anemia Stable patient transfused 1 u PRBC on 07/20/17 Heme/onc consulted, Dr. Tran help appreciated stool occult blood negative Likely due from bone marrow suppression due to alcohol Tobacco use disorder Nicotine patch S/P Urinary Retention monitor urine output Elevated INR Vitamin K 5mg po daily for a total of 5 days (day 1 on 07/26, last dose to be given on 07/30) Last 1.6 on 08/16 Prophylactic Measure/supportive care Pepcid 20mg po BID SCDs, Lovenox 40mg sc daily Simethicone 80mg po BID PT/OT Imodium prn Disposition: Patient with overall poor prognosis. Cirrhosis with ascites, severe pancreatic insufficiency. Patient now DNR/DNI after palliative care discussion. POLST form in the chart. We have moved to attempt to acquire a supply of pancreatic enzymes from [facility] [employer] program for the patient. One month supply of medications was secured for the patient (Creon pancreatic enzymes, cholestyramine, lactulose, and Rifaximin[though only 15 day supply was available from the pharmacy]). Patient's friend Mazin Peng [phone] was at bedside on 08/24/17. The friend was updated on the situation, and he will work with the other friend Luis to secure a ticket to [facility] for the patient. We have re-consulted palliative care for hospice discussion - Brionna recommends [facility] if bed available, will follow up with social work <Ruth Huitron - Last Filed: 09/01/17 13:02> Objective - Vital Signs/Intake and Output Vital Signs (last 24 hours): Temp Pulse Resp BP Pulse Ox 98.2 F 90 20 100/68 98 09/01/17 09:32 09/01/17 09:32 09/01/17 09:32 09/01/17 09:32 09/01/17 09:32 Intake and Output: 09/01/17 09/01/17 06:59 18:59 Output Total 100 Balance -100 - Medications Medications: Current Medications Cholestyramine Resin (Questran) 4 gm PO TIDPC [facility] Last Admin: 09/01/17 12:38 Dose: 4 gm Pantoprazole Sodium (Protonix Ec Tab) 40 mg PO DAILY [facility] Last Admin: 09/01/17 09:13 Dose: 40 mg Sodium Bicarbonate (Sodium Bicarbonate Tab) 1,300 mg PO TID [facility] Last Admin: 09/01/17 09:13 Dose: 1,300 mg Sodium Chloride (Sodium Chloride Tab) 1 gm PO BID [facility] Last Admin: 09/01/17 09:12 Dose: 1 gm Spironolactone (Aldactone) 50 mg PO BID [facility] Last Admin: 09/01/17 09:12 Dose: 50 mg - Labs Labs: 08/31/17 17:26 08/31/17 17:26 PT 17.9 SECONDS (9.7-12.2) H 08/16/17 07:11 INR 1.6 08/16/17 07:11 APTT 34 SECONDS (21-34) 07/18/17 13:52 Attending/Attestation - Attestation I have personally seen and examined this patient.: No I have fully participated in the care of the patient.: Yes I have reviewed all pertinent clinical information, including history, physical exam and plan: Yes
[2017-08-31] MEDS: LIPASE/PROTEASE/AMYLASE 21,000 U ECC PO SCH ×3 (08:29→17:51)
[2017-08-31] MEDS: Cholestyramine 4 gm/Pkt UD PO SCH ×3 (08:29→17:51)
[2017-08-31] MEDS: Pantoprazole 40 mg EC Tab PO SCH (10:59)
[2017-08-31 17:37] LABS: BASO # 0.1 K/uL (0.0-0.2); BASO % 1.3 % (0.0-2.0); EOS # 0.1 K/uL (0.0-0.7); EOS % 0.9 % (0.0-4.0); HEMOGLOBIN 7.4 g/dL (12.0-18.0); LYMPH % 30.7 % (20.0-40.0); MEAN CELL VOLUME 85.1 fL (80.0-94.0); MEAN CORPUSCULAR HEMOGLOBIN 28.3 pg (27.0-31.0); MEAN CORPUSCULAR HGB CONC 33.2 g/dL (33.0-37.0); MEAN PLATELET VOLUME 8.8 fL (7.2-11.7); MONO # 0.6 K/uL (0.0-0.8); MONO % 9.1 % (0.0-10.0); NEUT # 3.9 K/uL (1.8-7.0); NRBC % 0.1 % (0.0-2.0); RBC 2.63 Mil/uL (4.40-5.90); RED CELL DISTRIBUTION WIDTH 16.8 % (11.5-14.5); WHITE BLOOD COUNT 6.6 K/uL (4.8-10.8)
[2017-08-31 18:16] LABS: ALB/GLOB RATIO 0.6 (1.0-2.1); ALBUMIN 2.1 g/dL (3.5-5.0); ALT/SGPT 24 U/L (21-72); AST/SGOT 51 U/L (17-59); BLOOD UREA NITROGEN 9 mg/dL (9-20); CALCIUM 7.6 mg/dl (8.6-10.4); GFR AFRICAN-AMERICAN > 60; GFR NON-AFRICAN AMERICAN > 60; MAGNESIUM 1.6 mg/dL (1.6-2.3)
[2017-09-01] MEDS: LIPASE/PROTEASE/AMYLASE 21,000 U ECC PO SCH ×3 (09:12→18:42)
[2017-09-01] MEDS: Cholestyramine 4 gm/Pkt UD PO SCH ×3 (09:12→18:42)
[2017-09-01] MEDS: Pantoprazole 40 mg EC Tab PO SCH (09:13)
--- NOTE | 2017-09-01 09:13 | CP.PCM.PN ---
Subjective - Date & Time of Evaluation Date of Evaluation: 08/31/17 Time of Evaluation: 17:00 - Subjective Subjective: Complains of diarrhea. Wants it to stop. Anxious to be released to his friend place. Objective - Vital Signs/Intake and Output Vital Signs (last 24 hours): Temp Pulse Resp BP Pulse Ox 98.9 F 92 H 20 101/67 97 08/31/17 23:45 08/31/17 23:45 08/31/17 23:45 08/31/17 23:45 08/31/17 23:45 Intake and Output: 09/01/17 09/01/17 06:59 18:59 Output Total 100 Balance -100 - Medications Medications: Current Medications Cholestyramine Resin (Questran) 4 gm PO TIDPC [facility] Last Admin: 08/31/17 17:51 Dose: 4 gm Pantoprazole Sodium (Protonix Ec Tab) 40 mg PO DAILY [facility] Last Admin: 08/31/17 10:59 Dose: 40 mg Sodium Bicarbonate (Sodium Bicarbonate Tab) 1,300 mg PO TID [facility] Last Admin: 08/31/17 17:52 Dose: 1,300 mg Sodium Chloride (Sodium Chloride Tab) 1 gm PO BID [facility] Last Admin: 08/31/17 17:52 Dose: 1 gm Spironolactone (Aldactone) 50 mg PO BID [facility] Last Admin: 08/31/17 17:51 Dose: 50 mg - Labs Labs: 08/31/17 17:26 08/31/17 17:26 PT 17.9 SECONDS (9.7-12.2) H 08/16/17 07:11 INR 1.6 08/16/17 07:11 APTT 34 SECONDS (21-34) 07/18/17 13:52 - Constitutional Appears: Chronically Ill - Head Exam Head Exam: ATRAUMATIC, NORMAL INSPECTION, NORMOCEPHALIC - Eye Exam Eye Exam: EOMI, Normal appearance, PERRL Pupil Exam: NORMAL ACCOMODATION, PERRL - ENT Exam ENT Exam: Mucous Membranes Moist, Normal Exam - Neck Exam Neck Exam: Normal Inspection - Respiratory Exam Respiratory Exam: Decreased Breath Sounds, Clear to Ausculation Bilateral, NORMAL BREATHING PATTERN - Cardiovascular Exam Cardiovascular Exam: Tachycardia, REGULAR RHYTHM - GI/Abdominal Exam GI & Abdominal Exam: Guarding, Normal Bowel Sounds Additional comments: diarrhea - Rectal Exam Rectal Exam: Deferred - Exam Exam: NORMAL INSPECTION - Extremities Exam Extremities Exam: Full ROM, Normal Capillary Refill, Normal Inspection - Back Exam Back Exam: NORMAL INSPECTION - Neurological Exam Neurological Exam: Alert, Oriented x3 Neuro motor strength exam: Left Upper Extremity: 3, Right Upper Extremity: 3, Left Lower Extremity: 3, Right Lower Extremity: 3 - Psychiatric Exam Psychiatric exam: Anxious - Skin Skin Exam: Pallor Additional comments: jaundiced Assessment and Plan - Assessment and Plan (Free Text) Assessment: Patient seen and examined in bed, looking chronically ill in no acute distress. Alert, oriented X 3. Patient's friend , Mr. Peng at bed side. Patient's clinical presentation reviewed and signs and symptoms in relation to alcoholic liver cirrhosis explained. Physical exam revealed pale skin, Hb 7.4. Breath sounds diminished, denied cough /chest pain. Abdomen softly distended, pain elicited by palpation to RUQ. Reports tolerance to diet. Reports loose stools, X 2 yesterday. Able to ambulate to bathroom. BP 101/67, HR 92, afebrile, O2Sat 97% RA. WBC 6.6, Na 128, on Na tablets, Alb 2.1, alkaline phosphatase elevated at 148. [place] on board. Na monitored. Goals of care discussed with patient;s friend, Mr. Peng in presence of a patient. Mr. Peng states readiness to take patient home. Him and one more friend found basement where patient could stay. he also states readiness to provide patient with all necessary food and to visit him often. The goal is to get patient safe enough for travel back to his home country, [place]. patient's friends will provide money for the ticket. Impression * Chronically ill man with generalized weakness and electrolyte imbalance * Lack of family support * Patient's friends willing to assist patient with senior care and food after discharge * Patient wishes to return to [place] when stable Suggestions * In the light of patient's diagnosis and overall condition, our primary goal should be to stabilize patient's condition as possible * Once stable, patient could be released to his friend's place * Going back to [place] would be best for the patient if stable to travel as it is what he wishes for. This was discussed with MD. Huitron this morning. Advance care planing, 30 min.
--- NOTE | 2017-09-01 09:18 | CP.PCM.PN ---
<Neetu Aguirre - Last Filed: 09/01/17 11:00> Subjective - Date & Time of Evaluation Date of Evaluation: 09/01/17 Time of Evaluation: 08:59 - Subjective Subjective: Patient seen and examined at bedside. Patient resting comfortably in bed with no new complaints at this time. No acute events overnight. Patient had a soft BM this morning but no diarrhea today. Patient says the pain in his toe is improving. He denies chest pain, SOB, abdominal pain, nausea, vomiting, leg pain /swelling. Objective - Vital Signs/Intake and Output Vital Signs (last 24 hours): Temp Pulse Resp BP Pulse Ox 98.9 F 92 H 20 101/67 97 08/31/17 23:45 08/31/17 23:45 08/31/17 23:45 08/31/17 23:45 08/31/17 23:45 Intake and Output: 09/01/17 09/01/17 06:59 18:59 Output Total 100 Balance -100 - Medications Medications: Current Medications Cholestyramine Resin (Questran) 4 gm PO TIDPC [facility] Last Admin: 08/31/17 17:51 Dose: 4 gm Pantoprazole Sodium (Protonix Ec Tab) 40 mg PO DAILY [facility] Last Admin: 08/31/17 10:59 Dose: 40 mg Sodium Bicarbonate (Sodium Bicarbonate Tab) 1,300 mg PO TID [facility] Last Admin: 08/31/17 17:52 Dose: 1,300 mg Sodium Chloride (Sodium Chloride Tab) 1 gm PO BID [facility] Last Admin: 08/31/17 17:52 Dose: 1 gm Spironolactone (Aldactone) 50 mg PO BID [facility] Last Admin: 08/31/17 17:51 Dose: 50 mg - Labs Labs: 08/31/17 17:26 08/31/17 17:26 PT 17.9 SECONDS (9.7-12.2) H 08/16/17 07:11 INR 1.6 08/16/17 07:11 APTT 34 SECONDS (21-34) 07/18/17 13:52 - Additional Findings Additional findings: - Constitutional Appears: Non-toxic, No Acute Distress - Head Exam Head Exam: NORMAL INSPECTION - Eye Exam Eye Exam: EOMI, PERRL - ENT Exam ENT Exam: Mucous Membranes Moist - Respiratory Exam Respiratory Exam: Clear to Ausculation Bilateral, NORMAL BREATHING PATTERN - Cardiovascular Exam Cardiovascular Exam: RRR, +S1, +S2 - GI/Abdominal Exam GI & Abdominal Exam: Distended (ascites ), Soft, Tenderness (LUQ, mild), Normal Bowel Sounds. absent: Guarding - Extremities Exam Extremities Exam: Normal Inspection. absent: Calf Tenderness, Pedal Edema - Neurological Exam Neurological Exam: Alert, Awake - Psychiatric Exam Psychiatric exam: Normal Affect, Normal Mood - Skin Skin Exam: Dry, Intact, Warm Assessment and Plan - Assessment and Plan (Free Text) Plan: Ascites and hepatic encephalopathy GI (Dr South) consulted, help appreciated CT abd/pelvis shows small to moderate ascites Paracentesis * 07/19/17: 2.1 L straw colored fluid removed * peritoneal fluid no growth, negative for malignant cells * Fluid WBC: 147, RBC: 216, neut: 41, lymph: 43, monocyte/macrophage: 15 * 08/04/17: 4 Liters removed - Replenished with albumin 12.5 gm x2 doses * 08/16/17: 2.5 liters of straw colored fluid * 09/01: ordered for therpeutic paracentesis Ammonia level on 08/09: 57 * Xifaximin 550 mg PO BID restarted * Lactulose 10 mg PO BID (nursing communication to hold if more than 2 consecutive loose stool episodes) Fever - resolved Afebrile since 08/14 Unlikely SBP - peritoneal WBCs too low for Dx 08/18: Discontinued Rocephin 1 gm daily (empirically started on 08/15/17) Colitis and Diarrhea No leukocytosis, afebrile giardia negative, stool ova and parasite negative, stool culture negative blood culture negative negative HIV and hep panel fecal fat study: normal c dif neg x 3 Meds: Completed course of Cipro 400 IV daily and Flagyl 500 IV Q8 Desitin cream ordered for gluteal and sacral excoriations due to the uncontrolled loose stools. Excoriations improved. Imaging: CT abd/pelvis with IV contrast 07/17: Significant bowel wall thickening involving the colon, appearance most consistent with acute colitis, cannot exclude underlying neoplasm. Small to moderate ascites. Fatty infiltration of the liver. Heterogeneous appearance to hepatic parenchyma. Some of appearance may be due to transient hepatic attenuation differences, concern for underlying lesion. Endoscopy (07/28): small hiatal hernia, patchy mild inflammation in gastric antrum biopsies, scalloped mucosa found in duodenum, suspicious for celiac disease- biopsied * Biopsy: chemical gastritis, otherwise benign Colonoscopy (07/28): internal hemorrhoids, mucosal nodule in the sigmoid colon, in transverse colon and in the ascending colon- biopsied * Biopsy: ascending colon edema, transverse colon and @20cm with edema and vascular ectasia Per Dr. South, he suspects pancreatic insufficiency as possible cause due to low stool pancreatic elastase and ordered an MRCP which was unable to be obtained due to patient restlessness Dr. South consulted Dr. Guerrero (help appreciated) for evaluation of possible chronic pancreatitis and possible EUS work up * Per Dr. Guerrero, pursue EUS as an outpatient for definitive diagnosis of chronic pancreatitis * Pancreatic enzymes were started with meals and Aldactone increased to 50 mg PO BID by GI team * [place] [address] units TID with meals Alcohol abuse/alcohol intoxication/alcohol withdrawal Elevated serum alcohol on admission 292 Seizure and aspiration precautions Ativan 1mg q4h prn for agitation Thiamine 100 mg daily Folic acid 1 mg daily Psych consult, Dr. Man, help appreciated. Detox completed. Hyponatremia Nephrology consult Dr. Middleton, help appreciated Unclear if hyponatremia is due to cirrhosis or hypovolemia from diuretics. Patient previously on trial of NS 100 cc/hr without improvement Hypertonic saline solution on 08/09/17--corrected sodium to 130 Per nephrology to hold diuretics, continue aldactone as allowed by BP Per nephro, NaCL tab 1 gm BID and sodium bicarb supplement 1300 mg PO BID started on 08/15/17 One dose of Tolvaptan given on 08/23/17 by nephro. Patient intermittently refusing lab work - last sodium 131 on 08/28 Hypokalemia and Hypomagnesemia Monitor and replete, though patient will intermittently refuse labs Anemia Stable patient transfused 1 u PRBC on 07/20/17 Heme/onc consulted, Dr. Tran help appreciated stool occult blood negative Likely due from bone marrow suppression due to alcohol Tobacco use disorder Nicotine patch S/P Urinary Retention monitor urine output Elevated INR Vitamin K 5mg po daily for a total of 5 days (day 1 on 07/26, last dose to be given on 07/30) Last 1.6 on 08/16 Prophylactic Measure/supportive care Pepcid 20mg po BID SCDs, Lovenox 40mg sc daily Simethicone 80mg po BID PT/OT Imodium prn Disposition: Patient with overall poor prognosis. Cirrhosis with ascites, severe pancreatic insufficiency. Patient now DNR/DNI after palliative care discussion. POLST form in the chart. We have moved to attempt to acquire a supply of pancreatic enzymes from [employer] program for the patient. One month supply of medications was secured for the patient (Creon pancreatic enzymes, cholestyramine, lactulose, and Rifaximin[though only 15 day supply was available from the pharmacy]). Patient's friend Mazin Peng [phone] was at bedside on 08/24/17. The friend was updated on the situation, and he will work with the other friend Luis to secure a ticket to [facility] for the patient. We have re-consulted palliative care for hospice discussion - Brionna saw again on 09/01 and recommends going to stay with the friend he talks about since he has little family support and going back to [place] if he so desires. <Ruth Huitron - Last Filed: 09/01/17 13:07> Objective - Vital Signs/Intake and Output Vital Signs (last 24 hours): Temp Pulse Resp BP Pulse Ox 98.2 F 90 20 100/68 98 09/01/17 09:32 09/01/17 09:32 09/01/17 09:32 09/01/17 09:32 09/01/17 09:32 Intake and Output: 09/01/17 09/01/17 06:59 18:59 Output Total 100 Balance -100 - Medications Medications: Current Medications Cholestyramine Resin (Questran) 4 gm PO TIDPC [facility] Last Admin: 09/01/17 12:38 Dose: 4 gm Pantoprazole Sodium (Protonix Ec Tab) 40 mg PO DAILY [facility] Last Admin: 09/01/17 09:13 Dose: 40 mg Sodium Bicarbonate (Sodium Bicarbonate Tab) 1,300 mg PO TID [facility] Last Admin: 09/01/17 09:13 Dose: 1,300 mg Sodium Chloride (Sodium Chloride Tab) 1 gm PO BID [facility] Last Admin: 09/01/17 09:12 Dose: 1 gm Spironolactone (Aldactone) 50 mg PO BID [facility] Last Admin: 09/01/17 09:12 Dose: 50 mg - Labs Labs: 08/31/17 17:26 08/31/17 17:26 PT 17.9 SECONDS (9.7-12.2) H 08/16/17 07:11 INR 1.6 08/16/17 07:11 APTT 34 SECONDS (21-34) 07/18/17 13:52 Attending/Attestation - Attestation I have personally seen and examined this patient.: Yes I have fully participated in the care of the patient.: Yes I have reviewed all pertinent clinical information, including history, physical exam and plan: Yes Notes (Text): Seen and examined Patient is alert and oriented,Had loose BM once.He is getting better c/o His abdomen is full. Denies pain.Able to walk to the toilet On examination he has tense abdomen due to ascites. We will ask IR for paracentesis We will call his friend I agree with the documentation of the assessment and the plan d/w the resident 09/01/17 13:06
[2017-09-02] MEDS: Cholestyramine 4 gm/Pkt UD PO SCH ×3 (08:35→19:04)
[2017-09-02] MEDS: LIPASE/PROTEASE/AMYLASE 21,000 U ECC PO SCH ×3 (08:35→19:04)
[2017-09-02] MEDS: Pantoprazole 40 mg EC Tab PO SCH (10:41)
--- NOTE | 2017-09-02 11:17 | CP.PCM.PN ---
<TimothyNeetu - Last Filed: 09/02/17 13:59> Subjective - Date & Time of Evaluation Date of Evaluation: 09/02/17 Time of Evaluation: 08:00 - Subjective Subjective: Patient seen and examined at bedside. Patient resting comfortably in bed with no new complaints at this time. Patient is still having some abdominal pain and distension 2/2 ascites. Patient denies chest pain, SOB, nausea, vomiting, diarrhea, constipation, leg pain/swelling. Objective - Vital Signs/Intake and Output Vital Signs (last 24 hours): Temp Pulse Resp BP Pulse Ox 98.4 F 92 H 20 109/77 95 09/02/17 08:25 09/02/17 08:25 09/02/17 08:25 09/02/17 08:25 09/02/17 08:25 - Medications Medications: Current Medications Cholestyramine Resin (Questran) 4 gm PO TIDPC [facility] Last Admin: 09/02/17 08:35 Dose: 4 gm Pantoprazole Sodium (Protonix Ec Tab) 40 mg PO DAILY [facility] Last Admin: 09/02/17 10:41 Dose: 40 mg Rifaximin (Xifaxan) 550 mg PO BID [facility] Last Admin: 09/02/17 10:41 Dose: 550 mg Sodium Bicarbonate (Sodium Bicarbonate Tab) 1,300 mg PO TID [facility] Last Admin: 09/02/17 10:41 Dose: 1,300 mg Sodium Chloride (Sodium Chloride Tab) 1 gm PO BID [facility] Last Admin: 09/02/17 10:41 Dose: 1 gm Spironolactone (Aldactone) 50 mg PO BID [facility] Last Admin: 09/02/17 10:41 Dose: 50 mg - Labs Labs: 08/31/17 17:26 08/31/17 17:26 PT 17.9 SECONDS (9.7-12.2) H 08/16/17 07:11 INR 1.6 08/16/17 07:11 APTT 34 SECONDS (21-34) 07/18/17 13:52 - Additional Findings Additional findings: - Constitutional Appears: Non-toxic, No Acute Distress - Head Exam Head Exam: NORMAL INSPECTION - Eye Exam Eye Exam: EOMI, PERRL - ENT Exam ENT Exam: Mucous Membranes Moist - Respiratory Exam Respiratory Exam: Clear to Ausculation Bilateral, NORMAL BREATHING PATTERN - Cardiovascular Exam Cardiovascular Exam: RRR, +S1, +S2 - GI/Abdominal Exam GI & Abdominal Exam: Distended (ascites), Soft, Tenderness (LUQ, mild), Normal Bowel Sounds. absent: Guarding - Extremities Exam Extremities Exam: Normal Inspection. absent: Calf Tenderness, Pedal Edema - Neurological Exam Neurological Exam: Alert, Awake - Psychiatric Exam Psychiatric exam: Normal Affect, Normal Mood - Skin Skin Exam: Dry, Intact, Warm Assessment and Plan - Assessment and Plan (Free Text) Plan: Disposition: Patient with overall poor prognosis. Cirrhosis with ascites, severe pancreatic insufficiency. Patient now DNR/DNI after palliative care discussion. POLST form in the chart. We have moved to attempt to acquire a supply of pancreatic enzymes from [employer] program for the patient. One month supply of medications was secured for the patient (Creon pancreatic enzymes, cholestyramine, lactulose, and Rifaximin[though only 15 day supply was available from the pharmacy]). Patient's friend Mazin Peng [phone] was at bedside on 08/24/17. The friend was updated on the situation, and he will work with the other friend Luis to secure a ticket to [facility] for the patient. We have re-consulted palliative care for hospice discussion - Brionna saw again on 09/01 and recommends going to stay with the friend he talks about since he has little family support and going back to [place] if he so desires. As of now, patient's friend is setting up a place for him to stay which should be ready this weekend. Patient can leave once this is set up and friend can come pick him up. Ascites and hepatic encephalopathy GI (Dr South) consulted, help appreciated CT abd/pelvis shows small to moderate ascites Paracentesis * 07/19/17: 2.1 L straw colored fluid removed * peritoneal fluid no growth, negative for malignant cells * Fluid WBC: 147, RBC: 216, neut: 41, lymph: 43, monocyte/macrophage: 15 * 08/04/17: 4 Liters removed - Replenished with albumin 12.5 gm x2 doses * 08/16/17: 2.5 liters of straw colored fluid * 09/02 therpeutic paracentesis - 5.5 liters of straw colored fluid taken off, albumin given Ammonia level on 08/09: 57 * Xifaximin 550 mg PO BID restarted * Lactulose 10 mg PO BID (nursing communication to hold if more than 2 consecutive loose stool episodes) Fever - resolved Afebrile since 08/14 Unlikely SBP - peritoneal WBCs too low for Dx 08/18: Discontinued Rocephin 1 gm daily (empirically started on 08/15/17) Colitis and Diarrhea No leukocytosis, afebrile giardia negative, stool ova and parasite negative, stool culture negative blood culture negative negative HIV and hep panel fecal fat study: normal c dif neg x 3 Meds: Completed course of Cipro 400 IV daily and Flagyl 500 IV Q8 Desitin cream ordered for gluteal and sacral excoriations due to the uncontrolled loose stools. Excoriations improved. Imaging: CT abd/pelvis with IV contrast 07/17: Significant bowel wall thickening involving the colon, appearance most consistent with acute colitis, cannot exclude underlying neoplasm. Small to moderate ascites. Fatty infiltration of the liver. Heterogeneous appearance to hepatic parenchyma. Some of appearance may be due to transient hepatic attenuation differences, concern for underlying lesion. Endoscopy (07/28): small hiatal hernia, patchy mild inflammation in gastric antrum biopsies, scalloped mucosa found in duodenum, suspicious for celiac disease- biopsied * Biopsy: chemical gastritis, otherwise benign Colonoscopy (07/28): internal hemorrhoids, mucosal nodule in the sigmoid colon, in transverse colon and in the ascending colon- biopsied * Biopsy: ascending colon edema, transverse colon and @20cm with edema and vascular ectasia Per Dr. South, he suspects pancreatic insufficiency as possible cause due to low stool pancreatic elastase and ordered an MRCP which was unable to be obtained due to patient restlessness Dr. South consulted Dr. Guerrero (help appreciated) for evaluation of possible chronic pancreatitis and possible EUS work up * Per Dr. Guerrero, pursue EUS as an outpatient for definitive diagnosis of chronic pancreatitis * Pancreatic enzymes were started with meals and Aldactone increased to 50 mg PO BID by GI team * Pan[place] [address] units TID with meals Alcohol abuse/alcohol intoxication/alcohol withdrawal Elevated serum alcohol on admission 292 Seizure and aspiration precautions Ativan 1mg q4h prn for agitation Thiamine 100 mg daily Folic acid 1 mg daily Psych consult, Dr. Man, help appreciated. Detox completed. Hyponatremia Nephrology consult Dr. Middleton, help appreciated Unclear if hyponatremia is due to cirrhosis or hypovolemia from diuretics. Patient previously on trial of NS 100 cc/hr without improvement Hypertonic saline solution on 08/09/17--corrected sodium to 130 Per nephrology to hold diuretics, continue aldactone as allowed by BP Per nephro, NaCL tab 1 gm BID and sodium bicarb supplement 1300 mg PO BID started on 08/15/17 One dose of Tolvaptan given on 08/23/17 by nephro. Patient intermittently refusing lab work - last sodium 131 on 08/28 Hypokalemia and Hypomagnesemia Monitor and replete, though patient will intermittently refuse labs Anemia Stable patient transfused 1 u PRBC on 07/20/17 Heme/onc consulted, Dr. Tran help appreciated stool occult blood negative Likely due from bone marrow suppression due to alcohol Tobacco use disorder Nicotine patch S/P Urinary Retention monitor urine output Elevated INR Vitamin K 5mg po daily for a total of 5 days (day 1 on 07/26, last dose to be given on 07/30) Last 1.6 on 08/16 Prophylactic Measure/supportive care Pepcid 20mg po BID SCDs, Lovenox 40mg sc daily Simethicone 80mg po BID PT/OT Imodium prn <Ruth Huitron - Last Filed: 09/02/17 14:50> Objective - Vital Signs/Intake and Output Vital Signs (last 24 hours): Temp Pulse Resp BP Pulse Ox 97.7 F 99 H 20 106/71 96 09/02/17 12:50 09/02/17 12:50 09/02/17 12:50 09/02/17 12:50 09/02/17 12:50 - Medications Medications: Current Medications Albumin Human (Albumin Human 25% (12.5 Gm/50 Ml)) 12.5 gm IV Q30M [facility] Stop: 09/02/17 15:00 Last Admin: 09/02/17 14:05 Dose: 12.5 gm Cholestyramine Resin (Questran) 4 gm PO TIDPC [facility] Last Admin: 09/02/17 13:35 Dose: 4 gm Pantoprazole Sodium (Protonix Ec Tab) 40 mg PO DAILY [facility] Last Admin: 09/02/17 10:41 Dose: 40 mg Rifaximin (Xifaxan) 550 mg PO BID [facility] Last Admin: 09/02/17 10:41 Dose: 550 mg Sodium Bicarbonate (Sodium Bicarbonate Tab) 1,300 mg PO TID [facility] Last Admin: 09/02/17 13:35 Dose: 1,300 mg Sodium Chloride (Sodium Chloride Tab) 1 gm PO BID [facility] Last Admin: 09/02/17 10:41 Dose: 1 gm Spironolactone (Aldactone) 50 mg PO BID [facility] Last Admin: 09/02/17 10:41 Dose: 50 mg - Labs Labs: 08/31/17 17:26 08/31/17 17:26 PT 17.9 SECONDS (9.7-12.2) H 08/16/17 07:11 INR 1.6 08/16/17 07:11 APTT 34 SECONDS (21-34) 07/18/17 13:52 Attending/Attestation - Attestation I have personally seen and examined this patient.: Yes I have fully participated in the care of the patient.: Yes I have reviewed all pertinent clinical information, including history, physical exam and plan: Yes Notes (Text): Patient looks good and he happy that he had paracentesis and 5.5liters fluid removed No complain We will order albumin d/w the resident I agree with the residents documentation of the assessment and the plan Patient ambulate with the staff this morning 09/02/17 14:49
--- NOTE | 2017-09-02 11:54 | PCM.SURG1 ---
Surgeon's Initial Post Op Note - Surgeon's Notes Surgeon: Luis Carlos Doshi MD Shoe Shiner: NONE Type of Anesthesia: Local Pre-Operative Diagnosis: Ascites Operative Findings: US showed large amount of ascites Post-Operative Diagnosis: Ascites Operation Performed: US guided paracentesis Specimen/Specimens Removed: 5.5 liters of straw colored fluid Estimated Blood Loss: EBL {In ML}: 0 Blood Products Given: N/A Drains Used: No Drains Post-Op Condition: Fair Date of Surgery/Procedure: 09/02/17 Time of Surgery/Procedure: 11:50
[2017-09-02] MEDS: Albumin Human 25% (12.5 gm/50 ml) IV SCH ×3 (13:35→14:49)
--- NOTE | 2017-09-02 13:49 | US ---
Date of Procedure: 09/02/2017 PROCEDURE: Ultrasound-guided paracentesis, CPT 45660 Medications: 7 cc 1% Lidocaine HISTORY: Ascites, abdominal pain, cirrhosis TECHNIQUE: Following informed consent , the patient was placed supine on the stretcher and the site was marked. A limited abdominal ultrasound was performed that showed a large amount of intra-abdominal fluid. Procedural time out was called and the Pt's abdomen was marked and prepped and draped in the usual sterile fashion. Ultrasound-guided large volume paracentesis performed. A total of 5.5 liters of straw colored fluid was removed without complication. IMPRESSION: Ultrasound-guided large volume paracentesis.
[2017-09-03] MEDS: Cholestyramine 4 gm/Pkt UD PO SCH ×3 (09:33→18:50)
[2017-09-03] MEDS: LIPASE/PROTEASE/AMYLASE 21,000 U ECC PO SCH ×3 (09:33→18:00)
[2017-09-03] MEDS: Pantoprazole 40 mg EC Tab PO SCH (09:33)
--- NOTE | 2017-09-03 10:00 | CP.PCM.PN ---
<Neetu Aguirre - Last Filed: 09/03/17 09:57> Subjective - Date & Time of Evaluation Date of Evaluation: 09/03/17 Time of Evaluation: 09:57 - Subjective Subjective: Patient seen and examined at bedside. No acute events overnight. Patient resting comfortably in bed with no new complaints at this time. He denies chest pain, SOB, nausea, vomiting, dizziness, leg pain/swelling. Objective - Vital Signs/Intake and Output Vital Signs (last 24 hours): Temp Pulse Resp BP Pulse Ox 98.8 F 78 20 101/66 100 09/03/17 07:20 09/03/17 07:20 09/03/17 07:20 09/03/17 07:20 09/03/17 07:20 - Medications Medications: Current Medications Cholestyramine Resin (Questran) 4 gm PO TIDPC [facility] Last Admin: 09/03/17 09:33 Dose: 4 gm Pantoprazole Sodium (Protonix Ec Tab) 40 mg PO DAILY [facility] Last Admin: 09/03/17 09:33 Dose: 40 mg Rifaximin (Xifaxan) 550 mg PO BID [facility] Last Admin: 09/03/17 09:34 Dose: 550 mg Sodium Bicarbonate (Sodium Bicarbonate Tab) 1,300 mg PO TID [facility] Last Admin: 09/03/17 09:33 Dose: 1,300 mg Sodium Chloride (Sodium Chloride Tab) 1 gm PO BID [facility] Last Admin: 09/03/17 09:34 Dose: 1 gm Spironolactone (Aldactone) 50 mg PO BID [facility] Last Admin: 09/03/17 09:34 Dose: 50 mg - Labs Labs: 08/31/17 17:26 08/31/17 17:26 PT 17.9 SECONDS (9.7-12.2) H 08/16/17 07:11 INR 1.6 08/16/17 07:11 APTT 34 SECONDS (21-34) 07/18/17 13:52 - Additional Findings Additional findings: - Constitutional Appears: Non-toxic, No Acute Distress - Head Exam Head Exam: NORMAL INSPECTION - Eye Exam Eye Exam: EOMI, PERRL - ENT Exam ENT Exam: Mucous Membranes Moist - Respiratory Exam Respiratory Exam: Clear to Ausculation Bilateral, NORMAL BREATHING PATTERN - Cardiovascular Exam Cardiovascular Exam: RRR, +S1, +S2 - GI/Abdominal Exam GI & Abdominal Exam: Distended (ascites), Soft, Tenderness (LUQ, mild), Normal Bowel Sounds. absent: Guarding - Extremities Exam Extremities Exam: Normal Inspection. absent: Calf Tenderness, Pedal Edema - Neurological Exam Neurological Exam: Alert, Awake - Psychiatric Exam Psychiatric exam: Normal Affect, Normal Mood - Skin Skin Exam: Dry, Intact, Warm Assessment and Plan - Assessment and Plan (Free Text) Plan: Disposition: Patient with overall poor prognosis. Cirrhosis with ascites, severe pancreatic insufficiency. Patient now DNR/DNI after palliative care discussion. POLST form in the chart. We have moved to attempt to acquire a supply of pancreatic enzymes from [employer] program for the patient. One month supply of medications was secured for the patient (Creon pancreatic enzymes, cholestyramine, lactulose, and Rifaximin[though only 15 day supply was available from the pharmacy]). Patient's friend Mazin Peng [phone] was at bedside on 08/24/17. The friend was updated on the situation, and he will work with the other friend Luis to secure a ticket to [facility] for the patient. We have re-consulted palliative care for hospice discussion - Brionna saw again on 09/01 and recommends going to stay with the friend he talks about since he has little family support and going back to [place] if he so desires. As of now, patient's friend is setting up a place for him to stay which should be ready this weekend. Patient can leave once this is set up and friend can come pick him up. Ascites and hepatic encephalopathy GI (Dr South) consulted, help appreciated CT abd/pelvis shows small to moderate ascites Paracentesis * 07/19/17: 2.1 L straw colored fluid removed * peritoneal fluid no growth, negative for malignant cells * Fluid WBC: 147, RBC: 216, neut: 41, lymph: 43, monocyte/macrophage: 15 * 08/04/17: 4 Liters removed - Replenished with albumin 12.5 gm x2 doses * 08/16/17: 2.5 liters of straw colored fluid * 09/02 therpeutic paracentesis - 5.5 liters of straw colored fluid taken off, albumin given Ammonia level on 08/09: 57 * Xifaximin 550 mg PO BID restarted * Lactulose 10 mg PO BID (nursing communication to hold if more than 2 consecutive loose stool episodes) Fever - resolved Afebrile since 08/14 Unlikely SBP - peritoneal WBCs too low for Dx 08/18: Discontinued Rocephin 1 gm daily (empirically started on 08/15/17) Colitis and Diarrhea No leukocytosis, afebrile giardia negative, stool ova and parasite negative, stool culture negative blood culture negative negative HIV and hep panel fecal fat study: normal c dif neg x 3 Meds: Completed course of Cipro 400 IV daily and Flagyl 500 IV Q8 Desitin cream ordered for gluteal and sacral excoriations due to the uncontrolled loose stools. Excoriations improved. Imaging: CT abd/pelvis with IV contrast 07/17: Significant bowel wall thickening involving the colon, appearance most consistent with acute colitis, cannot exclude underlying neoplasm. Small to moderate ascites. Fatty infiltration of the liver. Heterogeneous appearance to hepatic parenchyma. Some of appearance may be due to transient hepatic attenuation differences, concern for underlying lesion. Endoscopy (07/28): small hiatal hernia, patchy mild inflammation in gastric antrum biopsies, scalloped mucosa found in duodenum, suspicious for celiac disease- biopsied * Biopsy: chemical gastritis, otherwise benign Colonoscopy (07/28): internal hemorrhoids, mucosal nodule in the sigmoid colon, in transverse colon and in the ascending colon- biopsied * Biopsy: ascending colon edema, transverse colon and @20cm with edema and vascular ectasia Per Dr. South, he suspects pancreatic insufficiency as possible cause due to low stool pancreatic elastase and ordered an MRCP which was unable to be obtained due to patient restlessness Dr. South consulted Dr. Guerrero (help appreciated) for evaluation of possible chronic pancreatitis and possible EUS work up * Per Dr. Guerrero, pursue EUS as an outpatient for definitive diagnosis of chronic pancreatitis * Pancreatic enzymes were started with meals and Aldactone increased to 50 mg PO BID by GI team * [place] [address] units TID with meals Alcohol abuse/alcohol intoxication/alcohol withdrawal Elevated serum alcohol on admission 292 Seizure and aspiration precautions Ativan 1mg q4h prn for agitation Thiamine 100 mg daily Folic acid 1 mg daily Psych consult, Dr. Man, help appreciated. Detox completed. Hyponatremia Nephrology consult Dr. Middleton, help appreciated Unclear if hyponatremia is due to cirrhosis or hypovolemia from diuretics. Patient previously on trial of NS 100 cc/hr without improvement Hypertonic saline solution on 08/09/17--corrected sodium to 130 Per nephrology to hold diuretics, continue aldactone as allowed by BP Per nephro, NaCL tab 1 gm BID and sodium bicarb supplement 1300 mg PO BID started on 08/15/17 One dose of Tolvaptan given on 08/23/17 by nephro. Patient intermittently refusing lab work - last sodium 131 on 08/28 Hypokalemia and Hypomagnesemia Monitor and replete, though patient will intermittently refuse labs Anemia Stable patient transfused 1 u PRBC on 07/20/17 Heme/onc consulted, Dr. Tran help appreciated stool occult blood negative Likely due from bone marrow suppression due to alcohol Tobacco use disorder Nicotine patch S/P Urinary Retention monitor urine output Elevated INR Vitamin K 5mg po daily for a total of 5 days (day 1 on 07/26, last dose to be given on 07/30) Last 1.6 on 08/16 Prophylactic Measure/supportive care Pepcid 20mg po BID SCDs, Lovenox 40mg sc daily Simethicone 80mg po BID PT/OT Imodium prn <Ruth Huitron - Last Filed: 09/03/17 12:48> Objective - Vital Signs/Intake and Output Vital Signs (last 24 hours): Temp Pulse Resp BP Pulse Ox 98.8 F 78 20 101/66 100 09/03/17 07:20 09/03/17 07:20 09/03/17 07:20 09/03/17 07:20 09/03/17 07:20 - Medications Medications: Current Medications Cholestyramine Resin (Questran) 4 gm PO TIDPC [facility] Last Admin: 09/03/17 09:33 Dose: 4 gm Pantoprazole Sodium (Protonix Ec Tab) 40 mg PO DAILY [facility] Last Admin: 09/03/17 09:33 Dose: 40 mg Rifaximin (Xifaxan) 550 mg PO BID [facility] Last Admin: 09/03/17 09:34 Dose: 550 mg Sodium Bicarbonate (Sodium Bicarbonate Tab) 1,300 mg PO TID [facility] Last Admin: 09/03/17 09:33 Dose: 1,300 mg Sodium Chloride (Sodium Chloride Tab) 1 gm PO BID [facility] Last Admin: 09/03/17 09:34 Dose: 1 gm Spironolactone (Aldactone) 50 mg PO BID [facility] Last Admin: 09/03/17 09:34 Dose: 50 mg - Labs Labs: 08/31/17 17:26 08/31/17 17:26 PT 17.9 SECONDS (9.7-12.2) H 08/16/17 07:11 INR 1.6 08/16/17 07:11 APTT 34 SECONDS (21-34) 07/18/17 13:52 Attending/Attestation - Attestation I have personally seen and examined this patient.: No I have fully participated in the care of the patient.: Yes I have reviewed all pertinent clinical information, including history, physical exam and plan: Yes Notes (Text): not seen today 09/03/17 12:47
[2017-09-04] MEDS: LIPASE/PROTEASE/AMYLASE 21,000 U ECC PO SCH ×3 (08:44→18:00)
[2017-09-04] MEDS: Cholestyramine 4 gm/Pkt UD PO SCH ×3 (08:44→18:27)
--- NOTE | 2017-09-04 09:45 | CP.PCM.PN ---
<Neetu Aguirre - Last Filed: 09/04/17 09:42> Subjective - Date & Time of Evaluation Date of Evaluation: 09/04/17 Time of Evaluation: 09:42 - Subjective Subjective: Patient seen and examined at bedside. No acute events overnight. Patient resting comfortably in bed with no new complaints at this time. Patient is not having diarrhea today and feels better today. He called his friend who said he would be coming to pick him up either today or tomorrow. He denies chest pain, SOB, nausea, vomiting, dizziness, leg pain/swelling. Objective - Vital Signs/Intake and Output Vital Signs (last 24 hours): Temp Pulse Resp BP Pulse Ox 98.8 F 76 18 100/64 99 09/04/17 08:00 09/04/17 08:00 09/04/17 08:00 09/04/17 08:00 09/04/17 08:00 Intake and Output: 09/04/17 09/04/17 06:59 18:59 Intake Total 250 Output Total 100 Balance 150 - Medications Medications: Current Medications Cholestyramine Resin (Questran) 4 gm PO TIDPC [facility] Last Admin: 09/04/17 08:44 Dose: 4 gm Pantoprazole Sodium (Protonix Ec Tab) 40 mg PO DAILY [facility] Last Admin: 09/03/17 09:33 Dose: 40 mg Rifaximin (Xifaxan) 550 mg PO BID [facility] Last Admin: 09/03/17 18:49 Dose: 550 mg Sodium Bicarbonate (Sodium Bicarbonate Tab) 1,300 mg PO TID [facility] Last Admin: 09/03/17 18:48 Dose: 1,300 mg Sodium Chloride (Sodium Chloride Tab) 1 gm PO BID [facility] Last Admin: 09/03/17 18:49 Dose: 1 gm Spironolactone (Aldactone) 50 mg PO BID [facility] Last Admin: 09/03/17 18:56 Dose: 50 mg - Labs Labs: 08/31/17 17:26 08/31/17 17:26 PT 17.9 SECONDS (9.7-12.2) H 08/16/17 07:11 INR 1.6 08/16/17 07:11 APTT 34 SECONDS (21-34) 07/18/17 13:52 - Additional Findings Additional findings: - Constitutional Appears: Non-toxic, No Acute Distress - Head Exam Head Exam: NORMAL INSPECTION - Eye Exam Eye Exam: EOMI, PERRL - ENT Exam ENT Exam: Mucous Membranes Moist - Respiratory Exam Respiratory Exam: Clear to Ausculation Bilateral, NORMAL BREATHING PATTERN - Cardiovascular Exam Cardiovascular Exam: RRR, +S1, +S2 - GI/Abdominal Exam GI & Abdominal Exam: Soft, Tenderness (LUQ, mild), Normal Bowel Sounds. absent : Guarding, Distended - Extremities Exam Extremities Exam: Normal Inspection. absent: Calf Tenderness, Pedal Edema - Neurological Exam Neurological Exam: Alert, Awake - Psychiatric Exam Psychiatric exam: Normal Affect, Normal Mood - Skin Skin Exam: Dry, Intact, Warm Assessment and Plan - Assessment and Plan (Free Text) Plan: Disposition: Patient with overall poor prognosis. Cirrhosis with ascites, severe pancreatic insufficiency. Patient now DNR/DNI after palliative care discussion. POLST form in the chart. We have moved to attempt to acquire a supply of pancreatic enzymes from [employer] program for the patient. One month supply of medications was secured for the patient (Creon pancreatic enzymes, cholestyramine, lactulose, and Rifaximin[though only 15 day supply was available from the pharmacy]). Patient's friend Mazin Peng [phone] was at bedside on 08/24/17. The friend was updated on the situation, and he will work with the other friend Luis to secure a ticket to [place] for the patient. We have re-consulted palliative care for hospice discussion - Brionna saw again on 09/01 and recommends going to stay with the friend he talks about since he has little family support and going back to [place] if he so desires. As of now, patient's friend is setting up a place for him to stay which should be ready today or tomorrow. Patient can leave once this is set up and friend can come pick him up. Ascites and hepatic encephalopathy GI (Dr South) consulted, help appreciated CT abd/pelvis shows small to moderate ascites Paracentesis * 07/19/17: 2.1 L straw colored fluid removed * peritoneal fluid no growth, negative for malignant cells * Fluid WBC: 147, RBC: 216, neut: 41, lymph: 43, monocyte/macrophage: 15 * 08/04/17: 4 Liters removed - Replenished with albumin 12.5 gm x2 doses * 08/16/17: 2.5 liters of straw colored fluid * 09/02 therpeutic paracentesis - 5.5 liters of straw colored fluid taken off, albumin given Ammonia level on 08/09: 57 * Xifaximin 550 mg PO BID restarted * Lactulose 10 mg PO BID (nursing communication to hold if more than 2 consecutive loose stool episodes) Fever - resolved Afebrile since 08/14 Unlikely SBP - peritoneal WBCs too low for Dx 08/18: Discontinued Rocephin 1 gm daily (empirically started on 08/15/17) Colitis and Diarrhea No leukocytosis, afebrile giardia negative, stool ova and parasite negative, stool culture negative blood culture negative negative HIV and hep panel fecal fat study: normal c dif neg x 3 Meds: Completed course of Cipro 400 IV daily and Flagyl 500 IV Q8 Desitin cream ordered for gluteal and sacral excoriations due to the uncontrolled loose stools. Excoriations improved. Imaging: CT abd/pelvis with IV contrast 07/17: Significant bowel wall thickening involving the colon, appearance most consistent with acute colitis, cannot exclude underlying neoplasm. Small to moderate ascites. Fatty infiltration of the liver. Heterogeneous appearance to hepatic parenchyma. Some of appearance may be due to transient hepatic attenuation differences, concern for underlying lesion. Endoscopy (07/28): small hiatal hernia, patchy mild inflammation in gastric antrum biopsies, scalloped mucosa found in duodenum, suspicious for celiac disease- biopsied * Biopsy: chemical gastritis, otherwise benign Colonoscopy (07/28): internal hemorrhoids, mucosal nodule in the sigmoid colon, in transverse colon and in the ascending colon- biopsied * Biopsy: ascending colon edema, transverse colon and @20cm with edema and vascular ectasia Per Dr. South, he suspects pancreatic insufficiency as possible cause due to low stool pancreatic elastase and ordered an MRCP which was unable to be obtained due to patient restlessness Dr. South consulted Dr. Guerrero (help appreciated) for evaluation of possible chronic pancreatitis and possible EUS work up * Per Dr. Guerrero, pursue EUS as an outpatient for definitive diagnosis of chronic pancreatitis * Pancreatic enzymes were started with meals and Aldactone increased to 50 mg PO BID by GI team * [place] [address] units TID with meals Alcohol abuse/alcohol intoxication/alcohol withdrawal Elevated serum alcohol on admission 292 Seizure and aspiration precautions Ativan 1mg q4h prn for agitation Thiamine 100 mg daily Folic acid 1 mg daily Psych consult, Dr. Man, help appreciated. Detox completed. Hyponatremia Nephrology consult Dr. Middleton, help appreciated Unclear if hyponatremia is due to cirrhosis or hypovolemia from diuretics. Patient previously on trial of NS 100 cc/hr without improvement Hypertonic saline solution on 08/09/17--corrected sodium to 130 Per nephrology to hold diuretics, continue aldactone as allowed by BP Per nephro, NaCL tab 1 gm BID and sodium bicarb supplement 1300 mg PO BID started on 08/15/17 One dose of Tolvaptan given on 08/23/17 by nephro. Patient intermittently refusing lab work - last sodium 131 on 08/28 Hypokalemia and Hypomagnesemia Monitor and replete, though patient will intermittently refuse labs Anemia Stable patient transfused 1 u PRBC on 07/20/17 Heme/onc consulted, Dr. Tran help appreciated stool occult blood negative Likely due from bone marrow suppression due to alcohol Tobacco use disorder Nicotine patch S/P Urinary Retention monitor urine output Elevated INR Vitamin K 5mg po daily for a total of 5 days (day 1 on 07/26, last dose to be given on 07/30) Last 1.6 on 08/16 Prophylactic Measure/supportive care Pepcid 20mg po BID SCDs, Lovenox 40mg sc daily Simethicone 80mg po BID PT/OT Imodium prn <Ruth Huitron - Last Filed: 09/04/17 11:46> Objective - Vital Signs/Intake and Output Vital Signs (last 24 hours): Temp Pulse Resp BP Pulse Ox 98.8 F 76 18 100/64 99 09/04/17 08:00 09/04/17 08:00 09/04/17 08:00 09/04/17 08:00 09/04/17 08:00 Intake and Output: 09/04/17 09/04/17 06:59 18:59 Intake Total 250 Output Total 100 Balance 150 - Medications Medications: Current Medications Cholestyramine Resin (Questran) 4 gm PO TIDPC [facility] Last Admin: 09/04/17 08:44 Dose: 4 gm Pantoprazole Sodium (Protonix Ec Tab) 40 mg PO DAILY [facility] Last Admin: 09/04/17 10:15 Dose: 40 mg Rifaximin (Xifaxan) 550 mg PO BID [facility] Last Admin: 09/04/17 10:15 Dose: 550 mg Sodium Bicarbonate (Sodium Bicarbonate Tab) 1,300 mg PO TID [facility] Last Admin: 09/04/17 10:15 Dose: 1,300 mg Sodium Chloride (Sodium Chloride Tab) 1 gm PO BID [facility] Last Admin: 09/04/17 10:15 Dose: 1 gm Spironolactone (Aldactone) 50 mg PO BID [facility] Last Admin: 09/04/17 10:15 Dose: 50 mg - Labs Labs: 08/31/17 17:26 08/31/17 17:26 PT 17.9 SECONDS (9.7-12.2) H 08/16/17 07:11 INR 1.6 08/16/17 07:11 APTT 34 SECONDS (21-34) 07/18/17 13:52 Attending/Attestation - Attestation I have personally seen and examined this patient.: Yes I have fully participated in the care of the patient.: Yes I have reviewed all pertinent clinical information, including history, physical exam and plan: Yes Notes (Text): Seen and examined looks better. feels good. wants to be discharged. Formed stool. Patient states that his friend is planning to get him today or tomorrow. Spoke to his friend Luis . He arranged a place for him. He will pick him tomorrow afternoon. Possible discharge tomorrow Patient 's medications ready. Friend is planning to send him to [facility] .patient wants to go to [facility] where his sons live. d/w The resident. I agree with the documentation of the assessment and the plan
[2017-09-04] MEDS: Pantoprazole 40 mg EC Tab PO SCH (10:15)
[2017-09-04 16:31] VITALS: RESP 20
[2017-09-05 05:00] VITALS: PULSE 80; TEMP 98.2
[2017-09-05 08:19] VITALS: BP 102/65; O2SAT 100
[2017-09-05] MEDS: LIPASE/PROTEASE/AMYLASE 21,000 U ECC PO SCH ×2 (08:41→13:19)
[2017-09-05] MEDS: Cholestyramine 4 gm/Pkt UD PO SCH ×2 (08:41→13:19)
[2017-09-05] MEDS: Pantoprazole 40 mg EC Tab PO SCH (10:43)
--- NOTE | 2017-09-05 15:26 | CP.PCM.DIS ---
<Neetu Aguirre - Last Filed: 09/05/17 15:02> Provider - Provider Date of Admission: 07/18/17 00:30 Attending physician: Js Evans DO Consults: Dr. Tico Middleton Time Spent in preparation of Discharge (in minutes): 35 Hospital Course - Lab Results Lab Results: Micro Results 07/25/17 18:27 Other: Please Indicate Mycobacterial Culture - Preliminary 08/15/17 Unknown Peritoneal Fluid Fungal Culture - Preliminary NO FUNGUS GROWTH IN 2 WEEKS. 08/13/17 14:10 Blood-Venous Blood Culture - Final NO GROWTH AFTER 5 DAYS 08/13/17 14:10 Blood-Venous Gram Stain - Final TEST NOT PERFORMED 08/13/17 14:14 Blood-Venous Blood Culture - Final NO GROWTH AFTER 5 DAYS 08/13/17 14:14 Blood-Venous Gram Stain - Final TEST NOT PERFORMED 08/15/17 Unknown Peritoneal Fluid Anaerobic Culture - Final NO ANAEROBES ISOLATED. 07/21/17 23:00 Blood Blood Culture - Final NO GROWTH AFTER 5 DAYS 07/21/17 23:00 Blood Gram Stain - Final TEST NOT PERFORMED 07/21/17 23:00 Blood Blood Culture - Final NO GROWTH AFTER 5 DAYS 07/21/17 23:00 Blood Gram Stain - Final TEST NOT PERFORMED 07/18/17 16:00 Blood-Venous Blood Culture - Final NO GROWTH AFTER 5 DAYS 07/18/17 16:00 Blood-Venous Gram Stain - Final TEST NOT PERFORMED 07/21/17 23:30 Urine,Catheterized Urine Culture - Final No Growth (<1,000 CFU/ML) 07/19/17 12:03 Peritoneal Fluid Gram Stain - Final 07/19/17 12:03 Peritoneal Fluid Body Fluid Culture - Final No growth. 07/18/17 10:47 Blood-Venous Blood Culture - Final NO GROWTH AFTER 5 DAYS 07/18/17 10:47 Blood-Venous Gram Stain - Final TEST NOT PERFORMED 07/20/17 18:00 Urine,Torres Urine Culture - Final No Growth (<1,000 CFU/ML) 07/18/17 12:04 Stool Stool Culture - Final NO SALMONELLA, SHIGELLA OR CAMPYLOBACTER ISOLATED. 07/18/17 12:04 Stool Ova and Parasite Concentrate Exam - Final Most Recent Lab Values WBC 6.6 K/uL (4.8-10.8) 08/31/17 17:26 RBC 2.63 Mil/uL (4.40-5.90) L 08/31/17 17: Hgb 7.4 g/dL (12.0-18.0) L 08/31/17 17: Hct 22.4 % (35.0-51.0) L 08/31/17 17: MCV 85.1 fL (80.0-94.0) 08/31/17 17: MCH 28.3 pg (27.0-31.0) 08/31/17 17: MCHC 33.2 g/dL (33.0-37.0) 08/31/17 17: RDW 16.8 % (11.5-14.5) H 08/31/17 17: Plt Count 181 K/uL (130-400) 08/31/17 17: MPV 8.8 fL (7.2-11.7) 08/31/17 17: Neut % (Auto) 58.0 % (50.0-75.0) 08/31/17 17: Lymph % (Auto) 30.7 % (20.0-40.0) 08/31/17 17: [place] % (Auto) 9.1 % (0.0-10.0) 08/31/17 17: Eos % (Auto) 0.9 % (0.0-4.0) 08/31/17 17: Baso % (Auto) 1.3 % (0.0-2.0) 08/31/17 17: Neut # (Auto) 3.9 K/uL (1.8-7.0) 08/31/17 17: Lymph # (Auto) 2.0 K/uL (1.0-4.3) 08/31/17 17: [place] # (Auto) 0.6 K/uL (0.0-0.8) 08/31/17 17: Eos # (Auto) 0.1 K/uL (0.0-0.7) 08/31/17 17: Baso # (Auto) 0.1 K/uL (0.0-0.2) 08/31/17 17: Retic Count 2.9 % (0.5-1.5) H 07/18/17 13:55 PT 17.9 SECONDS (9.7-12.2) H 08/16/17 07:11 INR 1.6 08/16/17 07:11 APTT 34 SECONDS (21-34) 07/18/17 13:52 pO2 31 mm/Hg (30-55) 07/22/17 00:15 VBG pH 7.46 (7.32-7.43) H 07/22/17 00:15 VBG pCO2 31 mmHg (40-60) L 07/22/17 00:15 VBG HCO3 23.3 mmol/L 07/22/17 00:15 VBG Total CO2 23.0 mmol/L (22-28) 07/22/17 00:15 VBG O2 Sat (Calc) 63.3 % (40-65) 07/22/17 00:15 VBG Base Excess -0.9 mmol/L (0.0-2.0) L 07/22/17 00:15 Sodium 128 mmol/L (132-148) L 08/31/17 17:26 Potassium 3.7 mmol/L (3.6-5.2) 08/31/17 17:26 Chloride 98 mmol/L (98-107) 08/31/17 17:26 Carbon Dioxide 22 mmol/L (22-30) 08/31/17 17:26 Anion Gap 11 (10-20) 08/31/17 17:26 BUN 9 mg/dL (9-20) 08/31/17 17:26 Creatinine 0.6 mg/dL (0.8-1.5) L 08/31/17 17:26 Est GFR ( Amer) > 60 08/31/17 17:26 Est GFR (Non-Af Amer) > 60 08/31/17 17:26 POC Glucose (mg/dL) 123 mg/dL (65-110) H 08/24/17 11:26 Random Glucose 108 mg/dL (75-110) 08/31/17 17:26 Serum Osmolality 270 mosm/kg (272-300) L 08/06/17 22:58 Lactic Acid 1.9 mmol/L (0.7-2.1) 08/09/17 14:14 Calcium 7.6 mg/dl (8.6-10.4) L 08/31/17 17:26 Phosphorus 3.8 mg/dL (2.5-4.5) 08/12/17 11:16 Iron 110 ug/dL (49-181) 07/18/17 13:55 TIBC 152 ug/dL (250-450) L 07/18/17 13:55 % Saturation 73 (20-55) H 07/18/17 13:55 Magnesium 1.6 mg/dL (1.6-2.3) 08/31/17 17:26 Ferritin 238.0 ng/mL 07/18/17 13:52 Direct Bilirubin 3.7 mg/dL (0.0-0.4) H 07/21/17 06:56 Total Bilirubin 1.0 mg/dL (0.2-1.3) 08/31/17 17:26 AST 51 U/L (17-59) 08/31/17 17:26 ALT 24 U/L (21-72) 08/31/17 17:26 Alkaline Phosphatase 148 U/L (38-126) H 08/31/17 17:26 Ammonia 30 umol/L (9-33) D 08/12/17 11:16 Total Creatine Kinase < 20 U/L (55-170) L 08/01/17 00:16 CK-MB (Mass) 0.52 ng/mL (0.0-3.38) 08/01/17 00:16 Troponin I < 0.0120 ng/mL (0.00-0.120) 08/01/17 00:16 Total Protein 5.6 g/dL (6.3-8.3) L 08/31/17 17:26 Albumin 2.1 g/dL (3.5-5.0) L 08/31/17 17:26 Globulin 3.6 gm/dL (2.2-3.9) 08/31/17 17:26 Albumin/Globulin Ratio 0.6 (1.0-2.1) L 08/31/17 17:26 Lipase 123 U/L (23-300) 08/16/17 07:11 Vitamin B12 772 pg/mL (239-931) 07/18/17 13:52 Folate > 20.0 ng/mL 07/18/17 13:52 Procalcitonin 0.32 NG/ML (0.19-0.49) 07/22/17 00:36 Urine Color Yellow (YELLOW) 08/11/17 04:58 Urine Clarity Clear (Clear) 08/11/17 04:58 Urine pH 5.0 (5.0-8.0) 08/11/17 04:58 Ur Specific [place] 1.011 (1.003-1.030) 08/11/17 04:58 Urine Protein 2+ mg/dL (NEGATIVE) H 08/11/17 04:58 Urine Glucose (UA) Normal mg/dL (Normal) 08/11/17 04:58 Urine Ketones Negative mg/dL (NEGATIVE) 08/11/17 04:58 Urine Blood 2+ (NEGATIVE) H 08/11/17 04:58 Urine Nitrate Negative (NEGATIVE) 08/11/17 04:58 Urine Bilirubin Negative (NEGATIVE) 08/11/17 04:58 Urine Urobilinogen Normal mg/dL (0.2-1.0) 08/11/17 04:58 Ur Leukocyte Esterase Neg Farhana/uL (Negative) 08/11/17 04:58 Urine WBC (Auto) 9 /hpf (0-5) H 08/11/17 04:58 Urine RBC (Auto) 15 /hpf (0-3) H 08/11/17 04:58 Ur Squamous Epith Cells 1 /hpf (0-5) 08/11/17 04:58 Urine Bacteria Rare (<OCC) 08/11/17 04:58 Hyaline Casts 6-10 /lpf (0-2) H 08/11/17 04:58 Granular Casts (Auto) 5 /lpf (0-1) 07/22/17 00:33 Urine Yeast (Budding) Occ /hpf (NEGATIVE) H 08/11/17 04:58 Urine Osmolality 348 mosm/kg (300-1000) 08/11/17 06:05 Ur Random Sodium 131 mmol/L 08/11/17 21:51 Urine Chloride 101 mmol/L (32-290) 08/08/17 10:40 Fluid Source Peritoneal/ascites 08/15/17 15:26 Fluid Appearance Sl cloudy (CLEAR) 08/15/17 15:26 Fluid WBC 168.0 /mm3 (0.0-300.0) 08/15/17 15:26 Fluid RBC 518.0 /mm3 (0.0-0.0) H 08/15/17 15:26 Fluid Tot Cell Count 100 (0-0) H 08/15/17 15:26 Fluid Neutrophils 3.0 % (0-0) H 08/15/17 15:26 Fluid Lymphocytes 90.0 % (0-0) H 08/15/17 15:26 Fld Monocyte/Macrophag 7 % (0-0) H 08/15/17 15:26 Fluid Albumin 0.2 g/dL 08/15/17 15:26 Fluid Comment 08/15/17 15:26 Peritoneal Tot Protein <3.0 g/dL 07/19/17 11:29 Peritoneal Amylase <10 U/L 07/19/17 11:29 Peritoneal Triglycerid 50 mg/dL (<65) 07/19/17 11:29 Stool Fat, Qual See note 07/20/17 08:20 Stool Sodium 57.50 mEq/L 07/23/17 10:17 Stool Potassium 39 mEq/L 07/23/17 10:17 Stool Chloride 66 mEq/L 07/23/17 10:17 Stool Occult Blood Negative (NEGATIVE) 07/19/17 11:22 Stool Leukocytes, Qual Negative (NEGATIVE) 07/18/17 12:04 Stl Pancreat Elastase 1 52 mcg/g L 07/20/17 08:20 Alcohol, Quantitative 292 mg/dl (0-10) H 07/17/17 22:18 C. difficile Tox B Gene Not detected (Not Detected) 07/18/17 13:28 C. difficile Ag & Toxin Negative (NEGATIVE) 07/31/17 18:01 Giardia Antigen Not detected (Not Detected) 07/18/17 12:01 Hepatitis A IgM Ab Negative (NEGATIVE) 07/22/17 11:01 Hep Bs Antigen Negative (NEGATIVE) 07/22/17 11:01 Hep B Core IgM Ab Negative (NEGATIVE) 07/22/17 11:01 Hepatitis C Antibody Negative (NEGATIVE) 07/22/17 11:01 HIV 1&2 Antibody Screen Negative (NEGATIVE) 07/22/17 11:01 Blood Type O POSITIVE 07/29/17 09:11 Antibody Screen Negative 07/29/17 09:11 - Hospital Course Hospital Course: Upon admission: This is a 51 year old male with PMHx alcohol abuse who presents to the ED complaining of abdominal pain that began 1 week ago. Patient states that it is a sharp pain localized on the right side of the abdomen and radiates diffusely. It is constant and nothing seems to alleviate it. Patient complains of 8-10 bouts of diarrhea during this week as well. Denies fever, chills, nausea, vomiting, chest pain, dyspnea, dysuria. Hospital course: Patient was admitted for hepatic encephalopathy with cirrhosis/ascites, and colitis/diarrhea. Dr. Jacobson was consulted and suggested patient likely had severe pancreatic insufficiency as possible cause of diarrhea, so he consulted Dr. Guerrero who recommended EUS as an outpatient for definitive diagnosis. Pancreatic enzymes were started with meals and Aldactone increased to 50 mg PO BID by GI team. For hepatice encephalopathy, Xifaximin 550 mg PO BID restarted and Lactulose 10 mg PO BID started with nursing communication to hold if more than 2 consecutive loose stool episodes. Ammonia level was 57 on arrival but improved with meds. Giardia negative, stool ova and parasite negative, stool culture negative, blood culture negative, C. Diff negative x3, hepatitis panel negative, and HIV negative. Fecal fat study was within normal limits. Elevated serum alcohol on admission 292. Dr. Man consulted and detox completed. Patient was found to be febrile but SBP was ruled out with paracentesis x4 as described below: 07/19/17: 2.1 L straw colored fluid removed, peritoneal fluid showed no growth, negative for malignant cells; Fluid WBC: 147, RBC: 216, neut: 41, lymph: 43, monocyte/macrophage: 15 08/04/17: 4 Liters removed - Replenished with albumin 12.5 gm x2 doses 08/16/17: 2.5 liters of straw colored fluid 09/02: therpeutic paracentesis - 5.5 liters of straw colored fluid taken off, albumin given Patient completed courses of cipro, flagyl, and rocephin during stay. The following imaging was obtained during hospital stay: CT abd/pelvis with IV contrast 07/17: Significant bowel wall thickening involving the colon, appearance most consistent with acute colitis, cannot exclude underlying neoplasm. Small to moderate ascites. Fatty infiltration of the liver. Heterogeneous appearance to hepatic parenchyma. Some of appearance may be due to transient hepatic attenuation differences, concern for underlying lesion. Endoscopy (07/28): small hiatal hernia, patchy mild inflammation in gastric antrum biopsies, scalloped mucosa found in duodenum, suspicious for celiac disease- biopsied * Biopsy: chemical gastritis, otherwise benign Colonoscopy (07/28): internal hemorrhoids, mucosal nodule in the sigmoid colon, in transverse colon and in the ascending colon- biopsied * Biopsy: ascending colon edema, transverse colon and @20cm with edema and vascular ectasia Patient also found to be hyponatremic during stay and Dr. Middleton was consulted. Hypertonic saline solution on 08/09/17 corrected sodium to 130. Nephrology recommended holding diuretics and continuing aldactone. NaCL tab 1 gm BID and sodium bicarb supplement 1300 mg PO BID started on 08/15/17. Electrolytes were difficult to monitor because patient was intermittently refusing labs. Chronic anemia remained stable although patient needed [address] unit transf[address] on . Dr. Tran was consulted. Stool occult blood was negative. Anemia is likely due to bone marrow suppression from alcohol abuse. Upon discharge: One month supply of medications was secured for the patient (Creon pancreatic enzymes, cholestyramine, lactulose, and Rifaximin[though only 15 day supply was available from the pharmacy]). Patient was discharged with medications and instructions on how to take them. Please note that this is a summary of events for a long, detailed hospital stay. For more details, please see complete medical record. Discharge Exam - Head Exam Head Exam: ATRAUMATIC, NORMAL INSPECTION, NORMOCEPHALIC - Eye Exam Eye Exam: EOMI, PERRL - ENT Exam ENT Exam: Mucous Membranes Moist - Respiratory Exam Respiratory Exam: Clear to PA & Lateral, NORMAL BREATHING PATTERN, UNREMARKABLE - Cardiovascular Exam Cardiovascular Exam: RRR, +S1, +S2 - GI/Abdominal Exam GI & Abdominal Exam: Normal Bowel Sounds, Unremarkable - Extremities Exam Extremities exam: normal inspection - Neurological Exam Neurological exam: Alert, Oriented x3 - Psychiatric Exam Psychiatric exam: Normal Affect, Normal Mood - Skin Skin Exam: Dry, Warm Discharge Plan - Discharge Medications Prescriptions: Cholestyramine [Questran] 4 gm PO TIDPC #90 packet Lactulose [Enulose] 10 gm PO BID #60 udc Lipase/Protease/Amylase [Denis Silva 36,000 Units Capsule] 2 cap PO TIDAC #180 capsule. rifAXIMin [Xifaxan] 550 mg PO BID #60 tab Sodium Bicarbonate Tab 1,300 mg PO TID #90 tab Sodium Chloride [Sodium Chloride Tab] 1 gm PO BID #60 tab Spironolactone [Aldactone] 50 mg PO BID #60 tab - Follow Up Plan Condition: FAIR Disposition: HOME/ ROUTINE Instructions: Cirrhosis, Hyponatremia (DC), Cholestyramine Resin, Lactulose, Pancrelipase, Rifaximin, Sodium Bicarbonate, Sodium Chloride, Spironolactone, Acute Liver Failure (DC) Additional Instructions: Patient is stable for discharge. Please follow up with Dr Guerrero, gastroenterology, for a test called EUS. Prescriptions have been provided, please take as directed. For any further issues or if symptoms occur or worsen please return to emergency room. Referrals: [facility] at [facility] [Outside] Frantz Guerrero MD [Staff Provider] - <Js Evans - Last Filed: 09/05/17 15:34> Provider - Provider Date of Admission: 07/18/17 00:30 Attending physician: Js Evans DO Hospital Course - Lab Results Lab Results: Micro Results 07/25/17 18:27 Other: Please Indicate Mycobacterial Culture - Preliminary 08/15/17 Unknown Peritoneal Fluid Fungal Culture - Preliminary NO FUNGUS GROWTH IN 2 WEEKS. 08/13/17 14:10 Blood-Venous Blood Culture - Final NO GROWTH AFTER 5 DAYS 08/13/17 14:10 Blood-Venous Gram Stain - Final TEST NOT PERFORMED 08/13/17 14:14 Blood-Venous Blood Culture - Final NO GROWTH AFTER 5 DAYS 08/13/17 14:14 Blood-Venous Gram Stain - Final TEST NOT PERFORMED 08/15/17 Unknown Peritoneal Fluid Anaerobic Culture - Final NO ANAEROBES ISOLATED. 07/21/17 23:00 Blood Blood Culture - Final NO GROWTH AFTER 5 DAYS 07/21/17 23:00 Blood Gram Stain - Final TEST NOT PERFORMED 07/21/17 23:00 Blood Blood Culture - Final NO GROWTH AFTER 5 DAYS 07/21/17 23:00 Blood Gram Stain - Final TEST NOT PERFORMED 07/18/17 16:00 Blood-Venous Blood Culture - Final NO GROWTH AFTER 5 DAYS 07/18/17 16:00 Blood-Venous Gram Stain - Final TEST NOT PERFORMED 07/21/17 23:30 Urine,Catheterized Urine Culture - Final No Growth (<1,000 CFU/ML) 07/19/17 12:03 Peritoneal Fluid Gram Stain - Final 07/19/17 12:03 Peritoneal Fluid Body Fluid Culture - Final No growth. 07/18/17 10:47 Blood-Venous Blood Culture - Final NO GROWTH AFTER 5 DAYS 07/18/17 10:47 Blood-Venous Gram Stain - Final TEST NOT PERFORMED 07/20/17 18:00 Urine,Torres Urine Culture - Final No Growth (<1,000 CFU/ML) 07/18/17 12:04 Stool Stool Culture - Final NO SALMONELLA, SHIGELLA OR CAMPYLOBACTER ISOLATED. 07/18/17 12:04 Stool Ova and Parasite Concentrate Exam - Final Most Recent Lab Values WBC 6.6 K/uL (4.8-10.8) 08/31/17 17:26 RBC 2.63 Mil/uL (4.40-5.90) L 08/31/17 17:26 Hgb 7.4 g/dL (12.0-18.0) L 08/31/17 17:26 Hct 22.4 % (35.0-51.0) L 08/31/17 17:26 MCV 85.1 fL (80.0-94.0) 08/31/17 17:26 MCH 28.3 pg (27.0-31.0) 08/31/17 17:26 MCHC 33.2 g/dL (33.0-37.0) 08/31/17 17:26 RDW 16.8 % (11.5-14.5) H 08/31/17 17:26 Plt Count 181 K/uL (130-400) 08/31/17 17:26 MPV 8.8 fL (7.2-11.7) 08/31/17 17:26 Neut % (Auto) 58.0 % (50.0-75.0) 08/31/17 17: Lymph % (Auto) 30.7 % (20.0-40.0) 08/31/17 17:26 [place] % (Auto) 9.1 % (0.0-10.0) 08/31/17 17:26 Eos % (Auto) 0.9 % (0.0-4.0) 08/31/17 17:26 Baso % (Auto) 1.3 % (0.0-2.0) 08/31/17 17:26 Neut # (Auto) 3.9 K/uL (1.8-7.0) 08/31/17 17: Lymph # (Auto) 2.0 K/uL (1.0-4.3) 08/31/17 17:26 [place] # (Auto) 0.6 K/uL (0.0-0.8) 08/31/17 17:26 Eos # (Auto) 0.1 K/uL (0.0-0.7) 08/31/17 17:26 Baso # (Auto) 0.1 K/uL (0.0-0.2) 08/31/17 17:26 Retic Count 2.9 % (0.5-1.5) H 07/18/17 13:55 PT 17.9 SECONDS (9.7-12.2) H 08/16/17 07:11 INR 1.6 08/16/17 07:11 APTT 34 SECONDS (21-34) 07/18/17 13:52 pO2 31 mm/Hg (30-55) 07/22/17 00:15 VBG pH 7.46 (7.32-7.43) H 07/22/17 00:15 VBG pCO2 31 mmHg (40-60) L 07/22/17 00:15 VBG HCO3 23.3 mmol/L 07/22/17 00:15 VBG Total CO2 23.0 mmol/L (22-28) 07/22/17 00:15 VBG O2 Sat (Calc) 63.3 % (40-65) 07/22/17 00:15 VBG Base Excess -0.9 mmol/L (0.0-2.0) L 07/22/17 00:15 Sodium 128 mmol/L (132-148) L 08/31/17 17:26 Potassium 3.7 mmol/L (3.6-5.2) 08/31/17 17:26 Chloride 98 mmol/L (98-107) 08/31/17 17:26 Carbon Dioxide 22 mmol/L (22-30) 08/31/17 17:26 Anion Gap 11 (10-20) 08/31/17 17:26 BUN 9 mg/dL (9-20) 08/31/17 17:26 Creatinine 0.6 mg/dL (0.8-1.5) L 08/31/17 17:26 Est GFR ( Amer) > 60 08/31/17 17:26 Est GFR (Non-Af Amer) > 60 08/31/17 17:26 POC Glucose (mg/dL) 123 mg/dL (65-110) H 08/24/17 11:26 Random Glucose 108 mg/dL (75-110) 08/31/17 17:26 Serum Osmolality 270 mosm/kg (272-300) L 08/06/17 22:58 Lactic Acid 1.9 mmol/L (0.7-2.1) 08/09/17 14:14 Calcium 7.6 mg/dl (8.6-10.4) L 08/31/17 17:26 Phosphorus 3.8 mg/dL (2.5-4.5) 08/12/17 11:16 Iron 110 ug/dL (49-181) 07/18/17 13:55 TIBC 152 ug/dL (250-450) L 07/18/17 13:55 % Saturation 73 (20-55) H 07/18/17 13:55 Magnesium 1.6 mg/dL (1.6-2.3) 08/31/17 17:26 Ferritin 238.0 ng/mL 07/18/17 13:52 Direct Bilirubin 3.7 mg/dL (0.0-0.4) H 07/21/17 06:56 Total Bilirubin 1.0 mg/dL (0.2-1.3) 08/31/17 17:26 AST 51 U/L (17-59) 08/31/17 17:26 ALT 24 U/L (21-72) 08/31/17 17:26 Alkaline Phosphatase 148 U/L (38-126) H 08/31/17 17:26 Ammonia 30 umol/L (9-33) D 08/12/17 11:16 Total Creatine Kinase < 20 U/L (55-170) L 08/01/17 00:16 CK-MB (Mass) 0.52 ng/mL (0.0-3.38) 08/01/17 00:16 Troponin I < 0.0120 ng/mL (0.00-0.120) 08/01/17 00:16 Total Protein 5.6 g/dL (6.3-8.3) L 08/31/17 17:26 Albumin 2.1 g/dL (3.5-5.0) L 08/31/17 17:26 Globulin 3.6 gm/dL (2.2-3.9) 08/31/17 17:26 Albumin/Globulin Ratio 0.6 (1.0-2.1) L 08/31/17 17:26 Lipase 123 U/L (23-300) 08/16/17 07:11 Vitamin B12 772 pg/mL (239-931) 07/18/17 13:52 Folate > 20.0 ng/mL 07/18/17 13:52 Procalcitonin 0.32 NG/ML (0.19-0.49) 07/22/17 00:36 Urine Color Yellow (YELLOW) 08/11/17 04:58 Urine Clarity Clear (Clear) 08/11/17 04:58 Urine pH 5.0 (5.0-8.0) 08/11/17 04:58 Ur Specific [place] 1.011 (1.003-1.030) 08/11/17 04:58 Urine Protein 2+ mg/dL (NEGATIVE) H 08/11/17 04:58 Urine Glucose (UA) Normal mg/dL (Normal) 08/11/17 04:58 Urine Ketones Negative mg/dL (NEGATIVE) 08/11/17 04:58 Urine Blood 2+ (NEGATIVE) H 08/11/17 04:58 Urine Nitrate Negative (NEGATIVE) 08/11/17 04:58 Urine Bilirubin Negative (NEGATIVE) 08/11/17 04:58 Urine Urobilinogen Normal mg/dL (0.2-1.0) 08/11/17 04:58 Ur Leukocyte Esterase Neg Farhana/uL (Negative) 08/11/17 04:58 Urine WBC (Auto) 9 /hpf (0-5) H 08/11/17 04:58 Urine RBC (Auto) 15 /hpf (0-3) H 08/11/17 04:58 Ur Squamous Epith Cells 1 /hpf (0-5) 08/11/17 04:58 Urine Bacteria Rare (<OCC) 08/11/17 04:58 Hyaline Casts 6-10 /lpf (0-2) H 08/11/17 04:58 Granular Casts (Auto) 5 /lpf (0-1) 07/22/17 00:33 Urine Yeast (Budding) Occ /hpf (NEGATIVE) H 08/11/17 04:58 Urine Osmolality 348 mosm/kg (300-1000) 08/11/17 06:05 Ur Random Sodium 131 mmol/L 08/11/17 21:51 Urine Chloride 101 mmol/L (32-290) 08/08/17 10:40 Fluid Source Peritoneal/ascites 08/15/17 15:26 Fluid Appearance Sl cloudy (CLEAR) 08/15/17 15:26 Fluid WBC 168.0 /mm3 (0.0-300.0) 08/15/17 15: Fluid RBC 518.0 /mm3 (0.0-0.0) H 08/15/17 15:26 Fluid Tot Cell Count 100 (0-0) H 08/15/17 15:26 Fluid Neutrophils 3.0 % (0-0) H 08/15/17 15: Fluid Lymphocytes 90.0 % (0-0) H 08/15/17 15: Fld Monocyte/Macrophag 7 % (0-0) H 08/15/17 15: Fluid Albumin 0.2 g/dL 08/15/17 15:26 Fluid Comment 08/15/17 15:26 Peritoneal Tot Protein <3.0 g/dL 07/19/17 11:29 Peritoneal Amylase <10 U/L 07/19/17 11:29 Peritoneal Triglycerid 50 mg/dL (<65) 07/19/17 11:29 Stool Fat, Qual See note 07/20/17 08:20 Stool Sodium 57.50 mEq/L 07/23/17 10:17 Stool Potassium 39 mEq/L 07/23/17 10:17 Stool Chloride 66 mEq/L 07/23/17 10:17 Stool Occult Blood Negative (NEGATIVE) 07/19/17 11:22 Stool Leukocytes, Qual Negative (NEGATIVE) 07/18/17 12:04 Stl Pancreat Elastase 1 52 mcg/g L 07/20/17 08:20 Alcohol, Quantitative 292 mg/dl (0-10) H 07/17/17 22:18 C. difficile Tox B Gene Not detected (Not Detected) 07/18/17 13:28 C. difficile Ag & Toxin Negative (NEGATIVE) 07/31/17 18:01 Giardia Antigen Not detected (Not Detected) 07/18/17 12:01 Hepatitis A IgM Ab Negative (NEGATIVE) 07/22/17 11:01 Hep Bs Antigen Negative (NEGATIVE) 07/22/17 11:01 Hep B Core IgM Ab Negative (NEGATIVE) 07/22/17 11:01 Hepatitis C Antibody Negative (NEGATIVE) 07/22/17 11:01 HIV 1&2 Antibody Screen Negative (NEGATIVE) 07/22/17 11:01 Blood Type O POSITIVE 07/29/17 09:11 Antibody Screen Negative 07/29/17 09:11 Attending/Attestation - Attestation I have personally seen and examined this patient.: Yes I have fully participated in the care of the patient.: Yes I have reviewed all pertinent clinical information, including history, physical exam and plan: Yes Notes (Text): 09/05/17 15:34 Medical attending: Patient was seen and examined by me, I saw the patient together with the medical office technician and agree with the above note by the resident. This is a patient with a very extensive history of alcohol use and as a result his damage to his pancreas as well as liver cirrhosis. While here his admission has been, again with pancreatic insufficiency as well as diarrhea. He is also underwent several paracentesis while here as well as episodes of hepatic encephalopathy due to ammonia buildup. He's had a lot of diarrhea while he's here and we've had to replace his fluids He's also had several episodes of hyponatremia as well that required fluid restrictions as well as 12 apt him to be administered His overall prognosis remains poor. His appetite has been minimal. He has been walking. Today he was mentally very alert and awake and orientated 3. He's can be going to a friend's house to stay at until he can fly back to his home country of [place] There is a supply of medication for the patient to go home with Thank you very much, Js Evans
== END 2017-09-05 15:41 | disposition home or self-care (01) | DRG 556 ==
LOC: C.ER 21:11 → C.5S 07-18 00:30 → C.6T 08-14 04:17
PROVIDERS: ADMIT Hospitalist; ATTEND Hospitalist
PROC: 0W9G3ZZ Drainage of Peritoneal Cavity, Percutaneous Approach (ICD-10-PCS; 2017-07-19)
PROC: HZ2ZZZZ Detoxification Services for Substance Abuse Treatment (ICD-10-PCS; 2017-07-19)
PROC: 30233N1 Transfusion of Nonautologous Red Blood Cells into Peripheral Vein, Percutaneous Approach (ICD-10-PCS; 2017-07-20)
PROC: 0DBK8ZX Excision of Ascending Colon, Via Natural or Artificial Opening Endoscopic, Diagnostic (ICD-10-PCS; 2017-07-28)
PROC: 0DBL8ZX Excision of Transverse Colon, Via Natural or Artificial Opening Endoscopic, Diagnostic (ICD-10-PCS; 2017-07-28)
PROC: 0DBN8ZX Excision of Sigmoid Colon, Via Natural or Artificial Opening Endoscopic, Diagnostic (ICD-10-PCS; 2017-07-28)
PROC: 0DB68ZX Excision of Stomach, Via Natural or Artificial Opening Endoscopic, Diagnostic (ICD-10-PCS; 2017-07-28)
PROC: 0DB98ZX Excision of Duodenum, Via Natural or Artificial Opening Endoscopic, Diagnostic (ICD-10-PCS; 2017-07-28 13:10)
PROC: 0W9G3ZZ Drainage of Peritoneal Cavity, Percutaneous Approach (ICD-10-PCS; 2017-08-04)
PROC: 0W9G3ZZ Drainage of Peritoneal Cavity, Percutaneous Approach (ICD-10-PCS; principal; 2017-08-15)
PROC: 0W9G3ZX Drainage of Peritoneal Cavity, Percutaneous Approach, Diagnostic (ICD-10-PCS; 2017-09-02)
DX: K70.31 Alcoholic cirrhosis of liver with ascites (principal); K72.90 Hepatic failure, unspecified without coma; K70.11 Alcoholic hepatitis with ascites; K85.90 Acute pancreatitis without necrosis or infection, unspecified; J90 Pleural effusion, not elsewhere classified; E83.42 Hypomagnesemia; Z78.1 Physical restraint status; E87.1 Hypo-osmolality and hyponatremia; K86.1 Other chronic pancreatitis; E87.6 Hypokalemia; F10.230 Alcohol dependence with withdrawal, uncomplicated; J98.11 Atelectasis; E86.1 Hypovolemia; K52.89 Other specified noninfective gastroenteritis and colitis; K29.50 Unspecified chronic gastritis without bleeding; K29.70 Gastritis, unspecified, without bleeding; K64.8 Other hemorrhoids; K44.9 Diaphragmatic hernia without obstruction or gangrene; K76.0 Fatty (change of) liver, not elsewhere classified; D63.8 Anemia in other chronic diseases classified elsewhere; F10.220 Alcohol dependence with intoxication, uncomplicated; Y90.8 Blood alcohol level of 240 mg/100 ml or more; F17.200 Nicotine dependence, unspecified, uncomplicated; I10 Essential (primary) hypertension; K52.9 Noninfective gastroenteritis and colitis, unspecified; T50.2X5A Adverse effect of carbonic-anhydrase inhibitors, benzothiadiazides and other diuretics, initial encounter; T83.091A Other mechanical complication of indwelling urethral catheter, initial encounter; Y73.8 Miscellaneous gastroenterology and urology devices associated with adverse incidents, not elsewhere classified; Z51.5 Encounter for palliative care; Z59.0 Homelessness; Z66 Do not resuscitate

== ENCOUNTER 2018-01-04 10:59 | Inpatient (IN) | payer OTHER ==
--- NOTE | 2018-01-04 12:08 | C.PDOC ---
History Of Present Illness <Rocio Adams - Last Filed: 01/04/18 13:03> <Rika Guerin - Last Filed: 01/04/18 18:46> POOR HISTORIAN INCR ABD DISTENTION. HO ETOH ABUSE. PT HAS NO COMPLAINTS. LAST DRINK YEST ROS UTO EXAM MOD DIST, CACHECTIC HEENT +ICTERIC SCLERA; MMM ABD +DISTENDED SOFT NO FOCAL TEND SKIN +JAUNDICE, POOR TURGOR NEURO AWAKE AO2, INTERACTIVE APPROPRIATE; NO GROSS FOCAL DEF; NO TREMORS PSYCH CALM COOPERATIVE NO ACUTE INTOX REMAINDER NEG (Rocio Adams) History Per: Other (friends/patient) Onset/Duration Of Symptoms: Persistent <Rocio Adams - Last Filed: 01/04/18 13:03> <Rika Guerin - Last Filed: 01/04/18 18:46> Time Seen by Provider: 01/04/18 11:52 Chief Complaint (Nursing): Abdominal Pain Past Medical History Reviewed: Historical Data, Nursing Documentation, Vital Signs - Medical History PMH: HTN Denies: Chronic Kidney Disease Surgical History: No Surg Hx Family History: States: No Known Family Hx, Unknown Family Hx - Social History Hx Tobacco Use: No Hx Alcohol Use: Yes Hx Substance Use: No - Immunization History Hx Tetanus Toxoid Vaccination: No Hx Influenza Vaccination: No Hx Pneumococcal Vaccination: No <Rocio Adams - Last Filed: 01/04/18 13:03> Vital Signs: Last Vital Signs Temp 97.3 F L 01/04/18 15:52 Pulse 90 01/04/18 15:52 Resp 14 01/04/18 15:52 BP 88/52 L 01/04/18 15:52 Pulse Ox 100 01/04/18 15:52 - [facility] Procedures DETOXIFICATION SERVICES FOR SUBSTANCE ABUSE TREATMENT (07/18/17) DRAINAGE OF PERITONEAL CAVITY, PERCUTANEOUS APPROACH (07/18/17) DRAINAGE OF PERITONEAL CAVITY, PERCUTANEOUS APPROACH, DIAGN (07/18/17) EXCISION OF ASCENDING COLON, ENDO, DIAGN (07/18/17) EXCISION OF DUODENUM, ENDO, DIAGN (07/18/17) EXCISION OF SIGMOID COLON, ENDO, DIAGN (07/18/17) EXCISION OF STOMACH, ENDO, DIAGN (07/18/17) EXCISION OF TRANSVERSE COLON, ENDO, DIAGN (07/18/17) TRANSFUSE NONAUT RED BLOOD CELLS IN PERIPH VEIN, PERC (07/18/17) Review Of Systems Review Of Systems: ROS cannot be obtained secondary to pt's inabilty to answer questions. <Rocio Adams - Last Filed: 01/04/18 13:03> Physical Exam - Physical Exam Appears: Other (moderate distress, cachectic) Skin: Jaundice, Other (poor turgor) Head: Atraumatic, Normacephalic Eye(s): bilateral: Scleral Icterus Oral Mucosa: Moist Neck: Normal ROM, Supple Chest: Symmetrical Cardiovascular: Rhythm Regular Respiratory: Normal Breath Sounds Gastrointestinal/Abdominal: Normal Exam, Soft, No Tenderness Extremity: Normal ROM, No Pedal Edema, No Deformity Neurological/Psych: Normal Cognition, Normal Motor, Normal Sensation, Other ( AAO x2; interactive appropriately, no gross focal deficits. no tremors. calm and cooperative, no acute intoxication) <Rocio Adams - Last Filed: 01/04/18 13:03> ED Course And Treatment O2 Sat by Pulse Oximetry: 100 (RA) Pulse Ox Interpretation: Normal <Rocio Adams - Last Filed: 01/04/18 13:03> - Laboratory Results Result Diagrams: 01/04/18 14:10 01/04/18 14:10 <Rika Guerin - Last Filed: 01/04/18 18:46> Progress - Data Reviewed Data Reviewed: Lab, Diagnostic imaging, EKG, Old records - Critical Care Citical Care: Excluding Proc Time Critical Care Time: 90 minutes - Continuity of Care Discussed patient case with:: Patient <Rocio Adams - Last Filed: 01/04/18 13:03> Disposition Counseled Patient/Family Regarding: Studies Performed, Diagnosis - Disposition Disposition Time: 13:00 <Rocio Adams - Last Filed: 01/04/18 13:03> - Disposition Disposition Time: 14:14 <Rika Guerin - Last Filed: 01/04/18 18:46> - Disposition Disposition: HOSPITALIZED Condition: CRITICAL - Clinical Impression Clinical Impression: Alcohol abuse, Altered mental state, Severe anemia, Hypotension, Hepatic encephalopathy - Scribe Statement The provider has reviewed the documentation as recorded by the Scribe (Candis Adamson) <Rocio Adams - Last Filed: 01/04/18 13:03> <Rika Guerin - Last Filed: 01/04/18 18:46> - Scribe Statement Provider Attestation: All medical record entries made by the Scribe were at my direction and personally dictated by me. I have reviewed the chart and agree that the record accurately reflects my personal performance of the history, physical exam, medical decision making, and the department course for this patient. I have also personally directed, reviewed, and agree with the discharge instructions and disposition. (Rocio Adams) Physician Patient Turnover Patient Signed Over To: Rika Guerin Handoff Comments: FU LABS, DISPO <Rocio Adams - Last Filed: 01/04/18 13:03> Addendum <Rocio Adams - Last Filed: 01/04/18 13:03> <Rika Guerin - Last Filed: 01/04/18 18:46> Addendum: Patient cachectic and jaundiced appearing. He is awake & alert x2. Hgb 2.3 - anemia studies and SFOB + transfusion of PRBCs ordered. 01/04/18 13:55 Accession No. : [id number] Patient Name / ID : ELICEO HOLLOWAY / [id number] Exam Date : 01/04/2018 12:58:46 ( Approved ) Study Comment : Sex / Age : M / 52Y Creator : Js Boyle MD Dictator : Js Boyle MD Composite Bond Worker : Band Tacker : Js Boyle MD Approver2 : Report Date : 01/04/2018 13:36:08 My Comment : HISTORY: Sepsis Patient COMPARISON: 07/21/2017 FINDINGS: LUNGS: Bibasilar linear scar/ atelectasis. No acute infiltrate. Small calcified granuloma in right apex. PLEURA: No significant pleural effusion identified, no pneumothorax apparent. CARDIOVASCULAR: Normal. OSSEOUS STRUCTURES: No significant abnormalities. VISUALIZED UPPER ABDOMEN: Normal. OTHER FINDINGS: None. IMPRESSION: No active disease. 01/04/18 13:57 Accession No. : [id number] Patient Name / ID : ELICEO HOLLOWAY / [id number] Exam Date : 01/04/2018 13:05:47 ( Approved ) Study Comment : Sex / Age : M / 52Y Creator : Jessica Muhammad Dictator : Js Boyle MD Composite Bond Worker : Band Tacker : Js Boyle MD Approver2 : Report Date : 01/04/2018 13:16:00 My Comment : PROCEDURE: CT HEAD WITHOUT CONTRAST. HISTORY: AMS COMPARISON: 11/18/2015 TECHNIQUE: Axial computed tomography images were obtained through the head/brain without intravenous contrast. Radiation dose: Total exam DLP = 1138.09 mGy-cm. This CT exam was performed using one or more of the following dose reduction techniques: Automated exposure control, adjustment of the mA and/or kV according to patient size, and/or use of iterative reconstruction technique. FINDINGS: HEMORRHAGE: No intracranial hemorrhage. BRAIN: No mass effect or edema. Mild to moderate atrophy greater than expected for patient age. Moderate periventricular white matter lucency with patchy and confluent deep/ subcortical white matter lucency consistent with chronic microvascular ischemic change. Again, greater than expected for patient age. No evidence of acute infarct. VENTRICLES: Unremarkable. No hydrocephalus. CALVARIUM: Unremarkable. PARANASAL SINUSES: Unremarkable as visualized. No significant inflammatory changes. MASTOID AIR CELLS: Unremarkable as visualized. No inflammatory changes. OTHER FINDINGS: None. IMPRESSION: Chronic involutional change greater than expected for patient age. No evidence of acute infarct. No intracranial mass or hemorrhage. No change from 11/18/2015. 01/04/18 14:[address] Huitron, agrees with admission under hospitalist service. Patient pending ICU eval by Dr. Mari, repeat CBC and CMP. 01/04/18 14:50 repeat EKG - NSR 89 bpm, normal axis, ST depressions I, II, V3-V6 (abnormal EKG) 01/04/18 14:52 Blood bank states blood will be available in approx 5 min. Patient accepted for ICU admission by Dr. Mari. (Rika Guerin) Decision To Admit <Rocio Adams - Last Filed: 01/04/18 13:03> - Pt Status Changed To: Hospital Disposition Of: Inpatient - Admit Certification Admit to Inpatient:: After my assessment, the patient will require hospitalization for at least two midnights. This is because of the severity of symptoms shown, intensity of services needed, and/or the medical risk in this patient being treated as an outpatient. - InPatient: Physician Admission Certification:: see notes - . Bed Request Type: ICU Admitting Physician: Ruth Huitron <Rika Guerin - Last Filed: 01/04/18 18:46> - . Patient Diagnosis: Altered mental state, Severe anemia, Hypokalemia, Hepatic encephalopathy, Hypotension
[2018-01-04] MEDS ORDERED: Sodium Chloride 0.9% 250 ML IV ONE (12:11)
[2018-01-04 12:57] LABS: INR 2.3; PROTHROMBIN TIME 24.7 SECONDS (9.7-12.2)
--- NOTE | 2018-01-04 13:24 | CT ---
PROCEDURE: CT HEAD WITHOUT CONTRAST. HISTORY: AMS COMPARISON: 11/18/2015 TECHNIQUE: Axial computed tomography images were obtained through the head/brain without intravenous contrast. Radiation dose: Total exam DLP = 1138.09 mGy-cm. This CT exam was performed using one or more of the following dose reduction techniques: Automated exposure control, adjustment of the mA and/or kV according to patient size, and/or use of iterative reconstruction technique. FINDINGS: HEMORRHAGE: No intracranial hemorrhage. BRAIN: No mass effect or edema. Mild to moderate atrophy greater than expected for patient age. Moderate periventricular white matter lucency with patchy and confluent deep/ subcortical white matter lucency consistent with chronic microvascular ischemic change. Again, greater than expected for patient age. No evidence of acute infarct. VENTRICLES: Unremarkable. No hydrocephalus. CALVARIUM: Unremarkable. PARANASAL SINUSES: Unremarkable as visualized. No significant inflammatory changes. MASTOID AIR CELLS: Unremarkable as visualized. No inflammatory changes. OTHER FINDINGS: None. IMPRESSION: Chronic involutional change greater than expected for patient age. No evidence of acute infarct. No intracranial mass or hemorrhage. No change from 11/18/2015.
[2018-01-04 13:28] LABS: BASO % 0.2 % (0.0-2.0); LYMPH # 1.3 K/uL (1.0-4.3); LYMPH % 10.4 % (20.0-40.0); MEAN CORPUSCULAR HGB CONC 35.5 g/dL (33.0-37.0); MEAN PLATELET VOLUME 8.3 fL (7.2-11.7); MONO # 0.9 K/uL (0.0-0.8); MONO % 7.4 % (0.0-10.0); NRBC % 0.1 % (0.0-2.0); RBC 0.87 Mil/uL (4.40-5.90)
[2018-01-04 13:29] LABS: VENOUS BLOOD GAS BASE EXCESS 0.8 mmol/L (0.0-2.0); VENOUS BLOOD GAS PCO2 34 mmHg (40-60); VENOUS BLOOD GAS PO2 22 mm/Hg (30-55); VENOUS BLOOD PH 7.46 (7.32-7.43)
[2018-01-04 13:31] LABS: WHITE BLOOD COUNT 12.3 K/uL (4.8-10.8)
[2018-01-04 13:32] LABS: HEMOGLOBIN 2.3 g/dL (12.0-18.0); MEAN CELL VOLUME 75.9 fL (80.0-94.0)
--- NOTE | 2018-01-04 13:37 | RAD ---
HISTORY: Sepsis Patient COMPARISON: 07/21/2017 FINDINGS: LUNGS: Bibasilar linear scar/ atelectasis. No acute infiltrate. Small calcified granuloma in right apex. PLEURA: No significant pleural effusion identified, no pneumothorax apparent. CARDIOVASCULAR: Normal. OSSEOUS STRUCTURES: No significant abnormalities. VISUALIZED UPPER ABDOMEN: Normal. OTHER FINDINGS: None. IMPRESSION: No active disease.
[2018-01-04 13:54] LABS: ALB/GLOB RATIO 0.7 (1.0-2.1); CALCIUM 7.5 mg/dl (8.6-10.4)
[2018-01-04] MEDS ORDERED: Sodium Chloride 0.9% 500 ML IV ONE ×3 (13:58→15:18)
[2018-01-04 14:29] LABS: BASO % 0.2 % (0.0-2.0); LYMPH # 1.2 K/uL (1.0-4.3); LYMPH % 11.3 % (20.0-40.0); MEAN CELL VOLUME 76.1 fL (80.0-94.0); MEAN CORPUSCULAR HEMOGLOBIN 27.8 pg (27.0-31.0); MEAN CORPUSCULAR HGB CONC 36.5 g/dL (33.0-37.0); MEAN PLATELET VOLUME 8.5 fL (7.2-11.7); MONO # 0.6 K/uL (0.0-0.8); MONO % 5.8 % (0.0-10.0); NEUT # 8.7 K/uL (1.8-7.0); NEUT % 82.7 % (50.0-75.0); NRBC % 0.1 % (0.0-2.0); RBC 1.05 Mil/uL (4.40-5.90); RED CELL DISTRIBUTION WIDTH 19.5 % (11.5-14.5); WHITE BLOOD COUNT 10.5 K/uL (4.8-10.8)
[2018-01-04 14:34] LABS: HEMOGLOBIN 2.9 g/dL (12.0-18.0)
[2018-01-04 14:45] LABS: IRON 104 ug/dL (49-181)
[2018-01-04 14:46] LABS: TRANSFERRIN 90.05 mg/dL (206-381)
[2018-01-04 14:55] LABS: % IRON SATURATION 61 (20-55); TOTAL IRON BINDING CAPACITY 171 ug/dL (250-450)
[2018-01-04] MEDS ORDERED: Potassium Chloride 20 mEq ER Tab PO STA (14:56)
[2018-01-04 15:00] LABS: ALB/GLOB RATIO 0.7 (1.0-2.1); ALBUMIN 2.9 g/dL (3.5-5.0); CALCIUM 7.5 mg/dl (8.6-10.4)
[2018-01-04] MEDS ORDERED: Potassium Chloride 20 mEq ER Tab PO ONE (15:15)
[2018-01-04] MEDS ORDERED: Potassium Chloride 20 mEq 100 ML ONE (15:17)
--- NOTE | 2018-01-04 15:25 | CP.PCM.CON ---
History of Present Illness - History of Present Illness History of Present Illness: Critical Care Consult Note This is a 52 year old male with PMHx of Liver Cirrhosis with recurrent ascites, hepatic encephalopathy, ?chronic pancreatitis, with pancreatic insufficiency, Anemia of Chronic Disease admitted for AMS, abdominal pain, found to have hemoglobin of 2.9 and potassium of 1.4 on admission. As per EMR, primary attending spoke to long time friend of patient,who reports he received a phone call from [place] yesterday around 3pm in the afternoon indicated that his belly is hurting him and he feels it firm and wanted to go to the hospital. 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 He reports that the friend did not look good this morning, appear confused, staring off to space, and couldn't stand on his feet. He also reported that he did see alcohol bottle in his friend's house. He reports he has known patient benjamin for close to 18 years and noted he is a drinker since 1999. Patient admitted to ICU for close monitoring. Medical Hx: Liver Cirrhosis with recurrent ascites, hepatic encephalopathy, ? chronic pancreatitis, with pancreatic insufficiency, Anemia of Chronic Disease Surgery hx: endoscopy (07/28/17); colonoscopy (07/28/17) Allergies: NKDA Medications: patient is not taking any medications. Social Hx; alcoholic since known 1999, tobacco use Family hx: unknown; left him, has cousins who are not involved in his care HCM: does not have a PMD Patient does have POLST-->DNR/DNI on record from last hospitalization. Luis Peng [phone] Patient's Friend-->who brought him in; friendship >20 years and involved in case also noted in last admission. Past Patient History - Infectious Disease Hx of Infectious Diseases: None - Tetanus Immunizations Tetanus Immunization: Unknown - Past Medical History & Family History Past Medical History?: Yes - Past Social History Smoking Status: Never Smoked - CARDIAC Hx Hypertension: Yes - PULMONARY Hx Respiratory Disorders: No - NEUROLOGICAL Hx Neurological Disorder: No - HEENT Hx HEENT Problems: No - RENAL Hx Chronic Kidney Disease: No - ENDOCRINE/METABOLIC Hx Endocrine Disorders: No - HEMATOLOGICAL/ONCOLOGICAL Hx Blood Disorders: No - INTEGUMENTARY Hx Dermatological Problems: No - MUSCULOSKELETAL/RHEUMATOLOGICAL Hx Musculoskeletal Disorders: No Hx Falls: No - GASTROINTESTINAL Hx Gastrointestinal Disorders: Yes Hx Liver Failure: Yes Other/Comment: LIVER CIRRHOSIS AND ASCITES. - GENITOURINARY/GYNECOLOGICAL Hx Genitourinary Disorders: No - PSYCHIATRIC Hx Substance Use: No - SURGICAL HISTORY Hx Surgeries: No - ANESTHESIA Hx Anesthesia: No Hx Anesthesia Reactions: No Meds Allergies/Adverse Reactions: Allergies Allergy/AdvReac Type Severity Reaction Status Date / Time No Known Allergies Allergy Verified 01/04/18 11:24 - Medications Medications: Current Medications Potassium Chloride (Potassium Chloride 20 Meq/100 Ml) 20 meq in 100 mls @ 50 mls/hr IVPB ONCE ONE Stop: 01/04/18 16:55 Last Admin: 01/04/18 15:24 Dose: 50 mls/hr Potassium Chloride 40 meq/ (Sodium Chloride) 1,020 mls @ 100 mls/hr IV .[id number] SABINA Magnesium Sulfate/Dextrose (Magnesium Sulfate 1 Gm/100 Ml D5w) 1 gm in 100 mls @ 300 mls/hr IVPB Q30M SABINA Stop: 01/04/18 16:19 Potassium Chloride (Potassium Chloride 20 Meq/100 Ml) 20 meq in 100 mls @ 50 mls/hr IVPB ONCE ONE Stop: 01/04/18 17:19 Potassium Chloride (Potassium Chloride 20 Meq/100 Ml) 20 meq in 100 mls @ 50 mls/hr IVPB ONCE ONE Stop: 01/04/18 20:59 Pantoprazole Sodium (Protonix Inj) 40 mg IVP Q12H SABINA Phytonadione (Vitamin K Tab) 5 mg PO STAT STA Stop: 01/04/18 15:24 Physical Exam - Constitutional Appears: Toxic, Chronically Ill - Head Exam Head Exam: ATRAUMATIC, NORMAL INSPECTION, NORMOCEPHALIC - Eye Exam Eye Exam: EOMI, Normal appearance, PERRL, Scleral icterus. absent: Nystagmus - ENT Exam ENT Exam: Mucous Membranes Dry - Respiratory Exam Respiratory Exam: Decreased Breath Sounds - Cardiovascular Exam Cardiovascular Exam: Tachycardia - GI/Abdominal Exam GI & Abdominal Exam: Distended, Firm, Normal Bowel Sounds. absent: Mass, Organomegaly - Rectal Exam Rectal Exam: Deferred - Extremities Exam Extremities exam: Positive for: normal inspection, pedal pulses present. Negative for: pedal edema, tenderness - Neurological Exam Neurological exam: Altered - Psychiatric Exam Psychiatric exam: Anxious, Flat Affect - Skin Additional comments: jaundice Results - Vital Signs Recent Vital Signs: Last Vital Signs Temp 97.5 F L 01/04/18 15:04 Pulse 90 01/04/18 15:04 Resp 14 01/04/18 15:04 BP 84/49 L 01/04/18 14:02 Pulse Ox 100 01/04/18 15:04 - Labs Result Diagrams: 01/04/18 14:10 01/04/18 14:10 Labs: Laboratory Results - last 24 hr 01/04/18 01/04/18 01/04/18 12:29 12:29 12:52 WBC RBC Hgb Hct MCV MCH MCHC RDW Plt Count MPV Neut % (Auto) Lymph % (Auto) Ceiba % (Auto) Eos % (Auto) Baso % (Auto) Neut # (Auto) Lymph # (Auto) Ceiba # (Auto) Eos # (Auto) Baso # (Auto) Smear Path Review Retic Count Haptoglobin PT 24.7 H INR 2.3 APTT 32 pO2 VBG pH VBG pCO2 VBG HCO3 VBG Total CO2 VBG Base Excess VBG Potassium Glucose Lactate Crit Value Called To Crit Value Called By Crit Value Read Back Blood Gas Notified Time Sodium Potassium Chloride Carbon Dioxide Anion Gap BUN Creatinine Est GFR ( Amer) Est GFR (Non-Af Amer) POC Glucose (mg/dL) 152 H Random Glucose Calcium Phosphorus Magnesium Iron TIBC % Saturation Transferrin Total Bilirubin AST ALT Alkaline Phosphatase Ammonia 15 D Total Protein Albumin Globulin Albumin/Globulin Ratio Lipase Venous Blood Potassium Stool Occult Blood Alcohol, Quantitative Blood Type Antibody Screen 01/04/18 01/04/18 01/04/18 13:22 13:22 13:24 WBC 12.3 H D RBC 0.87 L Hgb 2.3 L* D Hct 6.6 L MCV 75.9 L D MCH 27.0 MCHC 35.5 RDW 20.0 H Plt Count 173 MPV 8.3 Neut % (Auto) 82.0 H Lymph % (Auto) 10.4 L Ceiba % (Auto) 7.4 Eos % (Auto) 0.0 Baso % (Auto) 0.2 Neut # (Auto) 10.0 H Lymph # (Auto) 1.3 Ceiba # (Auto) 0.9 H Eos # (Auto) 0.0 Baso # (Auto) 0.0 Smear Path Review Retic Count Haptoglobin PT INR APTT pO2 22 L VBG pH 7.46 H VBG pCO2 34 L VBG HCO3 24.0 VBG Total CO2 25.2 VBG Base Excess 0.8 VBG Potassium 1.1 L* Glucose 133 H Lactate 9.2 H* Crit Value Called To Dr.ho barber Crit Value Called By Bita quiles,rt Crit Value Read Back Y Blood Gas Notified Time 1350 Sodium 125 L 126.0 L Potassium 1.4 L* D Chloride 79 L 84.0 L Carbon Dioxide 21 L Anion Gap 27 H BUN 49 H Creatinine 2.9 H Est GFR ( Amer) 28 Est GFR (Non-Af Amer) 23 POC Glucose (mg/dL) Random Glucose 132 H Calcium 7.5 L Phosphorus 2.4 L Magnesium 1.2 L Iron TIBC % Saturation Transferrin Total Bilirubin 5.4 H AST 126 H D ALT 26 Alkaline Phosphatase 127 H Ammonia Total Protein 7.3 Albumin 3.0 L D Globulin 4.3 H Albumin/Globulin Ratio 0.7 L Lipase 317 H Venous Blood Potassium 1.1 L* Stool Occult Blood Alcohol, Quantitative 25 H Blood Type Antibody Screen 01/04/18 01/04/18 01/04/18 14:10 14:10 14:10 WBC 10.5 RBC 1.05 L Hgb 2.9 L* Hct 8.0 L MCV 76.1 L MCH 27.8 MCHC 36.5 RDW 19.5 H Plt Count 142 MPV 8.5 Neut % (Auto) 82.7 H Lymph % (Auto) 11.3 L Ceiba % (Auto) 5.8 Eos % (Auto) 0.0 Baso % (Auto) 0.2 Neut # (Auto) 8.7 H Lymph # (Auto) 1.2 Ceiba # (Auto) 0.6 Eos # (Auto) 0.0 Baso # (Auto) 0.0 Smear Path Review Retic Count 0.1 L D Haptoglobin PT INR APTT pO2 VBG pH VBG pCO2 VBG HCO3 VBG Total CO2 VBG Base Excess VBG Potassium Glucose Lactate Crit Value Called To Crit Value Called By Crit Value Read Back Blood Gas Notified Time Sodium Potassium Chloride Carbon Dioxide Anion Gap BUN Creatinine Est GFR ( Amer) Est GFR (Non-Af Amer) POC Glucose (mg/dL) Random Glucose Calcium Phosphorus Magnesium Iron 104 TIBC 171 L % Saturation 61 H Transferrin Total Bilirubin AST ALT Alkaline Phosphatase Ammonia Total Protein Albumin Globulin Albumin/Globulin Ratio Lipase Venous Blood Potassium Stool Occult Blood Alcohol, Quantitative Blood Type O POSITIVE Antibody Screen Negative 01/04/18 01/04/18 01/04/18 14:10 14:12 14:30 WBC RBC Hgb Hct MCV MCH MCHC RDW Plt Count MPV Neut % (Auto) Lymph % (Auto) Ceiba % (Auto) Eos % (Auto) Baso % (Auto) Neut # (Auto) Lymph # (Auto) Ceiba # (Auto) Eos # (Auto) Baso # (Auto) Smear Path Review Retic Count Haptoglobin 199.3 PT INR APTT pO2 VBG pH VBG pCO2 VBG HCO3 VBG Total CO2 VBG Base Excess VBG Potassium Glucose Lactate Crit Value Called To Crit Value Called By Crit Value Read Back Blood Gas Notified Time Sodium 127 L Potassium 1.5 L* Chloride 81 L Carbon Dioxide 21 L Anion Gap 26 H BUN 46 H Creatinine 2.9 H Est GFR ( Amer) 28 Est GFR (Non-Af Amer) 23 POC Glucose (mg/dL) Random Glucose 121 H Calcium 7.5 L Phosphorus Magnesium Iron TIBC % Saturation Transferrin 90.05 L Total Bilirubin 5.6 H AST 124 H ALT 30 Alkaline Phosphatase 115 Ammonia Total Protein 7.0 Albumin 2.9 L Globulin 4.1 H Albumin/Globulin Ratio 0.7 L Lipase Venous Blood Potassium Stool Occult Blood Negative Alcohol, Quantitative Blood Type Antibody Screen Assessment & Plan - Assessment and Plan (Free Text) Assessment: This is a 52 year old male with PMHx of Liver Cirrhosis with recurrent ascites, hepatic encephalopathy, ?chronic pancreatitis, with pancreatic insufficiency, Anemia of Chronic Disease admitted for SEVERE Anemia, Hypokalemia. Plan: Neuro: GCS 13 (E4, V4, M5) A: AMS 2/2 Hepatic Encephalopathy GI: A: GIB?? - Hemoglobin 2.9 on admission, no hx of AC use - Stool Occult - negative - PPI Q12 - Continue to monitor A: Liver Cirrhosis - MELD score on admission 32, with Mortality of 53% - Abdominal US to evaluate ascites; if paracentesis is necessary - will wait till INR is within normal range A: Hepatic Encephalopathy - Ammonia <20 on admission - Refrain from Lactulose, Xifaximin - until electrolytes normalize A: Possible Chronic Pancreatitis, Pancreatic insufficiency Previous admission 07/2017: - Per Dr. South, he suspects pancreatic insufficiency as possible cause due to low stool pancreatic elastase and ordered an MRCP which was unable to be obtained due to patient restlessness - Dr. South consulted Dr. Guerrero for evaluation of possible chronic pancreatitis and possible EUS work up * Per Dr. Guerrero, pursue EUS as an outpatient for definitive diagnosis of chronic pancreatitis * Pancreatic enzymes were started with meals (Cholestyramine Resin (Questran) [facility]) and Aldactone increased to 50 mg PO BID by GI team * [place] [address] units TID with meals Previous Admission 07/2017 - Endoscopy (07/28): small hiatal hernia, patchy mild inflammation in gastric antrum biopsies, scalloped mucosa found in duodenum, suspicious for celiac disease- biopsied; Biopsy: Benign - Colonoscopy (07/28): internal hemorrhoids, mucosal nodule in the sigmoid colon , in transverse colon and in the ascending colon- biopsied; Biopsy; benign Renal: A: Electrolyte imbalance - Hypokalemia 1.4 on admission - Aggresively replenishing all electrolytes Heme/ Onc: A: Anemia of chronic disease - Concern for GIB - Likely also 2/2 bone supression from ETOH - Baseline hemoglobin 8s - 2.9 on admission - Will receive total 3 units PRBCs, 2 FFP - Continue to monitor A: Coagulopathy - INR - 2.3 - Vitamin K - FFP x 2 - Continue to monitor Psych: A: ETOH Abuse - Will receive MV, thiamine, folic IV then PO once patient is not NPO - Alcohol level 25 on admission - Ativan PRN Prophylaxis - Protonix Q12 - SCDs, VTE c/i - As per previous admission: DNR/DNI after palliative care discussion 07/2017. POLST form was filled out during that admission. - PT eval, speech, and swallow eval DW Ghazala Gupta DO, PGY-1
[2018-01-04] MEDS ORDERED: Potassium Chloride 20 mEq ER Tab PO SCH (15:30)
[2018-01-04 16:03] LABS: VENOUS BLOOD GAS BASE EXCESS -1.3 mmol/L (0.0-2.0); VENOUS BLOOD GAS PCO2 35 mmHg (40-60); VENOUS BLOOD GAS PO2 22 mm/Hg (30-55); VENOUS BLOOD PH 7.42 (7.32-7.43)
[2018-01-04] MEDS: Magnesium Sulfate 1 gm in D5W 1 GM/100 ML BAG IVPB SCH ×2 (16:37→17:46)
--- NOTE | 2018-01-04 17:49 | CP.PCM.PN ---
Subjective - Date & Time of Evaluation Date of Evaluation: 01/04/18 Time of Evaluation: 15:30 - Subjective Subjective: Hospitalist Brief Note; Awaiting H&P by resident. Patient is known to the hospitalist service from last admission by my colleagues. This is my first meeting with this fellow. I came to examine the patient with Dr. Mari. Patient is not alert, confused and unable to answer appropriately to questions. Patient's friends are not at bedside. I reviewed his last hospitalization in August. Patient had two friends involved in his care, Mazin Peng [phone] and Luis Peng. Mazin Peng indicated he has not had involvement his friend's life for the past 3 months and I not spoken in regards to patient's current situation. I have spoken with Luis Peng [phone] on the phone, who reports he received a phone call from [place] yesterday around 3pm in the afternoon indicated that his belly is hurting him and he feels it firm and wanted to go to the hospital. His friend was out of state at time, came to pick up and delivery driver his friend this morning. He reports that the friend did not look good this morning, appear confused, staring off to space, and couldn't stand on his feet. He also reported that he did see alcohol bottle in his friend's house. He reports he has known patient benjamin for close to 18 years and noted he is a drinker since 1999. I have asked him since he was last hospitalized in Aug was he able to get the medications. He noted he tried to but the medications were too expensive for him to buy, reports he brought a medication orange colored packet for the his friend. He reports the patient does not have a relationship with his and reports he has cousins in the state but are not involved in his care neither. He reports patient Benjamin has been living with a friend. information obtained from last discharge summary of known hospitalization at [facility]: Medical Hx; Ascites, prior hepatic encephalopathy, alcohol abuse, anemia (7s), tobacco use, pancreatic insufficiency? possible chronic pancreatitis? Surgery hx: endoscopy (07/28/17); colonoscopy (07/28/17) Allergies: NKDA Medications: patient is not taking any medications. Social Hx; alcoholic since known 1999, tobacco use Family hx: unknown; left him, has cousins who are not involved in his care HCM: does not have a PMD Patient does have POLST-->DNR/DNI on record from last hospitalization. Luis Peng [phone] Patient's Friend-->who brought him in; friendship >20 years and involved in case also noted in last admission. Objective - Vital Signs/Intake and Output Vital Signs (last 24 hours): Temp Pulse Resp BP Pulse Ox 97.3 F L 90 14 88/52 L 100 01/04/18 15:52 01/04/18 15:52 01/04/18 15:52 01/04/18 15:52 01/04/18 15:52 - Medications Medications: Current Medications Potassium Chloride (Potassium Chloride 20 Meq/100 Ml) 20 meq in 100 mls @ 50 mls/hr IVPB ONCE ONE Stop: 01/04/18 20:59 Multivitamins/Vitamin C 10 ml/Thiamine HCl 100 mg/ Folic Acid 1 mg/ Dextrose 1, 011.2 mls @ 100 mls/hr IV Q24H SABINA Potassium Chloride 40 meq/ (Sodium Chloride) 1,020 mls @ 100 mls/hr IV .[id number] SABINA Lorazepam (Ativan) 1 mg IVP Q4H PRN PRN Reason: Symptoms of alcohol withdrawl Pantoprazole Sodium (Protonix Inj) 40 mg IVP Q12H SABINA Potassium Chloride (Potassium Chloride Oral Soln) 40 meq PO Q4H SABINA Stop: 01/05/18 04:31 - Labs Labs: 01/04/18 14:10 01/04/18 14:10 PT 24.7 SECONDS (9.7-12.2) H 01/04/18 12:29 INR 2.3 01/04/18 12:29 APTT 32 SECONDS (21-34) 01/04/18 12:29 - Constitutional Appears: Confused, Cachectic, Chronically Ill - Head Exam Head Exam: NORMAL INSPECTION Additional comments: jaundiced from head to toe there is not apparent bleeding - Eye Exam Eye Exam: PERRL, Scleral icterus. absent: Nystagmus - ENT Exam ENT Exam: Mucous Membranes Moist - Respiratory Exam Respiratory Exam: NORMAL BREATHING PATTERN. absent: Respiratory Distress, Stridor - Cardiovascular Exam Cardiovascular Exam: REGULAR RHYTHM, +S1, +S2 - GI/Abdominal Exam GI & Abdominal Exam: Distended, Soft. absent: Guarding, Rigid, Tenderness, Rebound - Extremities Exam Extremities Exam: absent: Pedal Edema, Tenderness - Neurological Exam Neurological Exam: Altered Additional comments: unable to test neuro in terms of motor and sensory secondary to alter mental status - Skin Additional comments: jaundice visible Assessment and Plan (1) Hepatic encephalopathy Status: Acute (2) Hypomagnesemia Status: Acute (3) Liver cirrhosis Status: Acute (4) Alcohol abuse Status: Acute (5) Abdominal pain Status: Acute (6) Anemia Status: Acute (7) Ascites Status: Acute (8) Hypokalemia Status: Acute (9) DNR (do not resuscitate) Status: Acute (10) DNI (do not intubate) Status: Acute (11) Prophylactic measure Status: Acute
[2018-01-04] MEDS ORDERED: Glucagon Recombinant 1 mg Inj IM PRN (18:57)
[2018-01-04] MEDS ORDERED: Dextrose 50% SYRINGE Inj (50 ml) IV PRN (19:08)
[2018-01-04] MEDS ORDERED: (Novolin R) Insulin Human Regular 100 units/ml vial SC SCH (19:15)
[2018-01-04] MEDS: Multivitamin (MVI) 10 ML, Thiamine 100 MG, Folic Acid 1 MG in Dextrose 5% In Water 1,00... IV SCH (20:00)
[2018-01-04] MEDS: Potassium Chloride 20 mEq/15 ml LIQ UD PO SCH (20:20)
[2018-01-04 20:43] LABS: CALCIUM 6.2 mg/dl (8.6-10.4)
[2018-01-05] MEDS: Potassium Chloride 20 mEq/15 ml LIQ UD PO SCH ×4 (00:19→22:09)
[2018-01-05] MEDS: (Novolin R) Insulin Human Regular 100 units/ml vial SC SCH ×4 (00:39→17:46)
[2018-01-05] MEDS: Multivitamin (MVI) 10 ML, Thiamine 100 MG, Folic Acid 1 MG in Dextrose 5% In Water 1,00... IV SCH (06:01)
[2018-01-05 06:05] LABS: URINE BILIRUBIN NEGATIVE (NEGATIVE); URINE CLARITY Clear (Clear); URINE COLOR Amber (YELLOW); URINE GLUCOSE (UA) NORMAL (Normal); URINE HYALINE CAST 0-2 /lpf (0-2); URINE LEUKOCYTE ESTERASE NEG Leu/uL (Negative); URINE PROTEIN NEGATIVE (NEGATIVE)
[2018-01-05 06:06] LABS: URINE BLOOD NEGATIVE (NEGATIVE)
[2018-01-05 06:41] LABS: BARBITURATES, UR NEGATIVE (NEGATIVE); BENZODIAZEPINES, UR NEGATIVE (NEGATIVE); OPIATES, UR NEGATIVE (NEGATIVE); PHENCYCLIDINE, UR NEGATIVE (NEGATIVE)
--- NOTE | 2018-01-05 07:25 | CP.PCM.HP ---
<Ghazala Diane - Last Filed: 01/05/18 07:23> History of Present Illness - History of Present Illness History of Present Illness: This is a 52 year old male with PMHx of Liver Cirrhosis with recurrent ascites, hepatic encephalopathy, ?chronic pancreatitis, with pancreatic insufficiency, Anemia of Chronic Disease admitted for AMS, abdominal pain, found to have hemoglobin of 2.9 and potassium of 1.4 on admission. As per EMR, primary attending spoke to long time friend of patient,who reports he received a phone call from [place] yesterday around 3pm in the afternoon indicated that his belly is hurting him and he feels it firm and wanted to go to the hospital. His friend was out of state at time, came to flower buncher or picker his friend this morning. He reports that the friend did not look good this morning, appear confused, staring off to space, and couldn't stand on his feet. He also reported that he did see alcohol bottle in his friend's house. He reports he has known patient benjamin for close to 18 years and noted he is a drinker since 1999. Patient admitted to ICU for close monitoring. Medical Hx: Liver Cirrhosis with recurrent ascites, hepatic encephalopathy, ? chronic pancreatitis, with pancreatic insufficiency, Anemia of Chronic Disease Surgery hx: endoscopy (07/28/17); colonoscopy (07/28/17) Allergies: NKDA Medications: patient is not taking any medications. Social Hx; alcoholic since known 1999, tobacco use Family hx: unknown; left him, has cousins who are not involved in his care HCM: does not have a PMD Patient does have POLST-->DNR/DNI on record from last hospitalization. Luis Peng [phone] Patient's Friend-->who brought him in; friendship >20 years and involved in case also noted in last admission. Present on Admission - Present on Admission Any Indicators Present on Admission: No Past Patient History - Infectious Disease Hx of Infectious Diseases: None - Tetanus Immunizations Tetanus Immunization: Unknown - Past Medical History & Family History Past Medical History?: Yes - Past Social History Smoking Status: Never Smoked - CARDIAC Hx Hypertension: Yes - PULMONARY Hx Respiratory Disorders: No - NEUROLOGICAL Hx Neurological Disorder: No - HEENT Hx HEENT Problems: No - RENAL Hx Chronic Kidney Disease: No - ENDOCRINE/METABOLIC Hx Endocrine Disorders: No - HEMATOLOGICAL/ONCOLOGICAL Hx Blood Disorders: No - INTEGUMENTARY Hx Dermatological Problems: No - MUSCULOSKELETAL/RHEUMATOLOGICAL Hx Musculoskeletal Disorders: No Hx Falls: No - GASTROINTESTINAL Hx Gastrointestinal Disorders: Yes Hx Liver Failure: Yes Other/Comment: LIVER CIRRHOSIS AND ASCITES. - GENITOURINARY/GYNECOLOGICAL Hx Genitourinary Disorders: No - PSYCHIATRIC Hx Substance Use: No - SURGICAL HISTORY Hx Surgeries: No - ANESTHESIA Hx Anesthesia: No Hx Anesthesia Reactions: No Meds Allergies/Adverse Reactions: Allergies Allergy/AdvReac Type Severity Reaction Status Date / Time No Known Allergies Allergy Verified 01/04/18 11:24 Physical Exam - Additional Findings Additional findings: - Constitutional Appears: Toxic, Chronically Ill - Head Exam Head Exam: ATRAUMATIC, NORMAL INSPECTION, NORMOCEPHALIC - Eye Exam Eye Exam: EOMI, Normal appearance, PERRL, Scleral icterus. absent: Nystagmus - ENT Exam ENT Exam: Mucous Membranes Dry - Respiratory Exam Respiratory Exam: Decreased Breath Sounds - Cardiovascular Exam Cardiovascular Exam: Tachycardia - GI/Abdominal Exam GI & Abdominal Exam: Distended, Firm, Normal Bowel Sounds. absent: Mass, Organomegaly - Rectal Exam Rectal Exam: Deferred - Extremities Exam Extremities exam: Positive for: normal inspection, pedal pulses present. Negative for: pedal edema, tenderness - Neurological Exam Neurological exam: Altered - Psychiatric Exam Psychiatric exam: Anxious, Flat Affect - Skin Additional comments: jaundice Results - Vital Signs Recent Vital Signs: Last Vital Signs Temp 97.9 F 01/05/18 05:57 Pulse 93 H 01/05/18 07:04 Resp 14 01/05/18 07:04 BP 102/64 01/05/18 07:04 Pulse Ox 97 01/05/18 07:04 - Labs Result Diagrams: 01/04/18 14:10 01/04/18 20:23 Labs: Laboratory Results - last 24 hr 01/04/18 01/04/18 01/04/18 12:29 12:29 12:52 WBC RBC Hgb Hct MCV MCH MCHC RDW Plt Count MPV Neut % (Auto) Lymph % (Auto) Floyd % (Auto) Eos % (Auto) Baso % (Auto) Neut # (Auto) Lymph # (Auto) Floyd # (Auto) Eos # (Auto) Baso # (Auto) Smear Path Review Retic Count Haptoglobin PT 24.7 H INR 2.3 APTT 32 pO2 VBG pH VBG pCO2 VBG HCO3 VBG Total CO2 VBG Base Excess VBG Potassium Glucose Lactate Crit Value Called To Crit Value Called By Crit Value Read Back Blood Gas Notified Time Sodium Potassium Chloride Carbon Dioxide Anion Gap BUN Creatinine Est GFR ( Amer) Est GFR (Non-Af Amer) POC Glucose (mg/dL) 152 H Random Glucose Lactic Acid Calcium Phosphorus Magnesium Iron TIBC % Saturation Transferrin Ferritin Total Bilirubin AST ALT Alkaline Phosphatase Ammonia 15 D Total Protein Albumin Globulin Albumin/Globulin Ratio Lipase Venous Blood Potassium Urine Color Urine Clarity Urine pH Ur Specific [place] Urine Protein Urine Glucose (UA) Urine Ketones Urine Blood Urine Nitrate Urine Bilirubin Urine Urobilinogen Ur Leukocyte Esterase Urine WBC (Auto) Urine RBC (Auto) Hyaline Casts Stool Occult Blood Urine Opiates Screen Urine Methadone Screen Ur Barbiturates Screen Ur Phencyclidine Scrn Ur Amphetamines Screen U Benzodiazepines Scrn U Oth Cocaine Metabols U Cannabinoids Screen Alcohol, Quantitative Blood Type Antibody Screen 01/04/18 01/04/18 01/04/18 13:22 13:22 13:24 WBC 12.3 H D RBC 0.87 L Hgb 2.3 L* D Hct 6.6 L MCV 75.9 L D MCH 27.0 MCHC 35.5 RDW 20.0 H Plt Count 173 MPV 8.3 Neut % (Auto) 82.0 H Lymph % (Auto) 10.4 L Floyd % (Auto) 7.4 Eos % (Auto) 0.0 Baso % (Auto) 0.2 Neut # (Auto) 10.0 H Lymph # (Auto) 1.3 Floyd # (Auto) 0.9 H Eos # (Auto) 0.0 Baso # (Auto) 0.0 Smear Path Review Retic Count Haptoglobin PT INR APTT pO2 22 L VBG pH 7.46 H VBG pCO2 34 L VBG HCO3 24.0 VBG Total CO2 25.2 VBG Base Excess 0.8 VBG Potassium 1.1 L* Glucose 133 H Lactate 9.2 H* Crit Value Called To Dr.ho barber Crit Value Called By Bita quiles,rt Crit Value Read Back Y Blood Gas Notified Time 1350 Sodium 125 L 126.0 L Potassium 1.4 L* D Chloride 79 L 84.0 L Carbon Dioxide 21 L Anion Gap 27 H BUN 49 H Creatinine 2.9 H Est GFR ( Amer) 28 Est GFR (Non-Af Amer) 23 POC Glucose (mg/dL) Random Glucose 132 H Lactic Acid Calcium 7.5 L Phosphorus 2.4 L Magnesium 1.2 L Iron TIBC % Saturation Transferrin Ferritin Total Bilirubin 5.4 H AST 126 H D ALT 26 Alkaline Phosphatase 127 H Ammonia Total Protein 7.3 Albumin 3.0 L D Globulin 4.3 H Albumin/Globulin Ratio 0.7 L Lipase 317 H Venous Blood Potassium 1.1 L* Urine Color Urine Clarity Urine pH Ur Specific [place] Urine Protein Urine Glucose (UA) Urine Ketones Urine Blood Urine Nitrate Urine Bilirubin Urine Urobilinogen Ur Leukocyte Esterase Urine WBC (Auto) Urine RBC (Auto) Hyaline Casts Stool Occult Blood Urine Opiates Screen Urine Methadone Screen Ur Barbiturates Screen Ur Phencyclidine Scrn Ur Amphetamines Screen U Benzodiazepines Scrn U Oth Cocaine Metabols U Cannabinoids Screen Alcohol, Quantitative 25 H Blood Type Antibody Screen 01/04/18 01/04/18 01/04/18 14:10 14:10 14:10 WBC 10.5 RBC 1.05 L Hgb 2.9 L* Hct 8.0 L MCV 76.1 L MCH 27.8 MCHC 36.5 RDW 19.5 H Plt Count 142 MPV 8.5 Neut % (Auto) 82.7 H Lymph % (Auto) 11.3 L Floyd % (Auto) 5.8 Eos % (Auto) 0.0 Baso % (Auto) 0.2 Neut # (Auto) 8.7 H Lymph # (Auto) 1.2 Floyd # (Auto) 0.6 Eos # (Auto) 0.0 Baso # (Auto) 0.0 Smear Path Review Retic Count 0.1 L D Haptoglobin PT INR APTT pO2 VBG pH VBG pCO2 VBG HCO3 VBG Total CO2 VBG Base Excess VBG Potassium Glucose Lactate Crit Value Called To Crit Value Called By Crit Value Read Back Blood Gas Notified Time Sodium Potassium Chloride Carbon Dioxide Anion Gap BUN Creatinine Est GFR ( Amer) Est GFR (Non-Af Amer) POC Glucose (mg/dL) Random Glucose Lactic Acid Calcium Phosphorus Magnesium Iron 104 TIBC 171 L % Saturation 61 H Transferrin Ferritin Total Bilirubin AST ALT Alkaline Phosphatase Ammonia Total Protein Albumin Globulin Albumin/Globulin Ratio Lipase Venous Blood Potassium Urine Color Urine Clarity Urine pH Ur Specific [place] Urine Protein Urine Glucose (UA) Urine Ketones Urine Blood Urine Nitrate Urine Bilirubin Urine Urobilinogen Ur Leukocyte Esterase Urine WBC (Auto) Urine RBC (Auto) Hyaline Casts Stool Occult Blood Urine Opiates Screen Urine Methadone Screen Ur Barbiturates Screen Ur Phencyclidine Scrn Ur Amphetamines Screen U Benzodiazepines Scrn U Oth Cocaine Metabols U Cannabinoids Screen Alcohol, Quantitative Blood Type O POSITIVE Antibody Screen Negative 01/04/18 01/04/18 01/04/18 14:10 14:12 14:30 WBC RBC Hgb Hct MCV MCH MCHC RDW Plt Count MPV Neut % (Auto) Lymph % (Auto) Floyd % (Auto) Eos % (Auto) Baso % (Auto) Neut # (Auto) Lymph # (Auto) Floyd # (Auto) Eos # (Auto) Baso # (Auto) Smear Path Review Retic Count Haptoglobin 199.3 PT INR APTT pO2 VBG pH VBG pCO2 VBG HCO3 VBG Total CO2 VBG Base Excess VBG Potassium Glucose Lactate Crit Value Called To Crit Value Called By Crit Value Read Back Blood Gas Notified Time Sodium 127 L Potassium 1.5 L* Chloride 81 L Carbon Dioxide 21 L Anion Gap 26 H BUN 46 H Creatinine 2.9 H Est GFR ( Amer) 28 Est GFR (Non-Af Amer) 23 POC Glucose (mg/dL) Random Glucose 121 H Lactic Acid Calcium 7.5 L Phosphorus Magnesium Iron TIBC % Saturation Transferrin 90.05 L Ferritin 1460.0 Total Bilirubin 5.6 H AST 124 H ALT 30 Alkaline Phosphatase 115 Ammonia Total Protein 7.0 Albumin 2.9 L Globulin 4.1 H Albumin/Globulin Ratio 0.7 L Lipase Venous Blood Potassium Urine Color Urine Clarity Urine pH Ur Specific [place] Urine Protein Urine Glucose (UA) Urine Ketones Urine Blood Urine Nitrate Urine Bilirubin Urine Urobilinogen Ur Leukocyte Esterase Urine WBC (Auto) Urine RBC (Auto) Hyaline Casts Stool Occult Blood Negative Urine Opiates Screen Urine Methadone Screen Ur Barbiturates Screen Ur Phencyclidine Scrn Ur Amphetamines Screen U Benzodiazepines Scrn U Oth Cocaine Metabols U Cannabinoids Screen Alcohol, Quantitative Blood Type Antibody Screen 01/04/18 01/04/18 01/04/18 15:43 15:57 20:23 WBC RBC Hgb Hct MCV MCH MCHC RDW Plt Count MPV Neut % (Auto) Lymph % (Auto) Floyd % (Auto) Eos % (Auto) Baso % (Auto) Neut # (Auto) Lymph # (Auto) Floyd # (Auto) Eos # (Auto) Baso # (Auto) Smear Path Review Retic Count Haptoglobin PT INR APTT pO2 22 L VBG pH 7.42 VBG pCO2 35 L VBG HCO3 22.3 VBG Total CO2 23.8 VBG Base Excess -1.3 L VBG Potassium 1.3 L* Glucose 120 H Lactate 8.2 H* Crit Value Called To Rah ritchie rn Crit Value Called By Karen Crit Value Read Back Y Blood Gas Notified Time 1602 Sodium 129.0 L 127 L Potassium 4.1 Chloride 89.0 L 86 L Carbon Dioxide 22 Anion Gap 23 H BUN 40 H Creatinine 2.4 H Est GFR ( Amer) 35 Est GFR (Non-Af Amer) 29 POC Glucose (mg/dL) Random Glucose 172 H Lactic Acid Calcium 6.2 L Phosphorus 4.0 Magnesium 1.8 Iron TIBC % Saturation Transferrin Ferritin Total Bilirubin AST ALT Alkaline Phosphatase Ammonia 64 H D Total Protein Albumin Globulin Albumin/Globulin Ratio Lipase Venous Blood Potassium 1.3 L* Urine Color Urine Clarity Urine pH Ur Specific [place] Urine Protein Urine Glucose (UA) Urine Ketones Urine Blood Urine Nitrate Urine Bilirubin Urine Urobilinogen Ur Leukocyte Esterase Urine WBC (Auto) Urine RBC (Auto) Hyaline Casts Stool Occult Blood Urine Opiates Screen Urine Methadone Screen Ur Barbiturates Screen Ur Phencyclidine Scrn Ur Amphetamines Screen U Benzodiazepines Scrn U Oth Cocaine Metabols U Cannabinoids Screen Alcohol, Quantitative Blood Type Antibody Screen 01/04/18 01/05/18 01/05/18 20:23 00:22 00:28 WBC RBC Hgb Hct MCV MCH MCHC RDW Plt Count MPV Neut % (Auto) Lymph % (Auto) Floyd % (Auto) Eos % (Auto) Baso % (Auto) Neut # (Auto) Lymph # (Auto) Floyd # (Auto) Eos # (Auto) Baso # (Auto) Smear Path Review Retic Count Haptoglobin PT INR APTT pO2 VBG pH VBG pCO2 VBG HCO3 VBG Total CO2 VBG Base Excess VBG Potassium Glucose Lactate Crit Value Called To Crit Value Called By Crit Value Read Back Blood Gas Notified Time Sodium Potassium Chloride Carbon Dioxide Anion Gap BUN Creatinine Est GFR ( Amer) Est GFR (Non-Af Amer) POC Glucose (mg/dL) 175 H Random Glucose Lactic Acid 5.3 H* 2.0 Calcium Phosphorus Magnesium Iron TIBC % Saturation Transferrin Ferritin Total Bilirubin AST ALT Alkaline Phosphatase Ammonia Total Protein Albumin Globulin Albumin/Globulin Ratio Lipase Venous Blood Potassium Urine Color Urine Clarity Urine pH Ur Specific [place] Urine Protein Urine Glucose (UA) Urine Ketones Urine Blood Urine Nitrate Urine Bilirubin Urine Urobilinogen Ur Leukocyte Esterase Urine WBC (Auto) Urine RBC (Auto) Hyaline Casts Stool Occult Blood Urine Opiates Screen Urine Methadone Screen Ur Barbiturates Screen Ur Phencyclidine Scrn Ur Amphetamines Screen U Benzodiazepines Scrn U Oth Cocaine Metabols U Cannabinoids Screen Alcohol, Quantitative Blood Type Antibody Screen 01/05/18 01/05/18 01/05/18 05:46 05:56 05:56 WBC RBC Hgb Hct MCV MCH MCHC RDW Plt Count MPV Neut % (Auto) Lymph % (Auto) Floyd % (Auto) Eos % (Auto) Baso % (Auto) Neut # (Auto) Lymph # (Auto) Floyd # (Auto) Eos # (Auto) Baso # (Auto) Smear Path Review Retic Count Haptoglobin PT INR APTT pO2 VBG pH VBG pCO2 VBG HCO3 VBG Total CO2 VBG Base Excess VBG Potassium Glucose Lactate Crit Value Called To Crit Value Called By Crit Value Read Back Blood Gas Notified Time Sodium Potassium Chloride Carbon Dioxide Anion Gap BUN Creatinine Est GFR ( Amer) Est GFR (Non-Af Amer) POC Glucose (mg/dL) 136 H Random Glucose Lactic Acid Calcium Phosphorus Magnesium Iron TIBC % Saturation Transferrin Ferritin Total Bilirubin AST ALT Alkaline Phosphatase Ammonia Total Protein Albumin Globulin Albumin/Globulin Ratio Lipase Venous Blood Potassium Urine Color Di Urine Clarity Clear Urine pH 5.0 Ur Specific [place] 1.010 Urine Protein Negative Urine Glucose (UA) Normal Urine Ketones Negative Urine Blood Negative Urine Nitrate Negative Urine Bilirubin Negative Urine Urobilinogen 4.0 Ur Leukocyte Esterase Neg Urine WBC (Auto) 1 Urine RBC (Auto) 1 Hyaline Casts 0-2 Stool Occult Blood Urine Opiates Screen Negative Urine Methadone Screen Negative Ur Barbiturates Screen Negative Ur Phencyclidine Scrn Negative Ur Amphetamines Screen Negative U Benzodiazepines Scrn Negative U Oth Cocaine Metabols Negative U Cannabinoids Screen Negative Alcohol, Quantitative Blood Type Antibody Screen Assessment & Plan - Assessment and Plan (Free Text) Assessment: This is a 52 year old male with PMHx of Liver Cirrhosis with recurrent ascites, hepatic encephalopathy, ?chronic pancreatitis, with pancreatic insufficiency, Anemia of Chronic Disease admitted for SEVERE Anemia, Hypokalemia. Plan: Neuro: GCS 13 (E4, V4, M5) A: AMS 2/2 Hepatic Encephalopathy GI: A: GIB?? - Hemoglobin 2.9 on admission, no hx of AC use - Stool Occult - negative - PPI Q12 - Continue to monitor A: Liver Cirrhosis - MELD score on admission 32, with Mortality of 53% - Abdominal US to evaluate ascites; if paracentesis is necessary - will wait till INR is within normal range A: Hepatic Encephalopathy - Ammonia <20 on admission - Refrain from Lactulose, Xifaximin - until electrolytes normalize A: Possible Chronic Pancreatitis, Pancreatic insufficiency Previous admission 07/2017: - Per Dr. South, he suspects pancreatic insufficiency as possible cause due to low stool pancreatic elastase and ordered an MRCP which was unable to be obtained due to patient restlessness - Dr. South consulted Dr. Guerrero for evaluation of possible chronic pancreatitis and possible EUS work up * Per Dr. Guerrero, pursue EUS as an outpatient for definitive diagnosis of chronic pancreatitis * Pancreatic enzymes were started with meals (Cholestyramine Resin (Questran) 4 gm PO TIDPC SABINA) and Aldactone increased to 50 mg PO BID by GI team * [place] [address] units TID with meals Previous Admission 07/2017 - Endoscopy (07/28): small hiatal hernia, patchy mild inflammation in gastric antrum biopsies, scalloped mucosa found in duodenum, suspicious for celiac disease- biopsied; Biopsy: Benign - Colonoscopy (07/28): internal hemorrhoids, mucosal nodule in the sigmoid colon , in transverse colon and in the ascending colon- biopsied; Biopsy; benign Renal: A: Electrolyte imbalance - Hypokalemia 1.4 on admission - Aggresively replenishing all electrolytes Heme/ Onc: A: Anemia of chronic disease - Concern for GIB - Likely also 2/2 bone supression from ETOH - Baseline hemoglobin 8s - 2.9 on admission - Will receive total 3 units PRBCs, 2 FFP - Continue to monitor A: Coagulopathy - INR - 2.3 - Vitamin K - FFP x 2 - Continue to monitor Psych: A: ETOH Abuse - Will receive MV, thiamine, folic IV then PO once patient is not NPO - Alcohol level 25 on admission - Ativan PRN Prophylaxis - Protonix Q12 - SCDs, VTE c/i - As per previous admission: DNR/DNI after palliative care discussion 07/2017. POLST form was filled out during that admission. - PT eval, speech, and swallow eval DW Dr. Shepard, Ghazala Diane DO, PGY-1 <Purnima Shepard V - Last Filed: 01/05/18 09:58> Results - Vital Signs Recent Vital Signs: Last Vital Signs Temp 97.9 F 01/05/18 05:57 Pulse 93 H 01/05/18 07:04 Resp 14 01/05/18 07:04 BP 102/64 01/05/18 07:04 Pulse Ox 97 01/05/18 07:04 - Labs Result Diagrams: 01/05/18 07:53 01/05/18 07:53 Labs: Laboratory Results - last 24 hr 01/04/18 01/04/18 01/04/18 12:29 12:29 12:52 WBC RBC Hgb Hct MCV MCH MCHC RDW Plt Count MPV Neut % (Auto) Lymph % (Auto) Floyd % (Auto) Eos % (Auto) Baso % (Auto) Neut # (Auto) Lymph # (Auto) Floyd # (Auto) Eos # (Auto) Baso # (Auto) Smear Path Review Retic Count Haptoglobin PT 24.7 H INR 2.3 APTT 32 pO2 VBG pH VBG pCO2 VBG HCO3 VBG Total CO2 VBG Base Excess VBG Potassium Glucose Lactate Crit Value Called To Crit Value Called By Crit Value Read Back Blood Gas Notified Time Sodium Potassium Chloride Carbon Dioxide Anion Gap BUN Creatinine Est GFR ( Amer) Est GFR (Non-Af Amer) POC Glucose (mg/dL) 152 H Random Glucose Lactic Acid Calcium Phosphorus Magnesium Iron TIBC % Saturation Transferrin Ferritin Total Bilirubin AST ALT Alkaline Phosphatase Ammonia 15 D Total Protein Albumin Globulin Albumin/Globulin Ratio Lipase Venous Blood Potassium Urine Color Urine Clarity Urine pH Ur Specific [place] Urine Protein Urine Glucose (UA) Urine Ketones Urine Blood Urine Nitrate Urine Bilirubin Urine Urobilinogen Ur Leukocyte Esterase Urine WBC (Auto) Urine RBC (Auto) Hyaline Casts Stool Occult Blood Urine Opiates Screen Urine Methadone Screen Ur Barbiturates Screen Ur Phencyclidine Scrn Ur Amphetamines Screen U Benzodiazepines Scrn U Oth Cocaine Metabols U Cannabinoids Screen Alcohol, Quantitative Blood Type Antibody Screen 01/04/18 01/04/18 01/04/18 13:22 13:22 13:24 WBC 12.3 H D RBC 0.87 L Hgb 2.3 L* D Hct 6.6 L MCV 75.9 L D MCH 27.0 MCHC 35.5 RDW 20.0 H Plt Count 173 MPV 8.3 Neut % (Auto) 82.0 H Lymph % (Auto) 10.4 L [place] % (Auto) 7.4 Eos % (Auto) 0.0 Baso % (Auto) 0.2 Neut # (Auto) 10.0 H Lymph # (Auto) 1.3 Floyd # (Auto) 0.9 H Eos # (Auto) 0.0 Baso # (Auto) 0.0 Smear Path Review Retic Count Haptoglobin PT INR APTT pO2 22 L VBG pH 7.46 H VBG pCO2 34 L VBG HCO3 24.0 VBG Total CO2 25.2 VBG Base Excess 0.8 VBG Potassium 1.1 L* Glucose 133 H Lactate 9.2 H* Crit Value Called To Dr.ho barber Crit Value Called By Bita quiles,rt Crit Value Read Back Y Blood Gas Notified Time 1350 Sodium 125 L 126.0 L Potassium 1.4 L* D Chloride 79 L 84.0 L Carbon Dioxide 21 L Anion Gap 27 H BUN 49 H Creatinine 2.9 H Est GFR ( Amer) 28 Est GFR (Non-Af Amer) 23 POC Glucose (mg/dL) Random Glucose 132 H Lactic Acid Calcium 7.5 L Phosphorus 2.4 L Magnesium 1.2 L Iron TIBC % Saturation Transferrin Ferritin Total Bilirubin 5.4 H AST 126 H D ALT 26 Alkaline Phosphatase 127 H Ammonia Total Protein 7.3 Albumin 3.0 L D Globulin 4.3 H Albumin/Globulin Ratio 0.7 L Lipase 317 H Venous Blood Potassium 1.1 L* Urine Color Urine Clarity Urine pH Ur Specific [place] Urine Protein Urine Glucose (UA) Urine Ketones Urine Blood Urine Nitrate Urine Bilirubin Urine Urobilinogen Ur Leukocyte Esterase Urine WBC (Auto) Urine RBC (Auto) Hyaline Casts Stool Occult Blood Urine Opiates Screen Urine Methadone Screen Ur Barbiturates Screen Ur Phencyclidine Scrn Ur Amphetamines Screen U Benzodiazepines Scrn U Oth Cocaine Metabols U Cannabinoids Screen Alcohol, Quantitative 25 H Blood Type Antibody Screen 01/04/18 01/04/18 01/04/18 14:10 14:10 14:10 WBC 10.5 RBC 1.05 L Hgb 2.9 L* Hct 8.0 L MCV 76.1 L MCH 27.8 MCHC 36.5 RDW 19.5 H Plt Count 142 MPV 8.5 Neut % (Auto) 82.7 H Lymph % (Auto) 11.3 L [place] % (Auto) 5.8 Eos % (Auto) 0.0 Baso % (Auto) 0.2 Neut # (Auto) 8.7 H Lymph # (Auto) 1.2 Floyd # (Auto) 0.6 Eos # (Auto) 0.0 Baso # (Auto) 0.0 Smear Path Review Retic Count 0.1 L D Haptoglobin PT INR APTT pO2 VBG pH VBG pCO2 VBG HCO3 VBG Total CO2 VBG Base Excess VBG Potassium Glucose Lactate Crit Value Called To Crit Value Called By Crit Value Read Back Blood Gas Notified Time Sodium Potassium Chloride Carbon Dioxide Anion Gap BUN Creatinine Est GFR ( Amer) Est GFR (Non-Af Amer) POC Glucose (mg/dL) Random Glucose Lactic Acid Calcium Phosphorus Magnesium Iron 104 TIBC 171 L % Saturation 61 H Transferrin Ferritin Total Bilirubin AST ALT Alkaline Phosphatase Ammonia Total Protein Albumin Globulin Albumin/Globulin Ratio Lipase Venous Blood Potassium Urine Color Urine Clarity Urine pH Ur Specific [place] Urine Protein Urine Glucose (UA) Urine Ketones Urine Blood Urine Nitrate Urine Bilirubin Urine Urobilinogen Ur Leukocyte Esterase Urine WBC (Auto) Urine RBC (Auto) Hyaline Casts Stool Occult Blood Urine Opiates Screen Urine Methadone Screen Ur Barbiturates Screen Ur Phencyclidine Scrn Ur Amphetamines Screen U Benzodiazepines Scrn U Oth Cocaine Metabols U Cannabinoids Screen Alcohol, Quantitative Blood Type O POSITIVE Antibody Screen Negative 01/04/18 01/04/18 01/04/18 14:10 14:12 14:30 WBC RBC Hgb Hct MCV MCH MCHC RDW Plt Count MPV Neut % (Auto) Lymph % (Auto) [place] % (Auto) Eos % (Auto) Baso % (Auto) Neut # (Auto) Lymph # (Auto) Floyd # (Auto) Eos # (Auto) Baso # (Auto) Smear Path Review Retic Count Haptoglobin 199.3 PT INR APTT pO2 VBG pH VBG pCO2 VBG HCO3 VBG Total CO2 VBG Base Excess VBG Potassium Glucose Lactate Crit Value Called To Crit Value Called By Crit Value Read Back Blood Gas Notified Time Sodium 127 L Potassium 1.5 L* Chloride 81 L Carbon Dioxide 21 L Anion Gap 26 H BUN 46 H Creatinine 2.9 H Est GFR ( Amer) 28 Est GFR (Non-Af Amer) 23 POC Glucose (mg/dL) Random Glucose 121 H Lactic Acid Calcium 7.5 L Phosphorus Magnesium Iron TIBC % Saturation Transferrin 90.05 L Ferritin 1460.0 Total Bilirubin 5.6 H AST 124 H ALT 30 Alkaline Phosphatase 115 Ammonia Total Protein 7.0 Albumin 2.9 L Globulin 4.1 H Albumin/Globulin Ratio 0.7 L Lipase Venous Blood Potassium Urine Color Urine Clarity Urine pH Ur Specific [place] Urine Protein Urine Glucose (UA) Urine Ketones Urine Blood Urine Nitrate Urine Bilirubin Urine Urobilinogen Ur Leukocyte Esterase Urine WBC (Auto) Urine RBC (Auto) Hyaline Casts Stool Occult Blood Negative Urine Opiates Screen Urine Methadone Screen Ur Barbiturates Screen Ur Phencyclidine Scrn Ur Amphetamines Screen U Benzodiazepines Scrn U Oth Cocaine Metabols U Cannabinoids Screen Alcohol, Quantitative Blood Type Antibody Screen 01/04/18 01/04/18 01/04/18 15:43 15:57 20:23 WBC RBC Hgb Hct MCV MCH MCHC RDW Plt Count MPV Neut % (Auto) Lymph % (Auto) [place] % (Auto) Eos % (Auto) Baso % (Auto) Neut # (Auto) Lymph # (Auto) Floyd # (Auto) Eos # (Auto) Baso # (Auto) Smear Path Review Retic Count Haptoglobin PT INR APTT pO2 22 L VBG pH 7.42 VBG pCO2 35 L VBG HCO3 22.3 VBG Total CO2 23.8 VBG Base Excess -1.3 L VBG Potassium 1.3 L* Glucose 120 H Lactate 8.2 H* Crit Value Called To Rah ritchie rn Crit Value Called By Karen Crit Value Read Back Y Blood Gas Notified Time 1602 Sodium 129.0 L 127 L Potassium 4.1 Chloride 89.0 L 86 L Carbon Dioxide 22 Anion Gap 23 H BUN 40 H Creatinine 2.4 H Est GFR ( Amer) 35 Est GFR (Non-Af Amer) 29 POC Glucose (mg/dL) Random Glucose 172 H Lactic Acid Calcium 6.2 L Phosphorus 4.0 Magnesium 1.8 Iron TIBC % Saturation Transferrin Ferritin Total Bilirubin AST ALT Alkaline Phosphatase Ammonia 64 H D Total Protein Albumin Globulin Albumin/Globulin Ratio Lipase Venous Blood Potassium 1.3 L* Urine Color Urine Clarity Urine pH Ur Specific [place] Urine Protein Urine Glucose (UA) Urine Ketones Urine Blood Urine Nitrate Urine Bilirubin Urine Urobilinogen Ur Leukocyte Esterase Urine WBC (Auto) Urine RBC (Auto) Hyaline Casts Stool Occult Blood Urine Opiates Screen Urine Methadone Screen Ur Barbiturates Screen Ur Phencyclidine Scrn Ur Amphetamines Screen U Benzodiazepines Scrn U Oth Cocaine Metabols U Cannabinoids Screen Alcohol, Quantitative Blood Type Antibody Screen 01/04/18 01/05/18 01/05/18 20:23 00:22 00:28 WBC RBC Hgb Hct MCV MCH MCHC RDW Plt Count MPV Neut % (Auto) Lymph % (Auto) Floyd % (Auto) Eos % (Auto) Baso % (Auto) Neut # (Auto) Lymph # (Auto) Floyd # (Auto) Eos # (Auto) Baso # (Auto) Smear Path Review Retic Count Haptoglobin PT INR APTT pO2 VBG pH VBG pCO2 VBG HCO3 VBG Total CO2 VBG Base Excess VBG Potassium Glucose Lactate Crit Value Called To Crit Value Called By Crit Value Read Back Blood Gas Notified Time Sodium Potassium Chloride Carbon Dioxide Anion Gap BUN Creatinine Est GFR ( Amer) Est GFR (Non-Af Amer) POC Glucose (mg/dL) 175 H Random Glucose Lactic Acid 5.3 H* 2.0 Calcium Phosphorus Magnesium Iron TIBC % Saturation Transferrin Ferritin Total Bilirubin AST ALT Alkaline Phosphatase Ammonia Total Protein Albumin Globulin Albumin/Globulin Ratio Lipase Venous Blood Potassium Urine Color Urine Clarity Urine pH Ur Specific [place] Urine Protein Urine Glucose (UA) Urine Ketones Urine Blood Urine Nitrate Urine Bilirubin Urine Urobilinogen Ur Leukocyte Esterase Urine WBC (Auto) Urine RBC (Auto) Hyaline Casts Stool Occult Blood Urine Opiates Screen Urine Methadone Screen Ur Barbiturates Screen Ur Phencyclidine Scrn Ur Amphetamines Screen U Benzodiazepines Scrn U Oth Cocaine Metabols U Cannabinoids Screen Alcohol, Quantitative Blood Type Antibody Screen 01/05/18 01/05/18 01/05/18 05:46 05:56 05:56 WBC RBC Hgb Hct MCV MCH MCHC RDW Plt Count MPV Neut % (Auto) Lymph % (Auto) Floyd % (Auto) Eos % (Auto) Baso % (Auto) Neut # (Auto) Lymph # (Auto) Floyd # (Auto) Eos # (Auto) Baso # (Auto) Smear Path Review Retic Count Haptoglobin PT INR APTT pO2 VBG pH VBG pCO2 VBG HCO3 VBG Total CO2 VBG Base Excess VBG Potassium Glucose Lactate Crit Value Called To Crit Value Called By Crit Value Read Back Blood Gas Notified Time Sodium Potassium Chloride Carbon Dioxide Anion Gap BUN Creatinine Est GFR ( Amer) Est GFR (Non-Af Amer) POC Glucose (mg/dL) 136 H Random Glucose Lactic Acid Calcium Phosphorus Magnesium Iron TIBC % Saturation Transferrin Ferritin Total Bilirubin AST ALT Alkaline Phosphatase Ammonia Total Protein Albumin Globulin Albumin/Globulin Ratio Lipase Venous Blood Potassium Urine Color Di Urine Clarity Clear Urine pH 5.0 Ur Specific [place] 1.010 Urine Protein Negative Urine Glucose (UA) Normal Urine Ketones Negative Urine Blood Negative Urine Nitrate Negative Urine Bilirubin Negative Urine Urobilinogen 4.0 Ur Leukocyte Esterase Neg Urine WBC (Auto) 1 Urine RBC (Auto) 1 Hyaline Casts 0-2 Stool Occult Blood Urine Opiates Screen Negative Urine Methadone Screen Negative Ur Barbiturates Screen Negative Ur Phencyclidine Scrn Negative Ur Amphetamines Screen Negative U Benzodiazepines Scrn Negative U Oth Cocaine Metabols Negative U Cannabinoids Screen Negative Alcohol, Quantitative Blood Type Antibody Screen 01/05/18 01/05/18 01/05/18 07:53 07:53 07:53 WBC 9.2 RBC 2.25 L Hgb 6.5 L* D Hct 17.9 L MCV 79.9 L D MCH 29.1 MCHC 36.5 RDW 17.0 H Plt Count 103 L D MPV 7.7 Neut % (Auto) 87.1 H Lymph % (Auto) 8.8 L Floyd % (Auto) 3.8 Eos % (Auto) 0.1 Baso % (Auto) 0.2 Neut # (Auto) 8.0 H Lymph # (Auto) 0.8 L Floyd # (Auto) 0.4 Eos # (Auto) 0.0 Baso # (Auto) 0.0 Smear Path Review Retic Count Haptoglobin PT INR APTT pO2 VBG pH VBG pCO2 VBG HCO3 VBG Total CO2 VBG Base Excess VBG Potassium Glucose Lactate Crit Value Called To Crit Value Called By Crit Value Read Back Blood Gas Notified Time Sodium 129 L Potassium 2.7 L Chloride 90 L Carbon Dioxide 26 Anion Gap 15 BUN 45 H Creatinine 2.5 H Est GFR ( Amer) 33 Est GFR (Non-Af Amer) 27 POC Glucose (mg/dL) Random Glucose 173 H Lactic Acid 1.8 Calcium 7.3 L Phosphorus 1.2 L Magnesium 1.9 Iron TIBC % Saturation Transferrin Ferritin Total Bilirubin 7.8 H AST 107 H ALT 29 Alkaline Phosphatase 103 Ammonia Total Protein 6.6 Albumin 2.8 L Globulin 3.8 Albumin/Globulin Ratio 0.7 L Lipase Venous Blood Potassium Urine Color Urine Clarity Urine pH Ur Specific [place] Urine Protein Urine Glucose (UA) Urine Ketones Urine Blood Urine Nitrate Urine Bilirubin Urine Urobilinogen Ur Leukocyte Esterase Urine WBC (Auto) Urine RBC (Auto) Hyaline Casts Stool Occult Blood Urine Opiates Screen Urine Methadone Screen Ur Barbiturates Screen Ur Phencyclidine Scrn Ur Amphetamines Screen U Benzodiazepines Scrn U Oth Cocaine Metabols U Cannabinoids Screen Alcohol, Quantitative Blood Type Antibody Screen Assessment & Plan (1) Hepatic encephalopathy Status: Acute (2) Hypomagnesemia Status: Acute (3) Liver cirrhosis Status: Acute (4) Alcohol abuse Status: Acute (5) Abdominal pain Status: Acute (6) Anemia Status: Acute (7) Ascites Status: Acute (8) Hypokalemia Status: Acute (9) DNR (do not resuscitate) Status: Acute (10) DNI (do not intubate) Status: Acute (11) Prophylactic measure Status: Acute Attending/Attestation - Attestation I have personally seen and examined this patient.: Yes I have fully participated in the care of the patient.: Yes I have reviewed all pertinent clinical information: Yes Notes (Text): This is late computer entry for 01/04/18. Patient seen, examined, and case discussed in the Bed 4 in the ED with ICU. Please note details in my progress note from 01/04/18. I spoke with patient's friend in [facility] via telephone who brought in the patient; he will be coming in tomorrow. Patient is confused with Dr. Mari, attempting to speak Martha to the patient at bedside. Patient admitted to the ICU. Further management per ICU. Patient ordered for PRBC/FFP/K+/MG2+ repletion Assessment/Plan (1) Hepatic encephalopathy Alcoholic Liver Cirrhosis Ascites Lactic Acidosis Status: Acute * Patient admitted to the ICU 01/04/18 * Prior imaging: * CT abd/pelvis with IV contrast 07/17: Significant bowel wall thickening involving the colon, appearance most consistent with acute colitis, cannot exclude underlying neoplasm. Small to moderate ascites. Fatty infiltration of the liver. Heterogeneous appearance to hepatic parenchyma. Some of appearance may be due to transient hepatic attenuation differences, concern for underlying lesion. * Endoscopy (07/28): small hiatal hernia, patchy mild inflammation in gastric antrum biopsies, scalloped mucosa found in duodenum, suspicious for celiac disease- biopsied; Biopsy: chemical gastritis, otherwise benign * Colonoscopy (07/28): internal hemorrhoids, mucosal nodule in the sigmoid colon , in transverse colon and in the ascending colon- biopsied; Biopsy: ascending colon edema, transverse colon and @20cm with edema and vascular ectasia * Lactic acid: 9.2--> 8.2 * Elevated anion gap (2) Hypomagnesemia Status: Acute * Ordered for repletion (3) Liver cirrhosis Status: Chronic * Abdominal US (01/04/18): pending (4) Alcohol abuse Status: Acute * Elevated on admission; drinking alcohol daily; friend reports he saw alcohol bottles in the house (5) Anemia Status: Acute * When I spoke with friend on admission, he received a call from friend telling him that he needs to go hospital. He brought him in to the hospital the following day. Reports saw alcohol bottle. * Aug 2017: hgb: 7---> 2.3/2.6 * Patient is ordered for PRBC and FFP transfusion (7) Ascites Status: Acute * likely secondary to alcoholic liver disease * Ordered for Abdominal US (8) Hypokalemia Status: Acute * Low (1.4)-->repletion ordered (9) DNR (do not resuscitate) Status: Acute * Patient has prior POLST from last hospitalization (10) DNI (do not intubate) Status: Acute * Patient has prior POLST from last hospitalization (11) Acute Renal Insuffiency Hepatorenal disease suspected Status: Acute * monitor BUN/Cr (12) Prophylactic measure Status: Acute * Chemical contraindication secondary to anemia/elevated INR * POLST: DNR/DNI last hospitalization * Luis Peng [phone] Patient's Friend-->who brought him in; friendship >20 years and involved in case also noted in last admission.
[2018-01-05 08:01] LABS: BASO % 0.2 % (0.0-2.0); EOS % 0.1 % (0.0-4.0); LYMPH # 0.8 K/uL (1.0-4.3); LYMPH % 8.8 % (20.0-40.0); MEAN CORPUSCULAR HEMOGLOBIN 29.1 pg (27.0-31.0); MEAN CORPUSCULAR HGB CONC 36.5 g/dL (33.0-37.0); MEAN PLATELET VOLUME 7.7 fL (7.2-11.7); MONO # 0.4 K/uL (0.0-0.8); MONO % 3.8 % (0.0-10.0); NEUT % 87.1 % (50.0-75.0); NRBC % 0.1 % (0.0-2.0); RBC 2.25 Mil/uL (4.40-5.90); WHITE BLOOD COUNT 9.2 K/uL (4.8-10.8)
[2018-01-05 08:08] LABS: HEMOGLOBIN 6.5 g/dL (12.0-18.0); MEAN CELL VOLUME 79.9 fL (80.0-94.0); PLATELET COUNT 103 K/uL (130-400)
[2018-01-05 08:48] LABS: ALB/GLOB RATIO 0.7 (1.0-2.1); ALBUMIN 2.8 g/dL (3.5-5.0); CALCIUM 7.3 mg/dl (8.6-10.4)
--- NOTE | 2018-01-05 09:25 | CP.PCM.PN ---
Subjective - Date & Time of Evaluation Date of Evaluation: 01/05/18 Time of Evaluation: 09:20 - Subjective Subjective: Medical Attending Note: Patient seen and examined. Patient's RN, Isa Turcios assisting in translation in Gujarati. Patient reports he is from [facility], he knows he lives in [place], he reports he was brought in by his friend, Luis, and able to state his correct birthdate and he knows the President is Raji. He reports his life left him and is in [place] and children are in [place]. He wants his friend Luis involved in his care. Patient reports he came he because he was unable to get up for one day and reports he drinks Bacardi daily. Patient reports his stools have been dark colored and sometimes he spits up blood. He reports the consistency was water. Patient overnight has received 3PRBC and 2 FFP. Potassium and magnesium repleted overnight. CBC drawn this morning 1 hour after transfusion were done. Will order for CBC at 11 to see H/H level. Objective - Vital Signs/Intake and Output Vital Signs (last 24 hours): Temp Pulse Resp BP Pulse Ox 97.9 F 93 H 14 102/64 97 01/05/18 05:57 01/05/18 07:04 01/05/18 07:04 01/05/18 07:04 01/05/18 07:04 Intake and Output: 01/05/18 01/05/18 06:59 18:59 Intake Total 1610 100 Output Total 200 0 Balance 1410 100 - Medications Medications: Current Medications Dextrose (Dextrose 50% Inj) 0 ml IV STAT PRN; Protocol PRN Reason: Hypoglycemia Protocol Dextrose (Glutose 15) 0 gm PO ONCE PRN; Protocol PRN Reason: Hypoglycemia Protocol Glucagon (Glucagen Diagnostic Kit) 0 mg IM STAT PRN; Protocol PRN Reason: Hypoglycemia Protocol Multivitamins/Vitamin C 10 ml/Thiamine HCl 100 mg/ Folic Acid 1 mg/ Dextrose 1, 011.2 mls @ 100 mls/hr IV Q24H ON LICENSE OF [facility] Last Admin: 01/05/18 06:01 Dose: 100 mls/hr Potassium Chloride 40 meq/ (Sodium Chloride) 1,020 mls @ 100 mls/hr IV .[id number] ON LICENSE OF [facility] Last Admin: 01/05/18 03:50 Dose: Not Given Dextrose (Dextrose 5% In Water 1000 Ml) 1,000 mls @ 0 mls/hr IV .Q0M PRN; Protocol; Per Protocol PRN Reason: Hypoglycemia Protocol Insulin Human Regular (Novolin R) 0 unit SC Q6H SABINA PRN Reason: Protocol Last Admin: 01/05/18 05:47 Dose: Not Given Lorazepam (Ativan) 1 mg IVP Q4H PRN PRN Reason: Symptoms of alcohol withdrawl Pantoprazole Sodium (Protonix Inj) 40 mg IVP Q12H ON LICENSE OF [facility] Last Admin: 01/04/18 21:24 Dose: 40 mg - Labs Labs: 01/05/18 07:53 01/05/18 07:53 PT 24.7 SECONDS (9.7-12.2) H 01/04/18 12:29 INR 2.3 01/04/18 12:29 APTT 32 SECONDS (21-34) 01/04/18 12:29 - Constitutional Appears: Cachectic, Chronically Ill, Other (jaundice) - Head Exam Head Exam: NORMAL INSPECTION - Eye Exam Eye Exam: EOMI, PERRL, Scleral icterus - ENT Exam ENT Exam: Mucous Membranes Moist - Respiratory Exam Respiratory Exam: Decreased Breath Sounds, Rales, NORMAL BREATHING PATTERN - Cardiovascular Exam Cardiovascular Exam: REGULAR RHYTHM, +S1, +S2 - GI/Abdominal Exam GI & Abdominal Exam: Distended, Guarding, Soft, Tenderness (to palpation with stethoscope), Hypoactive Bowel Sounds, Rebound. absent: Firm, Rigid - Extremities Exam Extremities Exam: absent: Pedal Edema, Tenderness - Back Exam Back Exam: absent: CVA tenderness (L), CVA tenderness (R) - Neurological Exam Neurological Exam: Alert, Awake, Oriented x3 Neuro motor strength exam: Left Upper Extremity: 5, Right Upper Extremity: 5, Left Lower Extremity: 5, Right Lower Extremity: 5 - Skin Skin Exam: Dry, Intact, Warm Assessment and Plan (1) Hepatic encephalopathy Status: Acute (2) Hypomagnesemia Status: Acute (3) Liver cirrhosis Status: Acute (4) Alcohol abuse Status: Acute (5) Abdominal pain Status: Acute (6) Anemia Status: Acute (7) Ascites Status: Acute (8) Hypokalemia Status: Acute (9) DNR (do not resuscitate) Status: Acute (10) DNI (do not intubate) Status: Acute (11) Prophylactic measure Status: Acute Attending/Attestation - Attestation I have personally seen and examined this patient.: Yes I have fully participated in the care of the patient.: Yes I have reviewed all pertinent clinical information, including history, physical exam and plan: Yes Notes (Text): (1) Hepatic encephalopathy Alcoholic Liver Cirrhosis Ascites Lactic Acidosis Possible GI bleed Status: Acute * 01/05: patient seen this morning with assistance with Traece nurse this morning. Patient is oriented compared to how Earlene seen him this morning. * Patient continues to drink likely alcoholic liver cirrhosis. Patient had an extensive workup in Jul-Aug 2017 which he was last in the hospital. * Patient has completed 3 PRBC and 2 FFP overnight. Patient will be getting 1 more unit of PRBC this morning. There will be post-transfusion CBC today. I have asked the nurse to draw INR and ammonia level as well. Patient admits to us today he has been having dark colored stools and coughing up blood. * Prior imaging: * CT abd/pelvis with IV contrast 07/17: Significant bowel wall thickening involving the colon, appearance most consistent with acute colitis, cannot exclude underlying neoplasm. Small to moderate ascites. Fatty infiltration of the liver. Heterogeneous appearance to hepatic parenchyma. Some of appearance may be due to transient hepatic attenuation differences, concern for underlying lesion. * Endoscopy (07/28): small hiatal hernia, patchy mild inflammation in gastric antrum biopsies, scalloped mucosa found in duodenum, suspicious for celiac disease- biopsied; Biopsy: chemical gastritis, otherwise benign * Colonoscopy (07/28): internal hemorrhoids, mucosal nodule in the sigmoid colon , in transverse colon and in the ascending colon- biopsied; Biopsy: ascending colon edema, transverse colon and @20cm with edema and vascular ectasia * Lactic acid: 9.2--> 8.2-->5.3-->2.0-->1.8 * Elevated anion gap has normalized (2) Hypomagnesemia Status: Acute * 01/05: repleted and normalized (3) Liver cirrhosis Status: Chronic * Abdominal US (01/04/18): pending (4) Alcohol abuse Status: Acute * 01/05: elevated on admission; drinking alcohol daily; admits to it (5) Abdominal pain Status: Acute * Will need to repeat CT scan (6) Anemia Status: Acute * 01/05: patient admits to today he has been having dark stools and coughing up small blood. * Aug 2017: hgb: 7---> 2.3/2.6--->6.5 (3 units of PRBC and FFP) (7) Ascites Status: Acute * likely secondary to alcoholic liver disease * awaiting official report of abdominal US (8) Hypokalemia Status: Acute * 01/05: repleted but low (9) DNR (do not resuscitate) Status: Acute * Patient has prior POLST from last hospitalization (10) DNI (do not intubate) Status: Acute * Patient has prior POLST from last hospitalization (11) Acute Renal Insuffiency Hepatorenal disease suspected Status: Acute * monitor BUN/Cr (12) Thrombocytopenia Status: Acute * Chemical contraindication secondary to GI bleed/anemia/elevated INR * Suspected secondary alcohol liver disease * pending renal disease (13) Prophylactic measure Status: Acute * Chemical contraindication secondary to GI bleed/anemia/elevated INR * POLST: DNR/DNI last hospitalization * Luis Peng [phone] Patient's Friend-->who brought him in; friendship >20 years and involved in case also noted in last admission. Attending/Attestation
[2018-01-05] MEDS ORDERED: Potassium Phosphate 15 MMOLE in Sodium Chloride 0.9% 250 ML IVPB ONE ×2 (09:34→17:05)
[2018-01-05] MEDS ORDERED: Potassium Chloride 20 mEq ER Tab PO SCH (09:45)
[2018-01-05] MEDS ORDERED: Multivitamin (MVI) 10 ML, Thiamine 100 MG, Folic Acid 1 MG in Dextrose 5% In Water 1,00... IV SCH ×2 (10:00→13:44)
[2018-01-05 10:06] LABS: ANISOCYTOSIS SLIGHT; BANDS 3 % (0-2); HYPOCHROMIC SLIGHT; LYMPHOCYTE 9 % (20-40); MONOCYTE 2 % (0-10); NEUTROPHIL 86 % (50-75); PLATELET ESTIMATE DECREASED (NORMAL); TARGET CELLS MODERATE; TOTAL CELLS COUNTED 100
[2018-01-05 10:48] LABS: INR 1.9; PROTHROMBIN TIME 21.1 SECONDS (9.7-12.2)
[2018-01-05] MEDS: cefTRIAXone IV 1 gm in Dextros 50 ML IVPB SCH (10:52)
[2018-01-05] MEDS: Potassium & Sodium Phosphate PO SCH ×2 (10:56→14:30)
[2018-01-05] MEDS: LIPASE/PROTEASE/AMYLASE 21,000 U ECC PO SCH ×3 (10:57→17:24)
--- NOTE | 2018-01-05 11:03 | CP.PCM.CON ---
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 Pt was found to have hemoglobin of 2.9 and potassium of 1.4 on admission. Per the primary ICU team pt was very confused yesterday with significant improvement today and now he is AAOx3. Pt is s/p3U PRBCs, 2UFFP. No active GI bleeding notes, no melena, hematochezia or hematemesis. Pt reports he is an active drinker and last drink was prior to arrival. pt is noncompliance with medications and is currently not taking any prescription drugs. He also reports abdominal pain and distension and unable to recall last paracentesis. ROS: A 12pt ROS was negative except as above. PmHx: As stated in HPI PsHx: endoscopy (07/28/17); colonoscopy (07/28/17)-negative for esophageal varices , gastritis, benign colonic nodules SHx: alcoholic abuse, heavy drinker since known 1999, tobacco use, denies illicit drugs FHx: Neg for colon or liver disease Past Patient History - Infectious Disease Hx of Infectious Diseases: None - Tetanus Immunizations Tetanus Immunization: Unknown - Past Medical History & Family History Past Medical History?: Yes - Past Social History Smoking Status: Never Smoked - CARDIAC Hx Hypertension: Yes - PULMONARY Hx Respiratory Disorders: No - NEUROLOGICAL Hx Neurological Disorder: No - HEENT Hx HEENT Problems: No - RENAL Hx Chronic Kidney Disease: No - ENDOCRINE/METABOLIC Hx Endocrine Disorders: No - HEMATOLOGICAL/ONCOLOGICAL Hx Blood Disorders: No - INTEGUMENTARY Hx Dermatological Problems: No - MUSCULOSKELETAL/RHEUMATOLOGICAL Hx Musculoskeletal Disorders: No Hx Falls: No - GASTROINTESTINAL Hx Gastrointestinal Disorders: Yes Hx Liver Failure: Yes Other/Comment: LIVER CIRRHOSIS AND ASCITES. - GENITOURINARY/GYNECOLOGICAL Hx Genitourinary Disorders: No - PSYCHIATRIC Hx Substance Use: No - SURGICAL HISTORY Hx Surgeries: No - ANESTHESIA Hx Anesthesia: No Hx Anesthesia Reactions: No Meds Allergies/Adverse Reactions: Allergies Allergy/AdvReac Type Severity Reaction Status Date / Time No Known Allergies Allergy Verified 01/04/18 11:24 - Medications Medications: Current Medications Dextrose (Dextrose 50% Inj) 0 ml IV STAT PRN; Protocol PRN Reason: Hypoglycemia Protocol Dextrose (Glutose 15) 0 gm PO ONCE PRN; Protocol PRN Reason: Hypoglycemia Protocol Glucagon (Glucagen Diagnostic Kit) 0 mg IM STAT PRN; Protocol PRN Reason: Hypoglycemia Protocol Dextrose (Dextrose 5% In Water 1000 Ml) 1,000 mls @ 0 mls/hr IV .Q0M PRN; Protocol; Per Protocol PRN Reason: Hypoglycemia Protocol Potassium Phosphate 15 mmole/ (Sodium Chloride) 255 mls @ 42.5 mls/hr IVPB ONCE ONE Stop: 01/05/18 15:33 Last Admin: 01/05/18 10:54 Dose: 42.5 mls/hr Ceftriaxone Sodium (Rocephin Iv 1 Gm Duplex) 50 mls @ 100 mls/hr IVPB DAILY [facility]INA PRN Reason: Protocol Last Admin: 01/05/18 10:52 Dose: 100 mls/hr Potassium Chloride/Dextrose/Sod Cl (Potassium Chl 20 Meq In D5-1/2ns) 1,000 mls @ 150 mls/hr IV .Q6H40M SABINA Octreotide Acetate 1,250 mcg/ (Sodium Chloride) 252.5 mls @ 10.1 mls/hr SC .Q24H SABINA; 50 MCG/HR PRN Reason: Protocol Pantoprazole Sodium 80 mg/ (Sodium Chloride) 100 mls @ 10 mls/hr IV .Q10H SABINA PRN Reason: 8 MG/HR Multivitamins/Vitamin C 10 ml/Thiamine HCl 100 mg/ Folic Acid 1 mg/ Dextrose 1, 011.2 mls @ 150 mls/hr IV Q24H SABINA Insulin Human Regular (Novolin R) 0 unit SC Q6H SABINA PRN Reason: Protocol Last Admin: 01/05/18 05:47 Dose: Not Given Lorazepam (Ativan) 1 mg IVP Q4H PRN PRN Reason: Symptoms of alcohol withdrawl Potassium Chloride (K-Dur 20 Meq Er Tab) 40 meq PO Q4H SABINA Stop: 01/05/18 21:46 Last Admin: 01/05/18 10:57 Dose: 40 meq Potassium Phos/Sodium Phos (Neutra-Phos) 1 pkt PO Q4H [facility]INA Stop: 01/05/18 13:46 Last Admin: 01/05/18 10:56 Dose: 1 pkt Physical Exam - Constitutional Appears: Non-toxic, No Acute Distress, Older Than Stated Age, Cachectic, Chronically Ill - Head Exam Head Exam: ATRAUMATIC, NORMAL INSPECTION, NORMOCEPHALIC - Eye Exam Eye Exam: EOMI, Normal appearance, PERRL Pupil Exam: PERRL - ENT Exam ENT Exam: Mucous Membranes Dry, Normal Exam - Neck Exam Neck exam: Positive for: Full Rom, Normal Inspection - Respiratory Exam Respiratory Exam: Decreased Breath Sounds, NORMAL BREATHING PATTERN - Cardiovascular Exam Cardiovascular Exam: Tachycardia, +S1, +S2 - GI/Abdominal Exam GI & Abdominal Exam: Distended, Firm, Normal Bowel Sounds, Tenderness. absent: Organomegaly Additional comments: +ascites - Rectal Exam Rectal Exam: NORMAL INSPECTION. absent: Black Stool, Bloody Stool Additional comments: brown stool, no melena or hematochezia - Extremities Exam Extremities exam: Positive for: full ROM - Back Exam Back exam: NORMAL INSPECTION - Neurological Exam Neurological exam: Alert, Oriented x3 - Psychiatric Exam Psychiatric exam: Flat Affect - Skin Skin Exam: Dry, Intact, Normal Color, Warm Results - Vital Signs Recent Vital Signs: Last Vital Signs Temp 97.9 F 01/05/18 10:45 Pulse 98 H 01/05/18 10:45 Resp 17 01/05/18 10:45 BP 98/65 L 01/05/18 10:45 Pulse Ox 97 01/05/18 07:04 - Labs Result Diagrams: 01/05/18 07:53 01/05/18 07:53 Labs: Laboratory Results - last 24 hr 01/04/18 01/04/18 01/04/18 12:29 12:29 12:52 WBC RBC Hgb Hct MCV MCH MCHC RDW Plt Count MPV Neut % (Auto) Lymph % (Auto) [place] % (Auto) Eos % (Auto) Baso % (Auto) Neut # (Auto) Lymph # (Auto) [place] # (Auto) Eos # (Auto) Baso # (Auto) Neutrophils % (Manual) Band Neutrophils % Lymphocytes % (Manual) Monocytes % (Manual) Platelet Estimate Hypochromasia (manual) Anisocytosis (manual) Target Cells Smear Path Review Retic Count Haptoglobin PT 24.7 H INR 2.3 APTT 32 pO2 VBG pH VBG pCO2 VBG HCO3 VBG Total CO2 VBG Base Excess VBG Potassium Glucose Lactate Crit Value Called To Crit Value Called By Crit Value Read Back Blood Gas Notified Time Sodium Potassium Chloride Carbon Dioxide Anion Gap BUN Creatinine Est GFR ( Amer) Est GFR (Non-Af Amer) POC Glucose (mg/dL) 152 H Random Glucose Lactic Acid Calcium Phosphorus Magnesium Iron TIBC % Saturation Transferrin Ferritin Total Bilirubin AST ALT Alkaline Phosphatase Ammonia 15 D Total Protein Albumin Globulin Albumin/Globulin Ratio Lipase Venous Blood Potassium Urine Color Urine Clarity Urine pH Ur Specific Rousseau Urine Protein Urine Glucose (UA) Urine Ketones Urine Blood Urine Nitrate Urine Bilirubin Urine Urobilinogen Ur Leukocyte Esterase Urine WBC (Auto) Urine RBC (Auto) Hyaline Casts Stool Occult Blood Urine Opiates Screen Urine Methadone Screen Ur Barbiturates Screen Ur Phencyclidine Scrn Ur Amphetamines Screen U Benzodiazepines Scrn U Oth Cocaine Metabols U Cannabinoids Screen Alcohol, Quantitative Blood Type Antibody Screen 01/04/18 01/04/18 01/04/18 13:22 13:22 13:24 WBC 12.3 H D RBC 0.87 L Hgb 2.3 L* D Hct 6.6 L MCV 75.9 L D MCH 27.0 MCHC 35.5 RDW 20.0 H Plt Count 173 MPV 8.3 Neut % (Auto) 82.0 H Lymph % (Auto) 10.4 L [place] % (Auto) 7.4 Eos % (Auto) 0.0 Baso % (Auto) 0.2 Neut # (Auto) 10.0 H Lymph # (Auto) 1.3 [place] # (Auto) 0.9 H Eos # (Auto) 0.0 Baso # (Auto) 0.0 Neutrophils % (Manual) Band Neutrophils % Lymphocytes % (Manual) Monocytes % (Manual) Platelet Estimate Hypochromasia (manual) Anisocytosis (manual) Target Cells Smear Path Review Retic Count Haptoglobin PT INR APTT pO2 22 L VBG pH 7.46 H VBG pCO2 34 L VBG HCO3 24.0 VBG Total CO2 25.2 VBG Base Excess 0.8 VBG Potassium 1.1 L* Glucose 133 H Lactate 9.2 H* Crit Value Called To Dr.ho barber Crit Value Called By Bita quiles,rt Crit Value Read Back Y Blood Gas Notified Time 1350 Sodium 125 L 126.0 L Potassium 1.4 L* D Chloride 79 L 84.0 L Carbon Dioxide 21 L Anion Gap 27 H BUN 49 H Creatinine 2.9 H Est GFR ( Amer) 28 Est GFR (Non-Af Amer) 23 POC Glucose (mg/dL) Random Glucose 132 H Lactic Acid Calcium 7.5 L Phosphorus 2.4 L Magnesium 1.2 L Iron TIBC % Saturation Transferrin Ferritin Total Bilirubin 5.4 H AST 126 H D ALT 26 Alkaline Phosphatase 127 H Ammonia Total Protein 7.3 Albumin 3.0 L D Globulin 4.3 H Albumin/Globulin Ratio 0.7 L Lipase 317 H Venous Blood Potassium 1.1 L* Urine Color Urine Clarity Urine pH Ur Specific Rousseau Urine Protein Urine Glucose (UA) Urine Ketones Urine Blood Urine Nitrate Urine Bilirubin Urine Urobilinogen Ur Leukocyte Esterase Urine WBC (Auto) Urine RBC (Auto) Hyaline Casts Stool Occult Blood Urine Opiates Screen Urine Methadone Screen Ur Barbiturates Screen Ur Phencyclidine Scrn Ur Amphetamines Screen U Benzodiazepines Scrn U Oth Cocaine Metabols U Cannabinoids Screen Alcohol, Quantitative 25 H Blood Type Antibody Screen 01/04/18 01/04/18 01/04/18 14:10 14:10 14:10 WBC 10.5 RBC 1.05 L Hgb 2.9 L* Hct 8.0 L MCV 76.1 L MCH 27.8 MCHC 36.5 RDW 19.5 H Plt Count 142 MPV 8.5 Neut % (Auto) 82.7 H Lymph % (Auto) 11.3 L [place] % (Auto) 5.8 Eos % (Auto) 0.0 Baso % (Auto) 0.2 Neut # (Auto) 8.7 H Lymph # (Auto) 1.2 [place] # (Auto) 0.6 Eos # (Auto) 0.0 Baso # (Auto) 0.0 Neutrophils % (Manual) Band Neutrophils % Lymphocytes % (Manual) Monocytes % (Manual) Platelet Estimate Hypochromasia (manual) Anisocytosis (manual) Target Cells Smear Path Review Retic Count 0.1 L D Haptoglobin PT INR APTT pO2 VBG pH VBG pCO2 VBG HCO3 VBG Total CO2 VBG Base Excess VBG Potassium Glucose Lactate Crit Value Called To Crit Value Called By Crit Value Read Back Blood Gas Notified Time Sodium Potassium Chloride Carbon Dioxide Anion Gap BUN Creatinine Est GFR ( Amer) Est GFR (Non-Af Amer) POC Glucose (mg/dL) Random Glucose Lactic Acid Calcium Phosphorus Magnesium Iron 104 TIBC 171 L % Saturation 61 H Transferrin Ferritin Total Bilirubin AST ALT Alkaline Phosphatase Ammonia Total Protein Albumin Globulin Albumin/Globulin Ratio Lipase Venous Blood Potassium Urine Color Urine Clarity Urine pH Ur Specific Rousseau Urine Protein Urine Glucose (UA) Urine Ketones Urine Blood Urine Nitrate Urine Bilirubin Urine Urobilinogen Ur Leukocyte Esterase Urine WBC (Auto) Urine RBC (Auto) Hyaline Casts Stool Occult Blood Urine Opiates Screen Urine Methadone Screen Ur Barbiturates Screen Ur Phencyclidine Scrn Ur Amphetamines Screen U Benzodiazepines Scrn U Oth Cocaine Metabols U Cannabinoids Screen Alcohol, Quantitative Blood Type O POSITIVE Antibody Screen Negative 01/04/18 01/04/18 01/04/18 14:10 14:12 14:30 WBC RBC Hgb Hct MCV MCH MCHC RDW Plt Count MPV Neut % (Auto) Lymph % (Auto) [place] % (Auto) Eos % (Auto) Baso % (Auto) Neut # (Auto) Lymph # (Auto) [place] # (Auto) Eos # (Auto) Baso # (Auto) Neutrophils % (Manual) Band Neutrophils % Lymphocytes % (Manual) Monocytes % (Manual) Platelet Estimate Hypochromasia (manual) Anisocytosis (manual) Target Cells Smear Path Review Retic Count Haptoglobin 199.3 PT INR APTT pO2 VBG pH VBG pCO2 VBG HCO3 VBG Total CO2 VBG Base Excess VBG Potassium Glucose Lactate Crit Value Called To Crit Value Called By Crit Value Read Back Blood Gas Notified Time Sodium 127 L Potassium 1.5 L* Chloride 81 L Carbon Dioxide 21 L Anion Gap 26 H BUN 46 H Creatinine 2.9 H Est GFR ( Amer) 28 Est GFR (Non-Af Amer) 23 POC Glucose (mg/dL) Random Glucose 121 H Lactic Acid Calcium 7.5 L Phosphorus Magnesium Iron TIBC % Saturation Transferrin 90.05 L Ferritin 1460.0 Total Bilirubin 5.6 H AST 124 H ALT 30 Alkaline Phosphatase 115 Ammonia Total Protein 7.0 Albumin 2.9 L Globulin 4.1 H Albumin/Globulin Ratio 0.7 L Lipase Venous Blood Potassium Urine Color Urine Clarity Urine pH Ur Specific Rousseau Urine Protein Urine Glucose (UA) Urine Ketones Urine Blood Urine Nitrate Urine Bilirubin Urine Urobilinogen Ur Leukocyte Esterase Urine WBC (Auto) Urine RBC (Auto) Hyaline Casts Stool Occult Blood Negative Urine Opiates Screen Urine Methadone Screen Ur Barbiturates Screen Ur Phencyclidine Scrn Ur Amphetamines Screen U Benzodiazepines Scrn U Oth Cocaine Metabols U Cannabinoids Screen Alcohol, Quantitative Blood Type Antibody Screen 01/04/18 01/04/18 01/04/18 15:43 15:57 20:23 WBC RBC Hgb Hct MCV MCH MCHC RDW Plt Count MPV Neut % (Auto) Lymph % (Auto) [place] % (Auto) Eos % (Auto) Baso % (Auto) Neut # (Auto) Lymph # (Auto) [place] # (Auto) Eos # (Auto) Baso # (Auto) Neutrophils % (Manual) Band Neutrophils % Lymphocytes % (Manual) Monocytes % (Manual) Platelet Estimate Hypochromasia (manual) Anisocytosis (manual) Target Cells Smear Path Review Retic Count Haptoglobin PT INR APTT pO2 22 L VBG pH 7.42 VBG pCO2 35 L VBG HCO3 22.3 VBG Total CO2 23.8 VBG Base Excess -1.3 L VBG Potassium 1.3 L* Glucose 120 H Lactate 8.2 H* Crit Value Called To Rah ritchie rn Crit Value Called By Karen Crit Value Read Back Y Blood Gas Notified Time 1602 Sodium 129.0 L 127 L Potassium 4.1 Chloride 89.0 L 86 L Carbon Dioxide 22 Anion Gap 23 H BUN 40 H Creatinine 2.4 H Est GFR ( Amer) 35 Est GFR (Non-Af Amer) 29 POC Glucose (mg/dL) Random Glucose 172 H Lactic Acid Calcium 6.2 L Phosphorus 4.0 Magnesium 1.8 Iron TIBC % Saturation Transferrin Ferritin Total Bilirubin AST ALT Alkaline Phosphatase Ammonia 64 H D Total Protein Albumin Globulin Albumin/Globulin Ratio Lipase Venous Blood Potassium 1.3 L* Urine Color Urine Clarity Urine pH Ur Specific Rousseau Urine Protein Urine Glucose (UA) Urine Ketones Urine Blood Urine Nitrate Urine Bilirubin Urine Urobilinogen Ur Leukocyte Esterase Urine WBC (Auto) Urine RBC (Auto) Hyaline Casts Stool Occult Blood Urine Opiates Screen Urine Methadone Screen Ur Barbiturates Screen Ur Phencyclidine Scrn Ur Amphetamines Screen U Benzodiazepines Scrn U Oth Cocaine Metabols U Cannabinoids Screen Alcohol, Quantitative Blood Type Antibody Screen 01/04/18 01/05/18 01/05/18 20:23 00:22 00:28 WBC RBC Hgb Hct MCV MCH MCHC RDW Plt Count MPV Neut % (Auto) Lymph % (Auto) [place] % (Auto) Eos % (Auto) Baso % (Auto) Neut # (Auto) Lymph # (Auto) [place] # (Auto) Eos # (Auto) Baso # (Auto) Neutrophils % (Manual) Band Neutrophils % Lymphocytes % (Manual) Monocytes % (Manual) Platelet Estimate Hypochromasia (manual) Anisocytosis (manual) Target Cells Smear Path Review Retic Count Haptoglobin PT INR APTT pO2 VBG pH VBG pCO2 VBG HCO3 VBG Total CO2 VBG Base Excess VBG Potassium Glucose Lactate Crit Value Called To Crit Value Called By Crit Value Read Back Blood Gas Notified Time Sodium Potassium Chloride Carbon Dioxide Anion Gap BUN Creatinine Est GFR ( Amer) Est GFR (Non-Af Amer) POC Glucose (mg/dL) 175 H Random Glucose Lactic Acid 5.3 H* 2.0 Calcium Phosphorus Magnesium Iron TIBC % Saturation Transferrin Ferritin Total Bilirubin AST ALT Alkaline Phosphatase Ammonia Total Protein Albumin Globulin Albumin/Globulin Ratio Lipase Venous Blood Potassium Urine Color Urine Clarity Urine pH Ur Specific Rousseau Urine Protein Urine Glucose (UA) Urine Ketones Urine Blood Urine Nitrate Urine Bilirubin Urine Urobilinogen Ur Leukocyte Esterase Urine WBC (Auto) Urine RBC (Auto) Hyaline Casts Stool Occult Blood Urine Opiates Screen Urine Methadone Screen Ur Barbiturates Screen Ur Phencyclidine Scrn Ur Amphetamines Screen U Benzodiazepines Scrn U Oth Cocaine Metabols U Cannabinoids Screen Alcohol, Quantitative Blood Type Antibody Screen 01/05/18 01/05/18 01/05/18 05:46 05:56 05:56 WBC RBC Hgb Hct MCV MCH MCHC RDW Plt Count MPV Neut % (Auto) Lymph % (Auto) [place] % (Auto) Eos % (Auto) Baso % (Auto) Neut # (Auto) Lymph # (Auto) [place] # (Auto) Eos # (Auto) Baso # (Auto) Neutrophils % (Manual) Band Neutrophils % Lymphocytes % (Manual) Monocytes % (Manual) Platelet Estimate Hypochromasia (manual) Anisocytosis (manual) Target Cells Smear Path Review Retic Count Haptoglobin PT INR APTT pO2 VBG pH VBG pCO2 VBG HCO3 VBG Total CO2 VBG Base Excess VBG Potassium Glucose Lactate Crit Value Called To Crit Value Called By Crit Value Read Back Blood Gas Notified Time Sodium Potassium Chloride Carbon Dioxide Anion Gap BUN Creatinine Est GFR ( Amer) Est GFR (Non-Af Amer) POC Glucose (mg/dL) 136 H Random Glucose Lactic Acid Calcium Phosphorus Magnesium Iron TIBC % Saturation Transferrin Ferritin Total Bilirubin AST ALT Alkaline Phosphatase Ammonia Total Protein Albumin Globulin Albumin/Globulin Ratio Lipase Venous Blood Potassium Urine Color Di Urine Clarity Clear Urine pH 5.0 Ur Specific Rousseau 1.010 Urine Protein Negative Urine Glucose (UA) Normal Urine Ketones Negative Urine Blood Negative Urine Nitrate Negative Urine Bilirubin Negative Urine Urobilinogen 4.0 Ur Leukocyte Esterase Neg Urine WBC (Auto) 1 Urine RBC (Auto) 1 Hyaline Casts 0-2 Stool Occult Blood Urine Opiates Screen Negative Urine Methadone Screen Negative Ur Barbiturates Screen Negative Ur Phencyclidine Scrn Negative Ur Amphetamines Screen Negative U Benzodiazepines Scrn Negative U Oth Cocaine Metabols Negative U Cannabinoids Screen Negative Alcohol, Quantitative Blood Type Antibody Screen 01/05/18 01/05/18 01/05/18 07:53 07:53 07:53 WBC 9.2 RBC 2.25 L Hgb 6.5 L* D Hct 17.9 L MCV 79.9 L D MCH 29.1 MCHC 36.5 RDW 17.0 H Plt Count 103 L D MPV 7.7 Neut % (Auto) 87.1 H Lymph % (Auto) 8.8 L [place] % (Auto) 3.8 Eos % (Auto) 0.1 Baso % (Auto) 0.2 Neut # (Auto) 8.0 H Lymph # (Auto) 0.8 L [place] # (Auto) 0.4 Eos # (Auto) 0.0 Baso # (Auto) 0.0 Neutrophils % (Manual) 86 H Band Neutrophils % 3 H Lymphocytes % (Manual) 9 L Monocytes % (Manual) 2 Platelet Estimate Decreased L Hypochromasia (manual) Slight Anisocytosis (manual) Slight Target Cells Moderate Smear Path Review Retic Count Haptoglobin PT INR APTT pO2 VBG pH VBG pCO2 VBG HCO3 VBG Total CO2 VBG Base Excess VBG Potassium Glucose Lactate Crit Value Called To Crit Value Called By Crit Value Read Back Blood Gas Notified Time Sodium 129 L Potassium 2.7 L Chloride 90 L Carbon Dioxide 26 Anion Gap 15 BUN 45 H Creatinine 2.5 H Est GFR ( Amer) 33 Est GFR (Non-Af Amer) 27 POC Glucose (mg/dL) Random Glucose 173 H Lactic Acid 1.8 Calcium 7.3 L Phosphorus 1.2 L Magnesium 1.9 Iron TIBC % Saturation Transferrin Ferritin Total Bilirubin 7.8 H AST 107 H ALT 29 Alkaline Phosphatase 103 Ammonia Total Protein 6.6 Albumin 2.8 L Globulin 3.8 Albumin/Globulin Ratio 0.7 L Lipase Venous Blood Potassium Urine Color Urine Clarity Urine pH Ur Specific Rousseau Urine Protein Urine Glucose (UA) Urine Ketones Urine Blood Urine Nitrate Urine Bilirubin Urine Urobilinogen Ur Leukocyte Esterase Urine WBC (Auto) Urine RBC (Auto) Hyaline Casts Stool Occult Blood Urine Opiates Screen Urine Methadone Screen Ur Barbiturates Screen Ur Phencyclidine Scrn Ur Amphetamines Screen U Benzodiazepines Scrn U Oth Cocaine Metabols U Cannabinoids Screen Alcohol, Quantitative Blood Type Antibody Screen 01/05/18 10:37 WBC RBC Hgb Hct MCV MCH MCHC RDW Plt Count MPV Neut % (Auto) Lymph % (Auto) [place] % (Auto) Eos % (Auto) Baso % (Auto) Neut # (Auto) Lymph # (Auto) [place] # (Auto) Eos # (Auto) Baso # (Auto) Neutrophils % (Manual) Band Neutrophils % Lymphocytes % (Manual) Monocytes % (Manual) Platelet Estimate Hypochromasia (manual) Anisocytosis (manual) Target Cells Smear Path Review Retic Count Haptoglobin PT 21.1 H INR 1.9 APTT pO2 VBG pH VBG pCO2 VBG HCO3 VBG Total CO2 VBG Base Excess VBG Potassium Glucose Lactate Crit Value Called To Crit Value Called By Crit Value Read Back Blood Gas Notified Time Sodium Potassium Chloride Carbon Dioxide Anion Gap BUN Creatinine Est GFR ( Amer) Est GFR (Non-Af Amer) POC Glucose (mg/dL) Random Glucose Lactic Acid Calcium Phosphorus Magnesium Iron TIBC % Saturation Transferrin Ferritin Total Bilirubin AST ALT Alkaline Phosphatase Ammonia Total Protein Albumin Globulin Albumin/Globulin Ratio Lipase Venous Blood Potassium Urine Color Urine Clarity Urine pH Ur Specific Rousseau Urine Protein Urine Glucose (UA) Urine Ketones Urine Blood Urine Nitrate Urine Bilirubin Urine Urobilinogen Ur Leukocyte Esterase Urine WBC (Auto) Urine RBC (Auto) Hyaline Casts Stool Occult Blood Urine Opiates Screen Urine Methadone Screen Ur Barbiturates Screen Ur Phencyclidine Scrn Ur Amphetamines Screen U Benzodiazepines Scrn U Oth Cocaine Metabols U Cannabinoids Screen Alcohol, Quantitative Blood Type Antibody Screen Assessment & Plan - Assessment and Plan (Free Text) Assessment: This is a 52 year old male with PMHx of Liver Cirrhosis with recurrent ascites, hepatic encephalopathy, ?chronic pancreatitis, with pancreatic insufficiency, Anemia of Chronic Disease admitted for AMS, abdominal pain, found to have hemoglobin of 2.9 and potassium of 1.4 on admission. 1. Acute Anemia 2. Decompensated alcoholic cirrhosis MELD 35 on admission 3. Alcoholic Hepatitis DF 65.2 4. Ascites 5. Hepatic encephalopathy-resolved 6. SHUN 7. Coagulopathy 8. Elevated LFts Plan: -Continue supportive care -Acute severe anemia, no active GI bleeding at this time -Hgb 6.5 s/p 3UPRBCs, recommend further transfusion goal>7 -Recent EGD 05/2018 with no varcies -Will plan for repeat EGD tomorrow in setting of acute anemia, no active bleed at this time -NPO -IV PPI drip -IV octreotide Drip -IV abx Rocephin daily with cirrhosis and possible GI bleed -Pt will need paracentesis to r/o SBP, order cell count to r/o SBP -CXR, UA negative -Pt will need steroid or pentoxyphilline for alcoholic hepatitis after infectious workup negative -Monitor for alcohol withdrawal -Replete electrolytes -SHUN, monitor renal function -Hold diuretics -Nephrology cs -Pt for EGD tomorrow, consent signed in chart -Will continue to follow closely <Frantz Guerrero - Last Filed: 01/07/18 10:57> Meds - Medications Medications: Current Medications Albumin Human (Albumin Human 25% (12.5 Gm/50 Ml)) 12.5 gm IV Q6H [facility] Stop: 01/08/18 02:16 Last Admin: 01/07/18 09:03 Dose: 12.5 gm Dextrose (Dextrose 50% Inj) 0 ml IV STAT PRN; Protocol PRN Reason: Hypoglycemia Protocol Dextrose (Glutose 15) 0 gm PO ONCE PRN; Protocol PRN Reason: Hypoglycemia Protocol Folic Acid (Folic Acid) 1 mg PO DAILY [facility] Last Admin: 01/07/18 10:43 Dose: 1 mg Glucagon (Glucagen Diagnostic Kit) 0 mg IM STAT PRN; Protocol PRN Reason: Hypoglycemia Protocol Dextrose (Dextrose 5% In Water 1000 Ml) 1,000 mls @ 0 mls/hr IV .Q0M PRN; Protocol; Per Protocol PRN Reason: Hypoglycemia Protocol Ceftriaxone Sodium (Rocephin Iv 1 Gm Duplex) 50 mls @ 100 mls/hr IVPB DAILY [facility]ABINA PRN Reason: Protocol Last Admin: 01/07/18 09:12 Dose: 100 mls/hr Insulin Human Regular (Novolin R) 0 unit SC ACHS SABINA PRN Reason: Protocol Last Admin: 01/07/18 08:04 Dose: 1 unit Midodrine (Proamatine) 2.5 mg PO TID [facility] Last Admin: 01/07/18 09:11 Dose: 2.5 mg Multivitamins/Vitamin C (Multi-Delyn Liquid) 5 ml PO DAILY [facility] Last Admin: 01/07/18 10:43 Dose: 5 ml Pantoprazole Sodium (Protonix Inj) 40 mg IVP Q12H [facility] Last Admin: 01/07/18 09:11 Dose: 40 mg Spironolactone (Aldactone) 50 mg PO DAILY [facility] Last Admin: 01/07/18 10:44 Dose: 50 mg Thiamine HCl (Vitamin B1 Tab) 100 mg PO DAILY [facility] Last Admin: 01/07/18 10:43 Dose: 100 mg Results - Vital Signs Recent Vital Signs: Last Vital Signs Temp 97.9 F 01/06/18 16:00 Pulse 87 01/07/18 07:55 Resp 12 01/07/18 07:55 BP 100/66 01/07/18 07:55 Pulse Ox 100 01/07/18 07:55 - Labs Result Diagrams: 01/07/18 06:30 01/07/18 06:30 Labs: Laboratory Results - last 24 hr 01/05/18 01/06/18 01/06/18 15:16 06:40 12:42 WBC RBC Hgb Hct MCV MCH MCHC RDW Plt Count MPV Neut % (Auto) Lymph % (Auto) [place] % (Auto) Eos % (Auto) Baso % (Auto) Neut # (Auto) Lymph # (Auto) [place] # (Auto) Eos # (Auto) Baso # (Auto) PT INR Sodium 131 L Potassium 4.0 Chloride 95 L Carbon Dioxide 21 L Anion Gap 19 BUN 39 H Creatinine 2.1 H Est GFR ( Amer) 40 Est GFR (Non-Af Amer) 33 POC Glucose (mg/dL) 189 H Random Glucose 193 H Calcium 6.8 L Phosphorus 1.6 L Magnesium 2.1 Total Bilirubin 7.3 H AST 85 H D ALT 26 Alkaline Phosphatase 101 Total Creatine Kinase 38 L Total Protein 6.8 Albumin 3.0 L Globulin 3.7 Albumin/Globulin Ratio 0.8 L Triglycerides 74 D Urine Chloride 20 L Fluid Source Fluid Appearance Fluid WBC Fluid RBC Fluid Tot Cell Count Fluid Neutrophils Fluid Lymphocytes Fld Monocyte/Macrophag Fluid Comment 01/06/18 01/06/18 01/06/18 17:30 19:38 23:33 WBC RBC Hgb Hct MCV MCH MCHC RDW Plt Count MPV Neut % (Auto) Lymph % (Auto) [place] % (Auto) Eos % (Auto) Baso % (Auto) Neut # (Auto) Lymph # (Auto) [place] # (Auto) Eos # (Auto) Baso # (Auto) PT INR Sodium Potassium Chloride Carbon Dioxide Anion Gap BUN Creatinine Est GFR ( Amer) Est GFR (Non-Af Amer) POC Glucose (mg/dL) 153 H 139 H Random Glucose Calcium Phosphorus Magnesium Total Bilirubin AST ALT Alkaline Phosphatase Total Creatine Kinase Total Protein Albumin Globulin Albumin/Globulin Ratio Triglycerides Urine Chloride Fluid Source Peritoneal/ascites Fluid Appearance Sl cloudy Fluid WBC 116.0 Fluid RBC 3076.0 H Fluid Tot Cell Count 100 H Fluid Neutrophils 39.0 H Fluid Lymphocytes 57.0 H Fld Monocyte/Macrophag 3 H Fluid Comment 01/07/18 01/07/18 01/07/18 05:25 06:30 06:30 WBC 7.4 RBC 2.56 L Hgb 7.3 L Hct 20.7 L MCV 80.8 MCH 28.6 MCHC 35.4 RDW 18.1 H Plt Count 62 L D MPV 8.7 Neut % (Auto) 82.2 H Lymph % (Auto) 11.1 L [place] % (Auto) 6.2 Eos % (Auto) 0.3 Baso % (Auto) 0.2 Neut # (Auto) 6.1 Lymph # (Auto) 0.8 L [place] # (Auto) 0.5 Eos # (Auto) 0.0 Baso # (Auto) 0.0 PT INR Sodium 136 Potassium 3.6 Chloride 100 Carbon Dioxide 20 L Anion Gap 20 BUN 28 H Creatinine 1.8 H Est GFR ( Amer) 48 Est GFR (Non-Af Amer) 40 POC Glucose (mg/dL) 168 H Random Glucose 153 H Calcium 6.9 L Phosphorus 3.7 Magnesium 1.6 Total Bilirubin 5.8 H AST 61 H D ALT 30 Alkaline Phosphatase 61 Total Creatine Kinase Total Protein 5.1 L Albumin 2.6 L Globulin 2.5 Albumin/Globulin Ratio 1.0 Triglycerides Urine Chloride Fluid Source Fluid Appearance Fluid WBC Fluid RBC Fluid Tot Cell Count Fluid Neutrophils Fluid Lymphocytes Fld Monocyte/Macrophag Fluid Comment 01/07/18 01/07/18 06:30 07:37 WBC RBC Hgb Hct MCV MCH MCHC RDW Plt Count MPV Neut % (Auto) Lymph % (Auto) [place] % (Auto) Eos % (Auto) Baso % (Auto) Neut # (Auto) Lymph # (Auto) [place] # (Auto) Eos # (Auto) Baso # (Auto) PT 26.8 H D INR 2.4 D Sodium Potassium Chloride Carbon Dioxide Anion Gap BUN Creatinine Est GFR ( Amer) Est GFR (Non-Af Amer) POC Glucose (mg/dL) 181 H Random Glucose Calcium Phosphorus Magnesium Total Bilirubin AST ALT Alkaline Phosphatase Total Creatine Kinase Total Protein Albumin Globulin Albumin/Globulin Ratio Triglycerides Urine Chloride Fluid Source Fluid Appearance Fluid WBC Fluid RBC Fluid Tot Cell Count Fluid Neutrophils Fluid Lymphocytes Fld Monocyte/Macrophag Fluid Comment Attending/Attestation - Attestation I have personally seen and examined this patient.: Yes I have fully participated in the care of the patient.: Yes I have reviewed all pertinent clinical information: Yes Notes (Text): 01/06/18 0800 52 year old male with decompensated cirrhosis a/w severe anemia and ascites. Recommend EGD today. REcommend LVP. Recommend nephrology eval for renal failure. Recommend IV octreotide and PPI and abx pending egd eval. Transfuse blood.
[2018-01-05] MEDS ORDERED: Potassium Ch 20mEq in D5-1/2NS 1,000 ML IV SCH (12:00)
--- NOTE | 2018-01-05 12:20 | US ---
HISTORY: evaluate for ascites COMPARISON: None. TECHNIQUE: Sonographic evaluation of the abdomen for ascites. FINDINGS: Large volume ascites is seen in all 4 quadrants. IMPRESSION: Large volume ascites.
[2018-01-05] MEDS ORDERED: Potassium Chloride 20 MEQ in Dextrose 5%/0.9% NS 1,000 ML IV ONE (12:43)
[2018-01-05] MEDS: Pantoprazole 80 MG in Sodium Chloride 0.9% 100 ML IV SCH (13:11)
[2018-01-05 14:09] LABS: VENOUS BLOOD GAS BASE EXCESS -4.1 mmol/L (0.0-2.0); VENOUS BLOOD GAS PCO2 44 mmHg (40-60); VENOUS BLOOD GAS PO2 20 mm/Hg (30-55); VENOUS BLOOD PH 7.31 (7.32-7.43)
[2018-01-05 14:19] LABS: BASO % 0.2 % (0.0-2.0); HEMOGLOBIN 6.7 g/dL (12.0-18.0); LYMPH # 0.7 K/uL (1.0-4.3); LYMPH % 10.1 % (20.0-40.0); MEAN CELL VOLUME 80.7 fL (80.0-94.0); MEAN CORPUSCULAR HEMOGLOBIN 28.7 pg (27.0-31.0); MEAN CORPUSCULAR HGB CONC 35.5 g/dL (33.0-37.0); MEAN PLATELET VOLUME 8.3 fL (7.2-11.7); MONO # 0.3 K/uL (0.0-0.8); MONO % 4.3 % (0.0-10.0); NEUT # 6.2 K/uL (1.8-7.0); NEUT % 85.4 % (50.0-75.0); RBC 2.35 Mil/uL (4.40-5.90); RED CELL DISTRIBUTION WIDTH 16.8 % (11.5-14.5); WHITE BLOOD COUNT 7.2 K/uL (4.8-10.8)
[2018-01-05 14:25] LABS: INR 2.1; PROTHROMBIN TIME 23.5 SECONDS (9.7-12.2)
[2018-01-05 15:21] LABS: BASO # 0.1 K/uL (0.0-0.2); BASO % 0.6 % (0.0-2.0); EOS % 0.1 % (0.0-4.0); HEMOGLOBIN 8.3 g/dL (12.0-18.0); LYMPH # 1.1 K/uL (1.0-4.3); LYMPH % 10.4 % (20.0-40.0); MEAN CELL VOLUME 80.1 fL (80.0-94.0); MEAN CORPUSCULAR HEMOGLOBIN 28.8 pg (27.0-31.0); MEAN CORPUSCULAR HGB CONC 35.9 g/dL (33.0-37.0); MEAN PLATELET VOLUME 8.1 fL (7.2-11.7); MONO # 0.4 K/uL (0.0-0.8); MONO % 3.6 % (0.0-10.0); NEUT # 8.7 K/uL (1.8-7.0); NEUT % 85.3 % (50.0-75.0); NRBC % 0.1 % (0.0-2.0); RBC 2.87 Mil/uL (4.40-5.90); RED CELL DISTRIBUTION WIDTH 16.7 % (11.5-14.5); WHITE BLOOD COUNT 10.2 K/uL (4.8-10.8)
[2018-01-05] MEDS: Potassium Chloride 20 MEQ in Dextrose 5%/0.9% NS 1,000 ML IV SCH (15:25)
[2018-01-05 15:26] LABS: INR 1.9; PROTHROMBIN TIME 21.2 SECONDS (9.7-12.2)
[2018-01-05 15:37] LABS: CREATININE, RANDOM URINE 80.1 mg/dL
--- NOTE | 2018-01-05 15:37 | CARD ---
APPROVED REPORT EKG Measurement Heart [id number] <Conclusion> Normal sinus rhythm Septal infarct, age undetermined ST & T wave abnormality, consider inferior ischemia ST & T wave abnormality, consider anterior ischemia Prolonged QT Abnormal ECG
[2018-01-05 15:43] LABS: ALB/GLOB RATIO 0.8 (1.0-2.1); ALBUMIN 3.1 g/dL (3.5-5.0); CALCIUM 7.5 mg/dl (8.6-10.4)
[2018-01-05] MEDS ORDERED: Lidocaine 2% MPF (5 ml) Inj ONE (15:58)
--- NOTE | 2018-01-05 16:22 | PCM.SURG1 ---
Surgeon's Initial Post Op Note - Surgeon's Notes Surgeon: Shanell Pigment Grinder: None Type of Anesthesia: Local Pre-Operative Diagnosis: IV Access Operative Findings: Patent right brachial vein Post-Operative Diagnosis: IV Access Operation Performed: Right brachial vein 5F DL 32cm PICC placed with the tip at the RA/SVC junction Specimen/Specimens Removed: None Estimated Blood Loss: EBL {In ML}: 1 Blood Products Given: N/A Drains Used: No Drains Post-Op Condition: Good Date of Surgery/Procedure: 01/05/18 Time of Surgery/Procedure: 16:15
[2018-01-05] MEDS: Magnesium Sulfate 1 gm in D5W 1 GM/100 ML BAG IVPB SCH ×2 (17:23→17:46)
--- NOTE | 2018-01-05 17:57 | CT ---
PROCEDURE: CT Chest, Abdomen and Pelvis without intravenous contrast HISTORY: anemia, hx pancreatitis, liver cirrhosis COMPARISON: None. TECHNIQUE: Radiation dose: Total exam DLP = 668.6 mGy-cm. This CT exam was performed using one or more of the following dose reduction techniques: Automated exposure control, adjustment of the mA and/or kV according to patient size, and/or use of iterative reconstruction technique. FINDINGS: LUNGS: Clear. No nodule, mass or consolidation. MEDIASTINUM: Right upper extremity PICC with tip at the cavoatrial junction. Normal caliber aorta and pulmonary arterial trunk. Normal size heart. LYMPH NODES: Small calcified pre carinal lymph node. PLEURA: Small bilateral pleural effusions. No pneumothorax. No pleural fluid. LIVER: Increased multiple hepatic lesions, poorly characterized in the absence of intravenous contrast. Nodular contour. GALLBLADDER AND BILE DUCTS: Distended. PANCREAS: Unremarkable. No gross lesion or ductal dilatation. SPLEEN: Unremarkable. ADRENALS: Unremarkable. No mass. KIDNEYS AND URETERS: Mild left hydronephrosis without evidence of obstructing calculus. Nonobstructive bilateral punctate renal calculi. No solid mass. VASCULATURE: Unremarkable. No aortic aneurysm. BOWEL: [place]ado colonic wall thickening. No obstruction. No gross mural thickening. APPENDIX: Limited assessment in the presence of extensive ascites. PERITONEUM: Large volume ascites. Focal area of hyperdensity layering within the ascites on the left (series 6, image 130). No free air. LYMPH NODES: Limited assessment in the presence of ascites and absence of intravenous contrast. BLADDER: Unremarkable. REPRODUCTIVE: Prior hysterectomy. BONES: No acute fracture. OTHER FINDINGS: None. IMPRESSION: Increased number of hepatic lesions lung poorly characterized in the absence of intravenous contrast. Extensive abdominal ascites and small pleural effusions. Nonspecific hyperdense area layering dependently within the ascites on the left, not present on previous CT scan dated 07/31/2017. Nonspecific thickening of the colon which may be reactive in the setting of ascites or may represent colitis. Mild left hydroureteronephrosis without evidence of obstructive calculus.
--- NOTE | 2018-01-05 18:23 | CP.CCUPN ---
<Darrell Diane - Last Filed: 01/05/18 18:20> CCU Subjective - Physician Review Subjective (Free Text): Patient seen and examined at bedside. With assistance of patient's nurse who spoke Gujarati, we were able to find out patient has been vomiting bright red blood and have black, tarry tools x 1 week. Currently he denied any hemoptysis, BRBPR, black tarry stools since admission. CCU Objective - Vital Signs / Intake & Output Vital Signs (Last 4 hours): Vital Signs Pulse Resp BP Pulse Ox 01/05/18 18:12 97 H 14 114/77 99 01/05/18 17:12 102 H 17 119/82 96 01/05/18 16:54 101 H 17 123/78 97 01/05/18 15:12 92 H 16 107/69 99 Intake and Output (Last 8hrs): Intake & Output 01/05/18 01/05/18 01/05/18 06:59 14:59 22:59 Intake Total 1010 385 Output Total 200 0 Balance 810 385 Weight 108 lb Intake: Intake, IV Amount 100 100 Left Hand 100 100 Lt AC y site 0 Oral 50 0 Blood Product 860 285 Apheresis Rbc Cp2d As3 Lr 285 1st Unit [id number] Apheresis Rbc Cp2d As3 Lr 280 1st Unit [id number] Output: Urine 200 0 Urine, Voided 200 0 Other: # Bowel Movements 1 - Physical Exam Head: Positive for: Atraumatic, Normocephalic Pupils: Positive for: PERRL Extroacular Muscles: Positive for: EOMI Conjunctiva: Positive for: Icteric Mouth: Positive for: Dry Respiratory/Chest: Positive for: Decreased Breath Sounds Cardiovascular: Positive for: Tachycardic Abdomen: Positive for: Tenderness, Distention, Normal Bowel Sounds, Other ( fluid wave shift ). Negative for: Mass/Organomegaly Upper Extremity: Positive for: Normal Inspection, NORMAL PULSES, Neurovascularly Intact, Capillary Refill < 2s. Negative for: Edema Lower Extremity: Positive for: Normal Inspection, NORMAL PULSES, Neurovascularly Intact, Capillary Refill < 2 s Neurological: Positive for: GCS=15, CN II-XII Intact Skin: Positive for: Warm, Dry Psychiatric: Positive for: Alert - Medications Active Medications: Active Medications Generic Name Dose Route Start Last Admin Trade Name Freq PRN Reason Stop Dose Admin Dextrose 0 ml 01/04/18 19:08 Dextrose 50% Inj IV STAT PRN Hypoglycemia Protocol Protocol Dextrose 0 gm 01/04/18 19:08 Glutose 15 PO ONCE PRN Hypoglycemia Protocol Protocol Glucagon 0 mg 01/04/18 18:57 Glucagen Diagnostic Kit IM STAT PRN Hypoglycemia Protocol Protocol Dextrose 1,000 mls @ 0 mls/hr 01/04/18 19:06 Dextrose 5% In Water 1000 Ml IV .Q0M PRN Hypoglycemia Protocol Protocol Per Protocol Ceftriaxone Sodium 50 mls @ 100 mls/hr 01/05/18 10:00 01/05/18 10:52 Rocephin Iv 1 Gm Duplex IVPB 100 mls/hr DAILY SABINA Administration Protocol Pantoprazole Sodium 80 mg/ 100 mls @ 10 mls/hr 01/05/18 11:00 01/05/18 13:11 Sodium Chloride IV 10 mls/hr .Q10H SABINA Administration 8 MG/HR Octreotide Acetate 1,250 mcg/ 252.5 mls @ 10.1 mls/hr 01/05/18 13:15 13:25 Sodium Chloride IV 10.1 mls/hr .Q24H SABINA Administration Protocol 50 MCG/HR Potassium Chloride 20 meq/ 1,010 mls @ 100 mls/hr 01/05/18 16:00 01/05/18 15: 25 Dextrose/Sodium Chloride IV 100 mls/hr .Q10H6M SABINA Administration Multivitamins/Vitamin C 10 ml/ 1,011.2 mls @ 50 mls/hr 01/05/18 13:44 14:00 Thiamine HCl 100 mg/ Folic IV 50 mls/hr Acid 1 mg/ Dextrose Q24H SABINA Administration Potassium Phosphate 15 mmole/ 255 mls @ 42.5 mls/hr 01/05/18 17:05 01/05/18 17:39 Sodium Chloride IVPB 01/05/18 23:04 42.5 mls/hr ONCE ONE Administration Insulin Human Regular 0 unit 01/05/18 00:00 01/05/18 17:46 Novolin R SC 2 units Q6H SABINA Administration Protocol Lorazepam 1 mg 01/04/18 15:31 Ativan IVP Q4H PRN Symptoms of alcohol withdrawl Potassium Chloride 40 meq 01/05/18 13:45 01/05/18 17:24 Potassium Chloride Oral Soln PO 01/05/18 21:46 40 meq Q4H SABINA Administration - Patient Studies Lab Studies: Microbiology Studies 01/04/18 18:10 Blood Culture - Preliminary Blood NO GROWTH AFTER 24 HOURS 01/04/18 18:10 Blood Culture - Preliminary Blood NO GROWTH AFTER 24 HOURS Lab Studies 01/05/18 01/05/18 01/05/18 Range/Units 17:42 15:53 15:16 WBC (4.8-10.8) K/uL RBC (4.40-5.90) Mil/uL Hgb (12.0-18.0) g/dL Hct (35.0-51.0) % MCV (80.0-94.0) fL MCH (27.0-31.0) pg MCHC (33.0-37.0) g/dL RDW (11.5-14.5) % Plt Count (130-400) K/uL MPV (7.2-11.7) fL Neut % (Auto) (50.0-75.0) % Lymph % (Auto) (20.0-40.0) % [place] % (Auto) (0.0-10.0) % Eos % (Auto) (0.0-4.0) % Baso % (Auto) (0.0-2.0) % Neut # (Auto) (1.8-7.0) K/uL Lymph # (Auto) (1.0-4.3) K/uL [place] # (Auto) (0.0-0.8) K/uL Eos # (Auto) (0.0-0.7) K/uL Baso # (Auto) (0.0-0.2) K/uL Neutrophils % (Manual) (50-75) % Band Neutrophils % (0-2) % Lymphocytes % (Manual) (20-40) % Monocytes % (Manual) (0-10) % Platelet Estimate (NORMAL) Hypochromasia (manual) Anisocytosis (manual) Target Cells PT 21.2 H (9.7-12.2) SECONDS INR 1.9 pO2 (30-55) mm/Hg VBG pH (7.32-7.43) VBG pCO2 (40-60) mmHg VBG HCO3 mmol/L VBG Total CO2 (22-28) mmol/L VBG O2 Sat (Calc) (40-65) % VBG Base Excess (0.0-2.0) mmol/L VBG Potassium (3.6-5.2) mmol/L Glucose (75-110) mg/dl Lactate (0.7-2.1) mmol/L Crit Value Called To Crit Value Called By Crit Value Read Back Blood Gas Notified Time Sodium (132-148) mmol/L Potassium (3.6-5.2) mmol/L Chloride (98-107) mmol/L Carbon Dioxide (22-30) mmol/L Anion Gap (10-20) BUN (9-20) mg/dL Creatinine (0.8-1.5) mg/dL Est GFR ( Amer) Est GFR (Non-Af Amer) POC Glucose (mg/dL) 216 H (65-110) mg/dL Random Glucose (75-110) mg/dL Lactic Acid (0.7-2.1) mmol/L Calcium (8.6-10.4) mg/dl Phosphorus (2.5-4.5) mg/dL Magnesium (1.6-2.3) mg/dL Total Bilirubin (0.2-1.3) mg/dL AST (17-59) U/L ALT (21-72) U/L Alkaline Phosphatase (38-126) U/L Ammonia (9-33) umol/L Total Protein (6.3-8.3) g/dL Albumin (3.5-5.0) g/dL Globulin (2.2-3.9) gm/dL Albumin/Globulin Ratio (1.0-2.1) Venous Blood Potassium (3.6-5.2) mmol/L Urine Color (YELLOW) Urine Clarity (Clear) Urine pH (5.0-8.0) Ur Specific [place] (1.003-1.030) Urine Protein (NEGATIVE) mg/dL Urine Glucose (UA) (Normal) mg/dL Urine Ketones (NEGATIVE) mg/dL Urine Blood (NEGATIVE) Urine Nitrate (NEGATIVE) Urine Bilirubin (NEGATIVE) Urine Urobilinogen (0.2-1.0) mg/dL Ur Leukocyte Esterase (Negative) Farhana/uL Urine WBC (Auto) (0-5) /hpf Urine RBC (Auto) (0-3) /hpf Hyaline Casts (0-2) /lpf Urine Osmolality 318 (300-1000) mosm/kg Ur Random Creatinine mg/dL U Random Total Protein (0.0-12.0) mg/dL Ur Random Sodium mmol/L Urine Opiates Screen (NEGATIVE) Urine Methadone Screen (NEGATIVE) Ur Barbiturates Screen (NEGATIVE) Ur Phencyclidine Scrn (NEGATIVE) Ur Amphetamines Screen (NEGATIVE) U Benzodiazepines Scrn (NEGATIVE) U Oth Cocaine Metabols (NEGATIVE) U Cannabinoids Screen (NEGATIVE) Blood Type Antibody Screen 01/05/18 01/05/18 01/05/18 Range/Units 15:16 15:16 15:16 WBC 10.2 (4.8-10.8) K/uL RBC 2.87 L (4.40-5.90) Mil/uL Hgb 8.3 L (12.0-18.0) g/dL Hct 23.0 L (35.0-51.0) % MCV 80.1 (80.0-94.0) fL MCH 28.8 (27.0-31.0) pg MCHC 35.9 (33.0-37.0) g/dL RDW 16.7 H (11.5-14.5) % Plt Count 96 L (130-400) K/uL MPV 8.1 (7.2-11.7) fL Neut % (Auto) 85.3 H (50.0-75.0) % Lymph % (Auto) 10.4 L (20.0-40.0) % [place] % (Auto) 3.6 (0.0-10.0) % Eos % (Auto) 0.1 (0.0-4.0) % Baso % (Auto) 0.6 (0.0-2.0) % Neut # (Auto) 8.7 H (1.8-7.0) K/uL Lymph # (Auto) 1.1 (1.0-4.3) K/uL [place] # (Auto) 0.4 (0.0-0.8) K/uL Eos # (Auto) 0.0 (0.0-0.7) K/uL Baso # (Auto) 0.1 (0.0-0.2) K/uL Neutrophils % (Manual) (50-75) % Band Neutrophils % (0-2) % Lymphocytes % (Manual) (20-40) % Monocytes % (Manual) (0-10) % Platelet Estimate (NORMAL) Hypochromasia (manual) Anisocytosis (manual) Target Cells PT (9.7-12.2) SECONDS INR pO2 (30-55) mm/Hg VBG pH (7.32-7.43) VBG pCO2 (40-60) mmHg VBG HCO3 mmol/L VBG Total CO2 (22-28) mmol/L VBG O2 Sat (Calc) (40-65) % VBG Base Excess (0.0-2.0) mmol/L VBG Potassium (3.6-5.2) mmol/L Glucose (75-110) mg/dl Lactate (0.7-2.1) mmol/L Crit Value Called To Crit Value Called By Crit Value Read Back Blood Gas Notified Time Sodium 130 L (132-148) mmol/L Potassium 3.0 L (3.6-5.2) mmol/L Chloride 90 L (98-107) mmol/L Carbon Dioxide 25 (22-30) mmol/L Anion Gap 18 (10-20) BUN 43 H (9-20) mg/dL Creatinine 2.4 H (0.8-1.5) mg/dL Est GFR ( Amer) 35 Est GFR (Non-Af Amer) 29 POC Glucose (mg/dL) (65-110) mg/dL Random Glucose 184 H (75-110) mg/dL Lactic Acid (0.7-2.1) mmol/L Calcium 7.5 L (8.6-10.4) mg/dl Phosphorus 2.3 L (2.5-4.5) mg/dL Magnesium 1.7 (1.6-2.3) mg/dL Total Bilirubin 10.2 H (0.2-1.3) mg/dL AST 109 H (17-59) U/L ALT 29 (21-72) U/L Alkaline Phosphatase 123 (38-126) U/L Ammonia 16 D (9-33) umol/L Total Protein 7.1 (6.3-8.3) g/dL Albumin 3.1 L (3.5-5.0) g/dL Globulin 4.0 H (2.2-3.9) gm/dL Albumin/Globulin Ratio 0.8 L (1.0-2.1) Venous Blood Potassium (3.6-5.2) mmol/L Urine Color (YELLOW) Urine Clarity (Clear) Urine pH (5.0-8.0) Ur Specific [place] (1.003-1.030) Urine Protein (NEGATIVE) mg/dL Urine Glucose (UA) (Normal) mg/dL Urine Ketones (NEGATIVE) mg/dL Urine Blood (NEGATIVE) Urine Nitrate (NEGATIVE) Urine Bilirubin (NEGATIVE) Urine Urobilinogen (0.2-1.0) mg/dL Ur Leukocyte Esterase (Negative) Farhana/uL Urine WBC (Auto) (0-5) /hpf Urine RBC (Auto) (0-3) /hpf Hyaline Casts (0-2) /lpf Urine Osmolality (300-1000) mosm/kg Ur Random Creatinine mg/dL U Random Total Protein (0.0-12.0) mg/dL Ur Random Sodium mmol/L Urine Opiates Screen (NEGATIVE) Urine Methadone Screen (NEGATIVE) Ur Barbiturates Screen (NEGATIVE) Ur Phencyclidine Scrn (NEGATIVE) Ur Amphetamines Screen (NEGATIVE) U Benzodiazepines Scrn (NEGATIVE) U Oth Cocaine Metabols (NEGATIVE) U Cannabinoids Screen (NEGATIVE) Blood Type Antibody Screen 01/05/18 01/05/18 01/05/18 Range/Units 15:16 14:12 14:12 WBC (4.8-10.8) K/uL RBC (4.40-5.90) Mil/uL Hgb (12.0-18.0) g/dL Hct (35.0-51.0) % MCV (80.0-94.0) fL MCH (27.0-31.0) pg MCHC (33.0-37.0) g/dL RDW (11.5-14.5) % Plt Count (130-400) K/uL MPV (7.2-11.7) fL Neut % (Auto) (50.0-75.0) % Lymph % (Auto) (20.0-40.0) % [place] % (Auto) (0.0-10.0) % Eos % (Auto) (0.0-4.0) % Baso % (Auto) (0.0-2.0) % Neut # (Auto) (1.8-7.0) K/uL Lymph # (Auto) (1.0-4.3) K/uL [place] # (Auto) (0.0-0.8) K/uL Eos # (Auto) (0.0-0.7) K/uL Baso # (Auto) (0.0-0.2) K/uL Neutrophils % (Manual) (50-75) % Band Neutrophils % (0-2) % Lymphocytes % (Manual) (20-40) % Monocytes % (Manual) (0-10) % Platelet Estimate (NORMAL) Hypochromasia (manual) Anisocytosis (manual) Target Cells PT 23.5 H (9.7-12.2) SECONDS INR 2.1 pO2 (30-55) mm/Hg VBG pH (7.32-7.43) VBG pCO2 (40-60) mmHg VBG HCO3 mmol/L VBG Total CO2 (22-28) mmol/L VBG O2 Sat (Calc) (40-65) % VBG Base Excess (0.0-2.0) mmol/L VBG Potassium (3.6-5.2) mmol/L Glucose (75-110) mg/dl Lactate (0.7-2.1) mmol/L Crit Value Called To Crit Value Called By Crit Value Read Back Blood Gas Notified Time Sodium (132-148) mmol/L Potassium (3.6-5.2) mmol/L Chloride (98-107) mmol/L Carbon Dioxide (22-30) mmol/L Anion Gap (10-20) BUN (9-20) mg/dL Creatinine (0.8-1.5) mg/dL Est GFR ( Amer) Est GFR (Non-Af Amer) POC Glucose (mg/dL) (65-110) mg/dL Random Glucose (75-110) mg/dL Lactic Acid (0.7-2.1) mmol/L Calcium (8.6-10.4) mg/dl Phosphorus (2.5-4.5) mg/dL Magnesium (1.6-2.3) mg/dL Total Bilirubin (0.2-1.3) mg/dL AST (17-59) U/L ALT (21-72) U/L Alkaline Phosphatase (38-126) U/L Ammonia 23 D (9-33) umol/L Total Protein (6.3-8.3) g/dL Albumin (3.5-5.0) g/dL Globulin (2.2-3.9) gm/dL Albumin/Globulin Ratio (1.0-2.1) Venous Blood Potassium (3.6-5.2) mmol/L Urine Color (YELLOW) Urine Clarity (Clear) Urine pH (5.0-8.0) Ur Specific [place] (1.003-1.030) Urine Protein (NEGATIVE) mg/dL Urine Glucose (UA) (Normal) mg/dL Urine Ketones (NEGATIVE) mg/dL Urine Blood (NEGATIVE) Urine Nitrate (NEGATIVE) Urine Bilirubin (NEGATIVE) Urine Urobilinogen (0.2-1.0) mg/dL Ur Leukocyte Esterase (Negative) Farhana/uL Urine WBC (Auto) (0-5) /hpf Urine RBC (Auto) (0-3) /hpf Hyaline Casts (0-2) /lpf Urine Osmolality (300-1000) mosm/kg Ur Random Creatinine 80.1 mg/dL U Random Total Protein 25.0 H (0.0-12.0) mg/dL Ur Random Sodium 10 mmol/L Urine Opiates Screen (NEGATIVE) Urine Methadone Screen (NEGATIVE) Ur Barbiturates Screen (NEGATIVE) Ur Phencyclidine Scrn (NEGATIVE) Ur Amphetamines Screen (NEGATIVE) U Benzodiazepines Scrn (NEGATIVE) U Oth Cocaine Metabols (NEGATIVE) U Cannabinoids Screen (NEGATIVE) Blood Type Antibody Screen 01/05/18 01/05/18 01/05/18 Range/Units 14:12 14:05 11:36 WBC 7.2 (4.8-10.8) K/uL RBC 2.35 L (4.40-5.90) Mil/uL Hgb 6.7 L (12.0-18.0) g/dL Hct 19.0 L (35.0-51.0) % MCV 80.7 (80.0-94.0) fL MCH 28.7 (27.0-31.0) pg MCHC 35.5 (33.0-37.0) g/dL RDW 16.8 H (11.5-14.5) % Plt Count 85 L (130-400) K/uL MPV 8.3 (7.2-11.7) fL Neut % (Auto) 85.4 H (50.0-75.0) % Lymph % (Auto) 10.1 L (20.0-40.0) % [place] % (Auto) 4.3 (0.0-10.0) % Eos % (Auto) 0.0 (0.0-4.0) % Baso % (Auto) 0.2 (0.0-2.0) % Neut # (Auto) 6.2 (1.8-7.0) K/uL Lymph # (Auto) 0.7 L (1.0-4.3) K/uL [place] # (Auto) 0.3 (0.0-0.8) K/uL Eos # (Auto) 0.0 (0.0-0.7) K/uL Baso # (Auto) 0.0 (0.0-0.2) K/uL Neutrophils % (Manual) (50-75) % Band Neutrophils % (0-2) % Lymphocytes % (Manual) (20-40) % Monocytes % (Manual) (0-10) % Platelet Estimate (NORMAL) Hypochromasia (manual) Anisocytosis (manual) Target Cells PT (9.7-12.2) SECONDS INR pO2 20 L (30-55) mm/Hg VBG pH 7.31 L (7.32-7.43) VBG pCO2 44 (40-60) mmHg VBG HCO3 19.8 mmol/L VBG Total CO2 23.6 (22-28) mmol/L VBG O2 Sat (Calc) 47.1 (40-65) % VBG Base Excess -4.1 L (0.0-2.0) mmol/L VBG Potassium 9.8 H* (3.6-5.2) mmol/L Glucose 536 H* D (75-110) mg/dl Lactate 1.9 (0.7-2.1) mmol/L Crit Value Called To Dr darrell diane Crit 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 Crit Value Read Back Y Blood Gas Notified Time 1410 Sodium 116.0 L* (132-148) mmol/L Potassium (3.6-5.2) mmol/L Chloride 87.0 L (98-107) mmol/L Carbon Dioxide (22-30) mmol/L Anion Gap (10-20) BUN (9-20) mg/dL Creatinine (0.8-1.5) mg/dL Est GFR ( Amer) Est GFR (Non-Af Amer) POC Glucose (mg/dL) 209 H (65-110) mg/dL Random Glucose (75-110) mg/dL Lactic Acid (0.7-2.1) mmol/L Calcium (8.6-10.4) mg/dl Phosphorus (2.5-4.5) mg/dL Magnesium (1.6-2.3) mg/dL Total Bilirubin (0.2-1.3) mg/dL AST (17-59) U/L ALT (21-72) U/L Alkaline Phosphatase (38-126) U/L Ammonia (9-33) umol/L Total Protein (6.3-8.3) g/dL Albumin (3.5-5.0) g/dL Globulin (2.2-3.9) gm/dL Albumin/Globulin Ratio (1.0-2.1) Venous Blood Potassium 9.8 H* (3.6-5.2) mmol/L Urine Color (YELLOW) Urine Clarity (Clear) Urine pH (5.0-8.0) Ur Specific [place] (1.003-1.030) Urine Protein (NEGATIVE) mg/dL Urine Glucose (UA) (Normal) mg/dL Urine Ketones (NEGATIVE) mg/dL Urine Blood (NEGATIVE) Urine Nitrate (NEGATIVE) Urine Bilirubin (NEGATIVE) Urine Urobilinogen (0.2-1.0) mg/dL Ur Leukocyte Esterase (Negative) Farhana/uL Urine WBC (Auto) (0-5) /hpf Urine RBC (Auto) (0-3) /hpf Hyaline Casts (0-2) /lpf Urine Osmolality (300-1000) mosm/kg Ur Random Creatinine mg/dL U Random Total Protein (0.0-12.0) mg/dL Ur Random Sodium mmol/L Urine Opiates Screen (NEGATIVE) Urine Methadone Screen (NEGATIVE) Ur Barbiturates Screen (NEGATIVE) Ur Phencyclidine Scrn (NEGATIVE) Ur Amphetamines Screen (NEGATIVE) U Benzodiazepines Scrn (NEGATIVE) U Oth Cocaine Metabols (NEGATIVE) U Cannabinoids Screen (NEGATIVE) Blood Type Antibody Screen 01/05/18 01/05/18 01/05/18 Range/Units 10:37 07:53 07:53 WBC (4.8-10.8) K/uL RBC (4.40-5.90) Mil/uL Hgb (12.0-18.0) g/dL Hct (35.0-51.0) % MCV (80.0-94.0) fL MCH (27.0-31.0) pg MCHC (33.0-37.0) g/dL RDW (11.5-14.5) % Plt Count (130-400) K/uL MPV (7.2-11.7) fL Neut % (Auto) (50.0-75.0) % Lymph % (Auto) (20.0-40.0) % [place] % (Auto) (0.0-10.0) % Eos % (Auto) (0.0-4.0) % Baso % (Auto) (0.0-2.0) % Neut # (Auto) (1.8-7.0) K/uL Lymph # (Auto) (1.0-4.3) K/uL [place] # (Auto) (0.0-0.8) K/uL Eos # (Auto) (0.0-0.7) K/uL Baso # (Auto) (0.0-0.2) K/uL Neutrophils % (Manual) (50-75) % Band Neutrophils % (0-2) % Lymphocytes % (Manual) (20-40) % Monocytes % (Manual) (0-10) % Platelet Estimate (NORMAL) Hypochromasia (manual) Anisocytosis (manual) Target Cells PT 21.1 H (9.7-12.2) SECONDS INR 1.9 pO2 (30-55) mm/Hg VBG pH (7.32-7.43) VBG pCO2 (40-60) mmHg VBG HCO3 mmol/L VBG Total CO2 (22-28) mmol/L VBG O2 Sat (Calc) (40-65) % VBG Base Excess (0.0-2.0) mmol/L VBG Potassium (3.6-5.2) mmol/L Glucose (75-110) mg/dl Lactate (0.7-2.1) mmol/L Crit Value Called To Crit Value Called By Crit Value Read Back Blood Gas Notified Time Sodium 129 L (132-148) mmol/L Potassium 2.7 L (3.6-5.2) mmol/L Chloride 90 L (98-107) mmol/L Carbon Dioxide 26 (22-30) mmol/L Anion Gap 15 (10-20) BUN 45 H (9-20) mg/dL Creatinine 2.5 H (0.8-1.5) mg/dL Est GFR ( Amer) 33 Est GFR (Non-Af Amer) 27 POC Glucose (mg/dL) (65-110) mg/dL Random Glucose 173 H (75-110) mg/dL Lactic Acid 1.8 (0.7-2.1) mmol/L Calcium 7.3 L (8.6-10.4) mg/dl Phosphorus 1.2 L (2.5-4.5) mg/dL Magnesium 1.9 (1.6-2.3) mg/dL Total Bilirubin 7.8 H (0.2-1.3) mg/dL AST 107 H (17-59) U/L ALT 29 (21-72) U/L Alkaline Phosphatase 103 (38-126) U/L Ammonia (9-33) umol/L Total Protein 6.6 (6.3-8.3) g/dL Albumin 2.8 L (3.5-5.0) g/dL Globulin 3.8 (2.2-3.9) gm/dL Albumin/Globulin Ratio 0.7 L (1.0-2.1) Venous Blood Potassium (3.6-5.2) mmol/L Urine Color (YELLOW) Urine Clarity (Clear) Urine pH (5.0-8.0) Ur Specific [place] (1.003-1.030) Urine Protein (NEGATIVE) mg/dL Urine Glucose (UA) (Normal) mg/dL Urine Ketones (NEGATIVE) mg/dL Urine Blood (NEGATIVE) Urine Nitrate (NEGATIVE) Urine Bilirubin (NEGATIVE) Urine Urobilinogen (0.2-1.0) mg/dL Ur Leukocyte Esterase (Negative) Farhana/uL Urine WBC (Auto) (0-5) /hpf Urine RBC (Auto) (0-3) /hpf Hyaline Casts (0-2) /lpf Urine Osmolality (300-1000) mosm/kg Ur Random Creatinine mg/dL U Random Total Protein (0.0-12.0) mg/dL Ur Random Sodium mmol/L Urine Opiates Screen (NEGATIVE) Urine Methadone Screen (NEGATIVE) Ur Barbiturates Screen (NEGATIVE) Ur Phencyclidine Scrn (NEGATIVE) Ur Amphetamines Screen (NEGATIVE) U Benzodiazepines Scrn (NEGATIVE) U Oth Cocaine Metabols (NEGATIVE) U Cannabinoids Screen (NEGATIVE) Blood Type Antibody Screen 01/05/18 01/05/18 01/05/18 Range/Units 07:53 05:56 05:56 WBC 9.2 (4.8-10.8) K/uL RBC 2.25 L (4.40-5.90) Mil/uL Hgb 6.5 L* D (12.0-18.0) g/dL Hct 17.9 L (35.0-51.0) % MCV 79.9 L D (80.0-94.0) fL MCH 29.1 (27.0-31.0) pg MCHC 36.5 (33.0-37.0) g/dL RDW 17.0 H (11.5-14.5) % Plt Count 103 L D (130-400) K/uL MPV 7.7 (7.2-11.7) fL Neut % (Auto) 87.1 H (50.0-75.0) % Lymph % (Auto) 8.8 L (20.0-40.0) % [place] % (Auto) 3.8 (0.0-10.0) % Eos % (Auto) 0.1 (0.0-4.0) % Baso % (Auto) 0.2 (0.0-2.0) % Neut # (Auto) 8.0 H (1.8-7.0) K/uL Lymph # (Auto) 0.8 L (1.0-4.3) K/uL [place] # (Auto) 0.4 (0.0-0.8) K/uL Eos # (Auto) 0.0 (0.0-0.7) K/uL Baso # (Auto) 0.0 (0.0-0.2) K/uL Neutrophils % (Manual) 86 H (50-75) % Band Neutrophils % 3 H (0-2) % Lymphocytes % (Manual) 9 L (20-40) % Monocytes % (Manual) 2 (0-10) % Platelet Estimate Decreased L (NORMAL) Hypochromasia (manual) Slight Anisocytosis (manual) Slight Target Cells Moderate PT (9.7-12.2) SECONDS INR pO2 (30-55) mm/Hg VBG pH (7.32-7.43) VBG pCO2 (40-60) mmHg VBG HCO3 mmol/L VBG Total CO2 (22-28) mmol/L VBG O2 Sat (Calc) (40-65) % VBG Base Excess (0.0-2.0) mmol/L VBG Potassium (3.6-5.2) mmol/L Glucose (75-110) mg/dl Lactate (0.7-2.1) mmol/L Crit Value Called To Crit Value Called By Crit Value Read Back Blood Gas Notified Time Sodium (132-148) mmol/L Potassium (3.6-5.2) mmol/L Chloride (98-107) mmol/L Carbon Dioxide (22-30) mmol/L Anion Gap (10-20) BUN (9-20) mg/dL Creatinine (0.8-1.5) mg/dL Est GFR ( Amer) Est GFR (Non-Af Amer) POC Glucose (mg/dL) (65-110) mg/dL Random Glucose (75-110) mg/dL Lactic Acid (0.7-2.1) mmol/L Calcium (8.6-10.4) mg/dl Phosphorus (2.5-4.5) mg/dL Magnesium (1.6-2.3) mg/dL Total Bilirubin (0.2-1.3) mg/dL AST (17-59) U/L ALT (21-72) U/L Alkaline Phosphatase (38-126) U/L Ammonia (9-33) umol/L Total Protein (6.3-8.3) g/dL Albumin (3.5-5.0) g/dL Globulin (2.2-3.9) gm/dL Albumin/Globulin Ratio (1.0-2.1) Venous Blood Potassium (3.6-5.2) mmol/L Urine Color Di (YELLOW) Urine Clarity Clear (Clear) Urine pH 5.0 (5.0-8.0) Ur Specific [place] 1.010 (1.003-1.030) Urine Protein Negative (NEGATIVE) mg/dL Urine Glucose (UA) Normal (Normal) mg/dL Urine Ketones Negative (NEGATIVE) mg/dL Urine Blood Negative (NEGATIVE) Urine Nitrate Negative (NEGATIVE) Urine Bilirubin Negative (NEGATIVE) Urine Urobilinogen 4.0 (0.2-1.0) mg/dL Ur Leukocyte Esterase Neg (Negative) Farhana/uL Urine WBC (Auto) 1 (0-5) /hpf Urine RBC (Auto) 1 (0-3) /hpf Hyaline Casts 0-2 (0-2) /lpf Urine Osmolality (300-1000) mosm/kg Ur Random Creatinine mg/dL U Random Total Protein (0.0-12.0) mg/dL Ur Random Sodium mmol/L Urine Opiates Screen Negative (NEGATIVE) Urine Methadone Screen Negative (NEGATIVE) Ur Barbiturates Screen Negative (NEGATIVE) Ur Phencyclidine Scrn Negative (NEGATIVE) Ur Amphetamines Screen Negative (NEGATIVE) U Benzodiazepines Scrn Negative (NEGATIVE) U Oth Cocaine Metabols Negative (NEGATIVE) U Cannabinoids Screen Negative (NEGATIVE) Blood Type Antibody Screen 01/05/18 01/05/18 01/05/18 Range/Units 05:46 00:28 00:22 WBC (4.8-10.8) K/uL RBC (4.40-5.90) Mil/uL Hgb (12.0-18.0) g/dL Hct (35.0-51.0) % MCV (80.0-94.0) fL MCH (27.0-31.0) pg MCHC (33.0-37.0) g/dL RDW (11.5-14.5) % Plt Count (130-400) K/uL MPV (7.2-11.7) fL Neut % (Auto) (50.0-75.0) % Lymph % (Auto) (20.0-40.0) % [place] % (Auto) (0.0-10.0) % Eos % (Auto) (0.0-4.0) % Baso % (Auto) (0.0-2.0) % Neut # (Auto) (1.8-7.0) K/uL Lymph # (Auto) (1.0-4.3) K/uL [place] # (Auto) (0.0-0.8) K/uL Eos # (Auto) (0.0-0.7) K/uL Baso # (Auto) (0.0-0.2) K/uL Neutrophils % (Manual) (50-75) % Band Neutrophils % (0-2) % Lymphocytes % (Manual) (20-40) % Monocytes % (Manual) (0-10) % Platelet Estimate (NORMAL) Hypochromasia (manual) Anisocytosis (manual) Target Cells PT (9.7-12.2) SECONDS INR pO2 (30-55) mm/Hg VBG pH (7.32-7.43) VBG pCO2 (40-60) mmHg VBG HCO3 mmol/L VBG Total CO2 (22-28) mmol/L VBG O2 Sat (Calc) (40-65) % VBG Base Excess (0.0-2.0) mmol/L VBG Potassium (3.6-5.2) mmol/L Glucose (75-110) mg/dl Lactate (0.7-2.1) mmol/L Crit Value Called To Crit Value Called By Crit Value Read Back Blood Gas Notified Time Sodium (132-148) mmol/L Potassium (3.6-5.2) mmol/L Chloride (98-107) mmol/L Carbon Dioxide (22-30) mmol/L Anion Gap (10-20) BUN (9-20) mg/dL Creatinine (0.8-1.5) mg/dL Est GFR ( Amer) Est GFR (Non-Af Amer) POC Glucose (mg/dL) 136 H 175 H (65-110) mg/dL Random Glucose (75-110) mg/dL Lactic Acid 2.0 (0.7-2.1) mmol/L Calcium (8.6-10.4) mg/dl Phosphorus (2.5-4.5) mg/dL Magnesium (1.6-2.3) mg/dL Total Bilirubin (0.2-1.3) mg/dL AST (17-59) U/L ALT (21-72) U/L Alkaline Phosphatase (38-126) U/L Ammonia (9-33) umol/L Total Protein (6.3-8.3) g/dL Albumin (3.5-5.0) g/dL Globulin (2.2-3.9) gm/dL Albumin/Globulin Ratio (1.0-2.1) Venous Blood Potassium (3.6-5.2) mmol/L Urine Color (YELLOW) Urine Clarity (Clear) Urine pH (5.0-8.0) Ur Specific [place] (1.003-1.030) Urine Protein (NEGATIVE) mg/dL Urine Glucose (UA) (Normal) mg/dL Urine Ketones (NEGATIVE) mg/dL Urine Blood (NEGATIVE) Urine Nitrate (NEGATIVE) Urine Bilirubin (NEGATIVE) Urine Urobilinogen (0.2-1.0) mg/dL Ur Leukocyte Esterase (Negative) Farhana/uL Urine WBC (Auto) (0-5) /hpf Urine RBC (Auto) (0-3) /hpf Hyaline Casts (0-2) /lpf Urine Osmolality (300-1000) mosm/kg Ur Random Creatinine mg/dL U Random Total Protein (0.0-12.0) mg/dL Ur Random Sodium mmol/L Urine Opiates Screen (NEGATIVE) Urine Methadone Screen (NEGATIVE) Ur Barbiturates Screen (NEGATIVE) Ur Phencyclidine Scrn (NEGATIVE) Ur Amphetamines Screen (NEGATIVE) U Benzodiazepines Scrn (NEGATIVE) U Oth Cocaine Metabols (NEGATIVE) U Cannabinoids Screen (NEGATIVE) Blood Type Antibody Screen 01/04/18 01/04/18 01/04/18 Range/Units 20:23 20:23 15:43 WBC (4.8-10.8) K/uL RBC (4.40-5.90) Mil/uL Hgb (12.0-18.0) g/dL Hct (35.0-51.0) % MCV (80.0-94.0) fL MCH (27.0-31.0) pg MCHC (33.0-37.0) g/dL RDW (11.5-14.5) % Plt Count (130-400) K/uL MPV (7.2-11.7) fL Neut % (Auto) (50.0-75.0) % Lymph % (Auto) (20.0-40.0) % [place] % (Auto) (0.0-10.0) % Eos % (Auto) (0.0-4.0) % Baso % (Auto) (0.0-2.0) % Neut # (Auto) (1.8-7.0) K/uL Lymph # (Auto) (1.0-4.3) K/uL [place] # (Auto) (0.0-0.8) K/uL Eos # (Auto) (0.0-0.7) K/uL Baso # (Auto) (0.0-0.2) K/uL Neutrophils % (Manual) (50-75) % Band Neutrophils % (0-2) % Lymphocytes % (Manual) (20-40) % Monocytes % (Manual) (0-10) % Platelet Estimate (NORMAL) Hypochromasia (manual) Anisocytosis (manual) Target Cells PT (9.7-12.2) SECONDS INR pO2 (30-55) mm/Hg VBG pH (7.32-7.43) VBG pCO2 (40-60) mmHg VBG HCO3 mmol/L VBG Total CO2 (22-28) mmol/L VBG O2 Sat (Calc) (40-65) % VBG Base Excess (0.0-2.0) mmol/L VBG Potassium (3.6-5.2) mmol/L Glucose (75-110) mg/dl Lactate (0.7-2.1) mmol/L Crit Value Called To Crit Value Called By Crit Value Read Back Blood Gas Notified Time Sodium 127 L (132-148) mmol/L Potassium 4.1 (3.6-5.2) mmol/L Chloride 86 L (98-107) mmol/L Carbon Dioxide 22 (22-30) mmol/L Anion Gap 23 H (10-20) BUN 40 H (9-20) mg/dL Creatinine 2.4 H (0.8-1.5) mg/dL Est GFR ( Amer) 35 Est GFR (Non-Af Amer) 29 POC Glucose (mg/dL) (65-110) mg/dL Random Glucose 172 H (75-110) mg/dL Lactic Acid 5.3 H* (0.7-2.1) mmol/L Calcium 6.2 L (8.6-10.4) mg/dl Phosphorus 4.0 (2.5-4.5) mg/dL Magnesium 1.8 (1.6-2.3) mg/dL Total Bilirubin (0.2-1.3) mg/dL AST (17-59) U/L ALT (21-72) U/L Alkaline Phosphatase (38-126) U/L Ammonia 64 H D (9-33) umol/L Total Protein (6.3-8.3) g/dL Albumin (3.5-5.0) g/dL Globulin (2.2-3.9) gm/dL Albumin/Globulin Ratio (1.0-2.1) Venous Blood Potassium (3.6-5.2) mmol/L Urine Color (YELLOW) Urine Clarity (Clear) Urine pH (5.0-8.0) Ur Specific [place] (1.003-1.030) Urine Protein (NEGATIVE) mg/dL Urine Glucose (UA) (Normal) mg/dL Urine Ketones (NEGATIVE) mg/dL Urine Blood (NEGATIVE) Urine Nitrate (NEGATIVE) Urine Bilirubin (NEGATIVE) Urine Urobilinogen (0.2-1.0) mg/dL Ur Leukocyte Esterase (Negative) Farhana/uL Urine WBC (Auto) (0-5) /hpf Urine RBC (Auto) (0-3) /hpf Hyaline Casts (0-2) /lpf Urine Osmolality (300-1000) mosm/kg Ur Random Creatinine mg/dL U Random Total Protein (0.0-12.0) mg/dL Ur Random Sodium mmol/L Urine Opiates Screen (NEGATIVE) Urine Methadone Screen (NEGATIVE) Ur Barbiturates Screen (NEGATIVE) Ur Phencyclidine Scrn (NEGATIVE) Ur Amphetamines Screen (NEGATIVE) U Benzodiazepines Scrn (NEGATIVE) U Oth Cocaine Metabols (NEGATIVE) U Cannabinoids Screen (NEGATIVE) Blood Type Antibody Screen 01/04/18 Range/Units 14:10 WBC (4.8-10.8) K/uL RBC (4.40-5.90) Mil/uL Hgb (12.0-18.0) g/dL Hct (35.0-51.0) % MCV (80.0-94.0) fL MCH (27.0-31.0) pg MCHC (33.0-37.0) g/dL RDW (11.5-14.5) % Plt Count (130-400) K/uL MPV (7.2-11.7) fL Neut % (Auto) (50.0-75.0) % Lymph % (Auto) (20.0-40.0) % [place] % (Auto) (0.0-10.0) % Eos % (Auto) (0.0-4.0) % Baso % (Auto) (0.0-2.0) % Neut # (Auto) (1.8-7.0) K/uL Lymph # (Auto) (1.0-4.3) K/uL [place] # (Auto) (0.0-0.8) K/uL Eos # (Auto) (0.0-0.7) K/uL Baso # (Auto) (0.0-0.2) K/uL Neutrophils % (Manual) (50-75) % Band Neutrophils % (0-2) % Lymphocytes % (Manual) (20-40) % Monocytes % (Manual) (0-10) % Platelet Estimate (NORMAL) Hypochromasia (manual) Anisocytosis (manual) Target Cells PT (9.7-12.2) SECONDS INR pO2 (30-55) mm/Hg VBG pH (7.32-7.43) VBG pCO2 (40-60) mmHg VBG HCO3 mmol/L VBG Total CO2 (22-28) mmol/L VBG O2 Sat (Calc) (40-65) % VBG Base Excess (0.0-2.0) mmol/L VBG Potassium (3.6-5.2) mmol/L Glucose (75-110) mg/dl Lactate (0.7-2.1) mmol/L Crit Value Called To Crit Value Called By Crit Value Read Back Blood Gas Notified Time Sodium (132-148) mmol/L Potassium (3.6-5.2) mmol/L Chloride (98-107) mmol/L Carbon Dioxide (22-30) mmol/L Anion Gap (10-20) BUN (9-20) mg/dL Creatinine (0.8-1.5) mg/dL Est GFR ( Amer) Est GFR (Non-Af Amer) POC Glucose (mg/dL) (65-110) mg/dL Random Glucose (75-110) mg/dL Lactic Acid (0.7-2.1) mmol/L Calcium (8.6-10.4) mg/dl Phosphorus (2.5-4.5) mg/dL Magnesium (1.6-2.3) mg/dL Total Bilirubin (0.2-1.3) mg/dL AST (17-59) U/L ALT (21-72) U/L Alkaline Phosphatase (38-126) U/L Ammonia (9-33) umol/L Total Protein (6.3-8.3) g/dL Albumin (3.5-5.0) g/dL Globulin (2.2-3.9) gm/dL Albumin/Globulin Ratio (1.0-2.1) Venous Blood Potassium (3.6-5.2) mmol/L Urine Color (YELLOW) Urine Clarity (Clear) Urine pH (5.0-8.0) Ur Specific [place] (1.003-1.030) Urine Protein (NEGATIVE) mg/dL Urine Glucose (UA) (Normal) mg/dL Urine Ketones (NEGATIVE) mg/dL Urine Blood (NEGATIVE) Urine Nitrate (NEGATIVE) Urine Bilirubin (NEGATIVE) Urine Urobilinogen (0.2-1.0) mg/dL Ur Leukocyte Esterase (Negative) Farhana/uL Urine WBC (Auto) (0-5) /hpf Urine RBC (Auto) (0-3) /hpf Hyaline Casts (0-2) /lpf Urine Osmolality (300-1000) mosm/kg Ur Random Creatinine mg/dL U Random Total Protein (0.0-12.0) mg/dL Ur Random Sodium mmol/L Urine Opiates Screen (NEGATIVE) Urine Methadone Screen (NEGATIVE) Ur Barbiturates Screen (NEGATIVE) Ur Phencyclidine Scrn (NEGATIVE) Ur Amphetamines Screen (NEGATIVE) U Benzodiazepines Scrn (NEGATIVE) U Oth Cocaine Metabols (NEGATIVE) U Cannabinoids Screen (NEGATIVE) Blood Type O POSITIVE Antibody Screen Negative Laboratory Results - last 24 hr 01/04/18 01/04/18 01/04/18 14:10 15:43 20:23 WBC RBC Hgb Hct MCV MCH MCHC RDW Plt Count MPV Neut % (Auto) Lymph % (Auto) [place] % (Auto) Eos % (Auto) Baso % (Auto) Neut # (Auto) Lymph # (Auto) [place] # (Auto) Eos # (Auto) Baso # (Auto) Neutrophils % (Manual) Band Neutrophils % Lymphocytes % (Manual) Monocytes % (Manual) Platelet Estimate Hypochromasia (manual) Anisocytosis (manual) Target Cells PT INR pO2 VBG pH VBG pCO2 VBG HCO3 VBG Total CO2 VBG O2 Sat (Calc) VBG Base Excess VBG Potassium Glucose Lactate Crit Value Called To Crit Value Called By Crit Value Read Back Blood Gas Notified Time Sodium 127 L Potassium 4.1 Chloride 86 L Carbon Dioxide 22 Anion Gap 23 H BUN 40 H Creatinine 2.4 H Est GFR ( Amer) 35 Est GFR (Non-Af Amer) 29 POC Glucose (mg/dL) Random Glucose 172 H Lactic Acid Calcium 6.2 L Phosphorus 4.0 Magnesium 1.8 Total Bilirubin AST ALT Alkaline Phosphatase Ammonia 64 H D Total Protein Albumin Globulin Albumin/Globulin Ratio Venous Blood Potassium Urine Color Urine Clarity Urine pH Ur Specific [place] Urine Protein Urine Glucose (UA) Urine Ketones Urine Blood Urine Nitrate Urine Bilirubin Urine Urobilinogen Ur Leukocyte Esterase Urine WBC (Auto) Urine RBC (Auto) Hyaline Casts Urine Osmolality Ur Random Creatinine U Random Total Protein Ur Random Sodium Urine Opiates Screen Urine Methadone Screen Ur Barbiturates Screen Ur Phencyclidine Scrn Ur Amphetamines Screen U Benzodiazepines Scrn U Oth Cocaine Metabols U Cannabinoids Screen Blood Type O POSITIVE Antibody Screen Negative 01/04/18 01/05/18 01/05/18 20:23 00:22 00:28 WBC RBC Hgb Hct MCV MCH MCHC RDW Plt Count MPV Neut % (Auto) Lymph % (Auto) [place] % (Auto) Eos % (Auto) Baso % (Auto) Neut # (Auto) Lymph # (Auto) [place] # (Auto) Eos # (Auto) Baso # (Auto) Neutrophils % (Manual) Band Neutrophils % Lymphocytes % (Manual) Monocytes % (Manual) Platelet Estimate Hypochromasia (manual) Anisocytosis (manual) Target Cells PT INR pO2 VBG pH VBG pCO2 VBG HCO3 VBG Total CO2 VBG O2 Sat (Calc) VBG Base Excess VBG Potassium Glucose Lactate Crit Value Called To Crit Value Called By Crit Value Read Back Blood Gas Notified Time Sodium Potassium Chloride Carbon Dioxide Anion Gap BUN Creatinine Est GFR ( Amer) Est GFR (Non-Af Amer) POC Glucose (mg/dL) 175 H Random Glucose Lactic Acid 5.3 H* 2.0 Calcium Phosphorus Magnesium Total Bilirubin AST ALT Alkaline Phosphatase Ammonia Total Protein Albumin Globulin Albumin/Globulin Ratio Venous Blood Potassium Urine Color Urine Clarity Urine pH Ur Specific [place] Urine Protein Urine Glucose (UA) Urine Ketones Urine Blood Urine Nitrate Urine Bilirubin Urine Urobilinogen Ur Leukocyte Esterase Urine WBC (Auto) Urine RBC (Auto) Hyaline Casts Urine Osmolality Ur Random Creatinine U Random Total Protein Ur Random Sodium Urine Opiates Screen Urine Methadone Screen Ur Barbiturates Screen Ur Phencyclidine Scrn Ur Amphetamines Screen U Benzodiazepines Scrn U Oth Cocaine Metabols U Cannabinoids Screen Blood Type Antibody Screen 01/05/18 01/05/18 01/05/18 05:46 05:56 05:56 WBC RBC Hgb Hct MCV MCH MCHC RDW Plt Count MPV Neut % (Auto) Lymph % (Auto) [place] % (Auto) Eos % (Auto) Baso % (Auto) Neut # (Auto) Lymph # (Auto) [place] # (Auto) Eos # (Auto) Baso # (Auto) Neutrophils % (Manual) Band Neutrophils % Lymphocytes % (Manual) Monocytes % (Manual) Platelet Estimate Hypochromasia (manual) Anisocytosis (manual) Target Cells PT INR pO2 VBG pH VBG pCO2 VBG HCO3 VBG Total CO2 VBG O2 Sat (Calc) VBG Base Excess VBG Potassium Glucose Lactate Crit Value Called To Crit Value Called By Crit Value Read Back Blood Gas Notified Time Sodium Potassium Chloride Carbon Dioxide Anion Gap BUN Creatinine Est GFR ( Amer) Est GFR (Non-Af Amer) POC Glucose (mg/dL) 136 H Random Glucose Lactic Acid Calcium Phosphorus Magnesium Total Bilirubin AST ALT Alkaline Phosphatase Ammonia Total Protein Albumin Globulin Albumin/Globulin Ratio Venous Blood Potassium Urine Color Di Urine Clarity Clear Urine pH 5.0 Ur Specific [place] 1.010 Urine Protein Negative Urine Glucose (UA) Normal Urine Ketones Negative Urine Blood Negative Urine Nitrate Negative Urine Bilirubin Negative Urine Urobilinogen 4.0 Ur Leukocyte Esterase Neg Urine WBC (Auto) 1 Urine RBC (Auto) 1 Hyaline Casts 0-2 Urine Osmolality Ur Random Creatinine U Random Total Protein Ur Random Sodium Urine Opiates Screen Negative Urine Methadone Screen Negative Ur Barbiturates Screen Negative Ur Phencyclidine Scrn Negative Ur Amphetamines Screen Negative U Benzodiazepines Scrn Negative U Oth Cocaine Metabols Negative U Cannabinoids Screen Negative Blood Type Antibody Screen 01/05/18 01/05/18 01/05/18 07:53 07:53 07:53 WBC 9.2 RBC 2.25 L Hgb 6.5 L* D Hct 17.9 L MCV 79.9 L D MCH 29.1 MCHC 36.5 RDW 17.0 H Plt Count 103 L D MPV 7.7 Neut % (Auto) 87.1 H Lymph % (Auto) 8.8 L [place] % (Auto) 3.8 Eos % (Auto) 0.1 Baso % (Auto) 0.2 Neut # (Auto) 8.0 H Lymph # (Auto) 0.8 L [place] # (Auto) 0.4 Eos # (Auto) 0.0 Baso # (Auto) 0.0 Neutrophils % (Manual) 86 H Band Neutrophils % 3 H Lymphocytes % (Manual) 9 L Monocytes % (Manual) 2 Platelet Estimate Decreased L Hypochromasia (manual) Slight Anisocytosis (manual) Slight Target Cells Moderate PT INR pO2 VBG pH VBG pCO2 VBG HCO3 VBG Total CO2 VBG O2 Sat (Calc) VBG Base Excess VBG Potassium Glucose Lactate Crit Value Called To Crit Value Called By Crit Value Read Back Blood Gas Notified Time Sodium 129 L Potassium 2.7 L Chloride 90 L Carbon Dioxide 26 Anion Gap 15 BUN 45 H Creatinine 2.5 H Est GFR ( Amer) 33 Est GFR (Non-Af Amer) 27 POC Glucose (mg/dL) Random Glucose 173 H Lactic Acid 1.8 Calcium 7.3 L Phosphorus 1.2 L Magnesium 1.9 Total Bilirubin 7.8 H AST 107 H ALT 29 Alkaline Phosphatase 103 Ammonia Total Protein 6.6 Albumin 2.8 L Globulin 3.8 Albumin/Globulin Ratio 0.7 L Venous Blood Potassium Urine Color Urine Clarity Urine pH Ur Specific [place] Urine Protein Urine Glucose (UA) Urine Ketones Urine Blood Urine Nitrate Urine Bilirubin Urine Urobilinogen Ur Leukocyte Esterase Urine WBC (Auto) Urine RBC (Auto) Hyaline Casts Urine Osmolality Ur Random Creatinine U Random Total Protein Ur Random Sodium Urine Opiates Screen Urine Methadone Screen Ur Barbiturates Screen Ur Phencyclidine Scrn Ur Amphetamines Screen U Benzodiazepines Scrn U Oth Cocaine Metabols U Cannabinoids Screen Blood Type Antibody Screen 01/05/18 01/05/18 01/05/18 10:37 11:36 14:05 WBC RBC Hgb Hct MCV MCH MCHC RDW Plt Count MPV Neut % (Auto) Lymph % (Auto) [place] % (Auto) Eos % (Auto) Baso % (Auto) Neut # (Auto) Lymph # (Auto) [place] # (Auto) Eos # (Auto) Baso # (Auto) Neutrophils % (Manual) Band Neutrophils % Lymphocytes % (Manual) Monocytes % (Manual) Platelet Estimate Hypochromasia (manual) Anisocytosis (manual) Target Cells PT 21.1 H INR 1.9 pO2 20 L VBG pH 7.31 L VBG pCO2 44 VBG HCO3 19.8 VBG Total CO2 23.6 VBG O2 Sat (Calc) 47.1 VBG Base Excess -4.1 L VBG Potassium 9.8 H* Glucose 536 H* D Lactate 1.9 Crit Value Called To Dr darrell diane Crit 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 Crit Value Read Back Y Blood Gas Notified Time 1410 Sodium 116.0 L* Potassium Chloride 87.0 L Carbon Dioxide Anion Gap BUN Creatinine Est GFR ( Amer) Est GFR (Non-Af Amer) POC Glucose (mg/dL) 209 H Random Glucose Lactic Acid Calcium Phosphorus Magnesium Total Bilirubin AST ALT Alkaline Phosphatase Ammonia Total Protein Albumin Globulin Albumin/Globulin Ratio Venous Blood Potassium 9.8 H* Urine Color Urine Clarity Urine pH Ur Specific [place] Urine Protein Urine Glucose (UA) Urine Ketones Urine Blood Urine Nitrate Urine Bilirubin Urine Urobilinogen Ur Leukocyte Esterase Urine WBC (Auto) Urine RBC (Auto) Hyaline Casts Urine Osmolality Ur Random Creatinine U Random Total Protein Ur Random Sodium Urine Opiates Screen Urine Methadone Screen Ur Barbiturates Screen Ur Phencyclidine Scrn Ur Amphetamines Screen U Benzodiazepines Scrn U Oth Cocaine Metabols U Cannabinoids Screen Blood Type Antibody Screen 01/05/18 01/05/18 01/05/18 14:12 14:12 14:12 WBC 7.2 RBC 2.35 L Hgb 6.7 L Hct 19.0 L MCV 80.7 MCH 28.7 MCHC 35.5 RDW 16.8 H Plt Count 85 L MPV 8.3 Neut % (Auto) 85.4 H Lymph % (Auto) 10.1 L [place] % (Auto) 4.3 Eos % (Auto) 0.0 Baso % (Auto) 0.2 Neut # (Auto) 6.2 Lymph # (Auto) 0.7 L [place] # (Auto) 0.3 Eos # (Auto) 0.0 Baso # (Auto) 0.0 Neutrophils % (Manual) Band Neutrophils % Lymphocytes % (Manual) Monocytes % (Manual) Platelet Estimate Hypochromasia (manual) Anisocytosis (manual) Target Cells PT 23.5 H INR 2.1 pO2 VBG pH VBG pCO2 VBG HCO3 VBG Total CO2 VBG O2 Sat (Calc) VBG Base Excess VBG Potassium Glucose Lactate Crit Value Called To Crit Value Called By Crit Value Read Back Blood Gas Notified Time Sodium Potassium Chloride Carbon Dioxide Anion Gap BUN Creatinine Est GFR ( Amer) Est GFR (Non-Af Amer) POC Glucose (mg/dL) Random Glucose Lactic Acid Calcium Phosphorus Magnesium Total Bilirubin AST ALT Alkaline Phosphatase Ammonia 23 D Total Protein Albumin Globulin Albumin/Globulin Ratio Venous Blood Potassium Urine Color Urine Clarity Urine pH Ur Specific [place] Urine Protein Urine Glucose (UA) Urine Ketones Urine Blood Urine Nitrate Urine Bilirubin Urine Urobilinogen Ur Leukocyte Esterase Urine WBC (Auto) Urine RBC (Auto) Hyaline Casts Urine Osmolality Ur Random Creatinine U Random Total Protein Ur Random Sodium Urine Opiates Screen Urine Methadone Screen Ur Barbiturates Screen Ur Phencyclidine Scrn Ur Amphetamines Screen U Benzodiazepines Scrn U Oth Cocaine Metabols U Cannabinoids Screen Blood Type Antibody Screen 01/05/18 01/05/18 01/05/18 15:16 15:16 15:16 WBC 10.2 RBC 2.87 L Hgb 8.3 L Hct 23.0 L MCV 80.1 MCH 28.8 MCHC 35.9 RDW 16.7 H Plt Count 96 L MPV 8.1 Neut % (Auto) 85.3 H Lymph % (Auto) 10.4 L [place] % (Auto) 3.6 Eos % (Auto) 0.1 Baso % (Auto) 0.6 Neut # (Auto) 8.7 H Lymph # (Auto) 1.1 [place] # (Auto) 0.4 Eos # (Auto) 0.0 Baso # (Auto) 0.1 Neutrophils % (Manual) Band Neutrophils % Lymphocytes % (Manual) Monocytes % (Manual) Platelet Estimate Hypochromasia (manual) Anisocytosis (manual) Target Cells PT INR pO2 VBG pH VBG pCO2 VBG HCO3 VBG Total CO2 VBG O2 Sat (Calc) VBG Base Excess VBG Potassium Glucose Lactate Crit Value Called To Crit Value Called By Crit Value Read Back Blood Gas Notified Time Sodium 130 L Potassium 3.0 L Chloride 90 L Carbon Dioxide 25 Anion Gap 18 BUN 43 H Creatinine 2.4 H Est GFR ( Amer) 35 Est GFR (Non-Af Amer) 29 POC Glucose (mg/dL) Random Glucose 184 H Lactic Acid Calcium 7.5 L Phosphorus 2.3 L Magnesium 1.7 Total Bilirubin 10.2 H AST 109 H ALT 29 Alkaline Phosphatase 123 Ammonia Total Protein 7.1 Albumin 3.1 L Globulin 4.0 H Albumin/Globulin Ratio 0.8 L Venous Blood Potassium Urine Color Urine Clarity Urine pH Ur Specific [place] Urine Protein Urine Glucose (UA) Urine Ketones Urine Blood Urine Nitrate Urine Bilirubin Urine Urobilinogen Ur Leukocyte Esterase Urine WBC (Auto) Urine RBC (Auto) Hyaline Casts Urine Osmolality Ur Random Creatinine 80.1 U Random Total Protein 25.0 H Ur Random Sodium 10 Urine Opiates Screen Urine Methadone Screen Ur Barbiturates Screen Ur Phencyclidine Scrn Ur Amphetamines Screen U Benzodiazepines Scrn U Oth Cocaine Metabols U Cannabinoids Screen Blood Type Antibody Screen 01/05/18 01/05/18 01/05/18 15:16 15:16 15:53 WBC RBC Hgb Hct MCV MCH MCHC RDW Plt Count MPV Neut % (Auto) Lymph % (Auto) [place] % (Auto) Eos % (Auto) Baso % (Auto) Neut # (Auto) Lymph # (Auto) [place] # (Auto) Eos # (Auto) Baso # (Auto) Neutrophils % (Manual) Band Neutrophils % Lymphocytes % (Manual) Monocytes % (Manual) Platelet Estimate Hypochromasia (manual) Anisocytosis (manual) Target Cells PT 21.2 H INR 1.9 pO2 VBG pH VBG pCO2 VBG HCO3 VBG Total CO2 VBG O2 Sat (Calc) VBG Base Excess VBG Potassium Glucose Lactate Crit Value Called To Crit Value Called By Crit Value Read Back Blood Gas Notified Time Sodium Potassium Chloride Carbon Dioxide Anion Gap BUN Creatinine Est GFR ( Amer) Est GFR (Non-Af Amer) POC Glucose (mg/dL) Random Glucose Lactic Acid Calcium Phosphorus Magnesium Total Bilirubin AST ALT Alkaline Phosphatase Ammonia 16 D Total Protein Albumin Globulin Albumin/Globulin Ratio Venous Blood Potassium Urine Color Urine Clarity Urine pH Ur Specific [place] Urine Protein Urine Glucose (UA) Urine Ketones Urine Blood Urine Nitrate Urine Bilirubin Urine Urobilinogen Ur Leukocyte Esterase Urine WBC (Auto) Urine RBC (Auto) Hyaline Casts Urine Osmolality 318 Ur Random Creatinine U Random Total Protein Ur Random Sodium Urine Opiates Screen Urine Methadone Screen Ur Barbiturates Screen Ur Phencyclidine Scrn Ur Amphetamines Screen U Benzodiazepines Scrn U Oth Cocaine Metabols U Cannabinoids Screen Blood Type Antibody Screen 01/05/18 17:42 WBC RBC Hgb Hct MCV MCH MCHC RDW Plt Count MPV Neut % (Auto) Lymph % (Auto) [place] % (Auto) Eos % (Auto) Baso % (Auto) Neut # (Auto) Lymph # (Auto) [place] # (Auto) Eos # (Auto) Baso # (Auto) Neutrophils % (Manual) Band Neutrophils % Lymphocytes % (Manual) Monocytes % (Manual) Platelet Estimate Hypochromasia (manual) Anisocytosis (manual) Target Cells PT INR pO2 VBG pH VBG pCO2 VBG HCO3 VBG Total CO2 VBG O2 Sat (Calc) VBG Base Excess VBG Potassium Glucose Lactate Crit Value Called To Crit Value Called By Crit Value Read Back Blood Gas Notified Time Sodium Potassium Chloride Carbon Dioxide Anion Gap BUN Creatinine Est GFR ( Amer) Est GFR (Non-Af Amer) POC Glucose (mg/dL) 216 H Random Glucose Lactic Acid Calcium Phosphorus Magnesium Total Bilirubin AST ALT Alkaline Phosphatase Ammonia Total Protein Albumin Globulin Albumin/Globulin Ratio Venous Blood Potassium Urine Color Urine Clarity Urine pH Ur Specific [place] Urine Protein Urine Glucose (UA) Urine Ketones Urine Blood Urine Nitrate Urine Bilirubin Urine Urobilinogen Ur Leukocyte Esterase Urine WBC (Auto) Urine RBC (Auto) Hyaline Casts Urine Osmolality Ur Random Creatinine U Random Total Protein Ur Random Sodium Urine Opiates Screen Urine Methadone Screen Ur Barbiturates Screen Ur Phencyclidine Scrn Ur Amphetamines Screen U Benzodiazepines Scrn U Oth Cocaine Metabols U Cannabinoids Screen Blood Type Antibody Screen Fingerstick Blood Sugar Results: 216 Critical Care Progress Note - Nutrition Nutrition: Nutrition Category Date Time Status NPO Diet [DIET] Diets 01/04/18 Dinner Active Assessment/Plan - Assessment and Plan (Free Text) Assessment: This is a 52 year old male with PMHx of Liver Cirrhosis with recurrent ascites, hepatic encephalopathy, ?chronic pancreatitis, with pancreatic insufficiency, Anemia of Chronic Disease admitted for SEVERE Anemia, Hypokalemi, ARF, AMS likely 2/2 Hepatic Encephalopathy, ? GIB. Plan: Neuro: GCS 15 A: AMS 2/2 Hepatic Encephalopathy GI: A: GIB?? - Hemoglobin 2.9 on admission, no hx of AC use - Prior EGD 07/2017 - no varices noted - Stool Occult - negative - PPI Drip, Octreotide - EGD scheduled for 01/06 A: Decompensated Liver Cirrhosis - MELD score on admission 32, with Mortality of 53% - - CT Chest, abdomen, pelvis: Increased number of hepatic lesions lung poorly characterized in the absence of intravenous contrast.Extensive abdominal ascites and small pleural effusions. Nonspecific hyperdense area layering dependently within the ascites on the left, not present on previous CT scan dated 07/31/2017.Nonspecific thickening of the colon which may be reactive in the setting of ascites or may represent colitis. Mild left hydroureteronephrosis without evidence of obstructive calculus. - Abdominal US: A: Ascites - Noted on CT abdomen, pelvis and abdominal us - Paracentesis ordered with cytology to rule out SBP - Started on Rocephin 1 gram daily for prophylaxis A: Hepatic Encephalopathy - Ammonia <20 on admission, - Refrain from Lactulose, Xifaximin - until electrolytes normalize A: Possible Chronic Pancreatitis, Pancreatic insufficiency - Restarted Pancreaze 21K PO TIDCC Previous admission 07/2017: - Per Dr. Sotuh, he suspects pancreatic insufficiency as possible cause due to low stool pancreatic elastase and ordered an MRCP which was unable to be obtained due to patient restlessness - Dr. South consulted Dr. Guerrero for evaluation of possible chronic pancreatitis and possible EUS work up * Per Dr. Guerrero, pursue EUS as an outpatient for definitive diagnosis of chronic pancreatitis * Pancreatic enzymes were started with meals (Cholestyramine Resin (Questran) 4 gm PO [facility]ID[facility]) and Aldactone increased to 50 mg PO BID by GI team * [place] [address] units TID with meals Previous Admission 07/2017 - Endoscopy (07/28): small hiatal hernia, patchy mild inflammation in gastric antrum biopsies, scalloped mucosa found in duodenum, suspicious for celiac disease- biopsied; Biopsy: Benign - Colonoscopy (07/28): internal hemorrhoids, mucosal nodule in the sigmoid colon , in transverse colon and in the ascending colon- biopsied; Biopsy; benign Renal: A: ARF - Normal Baseline - Continue with IVF - Possible Hepatorenal syndrome? A: Electrolyte imbalance - Hypokalemia 1.4 on admission - Aggressively replenishing all electrolytes Heme/ Onc: A: Anemia of chronic disease - Chronic likely 2/2 bone supression from ETOH - Concern for GIB with recent report of dark, tarry stools - Baseline hemoglobin 8s - 2.9 on admission - Received total 3 units PRBCs, 2 FFP - Hemoglobin now stable, no active bleeding - Continue to monitor A: Coagulopathy - INR - 2.3 admission - S/P Vitamin K x 15 mg total - FFP x 2 - Continue to monitor Psych: A: ETOH Abuse - Will receive MV, thiamine, folic IV then PO once patient is not NPO - Alcohol level 25 on admission - Ativan PRN Prophylaxis - Protonix Drip - SCDs, VTE c/i - As per previous admission: DNR/DNI after palliative care discussion 07/2017. POLST form was filled out during that admission. - PT eval, speech, and swallow eval - Lines: R PICC DW Dr. Johnston, Darrell Diane DO, PGY-1 <Dominic Johnston - Last Filed: 01/07/18 19:49> CCU Objective - Vital Signs / Intake & Output Vital Signs (Last 4 hours): Vital Signs Pulse Resp BP Pulse Ox 01/07/18 16:59 98 H 20 120/77 100 Intake and Output (Last 8hrs): Intake & Output 01/07/18 01/07/18 01/07/18 06:59 14:59 22:59 Intake Total 1050 850 50 Output Total 300 100 Balance 750 750 50 Weight 103 lb 3.2 oz Intake: Intake, IV Amount 800 550 50 Left Hand 50 Right PICC 1 400 300 50 Right PICC 2 400 200 Oral 250 300 Output: Urine 300 100 Urine, Voided 300 100 Stool 0 Other: # Bowel Movements 1 1 - Medications Active Medications: Active Medications Generic Name Dose Route Start Last Admin Trade Name Freq PRN Reason Stop Dose Admin Albumin Human 12.5 gm 01/07/18 15:00 01/07/18 14:53 Albumin Human 25% (12.5 Gm/50 Ml) IV 01/09/18 15:01 12.5 gm Q8H SABINA Administration Dextrose 0 ml 01/04/18 19:08 Dextrose 50% Inj IV STAT PRN Hypoglycemia Protocol Protocol Dextrose 0 gm 01/04/18 19:08 Glutose 15 PO ONCE PRN Hypoglycemia Protocol Protocol Folic Acid 1 mg 01/07/18 10:30 01/07/18 10:43 Folic Acid PO 1 mg DAILY SABINA Administration Glucagon 0 mg 01/04/18 18:57 Glucagen Diagnostic Kit IM STAT PRN Hypoglycemia Protocol Protocol Dextrose 1,000 mls @ 0 mls/hr 01/04/18 19:06 Dextrose 5% In Water 1000 Ml IV .Q0M PRN Hypoglycemia Protocol Protocol Per Protocol Insulin Human Regular 0 unit 01/07/18 16:30 01/07/18 17:01 Novolin R SC Not Given ACHS SABINA Protocol Midodrine 2.5 mg 01/06/18 10:00 01/07/18 18:11 Proamatine PO 2.5 mg TID SABINA Administration Multivitamins/Vitamin C 5 ml 01/07/18 10:30 01/07/18 10:43 Multi-Delyn Liquid PO 5 ml DAILY SABINA Administration Pantoprazole Sodium 40 mg 01/07/18 18:00 01/07/18 18:12 Protonix Ec Tab PO 40 mg BID SABINA Administration Phytonadione 5 mg 01/08/18 10:00 Vitamin K Tab PO 01/10/18 12:31 DAILY SABINA Spironolactone 50 mg 01/07/18 10:45 01/07/18 10:44 Aldactone PO 50 mg DAILY SABINA Administration Thiamine HCl 100 mg 01/07/18 10:30 01/07/18 10:43 Vitamin B1 Tab PO 100 mg DAILY SABINA Administration - Patient Studies Lab Studies: Microbiology Studies 01/04/18 18:10 Blood Culture - Preliminary Blood NO GROWTH AFTER 3 DAYS 01/04/18 18:10 Blood Culture - Preliminary Blood NO GROWTH AFTER 3 DAYS 01/06/18 19:38 Fungal Culture - Preliminary Other: Please Indicate 01/05/18 Unknown Gram Stain - Final Abdominal Fluid Body Fluid Culture - Preliminary NO GROWTH AFTER 24 HOURS Lab Studies 01/07/18 01/07/18 01/07/18 Range/Units 16:50 11:26 07:37 WBC (4.8-10.8) K/uL RBC (4.40-5.90) Mil/uL Hgb (12.0-18.0) g/dL Hct (35.0-51.0) % MCV (80.0-94.0) fL MCH (27.0-31.0) pg MCHC (33.0-37.0) g/dL RDW (11.5-14.5) % Plt Count (130-400) K/uL MPV (7.2-11.7) fL Neut % (Auto) (50.0-75.0) % Lymph % (Auto) (20.0-40.0) % Overton % (Auto) (0.0-10.0) % Eos % (Auto) (0.0-4.0) % Baso % (Auto) (0.0-2.0) % Neut # (Auto) (1.8-7.0) K/uL Lymph # (Auto) (1.0-4.3) K/uL Overton # (Auto) (0.0-0.8) K/uL Eos # (Auto) (0.0-0.7) K/uL Baso # (Auto) (0.0-0.2) K/uL PT (9.7-12.2) SECONDS INR Sodium (132-148) mmol/L Potassium (3.6-5.2) mmol/L Chloride (98-107) mmol/L Carbon Dioxide (22-30) mmol/L Anion Gap (10-20) BUN (9-20) mg/dL Creatinine (0.8-1.5) mg/dL Est GFR ( Amer) Est GFR (Non-Af Amer) POC Glucose (mg/dL) 189 H 228 H 181 H (65-110) mg/dL Random Glucose (75-110) mg/dL Calcium (8.6-10.4) mg/dl Phosphorus (2.5-4.5) mg/dL Magnesium (1.6-2.3) mg/dL Total Bilirubin (0.2-1.3) mg/dL AST (17-59) U/L ALT (21-72) U/L Alkaline Phosphatase (38-126) U/L Total Protein (6.3-8.3) g/dL Albumin (3.5-5.0) g/dL Globulin (2.2-3.9) gm/dL Albumin/Globulin Ratio (1.0-2.1) Fluid Appearance (CLEAR) Fluid WBC (0.0-300.0) /mm3 Fluid RBC (0.0-0.0) /mm3 Fluid Tot Cell Count (0-0) Fluid Neutrophils (0-0) % Fluid Lymphocytes (0-0) % Fld Monocyte/Macrophag (0-0) % Fluid Comment 01/07/18 01/07/18 01/07/18 Range/Units 06:30 06:30 06:30 WBC 7.4 (4.8-10.8) K/uL RBC 2.56 L (4.40-5.90) Mil/uL Hgb 7.3 L (12.0-18.0) g/dL Hct 20.7 L (35.0-51.0) % MCV 80.8 (80.0-94.0) fL MCH 28.6 (27.0-31.0) pg MCHC 35.4 (33.0-37.0) g/dL RDW 18.1 H (11.5-14.5) % Plt Count 62 L D (130-400) K/uL MPV 8.7 (7.2-11.7) fL Neut % (Auto) 82.2 H (50.0-75.0) % Lymph % (Auto) 11.1 L (20.0-40.0) % Overton % (Auto) 6.2 (0.0-10.0) % Eos % (Auto) 0.3 (0.0-4.0) % Baso % (Auto) 0.2 (0.0-2.0) % Neut # (Auto) 6.1 (1.8-7.0) K/uL Lymph # (Auto) 0.8 L (1.0-4.3) K/uL Overton # (Auto) 0.5 (0.0-0.8) K/uL Eos # (Auto) 0.0 (0.0-0.7) K/uL Baso # (Auto) 0.0 (0.0-0.2) K/uL PT 26.8 H D (9.7-12.2) SECONDS INR 2.4 D Sodium 136 (132-148) mmol/L Potassium 3.6 (3.6-5.2) mmol/L Chloride 100 (98-107) mmol/L Carbon Dioxide 20 L (22-30) mmol/L Anion Gap 20 (10-20) BUN 28 H (9-20) mg/dL Creatinine 1.8 H (0.8-1.5) mg/dL Est GFR ( Amer) 48 Est GFR (Non-Af Amer) 40 POC Glucose (mg/dL) (65-110) mg/dL Random Glucose 153 H (75-110) mg/dL Calcium 6.9 L (8.6-10.4) mg/dl Phosphorus 3.7 (2.5-4.5) mg/dL Magnesium 1.6 (1.6-2.3) mg/dL Total Bilirubin 5.8 H (0.2-1.3) mg/dL AST 61 H D (17-59) U/L ALT 30 (21-72) U/L Alkaline Phosphatase 61 (38-126) U/L Total Protein 5.1 L (6.3-8.3) g/dL Albumin 2.6 L (3.5-5.0) g/dL Globulin 2.5 (2.2-3.9) gm/dL Albumin/Globulin Ratio 1.0 (1.0-2.1) Fluid Appearance (CLEAR) Fluid WBC (0.0-300.0) /mm3 Fluid RBC (0.0-0.0) /mm3 Fluid Tot Cell Count (0-0) Fluid Neutrophils (0-0) % Fluid Lymphocytes (0-0) % Fld Monocyte/Macrophag (0-0) % Fluid Comment 01/07/18 01/06/18 01/06/18 Range/Units 05:25 23:33 19:38 WBC (4.8-10.8) K/uL RBC (4.40-5.90) Mil/uL Hgb (12.0-18.0) g/dL Hct (35.0-51.0) % MCV (80.0-94.0) fL MCH (27.0-31.0) pg MCHC (33.0-37.0) g/dL RDW (11.5-14.5) % Plt Count (130-400) K/uL MPV (7.2-11.7) fL Neut % (Auto) (50.0-75.0) % Lymph % (Auto) (20.0-40.0) % Overton % (Auto) (0.0-10.0) % Eos % (Auto) (0.0-4.0) % Baso % (Auto) (0.0-2.0) % Neut # (Auto) (1.8-7.0) K/uL Lymph # (Auto) (1.0-4.3) K/uL Overton # (Auto) (0.0-0.8) K/uL Eos # (Auto) (0.0-0.7) K/uL Baso # (Auto) (0.0-0.2) K/uL PT (9.7-12.2) SECONDS INR Sodium (132-148) mmol/L Potassium (3.6-5.2) mmol/L Chloride (98-107) mmol/L Carbon Dioxide (22-30) mmol/L Anion Gap (10-20) BUN (9-20) mg/dL Creatinine (0.8-1.5) mg/dL Est GFR ( Amer) Est GFR (Non-Af Amer) POC Glucose (mg/dL) 168 H 139 H (65-110) mg/dL Random Glucose (75-110) mg/dL Calcium (8.6-10.4) mg/dl Phosphorus (2.5-4.5) mg/dL Magnesium (1.6-2.3) mg/dL Total Bilirubin (0.2-1.3) mg/dL AST (17-59) U/L ALT (21-72) U/L Alkaline Phosphatase (38-126) U/L Total Protein (6.3-8.3) g/dL Albumin (3.5-5.0) g/dL Globulin (2.2-3.9) gm/dL Albumin/Globulin Ratio (1.0-2.1) Fluid Appearance Sl cloudy (CLEAR) Fluid WBC 116.0 (0.0-300.0) /mm3 Fluid RBC 3076.0 H (0.0-0.0) /mm3 Fluid Tot Cell Count 100 H (0-0) Fluid Neutrophils 39.0 H (0-0) % Fluid Lymphocytes 57.0 H (0-0) % Fld Monocyte/Macrophag 3 H (0-0) % Fluid Comment Laboratory Results - last 24 hr 01/06/18 01/06/18 01/07/18 19:38 23:33 05:25 WBC RBC Hgb Hct MCV MCH MCHC RDW Plt Count MPV Neut % (Auto) Lymph % (Auto) Overton % (Auto) Eos % (Auto) Baso % (Auto) Neut # (Auto) Lymph # (Auto) Overton # (Auto) Eos # (Auto) Baso # (Auto) PT INR Sodium Potassium Chloride Carbon Dioxide Anion Gap BUN Creatinine Est GFR ( Amer) Est GFR (Non-Af Amer) POC Glucose (mg/dL) 139 H 168 H Random Glucose Calcium Phosphorus Magnesium Total Bilirubin AST ALT Alkaline Phosphatase Total Protein Albumin Globulin Albumin/Globulin Ratio Fluid Appearance Sl cloudy Fluid WBC 116.0 Fluid RBC 3076.0 H Fluid Tot Cell Count 100 H Fluid Neutrophils 39.0 H Fluid Lymphocytes 57.0 H Fld Monocyte/Macrophag 3 H Fluid Comment 01/07/18 01/07/18 01/07/18 06:30 06:30 06:30 WBC 7.4 RBC 2.56 L Hgb 7.3 L Hct 20.7 L MCV 80.8 MCH 28.6 MCHC 35.4 RDW 18.1 H Plt Count 62 L D MPV 8.7 Neut % (Auto) 82.2 H Lymph % (Auto) 11.1 L Overton % (Auto) 6.2 Eos % (Auto) 0.3 Baso % (Auto) 0.2 Neut # (Auto) 6.1 Lymph # (Auto) 0.8 L Overton # (Auto) 0.5 Eos # (Auto) 0.0 Baso # (Auto) 0.0 PT 26.8 H D INR 2.4 D Sodium 136 Potassium 3.6 Chloride 100 Carbon Dioxide 20 L Anion Gap 20 BUN 28 H Creatinine 1.8 H Est GFR ( Amer) 48 Est GFR (Non-Af Amer) 40 POC Glucose (mg/dL) Random Glucose 153 H Calcium 6.9 L Phosphorus 3.7 Magnesium 1.6 Total Bilirubin 5.8 H AST 61 H D ALT 30 Alkaline Phosphatase 61 Total Protein 5.1 L Albumin 2.6 L Globulin 2.5 Albumin/Globulin Ratio 1.0 Fluid Appearance Fluid WBC Fluid RBC Fluid Tot Cell Count Fluid Neutrophils Fluid Lymphocytes Fld Monocyte/Macrophag Fluid Comment 01/07/18 01/07/18 01/07/18 07:37 11:26 16:50 WBC RBC Hgb Hct MCV MCH MCHC RDW Plt Count MPV Neut % (Auto) Lymph % (Auto) Overton % (Auto) Eos % (Auto) Baso % (Auto) Neut # (Auto) Lymph # (Auto) Overton # (Auto) Eos # (Auto) Baso # (Auto) PT INR Sodium Potassium Chloride Carbon Dioxide Anion Gap BUN Creatinine Est GFR ( Amer) Est GFR (Non-Af Amer) POC Glucose (mg/dL) 181 H 228 H 189 H Random Glucose Calcium Phosphorus Magnesium Total Bilirubin AST ALT Alkaline Phosphatase Total Protein Albumin Globulin Albumin/Globulin Ratio Fluid Appearance Fluid WBC Fluid RBC Fluid Tot Cell Count Fluid Neutrophils Fluid Lymphocytes Fld Monocyte/Macrophag Fluid Comment Critical Care Progress Note - Nutrition Nutrition: Nutrition Category Date Time Status Altered GI/Hepatic Diet [DIET] Diets 01/07/18 Lunch Active Attending/Attestation - Attestation I have personally seen and examined this patient.: Yes I have fully participated in the care of the patient.: Yes I have reviewed all pertinent clinical information: Yes Notes (Text): 01/05/18 19:49 Today: December The Patient was seen and examined at the bedside, Medical records reviewed, and management issues were discussed and formulated with the house staff. I have reviewed all the relevant clinical, laboratory, hemodynamic, radiographic data and medications Events reviewed Pain issues, skin care, head of the bed elevation, glycemic control were addressed. Agree with above resident's assessment and treatment plans of care as transcribed in Dr. Diane note.
[2018-01-05] MEDS: Albumin Human 25% (12.5 gm/50 ml) IV SCH (20:13)
[2018-01-06] MEDS: (Novolin R) Insulin Human Regular 100 units/ml vial SC SCH ×5 (00:40→23:56)
[2018-01-06] MEDS: Pantoprazole 80 MG in Sodium Chloride 0.9% 100 ML IV SCH ×2 (00:41→07:04)
[2018-01-06 01:10] LABS: CALCIUM 6.4 mg/dl (8.6-10.4)
[2018-01-06] MEDS: Albumin Human 25% (12.5 gm/50 ml) IV SCH ×3 (01:29→14:48)
[2018-01-06] MEDS: Potassium Chloride 20 MEQ in Dextrose 5%/0.9% NS 1,000 ML IV SCH ×2 (01:30→06:32)
[2018-01-06] MEDS ORDERED: Multivitamin (MVI) 10 ML, Thiamine 100 MG, Folic Acid 1 MG in Dextrose 5% In Water 1,00... IV SCH (06:00)
[2018-01-06 07:01] LABS: BASO % 0.2 % (0.0-2.0); EOS % 0.1 % (0.0-4.0); HEMOGLOBIN 8.1 g/dL (12.0-18.0); LYMPH # 1.1 K/uL (1.0-4.3); LYMPH % 12.6 % (20.0-40.0); MEAN CORPUSCULAR HEMOGLOBIN 28.9 pg (27.0-31.0); MEAN CORPUSCULAR HGB CONC 36.1 g/dL (33.0-37.0); MEAN PLATELET VOLUME 8.8 fL (7.2-11.7); MONO # 0.5 K/uL (0.0-0.8); MONO % 5.4 % (0.0-10.0); NEUT # 7.2 K/uL (1.8-7.0); NEUT % 81.7 % (50.0-75.0); NRBC % 0.1 % (0.0-2.0); RBC 2.79 Mil/uL (4.40-5.90); RED CELL DISTRIBUTION WIDTH 17.5 % (11.5-14.5); WHITE BLOOD COUNT 8.8 K/uL (4.8-10.8)
[2018-01-06 07:11] LABS: ALB/GLOB RATIO 0.8 (1.0-2.1); CALCIUM 6.8 mg/dl (8.6-10.4)
[2018-01-06 07:17] LABS: INR 1.9; PROTHROMBIN TIME 20.4 SECONDS (9.7-12.2)
--- NOTE | 2018-01-06 07:22 | CON ---
DATE: 01/05/2018 LOCATION: [facility]. NEPHROLOGY CONSULTATION HISTORY OF PRESENT ILLNESS: A 52-year-old male with past medical history of alcoholic liver cirrhosis with recurrent ascites, hepatic encephalopathy, chronic pancreatitis, chronic anemia, admitted with altered mental status and abdominal pain, found to have severe anemia with hemoglobin 2.9 and hypokalemia with potassium 1.4. Nephrology being consulted for acute renal failure. History is taken partially from medical record as the patient is still very lethargic and very slow to give history. Per medical record, the patient's friend communicated with him yesterday afternoon with the patient telling friend that his abdomen is hurting and is firm. The patient was seen in the following morning by his friend who found that the patient appeared confused, unable to stand, and looking ill. The patient reports that he has not been ambulating for approximately 1 week, has decreased appetite during this period. The patient reports no nausea or vomiting. Did tell other medical staff that he was having dark stools lately. PAST MEDICAL HISTORY: As above. SOCIAL HISTORY: The patient is an alcoholic. FAMILY HISTORY: Unknown. REVIEW OF SYSTEMS: Difficult to obtain. CONSTITUTIONAL: Anorexia. HEENT: Denies any difficulty swallowing. RESPIRATORY: Denies any difficulty breathing. CARDIOVASCULAR: Denies chest pain, palpitation or swelling in legs. GASTROINTESTINAL: As per HPI. GENITOURINARY: Reports chronically having decreased urination, cannot say for how long. MUSCULOSKELETAL: Denies any aches or pains. NEUROLOGIC: Altered mental status on presentation. PHYSICAL EXAMINATION: VITAL SIGNS: This afternoon; blood pressure 107/69, heart rate 92, respirations 16, temperature 97.9, and O2 sat 98% on room air. GENERAL: Lethargic, able to give simple verbal responses. HEENT: Icterus present. No cervical lymphadenopathy. RESPIRATORY: Lungs are clear to auscultation bilaterally. No rales. No rhonchi. No wheezes. No respiratory distress. CARDIOVASCULAR: Heart sounds S1 and S2 normal. No murmurs. No gallops. No rubs. GASTROINTESTINAL: Abdomen distended, tender to light palpation. GENITOURINARY: Unable to access bladder distention due to overall abdominal distention. EXTREMITIES: Mild proximal leg edema present. SKIN: Warm. No cyanosis. MUSCULOSKELETAL: Cachectic. NEUROLOGIC: Tremor of outstretched hands. Asterixis present. PSYCHIATRIC: Not agitated. LABORATORY DATA: CBC this afternoon; WBC 7.2, hemoglobin 8.3, hematocrit 23, platelets 96. Chemistry panel; sodium 130, potassium 3, chloride 90, bicarb 25, BUN 43, creatinine 2.4 improved from 2.9 on presentation. Glucose 184, calcium 7.5, phosphorous 2.3, magnesium 1.7. T-bilirubin 10.2, AST 109, ALT 29. Urine studies; urine sodium 10. DIAGNOSTIC DATA: Abdominal ultrasound directly observed showing large amount of ascites. CT abdomen and pelvis with reported mild left hydronephrosis. ASSESSMENT AND PLAN: 1. Acute renal failure. The patient is presenting with profound hypotension in the setting of severe anemia that is likely multifactorial; showing some improvement in renal function, although remains oliguric. Urine sodium is low, which is consistent with prerenal state. Need to give adequate intravascular volume replenishment, and reassess renal function. Continue D5 normal saline at 100 mL/hour. Starting IV albumin 12.5 gm every 6 hours x4 doses. We will repeat urine lytes after adequate volume replenishment tomorrow. Avoid nephrotoxic insults including IV contrast, especially since the patient is opting towards less aggressive care based on previous DNR/DNI. Needs to avoid precipitating need for dialysis . 2. Hypokalemia in the setting of likely gastrointestinal loses. The patient also with secondary hyperaldosteronism that is also likely driving hypokalemia. Continue volume replenishment. Continue to supplement potassium via IV and p.o. route aggressively. Recommend to switch dextrose containing food to non-dextrose containing fluid especially since the patient is hyperglycemic, and this will contribute to hypokalemia. 3. Hyponatremia likely secondary to intravascular volume depletion. Serum sodium already improving. Continue current measures. Avoid hypotonic fluids. 4. Hypophosphatemia in the setting of severe nutritional deficiency from alcohol abuse. Agree with IV potassium and phosphate. Recommend to check CK level, although urine not indicative of rhabdo. 5. Abdominal ascites. The patient will likely need large volume paracentesis. We will need to replenish intravascular volume with 6 to 8 gm of IV albumin per liter removed if total volume of paracentesis fluid is greater than 5 liters. Thank you for this consult. We will be following up closely. Guevara Potter MD
[2018-01-06] MEDS ORDERED: Potassium & Sodium Phosphate PO SCH (07:30)
[2018-01-06] MEDS: LIPASE/PROTEASE/AMYLASE 21,000 U ECC PO SCH ×3 (08:06→17:00)
[2018-01-06] MEDS: SODIUM PHOSPHATE IV SCH ×3 (08:54→21:05)
[2018-01-06] MEDS: SODIUM CHLORIDE IV SCH ×3 (08:54→21:05)
--- NOTE | 2018-01-06 09:17 | CP.PCM.PN ---
Subjective - Date & Time of Evaluation Date of Evaluation: 01/06/18 Time of Evaluation: 09:00 - Subjective Subjective: Medical Attending Note: Patient seen and examined. Patient seen this morning. Patient reporting abdominal distension and associated abdominal pain. Patient denies other acute complaints. Per nursing, patient has mucoid type bowel movement, non-bloody and no observed throwing up of blood. Patient is scheduled for endoscopy this morning at 930AM. Per nurse, there is plan by ICU to perform bedside paracentesis later today. Objective - Vital Signs/Intake and Output Vital Signs (last 24 hours): Temp Pulse Resp BP Pulse Ox 98 F 100 H 26 H 124/88 96 01/06/18 04:00 01/06/18 08:12 01/06/18 08:12 01/06/18 08:12 01/06/18 08:12 Intake and Output: 01/06/18 01/06/18 06:59 18:59 Intake Total 2635.0 390 Output Total 600 100 Balance 2035.0 290 - Medications Medications: Current Medications Albumin Human (Albumin Human 25% (12.5 Gm/50 Ml)) 12.5 gm IV Q6H SABINA Stop: 01/06/18 14:01 Last Admin: 01/06/18 07:25 Dose: 12.5 gm Dextrose (Dextrose 50% Inj) 0 ml IV STAT PRN; Protocol PRN Reason: Hypoglycemia Protocol Dextrose (Glutose 15) 0 gm PO ONCE PRN; Protocol PRN Reason: Hypoglycemia Protocol Glucagon (Glucagen Diagnostic Kit) 0 mg IM STAT PRN; Protocol PRN Reason: Hypoglycemia Protocol Dextrose (Dextrose 5% In Water 1000 Ml) 1,000 mls @ 0 mls/hr IV .Q0M PRN; Protocol; Per Protocol PRN Reason: Hypoglycemia Protocol Ceftriaxone Sodium (Rocephin Iv 1 Gm Duplex) 50 mls @ 100 mls/hr IVPB DAILY SABINA PRN Reason: Protocol Last Admin: 01/05/18 10:52 Dose: 100 mls/hr Pantoprazole Sodium 80 mg/ (Sodium Chloride) 100 mls @ 10 mls/hr IV .Q10H SABINA PRN Reason: 8 MG/HR Last Admin: 01/06/18 07:04 Dose: Not Given Octreotide Acetate 1,250 mcg/ (Sodium Chloride) 252.5 mls @ 10.1 mls/hr IV .Q24H SABINA; 50 MCG/HR PRN Reason: Protocol Last Admin: 01/05/18 13:25 Dose: 10.1 mls/hr Multivitamins/Vitamin C 10 ml/Folic Acid 1 mg/ Thiamine HCl 100 mg/ Sodium Chloride 1,011.2 mls @ 50 mls/hr IV Q24H SABINA Stop: 01/07/18 14:01 Sodium Phosphate 15 mmole/ (Sodium Chloride) 505 mls @ 50 mls/hr IV .Q10H6M [facility] Last Admin: 01/06/18 08:54 Dose: 50 mls/hr Calcium Gluconate 1,000 mg/ (Sodium Chloride) 260 mls @ 90 mls/hr IVPB ONCE ONE PRN Reason: Per Protocol Stop: 01/06/18 12:08 Insulin Human Regular (Novolin R) 0 unit SC Q6H SABINA PRN Reason: Protocol Last Admin: 01/06/18 05:32 Dose: Not Given Midodrine (Proamatine) 2.5 mg PO TID [facility] Potassium Phos/Sodium Phos (Neutra-Phos) 1 pkt PO Q4H [facility] Stop: 01/06/18 21:01 Propranolol HCl (Inderal) 5 mg PO TID [facility] - Labs Labs: 01/06/18 07:34 01/06/18 06:40 PT 20.4 SECONDS (9.7-12.2) H 01/06/18 06:50 INR 1.9 01/06/18 06:50 APTT 32 SECONDS (21-34) 01/04/18 12:29 - Constitutional Appears: Non-toxic, No Acute Distress, Cachectic, Other (jaunduce) - Head Exam Head Exam: NORMAL INSPECTION - Eye Exam Eye Exam: EOMI, PERRL, Scleral icterus. absent: Nystagmus - ENT Exam ENT Exam: Mucous Membranes Dry - Respiratory Exam Respiratory Exam: Decreased Breath Sounds, Rales, NORMAL BREATHING PATTERN - Cardiovascular Exam Cardiovascular Exam: REGULAR RHYTHM, +S1, +S2 - GI/Abdominal Exam GI & Abdominal Exam: Distended, Guarding, Soft, Normal Bowel Sounds, Rebound. absent: Rigid, Tenderness, Hyperactive Bowel Sounds, Pulsatile Mass Additional comments: patient is more distended compared to yesterday - Neurological Exam Neurological Exam: Alert, Awake, Oriented x3 Neuro motor strength exam: Left Upper Extremity: 5, Right Upper Extremity: 5, Left Lower Extremity: 5, Right Lower Extremity: 5 - Psychiatric Exam Psychiatric exam: Normal Affect, Normal Mood - Skin Skin Exam: Dry, Intact, Warm Assessment and Plan (1) Hepatic encephalopathy Status: Acute (2) Hypomagnesemia Status: Acute (3) Liver cirrhosis Status: Acute (4) Alcohol abuse Status: Acute (5) Abdominal pain Status: Acute (6) Anemia Status: Acute (7) Ascites Status: Acute (8) Hypokalemia Status: Acute (9) DNR (do not resuscitate) Status: Acute (10) DNI (do not intubate) Status: Acute (11) Prophylactic measure Status: Acute Attending/Attestation - Attestation I have personally seen and examined this patient.: Yes I have fully participated in the care of the patient.: Yes I have reviewed all pertinent clinical information, including history, physical exam and plan: Yes Notes (Text): (1) Hepatic encephalopathy Alcoholic Liver Cirrhosis Ascites Lactic Acidosis Possible GI bleed Pancreatic Insufficiency (noted in last admission) Status: Acute * GI (Dr. Constantino) on consult-->help appreciated * 01/06: patient is pending endoscopy this morning at 930AM. Patient is planned for paracentesis for ascites by ICU. * Fluid orders are in. * Patient is on 3rd generation cephalosporin to cover for PE. * 01/05: patient seen this morning with assistance with Tracee nurse this morning. Patient is oriented compared to how Earlene seen him this morning. * Patient continues to drink likely alcoholic liver cirrhosis. Patient had an extensive workup in Jul-Aug 2017 which he was last in the hospital. * Patient has completed 3 PRBC and 2 FFP overnight. Patient will be getting 1 more unit of PRBC this morning. There will be post-transfusion CBC today. I have asked the nurse to draw INR and ammonia level as well. Patient admits to us today he has been having dark colored stools and coughing up blood. * Prior imaging: * CT abd/pelvis with IV contrast 07/17: Significant bowel wall thickening involving the colon, appearance most consistent with acute colitis, cannot exclude underlying neoplasm. Small to moderate ascites. Fatty infiltration of the liver. Heterogeneous appearance to hepatic parenchyma. Some of appearance may be due to transient hepatic attenuation differences, concern for underlying lesion. * Endoscopy (07/28): small hiatal hernia, patchy mild inflammation in gastric antrum biopsies, scalloped mucosa found in duodenum, suspicious for celiac disease- biopsied; Biopsy: chemical gastritis, otherwise benign * Colonoscopy (07/28): internal hemorrhoids, mucosal nodule in the sigmoid colon , in transverse colon and in the ascending colon- biopsied; Biopsy: ascending colon edema, transverse colon and @20cm with edema and vascular ectasia * Lactic acid: 9.2--> 8.2-->5.3-->2.0-->1.8 * Elevated anion gap has normalized Imaging: * Abdominal US (01/04/18): large volume ascites * CT chest/abdomen/pelvis w/o contrast (01/05/18): increased number of hepatic lesions lung poorly characterized in the absence of IV contrast. extensive abdominal ascites and small pleural effusions. Nonspecific hyperdense area layering dependently within the ascites on the left. Nonspecific thickening of the colon which may be reactive in the setting of ascites or may represent colitis. Mild left hydoureteronephrosis without evidence of obstrutive calculus Medication: * Rocephin 1 gram IVPB daily (active since 01/05/18) * Somatostatin dip * Protonix drip * Propranolol 5mg PO TID * on Creon (2) Hypomagnesemia Status: Acute * 01/05: repleted and normalized (3) Liver cirrhosis Status: Chronic * Abdominal US (01/04/18): pending (4) Alcohol abuse Status: Acute * 01/05: elevated on admission; drinking alcohol daily; admits to it (5) Abdominal pain Status: Acute * CT chest/abdomen/pelvis w/o contrast (01/05/18): increased number of hepatic lesions lung poorly characterized in the absence of IV contrast. extensive abdominal ascites and small pleural effusions. Nonspecific hyperdense area layering dependently within the ascites on the left. Nonspecific thickening of the colon which may be reactive in the setting of ascites or may represent colitis. Mild left hydoureteronephrosis without evidence of obstrutive calculus * likely secondary to abdominal distension secondary to ascites * Patient is on Rocephin 1 gram IV q daily (6) Anemia Status: Acute * 01/06: Patient's hemoglobin improved to 8.1 * 01/05: patient admits to today he has been having dark stools and coughing up small blood. * Aug 2017: hgb: 7---> 2.3/2.6--->6.5 (3 units of PRBC and FFP) (7) Ascites Status: Acute * likely secondary to alcoholic liver disease * Abdominal US (01/04/18): large volume ascites * CT chest/abdomen/pelvis w/o contrast (01/05/18): increased number of hepatic lesions lung poorly characterized in the absence of IV contrast. extensive abdominal ascites and small pleural effusions. Nonspecific hyperdense area layering dependently within the ascites on the left. Nonspecific thickening of the colon which may be reactive in the setting of ascites or may represent colitis. Mild left hydoureteronephrosis without evidence of obstrutive calculus (8) Hypokalemia Status: Acute * repleted and normalized (9) DNR (do not resuscitate) Status: Acute * Patient has prior POLST from last hospitalization (10) DNI (do not intubate) Status: Acute * Patient has prior POLST from last hospitalization (11) Acute Renal Insuffiency Hepatorenal disease suspected Status: Acute * Nephrology (Dr. Potter) on the case-->help appreciated * monitor BUN/Cr * patient is on Albumin 12.5gm IV q6 X4 doses * Note patient is getting paracentesis today-->will likely need Albumin post. 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 (13) Prophylactic measure Status: Acute * Chemical contraindication secondary to GI bleed/anemia/elevated INR * POLST: DNR/DNI last hospitalization * Luis Peng [phone] Patient's Friend-->who brought him in; friendship >20 years and involved in case also noted in last admission. * PICC line: right upper extremity
[2018-01-06] MEDS: Propranolol 5 mg Tab PO SCH ×3 (09:23→18:00)
[2018-01-06] MEDS: cefTRIAXone IV 1 gm in Dextros 50 ML IVPB SCH (09:30)
--- NOTE | 2018-01-06 09:45 | CP.CCUPN ---
<Darrell Diane - Last Filed: 01/06/18 09:42> CCU Subjective - Physician Review Subjective (Free Text): Patient seen and examined at bedside. Denied any bloody, dark, tarry bowel movements. Patient is for EGD and paracentesis today. CCU Objective - Vital Signs / Intake & Output Vital Signs (Last 4 hours): Vital Signs Pulse Resp BP Pulse Ox 01/06/18 08:12 100 H 26 H 124/88 96 01/06/18 07:12 100 H 25 H 113/81 97 01/06/18 07:00 103 H 32 H 99 01/06/18 06:12 101 H 25 H 119/85 01/06/18 06:00 101 H 24 93 L Intake and Output (Last 8hrs): Intake & Output 01/05/18 01/06/18 01/06/18 22:59 06:59 14:59 Intake Total 1605.0 1695.0 390 Output Total 200 400 100 Balance 1405.0 1295.0 290 Intake: Intake, IV Amount 1555.0 1695.0 390 Left Antecubital 310 400 100 Left Forearm 100 50 Left Hand 255.0 285.0 Lt AC y site 60 50 Right PICC 1 60 80 20 Right PICC 1 Y port 70 80 20 Right PICC 2 700 800 200 Oral 50 Output: Urine 200 400 100 Urine, Voided 200 400 100 Other: # Bowel Movements 0 1 - Physical Exam Head: Positive for: Atraumatic, Normocephalic Pupils: Positive for: PERRL Extroacular Muscles: Positive for: EOMI Conjunctiva: Positive for: Icteric Mouth: Positive for: Dry Respiratory/Chest: Positive for: Decreased Breath Sounds Cardiovascular: Positive for: Tachycardic Abdomen: Positive for: Tenderness, Distention, Normal Bowel Sounds, Other ( fluid wave shift ). Negative for: Mass/Organomegaly Upper Extremity: Positive for: Normal Inspection, NORMAL PULSES, Neurovascularly Intact, Capillary Refill < 2s. Negative for: Edema Lower Extremity: Positive for: Normal Inspection, NORMAL PULSES, Neurovascularly Intact, Capillary Refill < 2 s Neurological: Positive for: GCS=15, CN II-XII Intact Skin: Positive for: Warm, Dry Psychiatric: Positive for: Alert - Medications Active Medications: Active Medications Generic Name Dose Route Start Last Admin Trade Name Freq PRN Reason Stop Dose Admin Albumin Human 12.5 gm 01/05/18 20:00 01/06/18 07:25 Albumin Human 25% (12.5 Gm/50 Ml) IV 01/06/18 14:01 12.5 gm Q6H SABINA Administration Dextrose 0 ml 01/04/18 19:08 Dextrose 50% Inj IV STAT PRN Hypoglycemia Protocol Protocol Dextrose 0 gm 01/04/18 19:08 Glutose 15 PO ONCE PRN Hypoglycemia Protocol Protocol Glucagon 0 mg 01/04/18 18:57 Glucagen Diagnostic Kit IM STAT PRN Hypoglycemia Protocol Protocol Dextrose 1,000 mls @ 0 mls/hr 01/04/18 19:06 Dextrose 5% In Water 1000 Ml IV .Q0M PRN Hypoglycemia Protocol Protocol Per Protocol Ceftriaxone Sodium 50 mls @ 100 mls/hr 01/05/18 10:00 01/06/18 09:30 Rocephin Iv 1 Gm Duplex IVPB 100 mls/hr DAILY SABINA Administration Protocol Pantoprazole Sodium 80 mg/ 100 mls @ 10 mls/hr 01/05/18 11:00 01/06/18 07:04 Sodium Chloride IV Not Given .Q10H SABINA 8 MG/HR Octreotide Acetate 1,250 mcg/ 252.5 mls @ 10.1 mls/hr 01/05/18 13:15 13:25 Sodium Chloride IV 10.1 mls/hr .Q24H SABINA Administration Protocol 50 MCG/HR Multivitamins/Vitamin C 10 ml/ 1,011.2 mls @ 50 mls/hr 01/06/18 14:00 Folic Acid 1 mg/ Thiamine HCl IV 01/07/18 14:01 100 mg/ Sodium Chloride Q24H SABINA Sodium Phosphate 15 mmole/ 505 mls @ 50 mls/hr 01/06/18 08:30 01/06/18 08:54 Sodium Chloride IV 50 mls/hr .Q10H6M SABINA Administration Calcium Gluconate 1,000 mg/ 260 mls @ 90 mls/hr 01/06/18 09:15 Sodium Chloride IVPB 01/06/18 12:08 ONCE ONE Per Protocol Insulin Human Regular 0 unit 01/05/18 00:00 01/06/18 05:32 Novolin R SC Not Given Q6H SABINA Protocol Midodrine 2.5 mg 01/06/18 10:00 01/06/18 09:23 Proamatine PO Not Given TID [facility] Potassium Phos/Sodium Phos 1 pkt 01/06/18 13:00 Neutra-Phos PO 01/06/18 21:01 Q4H SABINA Propranolol HCl 5 mg 01/06/18 10:00 01/06/18 09:23 Inderal PO Not Given TID SABINA - Patient Studies Lab Studies: Microbiology Studies 01/04/18 17:17 MRSA Culture (Admit) - Final Naris MRSA NOT DETECTED 01/04/18 18:10 Blood Culture - Preliminary Blood NO GROWTH AFTER 24 HOURS 01/04/18 18:10 Blood Culture - Preliminary Blood NO GROWTH AFTER 24 HOURS Lab Studies 01/06/18 01/06/18 01/06/18 Range/Units 07:34 06:50 06:40 WBC 8.8 (4.8-10.8) K/uL RBC 2.79 L (4.40-5.90) Mil/uL Hgb 8.1 L (12.0-18.0) g/dL Hct 22.3 L (35.0-51.0) % MCV 80.0 (80.0-94.0) fL MCH 28.9 (27.0-31.0) pg MCHC 36.1 (33.0-37.0) g/dL RDW 17.5 H (11.5-14.5) % Plt Count 90 L (130-400) K/uL MPV 8.8 (7.2-11.7) fL Neut % (Auto) 81.7 H (50.0-75.0) % Lymph % (Auto) 12.6 L (20.0-40.0) % Tyler % (Auto) 5.4 (0.0-10.0) % Eos % (Auto) 0.1 (0.0-4.0) % Baso % (Auto) 0.2 (0.0-2.0) % Neut # (Auto) 7.2 H (1.8-7.0) K/uL Lymph # (Auto) 1.1 (1.0-4.3) K/uL Tyler # (Auto) 0.5 (0.0-0.8) K/uL Eos # (Auto) 0.0 (0.0-0.7) K/uL Baso # (Auto) 0.0 (0.0-0.2) K/uL Neutrophils % (Manual) (50-75) % Band Neutrophils % (0-2) % Lymphocytes % (Manual) (20-40) % Monocytes % (Manual) (0-10) % Platelet Estimate (NORMAL) Hypochromasia (manual) Anisocytosis (manual) Target Cells PT 20.4 H (9.7-12.2) SECONDS INR 1.9 pO2 (30-55) mm/Hg VBG pH (7.32-7.43) VBG pCO2 (40-60) mmHg VBG HCO3 mmol/L VBG Total CO2 (22-28) mmol/L VBG O2 Sat (Calc) (40-65) % VBG Base Excess (0.0-2.0) mmol/L VBG Potassium (3.6-5.2) mmol/L Sodium 131 L (132-148) mmol/l Chloride 95 L (98-107) mmol/L Glucose (75-110) mg/dl Lactate (0.7-2.1) mmol/L Crit Value Called To Crit Value Called By Crit Value Read Back Blood Gas Notified Time Potassium 4.0 (3.6-5.2) mmol/L Carbon Dioxide 21 L (22-30) mmol/L Anion Gap 19 (10-20) BUN 39 H (9-20) mg/dL Creatinine 2.1 H (0.8-1.5) mg/dL Est GFR ( Amer) 40 Est GFR (Non-Af Amer) 33 POC Glucose (mg/dL) (65-110) mg/dL Random Glucose 193 H (75-110) mg/dL Calcium 6.8 L (8.6-10.4) mg/dl Phosphorus 1.6 L (2.5-4.5) mg/dL Magnesium 2.1 (1.6-2.3) mg/dL Total Bilirubin 7.3 H (0.2-1.3) mg/dL AST 85 H D (17-59) U/L ALT 26 (21-72) U/L Alkaline Phosphatase 101 (38-126) U/L Ammonia (9-33) umol/L Total Protein 6.8 (6.3-8.3) g/dL Albumin 3.0 L (3.5-5.0) g/dL Globulin 3.7 (2.2-3.9) gm/dL Albumin/Globulin Ratio 0.8 L (1.0-2.1) Venous Blood Potassium (3.6-5.2) mmol/L Urine Osmolality (300-1000) mosm/kg Ur Random Creatinine mg/dL U Random Total Protein (0.0-12.0) mg/dL Ur Random Sodium mmol/L Blood Type Antibody Screen 01/06/18 01/06/18 01/06/18 Range/Units 05:16 00:52 00:13 WBC (4.8-10.8) K/uL RBC (4.40-5.90) Mil/uL Hgb (12.0-18.0) g/dL Hct (35.0-51.0) % MCV (80.0-94.0) fL MCH (27.0-31.0) pg MCHC (33.0-37.0) g/dL RDW (11.5-14.5) % Plt Count (130-400) K/uL MPV (7.2-11.7) fL Neut % (Auto) (50.0-75.0) % Lymph % (Auto) (20.0-40.0) % Tyler % (Auto) (0.0-10.0) % Eos % (Auto) (0.0-4.0) % Baso % (Auto) (0.0-2.0) % Neut # (Auto) (1.8-7.0) K/uL Lymph # (Auto) (1.0-4.3) K/uL Tyler # (Auto) (0.0-0.8) K/uL Eos # (Auto) (0.0-0.7) K/uL Baso # (Auto) (0.0-0.2) K/uL Neutrophils % (Manual) (50-75) % Band Neutrophils % (0-2) % Lymphocytes % (Manual) (20-40) % Monocytes % (Manual) (0-10) % Platelet Estimate (NORMAL) Hypochromasia (manual) Anisocytosis (manual) Target Cells PT (9.7-12.2) SECONDS INR pO2 (30-55) mm/Hg VBG pH (7.32-7.43) VBG pCO2 (40-60) mmHg VBG HCO3 mmol/L VBG Total CO2 (22-28) mmol/L VBG O2 Sat (Calc) (40-65) % VBG Base Excess (0.0-2.0) mmol/L VBG Potassium (3.6-5.2) mmol/L Sodium 125 L (132-148) mmol/l Chloride 89 L (98-107) mmol/L Glucose (75-110) mg/dl Lactate (0.7-2.1) mmol/L Crit Value Called To Crit Value Called By Crit Value Read Back Blood Gas Notified Time Potassium 3.1 L (3.6-5.2) mmol/L Carbon Dioxide 22 (22-30) mmol/L Anion Gap 17 (10-20) BUN 36 H (9-20) mg/dL Creatinine 1.9 H (0.8-1.5) mg/dL Est GFR ( Amer) 45 Est GFR (Non-Af Amer) 37 POC Glucose (mg/dL) 223 H 285 H (65-110) mg/dL Random Glucose 380 H (75-110) mg/dL Calcium 6.4 L (8.6-10.4) mg/dl Phosphorus (2.5-4.5) mg/dL Magnesium (1.6-2.3) mg/dL Total Bilirubin (0.2-1.3) mg/dL AST (17-59) U/L ALT (21-72) U/L Alkaline Phosphatase (38-126) U/L Ammonia (9-33) umol/L Total Protein (6.3-8.3) g/dL Albumin (3.5-5.0) g/dL Globulin (2.2-3.9) gm/dL Albumin/Globulin Ratio (1.0-2.1) Venous Blood Potassium (3.6-5.2) mmol/L Urine Osmolality (300-1000) mosm/kg Ur Random Creatinine mg/dL U Random Total Protein (0.0-12.0) mg/dL Ur Random Sodium mmol/L Blood Type Antibody Screen 01/05/18 01/05/18 01/05/18 Range/Units 17:42 15:53 15:16 WBC (4.8-10.8) K/uL RBC (4.40-5.90) Mil/uL Hgb (12.0-18.0) g/dL Hct (35.0-51.0) % MCV (80.0-94.0) fL MCH (27.0-31.0) pg MCHC (33.0-37.0) g/dL RDW (11.5-14.5) % Plt Count (130-400) K/uL MPV (7.2-11.7) fL Neut % (Auto) (50.0-75.0) % Lymph % (Auto) (20.0-40.0) % Tyler % (Auto) (0.0-10.0) % Eos % (Auto) (0.0-4.0) % Baso % (Auto) (0.0-2.0) % Neut # (Auto) (1.8-7.0) K/uL Lymph # (Auto) (1.0-4.3) K/uL Tyler # (Auto) (0.0-0.8) K/uL Eos # (Auto) (0.0-0.7) K/uL Baso # (Auto) (0.0-0.2) K/uL Neutrophils % (Manual) (50-75) % Band Neutrophils % (0-2) % Lymphocytes % (Manual) (20-40) % Monocytes % (Manual) (0-10) % Platelet Estimate (NORMAL) Hypochromasia (manual) Anisocytosis (manual) Target Cells PT 21.2 H (9.7-12.2) SECONDS INR 1.9 pO2 (30-55) mm/Hg VBG pH (7.32-7.43) VBG pCO2 (40-60) mmHg VBG HCO3 mmol/L VBG Total CO2 (22-28) mmol/L VBG O2 Sat (Calc) (40-65) % VBG Base Excess (0.0-2.0) mmol/L VBG Potassium (3.6-5.2) mmol/L Sodium (132-148) mmol/l Chloride (98-107) mmol/L Glucose (75-110) mg/dl Lactate (0.7-2.1) mmol/L Crit Value Called To Crit Value Called By Crit Value Read Back Blood Gas Notified Time Potassium (3.6-5.2) mmol/L Carbon Dioxide (22-30) mmol/L Anion Gap (10-20) BUN (9-20) mg/dL Creatinine (0.8-1.5) mg/dL Est GFR ( Amer) Est GFR (Non-Af Amer) POC Glucose (mg/dL) 216 H (65-110) mg/dL Random Glucose (75-110) mg/dL Calcium (8.6-10.4) mg/dl Phosphorus (2.5-4.5) mg/dL Magnesium (1.6-2.3) mg/dL Total Bilirubin (0.2-1.3) mg/dL AST (17-59) U/L ALT (21-72) U/L Alkaline Phosphatase (38-126) U/L Ammonia (9-33) umol/L Total Protein (6.3-8.3) g/dL Albumin (3.5-5.0) g/dL Globulin (2.2-3.9) gm/dL Albumin/Globulin Ratio (1.0-2.1) Venous Blood Potassium (3.6-5.2) mmol/L Urine Osmolality 318 (300-1000) mosm/kg Ur Random Creatinine mg/dL U Random Total Protein (0.0-12.0) mg/dL Ur Random Sodium mmol/L Blood Type Antibody Screen 01/05/18 01/05/18 01/05/18 Range/Units 15:16 15:16 15:16 WBC 10.2 (4.8-10.8) K/uL RBC 2.87 L (4.40-5.90) Mil/uL Hgb 8.3 L (12.0-18.0) g/dL Hct 23.0 L (35.0-51.0) % MCV 80.1 (80.0-94.0) fL MCH 28.8 (27.0-31.0) pg MCHC 35.9 (33.0-37.0) g/dL RDW 16.7 H (11.5-14.5) % Plt Count 96 L (130-400) K/uL MPV 8.1 (7.2-11.7) fL Neut % (Auto) 85.3 H (50.0-75.0) % Lymph % (Auto) 10.4 L (20.0-40.0) % Tyler % (Auto) 3.6 (0.0-10.0) % Eos % (Auto) 0.1 (0.0-4.0) % Baso % (Auto) 0.6 (0.0-2.0) % Neut # (Auto) 8.7 H (1.8-7.0) K/uL Lymph # (Auto) 1.1 (1.0-4.3) K/uL Tyler # (Auto) 0.4 (0.0-0.8) K/uL Eos # (Auto) 0.0 (0.0-0.7) K/uL Baso # (Auto) 0.1 (0.0-0.2) K/uL Neutrophils % (Manual) (50-75) % Band Neutrophils % (0-2) % Lymphocytes % (Manual) (20-40) % Monocytes % (Manual) (0-10) % Platelet Estimate (NORMAL) Hypochromasia (manual) Anisocytosis (manual) Target Cells PT (9.7-12.2) SECONDS INR pO2 (30-55) mm/Hg VBG pH (7.32-7.43) VBG pCO2 (40-60) mmHg VBG HCO3 mmol/L VBG Total CO2 (22-28) mmol/L VBG O2 Sat (Calc) (40-65) % VBG Base Excess (0.0-2.0) mmol/L VBG Potassium (3.6-5.2) mmol/L Sodium 130 L (132-148) mmol/l Chloride 90 L (98-107) mmol/L Glucose (75-110) mg/dl Lactate (0.7-2.1) mmol/L Crit Value Called To Crit Value Called By Crit Value Read Back Blood Gas Notified Time Potassium 3.0 L (3.6-5.2) mmol/L Carbon Dioxide 25 (22-30) mmol/L Anion Gap 18 (10-20) BUN 43 H (9-20) mg/dL Creatinine 2.4 H (0.8-1.5) mg/dL Est GFR ( Amer) 35 Est GFR (Non-Af Amer) 29 POC Glucose (mg/dL) (65-110) mg/dL Random Glucose 184 H (75-110) mg/dL Calcium 7.5 L (8.6-10.4) mg/dl Phosphorus 2.3 L (2.5-4.5) mg/dL Magnesium 1.7 (1.6-2.3) mg/dL Total Bilirubin 10.2 H (0.2-1.3) mg/dL AST 109 H (17-59) U/L ALT 29 (21-72) U/L Alkaline Phosphatase 123 (38-126) U/L Ammonia 16 D (9-33) umol/L Total Protein 7.1 (6.3-8.3) g/dL Albumin 3.1 L (3.5-5.0) g/dL Globulin 4.0 H (2.2-3.9) gm/dL Albumin/Globulin Ratio 0.8 L (1.0-2.1) Venous Blood Potassium (3.6-5.2) mmol/L Urine Osmolality (300-1000) mosm/kg Ur Random Creatinine mg/dL U Random Total Protein (0.0-12.0) mg/dL Ur Random Sodium mmol/L Blood Type Antibody Screen 01/05/18 01/05/18 01/05/18 Range/Units 15:16 14:12 14:12 WBC (4.8-10.8) K/uL RBC (4.40-5.90) Mil/uL Hgb (12.0-18.0) g/dL Hct (35.0-51.0) % MCV (80.0-94.0) fL MCH (27.0-31.0) pg MCHC (33.0-37.0) g/dL RDW (11.5-14.5) % Plt Count (130-400) K/uL MPV (7.2-11.7) fL Neut % (Auto) (50.0-75.0) % Lymph % (Auto) (20.0-40.0) % Tyler % (Auto) (0.0-10.0) % Eos % (Auto) (0.0-4.0) % Baso % (Auto) (0.0-2.0) % Neut # (Auto) (1.8-7.0) K/uL Lymph # (Auto) (1.0-4.3) K/uL Tyler # (Auto) (0.0-0.8) K/uL Eos # (Auto) (0.0-0.7) K/uL Baso # (Auto) (0.0-0.2) K/uL Neutrophils % (Manual) (50-75) % Band Neutrophils % (0-2) % Lymphocytes % (Manual) (20-40) % Monocytes % (Manual) (0-10) % Platelet Estimate (NORMAL) Hypochromasia (manual) Anisocytosis (manual) Target Cells PT 23.5 H (9.7-12.2) SECONDS INR 2.1 pO2 (30-55) mm/Hg VBG pH (7.32-7.43) VBG pCO2 (40-60) mmHg VBG HCO3 mmol/L VBG Total CO2 (22-28) mmol/L VBG O2 Sat (Calc) (40-65) % VBG Base Excess (0.0-2.0) mmol/L VBG Potassium (3.6-5.2) mmol/L Sodium (132-148) mmol/l Chloride (98-107) mmol/L Glucose (75-110) mg/dl Lactate (0.7-2.1) mmol/L Crit Value Called To Crit Value Called By Crit Value Read Back Blood Gas Notified Time Potassium (3.6-5.2) mmol/L Carbon Dioxide (22-30) mmol/L Anion Gap (10-20) BUN (9-20) mg/dL Creatinine (0.8-1.5) mg/dL Est GFR ( Amer) Est GFR (Non-Af Amer) POC Glucose (mg/dL) (65-110) mg/dL Random Glucose (75-110) mg/dL Calcium (8.6-10.4) mg/dl Phosphorus (2.5-4.5) mg/dL Magnesium (1.6-2.3) mg/dL Total Bilirubin (0.2-1.3) mg/dL AST (17-59) U/L ALT (21-72) U/L Alkaline Phosphatase (38-126) U/L Ammonia 23 D (9-33) umol/L Total Protein (6.3-8.3) g/dL Albumin (3.5-5.0) g/dL Globulin (2.2-3.9) gm/dL Albumin/Globulin Ratio (1.0-2.1) Venous Blood Potassium (3.6-5.2) mmol/L Urine Osmolality (300-1000) mosm/kg Ur Random Creatinine 80.1 mg/dL U Random Total Protein 25.0 H (0.0-12.0) mg/dL Ur Random Sodium 10 mmol/L Blood Type Antibody Screen 01/05/18 01/05/18 01/05/18 Range/Units 14:12 14:05 11:36 WBC 7.2 (4.8-10.8) K/uL RBC 2.35 L (4.40-5.90) Mil/uL Hgb 6.7 L (12.0-18.0) g/dL Hct 19.0 L (35.0-51.0) % MCV 80.7 (80.0-94.0) fL MCH 28.7 (27.0-31.0) pg MCHC 35.5 (33.0-37.0) g/dL RDW 16.8 H (11.5-14.5) % Plt Count 85 L (130-400) K/uL MPV 8.3 (7.2-11.7) fL Neut % (Auto) 85.4 H (50.0-75.0) % Lymph % (Auto) 10.1 L (20.0-40.0) % Tyler % (Auto) 4.3 (0.0-10.0) % Eos % (Auto) 0.0 (0.0-4.0) % Baso % (Auto) 0.2 (0.0-2.0) % Neut # (Auto) 6.2 (1.8-7.0) K/uL Lymph # (Auto) 0.7 L (1.0-4.3) K/uL Tyler # (Auto) 0.3 (0.0-0.8) K/uL Eos # (Auto) 0.0 (0.0-0.7) K/uL Baso # (Auto) 0.0 (0.0-0.2) K/uL Neutrophils % (Manual) (50-75) % Band Neutrophils % (0-2) % Lymphocytes % (Manual) (20-40) % Monocytes % (Manual) (0-10) % Platelet Estimate (NORMAL) Hypochromasia (manual) Anisocytosis (manual) Target Cells PT (9.7-12.2) SECONDS INR pO2 20 L (30-55) mm/Hg VBG pH 7.31 L (7.32-7.43) VBG pCO2 44 (40-60) mmHg VBG HCO3 19.8 mmol/L VBG Total CO2 23.6 (22-28) mmol/L VBG O2 Sat (Calc) 47.1 (40-65) % VBG Base Excess -4.1 L (0.0-2.0) mmol/L VBG Potassium 9.8 H* (3.6-5.2) mmol/L Sodium 116.0 L* (132-148) mmol/l Chloride 87.0 L (98-107) mmol/L Glucose 536 H* D (75-110) mg/dl Lactate 1.9 (0.7-2.1) mmol/L Crit Value Called To Dr darrell diane Crit Value Called By Geeta urbina aerologist Crit Value Read Back Y Blood Gas Notified Time 1410 Potassium (3.6-5.2) mmol/L Carbon Dioxide (22-30) mmol/L Anion Gap (10-20) BUN (9-20) mg/dL Creatinine (0.8-1.5) mg/dL Est GFR ( Amer) Est GFR (Non-Af Amer) POC Glucose (mg/dL) 209 H (65-110) mg/dL Random Glucose (75-110) mg/dL Calcium (8.6-10.4) mg/dl Phosphorus (2.5-4.5) mg/dL Magnesium (1.6-2.3) mg/dL Total Bilirubin (0.2-1.3) mg/dL AST (17-59) U/L ALT (21-72) U/L Alkaline Phosphatase (38-126) U/L Ammonia (9-33) umol/L Total Protein (6.3-8.3) g/dL Albumin (3.5-5.0) g/dL Globulin (2.2-3.9) gm/dL Albumin/Globulin Ratio (1.0-2.1) Venous Blood Potassium 9.8 H* (3.6-5.2) mmol/L Urine Osmolality (300-1000) mosm/kg Ur Random Creatinine mg/dL U Random Total Protein (0.0-12.0) mg/dL Ur Random Sodium mmol/L Blood Type Antibody Screen 01/05/18 01/05/18 01/04/18 Range/Units 10:37 07:53 14:10 WBC (4.8-10.8) K/uL RBC (4.40-5.90) Mil/uL Hgb (12.0-18.0) g/dL Hct (35.0-51.0) % MCV (80.0-94.0) fL MCH (27.0-31.0) pg MCHC (33.0-37.0) g/dL RDW (11.5-14.5) % Plt Count (130-400) K/uL MPV (7.2-11.7) fL Neut % (Auto) (50.0-75.0) % Lymph % (Auto) (20.0-40.0) % Tyler % (Auto) (0.0-10.0) % Eos % (Auto) (0.0-4.0) % Baso % (Auto) (0.0-2.0) % Neut # (Auto) (1.8-7.0) K/uL Lymph # (Auto) (1.0-4.3) K/uL Tyler # (Auto) (0.0-0.8) K/uL Eos # (Auto) (0.0-0.7) K/uL Baso # (Auto) (0.0-0.2) K/uL Neutrophils % (Manual) 86 H (50-75) % Band Neutrophils % 3 H (0-2) % Lymphocytes % (Manual) 9 L (20-40) % Monocytes % (Manual) 2 (0-10) % Platelet Estimate Decreased L (NORMAL) Hypochromasia (manual) Slight Anisocytosis (manual) Slight Target Cells Moderate PT 21.1 H (9.7-12.2) SECONDS INR 1.9 pO2 (30-55) mm/Hg VBG pH (7.32-7.43) VBG pCO2 (40-60) mmHg VBG HCO3 mmol/L VBG Total CO2 (22-28) mmol/L VBG O2 Sat (Calc) (40-65) % VBG Base Excess (0.0-2.0) mmol/L VBG Potassium (3.6-5.2) mmol/L Sodium (132-148) mmol/l Chloride (98-107) mmol/L Glucose (75-110) mg/dl Lactate (0.7-2.1) mmol/L Crit Value Called To Crit Value Called By Crit Value Read Back Blood Gas Notified Time Potassium (3.6-5.2) mmol/L Carbon Dioxide (22-30) mmol/L Anion Gap (10-20) BUN (9-20) mg/dL Creatinine (0.8-1.5) mg/dL Est GFR ( Amer) Est GFR (Non-Af Amer) POC Glucose (mg/dL) (65-110) mg/dL Random Glucose (75-110) mg/dL Calcium (8.6-10.4) mg/dl Phosphorus (2.5-4.5) mg/dL Magnesium (1.6-2.3) mg/dL Total Bilirubin (0.2-1.3) mg/dL AST (17-59) U/L ALT (21-72) U/L Alkaline Phosphatase (38-126) U/L Ammonia (9-33) umol/L Total Protein (6.3-8.3) g/dL Albumin (3.5-5.0) g/dL Globulin (2.2-3.9) gm/dL Albumin/Globulin Ratio (1.0-2.1) Venous Blood Potassium (3.6-5.2) mmol/L Urine Osmolality (300-1000) mosm/kg Ur Random Creatinine mg/dL U Random Total Protein (0.0-12.0) mg/dL Ur Random Sodium mmol/L Blood Type O POSITIVE Antibody Screen Negative Laboratory Results - last 24 hr 01/04/18 01/05/18 01/05/18 14:10 07:53 10:37 WBC RBC Hgb Hct MCV MCH MCHC RDW Plt Count MPV Neut % (Auto) Lymph % (Auto) Tyler % (Auto) Eos % (Auto) Baso % (Auto) Neut # (Auto) Lymph # (Auto) Tyler # (Auto) Eos # (Auto) Baso # (Auto) Neutrophils % (Manual) 86 H Band Neutrophils % 3 H Lymphocytes % (Manual) 9 L Monocytes % (Manual) 2 Platelet Estimate Decreased L Hypochromasia (manual) Slight Anisocytosis (manual) Slight Target Cells Moderate PT 21.1 H INR 1.9 pO2 VBG pH VBG pCO2 VBG HCO3 VBG Total CO2 VBG O2 Sat (Calc) VBG Base Excess VBG Potassium Sodium Chloride Glucose Lactate Crit Value Called To Crit Value Called By Crit Value Read Back Blood Gas Notified Time Potassium Carbon Dioxide Anion Gap BUN Creatinine Est GFR ( Amer) Est GFR (Non-Af Amer) POC Glucose (mg/dL) Random Glucose Calcium Phosphorus Magnesium Total Bilirubin AST ALT Alkaline Phosphatase Ammonia Total Protein Albumin Globulin Albumin/Globulin Ratio Venous Blood Potassium Urine Osmolality Ur Random Creatinine U Random Total Protein Ur Random Sodium Blood Type O POSITIVE Antibody Screen Negative 01/05/18 01/05/18 01/05/18 11:36 14:05 14:12 WBC 7.2 RBC 2.35 L Hgb 6.7 L Hct 19.0 L MCV 80.7 MCH 28.7 MCHC 35.5 RDW 16.8 H Plt Count 85 L MPV 8.3 Neut % (Auto) 85.4 H Lymph % (Auto) 10.1 L Tyler % (Auto) 4.3 Eos % (Auto) 0.0 Baso % (Auto) 0.2 Neut # (Auto) 6.2 Lymph # (Auto) 0.7 L Tyler # (Auto) 0.3 Eos # (Auto) 0.0 Baso # (Auto) 0.0 Neutrophils % (Manual) Band Neutrophils % Lymphocytes % (Manual) Monocytes % (Manual) Platelet Estimate Hypochromasia (manual) Anisocytosis (manual) Target Cells PT INR pO2 20 L VBG pH 7.31 L VBG pCO2 44 VBG HCO3 19.8 VBG Total CO2 23.6 VBG O2 Sat (Calc) 47.1 VBG Base Excess -4.1 L VBG Potassium 9.8 H* Sodium 116.0 L* Chloride 87.0 L Glucose 536 H* D Lactate 1.9 Crit Value Called To Dr darrell diane Crit Value Called By Geeta urbina aerologist Crit Value Read Back Y Blood Gas Notified Time 1410 Potassium Carbon Dioxide Anion Gap BUN Creatinine Est GFR ( Amer) Est GFR (Non-Af Amer) POC Glucose (mg/dL) 209 H Random Glucose Calcium Phosphorus Magnesium Total Bilirubin AST ALT Alkaline Phosphatase Ammonia Total Protein Albumin Globulin Albumin/Globulin Ratio Venous Blood Potassium 9.8 H* Urine Osmolality Ur Random Creatinine U Random Total Protein Ur Random Sodium Blood Type Antibody Screen 01/05/18 01/05/18 01/05/18 14:12 14:12 15:16 WBC RBC Hgb Hct MCV MCH MCHC RDW Plt Count MPV Neut % (Auto) Lymph % (Auto) Tyler % (Auto) Eos % (Auto) Baso % (Auto) Neut # (Auto) Lymph # (Auto) Tyler # (Auto) Eos # (Auto) Baso # (Auto) Neutrophils % (Manual) Band Neutrophils % Lymphocytes % (Manual) Monocytes % (Manual) Platelet Estimate Hypochromasia (manual) Anisocytosis (manual) Target Cells PT 23.5 H INR 2.1 pO2 VBG pH VBG pCO2 VBG HCO3 VBG Total CO2 VBG O2 Sat (Calc) VBG Base Excess VBG Potassium Sodium Chloride Glucose Lactate Crit Value Called To Crit Value Called By Crit Value Read Back Blood Gas Notified Time Potassium Carbon Dioxide Anion Gap BUN Creatinine Est GFR ( Amer) Est GFR (Non-Af Amer) POC Glucose (mg/dL) Random Glucose Calcium Phosphorus Magnesium Total Bilirubin AST ALT Alkaline Phosphatase Ammonia 23 D Total Protein Albumin Globulin Albumin/Globulin Ratio Venous Blood Potassium Urine Osmolality Ur Random Creatinine 80.1 U Random Total Protein 25.0 H Ur Random Sodium 10 Blood Type Antibody Screen 01/05/18 01/05/18 01/05/18 15:16 15:16 15:16 WBC 10.2 RBC 2.87 L Hgb 8.3 L Hct 23.0 L MCV 80.1 MCH 28.8 MCHC 35.9 RDW 16.7 H Plt Count 96 L MPV 8.1 Neut % (Auto) 85.3 H Lymph % (Auto) 10.4 L Tyler % (Auto) 3.6 Eos % (Auto) 0.1 Baso % (Auto) 0.6 Neut # (Auto) 8.7 H Lymph # (Auto) 1.1 Tyler # (Auto) 0.4 Eos # (Auto) 0.0 Baso # (Auto) 0.1 Neutrophils % (Manual) Band Neutrophils % Lymphocytes % (Manual) Monocytes % (Manual) Platelet Estimate Hypochromasia (manual) Anisocytosis (manual) Target Cells PT INR pO2 VBG pH VBG pCO2 VBG HCO3 VBG Total CO2 VBG O2 Sat (Calc) VBG Base Excess VBG Potassium Sodium 130 L Chloride 90 L Glucose Lactate Crit Value Called To Crit Value Called By Crit Value Read Back Blood Gas Notified Time Potassium 3.0 L Carbon Dioxide 25 Anion Gap 18 BUN 43 H Creatinine 2.4 H Est GFR ( Amer) 35 Est GFR (Non-Af Amer) 29 POC Glucose (mg/dL) Random Glucose 184 H Calcium 7.5 L Phosphorus 2.3 L Magnesium 1.7 Total Bilirubin 10.2 H AST 109 H ALT 29 Alkaline Phosphatase 123 Ammonia 16 D Total Protein 7.1 Albumin 3.1 L Globulin 4.0 H Albumin/Globulin Ratio 0.8 L Venous Blood Potassium Urine Osmolality Ur Random Creatinine U Random Total Protein Ur Random Sodium Blood Type Antibody Screen 01/05/18 01/05/18 01/05/18 15:16 15:53 17:42 WBC RBC Hgb Hct MCV MCH MCHC RDW Plt Count MPV Neut % (Auto) Lymph % (Auto) Tyler % (Auto) Eos % (Auto) Baso % (Auto) Neut # (Auto) Lymph # (Auto) Tyler # (Auto) Eos # (Auto) Baso # (Auto) Neutrophils % (Manual) Band Neutrophils % Lymphocytes % (Manual) Monocytes % (Manual) Platelet Estimate Hypochromasia (manual) Anisocytosis (manual) Target Cells PT 21.2 H INR 1.9 pO2 VBG pH VBG pCO2 VBG HCO3 VBG Total CO2 VBG O2 Sat (Calc) VBG Base Excess VBG Potassium Sodium Chloride Glucose Lactate Crit Value Called To Crit Value Called By Crit Value Read Back Blood Gas Notified Time Potassium Carbon Dioxide Anion Gap BUN Creatinine Est GFR ( Amer) Est GFR (Non-Af Amer) POC Glucose (mg/dL) 216 H Random Glucose Calcium Phosphorus Magnesium Total Bilirubin AST ALT Alkaline Phosphatase Ammonia Total Protein Albumin Globulin Albumin/Globulin Ratio Venous Blood Potassium Urine Osmolality 318 Ur Random Creatinine U Random Total Protein Ur Random Sodium Blood Type Antibody Screen 01/06/18 01/06/18 01/06/18 00:13 00:52 05:16 WBC RBC Hgb Hct MCV MCH MCHC RDW Plt Count MPV Neut % (Auto) Lymph % (Auto) Tyler % (Auto) Eos % (Auto) Baso % (Auto) Neut # (Auto) Lymph # (Auto) Tyler # (Auto) Eos # (Auto) Baso # (Auto) Neutrophils % (Manual) Band Neutrophils % Lymphocytes % (Manual) Monocytes % (Manual) Platelet Estimate Hypochromasia (manual) Anisocytosis (manual) Target Cells PT INR pO2 VBG pH VBG pCO2 VBG HCO3 VBG Total CO2 VBG O2 Sat (Calc) VBG Base Excess VBG Potassium Sodium 125 L Chloride 89 L Glucose Lactate Crit Value Called To Crit Value Called By Crit Value Read Back Blood Gas Notified Time Potassium 3.1 L Carbon Dioxide 22 Anion Gap 17 BUN 36 H Creatinine 1.9 H Est GFR ( Amer) 45 Est GFR (Non-Af Amer) 37 POC Glucose (mg/dL) 285 H 223 H Random Glucose 380 H Calcium 6.4 L Phosphorus Magnesium Total Bilirubin AST ALT Alkaline Phosphatase Ammonia Total Protein Albumin Globulin Albumin/Globulin Ratio Venous Blood Potassium Urine Osmolality Ur Random Creatinine U Random Total Protein Ur Random Sodium Blood Type Antibody Screen 01/06/18 01/06/18 01/06/18 06:40 06:50 07:34 WBC 8.8 RBC 2.79 L Hgb 8.1 L Hct 22.3 L MCV 80.0 MCH 28.9 MCHC 36.1 RDW 17.5 H Plt Count 90 L MPV 8.8 Neut % (Auto) 81.7 H Lymph % (Auto) 12.6 L Tyler % (Auto) 5.4 Eos % (Auto) 0.1 Baso % (Auto) 0.2 Neut # (Auto) 7.2 H Lymph # (Auto) 1.1 Tyler # (Auto) 0.5 Eos # (Auto) 0.0 Baso # (Auto) 0.0 Neutrophils % (Manual) Band Neutrophils % Lymphocytes % (Manual) Monocytes % (Manual) Platelet Estimate Hypochromasia (manual) Anisocytosis (manual) Target Cells PT 20.4 H INR 1.9 pO2 VBG pH VBG pCO2 VBG HCO3 VBG Total CO2 VBG O2 Sat (Calc) VBG Base Excess VBG Potassium Sodium 131 L Chloride 95 L Glucose Lactate Crit Value Called To Crit Value Called By Crit Value Read Back Blood Gas Notified Time Potassium 4.0 Carbon Dioxide 21 L Anion Gap 19 BUN 39 H Creatinine 2.1 H Est GFR ( Amer) 40 Est GFR (Non-Af Amer) 33 POC Glucose (mg/dL) Random Glucose 193 H Calcium 6.8 L Phosphorus 1.6 L Magnesium 2.1 Total Bilirubin 7.3 H AST 85 H D ALT 26 Alkaline Phosphatase 101 Ammonia Total Protein 6.8 Albumin 3.0 L Globulin 3.7 Albumin/Globulin Ratio 0.8 L Venous Blood Potassium Urine Osmolality Ur Random Creatinine U Random Total Protein Ur Random Sodium Blood Type Antibody Screen Fingerstick Blood Sugar Results: 193 Critical Care Progress Note - Nutrition Nutrition: Nutrition Category Date Time Status NPO Diet [DIET] Diets 01/04/18 Dinner Active Assessment/Plan - Assessment and Plan (Free Text) Assessment: This is a 52 year old male with PMHx of Liver Cirrhosis with recurrent ascites, hepatic encephalopathy, ?chronic pancreatitis, with pancreatic insufficiency, Anemia of Chronic Disease admitted for SEVERE Anemia, Hypokalemi, ARF, AMS likely 2/2 Hepatic Encephalopathy, ? GIB. Plan: Neuro: GCS 15 A: AMS 2/2 Hepatic Encephalopathy GI: A: GIB?? - Hemoglobin 2.9 on admission, no hx of AC use - Prior EGD 07/2017 - no varices noted - Stool Occult - negative - PPI Drip, Octreotide - EGD scheduled for 01/06 A: Decompensated Liver Cirrhosis - MELD score on admission 32, with Mortality of 53% - - CT Chest, abdomen, pelvis: Increased number of hepatic lesions lung poorly characterized in the absence of intravenous contrast.Extensive abdominal ascites and small pleural effusions. Nonspecific hyperdense area layering dependently within the ascites on the left, not present on previous CT scan dated 07/31/2017.Nonspecific thickening of the colon which may be reactive in the setting of ascites or may represent colitis. Mild left hydroureteronephrosis without evidence of obstructive calculus. - Abdominal US: A: Ascites - Noted on CT abdomen, pelvis and abdominal us - Paracentesis ordered with cytology to rule out SBP; will be performed at bedside - Will need albumin s/p paracenthesis - Started on Rocephin 1 gram daily for prophylaxis A: Hepatic Encephalopathy - Ammonia <20 on admission, - Refrain from Lactulose, Xifaximin - until electrolytes normalize A: Possible Chronic Pancreatitis, Pancreatic insufficiency - Restarted Pancreaze 21K PO TIDCC Previous admission 07/2017: - Per Dr. South, he suspects pancreatic insufficiency as possible cause due to low stool pancreatic elastase and ordered an MRCP which was unable to be obtained due to patient restlessness - Dr. South consulted Dr. Guerrero for evaluation of possible chronic pancreatitis and possible EUS work up * Per Dr. Guerrero, pursue EUS as an outpatient for definitive diagnosis of chronic pancreatitis * Pancreatic enzymes were started with meals (Cholestyramine Resin (Questran) 4 gm PO TIDPC SABINA) and Aldactone increased to 50 mg PO BID by GI team * [place] [address] units TID with meals Previous Admission 07/2017 - Endoscopy (07/28): small hiatal hernia, patchy mild inflammation in gastric antrum biopsies, scalloped mucosa found in duodenum, suspicious for celiac disease- biopsied; Biopsy: Benign - Colonoscopy (07/28): internal hemorrhoids, mucosal nodule in the sigmoid colon , in transverse colon and in the ascending colon- biopsied; Biopsy; benign Renal: A: ARF - Normal Baseline - Continue with IVF - Possible Hepatorenal syndrome? A: Electrolyte imbalance - Hypokalemia 1.4 on admission - Aggressively replenishing all electrolytes Heme/ Onc: A: Anemia of chronic disease - Chronic likely 2/2 bone supression from ETOH - Concern for GIB with recent report of dark, tarry stools - Baseline hemoglobin 8s - 2.9 on admission - Received total 3 units PRBCs, 2 FFP - Hemoglobin now stable, no active bleeding - Continue to monitor A: Coagulopathy - INR - 2.3 admission, now 1.9 - S/P Vitamin K x 15 mg total - FFP x 2 - Continue to monitor Psych: A: ETOH Abuse - Will receive MV, thiamine, folic IV then PO once patient is not NPO - Alcohol level 25 on admission - Ativan PRN Prophylaxis - Protonix Drip - SCDs, VTE c/i - As per previous admission: DNR/DNI after palliative care discussion 07/2017. POLST form was filled out during that admission - PT eval, speech, and swallow eval - Lines: R PICC DW Darrell Arevalo DO, PGY-1 <Allen Peng - Last Filed: 01/07/18 11:55> CCU Objective - Vital Signs / Intake & Output Vital Signs (Last 4 hours): Vital Signs Pulse Resp BP Pulse Ox 01/07/18 07:55 87 12 100/66 100 Intake and Output (Last 8hrs): Intake & Output 01/06/18 01/07/18 01/07/18 22:59 06:59 14:59 Intake Total 1100 1050 300 Output Total 7000 300 Balance -5900 750 300 Weight 103 lb 3.2 oz Intake: Intake, IV Amount 1000 800 250 Left Forearm 200 Right PICC 1 400 400 150 Right PICC 2 400 400 100 Oral 100 250 50 Output: Urine 0 300 Urine, Voided 0 300 Stool 0 0 Other 7000 Other: # Bowel Movements 1 - Medications Active Medications: Active Medications Generic Name Dose Route Start Last Admin Trade Name Freq PRN Reason Stop Dose Admin Albumin Human 12.5 gm 01/07/18 15:00 Albumin Human 25% (12.5 Gm/50 Ml) IV 01/09/18 15:01 Q8H SABINA Dextrose 0 ml 01/04/18 19:08 Dextrose 50% Inj IV STAT PRN Hypoglycemia Protocol Protocol Dextrose 0 gm 01/04/18 19:08 Glutose 15 PO ONCE PRN Hypoglycemia Protocol Protocol Folic Acid 1 mg 01/07/18 10:30 01/07/18 10:43 Folic Acid PO 1 mg DAILY SABINA Administration Glucagon 0 mg 01/04/18 18:57 Glucagen Diagnostic Kit IM STAT PRN Hypoglycemia Protocol Protocol Dextrose 1,000 mls @ 0 mls/hr 01/04/18 19:06 Dextrose 5% In Water 1000 Ml IV .Q0M PRN Hypoglycemia Protocol Protocol Per Protocol Insulin Human Regular 0 unit 01/07/18 07:45 01/07/18 08:04 Novolin R SC 1 unit ACHS SABINA Administration Protocol Midodrine 2.5 mg 01/06/18 10:00 01/07/18 09:11 Proamatine PO 2.5 mg TID SABINA Administration Multivitamins/Vitamin C 5 ml 01/07/18 10:30 01/07/18 10:43 Multi-Delyn Liquid PO 5 ml DAILY SABINA Administration Spironolactone 50 mg 01/07/18 10:45 01/07/18 10:44 Aldactone PO 50 mg DAILY SABINA Administration Thiamine HCl 100 mg 01/07/18 10:30 01/07/18 10:43 Vitamin B1 Tab PO 100 mg DAILY SABINA Administration - Patient Studies Lab Studies: Microbiology Studies 01/05/18 Unknown Gram Stain - Final Abdominal Fluid 01/04/18 18:10 Blood Culture - Preliminary Blood NO GROWTH AFTER 48 HOURS 01/04/18 18:10 Blood Culture - Preliminary Blood NO GROWTH AFTER 48 HOURS Lab Studies 01/07/18 01/07/18 01/07/18 Range/Units 11:26 07:37 06:30 WBC (4.8-10.8) K/uL RBC (4.40-5.90) Mil/uL Hgb (12.0-18.0) g/dL Hct (35.0-51.0) % MCV (80.0-94.0) fL MCH (27.0-31.0) pg MCHC (33.0-37.0) g/dL RDW (11.5-14.5) % Plt Count (130-400) K/uL MPV (7.2-11.7) fL Neut % (Auto) (50.0-75.0) % Lymph % (Auto) (20.0-40.0) % Tyler % (Auto) (0.0-10.0) % Eos % (Auto) (0.0-4.0) % Baso % (Auto) (0.0-2.0) % Neut # (Auto) (1.8-7.0) K/uL Lymph # (Auto) (1.0-4.3) K/uL Tyler # (Auto) (0.0-0.8) K/uL Eos # (Auto) (0.0-0.7) K/uL Baso # (Auto) (0.0-0.2) K/uL PT 26.8 H D (9.7-12.2) SECONDS INR 2.4 D Sodium (132-148) mmol/L Potassium (3.6-5.2) mmol/L Chloride (98-107) mmol/L Carbon Dioxide (22-30) mmol/L Anion Gap (10-20) BUN (9-20) mg/dL Creatinine (0.8-1.5) mg/dL Est GFR ( Amer) Est GFR (Non-Af Amer) POC Glucose (mg/dL) 228 H 181 H (65-110) mg/dL Random Glucose (75-110) mg/dL Calcium (8.6-10.4) mg/dl Phosphorus (2.5-4.5) mg/dL Magnesium (1.6-2.3) mg/dL Total Bilirubin (0.2-1.3) mg/dL AST (17-59) U/L ALT (21-72) U/L Alkaline Phosphatase (38-126) U/L Total Protein (6.3-8.3) g/dL Albumin (3.5-5.0) g/dL Globulin (2.2-3.9) gm/dL Albumin/Globulin Ratio (1.0-2.1) Fluid Source Fluid Appearance (CLEAR) Fluid WBC (0.0-300.0) /mm3 Fluid RBC (0.0-0.0) /mm3 Fluid Tot Cell Count (0-0) Fluid Neutrophils (0-0) % Fluid Lymphocytes (0-0) % Fld Monocyte/Macrophag (0-0) % Fluid Comment 01/07/18 01/07/18 01/07/18 Range/Units 06:30 06:30 05:25 WBC 7.4 (4.8-10.8) K/uL RBC 2.56 L (4.40-5.90) Mil/uL Hgb 7.3 L (12.0-18.0) g/dL Hct 20.7 L (35.0-51.0) % MCV 80.8 (80.0-94.0) fL MCH 28.6 (27.0-31.0) pg MCHC 35.4 (33.0-37.0) g/dL RDW 18.1 H (11.5-14.5) % Plt Count 62 L D (130-400) K/uL MPV 8.7 (7.2-11.7) fL Neut % (Auto) 82.2 H (50.0-75.0) % Lymph % (Auto) 11.1 L (20.0-40.0) % Tyler % (Auto) 6.2 (0.0-10.0) % Eos % (Auto) 0.3 (0.0-4.0) % Baso % (Auto) 0.2 (0.0-2.0) % Neut # (Auto) 6.1 (1.8-7.0) K/uL Lymph # (Auto) 0.8 L (1.0-4.3) K/uL Tyler # (Auto) 0.5 (0.0-0.8) K/uL Eos # (Auto) 0.0 (0.0-0.7) K/uL Baso # (Auto) 0.0 (0.0-0.2) K/uL PT (9.7-12.2) SECONDS INR Sodium 136 (132-148) mmol/L Potassium 3.6 (3.6-5.2) mmol/L Chloride 100 (98-107) mmol/L Carbon Dioxide 20 L (22-30) mmol/L Anion Gap 20 (10-20) BUN 28 H (9-20) mg/dL Creatinine 1.8 H (0.8-1.5) mg/dL Est GFR ( Amer) 48 Est GFR (Non-Af Amer) 40 POC Glucose (mg/dL) 168 H (65-110) mg/dL Random Glucose 153 H (75-110) mg/dL Calcium 6.9 L (8.6-10.4) mg/dl Phosphorus 3.7 (2.5-4.5) mg/dL Magnesium 1.6 (1.6-2.3) mg/dL Total Bilirubin 5.8 H (0.2-1.3) mg/dL AST 61 H D (17-59) U/L ALT 30 (21-72) U/L Alkaline Phosphatase 61 (38-126) U/L Total Protein 5.1 L (6.3-8.3) g/dL Albumin 2.6 L (3.5-5.0) g/dL Globulin 2.5 (2.2-3.9) gm/dL Albumin/Globulin Ratio 1.0 (1.0-2.1) Fluid Source Fluid Appearance (CLEAR) Fluid WBC (0.0-300.0) /mm3 Fluid RBC (0.0-0.0) /mm3 Fluid Tot Cell Count (0-0) Fluid Neutrophils (0-0) % Fluid Lymphocytes (0-0) % Fld Monocyte/Macrophag (0-0) % Fluid Comment 01/06/18 01/06/18 01/06/18 Range/Units 23:33 19:38 17:30 WBC (4.8-10.8) K/uL RBC (4.40-5.90) Mil/uL Hgb (12.0-18.0) g/dL Hct (35.0-51.0) % MCV (80.0-94.0) fL MCH (27.0-31.0) pg MCHC (33.0-37.0) g/dL RDW (11.5-14.5) % Plt Count (130-400) K/uL MPV (7.2-11.7) fL Neut % (Auto) (50.0-75.0) % Lymph % (Auto) (20.0-40.0) % Tyler % (Auto) (0.0-10.0) % Eos % (Auto) (0.0-4.0) % Baso % (Auto) (0.0-2.0) % Neut # (Auto) (1.8-7.0) K/uL Lymph # (Auto) (1.0-4.3) K/uL Tyler # (Auto) (0.0-0.8) K/uL Eos # (Auto) (0.0-0.7) K/uL Baso # (Auto) (0.0-0.2) K/uL PT (9.7-12.2) SECONDS INR Sodium (132-148) mmol/L Potassium (3.6-5.2) mmol/L Chloride (98-107) mmol/L Carbon Dioxide (22-30) mmol/L Anion Gap (10-20) BUN (9-20) mg/dL Creatinine (0.8-1.5) mg/dL Est GFR ( Amer) Est GFR (Non-Af Amer) POC Glucose (mg/dL) 139 H 153 H (65-110) mg/dL Random Glucose (75-110) mg/dL Calcium (8.6-10.4) mg/dl Phosphorus (2.5-4.5) mg/dL Magnesium (1.6-2.3) mg/dL Total Bilirubin (0.2-1.3) mg/dL AST (17-59) U/L ALT (21-72) U/L Alkaline Phosphatase (38-126) U/L Total Protein (6.3-8.3) g/dL Albumin (3.5-5.0) g/dL Globulin (2.2-3.9) gm/dL Albumin/Globulin Ratio (1.0-2.1) Fluid Source Peritoneal/ascites Fluid Appearance Sl cloudy (CLEAR) Fluid WBC 116.0 (0.0-300.0) /mm3 Fluid RBC 3076.0 H (0.0-0.0) /mm3 Fluid Tot Cell Count 100 H (0-0) Fluid Neutrophils 39.0 H (0-0) % Fluid Lymphocytes 57.0 H (0-0) % Fld Monocyte/Macrophag 3 H (0-0) % Fluid Comment 01/06/18 Range/Units 12:42 WBC (4.8-10.8) K/uL RBC (4.40-5.90) Mil/uL Hgb (12.0-18.0) g/dL Hct (35.0-51.0) % MCV (80.0-94.0) fL MCH (27.0-31.0) pg MCHC (33.0-37.0) g/dL RDW (11.5-14.5) % Plt Count (130-400) K/uL MPV (7.2-11.7) fL Neut % (Auto) (50.0-75.0) % Lymph % (Auto) (20.0-40.0) % Tyler % (Auto) (0.0-10.0) % Eos % (Auto) (0.0-4.0) % Baso % (Auto) (0.0-2.0) % Neut # (Auto) (1.8-7.0) K/uL Lymph # (Auto) (1.0-4.3) K/uL Tyler # (Auto) (0.0-0.8) K/uL Eos # (Auto) (0.0-0.7) K/uL Baso # (Auto) (0.0-0.2) K/uL PT (9.7-12.2) SECONDS INR Sodium (132-148) mmol/L Potassium (3.6-5.2) mmol/L Chloride (98-107) mmol/L Carbon Dioxide (22-30) mmol/L Anion Gap (10-20) BUN (9-20) mg/dL Creatinine (0.8-1.5) mg/dL Est GFR ( Amer) Est GFR (Non-Af Amer) POC Glucose (mg/dL) 189 H (65-110) mg/dL Random Glucose (75-110) mg/dL Calcium (8.6-10.4) mg/dl Phosphorus (2.5-4.5) mg/dL Magnesium (1.6-2.3) mg/dL Total Bilirubin (0.2-1.3) mg/dL AST (17-59) U/L ALT (21-72) U/L Alkaline Phosphatase (38-126) U/L Total Protein (6.3-8.3) g/dL Albumin (3.5-5.0) g/dL Globulin (2.2-3.9) gm/dL Albumin/Globulin Ratio (1.0-2.1) Fluid Source Fluid Appearance (CLEAR) Fluid WBC (0.0-300.0) /mm3 Fluid RBC (0.0-0.0) /mm3 Fluid Tot Cell Count (0-0) Fluid Neutrophils (0-0) % Fluid Lymphocytes (0-0) % Fld Monocyte/Macrophag (0-0) % Fluid Comment Laboratory Results - last 24 hr 01/06/18 01/06/18 01/06/18 12:42 17:30 19:38 WBC RBC Hgb Hct MCV MCH MCHC RDW Plt Count MPV Neut % (Auto) Lymph % (Auto) Tyler % (Auto) Eos % (Auto) Baso % (Auto) Neut # (Auto) Lymph # (Auto) Tyler # (Auto) Eos # (Auto) Baso # (Auto) PT INR Sodium Potassium Chloride Carbon Dioxide Anion Gap BUN Creatinine Est GFR ( Amer) Est GFR (Non-Af Amer) POC Glucose (mg/dL) 189 H 153 H Random Glucose Calcium Phosphorus Magnesium Total Bilirubin AST ALT Alkaline Phosphatase Total Protein Albumin Globulin Albumin/Globulin Ratio Fluid Source Peritoneal/ascites Fluid Appearance Sl cloudy Fluid WBC 116.0 Fluid RBC 3076.0 H Fluid Tot Cell Count 100 H Fluid Neutrophils 39.0 H Fluid Lymphocytes 57.0 H Fld Monocyte/Macrophag 3 H Fluid Comment 01/06/18 01/07/18 01/07/18 23:33 05:25 06:30 WBC 7.4 RBC 2.56 L Hgb 7.3 L Hct 20.7 L MCV 80.8 MCH 28.6 MCHC 35.4 RDW 18.1 H Plt Count 62 L D MPV 8.7 Neut % (Auto) 82.2 H Lymph % (Auto) 11.1 L Tyler % (Auto) 6.2 Eos % (Auto) 0.3 Baso % (Auto) 0.2 Neut # (Auto) 6.1 Lymph # (Auto) 0.8 L Tyler # (Auto) 0.5 Eos # (Auto) 0.0 Baso # (Auto) 0.0 PT INR Sodium Potassium Chloride Carbon Dioxide Anion Gap BUN Creatinine Est GFR ( Amer) Est GFR (Non-Af Amer) POC Glucose (mg/dL) 139 H 168 H Random Glucose Calcium Phosphorus Magnesium Total Bilirubin AST ALT Alkaline Phosphatase Total Protein Albumin Globulin Albumin/Globulin Ratio Fluid Source Fluid Appearance Fluid WBC Fluid RBC Fluid Tot Cell Count Fluid Neutrophils Fluid Lymphocytes Fld Monocyte/Macrophag Fluid Comment 01/07/18 01/07/18 01/07/18 06:30 06:30 07:37 WBC RBC Hgb Hct MCV MCH MCHC RDW Plt Count MPV Neut % (Auto) Lymph % (Auto) Tyler % (Auto) Eos % (Auto) Baso % (Auto) Neut # (Auto) Lymph # (Auto) Tyler # (Auto) Eos # (Auto) Baso # (Auto) PT 26.8 H D INR 2.4 D Sodium 136 Potassium 3.6 Chloride 100 Carbon Dioxide 20 L Anion Gap 20 BUN 28 H Creatinine 1.8 H Est GFR ( Amer) 48 Est GFR (Non-Af Amer) 40 POC Glucose (mg/dL) 181 H Random Glucose 153 H Calcium 6.9 L Phosphorus 3.7 Magnesium 1.6 Total Bilirubin 5.8 H AST 61 H D ALT 30 Alkaline Phosphatase 61 Total Protein 5.1 L Albumin 2.6 L Globulin 2.5 Albumin/Globulin Ratio 1.0 Fluid Source Fluid Appearance Fluid WBC Fluid RBC Fluid Tot Cell Count Fluid Neutrophils Fluid Lymphocytes Fld Monocyte/Macrophag Fluid Comment 01/07/18 11:26 WBC RBC Hgb Hct MCV MCH MCHC RDW Plt Count MPV Neut % (Auto) Lymph % (Auto) Tyler % (Auto) Eos % (Auto) Baso % (Auto) Neut # (Auto) Lymph # (Auto) Tyler # (Auto) Eos # (Auto) Baso # (Auto) PT INR Sodium Potassium Chloride Carbon Dioxide Anion Gap BUN Creatinine Est GFR ( Amer) Est GFR (Non-Af Amer) POC Glucose (mg/dL) 228 H Random Glucose Calcium Phosphorus Magnesium Total Bilirubin AST ALT Alkaline Phosphatase Total Protein Albumin Globulin Albumin/Globulin Ratio Fluid Source Fluid Appearance Fluid WBC Fluid RBC Fluid Tot Cell Count Fluid Neutrophils Fluid Lymphocytes Fld Monocyte/Macrophag Fluid Comment Critical Care Progress Note - Nutrition Nutrition: Nutrition Category Date Time Status Altered GI/Hepatic Diet [DIET] Diets 01/07/18 Lunch Active Assessment/Plan - Assessment and Plan (Free Text) Plan: Above resident note reviewed and verified. Above resident has documented my clinical management. -Paracentesis today -continue IV albumin to help improve HRS -LIver failure with improving INR. -Patient will benefit from oral lactulose to keep 3 BMs/day -Prognosis poor as patient has multi-organ failure (lver/kidneys) -Patient remains hemodynamically stable. - Date & Time Date: 01/06/18 Time: 18:00
[2018-01-06] MEDS ORDERED: Multiple Vitamins Oral Solution PO SCH (10:00)
--- NOTE | 2018-01-06 10:22 | RAD ---
Procedure: Ultrasound and fluoroscopically placed Right upper extremity PICC. Clinical indication: Long-term IV access for medications. Technique: The relative risks and indications of the procedure were explained to the patient and written informed consent obtained. The patient was placed supine on the angiographic table and the right arm prepped and draped in the usual sterile fashion. A tourniquet was applied to the right axilla. 1% lidocaine was used to anesthetize the skin and soft tissues at the puncture site above the elbow. The right basilic vein was punctured under direct ultrasound guidance with a micropuncture set. A permanent image was stored. A 0.018 guidewire was advanced centrally and used to measure the length to the SVC/RA junction. A 5 Khmer double -lumen PICC, size 32 cm, was advanced to the SVC/RA junction under fluoroscopic guidance. The catheter was flushed and secured. The patient tolerated the procedure well. Postprocedure chest image was obtained to ensure location of the catheter tip at the SVC right atrial junction. Impression: Ultrasound and fluoroscopically placed right upper extremity PICC. A 5 Khmer double -lumen PICC, size 32 cm was advanced to the SVC/RA junction. PICC ready for use.
--- NOTE | 2018-01-06 10:32 | US ---
Procedure: Ultrasound and fluoroscopically placed Right upper extremity PICC. Clinical indication: Long-term IV access for medications. Technique: The relative risks and indications of the procedure were explained to the patient and written informed consent obtained. The patient was placed supine on the angiographic table and the right arm prepped and draped in the usual sterile fashion. A tourniquet was applied to the right axilla. 1% lidocaine was used to anesthetize the skin and soft tissues at the puncture site above the elbow. The right basilic vein was punctured under direct ultrasound guidance with a micropuncture set. A permanent image was stored. A 0.018 guidewire was advanced centrally and used to measure the length to the SVC/RA junction. A 4 Omani single-lumen PICC, size 32 cm, was advanced to the SVC/RA junction under fluoroscopic guidance. The catheter was flushed and secured. The patient tolerated the procedure well. Postprocedure chest image was obtained to ensure location of the catheter tip at the SVC right atrial junction. Impression: Ultrasound and fluoroscopically placed right upper extremity PICC. A 4 Omani single-lumen PICC, size 32 cm was advanced to the SVC/RA junction. PICC ready for use.
[2018-01-06] MEDS ORDERED: Lactated Ringer's 1,000 ML IV ONE (11:26)
[2018-01-06] MEDS ORDERED: Propofol 10 mg/ml Inj (20 ML) ONE (11:40)
[2018-01-06] MEDS ORDERED: Lidocaine Hydrochloride 5 ML INJ ONE (11:42)
--- NOTE | 2018-01-06 11:46 | CP.PCM.PCO ---
Physician Communication Note - Physician Communication Note Physician Communication Note: Patient rescinds DNR for endoscopy.
[2018-01-06] MEDS: Potassium & Sodium Phosphate PO SCH ×3 (13:01→20:38)
[2018-01-06] MEDS ORDERED: Multivitamin (MVI) 10 ML, Folic Acid 1 MG, Thiamine 100 MG in Sodium Chloride 0.9% 1,00... IV SCH (14:00)
[2018-01-06] MEDS ORDERED: Albumin Human 5% (12.5 gm/250 ml) IV ONE (18:17)
[2018-01-06 19:42] LABS: BODY FLUID TYPE PERITONEAL/ASCITES
[2018-01-06] MEDS ORDERED: Albumin Human 25% (12.5 gm/50 ml) IV ONE (19:57)
[2018-01-06 20:56] LABS: BF GROSS APPEARANCE SL CLOUDY (CLEAR); BODY FLUID MONO/MACROPHAGE 3 % (0-0); BODY FLUID TOTAL COUNT 100 (0-0)
[2018-01-07] MEDS: (Novolin R) Insulin Human Regular 100 units/ml vial SC SCH ×5 (05:35→21:25)
[2018-01-07] MEDS: SODIUM CHLORIDE IV SCH (05:36)
[2018-01-07] MEDS: SODIUM PHOSPHATE IV SCH (05:36)
[2018-01-07 06:40] LABS: BASO % 0.2 % (0.0-2.0); EOS % 0.3 % (0.0-4.0); HEMOGLOBIN 7.3 g/dL (12.0-18.0); LYMPH # 0.8 K/uL (1.0-4.3); LYMPH % 11.1 % (20.0-40.0); MEAN CELL VOLUME 80.8 fL (80.0-94.0); MEAN CORPUSCULAR HEMOGLOBIN 28.6 pg (27.0-31.0); MEAN CORPUSCULAR HGB CONC 35.4 g/dL (33.0-37.0); MEAN PLATELET VOLUME 8.7 fL (7.2-11.7); MONO # 0.5 K/uL (0.0-0.8); MONO % 6.2 % (0.0-10.0); NEUT # 6.1 K/uL (1.8-7.0); NEUT % 82.2 % (50.0-75.0); NRBC % 0.3 % (0.0-2.0); RBC 2.56 Mil/uL (4.40-5.90); RED CELL DISTRIBUTION WIDTH 18.1 % (11.5-14.5); WHITE BLOOD COUNT 7.4 K/uL (4.8-10.8)
[2018-01-07 06:55] LABS: INR 2.4; PROTHROMBIN TIME 26.8 SECONDS (9.7-12.2)
[2018-01-07 06:59] LABS: ALBUMIN 2.6 g/dL (3.5-5.0); CALCIUM 6.9 mg/dl (8.6-10.4)
--- NOTE | 2018-01-07 08:03 | CP.PCM.PN ---
Subjective - Date & Time of Evaluation Date of Evaluation: 01/06/18 Time of Evaluation: 12:00 - Subjective Subjective: Patient seen prior to abd paracentesis, admitted to [facility] pain at the time; subsequently with 7L drained on paracentesis this evening; Objective - Vital Signs/Intake and Output Vital Signs (last 24 hours): Temp Pulse Resp BP Pulse Ox 97.9 F 87 12 92/62 L 100 01/06/18 16:00 01/07/18 07:00 01/07/18 07:00 01/07/18 06:55 01/07/18 07:00 Intake and Output: 01/07/18 01/07/18 06:59 18:59 Intake Total 1750 100 Output Total 7300 Balance -5550 100 - Medications Medications: Current Medications Dextrose (Dextrose 50% Inj) 0 ml IV STAT PRN; Protocol PRN Reason: Hypoglycemia Protocol Dextrose (Glutose 15) 0 gm PO ONCE PRN; Protocol PRN Reason: Hypoglycemia Protocol Glucagon (Glucagen Diagnostic Kit) 0 mg IM STAT PRN; Protocol PRN Reason: Hypoglycemia Protocol Dextrose (Dextrose 5% In Water 1000 Ml) 1,000 mls @ 0 mls/hr IV .Q0M PRN; Protocol; Per Protocol PRN Reason: Hypoglycemia Protocol Ceftriaxone Sodium (Rocephin Iv 1 Gm Duplex) 50 mls @ 100 mls/hr IVPB DAILY SABINA PRN Reason: Protocol Last Admin: 01/06/18 09:30 Dose: 100 mls/hr Multivitamins/Vitamin C 10 ml/Folic Acid 1 mg/ Thiamine HCl 100 mg/ Sodium Chloride 1,011.2 mls @ 50 mls/hr IV Q24H [facility] Stop: 01/07/18 14:01 Last Admin: 01/06/18 14:49 Dose: 50 mls/hr Sodium Phosphate 15 mmole/ (Sodium Chloride) 505 mls @ 50 mls/hr IV .Q10H6M [facility] Last Admin: 01/07/18 05:36 Dose: Not Given Magnesium Sulfate/Dextrose (Magnesium Sulfate 1 Gm/100 Ml D5w) 1 gm in 100 mls @ 300 mls/hr IVPB Q30M [facility] Stop: 01/07/18 08:49 Potassium Chloride (Potassium Chloride 20 Meq/100 Ml) 20 meq in 100 mls @ 50 mls/hr IVPB ONCE ONE Stop: 01/07/18 09:49 Insulin Human Regular (Novolin R) 0 unit SC ACHS [facility] PRN Reason: Protocol Midodrine (Proamatine) 2.5 mg PO TID [facility] Last Admin: 01/06/18 18:00 Dose: Not Given Pantoprazole Sodium (Protonix Inj) 40 mg IVP Q12H [facility] Last Admin: 01/06/18 21:37 Dose: 40 mg Propranolol HCl (Inderal) 5 mg PO TID [facility] Last Admin: 01/06/18 18:00 Dose: Not Given - Labs Labs: 01/07/18 06:30 01/07/18 06:30 PT 26.8 SECONDS (9.7-12.2) H D 01/07/18 06:30 INR 2.4 D 01/07/18 06:30 APTT 32 SECONDS (21-34) 01/04/18 12:29 - Constitutional Appears: Non-toxic, No Acute Distress - Eye Exam Eye Exam: Normal appearance. absent: Scleral icterus - ENT Exam ENT Exam: Mucous Membranes Moist - Respiratory Exam Respiratory Exam: Clear to Ausculation Bilateral. absent: Respiratory Distress - Cardiovascular Exam Cardiovascular Exam: RRR, +S1, +S2 - GI/Abdominal Exam GI & Abdominal Exam: Distended, Tenderness - Extremities Exam Additional comments: mild proximal leg edema; - Neurological Exam Neurological Exam: Alert, Awake - Psychiatric Exam Psychiatric exam: absent: Agitated - Skin Skin Exam: Warm. absent: Cyanosis Assessment and Plan (1) Acute kidney injury Assessment & Plan: Improved UO overnight after volume expansion; serum creatinine slightly improved ; continuing to get volume repletion today with IV albumin; getting additional 50 g IV albumin after large volume paracentesis to prevent intravascular volume depletion; -avoid nephrotoxic agents; -continue IV albumin 25% q6h x 4 more doses; -will repeat urine lytes thereafter; Status: Acute (2) Hypotension Assessment & Plan: Mildly worsened after large volume paracentesis; see above regarding IV albumin; Status: Acute (3) Liver cirrhosis Status: Chronic (4) Hyponatremia Assessment & Plan: With intravascular volume depletion; relatively mild; continue above measures; avoid hypotonic fluids for meds; Status: Acute
[2018-01-07] MEDS: LIPASE/PROTEASE/AMYLASE 21,000 U ECC PO SCH ×3 (08:05→18:11)
[2018-01-07] MEDS ORDERED: Albumin Human 25% (12.5 gm/50 ml) IV SCH (08:15)
[2018-01-07] MEDS: Magnesium Sulfate 1 gm in D5W 1 GM/100 ML BAG IVPB SCH ×2 (08:17→09:04)
[2018-01-07] MEDS: cefTRIAXone IV 1 gm in Dextros 50 ML IVPB SCH (09:12)
[2018-01-07] MEDS: Propranolol 5 mg Tab PO SCH (10:27)
--- NOTE | 2018-01-07 10:28 | CP.PCM.PN ---
<Saud Muse - Last Filed: 01/07/18 10:30> Subjective - Date & Time of Evaluation Date of Evaluation: 01/07/18 Time of Evaluation: 09:30 - Subjective Subjective: PGY5 GI Fellow Progress Note Patient seen and examined bedside this morning. The patient states that he is feeling better today s/p 7L paracentesis yesterday. No events overnight. 12 system ROS performed and negative except where stated. Objective - Vital Signs/Intake and Output Vital Signs (last 24 hours): Temp Pulse Resp BP Pulse Ox 97.9 F 87 12 100/66 100 01/06/18 16:00 01/07/18 07:55 01/07/18 07:55 01/07/18 07:55 01/07/18 07:55 Intake and Output: 01/07/18 01/07/18 06:59 18:59 Intake Total 1750 300 Output Total 7300 Balance -5550 300 - Medications Medications: Current Medications Albumin Human (Albumin Human 25% (12.5 Gm/50 Ml)) 12.5 gm IV Q6H [facility] Stop: 01/08/18 02:16 Last Admin: 01/07/18 09:03 Dose: 12.5 gm Dextrose (Dextrose 50% Inj) 0 ml IV STAT PRN; Protocol PRN Reason: Hypoglycemia Protocol Dextrose (Glutose 15) 0 gm PO ONCE PRN; Protocol PRN Reason: Hypoglycemia Protocol Folic Acid (Folic Acid) 1 mg PO DAILY [facility] Glucagon (Glucagen Diagnostic Kit) 0 mg IM STAT PRN; Protocol PRN Reason: Hypoglycemia Protocol Dextrose (Dextrose 5% In Water 1000 Ml) 1,000 mls @ 0 mls/hr IV .Q0M PRN; Protocol; Per Protocol PRN Reason: Hypoglycemia Protocol Ceftriaxone Sodium (Rocephin Iv 1 Gm Duplex) 50 mls @ 100 mls/hr IVPB DAILY [facility] PRN Reason: Protocol Last Admin: 01/07/18 09:12 Dose: 100 mls/hr Insulin Human Regular (Novolin R) 0 unit SC ACHS [facility] PRN Reason: Protocol Last Admin: 01/07/18 08:04 Dose: 1 unit Midodrine (Proamatine) 2.5 mg PO TID [facility] Last Admin: 01/07/18 09:11 Dose: 2.5 mg Multivitamins/Vitamin C (Multi-Delyn Liquid) 5 ml PO DAILY [facility] Pantoprazole Sodium (Protonix Inj) 40 mg IVP Q12H [facility] Last Admin: 01/07/18 09:11 Dose: 40 mg Spironolactone (Aldactone) 50 mg PO DAILY [facility] Thiamine HCl (Vitamin B1 Tab) 100 mg PO DAILY [facility] - Labs Labs: 01/07/18 06:30 01/07/18 06:30 PT 26.8 SECONDS (9.7-12.2) H D 01/07/18 06:30 INR 2.4 D 01/07/18 06:30 APTT 32 SECONDS (21-34) 01/04/18 12:29 - Constitutional Appears: No Acute Distress, Cachectic, Chronically Ill - Eye Exam Eye Exam: EOMI, PERRL, Scleral icterus - ENT Exam ENT Exam: Mucous Membranes Dry - Respiratory Exam Respiratory Exam: Clear to Ausculation Bilateral. absent: Rales, Rhonchi, Wheezes - Cardiovascular Exam Cardiovascular Exam: REGULAR RHYTHM, RRR, +S1, +S2 - GI/Abdominal Exam GI & Abdominal Exam: Distended, Soft, Normal Bowel Sounds. absent: Firm, Guarding, Rigid, Tenderness, Mass, Organomegaly - Extremities Exam Extremities Exam: Normal Inspection. absent: Pedal Edema - Neurological Exam Neurological Exam: Alert, Awake, Oriented x3 - Psychiatric Exam Psychiatric exam: Normal Affect, Normal Mood - Skin Skin Exam: Dry, Warm Assessment and Plan - Assessment and Plan (Free Text) Assessment: Pt is a 52yo male with PMHx significant for decompensated cirrhosis c/b recurrent ascites, hepatic encephalopathy, also with chronic pancreatitis and insufficiency, anemia of chronic illness who was admitted for altered mental stutus and abdominal pain. Found to be profoundly anemia on admission. -Acute anemia -Decompensated EtOH cirrhosis -PUD - gastric ulcer -Esophagitis -Acute alcoholic hepatitis -Ascites 2/2 above -Hepatic encephalopathy resolved -SHUN R/O HRS Plan: -No evidence of overt GI bleeding -Transfuse as necessary but goal HGB in cirrhosis ~8 given portal HTN -S/P 7L paracentesis - albumin being replaced -Concern for HRS given presentation and evaluation or urine electrolytes - on Midodrine and receiving albumin IV - consider Albumin 25g IV Q8H for 2-3 days to evaluate response -Diuretics held given kidney function, modestly improved today -No evidence of SBP on cell count -MDF >32 - consider addition of prednisolone therapy for acute EtOH hepatitis -Stressed importance of EtOH cessation -On PPI therapy for PUD/Esophagitis - avoid fdc use given increased risk for infection in cirrhotics <Frantz Guerrero - Last Filed: 01/07/18 11:02> Objective - Vital Signs/Intake and Output Vital Signs (last 24 hours): Temp Pulse Resp BP Pulse Ox 97.9 F 87 12 100/66 100 01/06/18 16:00 01/07/18 07:55 01/07/18 07:55 01/07/18 07:55 01/07/18 07:55 Intake and Output: 01/07/18 01/07/18 06:59 18:59 Intake Total 1750 300 Output Total 7300 Balance -5550 300 - Medications Medications: Current Medications Albumin Human (Albumin Human 25% (12.5 Gm/50 Ml)) 12.5 gm IV Q6H [facility] Stop: 01/08/18 02:16 Last Admin: 01/07/18 09:03 Dose: 12.5 gm Dextrose (Dextrose 50% Inj) 0 ml IV STAT PRN; Protocol PRN Reason: Hypoglycemia Protocol Dextrose (Glutose 15) 0 gm PO ONCE PRN; Protocol PRN Reason: Hypoglycemia Protocol Folic Acid (Folic Acid) 1 mg PO DAILY [facility] Last Admin: 01/07/18 10:43 Dose: 1 mg Glucagon (Glucagen Diagnostic Kit) 0 mg IM STAT PRN; Protocol PRN Reason: Hypoglycemia Protocol Dextrose (Dextrose 5% In Water 1000 Ml) 1,000 mls @ 0 mls/hr IV .Q0M PRN; Protocol; Per Protocol PRN Reason: Hypoglycemia Protocol Ceftriaxone Sodium (Rocephin Iv 1 Gm Duplex) 50 mls @ 100 mls/hr IVPB DAILY [facility] PRN Reason: Protocol Last Admin: 01/07/18 09:12 Dose: 100 mls/hr Insulin Human Regular (Novolin R) 0 unit SC ACHS [facility] PRN Reason: Protocol Last Admin: 01/07/18 08:04 Dose: 1 unit Midodrine (Proamatine) 2.5 mg PO TID [facility] Last Admin: 01/07/18 09:11 Dose: 2.5 mg Multivitamins/Vitamin C (Multi-Delyn Liquid) 5 ml PO DAILY [facility] Last Admin: 01/07/18 10:43 Dose: 5 ml Pantoprazole Sodium (Protonix Inj) 40 mg IVP Q12H [facility] Last Admin: 01/07/18 09:11 Dose: 40 mg Spironolactone (Aldactone) 50 mg PO DAILY [facility] Last Admin: 01/07/18 10:44 Dose: 50 mg Thiamine HCl (Vitamin B1 Tab) 100 mg PO DAILY [facility] Last Admin: 01/07/18 10:43 Dose: 100 mg - Labs Labs: 01/07/18 06:30 01/07/18 06:30 PT 26.8 SECONDS (9.7-12.2) H D 01/07/18 06:30 INR 2.4 D 01/07/18 06:30 APTT 32 SECONDS (21-34) 01/04/18 12:29 Attending/Attestation - Attestation I have personally seen and examined this patient.: Yes I have fully participated in the care of the patient.: Yes I have reviewed all pertinent clinical information, including history, physical exam and plan: Yes Notes (Text): 01/07/18 11:00 52 year old male with h/o decompensated cirrhosis c/b ascites a/w anemia s/p EGD showing gastric ulcer, esophagitis, gastritis. Recommend PPI. Ok to DC octreotide since no significant varices. S/p paracentesis without evidence of SBP. Continue supportive measures. Monitor for bleeding. Await path from EGD.
[2018-01-07] MEDS: Multiple Vitamins Oral Solution PO SCH (10:43)
--- NOTE | 2018-01-07 11:10 | PCM.PROC ---
Procedures Attestation:: I certify that I have explained the specified Operation(s) or Procedure(s), risks, benefits and reasonable alternatives to the Patient and/or other person responsible. The opportunity was given to ask questions and all questions answered - Paracentesis Consent Obtained: verbal consent, written consent Time Out Performed: Yes Indication: Ascites, possible spontaneous bacterial peritonitis Procedure: diagnostic paracentesis Location: RLQ Local Anesthetic Used: lidocaine 1%
--- NOTE | 2018-01-07 11:15 | CP.CCUPN ---
<Ghazala Diane - Last Filed: 01/07/18 11:18> CCU Subjective - Physician Review Subjective (Free Text): Patient seen and examined at bedside. S/P EGD and Paracentesis with 7L fluid removal with appropriate albumin replacement. CCU Objective - Vital Signs / Intake & Output Vital Signs (Last 4 hours): Vital Signs Pulse Resp BP Pulse Ox 01/07/18 07:55 87 12 100/66 100 Intake and Output (Last 8hrs): Intake & Output 01/06/18 01/07/18 01/07/18 22:59 06:59 14:59 Intake Total 1100 1050 300 Output Total 7000 300 Balance -5900 750 300 Weight 103 lb 3.2 oz Intake: Intake, IV Amount 1000 800 250 Left Forearm 200 Right PICC 1 400 400 150 Right PICC 2 400 400 100 Oral 100 250 50 Output: Urine 0 300 Urine, Voided 0 300 Stool 0 0 Other 7000 Other: # Bowel Movements 1 - Physical Exam Head: Positive for: Atraumatic, Normocephalic Pupils: Positive for: PERRL Extroacular Muscles: Positive for: EOMI Conjunctiva: Positive for: Icteric Mouth: Positive for: Dry Respiratory/Chest: Positive for: Decreased Breath Sounds Cardiovascular: Positive for: Tachycardic Abdomen: Positive for: Tenderness, Distention, Normal Bowel Sounds, Other ( fluid wave shift ). Negative for: Mass/Organomegaly Upper Extremity: Positive for: Normal Inspection, NORMAL PULSES, Neurovascularly Intact, Capillary Refill < 2s. Negative for: Edema Lower Extremity: Positive for: Normal Inspection, NORMAL PULSES, Neurovascularly Intact, Capillary Refill < 2 s Neurological: Positive for: GCS=15, CN II-XII Intact Skin: Positive for: Warm, Dry Psychiatric: Positive for: Alert - Medications Active Medications: Active Medications Generic Name Dose Route Start Last Admin Trade Name Freq PRN Reason Stop Dose Admin Albumin Human 12.5 gm 01/07/18 08:15 01/07/18 09:03 Albumin Human 25% (12.5 Gm/50 Ml) IV 01/08/18 02:16 12.5 gm Q6H SABINA Administration Dextrose 0 ml 01/04/18 19:08 Dextrose 50% Inj IV STAT PRN Hypoglycemia Protocol Protocol Dextrose 0 gm 01/04/18 19:08 Glutose 15 PO ONCE PRN Hypoglycemia Protocol Protocol Folic Acid 1 mg 01/07/18 10:30 01/07/18 10:43 Folic Acid PO 1 mg DAILY SABINA Administration Glucagon 0 mg 01/04/18 18:57 Glucagen Diagnostic Kit IM STAT PRN Hypoglycemia Protocol Protocol Dextrose 1,000 mls @ 0 mls/hr 01/04/18 19:06 Dextrose 5% In Water 1000 Ml IV .Q0M PRN Hypoglycemia Protocol Protocol Per Protocol Insulin Human Regular 0 unit 01/07/18 07:45 01/07/18 08:04 Novolin R SC 1 unit ACHS SABINA Administration Protocol Midodrine 2.5 mg 01/06/18 10:00 01/07/18 09:11 Proamatine PO 2.5 mg TID SABINA Administration Multivitamins/Vitamin C 5 ml 01/07/18 10:30 01/07/18 10:43 Multi-Delyn Liquid PO 5 ml DAILY SABINA Administration Pantoprazole Sodium 40 mg 01/06/18 22:00 01/07/18 09:11 Protonix Inj IVP 40 mg Q12H SABINA Administration Spironolactone 50 mg 01/07/18 10:45 01/07/18 10:44 Aldactone PO 50 mg DAILY SABINA Administration Thiamine HCl 100 mg 01/07/18 10:30 01/07/18 10:43 Vitamin B1 Tab PO 100 mg DAILY SABINA Administration - Patient Studies Lab Studies: Microbiology Studies 01/05/18 Unknown Gram Stain - Final Abdominal Fluid 01/04/18 18:10 Blood Culture - Preliminary Blood NO GROWTH AFTER 48 HOURS 01/04/18 18:10 Blood Culture - Preliminary Blood NO GROWTH AFTER 48 HOURS Lab Studies 01/07/18 01/07/18 01/07/18 Range/Units 07:37 06:30 06:30 WBC (4.8-10.8) K/uL RBC (4.40-5.90) Mil/uL Hgb (12.0-18.0) g/dL Hct (35.0-51.0) % MCV (80.0-94.0) fL MCH (27.0-31.0) pg MCHC (33.0-37.0) g/dL RDW (11.5-14.5) % Plt Count (130-400) K/uL MPV (7.2-11.7) fL Neut % (Auto) (50.0-75.0) % Lymph % (Auto) (20.0-40.0) % [place] % (Auto) (0.0-10.0) % Eos % (Auto) (0.0-4.0) % Baso % (Auto) (0.0-2.0) % Neut # (Auto) (1.8-7.0) K/uL Lymph # (Auto) (1.0-4.3) K/uL [place] # (Auto) (0.0-0.8) K/uL Eos # (Auto) (0.0-0.7) K/uL Baso # (Auto) (0.0-0.2) K/uL PT 26.8 H D (9.7-12.2) SECONDS INR 2.4 D Sodium 136 (132-148) mmol/L Potassium 3.6 (3.6-5.2) mmol/L Chloride 100 (98-107) mmol/L Carbon Dioxide 20 L (22-30) mmol/L Anion Gap 20 (10-20) BUN 28 H (9-20) mg/dL Creatinine 1.8 H (0.8-1.5) mg/dL Est GFR ( Amer) 48 Est GFR (Non-Af Amer) 40 POC Glucose (mg/dL) 181 H (65-110) mg/dL Random Glucose 153 H (75-110) mg/dL Calcium 6.9 L (8.6-10.4) mg/dl Phosphorus 3.7 (2.5-4.5) mg/dL Magnesium 1.6 (1.6-2.3) mg/dL Total Bilirubin 5.8 H (0.2-1.3) mg/dL AST 61 H D (17-59) U/L ALT 30 (21-72) U/L Alkaline Phosphatase 61 (38-126) U/L Total Creatine Kinase (55-170) U/L Total Protein 5.1 L (6.3-8.3) g/dL Albumin 2.6 L (3.5-5.0) g/dL Globulin 2.5 (2.2-3.9) gm/dL Albumin/Globulin Ratio 1.0 (1.0-2.1) Triglycerides (0-149) mg/dL Urine Chloride (32-290) mmol/L Fluid Source Fluid Appearance (CLEAR) Fluid WBC (0.0-300.0) /mm3 Fluid RBC (0.0-0.0) /mm3 Fluid Tot Cell Count (0-0) Fluid Neutrophils (0-0) % Fluid Lymphocytes (0-0) % Fld Monocyte/Macrophag (0-0) % Fluid Comment 01/07/18 01/07/18 01/06/18 Range/Units 06:30 05:25 23:33 WBC 7.4 (4.8-10.8) K/uL RBC 2.56 L (4.40-5.90) Mil/uL Hgb 7.3 L (12.0-18.0) g/dL Hct 20.7 L (35.0-51.0) % MCV 80.8 (80.0-94.0) fL MCH 28.6 (27.0-31.0) pg MCHC 35.4 (33.0-37.0) g/dL RDW 18.1 H (11.5-14.5) % Plt Count 62 L D (130-400) K/uL MPV 8.7 (7.2-11.7) fL Neut % (Auto) 82.2 H (50.0-75.0) % Lymph % (Auto) 11.1 L (20.0-40.0) % [place] % (Auto) 6.2 (0.0-10.0) % Eos % (Auto) 0.3 (0.0-4.0) % Baso % (Auto) 0.2 (0.0-2.0) % Neut # (Auto) 6.1 (1.8-7.0) K/uL Lymph # (Auto) 0.8 L (1.0-4.3) K/uL [place] # (Auto) 0.5 (0.0-0.8) K/uL Eos # (Auto) 0.0 (0.0-0.7) K/uL Baso # (Auto) 0.0 (0.0-0.2) K/uL PT (9.7-12.2) SECONDS INR Sodium (132-148) mmol/L Potassium (3.6-5.2) mmol/L Chloride (98-107) mmol/L Carbon Dioxide (22-30) mmol/L Anion Gap (10-20) BUN (9-20) mg/dL Creatinine (0.8-1.5) mg/dL Est GFR ( Amer) Est GFR (Non-Af Amer) POC Glucose (mg/dL) 168 H 139 H (65-110) mg/dL Random Glucose (75-110) mg/dL Calcium (8.6-10.4) mg/dl Phosphorus (2.5-4.5) mg/dL Magnesium (1.6-2.3) mg/dL Total Bilirubin (0.2-1.3) mg/dL AST (17-59) U/L ALT (21-72) U/L Alkaline Phosphatase (38-126) U/L Total Creatine Kinase (55-170) U/L Total Protein (6.3-8.3) g/dL Albumin (3.5-5.0) g/dL Globulin (2.2-3.9) gm/dL Albumin/Globulin Ratio (1.0-2.1) Triglycerides (0-149) mg/dL Urine Chloride (32-290) mmol/L Fluid Source Fluid Appearance (CLEAR) Fluid WBC (0.0-300.0) /mm3 Fluid RBC (0.0-0.0) /mm3 Fluid Tot Cell Count (0-0) Fluid Neutrophils (0-0) % Fluid Lymphocytes (0-0) % Fld Monocyte/Macrophag (0-0) % Fluid Comment 01/06/18 01/06/18 01/06/18 Range/Units 19:38 17:30 12:42 WBC (4.8-10.8) K/uL RBC (4.40-5.90) Mil/uL Hgb (12.0-18.0) g/dL Hct (35.0-51.0) % MCV (80.0-94.0) fL MCH (27.0-31.0) pg MCHC (33.0-37.0) g/dL RDW (11.5-14.5) % Plt Count (130-400) K/uL MPV (7.2-11.7) fL Neut % (Auto) (50.0-75.0) % Lymph % (Auto) (20.0-40.0) % [place] % (Auto) (0.0-10.0) % Eos % (Auto) (0.0-4.0) % Baso % (Auto) (0.0-2.0) % Neut # (Auto) (1.8-7.0) K/uL Lymph # (Auto) (1.0-4.3) K/uL [place] # (Auto) (0.0-0.8) K/uL Eos # (Auto) (0.0-0.7) K/uL Baso # (Auto) (0.0-0.2) K/uL PT (9.7-12.2) SECONDS INR Sodium (132-148) mmol/L Potassium (3.6-5.2) mmol/L Chloride (98-107) mmol/L Carbon Dioxide (22-30) mmol/L Anion Gap (10-20) BUN (9-20) mg/dL Creatinine (0.8-1.5) mg/dL Est GFR ( Amer) Est GFR (Non-Af Amer) POC Glucose (mg/dL) 153 H 189 H (65-110) mg/dL Random Glucose (75-110) mg/dL Calcium (8.6-10.4) mg/dl Phosphorus (2.5-4.5) mg/dL Magnesium (1.6-2.3) mg/dL Total Bilirubin (0.2-1.3) mg/dL AST (17-59) U/L ALT (21-72) U/L Alkaline Phosphatase (38-126) U/L Total Creatine Kinase (55-170) U/L Total Protein (6.3-8.3) g/dL Albumin (3.5-5.0) g/dL Globulin (2.2-3.9) gm/dL Albumin/Globulin Ratio (1.0-2.1) Triglycerides (0-149) mg/dL Urine Chloride (32-290) mmol/L Fluid Source Peritoneal/ascites Fluid Appearance Sl cloudy (CLEAR) Fluid WBC 116.0 (0.0-300.0) /mm3 Fluid RBC 3076.0 H (0.0-0.0) /mm3 Fluid Tot Cell Count 100 H (0-0) Fluid Neutrophils 39.0 H (0-0) % Fluid Lymphocytes 57.0 H (0-0) % Fld Monocyte/Macrophag 3 H (0-0) % Fluid Comment 01/06/18 01/05/18 Range/Units 06:40 15:16 WBC (4.8-10.8) K/uL RBC (4.40-5.90) Mil/uL Hgb (12.0-18.0) g/dL Hct (35.0-51.0) % MCV (80.0-94.0) fL MCH (27.0-31.0) pg MCHC (33.0-37.0) g/dL RDW (11.5-14.5) % Plt Count (130-400) K/uL MPV (7.2-11.7) fL Neut % (Auto) (50.0-75.0) % Lymph % (Auto) (20.0-40.0) % [place] % (Auto) (0.0-10.0) % Eos % (Auto) (0.0-4.0) % Baso % (Auto) (0.0-2.0) % Neut # (Auto) (1.8-7.0) K/uL Lymph # (Auto) (1.0-4.3) K/uL [place] # (Auto) (0.0-0.8) K/uL Eos # (Auto) (0.0-0.7) K/uL Baso # (Auto) (0.0-0.2) K/uL PT (9.7-12.2) SECONDS INR Sodium 131 L (132-148) mmol/L Potassium 4.0 (3.6-5.2) mmol/L Chloride 95 L (98-107) mmol/L Carbon Dioxide 21 L (22-30) mmol/L Anion Gap 19 (10-20) BUN 39 H (9-20) mg/dL Creatinine 2.1 H (0.8-1.5) mg/dL Est GFR ( Amer) 40 Est GFR (Non-Af Amer) 33 POC Glucose (mg/dL) (65-110) mg/dL Random Glucose 193 H (75-110) mg/dL Calcium 6.8 L (8.6-10.4) mg/dl Phosphorus 1.6 L (2.5-4.5) mg/dL Magnesium 2.1 (1.6-2.3) mg/dL Total Bilirubin 7.3 H (0.2-1.3) mg/dL AST 85 H D (17-59) U/L ALT 26 (21-72) U/L Alkaline Phosphatase 101 (38-126) U/L Total Creatine Kinase 38 L (55-170) U/L Total Protein 6.8 (6.3-8.3) g/dL Albumin 3.0 L (3.5-5.0) g/dL Globulin 3.7 (2.2-3.9) gm/dL Albumin/Globulin Ratio 0.8 L (1.0-2.1) Triglycerides 74 D (0-149) mg/dL Urine Chloride 20 L (32-290) mmol/L Fluid Source Fluid Appearance (CLEAR) Fluid WBC (0.0-300.0) /mm3 Fluid RBC (0.0-0.0) /mm3 Fluid Tot Cell Count (0-0) Fluid Neutrophils (0-0) % Fluid Lymphocytes (0-0) % Fld Monocyte/Macrophag (0-0) % Fluid Comment Laboratory Results - last 24 hr 01/05/18 01/06/18 01/06/18 15:16 06:40 12:42 WBC RBC Hgb Hct MCV MCH MCHC RDW Plt Count MPV Neut % (Auto) Lymph % (Auto) [place] % (Auto) Eos % (Auto) Baso % (Auto) Neut # (Auto) Lymph # (Auto) [place] # (Auto) Eos # (Auto) Baso # (Auto) PT INR Sodium 131 L Potassium 4.0 Chloride 95 L Carbon Dioxide 21 L Anion Gap 19 BUN 39 H Creatinine 2.1 H Est GFR ( Amer) 40 Est GFR (Non-Af Amer) 33 POC Glucose (mg/dL) 189 H Random Glucose 193 H Calcium 6.8 L Phosphorus 1.6 L Magnesium 2.1 Total Bilirubin 7.3 H AST 85 H D ALT 26 Alkaline Phosphatase 101 Total Creatine Kinase 38 L Total Protein 6.8 Albumin 3.0 L Globulin 3.7 Albumin/Globulin Ratio 0.8 L Triglycerides 74 D Urine Chloride 20 L Fluid Source Fluid Appearance Fluid WBC Fluid RBC Fluid Tot Cell Count Fluid Neutrophils Fluid Lymphocytes Fld Monocyte/Macrophag Fluid Comment 01/06/18 01/06/18 01/06/18 17:30 19:38 23:33 WBC RBC Hgb Hct MCV MCH MCHC RDW Plt Count MPV Neut % (Auto) Lymph % (Auto) [place] % (Auto) Eos % (Auto) Baso % (Auto) Neut # (Auto) Lymph # (Auto) [place] # (Auto) Eos # (Auto) Baso # (Auto) PT INR Sodium Potassium Chloride Carbon Dioxide Anion Gap BUN Creatinine Est GFR ( Amer) Est GFR (Non-Af Amer) POC Glucose (mg/dL) 153 H 139 H Random Glucose Calcium Phosphorus Magnesium Total Bilirubin AST ALT Alkaline Phosphatase Total Creatine Kinase Total Protein Albumin Globulin Albumin/Globulin Ratio Triglycerides Urine Chloride Fluid Source Peritoneal/ascites Fluid Appearance Sl cloudy Fluid WBC 116.0 Fluid RBC 3076.0 H Fluid Tot Cell Count 100 H Fluid Neutrophils 39.0 H Fluid Lymphocytes 57.0 H Fld Monocyte/Macrophag 3 H Fluid Comment 01/07/18 01/07/18 01/07/18 05:25 06:30 06:30 WBC 7.4 RBC 2.56 L Hgb 7.3 L Hct 20.7 L MCV 80.8 MCH 28.6 MCHC 35.4 RDW 18.1 H Plt Count 62 L D MPV 8.7 Neut % (Auto) 82.2 H Lymph % (Auto) 11.1 L [place] % (Auto) 6.2 Eos % (Auto) 0.3 Baso % (Auto) 0.2 Neut # (Auto) 6.1 Lymph # (Auto) 0.8 L [place] # (Auto) 0.5 Eos # (Auto) 0.0 Baso # (Auto) 0.0 PT INR Sodium 136 Potassium 3.6 Chloride 100 Carbon Dioxide 20 L Anion Gap 20 BUN 28 H Creatinine 1.8 H Est GFR ( Amer) 48 Est GFR (Non-Af Amer) 40 POC Glucose (mg/dL) 168 H Random Glucose 153 H Calcium 6.9 L Phosphorus 3.7 Magnesium 1.6 Total Bilirubin 5.8 H AST 61 H D ALT 30 Alkaline Phosphatase 61 Total Creatine Kinase Total Protein 5.1 L Albumin 2.6 L Globulin 2.5 Albumin/Globulin Ratio 1.0 Triglycerides Urine Chloride Fluid Source Fluid Appearance Fluid WBC Fluid RBC Fluid Tot Cell Count Fluid Neutrophils Fluid Lymphocytes Fld Monocyte/Macrophag Fluid Comment 01/07/18 01/07/18 06:30 07:37 WBC RBC Hgb Hct MCV MCH MCHC RDW Plt Count MPV Neut % (Auto) Lymph % (Auto) [place] % (Auto) Eos % (Auto) Baso % (Auto) Neut # (Auto) Lymph # (Auto) [place] # (Auto) Eos # (Auto) Baso # (Auto) PT 26.8 H D INR 2.4 D Sodium Potassium Chloride Carbon Dioxide Anion Gap BUN Creatinine Est GFR ( Amer) Est GFR (Non-Af Amer) POC Glucose (mg/dL) 181 H Random Glucose Calcium Phosphorus Magnesium Total Bilirubin AST ALT Alkaline Phosphatase Total Creatine Kinase Total Protein Albumin Globulin Albumin/Globulin Ratio Triglycerides Urine Chloride Fluid Source Fluid Appearance Fluid WBC Fluid RBC Fluid Tot Cell Count Fluid Neutrophils Fluid Lymphocytes Fld Monocyte/Macrophag Fluid Comment Fingerstick Blood Sugar Results: 181 Critical Care Progress Note - Nutrition Nutrition: Nutrition Category Date Time Status Altered GI/Hepatic Diet [DIET] Diets 01/07/18 Lunch Active Assessment/Plan - Assessment and Plan (Free Text) Assessment: This is a 52 year old male with PMHx of Liver Cirrhosis with recurrent ascites, hepatic encephalopathy, ?chronic pancreatitis, with pancreatic insufficiency, Anemia of Chronic Disease admitted for SEVERE Anemia, Hypokalemi, ARF, AMS likely 2/2 Hepatic Encephalopathy, ? GIB. 01/06: S/P paracentesis with 7L fluid removal, ruled out SBP, and appropriate albumin replacement. 01/06: S/P EGD Plan: Neuro: GCS 15 A: AMS 2/2 Hepatic Encephalopathy - resolved GI: A: Suspected GIB?? --> Gastric Ulcer, Esophagitis, Gastritis - Hemoglobin 2.9 on admission, no hx of AC use - Prior EGD 07/2017 - no varices noted - Stool Occult - negative - PPI Drip, Octreotide - S/P EGD - gastric ulcer, esophagitis, gastritis, no avert bleeding A: Decompensated Liver Cirrhosis - MELD score on admission 32, with Mortality of 53% - Transfuse as necessary but goal HGB in cirrhosis ~8 given portal HTN - CT Chest, abdomen, pelvis: Increased number of hepatic lesions lung poorly characterized in the absence of intravenous contrast.Extensive abdominal ascites and small pleural effusions. Nonspecific hyperdense area layering dependently within the ascites on the left, not present on previous CT scan dated 07/31/2017.Nonspecific thickening of the colon which may be reactive in the setting of ascites or may represent colitis. Mild left hydroureteronephrosis without evidence of obstructive calculus. - Abdominal US: ascites A: Ascites - Noted on CT abdomen, pelvis and abdominal us - Paracentesis ordered with cytology to rule out SBP - SBP RULED OUT - Started on Rocephin 1 gram daily for prophylaxis - this was discontinued A: Hepatic Encephalopathy - Ammonia <20 on admission, - Refrain from Lactulose, Xifaximin - until electrolytes normalize A: Possible Chronic Pancreatitis, Pancreatic insufficiency - Restarted Pancreaze 21K PO TIDCC Previous admission 07/2017: - Per Dr. South, he suspects pancreatic insufficiency as possible cause due to low stool pancreatic elastase and ordered an MRCP which was unable to be obtained due to patient restlessness - Dr. South consulted Dr. Guerrero for evaluation of possible chronic pancreatitis and possible EUS work up * Per Dr. Guerrero, pursue EUS as an outpatient for definitive diagnosis of chronic pancreatitis * Pancreatic enzymes were started with meals (Cholestyramine Resin (Questran) 4 gm PO TIDPC [facility]) and Aldactone increased to 50 mg PO BID by GI team * [place] [id number] units TID with meals Previous Admission 07/2017 - Endoscopy (07/28): small hiatal hernia, patchy mild inflammation in gastric antrum biopsies, scalloped mucosa found in duodenum, suspicious for celiac disease- biopsied; Biopsy: Benign - Colonoscopy (07/28): internal hemorrhoids, mucosal nodule in the sigmoid colon , in transverse colon and in the ascending colon- biopsied; Biopsy; benign Renal: A: Suspected Hepatorenal Syndrome - On midodrine and Albumin A: ARF - Normal Baseline - Continue with IVF - Possible Hepatorenal syndrome? A: Electrolyte imbalance - Hypokalemia 1.4 on admission - Aggressively replenishing all electrolytes Heme/ Onc: A: Anemia of chronic disease - Chronic likely 2/2 bone supression from ETOH - Concern for GIB with recent report of dark, tarry stools - Baseline hemoglobin 8s - 2.9 on admission - Received total 3 units PRBCs, 2 FFP - Hemoglobin now stable, no active bleeding - Transfuse as necessary but goal HGB in cirrhosis ~8 given portal HTN - Continue to monitor A: Coagulopathy - INR - 2.3 admission - S/P Vitamin K x 15 mg total - FFP x 2 - Continue to monitor Psych: A: ETOH Abuse - Will receive MV, thiamine, folic IV then PO - Alcohol level 25 on admission - Ativan PRN Prophylaxis - Protonix Drip - SCDs, VTE c/i - As per previous admission: DNR/DNI after palliative care discussion 07/2017. POLST form was filled out during that admission. - PT eval, speech, and swallow eval - Lines: R PICC Disposition: Patient is transferred to Med/Surg. Ghazala Arevalo DO, PGY-1 <Allen Peng - Last Filed: 01/07/18 14:23> CCU Objective - Vital Signs / Intake & Output Vital Signs (Last 4 hours): Vital Signs Pulse Resp BP Pulse Ox 01/07/18 12:56 91 H 15 105/75 98 01/07/18 12:00 98 H 01/07/18 11:22 85 13 106/69 100 Intake and Output (Last 8hrs): Intake & Output 01/06/18 01/07/18 01/07/18 22:59 06:59 14:59 Intake Total 1100 1050 850 Output Total 7000 300 100 Balance -5900 750 750 Weight 103 lb 3.2 oz Intake: Intake, IV Amount 1000 800 550 Left Forearm 200 Left Hand 50 Right PICC 1 400 400 300 Right PICC 2 400 400 200 Oral 100 250 300 Output: Urine 0 300 100 Urine, Voided 0 300 100 Stool 0 0 Other 7000 Other: # Bowel Movements 1 1 - Medications Active Medications: Active Medications Generic Name Dose Route Start Last Admin Trade Name Freq PRN Reason Stop Dose Admin Albumin Human 12.5 gm 01/07/18 15:00 Albumin Human 25% (12.5 Gm/50 Ml) IV 01/09/18 15:01 Q8H SABINA Dextrose 0 ml 01/04/18 19:08 Dextrose 50% Inj IV STAT PRN Hypoglycemia Protocol Protocol Dextrose 0 gm 01/04/18 19:08 Glutose 15 PO ONCE PRN Hypoglycemia Protocol Protocol Folic Acid 1 mg 01/07/18 10:30 01/07/18 10:43 Folic Acid PO 1 mg DAILY SABINA Administration Glucagon 0 mg 01/04/18 18:57 Glucagen Diagnostic Kit IM STAT PRN Hypoglycemia Protocol Protocol Dextrose 1,000 mls @ 0 mls/hr 01/04/18 19:06 Dextrose 5% In Water 1000 Ml IV .Q0M PRN Hypoglycemia Protocol Protocol Per Protocol Insulin Human Regular 0 unit 01/07/18 16:30 Novolin R SC ACHS [facility] Protocol Midodrine 2.5 mg 01/06/18 10:00 01/07/18 09:11 Proamatine PO 2.5 mg TID SABINA Administration Multivitamins/Vitamin C 5 ml 01/07/18 10:30 01/07/18 10:43 Multi-Delyn Liquid PO 5 ml DAILY SABINA Administration Pantoprazole Sodium 40 mg 01/07/18 18:00 Protonix Ec Tab PO BID SABINA Phytonadione 5 mg 01/08/18 10:00 Vitamin K Tab PO 01/10/18 12:31 DAILY SABINA Spironolactone 50 mg 01/07/18 10:45 01/07/18 10:44 Aldactone PO 50 mg DAILY SABINA Administration Thiamine HCl 100 mg 01/07/18 10:30 01/07/18 10:43 Vitamin B1 Tab PO 100 mg DAILY SABINA Administration - Patient Studies Lab Studies: Microbiology Studies 01/05/18 Unknown Gram Stain - Final Abdominal Fluid Body Fluid Culture - Preliminary NO GROWTH AFTER 24 HOURS 01/04/18 18:10 Blood Culture - Preliminary Blood NO GROWTH AFTER 48 HOURS 01/04/18 18:10 Blood Culture - Preliminary Blood NO GROWTH AFTER 48 HOURS Lab Studies 01/07/18 01/07/18 01/07/18 Range/Units 11:26 07:37 06:30 WBC (4.8-10.8) K/uL RBC (4.40-5.90) Mil/uL Hgb (12.0-18.0) g/dL Hct (35.0-51.0) % MCV (80.0-94.0) fL MCH (27.0-31.0) pg MCHC (33.0-37.0) g/dL RDW (11.5-14.5) % Plt Count (130-400) K/uL MPV (7.2-11.7) fL Neut % (Auto) (50.0-75.0) % Lymph % (Auto) (20.0-40.0) % [place] % (Auto) (0.0-10.0) % Eos % (Auto) (0.0-4.0) % Baso % (Auto) (0.0-2.0) % Neut # (Auto) (1.8-7.0) K/uL Lymph # (Auto) (1.0-4.3) K/uL [place] # (Auto) (0.0-0.8) K/uL Eos # (Auto) (0.0-0.7) K/uL Baso # (Auto) (0.0-0.2) K/uL PT 26.8 H D (9.7-12.2) SECONDS INR 2.4 D Sodium (132-148) mmol/L Potassium (3.6-5.2) mmol/L Chloride (98-107) mmol/L Carbon Dioxide (22-30) mmol/L Anion Gap (10-20) BUN (9-20) mg/dL Creatinine (0.8-1.5) mg/dL Est GFR ( Amer) Est GFR (Non-Af Amer) POC Glucose (mg/dL) 228 H 181 H (65-110) mg/dL Random Glucose (75-110) mg/dL Calcium (8.6-10.4) mg/dl Phosphorus (2.5-4.5) mg/dL Magnesium (1.6-2.3) mg/dL Total Bilirubin (0.2-1.3) mg/dL AST (17-59) U/L ALT (21-72) U/L Alkaline Phosphatase (38-126) U/L Total Protein (6.3-8.3) g/dL Albumin (3.5-5.0) g/dL Globulin (2.2-3.9) gm/dL Albumin/Globulin Ratio (1.0-2.1) Fluid Source Fluid Appearance (CLEAR) Fluid WBC (0.0-300.0) /mm3 Fluid RBC (0.0-0.0) /mm3 Fluid Tot Cell Count (0-0) Fluid Neutrophils (0-0) % Fluid Lymphocytes (0-0) % Fld Monocyte/Macrophag (0-0) % Fluid Comment 01/07/18 01/07/18 01/07/18 Range/Units 06:30 06:30 05:25 WBC 7.4 (4.8-10.8) K/uL RBC 2.56 L (4.40-5.90) Mil/uL Hgb 7.3 L (12.0-18.0) g/dL Hct 20.7 L (35.0-51.0) % MCV 80.8 (80.0-94.0) fL MCH 28.6 (27.0-31.0) pg MCHC 35.4 (33.0-37.0) g/dL RDW 18.1 H (11.5-14.5) % Plt Count 62 L D (130-400) K/uL MPV 8.7 (7.2-11.7) fL Neut % (Auto) 82.2 H (50.0-75.0) % Lymph % (Auto) 11.1 L (20.0-40.0) % [place] % (Auto) 6.2 (0.0-10.0) % Eos % (Auto) 0.3 (0.0-4.0) % Baso % (Auto) 0.2 (0.0-2.0) % Neut # (Auto) 6.1 (1.8-7.0) K/uL Lymph # (Auto) 0.8 L (1.0-4.3) K/uL [place] # (Auto) 0.5 (0.0-0.8) K/uL Eos # (Auto) 0.0 (0.0-0.7) K/uL Baso # (Auto) 0.0 (0.0-0.2) K/uL PT (9.7-12.2) SECONDS INR Sodium 136 (132-148) mmol/L Potassium 3.6 (3.6-5.2) mmol/L Chloride 100 (98-107) mmol/L Carbon Dioxide 20 L (22-30) mmol/L Anion Gap 20 (10-20) BUN 28 H (9-20) mg/dL Creatinine 1.8 H (0.8-1.5) mg/dL Est GFR ( Amer) 48 Est GFR (Non-Af Amer) 40 POC Glucose (mg/dL) 168 H (65-110) mg/dL Random Glucose 153 H (75-110) mg/dL Calcium 6.9 L (8.6-10.4) mg/dl Phosphorus 3.7 (2.5-4.5) mg/dL Magnesium 1.6 (1.6-2.3) mg/dL Total Bilirubin 5.8 H (0.2-1.3) mg/dL AST 61 H D (17-59) U/L ALT 30 (21-72) U/L Alkaline Phosphatase 61 (38-126) U/L Total Protein 5.1 L (6.3-8.3) g/dL Albumin 2.6 L (3.5-5.0) g/dL Globulin 2.5 (2.2-3.9) gm/dL Albumin/Globulin Ratio 1.0 (1.0-2.1) Fluid Source Fluid Appearance (CLEAR) Fluid WBC (0.0-300.0) /mm3 Fluid RBC (0.0-0.0) /mm3 Fluid Tot Cell Count (0-0) Fluid Neutrophils (0-0) % Fluid Lymphocytes (0-0) % Fld Monocyte/Macrophag (0-0) % Fluid Comment 01/06/18 01/06/18 01/06/18 Range/Units 23:33 19:38 17:30 WBC (4.8-10.8) K/uL RBC (4.40-5.90) Mil/uL Hgb (12.0-18.0) g/dL Hct (35.0-51.0) % MCV (80.0-94.0) fL MCH (27.0-31.0) pg MCHC (33.0-37.0) g/dL RDW (11.5-14.5) % Plt Count (130-400) K/uL MPV (7.2-11.7) fL Neut % (Auto) (50.0-75.0) % Lymph % (Auto) (20.0-40.0) % [place] % (Auto) (0.0-10.0) % Eos % (Auto) (0.0-4.0) % Baso % (Auto) (0.0-2.0) % Neut # (Auto) (1.8-7.0) K/uL Lymph # (Auto) (1.0-4.3) K/uL [place] # (Auto) (0.0-0.8) K/uL Eos # (Auto) (0.0-0.7) K/uL Baso # (Auto) (0.0-0.2) K/uL PT (9.7-12.2) SECONDS INR Sodium (132-148) mmol/L Potassium (3.6-5.2) mmol/L Chloride (98-107) mmol/L Carbon Dioxide (22-30) mmol/L Anion Gap (10-20) BUN (9-20) mg/dL Creatinine (0.8-1.5) mg/dL Est GFR ( Amer) Est GFR (Non-Af Amer) POC Glucose (mg/dL) 139 H 153 H (65-110) mg/dL Random Glucose (75-110) mg/dL Calcium (8.6-10.4) mg/dl Phosphorus (2.5-4.5) mg/dL Magnesium (1.6-2.3) mg/dL Total Bilirubin (0.2-1.3) mg/dL AST (17-59) U/L ALT (21-72) U/L Alkaline Phosphatase (38-126) U/L Total Protein (6.3-8.3) g/dL Albumin (3.5-5.0) g/dL Globulin (2.2-3.9) gm/dL Albumin/Globulin Ratio (1.0-2.1) Fluid Source Peritoneal/ascites Fluid Appearance Sl cloudy (CLEAR) Fluid WBC 116.0 (0.0-300.0) /mm3 Fluid RBC 3076.0 H (0.0-0.0) /mm3 Fluid Tot Cell Count 100 H (0-0) Fluid Neutrophils 39.0 H (0-0) % Fluid Lymphocytes 57.0 H (0-0) % Fld Monocyte/Macrophag 3 H (0-0) % Fluid Comment Laboratory Results - last 24 hr 01/06/18 01/06/18 01/06/18 17:30 19:38 23:33 WBC RBC Hgb Hct MCV MCH MCHC RDW Plt Count MPV Neut % (Auto) Lymph % (Auto) [place] % (Auto) Eos % (Auto) Baso % (Auto) Neut # (Auto) Lymph # (Auto) [place] # (Auto) Eos # (Auto) Baso # (Auto) PT INR Sodium Potassium Chloride Carbon Dioxide Anion Gap BUN Creatinine Est GFR ( Amer) Est GFR (Non-Af Amer) POC Glucose (mg/dL) 153 H 139 H Random Glucose Calcium Phosphorus Magnesium Total Bilirubin AST ALT Alkaline Phosphatase Total Protein Albumin Globulin Albumin/Globulin Ratio Fluid Source Peritoneal/ascites Fluid Appearance Sl cloudy Fluid WBC 116.0 Fluid RBC 3076.0 H Fluid Tot Cell Count 100 H Fluid Neutrophils 39.0 H Fluid Lymphocytes 57.0 H Fld Monocyte/Macrophag 3 H Fluid Comment 01/07/18 01/07/18 01/07/18 05:25 06:30 06:30 WBC 7.4 RBC 2.56 L Hgb 7.3 L Hct 20.7 L MCV 80.8 MCH 28.6 MCHC 35.4 RDW 18.1 H Plt Count 62 L D MPV 8.7 Neut % (Auto) 82.2 H Lymph % (Auto) 11.1 L [place] % (Auto) 6.2 Eos % (Auto) 0.3 Baso % (Auto) 0.2 Neut # (Auto) 6.1 Lymph # (Auto) 0.8 L [place] # (Auto) 0.5 Eos # (Auto) 0.0 Baso # (Auto) 0.0 PT INR Sodium 136 Potassium 3.6 Chloride 100 Carbon Dioxide 20 L Anion Gap 20 BUN 28 H Creatinine 1.8 H Est GFR ( Amer) 48 Est GFR (Non-Af Amer) 40 POC Glucose (mg/dL) 168 H Random Glucose 153 H Calcium 6.9 L Phosphorus 3.7 Magnesium 1.6 Total Bilirubin 5.8 H AST 61 H D ALT 30 Alkaline Phosphatase 61 Total Protein 5.1 L Albumin 2.6 L Globulin 2.5 Albumin/Globulin Ratio 1.0 Fluid Source Fluid Appearance Fluid WBC Fluid RBC Fluid Tot Cell Count Fluid Neutrophils Fluid Lymphocytes Fld Monocyte/Macrophag Fluid Comment 01/07/18 01/07/18 01/07/18 06:30 07:37 11:26 WBC RBC Hgb Hct MCV MCH MCHC RDW Plt Count MPV Neut % (Auto) Lymph % (Auto) [place] % (Auto) Eos % (Auto) Baso % (Auto) Neut # (Auto) Lymph # (Auto) [place] # (Auto) Eos # (Auto) Baso # (Auto) PT 26.8 H D INR 2.4 D Sodium Potassium Chloride Carbon Dioxide Anion Gap BUN Creatinine Est GFR ( Amer) Est GFR (Non-Af Amer) POC Glucose (mg/dL) 181 H 228 H Random Glucose Calcium Phosphorus Magnesium Total Bilirubin AST ALT Alkaline Phosphatase Total Protein Albumin Globulin Albumin/Globulin Ratio Fluid Source Fluid Appearance Fluid WBC Fluid RBC Fluid Tot Cell Count Fluid Neutrophils Fluid Lymphocytes Fld Monocyte/Macrophag Fluid Comment Critical Care Progress Note - Nutrition Nutrition: Nutrition Category Date Time Status Altered GI/Hepatic Diet [DIET] Diets 01/07/18 Lunch Active Assessment/Plan - Assessment and Plan (Free Text) Plan: Above resident has documented my clinical management and physical exam. -Paracentesis fluid revealed no SBP -- WBC/neutrophils < 250 -continue IV albumin to help improve HRS -LIver failure with underlying coagulopathy -Patient will benefit from oral lactulose to keep 3 BMs/day -Prognosis poor as patient has multi-organ failure (lver/kidneys) -currently DNR/DNI -Patient remains hemodynamically stable. - Date & Time Date: 01/07/18 Time: 14:23
--- NOTE | 2018-01-07 11:51 | CP.PCM.PN ---
Subjective - Date & Time of Evaluation Date of Evaluation: 01/07/18 Time of Evaluation: 11:35 - Subjective Subjective: Medical Attending Note: Patient seen and examined. Patient denies headache, denies chest pain, denies cough, denies shortness of breathe, denies hematemesis, denies abdominal pain, and olioguric. Patient has 7 Liters of ascites fluid yesterday, Patient downgraded to the floors today by ICU. Objective - Vital Signs/Intake and Output Vital Signs (last 24 hours): Temp Pulse Resp BP Pulse Ox 97.9 F 87 12 100/66 100 01/06/18 16:00 01/07/18 07:55 01/07/18 07:55 01/07/18 07:55 01/07/18 07:55 Intake and Output: 01/07/18 01/07/18 06:59 18:59 Intake Total 1750 300 Output Total 7300 Balance -5550 300 - Medications Medications: Current Medications Albumin Human (Albumin Human 25% (12.5 Gm/50 Ml)) 12.5 gm IV Q8H [facility] Stop: 01/09/18 15:01 Dextrose (Dextrose 50% Inj) 0 ml IV STAT PRN; Protocol PRN Reason: Hypoglycemia Protocol Dextrose (Glutose 15) 0 gm PO ONCE PRN; Protocol PRN Reason: Hypoglycemia Protocol Folic Acid (Folic Acid) 1 mg PO DAILY [facility] Last Admin: 01/07/18 10:43 Dose: 1 mg Glucagon (Glucagen Diagnostic Kit) 0 mg IM STAT PRN; Protocol PRN Reason: Hypoglycemia Protocol Dextrose (Dextrose 5% In Water 1000 Ml) 1,000 mls @ 0 mls/hr IV .Q0M PRN; Protocol; Per Protocol PRN Reason: Hypoglycemia Protocol Insulin Human Regular (Novolin R) 0 unit SC ACHS [facility] PRN Reason: Protocol Last Admin: 01/07/18 08:04 Dose: 1 unit Midodrine (Proamatine) 2.5 mg PO TID [facility] Last Admin: 01/07/18 09:11 Dose: 2.5 mg Multivitamins/Vitamin C (Multi-Delyn Liquid) 5 ml PO DAILY [facility] Last Admin: 01/07/18 10:43 Dose: 5 ml Spironolactone (Aldactone) 50 mg PO DAILY [facility] Last Admin: 01/07/18 10:44 Dose: 50 mg Thiamine HCl (Vitamin B1 Tab) 100 mg PO DAILY [facility] Last Admin: 01/07/18 10:43 Dose: 100 mg - Labs Labs: 01/07/18 06:30 01/07/18 06:30 PT 26.8 SECONDS (9.7-12.2) H D 01/07/18 06:30 INR 2.4 D 01/07/18 06:30 APTT 32 SECONDS (21-34) 01/04/18 12:29 - Constitutional Appears: Non-toxic, No Acute Distress, Unkempt, Chronically Ill - Head Exam Head Exam: NORMAL INSPECTION - Eye Exam Eye Exam: EOMI, Scleral icterus - Respiratory Exam Respiratory Exam: Decreased Breath Sounds, Rales, NORMAL BREATHING PATTERN - Cardiovascular Exam Cardiovascular Exam: REGULAR RHYTHM, +S1, +S2 - GI/Abdominal Exam GI & Abdominal Exam: Distended, Soft, Normal Bowel Sounds. absent: Guarding, Rigid, Tenderness, Rebound - Extremities Exam Extremities Exam: absent: Pedal Edema, Tenderness - Neurological Exam Neurological Exam: Alert, Awake, Oriented x3 - Psychiatric Exam Psychiatric exam: Normal Affect, Normal Mood - Skin Skin Exam: Dry, Intact, Warm Assessment and Plan (1) Hepatic encephalopathy Status: Acute (2) Hypomagnesemia Status: Acute (3) Liver cirrhosis Status: Chronic (4) Alcohol abuse Status: Acute (5) Abdominal pain Status: Acute (6) Anemia Status: Acute (7) Ascites Status: Acute (8) Hypokalemia Status: Acute (9) DNR (do not resuscitate) Status: Acute (10) DNI (do not intubate) Status: Acute (11) Prophylactic measure Status: Acute Attending/Attestation - Attestation I have personally seen and examined this patient.: Yes I have fully participated in the care of the patient.: Yes I have reviewed all pertinent clinical information, including history, physical exam and plan: Yes Notes (Text): (1) Hepatic encephalopathy Alcoholic Liver Cirrhosis Ascites Lactic Acidosis Erosive Esophagitis Pancreatic Insufficiency (noted in last admission) Status: Acute * GI (Dr. Constantino) on consult-->help appreciated * EGD (01/06/18): LA grade B erosive esophagitis. Non-bleeding gastric ulcer, gastritis. Normal duodenal bulb and second portion of the duodenum. Large amount bilious gastric fluid.-->f/u Pathology * On 01/06/18, Patient underwent 7 Liters removed from paracentesis. * Abdominal Fluid--> gram stain; Anaerobic Culture: pending; Body Fluid Culture : pending * Peritoneal/ascites. Cloudy. WBC: 116.0, RBC: 3076.0, Cell Count: 100, Neutrophils: 39, Lymphocytes: 57, Monocyte: 3 * Protonix 40mg PO BID * Patient continues to drink likely alcoholic liver cirrhosis. Patient had an extensive workup in Jul-Aug 2017 which he was last in the hospital. * Patient has completed 4 PRBC and 2 FFP on admission. * Prior imaging: * CT abd/pelvis with IV contrast 07/17: Significant bowel wall thickening involving the colon, appearance most consistent with acute colitis, cannot exclude underlying neoplasm. Small to moderate ascites. Fatty infiltration of the liver. Heterogeneous appearance to hepatic parenchyma. Some of appearance may be due to transient hepatic attenuation differences, concern for underlying lesion. * Endoscopy (07/28): small hiatal hernia, patchy mild inflammation in gastric antrum biopsies, scalloped mucosa found in duodenum, suspicious for celiac disease- biopsied; Biopsy: chemical gastritis, otherwise benign * Colonoscopy (07/28): internal hemorrhoids, mucosal nodule in the sigmoid colon , in transverse colon and in the ascending colon- biopsied; Biopsy: ascending colon edema, transverse colon and @20cm with edema and vascular ectasia * Lactic acid: 9.2--> 8.2-->5.3-->2.0-->1.8 * Elevated anion gap has normalized Imaging: * Abdominal US (01/04/18): large volume ascites * CT chest/abdomen/pelvis w/o contrast (01/05/18): increased number of hepatic lesions lung poorly characterized in the absence of IV contrast. extensive abdominal ascites and small pleural effusions. Nonspecific hyperdense area layering dependently within the ascites on the left. Nonspecific thickening of the colon which may be reactive in the setting of ascites or may represent colitis. Mild left hydoureteronephrosis without evidence of obstrutive calculus Medication: * Aldactone 50mg PO daily is on hold * on Creon (2) Electrolyte Abnormalities Status: Acute * Monitor and replete (3) Liver cirrhosis Status: Chronic * MDF >32 - consider addition of prednisolone therapy for acute EtOH hepatitis * will clarify with GI regarding steroids (4) Alcohol abuse Status: Chronic * 01/07: patient was counselled extensively in regards to his alcohol use. He is aware he had liver cirrhosis and his kidneys are affected by it. He is aware if he continues to drink he will be shortening his life. This was translated by his Gujarati speaking nurse. * Thiamine 100mg PO Daily * Folic Acid 1mg PO daily (5) Abdominal Distension Secondary to Ascites Status: Acute * CT chest/abdomen/pelvis w/o contrast (01/05/18): increased number of hepatic lesions lung poorly characterized in the absence of IV contrast. extensive abdominal ascites and small pleural effusions. Nonspecific hyperdense area layering dependently within the ascites on the left. Nonspecific thickening of the colon which may be reactive in the setting of ascites or may represent colitis. Mild left hydoureteronephrosis without evidence of obstructive calculus * on 01/06/18--> 7 Liters of Fluid removed from paracentesis has received Albumin does not appear to be SBP (6) Acute on Chronic Anemia Status: Acute * EGD (01/06/18): LA grade B erosive esophagitis. Non-bleeding gastric ulcer, gastritis. Normal duodenal bulb and second portion of the duodenum. Large amount bilious gastric fluid. * Patient has required blood transfusions and FFP during this admission. * Patient came in as Hgb 2.3; was previously discharged in 7s in prior hospitalization. (7) Ascites Status: Acute * likely secondary to alcoholic liver disease * Abdominal US (01/04/18): large volume ascites * on 01/06/18--> 7 Liters of Fluid removed from paracentesis has received Albumin does not appear to be SBP * CT chest/abdomen/pelvis w/o contrast (01/05/18): increased number of hepatic lesions lung poorly characterized in the absence of IV contrast. extensive abdominal ascites and small pleural effusions. Nonspecific hyperdense area layering dependently within the ascites on the left. Nonspecific thickening of the colon which may be reactive in the setting of ascites or may represent colitis. Mild left hydoureteronephrosis without evidence of obstructive calculus (8) Hypokalemia Status: Acute * repleted and normalized (9) DNR (do not resuscitate) Status: Acute * Patient has prior POLST from last hospitalization (10) DNI (do not intubate) Status: Acute * Patient has prior POLST from last hospitalization (11) Acute Renal Insuffiency Hepatorenal disease suspected Status: Acute * Nephrology (Dr. Potter) on the case-->help appreciated * patient is on Albumin 12.5gm IV 8H (from 01/07-01/09/18) (12) Thrombocytopenia Status: Acute * Chemical contraindication secondary to GI bleed/anemia/elevated INR * Suspected secondary alcohol liver disease * Protonix 40mg PO BID (13) Prophylactic measure Status: Acute * Chemical contraindication secondary to GI bleed/anemia/elevated INR * POLST: DNR/DNI last hospitalization * Luis Peng [phone] Patient's Friend-->who brought him in; friendship >20 years and involved in case also noted in last admission. * PICC line: right upper extremity * PT/OT eval Disposition: * Transferred to the floors from ICU * Reconsult PT/OT for conditioning * f/u pathology for EGG
--- NOTE | 2018-01-07 12:29 | CP.PCM.PN ---
Subjective - Date & Time of Evaluation Date of Evaluation: 01/07/18 Time of Evaluation: 11:00 - Subjective Subjective: Tolerating liquid diet this morning; abd pain better after large volume paracentesis yesterday; laying in chair, not wanting to sit up; reports no increase in urination; Objective - Vital Signs/Intake and Output Vital Signs (last 24 hours): Temp Pulse Resp BP Pulse Ox 97.9 F 85 13 106/69 100 01/06/18 16:00 01/07/18 11:22 01/07/18 11:22 01/07/18 11:22 01/07/18 11:22 Intake and Output: 01/07/18 01/07/18 06:59 18:59 Intake Total 1750 300 Output Total 7300 Balance -5550 300 - Medications Medications: Current Medications Albumin Human (Albumin Human 25% (12.5 Gm/50 Ml)) 12.5 gm IV Q8H [facility] Stop: 01/09/18 15:01 Dextrose (Dextrose 50% Inj) 0 ml IV STAT PRN; Protocol PRN Reason: Hypoglycemia Protocol Dextrose (Glutose 15) 0 gm PO ONCE PRN; Protocol PRN Reason: Hypoglycemia Protocol Folic Acid (Folic Acid) 1 mg PO DAILY [facility] Last Admin: 01/07/18 10:43 Dose: 1 mg Glucagon (Glucagen Diagnostic Kit) 0 mg IM STAT PRN; Protocol PRN Reason: Hypoglycemia Protocol Dextrose (Dextrose 5% In Water 1000 Ml) 1,000 mls @ 0 mls/hr IV .Q0M PRN; Protocol; Per Protocol PRN Reason: Hypoglycemia Protocol Insulin Human Regular (Novolin R) 0 unit SC ACHS [facility] PRN Reason: Protocol Midodrine (Proamatine) 2.5 mg PO TID [facility] Last Admin: 01/07/18 09:11 Dose: 2.5 mg Multivitamins/Vitamin C (Multi-Delyn Liquid) 5 ml PO DAILY [facility] Last Admin: 01/07/18 10:43 Dose: 5 ml Pantoprazole Sodium (Protonix Ec Tab) 40 mg PO BID [facility] Spironolactone (Aldactone) 50 mg PO DAILY [facility] Last Admin: 01/07/18 10:44 Dose: 50 mg Thiamine HCl (Vitamin B1 Tab) 100 mg PO DAILY [facility] Last Admin: 01/07/18 10:43 Dose: 100 mg - Labs Labs: 01/07/18 06:30 06/23/18 06:30 PT 26.8 SECONDS (9.7-12.2) H D 01/07/18 06:30 INR 2.4 D 01/07/18 06:30 APTT 32 SECONDS (21-34) 01/04/18 12:29 - Constitutional Appears: Non-toxic, No Acute Distress - ENT Exam ENT Exam: Mucous Membranes Moist - Respiratory Exam Respiratory Exam: Clear to Ausculation Bilateral. absent: Respiratory Distress - Cardiovascular Exam Cardiovascular Exam: RRR, +S1, +S2 - GI/Abdominal Exam GI & Abdominal Exam: Distended, Soft, Tenderness Additional comments: mild tenderness (improved); - Extremities Exam Additional comments: mild proximal leg edema; - Neurological Exam Neurological Exam: Alert, Awake - Psychiatric Exam Psychiatric exam: Normal Mood. absent: Agitated - Skin Skin Exam: Warm. absent: Cyanosis Assessment and Plan (1) Acute kidney injury Assessment & Plan: Rate of improvement in serum creatinine has slowed; certainly has pre-renal component in the setting of severe anemia and intravascular volume depletion; borderline oliguric; will need to re-assess after further volume expansion with IV albumin (got significant IV albumin after large volume paracentesis yesterday but may need more); -continue IV Albumin 12.5 g q6h; will check urine lytes tomorrow; -recommend to hold diuretics until we are sure patient is intravascularly volume replete; -repeating urine lytes tomorrow; if Ur Na still low and patient still with decreased urine output, chronic hepatorenal syndrome is likely; -avoid nephrotoxic agents (especially NSAIDS, fleets phosphate enema); Status: Acute (2) Hypotension Assessment & Plan: BP still borderline low this morning; see above regarding volume expansion; if BP remains the same, should start midodrine and octreotide; Status: Acute (3) Liver cirrhosis Assessment & Plan: End stage liver disease with imaging concerning for hepatocellular Ca; oil heaterman will benefit from being on standing diuretics (can start with lasix PO 20 mg bid and aldactone 25 mg daily) to decrease abd ascites accumulation; Status: Chronic (4) Hyponatremia Assessment & Plan: Improved with adequate volume replenishment, continuing same today; oil heaterman needs to be on loop diuretics as above, should not use aldactone alone as this can worsen hyponatremia (all diuretics will cause intravascular volume depletion which serves as impetus for ADH release and ensuing hyponatremia, however, lasix can mitigate this effect due to disrupting medullary concentrating gradient that is necessary for renal tubular free water retention) ; Status: Acute
[2018-01-07] MEDS ORDERED: Phytonadione 2.5 MG/0.5 TAB TAB PO SCH (12:30)
[2018-01-07] MEDS: Albumin Human 25% (12.5 gm/50 ml) IV SCH ×2 (14:53→22:10)
[2018-01-07] MEDS: Pantoprazole 40 mg EC Tab PO SCH (18:12)
[2018-01-08] MEDS: Albumin Human 25% (12.5 gm/50 ml) IV SCH ×3 (06:21→22:01)
[2018-01-08] MEDS: LIPASE/PROTEASE/AMYLASE 21,000 U ECC PO SCH ×3 (08:00→17:27)
[2018-01-08] MEDS: (Novolin R) Insulin Human Regular 100 units/ml vial SC SCH ×4 (08:00→21:47)
[2018-01-08 08:52] LABS: BASO # 0.1 K/uL (0.0-0.2); BASO % 0.5 % (0.0-2.0); EOS % 0.2 % (0.0-4.0); HEMOGLOBIN 7.3 g/dL (12.0-18.0); LYMPH # 1.9 K/uL (1.0-4.3); LYMPH % 19.6 % (20.0-40.0); MEAN CELL VOLUME 82.4 fL (80.0-94.0); MEAN CORPUSCULAR HEMOGLOBIN 28.9 pg (27.0-31.0); MEAN PLATELET VOLUME 8.7 fL (7.2-11.7); MONO # 0.9 K/uL (0.0-0.8); MONO % 8.8 % (0.0-10.0); NEUT % 70.9 % (50.0-75.0); NRBC % 0.5 % (0.0-2.0); RBC 2.53 Mil/uL (4.40-5.90); WHITE BLOOD COUNT 9.9 K/uL (4.8-10.8)
[2018-01-08 09:07] LABS: ALBUMIN 2.9 g/dL (3.5-5.0); CALCIUM 8.1 mg/dl (8.6-10.4); INR 2.2; PROTHROMBIN TIME 24.3 SECONDS (9.7-12.2)
[2018-01-08] MEDS: Pantoprazole 40 mg EC Tab PO SCH ×2 (09:09→17:27)
[2018-01-08] MEDS: Multiple Vitamins Oral Solution PO SCH (09:09)
--- NOTE | 2018-01-08 10:31 | CP.PCM.PN ---
Subjective - Date & Time of Evaluation Date of Evaluation: 01/08/18 Time of Evaluation: 10:20 - Subjective Subjective: Medical Attending Note: Patient seen, examined at bedside. Patient was transferred out from the ICU. Patient reports he is feeling ok. Patient reports mild abdominal distension. Patient denies headache, denies chest pain, denies palpitations, denies shortness of breathe, denies nausea, denies bloody bowel movements and denies hematemsis. Please note: patient speaks little bit of tajik, david and gujarati. Objective - Vital Signs/Intake and Output Vital Signs (last 24 hours): Temp Pulse Resp BP Pulse Ox 98.9 F 102 H 20 100/61 100 01/07/18 23:35 01/07/18 23:35 01/07/18 23:35 01/07/18 23:35 01/07/18 23:35 - Medications Medications: Current Medications Albumin Human (Albumin Human 25% (12.5 Gm/50 Ml)) 12.5 gm IV Q8H [facility] Stop: 01/09/18 15:01 Last Admin: 01/08/18 06:21 Dose: 12.5 gm Dextrose (Dextrose 50% Inj) 0 ml IV STAT PRN; Protocol PRN Reason: Hypoglycemia Protocol Dextrose (Glutose 15) 0 gm PO ONCE PRN; Protocol PRN Reason: Hypoglycemia Protocol Folic Acid (Folic Acid) 1 mg PO DAILY [facility] Last Admin: 01/08/18 09:09 Dose: 1 mg Glucagon (Glucagen Diagnostic Kit) 0 mg IM STAT PRN; Protocol PRN Reason: Hypoglycemia Protocol Dextrose (Dextrose 5% In Water 1000 Ml) 1,000 mls @ 0 mls/hr IV .Q0M PRN; Protocol; Per Protocol PRN Reason: Hypoglycemia Protocol Insulin Human Regular (Novolin R) 0 unit SC ACHS [facility] PRN Reason: Protocol Last Admin: 01/08/18 08:00 Dose: Not Given Midodrine (Proamatine) 2.5 mg PO TID [facility] Last Admin: 01/08/18 09:09 Dose: 2.5 mg Multivitamins/Vitamin C (Multi-Delyn Liquid) 5 ml PO DAILY [facility] Last Admin: 01/08/18 09:09 Dose: 5 ml Pantoprazole Sodium (Protonix Ec Tab) 40 mg PO BID [facility] Last Admin: 06/24/18 09:09 Dose: 40 mg Phytonadione (Vitamin K Tab) 5 mg PO DAILY [facility] Stop: 01/10/18 12:31 Last Admin: 01/08/18 09:08 Dose: 5 mg Spironolactone (Aldactone) 50 mg PO DAILY [facility] Last Admin: 01/07/18 10:44 Dose: 50 mg Thiamine HCl (Vitamin B1 Tab) 100 mg PO DAILY [facility] Last Admin: 01/08/18 09:09 Dose: 100 mg - Labs Labs: 01/08/18 08:40 01/08/18 08:40 PT 24.3 SECONDS (9.7-12.2) H 01/08/18 08:40 INR 2.2 01/08/18 08:40 APTT 32 SECONDS (21-34) 01/04/18 12:29 - Constitutional Appears: Non-toxic, No Acute Distress, Cachectic, Chronically Ill - Head Exam Head Exam: NORMAL INSPECTION - Eye Exam Eye Exam: EOMI Pupil Exam: NORMAL ACCOMODATION, PERRL - ENT Exam ENT Exam: Mucous Membranes Moist - Respiratory Exam Respiratory Exam: Rales (bibasilar), NORMAL BREATHING PATTERN. absent: Rhonchi , Wheezes, Stridor - Cardiovascular Exam Cardiovascular Exam: Tachycardia, +S1, +S2 - GI/Abdominal Exam GI & Abdominal Exam: Distended (improved), Soft, Normal Bowel Sounds. absent: Firm, Guarding, Rigid, Rebound - Extremities Exam Extremities Exam: Normal Capillary Refill. absent: Pedal Edema, Tenderness - Neurological Exam Neurological Exam: Alert, Awake, Oriented x3 Neuro motor strength exam: Left Upper Extremity: 5, Right Upper Extremity: 5, Left Lower Extremity: 5, Right Lower Extremity: 5 - Skin Skin Exam: Dry, Intact, Normal Color, Warm - Additional Findings Additional findings: Right PICC line upper extremity bruising noted over anterior chest Assessment and Plan (1) Hepatic encephalopathy Status: Acute (2) Hypomagnesemia Status: Acute (3) Liver cirrhosis Status: Chronic (4) Alcohol abuse Status: Acute (5) Abdominal pain Status: Acute (6) Anemia Status: Acute (7) Ascites Status: Acute (8) Hypokalemia Status: Acute (9) DNR (do not resuscitate) Status: Acute (10) DNI (do not intubate) Status: Acute (11) Prophylactic measure Status: Acute Attending/Attestation - Attestation I have personally seen and examined this patient.: Yes I have fully participated in the care of the patient.: Yes I have reviewed all pertinent clinical information, including history, physical exam and plan: Yes Notes (Text): (1) Hepatic encephalopathy -->Improved Alcoholic Liver Cirrhosis-->Chronic Ascites-->chronic Lactic Acidosis-->Stable Erosive Esophagitis Chronic Pancreatic Insufficiency (noted in last admission) Status: Acute * GI (Dr. Constantino) on consult-->help appreciated * EGD (01/06/18): LA grade B erosive esophagitis. Non-bleeding gastric ulcer, gastritis. Normal duodenal bulb and second portion of the duodenum. Large amount bilious gastric fluid.-->f/u Pathology * On 01/06/18, Patient underwent 7 Liters removed from paracentesis. * Abdominal Fluid--> gram stain; Anaerobic Culture: pending; Body Fluid Culture : pending * Peritoneal/ascites. Cloudy. WBC: 116.0, RBC: 3076.0, Cell Count: 100, Neutrophils: 39, Lymphocytes: 57, Monocyte: 3 * Protonix 40mg PO BID * Patient continues to drink likely alcoholic liver cirrhosis. Patient had an extensive workup in Jul-Aug 2017 which he was last in the hospital. * Patient has completed 4 PRBC and 2 FFP on admission. * Prior imaging: * CT abd/pelvis with IV contrast 07/17: Significant bowel wall thickening involving the colon, appearance most consistent with acute colitis, cannot exclude underlying neoplasm. Small to moderate ascites. Fatty infiltration of the liver. Heterogeneous appearance to hepatic parenchyma. Some of appearance may be due to transient hepatic attenuation differences, concern for underlying lesion. * Endoscopy (07/28): small hiatal hernia, patchy mild inflammation in gastric antrum biopsies, scalloped mucosa found in duodenum, suspicious for celiac disease- biopsied; Biopsy: chemical gastritis, otherwise benign * Colonoscopy (07/28): internal hemorrhoids, mucosal nodule in the sigmoid colon , in transverse colon and in the ascending colon- biopsied; Biopsy: ascending colon edema, transverse colon and @20cm with edema and vascular ectasia * Lactic acid: 9.2--> 8.2-->5.3-->2.0-->1.8 * Elevated anion gap has normalized Imaging: * Abdominal US (01/04/18): large volume ascites * CT chest/abdomen/pelvis w/o contrast (01/05/18): increased number of hepatic lesions lung poorly characterized in the absence of IV contrast. extensive abdominal ascites and small pleural effusions. Nonspecific hyperdense area layering dependently within the ascites on the left. Nonspecific thickening of the colon which may be reactive in the setting of ascites or may represent colitis. Mild left hydoureteronephrosis without evidence of obstrutive calculus Medication: * Aldactone 50mg PO daily is on hold * on Creon (2) Electrolyte Abnormalities Status: Acute * Monitor and replete (3) Liver cirrhosis Status: Chronic * MDF >32 - consider addition of prednisolone therapy for acute EtOH hepatitis * will clarify with GI regarding steroids (4) Alcohol abuse Status: Chronic * 01/07: patient was counselled extensively in regards to his alcohol use. He is aware he had liver cirrhosis and his kidneys are affected by it. He is aware if he continues to drink he will be shortening his life. This was translated by his Gura speaking nurse. * Thiamine 100mg PO Daily * Folic Acid 1mg PO daily (5) Abdominal Distension Secondary to Ascites Status: Acute * CT chest/abdomen/pelvis w/o contrast (01/05/18): increased number of hepatic lesions lung poorly characterized in the absence of IV contrast. extensive abdominal ascites and small pleural effusions. Nonspecific hyperdense area layering dependently within the ascites on the left. Nonspecific thickening of the colon which may be reactive in the setting of ascites or may represent colitis. Mild left hydoureteronephrosis without evidence of obstructive calculus * on 01/06/18--> 7 Liters of Fluid removed from paracentesis has received Albumin does not appear to be SBP (6) Acute on Chronic Anemia Status: Acute * EGD (01/06/18): LA grade B erosive esophagitis. Non-bleeding gastric ulcer, gastritis. Normal duodenal bulb and second portion of the duodenum. Large amount bilious gastric fluid. * Patient has required blood transfusions and FFP during this admission. * Patient came in as Hgb 2.3; was previously discharged in 7s in prior hospitalization. (7) Ascites Status: Acute * likely secondary to alcoholic liver disease * Abdominal US (01/04/18): large volume ascites * on 01/06/18--> 7 Liters of Fluid removed from paracentesis has received Albumin does not appear to be SBP * CT chest/abdomen/pelvis w/o contrast (01/05/18): increased number of hepatic lesions lung poorly characterized in the absence of IV contrast. extensive abdominal ascites and small pleural effusions. Nonspecific hyperdense area layering dependently within the ascites on the left. Nonspecific thickening of the colon which may be reactive in the setting of ascites or may represent colitis. Mild left hydoureteronephrosis without evidence of obstructive calculus (8) Hypokalemia Status: Acute * repleted and normalized (9) DNR (do not resuscitate) Status: Acute * Patient has prior POLST from last hospitalization (10) DNI (do not intubate) Status: Acute * Patient has prior POLST from last hospitalization (11) Acute Renal Insuffiency Hepatorenal disease suspected Status: Acute * Nephrology (Dr. Potter) on the case-->help appreciated * patient is on Albumin 12.5gm IV 8H (from 01/07-01/09/18) (12) Thrombocytopenia Status: Acute * Chemical contraindication secondary to GI bleed/anemia/elevated INR * Suspected secondary alcohol liver disease * Protonix 40mg PO BID (13) Prophylactic measure Status: Acute * Chemical contraindication secondary to GI bleed/anemia/elevated INR * POLST: DNR/DNI last hospitalization * Luis Peng [phone] Patient's Friend-->who brought him in; friendship >20 years and involved in case also noted in last admission. * PICC line: right upper extremity * PT/OT eval Disposition: * Patient will need physical and occupational therapy reconsulted since he has been transferred out from the unit due to deconditioning * We will need to monitor his blood pressure; patient is off loop diuretics. Nephrology is following. * Will need to f/u pathology from EGD. I have spoken with GI Fellow yesterday in regards to if steroids are needed in light of alcohol hepatitis/liver disease
--- NOTE | 2018-01-08 12:28 | CP.PCM.PN ---
<Saud Muse - Last Filed: 01/08/18 12:28> Subjective - Date & Time of Evaluation Date of Evaluation: 01/08/18 Time of Evaluation: 09:45 - Subjective Subjective: PGY5 GI Fellow Progress Note Patient seen and examined bedside this morning. The patient has no new complaints. States he is feeling well today. Denies SOB, abdominal distention or pain presently. 12 system ROS performed and negative except where stated. Objective - Vital Signs/Intake and Output Vital Signs (last 24 hours): Temp Pulse Resp BP Pulse Ox 98.9 F 102 H 20 100/61 100 01/07/18 23:35 01/07/18 23:35 01/07/18 23:35 01/07/18 23:35 01/07/18 23:35 - Medications Medications: Current Medications Albumin Human (Albumin Human 25% (12.5 Gm/50 Ml)) 12.5 gm IV Q8H [facility] Stop: 01/09/18 15:01 Last Admin: 01/08/18 06:21 Dose: 12.5 gm Dextrose (Dextrose 50% Inj) 0 ml IV STAT PRN; Protocol PRN Reason: Hypoglycemia Protocol Dextrose (Glutose 15) 0 gm PO ONCE PRN; Protocol PRN Reason: Hypoglycemia Protocol Folic Acid (Folic Acid) 1 mg PO DAILY [facility] Last Admin: 01/08/18 09:09 Dose: 1 mg Glucagon (Glucagen Diagnostic Kit) 0 mg IM STAT PRN; Protocol PRN Reason: Hypoglycemia Protocol Dextrose (Dextrose 5% In Water 1000 Ml) 1,000 mls @ 0 mls/hr IV .Q0M PRN; Protocol; Per Protocol PRN Reason: Hypoglycemia Protocol Insulin Human Regular (Novolin R) 0 unit SC ACHS [facility] PRN Reason: Protocol Last Admin: 01/08/18 11:45 Dose: 2 u Midodrine (Proamatine) 2.5 mg PO TID [facility] Last Admin: 01/08/18 09:09 Dose: 2.5 mg Multivitamins/Vitamin C (Multi-Delyn Liquid) 5 ml PO DAILY [facility] Last Admin: 01/08/18 09:09 Dose: 5 ml Pantoprazole Sodium (Protonix Ec Tab) 40 mg PO BID [facility] Last Admin: 01/08/18 09:09 Dose: 40 mg Phytonadione (Vitamin K Tab) 5 mg PO DAILY [facility] Stop: 01/10/18 12:31 Last Admin: 01/08/18 09:08 Dose: 5 mg Spironolactone (Aldactone) 50 mg PO DAILY [facility] Last Admin: 01/07/18 10:44 Dose: 50 mg Thiamine HCl (Vitamin B1 Tab) 100 mg PO DAILY [facility] Last Admin: 01/08/18 09:09 Dose: 100 mg - Labs Labs: 01/08/18 08:40 01/08/18 08:40 PT 24.3 SECONDS (9.7-12.2) H 01/08/18 08:40 INR 2.2 01/08/18 08:40 APTT 32 SECONDS (21-34) 01/04/18 12:29 - Constitutional Appears: No Acute Distress, Cachectic, Chronically Ill - Eye Exam Eye Exam: EOMI, PERRL, Scleral icterus - ENT Exam ENT Exam: Mucous Membranes Dry - Respiratory Exam Respiratory Exam: Clear to Ausculation Bilateral. absent: Rales, Rhonchi, Wheezes - Cardiovascular Exam Cardiovascular Exam: RRR, +S1, +S2 - GI/Abdominal Exam GI & Abdominal Exam: Distended, Soft, Tenderness, Normal Bowel Sounds. absent: Firm, Guarding, Rigid, Hernia, Mass, Organomegaly - Extremities Exam Extremities Exam: Normal Inspection. absent: Pedal Edema - Neurological Exam Neurological Exam: Alert, Awake, Oriented x3 - Psychiatric Exam Psychiatric exam: Normal Affect, Normal Mood - Skin Skin Exam: Dry, Warm Assessment and Plan - Assessment and Plan (Free Text) Assessment: Pt is a 52yo male with PMHx significant for decompensated cirrhosis c/b recurrent ascites, hepatic encephalopathy, also with chronic pancreatitis and insufficiency, anemia of chronic illness who was admitted for altered mental stutus and abdominal pain. Found to be profoundly anemia on admission. -Acute anemia - stable -Decompensated EtOH cirrhosis -PUD - gastric ulcer -Esophagitis -Ascites 2/2 above -Hepatic encephalopathy resolved -SHUN R/O HRS Plan: -No evidence of overt GI bleeding, HGB stable -Transfuse as necessary with goal HGB 7-8 in cirrhotic patient -Modest improvement in Cr - continue to hold diuretic therapy; IV albumin currently ordered Q8H and on Midodrine -Consider addition of octreotide if no improvements in Cr -EtOH cessation and rehabilitation stressed -On PPI therapy for PUD/Esophagitis - avoid long term care administrator use given increased risk for infection in cirrhotics <Frantz Guerrero - Last Filed: 01/08/18 18:49> Objective - Vital Signs/Intake and Output Vital Signs (last 24 hours): Temp Pulse Resp BP Pulse Ox 98.5 F 95 H 20 122/54 L 100 01/08/18 08:00 01/08/18 08:00 01/08/18 08:00 01/08/18 08:00 01/08/18 08:00 Intake and Output: 01/08/18 01/08/18 06:59 18:59 Intake Total 100 Balance 100 - Medications Medications: Current Medications Albumin Human (Albumin Human 25% (12.5 Gm/50 Ml)) 12.5 gm IV Q8H [facility] Stop: 01/09/18 15:01 Last Admin: 01/08/18 15:03 Dose: 12.5 gm Dextrose (Dextrose 50% Inj) 0 ml IV STAT PRN; Protocol PRN Reason: Hypoglycemia Protocol Dextrose (Glutose 15) 0 gm PO ONCE PRN; Protocol PRN Reason: Hypoglycemia Protocol Folic Acid (Folic Acid) 1 mg PO DAILY [facility] Last Admin: 01/08/18 09:09 Dose: 1 mg Glucagon (Glucagen Diagnostic Kit) 0 mg IM STAT PRN; Protocol PRN Reason: Hypoglycemia Protocol Dextrose (Dextrose 5% In Water 1000 Ml) 1,000 mls @ 0 mls/hr IV .Q0M PRN; Protocol; Per Protocol PRN Reason: Hypoglycemia Protocol Insulin Human Regular (Novolin R) 0 unit SC ACHS [facility] PRN Reason: Protocol Last Admin: 01/08/18 17:28 Dose: Not Given Midodrine (Proamatine) 2.5 mg PO TID [facility] Last Admin: 01/08/18 17:27 Dose: 2.5 mg Multivitamins/Vitamin C (Multi-Delyn Liquid) 5 ml PO DAILY [facility] Last Admin: 01/08/18 09:09 Dose: 5 ml Pantoprazole Sodium (Protonix Ec Tab) 40 mg PO BID [facility] Last Admin: 01/08/18 17:27 Dose: 40 mg Phytonadione (Vitamin K Tab) 5 mg PO DAILY [facility] Stop: 01/10/18 12:31 Last Admin: 01/08/18 09:08 Dose: 5 mg Spironolactone (Aldactone) 50 mg PO DAILY [facility] Last Admin: 01/07/18 10:44 Dose: 50 mg Thiamine HCl (Vitamin B1 Tab) 100 mg PO DAILY [facility] Last Admin: 01/08/18 09:09 Dose: 100 mg - Labs Labs: 01/08/18 08:40 01/08/18 08:40 PT 24.3 SECONDS (9.7-12.2) H 01/08/18 08:40 INR 2.2 01/08/18 08:40 APTT 32 SECONDS (21-34) 01/04/18 12:29 Attending/Attestation - Attestation I have personally seen and examined this patient.: Yes I have fully participated in the care of the patient.: Yes I have reviewed all pertinent clinical information, including history, physical exam and plan: Yes Notes (Text): 01/08/18 18:48 52 year old male with decompensated cirrhosis c/b ARF, ascites, anemia s/p transfusion, gastric ulcer. Continue PPI. Avoid nsaids. Await path. Midodorine/ albmuin per nephrology. S/p para with no evidence of sbp. Diet as tolerated. Improving, though overall prognosis is poor.
[2018-01-08 22:11] LABS: CREATININE, RANDOM URINE 98.9 mg/dL
[2018-01-09] MEDS: Albumin Human 25% (12.5 gm/50 ml) IV SCH ×2 (06:17→14:06)
[2018-01-09] MEDS: (Novolin R) Insulin Human Regular 100 units/ml vial SC SCH ×4 (07:38→21:28)
--- NOTE | 2018-01-09 07:40 | CP.PCM.PN ---
<Tila Michelle - Last Filed: 01/09/18 10:49> Subjective - Date & Time of Evaluation Date of Evaluation: 01/09/18 Time of Evaluation: 07:00 - Subjective Subjective: GI Fellow PGY4 Progress Note Pt seen and evaluated at bedside, pt doing well with no complaints. Reports mild abdominal discomfort s/p paracentesis neg for SBP. No rectal bleeding or hematemesis. ROS: A 12pt ROS was negative except as above. Objective - Vital Signs/Intake and Output Vital Signs (last 24 hours): Temp Pulse Resp BP Pulse Ox 98.5 F 79 20 107/68 100 01/08/18 23:13 01/08/18 23:13 01/08/18 23:13 01/08/18 23:13 01/08/18 23:13 - Medications Medications: Current Medications Albumin Human (Albumin Human 25% (12.5 Gm/50 Ml)) 12.5 gm IV Q8H [facility] Stop: 01/09/18 15:01 Last Admin: 01/09/18 06:17 Dose: 12.5 gm Dextrose (Dextrose 50% Inj) 0 ml IV STAT PRN; Protocol PRN Reason: Hypoglycemia Protocol Dextrose (Glutose 15) 0 gm PO ONCE PRN; Protocol PRN Reason: Hypoglycemia Protocol Folic Acid (Folic Acid) 1 mg PO DAILY [facility] Last Admin: 01/08/18 09:09 Dose: 1 mg Glucagon (Glucagen Diagnostic Kit) 0 mg IM STAT PRN; Protocol PRN Reason: Hypoglycemia Protocol Dextrose (Dextrose 5% In Water 1000 Ml) 1,000 mls @ 0 mls/hr IV .Q0M PRN; Protocol; Per Protocol PRN Reason: Hypoglycemia Protocol Insulin Human Regular (Novolin R) 0 unit SC ACHS [facility] PRN Reason: Protocol Last Admin: 01/08/18 21:47 Dose: Not Given Midodrine (Proamatine) 2.5 mg PO TID [facility] Last Admin: 01/08/18 17:27 Dose: 2.5 mg Multivitamins/Vitamin C (Multi-Delyn Liquid) 5 ml PO DAILY [facility] Last Admin: 01/08/18 09:09 Dose: 5 ml Pantoprazole Sodium (Protonix Ec Tab) 40 mg PO BID [facility] Last Admin: 01/08/18 17:27 Dose: 40 mg Phytonadione (Vitamin K Tab) 5 mg PO DAILY [facility] Stop: 01/10/18 12:31 Last Admin: 01/08/18 09:08 Dose: 5 mg Spironolactone (Aldactone) 50 mg PO DAILY [facility] Last Admin: 01/07/18 10:44 Dose: 50 mg Thiamine HCl (Vitamin B1 Tab) 100 mg PO DAILY [facility] Last Admin: 01/08/18 09:09 Dose: 100 mg - Labs Labs: 01/08/18 08:40 01/08/18 08:40 PT 24.3 SECONDS (9.7-12.2) H 01/08/18 08:40 INR 2.2 01/08/18 08:40 APTT 32 SECONDS (21-34) 01/04/18 12:29 - Constitutional Appears: Non-toxic, No Acute Distress - Head Exam Head Exam: ATRAUMATIC, NORMAL INSPECTION, NORMOCEPHALIC - Eye Exam Eye Exam: EOMI, Normal appearance, PERRL Pupil Exam: PERRL - ENT Exam ENT Exam: Mucous Membranes Moist - Neck Exam Neck Exam: Full ROM, Normal Inspection - Respiratory Exam Respiratory Exam: Clear to Ausculation Bilateral, NORMAL BREATHING PATTERN - Cardiovascular Exam Cardiovascular Exam: RRR, +S1, +S2 - GI/Abdominal Exam GI & Abdominal Exam: Soft, Tenderness, Normal Bowel Sounds. absent: Distended, Rigid, Organomegaly - Rectal Exam Rectal Exam: Deferred - Extremities Exam Extremities Exam: Full ROM. absent: Pedal Edema - Back Exam Back Exam: NORMAL INSPECTION - Neurological Exam Neurological Exam: Alert, Awake, Oriented x3 - Psychiatric Exam Psychiatric exam: Flat Affect - Skin Skin Exam: Dry, Intact, Normal Color, Warm Assessment and Plan - Assessment and Plan (Free Text) Assessment: This is a 52 year old male with PMHx of Liver Cirrhosis with recurrent ascites, hepatic encephalopathy, ?chronic pancreatitis, with pancreatic insufficiency, Anemia of Chronic Disease admitted for AMS, abdominal pain, found to have hemoglobin of 2.9 and potassium of 1.4 on admission. 1. Acute Anemia s/p EGD with Gastric Ulcer clean based no bleeding 2. Decompensated alcoholic cirrhosis MELD 35 on admission 3. Alcoholic Hepatitis on admission DF 65.2 4. Ascites s/p paracentesis 5. Hepatic encephalopathy-resolved 6. SHUN r/o HRS Plan: -Continue supportive care -Anemia, no active GI bleeding s/p EGD with no esophageal varices, +Gastric ulcer clean based with no bleeding -Hgb low, continue to monitor and transfuse as needed -Acites s/p paracentesis neg SBP -Monitor for alcohol withdrawal -Replete electrolytes -SHUN, monitor renal function, improving with midodrine and albumin, can consider adding octreotide -Hold diuretics -Nephrology cs -Lactulose daily for HE -Abd CT and MRCP from 07/2017 neg for HCC -Alcohol cessation counseling -Please call with any questions or concerns <Merlin Constantino - Last Filed: 01/09/18 12:01> Objective - Vital Signs/Intake and Output Vital Signs (last 24 hours): Temp Pulse Resp BP Pulse Ox 98.5 F 81 20 99/55 L 100 01/09/18 07:00 01/09/18 07:00 01/09/18 07:00 01/09/18 07:00 01/09/18 07:00 - Medications Medications: Current Medications Albumin Human (Albumin Human 25% (12.5 Gm/50 Ml)) 12.5 gm IV Q8H [facility] Stop: 01/09/18 15:01 Last Admin: 01/09/18 06:17 Dose: 12.5 gm Dextrose (Dextrose 50% Inj) 0 ml IV STAT PRN; Protocol PRN Reason: Hypoglycemia Protocol Dextrose (Glutose 15) 0 gm PO ONCE PRN; Protocol PRN Reason: Hypoglycemia Protocol Folic Acid (Folic Acid) 1 mg PO DAILY [facility] Last Admin: 01/09/18 09:24 Dose: 1 mg Glucagon (Glucagen Diagnostic Kit) 0 mg IM STAT PRN; Protocol PRN Reason: Hypoglycemia Protocol Dextrose (Dextrose 5% In Water 1000 Ml) 1,000 mls @ 0 mls/hr IV .Q0M PRN; Protocol; Per Protocol PRN Reason: Hypoglycemia Protocol Insulin Human Regular (Novolin R) 0 unit SC ACHS [facility] PRN Reason: Protocol Last Admin: 01/09/18 11:15 Dose: Not Given Lactulose (Enulose) 20 gm PO [facility] Midodrine (Proamatine) 2.5 mg PO TID [facility] Last Admin: 01/09/18 09:24 Dose: 2.5 mg Multivitamins (Hexavitamin) 1 tab PO DAILY [facility] Last Admin: 01/09/18 11:18 Dose: 1 tab Pantoprazole Sodium (Protonix Ec Tab) 40 mg PO BID [facility] Last Admin: 01/09/18 09:24 Dose: 40 mg Phytonadione (Vitamin K Tab) 5 mg PO DAILY [facility] Stop: 01/10/18 12:31 Last Admin: 01/09/18 09:24 Dose: 5 mg Spironolactone (Aldactone) 50 mg PO DAILY [facility] Last Admin: 01/07/18 10:44 Dose: 50 mg Thiamine HCl (Vitamin B1 Tab) 100 mg PO DAILY [facility] Last Admin: 01/09/18 09:24 Dose: 100 mg - Labs Labs: 01/09/18 08:13 01/09/18 08:13 PT 25.9 SECONDS (9.7-12.2) H 01/09/18 08:13 INR 2.4 01/09/18 08:13 APTT 32 SECONDS (21-34) 01/04/18 12:29 Attending/Attestation - Attestation I have personally seen and examined this patient.: Yes I have fully participated in the care of the patient.: Yes I have reviewed all pertinent clinical information, including history, physical exam and plan: Yes Notes (Text): 01/09/18 11:58 I have seen and examined patient with GI fellow. No acute events overnight, he reports multiple episodes of loose bowel movements overnight. He also reports mild RLQ abdominal pain but otherwise denies nausea, vomiting, fever/chills. Tolerating PO diet without difficulty. Decompensated ETOH cirrhosis Anemia s/p EGD showing gastric ulcer Acute renal insufficiency, HRS - Low sodium diet as tolerated - Continue with lactulose/xifaxan for HE prevention - LFTs stable, continue to monitor - Suggest transfusion of 1 unit PRBC and continued monitoring H/H - Continue with midodrine/albumin therapy for HRS, follow up nephrology recommendations - Will continue to monitor patient clinical course
[2018-01-09] MEDS: LIPASE/PROTEASE/AMYLASE 21,000 U ECC PO SCH ×3 (07:59→17:10)
[2018-01-09 08:19] LABS: HEMOGLOBIN 6.8 g/dL (12.0-18.0); MEAN CELL VOLUME 83.4 fL (80.0-94.0); MEAN CORPUSCULAR HEMOGLOBIN 28.8 pg (27.0-31.0); MEAN CORPUSCULAR HGB CONC 34.6 g/dL (33.0-37.0); MEAN PLATELET VOLUME 8.6 fL (7.2-11.7); RBC 2.38 Mil/uL (4.40-5.90); RED CELL DISTRIBUTION WIDTH 18.2 % (11.5-14.5); WHITE BLOOD COUNT 8.7 K/uL (4.8-10.8)
[2018-01-09 08:32] LABS: INR 2.4; PROTHROMBIN TIME 25.9 SECONDS (9.7-12.2)
[2018-01-09 08:33] LABS: ALB/GLOB RATIO 1.1 (1.0-2.1); ALBUMIN 3.3 g/dL (3.5-5.0); CALCIUM 8.5 mg/dl (8.6-10.4)
[2018-01-09] MEDS: Pantoprazole 40 mg EC Tab PO SCH ×2 (09:24→17:10)
--- NOTE | 2018-01-09 09:40 | CP.PCM.PN ---
Subjective - Date & Time of Evaluation Date of Evaluation: 01/09/18 Time of Evaluation: 07:00 - Subjective Subjective: PGY2- Medicine Note for Dr. Peng Patient seen and examined at bedside and in no acute distress. Patient says he has generalized abdominal pain today with multiple episodes of watery diarrhea. Patient denies headache, chest pain, shortness of breath, nausea, or vomiting. Objective - Vital Signs/Intake and Output Vital Signs (last 24 hours): Temp Pulse Resp BP Pulse Ox 98.5 F 81 20 99/55 L 100 01/09/18 07:00 01/09/18 07:00 01/09/18 07:00 01/09/18 07:00 01/09/18 07:00 - Medications Medications: Current Medications Albumin Human (Albumin Human 25% (12.5 Gm/50 Ml)) 12.5 gm IV Q8H ON LICENSE OF [facility] Stop: 01/09/18 15:01 Last Admin: 01/09/18 06:17 Dose: 12.5 gm Dextrose (Dextrose 50% Inj) 0 ml IV STAT PRN; Protocol PRN Reason: Hypoglycemia Protocol Dextrose (Glutose 15) 0 gm PO ONCE PRN; Protocol PRN Reason: Hypoglycemia Protocol Folic Acid (Folic Acid) 1 mg PO DAILY ON [facility] OF [facility] Last Admin: 01/09/18 09:24 Dose: 1 mg Glucagon (Glucagen Diagnostic Kit) 0 mg IM STAT PRN; Protocol PRN Reason: Hypoglycemia Protocol Dextrose (Dextrose 5% In Water 1000 Ml) 1,000 mls @ 0 mls/hr IV .Q0M PRN; Protocol; Per Protocol PRN Reason: Hypoglycemia Protocol Insulin Human Regular (Novolin R) 0 unit SC ACHS ON [facility] OF [facility] PRN Reason: Protocol Last Admin: 01/09/18 07:38 Dose: 2 units Midodrine (Proamatine) 2.5 mg PO TID ON LICENSE OF [facility] Last Admin: 01/09/18 09:24 Dose: 2.5 mg Multivitamins/Vitamin C (Multi-Delyn Liquid) 5 ml PO DAILY ON [facility] OF [facility] Last Admin: 01/08/18 09:09 Dose: 5 ml Pantoprazole Sodium (Protonix Ec Tab) 40 mg PO BID ON [facility] OF [facility] Last Admin: 01/09/18 09:24 Dose: 40 mg Phytonadione (Vitamin K Tab) 5 mg PO DAILY ON [facility] OF [facility] Stop: 01/10/18 12:31 Last Admin: 01/09/18 09:24 Dose: 5 mg Spironolactone (Aldactone) 50 mg PO DAILY ON [facility] OF [facility] Last Admin: 01/07/18 10:44 Dose: 50 mg Thiamine HCl (Vitamin B1 Tab) 100 mg PO DAILY ON [facility] OF [facility] Last Admin: 01/09/18 09:24 Dose: 100 mg - Labs Labs: 01/09/18 08:13 01/09/18 08:13 PT 25.9 SECONDS (9.7-12.2) H 01/09/18 08:13 INR 2.4 01/09/18 08:13 APTT 32 SECONDS (21-34) 01/04/18 12:29 - Additional Findings Additional findings: - Constitutional Appears: Non-toxic, No Acute Distress, Cachectic, Chronically Ill - Head Exam Head Exam: NORMAL INSPECTION - Eye Exam Eye Exam: EOMI Pupil Exam: NORMAL ACCOMODATION, PERRL - ENT Exam ENT Exam: Mucous Membranes Moist - Respiratory Exam Respiratory Exam: Rales (bibasilar), NORMAL BREATHING PATTERN. absent: Rhonchi , Wheezes, Stridor - Cardiovascular Exam Cardiovascular Exam: Tachycardia, +S1, +S2 - GI/Abdominal Exam GI & Abdominal Exam: Distended (improved), Soft, Normal Bowel Sounds, Tenderness. absent: Firm, Guarding, Rigid, Rebound - Extremities Exam Extremities Exam: Normal Capillary Refill. absent: Pedal Edema, Tenderness - Neurological Exam Neurological Exam: Alert, Awake, Oriented x3 Neuro motor strength exam: Left Upper Extremity: 5, Right Upper Extremity: 5, Left Lower Extremity: 5, Right Lower Extremity: 5 - Skin Skin Exam: Dry, Intact, Normal Color, Warm bruising noted over anterior chest Assessment and Plan - Assessment and Plan (Free Text) Assessment: (1) Hepatic encephalopathy Alcoholic Liver Cirrhosis Ascites Lactic Acidosis Erosive Esophagitis Pancreatic Insufficiency (noted in last admission) Status: Acute * GI (Dr. Constantino) on consult-->help appreciated * EGD (01/06/18): LA grade B erosive esophagitis. Non-bleeding gastric ulcer, gastritis. Normal duodenal bulb and second portion of the duodenum. Large amount bilious gastric fluid.-->f/u Pathology * On 01/06/18, Patient underwent 7 Liters removed from paracentesis. * Abdominal Fluid--> gram stain; Anaerobic Culture: pending; Body Fluid Culture : pending * Peritoneal/ascites. Cloudy. WBC: 116.0, RBC: 3076.0, Cell Count: 100, Neutrophils: 39, Lymphocytes: 57, Monocyte: 3 * Patient continues to drink likely alcoholic liver cirrhosis. Patient had an extensive workup in Jul-Aug 2017 which he was last in the hospital. * Patient has completed 4 PRBC and 2 FFP on admission. * Prior imaging: * CT abd/pelvis with IV contrast 07/17: Significant bowel wall thickening involving the colon, appearance most consistent with acute colitis, cannot exclude underlying neoplasm. Small to moderate ascites. Fatty infiltration of the liver. Heterogeneous appearance to hepatic parenchyma. Some of appearance may be due to transient hepatic attenuation differences, concern for underlying lesion. * Endoscopy (07/28): small hiatal hernia, patchy mild inflammation in gastric antrum biopsies, scalloped mucosa found in duodenum, suspicious for celiac disease- biopsied; Biopsy: chemical gastritis, otherwise benign * Colonoscopy (07/28): internal hemorrhoids, mucosal nodule in the sigmoid colon , in transverse colon and in the ascending colon- biopsied; Biopsy: ascending colon edema, transverse colon and @20cm with edema and vascular ectasia * Lactic acid: 9.2--> 8.2-->5.3-->2.0-->1.8 * Elevated anion gap has normalized Imaging: * Abdominal US (01/04/18): large volume ascites * CT chest/abdomen/pelvis w/o contrast (01/05/18): increased number of hepatic lesions lung poorly characterized in the absence of IV contrast. extensive abdominal ascites and small pleural effusions. Nonspecific hyperdense area layering dependently within the ascites on the left. Nonspecific thickening of the colon which may be reactive in the setting of ascites or may represent colitis. Mild left hydoureteronephrosis without evidence of obstrutive calculus Medication: * Aldactone 50mg PO daily is on hold * on Creon * Protonix 40mg PO BID * not on beta osiris or propranolol due to low BP (2) Electrolyte Abnormalities Status: Acute * Mg repleted on 01/09 * repleted and normalized * Monitor and replete (3) Liver cirrhosis Status: Chronic * MDF >32 - consider addition of prednisolone therapy for acute EtOH hepatitis * will clarify with GI regarding steroids (4) Alcohol abuse Status: Chronic * 01/07: patient was counselled extensively in regards to his alcohol use. He is aware he had liver cirrhosis and his kidneys are affected by it. He is aware if he continues to drink he will be shortening his life. This was translated by his Gujarati speaking nurse. * Thiamine 100mg PO Daily * Folic Acid 1mg PO daily (5) Abdominal Distension Secondary to Ascites Status: Acute * CT chest/abdomen/pelvis w/o contrast (01/05/18): increased number of hepatic lesions lung poorly characterized in the absence of IV contrast. extensive abdominal ascites and small pleural effusions. Nonspecific hyperdense area layering dependently within the ascites on the left. Nonspecific thickening of the colon which may be reactive in the setting of ascites or may represent colitis. Mild left hydoureteronephrosis without evidence of obstructive calculus * on 01/06/18--> 7 Liters of Fluid removed from paracentesis has received Albumin does not appear to be SBP (6) Acute on Chronic Anemia Status: Acute * HgB 6.8 on 01/09, will transfuse 2 u prbc * EGD (01/06/18): LA grade B erosive esophagitis. Non-bleeding gastric ulcer, gastritis. Normal duodenal bulb and second portion of the duodenum. Large amount bilious gastric fluid. * f/u path * Patient has completed 4 PRBC and 2 FFP on admission. * Patient came in as Hgb 2.3; was previously discharged in 7s prior hospitalization. (7) Ascites Status: Acute * likely secondary to alcoholic liver disease * Abdominal US (01/04/18): large volume ascites * on 01/06/18--> 7 Liters of Fluid removed from paracentesis has received Albumin does not appear to be SBP * CT chest/abdomen/pelvis w/o contrast (01/05/18): increased number of hepatic lesions lung poorly characterized in the absence of IV contrast. extensive abdominal ascites and small pleural effusions. Nonspecific hyperdense area layering dependently within the ascites on the left. Nonspecific thickening of the colon which may be reactive in the setting of ascites or may represent colitis. Mild left hydoureteronephrosis without evidence of obstructive calculus (8) DNR (do not resuscitate) Status: Acute * Patient has prior POLST from last hospitalization (9) DNI (do not intubate) Status: Acute * Patient has prior POLST from last hospitalization (10) Acute Renal Insuffiency Hepatorenal disease suspected Status: Acute * Nephrology (Dr. Potter) on the case-->help appreciated * patient is on Albumin 12.5gm IV 8H (from 01/07-01/09/18) (11) Thrombocytopenia Status: Acute * Chemical contraindication secondary to GI bleed/anemia/elevated INR * Suspected secondary alcohol liver disease * Protonix 40mg PO BID (12) Prophylactic measure Status: Acute * Chemical contraindication secondary to GI bleed/anemia/elevated INR * POLST: DNR/DNI last hospitalization * Luis Peng [phone] Patient's Friend-->who brought him in; friendship >20 years and involved in case also noted in last admission. * PT/OT jyotial
[2018-01-09] MEDS: Multiple Vitamins Tab PO SCH (11:18)
[2018-01-09] MEDS: OCTREOTIDE IVPB SCH (18:00)
[2018-01-09] MEDS: SODIUM CHLORIDE 0.9% IVPB SCH (18:00)
--- NOTE | 2018-01-09 19:39 | CP.PCM.PN ---
Subjective - Date & Time of Evaluation Date of Evaluation: 01/09/18 Time of Evaluation: 13:00 Objective - Vital Signs/Intake and Output Vital Signs (last 24 hours): Temp Pulse Resp BP Pulse Ox 98.1 F 80 18 112/66 100 01/09/18 17:07 01/09/18 17:07 01/09/18 17:07 01/09/18 17:07 01/09/18 16:00 Intake and Output: 01/09/18 01/10/18 18:59 06:59 Intake Total 100 Balance 100 - Medications Medications: Current Medications Dextrose (Dextrose 50% Inj) 0 ml IV STAT PRN; Protocol PRN Reason: Hypoglycemia Protocol Dextrose (Glutose 15) 0 gm PO ONCE PRN; Protocol PRN Reason: Hypoglycemia Protocol Folic Acid (Folic Acid) 1 mg PO DAILY [facility] Last Admin: 01/09/18 09:24 Dose: 1 mg Glucagon (Glucagen Diagnostic Kit) 0 mg IM STAT PRN; Protocol PRN Reason: Hypoglycemia Protocol Dextrose (Dextrose 5% In Water 1000 Ml) 1,000 mls @ 0 mls/hr IV .Q0M PRN; Protocol; Per Protocol PRN Reason: Hypoglycemia Protocol Octreotide Acetate 100 mcg/ (Sodium Chloride) 52 mls @ 102 mls/hr IVPB Q8H [facility] Insulin Human Regular (Novolin R) 0 unit SC ACHS [facility] PRN Reason: Protocol Last Admin: 01/09/18 17:07 Dose: 2 units Lactulose (Enulose) 20 gm PO HS [facility] Midodrine (Proamatine) 5 mg PO TID [facility] Last Admin: 01/09/18 17:09 Dose: 5 mg Multivitamins (Hexavitamin) 1 tab PO DAILY [facility] Last Admin: 01/09/18 11:18 Dose: 1 tab Pantoprazole Sodium (Protonix Ec Tab) 40 mg PO BID [facility] Last Admin: 01/09/18 17:10 Dose: 40 mg Phytonadione (Vitamin K Tab) 5 mg PO DAILY [facility] Stop: 01/10/18 12:31 Last Admin: 01/09/18 09:24 Dose: 5 mg Spironolactone (Aldactone) 50 mg PO DAILY [facility] Last Admin: 01/07/18 10:44 Dose: 50 mg Thiamine HCl (Vitamin B1 Tab) 100 mg PO DAILY [facility] Last Admin: 01/09/18 09:24 Dose: 100 mg - Labs Labs: 01/09/18 08:13 01/09/18 08:13 PT 25.9 SECONDS (9.7-12.2) H 01/09/18 08:13 INR 2.4 01/09/18 08:13 APTT 32 SECONDS (21-34) 01/04/18 12:29 Assessment and Plan (1) Acute kidney injury Assessment & Plan: Renal function had improved but serum creatinine now at plateau, significantly higher than baseline; peristently low urine Na despite having received adequate intravascular volume repletion with IV albumin is indicative of HRS, likely a more indolent form; stable electrolytes; -will start octreotide 100 mg q8h; -increasing midodrine to 5 mg tid; -avoid nephrotoxic agents; Status: Acute (2) Hypotension Assessment & Plan: Overall improved, increasing midodrine as above; Status: Acute (3) Liver cirrhosis Assessment & Plan: With ensuing abd ascites; patient does have sodium retention state and so is prone to developing recurrent ascites; abd still somewhat distended; -In the setting of HRS, diuretics to prevent ascites re-accumulation may worsen renal function; can give trial of low dose lasix 20 mg daily and aldactone 25 mg daily; Status: Chronic (4) Hyponatremia Status: Acute
[2018-01-10 00:12] VITALS: RESP 20
[2018-01-10] MEDS: SODIUM CHLORIDE 0.9% IVPB SCH ×2 (00:50→08:56)
[2018-01-10] MEDS: OCTREOTIDE IVPB SCH ×2 (00:50→08:56)
[2018-01-10] MEDS: (Novolin R) Insulin Human Regular 100 units/ml vial SC SCH ×3 (07:33→17:09)
--- NOTE | 2018-01-10 07:47 | CP.PCM.PN ---
<Tila Michelle - Last Filed: 01/10/18 07:47> Subjective - Date & Time of Evaluation Date of Evaluation: 01/10/18 Time of Evaluation: 07:30 - Subjective Subjective: GI Fellow PGY4 Progress Note Pt seen and evaluated at bedside, pt doing well with no complaints. Tolerating diet with no more abdominal pain. No rectal bleeding or hematemesis. ROS: A 12pt ROS was negative except as above. Objective - Vital Signs/Intake and Output Vital Signs (last 24 hours): Temp Pulse Resp BP Pulse Ox 98.3 F 79 20 117/72 96 01/10/18 00:00 01/10/18 00:00 01/10/18 00:00 01/10/18 00:00 01/10/18 00:00 Intake and Output: 01/10/18 01/10/18 06:59 18:59 Intake Total 1200 Balance 1200 - Medications Medications: Current Medications Dextrose (Dextrose 50% Inj) 0 ml IV STAT PRN; Protocol PRN Reason: Hypoglycemia Protocol Dextrose (Glutose 15) 0 gm PO ONCE PRN; Protocol PRN Reason: Hypoglycemia Protocol Folic Acid (Folic Acid) 1 mg PO DAILY [facility] Last Admin: 01/09/18 09:24 Dose: 1 mg Glucagon (Glucagen Diagnostic Kit) 0 mg IM STAT PRN; Protocol PRN Reason: Hypoglycemia Protocol Dextrose (Dextrose 5% In Water 1000 Ml) 1,000 mls @ 0 mls/hr IV .Q0M PRN; Protocol; Per Protocol PRN Reason: Hypoglycemia Protocol Octreotide Acetate 100 mcg/ (Sodium Chloride) 52 mls @ 102 mls/hr IVPB Q8H [facility] Last Admin: 01/10/18 00:50 Dose: 102 mls/hr Insulin Human Regular (Novolin R) 0 unit SC ACHS [facility] PRN Reason: Protocol Last Admin: 01/10/18 07:33 Dose: Not Given Lactulose (Enulose) 20 gm PO HS [facility] Last Admin: 01/09/18 21:28 Dose: 20 gm Midodrine (Proamatine) 5 mg PO TID [facility] Last Admin: 01/09/18 17:09 Dose: 5 mg Multivitamins (Hexavitamin) 1 tab PO DAILY [facility] Last Admin: 01/09/18 11:18 Dose: 1 tab Phytonadione (Vitamin K Tab) 5 mg PO DAILY [facility] Stop: 01/10/18 12:31 Last Admin: 01/09/18 09:24 Dose: 5 mg Spironolactone (Aldactone) 50 mg PO DAILY [facility] Last Admin: 01/07/18 10:44 Dose: 50 mg Thiamine HCl (Vitamin B1 Tab) 100 mg PO DAILY [facility] Last Admin: 01/09/18 09:24 Dose: 100 mg - Labs Labs: 01/09/18 08:13 01/09/18 08:13 PT 25.9 SECONDS (9.7-12.2) H 01/09/18 08:13 INR 2.4 01/09/18 08:13 APTT 32 SECONDS (21-34) 01/04/18 12:29 - Constitutional Appears: Non-toxic, No Acute Distress - Head Exam Head Exam: ATRAUMATIC, NORMAL INSPECTION, NORMOCEPHALIC - Eye Exam Eye Exam: EOMI, Normal appearance, PERRL Pupil Exam: PERRL - ENT Exam ENT Exam: Mucous Membranes Moist - Neck Exam Neck Exam: Full ROM, Normal Inspection - Respiratory Exam Respiratory Exam: Clear to Ausculation Bilateral, NORMAL BREATHING PATTERN - Cardiovascular Exam Cardiovascular Exam: RRR, +S1, +S2 - GI/Abdominal Exam GI & Abdominal Exam: Soft, Normal Bowel Sounds - Rectal Exam Rectal Exam: Deferred - Extremities Exam Extremities Exam: Full ROM, Normal Inspection - Back Exam Back Exam: NORMAL INSPECTION - Neurological Exam Neurological Exam: Alert, Awake, Oriented x3 - Psychiatric Exam Psychiatric exam: Flat Affect - Skin Skin Exam: Dry, Intact, Normal Color, Warm Assessment and Plan - Assessment and Plan (Free Text) Assessment: This is a 52 year old male with PMHx of Liver Cirrhosis with recurrent ascites, hepatic encephalopathy, ?chronic pancreatitis, with pancreatic insufficiency, Anemia of Chronic Disease admitted for AMS, abdominal pain, found to have hemoglobin of 2.9 and potassium of 1.4 on admission. 1. Acute Anemia s/p EGD with Gastric Ulcer clean based no bleeding 2. Decompensated alcoholic cirrhosis MELD 35 on admission, improving 3. Alcoholic Hepatitis on admission DF 65.2, improving 4. Ascites s/p paracentesis neg SBP 5. Hepatic encephalopathy-improved 6. SHUN r/o HRS Plan: -Continue supportive care -Anemia, no active GI bleeding s/p EGD with no esophageal varices, +Gastric ulcer clean based with no bleeding -Hgb low, continue to monitor and transfuse as needed s/p 2U PRBCs -Ascites s/p paracentesis neg SBP -Monitor for alcohol withdrawal -Replete electrolytes -SHUN, monitor renal function, improving with midodrine and albumin, on octreotide -Hold diuretics -Nephrology cs -Lactulose and rifaxamin daily for HE -Abd CT and MRCP from 07/2017 neg for HCC -Alcohol cessation counseling -Please call with any questions or concerns <Merlin Constantino Y - Last Filed: 01/10/18 08:23> Objective - Vital Signs/Intake and Output Vital Signs (last 24 hours): Temp Pulse Resp BP Pulse Ox 98.3 F 79 20 117/72 96 01/10/18 00:00 01/10/18 00:00 01/10/18 00:00 01/10/18 00:00 01/10/18 00:00 Intake and Output: 01/10/18 01/10/18 06:59 18:59 Intake Total 1200 Balance 1200 - Medications Medications: Current Medications Dextrose (Dextrose 50% Inj) 0 ml IV STAT PRN; Protocol PRN Reason: Hypoglycemia Protocol Dextrose (Glutose 15) 0 gm PO ONCE PRN; Protocol PRN Reason: Hypoglycemia Protocol Folic Acid (Folic Acid) 1 mg PO DAILY [facility] Last Admin: 01/09/18 09:24 Dose: 1 mg Glucagon (Glucagen Diagnostic Kit) 0 mg IM STAT PRN; Protocol PRN Reason: Hypoglycemia Protocol Dextrose (Dextrose 5% In Water 1000 Ml) 1,000 mls @ 0 mls/hr IV .Q0M PRN; Protocol; Per Protocol PRN Reason: Hypoglycemia Protocol Octreotide Acetate 100 mcg/ (Sodium Chloride) 52 mls @ 102 mls/hr IVPB Q8H [facility] Last Admin: 01/10/18 00:50 Dose: 102 mls/hr Insulin Human Regular (Novolin R) 0 unit SC ACHS [facility] PRN Reason: Protocol Last Admin: 01/10/18 07:33 Dose: Not Given Lactulose (Enulose) 20 gm PO HS [facility] Last Admin: 01/09/18 21:28 Dose: 20 gm Midodrine (Proamatine) 5 mg PO TID [facility] Last Admin: 01/09/18 17:09 Dose: 5 mg Multivitamins (Hexavitamin) 1 tab PO DAILY [facility] Last Admin: 01/09/18 11:18 Dose: 1 tab Phytonadione (Vitamin K Tab) 5 mg PO DAILY [facility] Stop: 01/10/18 12:31 Last Admin: 01/09/18 09:24 Dose: 5 mg Rifaximin (Xifaxan) 550 mg PO BID [facility] PRN Reason: Protocol Spironolactone (Aldactone) 50 mg PO DAILY [facility] Last Admin: 01/07/18 10:44 Dose: 50 mg Thiamine HCl (Vitamin B1 Tab) 100 mg PO DAILY [facility] Last Admin: 01/09/18 09:24 Dose: 100 mg - Labs Labs: 01/09/18 08:13 01/09/18 08:13 PT 25.9 SECONDS (9.7-12.2) H 01/09/18 08:13 INR 2.4 01/09/18 08:13 APTT 32 SECONDS (21-34) 01/04/18 12:29 Attending/Attestation - Attestation I have personally seen and examined this patient.: Yes I have fully participated in the care of the patient.: Yes I have reviewed all pertinent clinical information, including history, physical exam and plan: Yes Notes (Text): 01/10/18 08:19 I have seen and examined patient with GI fellow. No acute events overnight, he is seen resting in bed comfortably. He had one bowel movement overnight and denies abdominal pain, nausea, vomiting, fever/chills. Tolerating PO diet without difficulty. Review of vitals from today are normal. Decompensated ETOH cirrhosis Anemia, s/p EGD showing gastric ulcer Acute renal insufficiency, HRS - Low sodium diet as tolerated - Creatinine continues to improve, continue with octreotide/midodrine therapy and follow up renal recommendations - Continue to monitor H/H, s/p PRBC transfusion yesterday - Continue with lactulose/xifaxan therapy for HE prevention - Awaiting AFP, no liver lesions seen on prior imaging from this year - ETOH cessation counseling - No further planned GI intervention, will sign off case. Suggest additional outpatient follow up. Please reconsult as necessary, thank you.
[2018-01-10 08:29] LABS: BASO # 0.1 K/uL (0.0-0.2); BASO % 0.9 % (0.0-2.0); EOS # 0.1 K/uL (0.0-0.7); EOS % 1.1 % (0.0-4.0); HEMOGLOBIN 8.6 g/dL (12.0-18.0); LYMPH # 1.5 K/uL (1.0-4.3); LYMPH % 18.1 % (20.0-40.0); MEAN CELL VOLUME 84.4 fL (80.0-94.0); MEAN CORPUSCULAR HEMOGLOBIN 29.6 pg (27.0-31.0); MEAN PLATELET VOLUME 8.6 fL (7.2-11.7); MONO % 11.8 % (0.0-10.0); NEUT # 5.6 K/uL (1.8-7.0); NEUT % 68.1 % (50.0-75.0); NRBC % 0.1 % (0.0-2.0); RBC 2.91 Mil/uL (4.40-5.90); WHITE BLOOD COUNT 8.2 K/uL (4.8-10.8)
[2018-01-10 08:52] LABS: ALB/GLOB RATIO 0.9 (1.0-2.1); ALBUMIN 2.8 g/dL (3.5-5.0); CALCIUM 8.3 mg/dl (8.6-10.4)
[2018-01-10] MEDS: LIPASE/PROTEASE/AMYLASE 21,000 U ECC PO SCH ×2 (09:01→11:46)
[2018-01-10] MEDS: Multiple Vitamins Tab PO SCH (09:05)
--- NOTE | 2018-01-10 11:28 | CP.PCM.DIS ---
Addendum entered and electronically signed by Amanda Whitley 01/10/18 17:12 : Patient was unable to get Rifaximin upon discharge as it was unavailable at the [facility]. Original Note: <Amanda Whitley - Last Filed: 01/10/18 16:38> Provider - Provider Date of Admission: 01/04/18 14:14 Attending physician: Purnima Shepard DO Consults: ICU (Dr. Mari) Nephro (Dr. Potter) GI (Dr. Constantino) Time Spent in preparation of Discharge (in minutes): 45 Diagnosis - Discharge Diagnosis (1) Liver cirrhosis Status: Chronic (2) Altered mental state Status: Resolved (3) Pancreatic insufficiency Status: Chronic (4) Alcohol dependence Status: Chronic (5) Anemia Status: Chronic (6) Ascites Status: Chronic Hospital Course - Lab Results Lab Results: Micro Results 01/04/18 18:10 Blood Blood Culture - Final NO GROWTH AFTER 5 DAYS 01/04/18 18:10 Blood Blood Culture - Final NO GROWTH AFTER 5 DAYS 01/04/18 18:10 Blood Gram Stain - Final TEST NOT PERFORMED 01/05/18 Unknown Abdominal Fluid Gram Stain - Final 01/05/18 Unknown Abdominal Fluid Anaerobic Culture - Final NO ANAEROBES ISOLATED. 01/05/18 Unknown Abdominal Fluid Body Fluid Culture - Preliminary NO GROWTH AFTER 3 DAYS 01/07/18 15:39 Naris MRSA Culture - Final MRSA NOT DETECTED 01/06/18 19:38 Other: Please Indicate Fungal Culture - Preliminary 01/06/18 19:38 Other: Please Indicate Mycobacterial Culture - Preliminary 01/04/18 17:17 Naris MRSA Culture (Admit) - Final MRSA NOT DETECTED Most Recent Lab Values WBC 8.2 K/uL (4.8-10.8) 01/10/18 08:16 RBC 2.91 Mil/uL (4.40-5.90) L 01/10/18 08:16 Hgb 8.6 g/dL (12.0-18.0) L 01/10/18 08:16 Hct 24.6 % (35.0-51.0) L 01/10/18 08:16 MCV 84.4 fL (80.0-94.0) 01/10/18 08:16 MCH 29.6 pg (27.0-31.0) 01/10/18 08:16 MCHC 35.0 g/dL (33.0-37.0) 01/10/18 08:16 RDW 18.0 % (11.5-14.5) H 01/10/18 08:16 Plt Count 56 K/uL (130-400) L 01/10/18 08:16 MPV 8.6 fL (7.2-11.7) 01/10/18 08:16 Neut % (Auto) 68.1 % (50.0-75.0) 01/10/18 08:16 Lymph % (Auto) 18.1 % (20.0-40.0) L 01/10/18 08:16 Mcmullen % (Auto) 11.8 % (0.0-10.0) H 01/10/18 08:16 Eos % (Auto) 1.1 % (0.0-4.0) 01/10/18 08:16 Baso % (Auto) 0.9 % (0.0-2.0) 01/10/18 08:16 Neut # (Auto) 5.6 K/uL (1.8-7.0) 01/10/18 08:16 Lymph # (Auto) 1.5 K/uL (1.0-4.3) 01/10/18 08:16 Mcmullen # (Auto) 1.0 K/uL (0.0-0.8) H 01/10/18 08:16 Eos # (Auto) 0.1 K/uL (0.0-0.7) 01/10/18 08:16 Baso # (Auto) 0.1 K/uL (0.0-0.2) 01/10/18 08:16 Neutrophils % (Manual) 86 % (50-75) H 01/05/18 07:53 Band Neutrophils % 3 % (0-2) H 01/05/18 07:53 Lymphocytes % (Manual) 9 % (20-40) L 01/05/18 07:53 Monocytes % (Manual) 2 % (0-10) 01/05/18 07:53 Platelet Estimate Decreased (NORMAL) L 01/05/18 07:53 Hypochromasia (manual) Slight 01/05/18 07:53 Anisocytosis (manual) Slight 01/05/18 07:53 Target Cells Moderate 06/21/18 07:53 Smear Path Review 01/04/18 13:22 Retic Count 0.1 % (0.5-1.5) L D 01/04/18 14:10 Haptoglobin 199.3 mg/dL (30.0-200.0) 01/04/18 14:12 PT 25.9 SECONDS (9.7-12.2) H 01/09/18 08:13 INR 2.4 01/09/18 08:13 APTT 32 SECONDS (21-34) 01/04/18 12:29 pO2 20 mm/Hg (30-55) L 01/05/18 14:05 VBG pH 7.31 (7.32-7.43) L 01/05/18 14:05 VBG pCO2 44 mmHg (40-60) 01/05/18 14:05 VBG HCO3 19.8 mmol/L 01/05/18 14:05 VBG Total CO2 23.6 mmol/L (22-28) 01/05/18 14:05 VBG O2 Sat (Calc) 47.1 % (40-65) 01/05/18 14:05 VBG Base Excess -4.1 mmol/L (0.0-2.0) L 01/05/18 14:05 VBG Potassium 9.8 mmol/L (3.6-5.2) H* 01/05/18 14:05 Sodium 116.0 mmol/l (132-148) L* 01/05/18 14:05 Chloride 87.0 mmol/L (98-107) L 01/05/18 14:05 Glucose 536 mg/dl (75-110) H* D 01/05/18 14:05 Lactate 1.9 mmol/L (0.7-2.1) 01/05/18 14:05 Crit Value Called To Dr darrell boyd 01/05/18 14:05 Crit Value Called By Geeta urbina solar pv installer 01/05/18 14:05 Crit Value Read Back Y 01/05/18 14:05 Blood Gas Notified Time 1410 01/05/18 14:05 Sodium 136 mmol/L (132-148) 01/10/18 08:16 Potassium 3.6 mmol/L (3.6-5.2) 01/10/18 08:16 Chloride 102 mmol/L (98-107) 01/10/18 08:16 Carbon Dioxide 21 mmol/L (22-30) L 01/10/18 08:16 Anion Gap 16 (10-20) 01/10/18 08:16 BUN 26 mg/dL (9-20) H 01/10/18 08:16 Creatinine 1.7 mg/dL (0.8-1.5) H 01/10/18 08:16 Est GFR ( Amer) 51 01/10/18 08:16 Est GFR (Non-Af Amer) 43 01/10/18 08:16 POC Glucose (mg/dL) 167 mg/dL (65-110) H 01/10/18 06:59 Random Glucose 146 mg/dL (75-110) H 01/10/18 08:16 Lactic Acid 1.8 mmol/L (0.7-2.1) 01/05/18 07:53 Calcium 8.3 mg/dl (8.6-10.4) L 01/10/18 08:16 Phosphorus 3.0 mg/dL (2.5-4.5) 01/10/18 08:16 Magnesium 1.5 mg/dL (1.6-2.3) L 01/10/18 08:16 Iron 104 ug/dL (49-181) 01/04/18 14:10 TIBC 171 ug/dL (250-450) L 01/04/18 14:10 % Saturation 61 (20-55) H 01/04/18 14:10 Transferrin 90.05 mg/dL (206-381) L 01/04/18 14:12 Ferritin 1460.0 ng/mL 01/04/18 14:10 Total Bilirubin 8.2 mg/dL (0.2-1.3) H 01/10/18 08:16 AST 55 U/L (17-59) 01/10/18 08:16 ALT 31 U/L (21-72) 01/10/18 08:16 Alkaline Phosphatase 80 U/L (38-126) 01/10/18 08:16 Ammonia 16 umol/L (9-33) D 01/05/18 15:16 Total Creatine Kinase 38 U/L (55-170) L 01/06/18 06:40 Total Protein 5.9 g/dL (6.3-8.3) L 01/10/18 08:16 Albumin 2.8 g/dL (3.5-5.0) L 01/10/18 08:16 Globulin 3.0 gm/dL (2.2-3.9) 01/10/18 08:16 Albumin/Globulin Ratio 0.9 (1.0-2.1) L 01/10/18 08:16 Triglycerides 74 mg/dL (0-149) D 01/06/18 06:40 Lipase 317 U/L (23-300) H 01/04/18 13:22 Venous Blood Potassium 9.8 mmol/L (3.6-5.2) H* 01/05/18 14:05 Urine Color Di (YELLOW) 01/05/18 05:56 Urine Clarity Clear (Clear) 01/05/18 05:56 Urine pH 5.0 (5.0-8.0) 01/05/18 05:56 Ur Specific [place] 1.010 (1.003-1.030) 01/05/18 05:56 Urine Protein Negative mg/dL (NEGATIVE) 01/05/18 05:56 Urine Glucose (UA) Normal mg/dL (Normal) 01/05/18 05:56 Urine Ketones Negative mg/dL (NEGATIVE) 01/05/18 05:56 Urine Blood Negative (NEGATIVE) 01/05/18 05:56 Urine Nitrate Negative (NEGATIVE) 01/05/18 05:56 Urine Bilirubin Negative (NEGATIVE) 01/05/18 05:56 Urine Urobilinogen 4.0 mg/dL (0.2-1.0) 01/05/18 05:56 Ur Leukocyte Esterase Neg Farhana/uL (Negative) 01/05/18 05:56 Urine WBC (Auto) 1 /hpf (0-5) 01/05/18 05:56 Urine RBC (Auto) 1 /hpf (0-3) 01/05/18 05:56 Hyaline Casts 0-2 /lpf (0-2) 01/05/18 05:56 Urine Osmolality 351 mosm/kg (300-1000) 01/08/18 21:39 Ur Random Creatinine 98.9 mg/dL 01/08/18 21:39 U Random Total Protein 25.0 mg/dL (0.0-12.0) H 01/05/18 15:16 Ur Random Sodium 6 mmol/L 01/08/18 21:39 Urine Chloride 20 mmol/L (32-290) L 01/05/18 15:16 Fluid Source Peritoneal/ascites 01/06/18 19:38 Fluid Appearance Sl cloudy (CLEAR) 01/06/18 19:38 Fluid WBC 116.0 /mm3 (0.0-300.0) 01/06/18 19:38 Fluid RBC 3076.0 /mm3 (0.0-0.0) H 01/06/18 19:38 Fluid Tot Cell Count 100 (0-0) H 01/06/18 19:38 Fluid Neutrophils 39.0 % (0-0) H 01/06/18 19:38 Fluid Lymphocytes 57.0 % (0-0) H 01/06/18 19:38 Fld Monocyte/Macrophag 3 % (0-0) H 01/06/18 19:38 Fluid Comment 01/06/18 19:38 Peritoneal Tot Protein <3.0 g/dL 01/06/18 19:38 Peritoneal Glucose 185 mg/dL 01/06/18 19:38 Pleural LDH 167 U/L 01/06/18 19:38 Stool Occult Blood Negative (NEGATIVE) 01/04/18 14:30 Urine Opiates Screen Negative (NEGATIVE) 01/05/18 05:56 Urine Methadone Screen Negative (NEGATIVE) 01/05/18 05:56 Ur Barbiturates Screen Negative (NEGATIVE) 01/05/18 05:56 Ur Phencyclidine Scrn Negative (NEGATIVE) 01/05/18 05:56 Ur Amphetamines Screen Negative (NEGATIVE) 01/05/18 05:56 U Benzodiazepines Scrn Negative (NEGATIVE) 01/05/18 05:56 U Oth Cocaine Metabols Negative (NEGATIVE) 01/05/18 05:56 U Cannabinoids Screen Negative (NEGATIVE) 01/05/18 05:56 Alcohol, Quantitative 25 mg/dl (0-10) H 01/04/18 13:22 Blood Type O POSITIVE 01/09/18 13:57 Antibody Screen Negative 01/09/18 13:57 - Hospital Course Hospital Course: "This is a 52 year old male with PMHx of Liver Cirrhosis with recurrent ascites , hepatic encephalopathy, ?chronic pancreatitis, with pancreatic insufficiency, Anemia of Chronic Disease admitted for AMS, abdominal pain, found to have hemoglobin of 2.9 and potassium of 1.4 on admission. As per EMR, primary attending spoke to long time friend of patient,who reports he received a phone call from [place] yesterday around 3pm in the afternoon indicated that his belly is hurting him and he feels it firm and wanted to go to the hospital. His friend was out of state at time, came to draft roller picker his friend this morning. He reports that the friend did not look good this morning, appear confused, staring off to space, and couldn't stand on his feet. He also reported that he did see alcohol bottle in his friend's house. He reports he has known patient alexnader for close to 18 years and noted he is a drinker since 1999. Patient admitted to ICU for close monitoring. " Patient admitted for hepatic encephalopathy, electrolyte abnormalities, and anemia to the ICU. For patient's anemia patient was transfused 3 u PRBCs and 2 u FFP. Patient had to have another blood transfusion of 2 u PRBC on 01/09, after which his hemoglobin stabilized. Patient had electrolyte abnormalities which were repleted and monitored closely. Patient's lactic acid downtrended 9.2--> 8.2-->5.3-->2.0-->1.8 and elevated anion gap normalized. For patient's hepatic encephalograph and liver cirrhosis patient was given Aldactone, protonix, and Creon. GI, Dr. Constantino was consulted. Patient had decompensated alcoholic cirrhosis MELD 35 on admission. Patient given IV PPI drip, IV octreotide Drip, IV abx Rocephin daily with cirrhosis and possible GI bleed. CT chest/abdomen/pelvis w/o contrast (01/05/18): increased number of hepatic lesions lung poorly characterized in the absence of IV contrast. extensive abdominal ascites and small pleural effusions. Nonspecific hyperdense area layering dependently within the ascites on the left. Nonspecific thickening of the colon which may be reactive in the setting of ascites or may represent colitis. Mild left hydoureteronephrosis without evidence of obstrutive calculus EGD was done on 01/06/18 which showed LA grade B erosive esophagitis, non bleeding ulcer with a clean base, gastritis, large amount of bilious gastric fluid. Patient had a paracentesis done on 01/06 with 7 liters of fluid removed. Fluid had no growth which ruled out SBP. For patient's pancreatic insufficiency patient was given Pancreaze. For patient's suspected hepatorenal syndrome patient was given Midodrine and albumin. For patient's alcohol abuse patient was treated with MV, thiamine, folic acid, and ativan. Patient was transferred out of the ICU on 01/08. Patient will need close follow up with GI. Patient will need to stop drinking alcohol. Patient explained the importance of this. This is a summary of the patient's hospital course, please see chart for details. Discharge Exam - Additional Findings Additional findings: - Constitutional Appears: Non-toxic, No Acute Distress, Cachectic, Chronically Ill - Head Exam Head Exam: NORMAL INSPECTION - Eye Exam Eye Exam: EOMI Pupil Exam: NORMAL ACCOMODATION, PERRL - ENT Exam ENT Exam: Mucous Membranes Moist - Respiratory Exam Respiratory Exam: Rales (bibasilar), NORMAL BREATHING PATTERN. absent: Rhonchi , Wheezes, Stridor - Cardiovascular Exam Cardiovascular Exam: Tachycardia, +S1, +S2 - GI/Abdominal Exam GI & Abdominal Exam: Distended (improved), Soft, Normal Bowel Sounds, Tenderness. absent: Firm, Guarding, Rigid, Rebound - Extremities Exam Extremities Exam: Normal Capillary Refill. absent: Pedal Edema, Tenderness - Neurological Exam Neurological Exam: Alert, Awake, Oriented x3 Neuro motor strength exam: Left Upper Extremity: 5, Right Upper Extremity: 5, Left Lower Extremity: 5, Right Lower Extremity: 5 - Skin Skin Exam: Dry, Intact, Normal Color, Warm bruising noted over anterior chest Discharge Plan - Discharge Medications Prescriptions: Folic Acid 1 mg PO DAILY #30 tab Lactulose [Enulose] 20 gm PO HS 30 Days udc Lipase/Protease/Amylase [Pancreaze DR 21,000U-54,700U-83,900U] 21,000 u PO TIDCC #90 ecc Midodrine [Proamatine] 5 mg PO TID #90 tab Multivitamins [Hexavitamin] 1 tab PO DAILY #30 tab rifAXIMin [Xifaxan] 550 mg PO BID #60 tab Spironolactone [Aldactone] 50 mg PO DAILY #30 tab Thiamine [Vitamin B1 Tab] 100 mg PO DAILY #30 tab - Follow Up Plan Condition: GUARDED Disposition: HOME/ ROUTINE Instructions: Hypokalemia (DC), Cirrhosis (DC), Alcohol Abuse and Alcoholism ( DC), Normocytic Normochromic Anemia (DC) Additional Instructions: Patient stable for discharge as per Dr. Alexander and GI. Patient to take the following medications: Lactulose 20gm, daily at 10pm Pancreaze, 1 tab daily at 8am, 1pm, 8pm (breakfast, lunch, dinner) Midodrine 5mg, 1 tab daily at 8am, 1pm, 8pm (breakfast, lunch, dinner) Rifaximin 550mg, 1 tab daily at 8am and 8pm Aldactone 50mg, 1 tab daily at 8am Multivitamin, 1 tab daily at 8am Folic Acid 1mg, 1 tab daily at 8am Thiamine 100mg, 1 tab daily at 8am Patient to please call [facility] ([phone]) for coordination of care and for GI follow up within 7-10 days. Referrals: [facility] [Provider Group] <Diomedes Alexander J - Last Filed: 01/10/18 20:24> Provider - Provider Date of Admission: 01/04/18 14:14 Attending physician: Purnima Shepard DO Time Spent in preparation of Discharge (in minutes): 40 Hospital Course - Lab Results Lab Results: Micro Results 01/05/18 Unknown Abdominal Fluid Gram Stain - Final 01/05/18 Unknown Abdominal Fluid Anaerobic Culture - Final NO ANAEROBES ISOLATED. 01/05/18 Unknown Abdominal Fluid Body Fluid Culture - Final No growth. 01/04/18 18:10 Blood Blood Culture - Final NO GROWTH AFTER 5 DAYS 01/04/18 18:10 Blood Blood Culture - Final NO GROWTH AFTER 5 DAYS 01/04/18 18:10 Blood Gram Stain - Final TEST NOT PERFORMED 01/07/18 15:39 Naris MRSA Culture - Final MRSA NOT DETECTED 01/06/18 19:38 Other: Please Indicate Fungal Culture - Preliminary 01/06/18 19:38 Other: Please Indicate Mycobacterial Culture - Preliminary 01/04/18 17:17 Naris MRSA Culture (Admit) - Final MRSA NOT DETECTED Most Recent Lab Values WBC 8.3 K/uL (4.8-10.8) 01/10/18 13:54 RBC 3.06 Mil/uL (4.40-5.90) L 01/10/18 13:54 Hgb 9.0 g/dL (12.0-18.0) L 01/10/18 13:54 Hct 26.1 % (35.0-51.0) L 01/10/18 13:54 MCV 85.1 fL (80.0-94.0) 01/10/18 13:54 MCH 29.5 pg (27.0-31.0) 01/10/18 13:54 MCHC 34.6 g/dL (33.0-37.0) 01/10/18 13:54 RDW 18.0 % (11.5-14.5) H 01/10/18 13:54 Plt Count 60 K/uL (130-400) L 01/10/18 13:54 MPV 8.6 fL (7.2-11.7) 01/10/18 13:54 Neut % (Auto) 73.8 % (50.0-75.0) 01/10/18 13:54 Lymph % (Auto) 14.3 % (20.0-40.0) L 01/10/18 13:54 Mcmullen % (Auto) 10.3 % (0.0-10.0) H 01/10/18 13:54 Eos % (Auto) 0.9 % (0.0-4.0) 01/10/18 13:54 Baso % (Auto) 0.7 % (0.0-2.0) 01/10/18 13:54 Neut # (Auto) 6.1 K/uL (1.8-7.0) 01/10/18 13:54 Lymph # (Auto) 1.2 K/uL (1.0-4.3) 01/10/18 13:54 Mcmullen # (Auto) 0.9 K/uL (0.0-0.8) H 01/10/18 13:54 Eos # (Auto) 0.1 K/uL (0.0-0.7) 01/10/18 13:54 Baso # (Auto) 0.1 K/uL (0.0-0.2) 01/10/18 13:54 Neutrophils % (Manual) 86 % (50-75) H 01/05/18 07:53 Band Neutrophils % 3 % (0-2) H 01/05/18 07:53 Lymphocytes % (Manual) 9 % (20-40) L 01/05/18 07:53 Monocytes % (Manual) 2 % (0-10) 01/05/18 07:53 Platelet Estimate Decreased (NORMAL) L 01/05/18 07:53 Hypochromasia (manual) Slight 01/05/18 07:53 Anisocytosis (manual) Slight 01/05/18 07:53 Target Cells Moderate 01/05/18 07:53 Smear Path Review 01/04/18 13:22 Retic Count 0.1 % (0.5-1.5) L D 01/04/18 14:10 Haptoglobin 199.3 mg/dL (30.0-200.0) 01/04/18 14:12 PT 25.9 SECONDS (9.7-12.2) H 01/09/18 08:13 INR 2.4 01/09/18 08:13 APTT 32 SECONDS (21-34) 01/04/18 12:29 pO2 20 mm/Hg (30-55) L 01/05/18 14:05 VBG pH 7.31 (7.32-7.43) L 01/05/18 14:05 VBG pCO2 44 mmHg (40-60) 01/05/18 14:05 VBG HCO3 19.8 mmol/L 01/05/18 14:05 VBG Total CO2 23.6 mmol/L (22-28) 01/05/18 14:05 VBG O2 Sat (Calc) 47.1 % (40-65) 01/05/18 14:05 VBG Base Excess -4.1 mmol/L (0.0-2.0) L 01/05/18 14:05 VBG Potassium 9.8 mmol/L (3.6-5.2) H* 01/05/18 14:05 Sodium 116.0 mmol/l (132-148) L* 01/05/18 14:05 Chloride 87.0 mmol/L (98-107) L 01/05/18 14:05 Glucose 536 mg/dl (75-110) H* D 01/05/18 14:05 Lactate 1.9 mmol/L (0.7-2.1) 01/05/18 14:05 Crit Value Called To Dr darrell boyd 01/05/18 14:05 Crit Value Called By Geeta urbina solar pv installer 01/05/18 14:05 Crit Value Read Back Y 01/05/18 14:05 Blood Gas Notified Time 1410 01/05/18 14:05 Sodium 136 mmol/L (132-148) 01/10/18 08:16 Potassium 3.6 mmol/L (3.6-5.2) 01/10/18 08:16 Chloride 102 mmol/L (98-107) 01/10/18 08:16 Carbon Dioxide 21 mmol/L (22-30) L 01/10/18 08:16 Anion Gap 16 (10-20) 01/10/18 08:16 BUN 26 mg/dL (9-20) H 01/10/18 08:16 Creatinine 1.7 mg/dL (0.8-1.5) H 01/10/18 08:16 Est GFR ( Amer) 51 01/10/18 08:16 Est GFR (Non-Af Amer) 43 01/10/18 08:16 POC Glucose (mg/dL) 313 mg/dL (65-110) H 01/10/18 16:24 Random Glucose 146 mg/dL (75-110) H 01/10/18 08:16 Lactic Acid 1.8 mmol/L (0.7-2.1) 01/05/18 07:53 Calcium 8.3 mg/dl (8.6-10.4) L 01/10/18 08:16 Phosphorus 3.0 mg/dL (2.5-4.5) 01/10/18 08:16 Magnesium 1.5 mg/dL (1.6-2.3) L 01/10/18 08:16 Iron 104 ug/dL (49-181) 01/04/18 14:10 TIBC 171 ug/dL (250-450) L 01/04/18 14:10 % Saturation 61 (20-55) H 01/04/18 14:10 Transferrin 90.05 mg/dL (206-381) L 01/04/18 14:12 Ferritin 1460.0 ng/mL 01/04/18 14:10 Total Bilirubin 8.2 mg/dL (0.2-1.3) H 01/10/18 08:16 AST 55 U/L (17-59) 01/10/18 08:16 ALT 31 U/L (21-72) 01/10/18 08:16 Alkaline Phosphatase 80 U/L (38-126) 01/10/18 08:16 Ammonia 16 umol/L (9-33) D 01/05/18 15:16 Total Creatine Kinase 38 U/L (55-170) L 01/06/18 06:40 Total Protein 5.9 g/dL (6.3-8.3) L 01/10/18 08:16 Albumin 2.8 g/dL (3.5-5.0) L 01/10/18 08:16 Globulin 3.0 gm/dL (2.2-3.9) 01/10/18 08:16 Albumin/Globulin Ratio 0.9 (1.0-2.1) L 01/10/18 08:16 Triglycerides 74 mg/dL (0-149) D 01/06/18 06:40 Lipase 317 U/L (23-300) H 01/04/18 13:22 Venous Blood Potassium 9.8 mmol/L (3.6-5.2) H* 01/05/18 14:05 Urine Color Di (YELLOW) 01/05/18 05:56 Urine Clarity Clear (Clear) 01/05/18 05:56 Urine pH 5.0 (5.0-8.0) 01/05/18 05:56 Ur Specific [place] 1.010 (1.003-1.030) 01/05/18 05:56 Urine Protein Negative mg/dL (NEGATIVE) 01/05/18 05:56 Urine Glucose (UA) Normal mg/dL (Normal) 01/05/18 05:56 Urine Ketones Negative mg/dL (NEGATIVE) 01/05/18 05:56 Urine Blood Negative (NEGATIVE) 01/05/18 05:56 Urine Nitrate Negative (NEGATIVE) 01/05/18 05:56 Urine Bilirubin Negative (NEGATIVE) 01/05/18 05:56 Urine Urobilinogen 4.0 mg/dL (0.2-1.0) 01/05/18 05:56 Ur Leukocyte Esterase Neg Farhana/uL (Negative) 01/05/18 05:56 Urine WBC (Auto) 1 /hpf (0-5) 01/05/18 05:56 Urine RBC (Auto) 1 /hpf (0-3) 01/05/18 05:56 Hyaline Casts 0-2 /lpf (0-2) 01/05/18 05:56 Urine Osmolality 351 mosm/kg (300-1000) 01/08/18 21:39 Ur Random Creatinine 98.9 mg/dL 01/08/18 21:39 U Random Total Protein 25.0 mg/dL (0.0-12.0) H 01/05/18 15:16 Ur Random Sodium 6 mmol/L 01/08/18 21:39 Urine Chloride 20 mmol/L (32-290) L 01/05/18 15:16 Fluid Source Peritoneal/ascites 01/06/18 19:38 Fluid Appearance Sl cloudy (CLEAR) 01/06/18 19:38 Fluid WBC 116.0 /mm3 (0.0-300.0) 01/06/18 19:38 Fluid RBC 3076.0 /mm3 (0.0-0.0) H 01/06/18 19:38 Fluid Tot Cell Count 100 (0-0) H 01/06/18 19:38 Fluid Neutrophils 39.0 % (0-0) H 01/06/18 19:38 Fluid Lymphocytes 57.0 % (0-0) H 01/06/18 19:38 Fld Monocyte/Macrophag 3 % (0-0) H 01/06/18 19:38 Fluid Albumin 1.0 g/dL 01/06/18 19:38 Fluid Comment 01/06/18 19:38 Peritoneal Tot Protein <3.0 g/dL 01/06/18 19:38 Peritoneal Glucose 185 mg/dL 01/06/18 19:38 Pleural LDH 167 U/L 01/06/18 19:38 Stool Occult Blood Negative (NEGATIVE) 01/04/18 14:30 Urine Opiates Screen Negative (NEGATIVE) 01/05/18 05:56 Urine Methadone Screen Negative (NEGATIVE) 01/05/18 05:56 Ur Barbiturates Screen Negative (NEGATIVE) 01/05/18 05:56 Ur Phencyclidine Scrn Negative (NEGATIVE) 01/05/18 05:56 Ur Amphetamines Screen Negative (NEGATIVE) 01/05/18 05:56 U Benzodiazepines Scrn Negative (NEGATIVE) 01/05/18 05:56 U Oth Cocaine Metabols Negative (NEGATIVE) 01/05/18 05:56 U Cannabinoids Screen Negative (NEGATIVE) 01/05/18 05:56 Alcohol, Quantitative 25 mg/dl (0-10) H 01/04/18 13:22 Blood Type O POSITIVE 01/09/18 13:57 Antibody Screen Negative 01/09/18 13:57 Attending/Attestation - Attestation I have personally seen and examined this patient.: Yes I have fully participated in the care of the patient.: Yes I have reviewed all pertinent clinical information, including history, physical exam and plan: Yes Notes (Text): 01/10/18 20:19 Patient was seen and examined at 10:00 AM Exam, assessment and plan and discharge instructions were gone over with Resident Dr. Hassan Spoke with Marble Polisher Hand Claudia and Show Dog Trainer Watson and they will arrange for transport to [facility]. Extensive conversation with patient in [facility] concerning his diagnosis. He does not appear to be interested in stopping drinking alcohol. Diomedes Alexander D.O.
[2018-01-10 14:07] LABS: BASO # 0.1 K/uL (0.0-0.2); BASO % 0.7 % (0.0-2.0); EOS # 0.1 K/uL (0.0-0.7); EOS % 0.9 % (0.0-4.0); LYMPH # 1.2 K/uL (1.0-4.3); LYMPH % 14.3 % (20.0-40.0); MEAN CELL VOLUME 85.1 fL (80.0-94.0); MEAN CORPUSCULAR HEMOGLOBIN 29.5 pg (27.0-31.0); MEAN CORPUSCULAR HGB CONC 34.6 g/dL (33.0-37.0); MEAN PLATELET VOLUME 8.6 fL (7.2-11.7); MONO # 0.9 K/uL (0.0-0.8); MONO % 10.3 % (0.0-10.0); NEUT # 6.1 K/uL (1.8-7.0); NEUT % 73.8 % (50.0-75.0); NRBC % 0.1 % (0.0-2.0); RBC 3.06 Mil/uL (4.40-5.90); WHITE BLOOD COUNT 8.3 K/uL (4.8-10.8)
[2018-01-10 16:30] VITALS: BP 120/80; PULSE 80; TEMP 98.6; O2SAT 98
== END 2018-01-10 17:55 | disposition home or self-care (01) | DRG 557 ==
LOC: C.ER 10:59 → C.9E 14:14 → C.9I 15:19 → C.3T 01-07 15:53
PROVIDERS: ADMIT Hospitalist; ATTEND Hospitalist
PROC: 02HV33Z Insertion of Infusion Device into Superior Vena Cava, Percutaneous Approach (ICD-10-PCS; 2018-01-05)
PROC: 0W9G3ZZ Drainage of Peritoneal Cavity, Percutaneous Approach (ICD-10-PCS; 2018-01-06)
PROC: 0DB68ZX Excision of Stomach, Via Natural or Artificial Opening Endoscopic, Diagnostic (ICD-10-PCS; 2018-01-06)
PROC: 0DB58ZX Excision of Esophagus, Via Natural or Artificial Opening Endoscopic, Diagnostic (ICD-10-PCS; principal; 2018-01-06 11:47)
DX: K72.90 Hepatic failure, unspecified without coma (principal); N17.9 Acute kidney failure, unspecified; R64 Cachexia; N13.30 Unspecified hydronephrosis; K90.0 Celiac disease; K70.31 Alcoholic cirrhosis of liver with ascites; E87.6 Hypokalemia; E87.2 Acidosis; E87.1 Hypo-osmolality and hyponatremia; D69.6 Thrombocytopenia, unspecified; D50.0 Iron deficiency anemia secondary to blood loss (chronic); Z91.14 Patient's other noncompliance with medication regimen; Z66 Do not resuscitate; Z72.0 Tobacco use; Y90.1 Blood alcohol level of 20-39 mg/100 ml; K86.1 Other chronic pancreatitis; K76.6 Portal hypertension; K70.11 Alcoholic hepatitis with ascites; K64.8 Other hemorrhoids; K29.70 Gastritis, unspecified, without bleeding; I10 Essential (primary) hypertension; F10.20 Alcohol dependence, uncomplicated; E83.42 Hypomagnesemia; E26.1 Secondary hyperaldosteronism; D63.8 Anemia in other chronic diseases classified elsewhere; K25.9 Gastric ulcer, unspecified as acute or chronic, without hemorrhage or perforation; K44.9 Diaphragmatic hernia without obstruction or gangrene